=== PATIENT | female | born 1970 | race Caucasian/White ===

== ENCOUNTER → 2018-09-17 14:10 | Outpatient (CLI) | payer OTHER, SELFPAY ==
--- NOTE | 2018-09-17 14:17 | RAD_ITS ---
STUDY: X-RAY - PELVIS REASON FOR EXAM: Female, 47 years old. Inflammatory polyarthropathy. TECHNIQUE: One view of the pelvis was obtained. COMPARISON: None. FINDINGS: There is a non-specific bowel gas pattern. Normal visualized soft tissue structures. Normal bilateral iliac wings, sacroiliac joints and visualized sacrum. Normal visualized bilateral superior and inferior pubic rami. Normal pubic symphysis. Normal ischial tuberosities. Normal visualized right femoral head. Normal right acetabulum. Normal right hip joint. Normal visualized left femoral head. Normal left acetabulum. Normal left hip joint. RAD/Pelvis 1 or 2 Views IMPRESSION: Normal x-ray examination of the pelvis. Electronically Signed: Slava Lake MD at 18:46 EDT , Service support ,
[2018-09-17 15:52] LABS: Absolute Lymphocyte Count 1.12 X10^3/ul (0.83-4.51); Absolute Neutrophil Count 4.5 X10^3/uL (2.0-7.7); Basophil# 0.02 X10^3/uL; Basophil% 0.3 % (0-1); Eosinophil# 0.07 X10^3/uL; Eosinophils% 1.1 % (0-5); Hemoglobin 13.9 g/dl (12.0-15.0); Lymphocyte # 1.12 X10^3/ul (4.0); Lymphocyte % 17.7 % (19-41); Mean Corp Hgb Conc 33.1 g/gl (32-36); Mean Corpuscular Hgb 31.7 pg (27.0-32.0); Mean Corpuscular Volume 95.9 fL (81-99); Mean Platelet Vol. 10.1 fl (6.2-12.0); Monocyte# 0.53 X10^3/uL; Monocyte% 8.4 % (0-10); Neutrophil # 4.53 X10^3/uL (2.7-7.7); Neutrophil % 71.9 % (47-70); Platelet Count 248 K/mm3 (150-450); RBC Distribution Width CV 12.6 % (11.6-14.6); RBC Distribution Width SD 43.6 fl (35.1-43.9); Red Blood Count 4.38 M/mm3 (4.2-5.4); White Blood Count 6.3 K/mm3 (4.4-11.0)
[2018-09-17 15:53] LABS: Color, Urine Yellow (Yellow); Glucose, Dipstick Normal (Normal); Ketone-Dipstick Negative (Negative); Leukocyte Esterase-Dipstick Negative /ul (Negative); Nitrite-Dipstick Negative (Negative); Occult Blood-Urine 10 /ul (Negative); Protein-Dipstick Negative (Negative); Urine Bilirubin Dipstick Negative (Negative); Urine Clarity Clear (Clear); Urine Urobilinogen Normal (Normal); Urine pH 6.5 (5.0 - 8.0)
[2018-09-17 16:02] LABS: Erythrocyte Sedimentation Rate 2 mm/hr (0-20)
[2018-09-17 16:06] LABS: POSITIVE COUNT NO; POSITIVE DIFFERENTIAL NO; POSITIVE MORPHOLOGY NO
[2018-09-17 16:11] LABS: Protein, Urine (Random) 11.5 mg/dL (<11.9); Protein:Creat Ratio 234 mg/g CRE (0-200)
[2018-09-17 16:16] LABS: ALB/GLOB Ratio 1.1 RATIO (0.9-2.4); AST(SGOT) 15 U/L (15-37); Alanine Aminotransfer ALT/SGPT 22 U/L (13-56); Albumin, Serum 3.7 g/dL (3.2-5.0); Alkaline Phosphatase 64 U/L (45-117); Anion Gap 8 (5-15); BUN 14 mg/dL (7-18); BUN/Creat Ratio 11.8 RATIO (10-20); CRP < 2.90 mg/L (0.0-3.0); Calcium,Total 8.5 mg/dL (8.5-10.1); Chloride 107 mmol/L (98-107); Creatinine, Serum 1.19 mg/dL (0.55-1.02); EST Glomerular Filtration Rate 52 mL/min (>60); Est Glom Filt Rate - Afr Amer 62 mL/min (>60); Globulin 3.5 g/dL (2.2-4.2); Glucose 79 mg/dL (74-106); Potassium 3.7 mmol/L (3.5-5.1); Protein, Total 7.2 g/dL (6.4-8.2); Rheumatoid Factor < 10.0 IU/mL (<15); Sodium Level 141 mmol/L (136-145)
[2018-09-21 14:07] LABS: Anti-Centromere B Ab <0.2 AI (0.0-0.9); Anti-Jo <0.2 AI (0.0-0.9); Anti-Scleroderma-70 AB <0.2 AI (0.0-0.9); RNP Ab <0.2 AI (0.0-0.9); SJOGREN'S Anti-SS-A test < 0.2 AI (0.0-0.9); SJOGREN'S Anti-SS-B test < 0.2 AI (0.0-0.9); Smith Ab <0.2 AI (0.0-0.9)
[2018-09-21 15:47] LABS: ANTINUCLEAR ANTIBODIES DIRECT Negative (Negative); Anti-dsDNA Ab <1 IU/mL (0-9)
[2018-09-22 20:08] LABS: Complement C3 128 mg/dL (82-167)
[2018-09-23 09:14] LABS: CCP IgG Antibodies 6 units (0-19); HEPATITIS B SURFACE AG Negative (Negative); HLA B27 Negative (.); Hep B Surface Antibodies Reactive (.); Hep C Antibodies <0.1 s/co ratio (0.0-0.9)
== END ==
PROVIDERS: Family Provider Internal Medicine; PCP Internal Medicine; Referring Provider Internal Medicine Rheumatology; Visit Provider Internal Medicine Rheumatology
DX: M06.4 Inflammatory polyarthropathy (principal); M79.7 Fibromyalgia; I73.00 Raynaud's syndrome without gangrene; R53.82 Chronic fatigue, unspecified; G43.909 Migraine, unspecified, not intractable, without status migrainosus
CPT/HCPCS: 36415; 72170; 80053; 81002; 81374; 82570; 84156; 85025; 85652; 86038; 86140; 86160; 86200; 86225; 86235; 86431; 86706; 86803; 87340

== ENCOUNTER → 2018-10-19 12:34 | Outpatient (CLI) | payer OTHER, SELFPAY ==
[2018-10-19 14:12] LABS: ALB/GLOB Ratio 1.1 RATIO (0.9-2.4); AST(SGOT) 20 U/L (15-37); Alanine Aminotransfer ALT/SGPT 21 U/L (13-56); Albumin, Serum 3.5 g/dL (3.2-5.0); Alkaline Phosphatase 65 U/L (45-117); Anion Gap 9 (5-15); BUN 18 mg/dL (7-18); BUN/Creat Ratio 14.2 RATIO (10-20); Calcium,Total 8.5 mg/dL (8.5-10.1); Chloride 106 mmol/L (98-107); Creatinine, Serum 1.27 mg/dL (0.55-1.02); EST Glomerular Filtration Rate 48 mL/min (>60); Est Glom Filt Rate - Afr Amer 58 mL/min (>60); Globulin 3.3 g/dL (2.2-4.2); Glucose 85 mg/dL (74-106); Potassium 3.5 mmol/L (3.5-5.1); Protein, Total 6.8 g/dL (6.4-8.2); Sodium Level 142 mmol/L (136-145)
--- OUTSIDE RECORDS SUMMARY | 2018-12-12 19:01 | XMS RPT_ITS | Continuity of Care Document ---
:1970 Author Organization [facility] Address [address] [facility] [address] [place] [address] Phone Care Team Providers Name Role Phone Rosalinda Garrett DO Unavailable Tanphaichitr - Childers, Neville Unavailable Jhoan Burks MD Unavailable Nadir Bangura DO Unavailable Juancarlos Mon Unavailable Albertina Lopez Unavailable Marisela Mata LPN Unavailable Unavailable MAMTA Choi Unavailable Unavailable Amy Gonzalez CNP Unavailable Unavailable Unavailable Problems Name Dates Details Abnormal MRI (R93.89, 793.99) Status: Active Abnormal TSH (R79.89, 790.6) Status: Active Acute bronchitis, unspecified organism (J20.9, 466.0) Status: Active Acute intractable headache, unspecified headache type (R51, 784.0) Comments: histrory of migraines Status: Active Anemia (D64.9, 285.9) Status: Active Anxiety (F41.9, 300.00) Comments: secondary to current pain and worry Status: Active Asthma (J45.909, 493.90) Status: Active Bilateral hip pain (M25.551, 719.45) Comments: will see labs and determine need for steroid Status: Active BMI 26.0-26.9,adult (Z68.26, V85.22) Status: Active Breast lump in upper inner quadrant (N63.0, 611.72) Status: Active Bronchitis (J40, 490) Status: Active Bronchitis (J40, 490) Comments: h/o mycoplasma few months ago Status: Active Chronic kidney disease, stage III (moderate) (N18.3, 585.3) Comments: saw Dr. floyd, 2 biopsy show IgA nephropathy not lupus nephritis. not treat unless protein greater 1gm Status: Active Chronic migraine without aura with status migrainosus, not intractable (G43.701, 346.72) Comments: made appt with neuro she is seeing Sanjana Francois - soonest appt is julymore freq and lots of pressure on R side which is new Status: Active Cough (R05, 786.2) Status: Active Cough (R05, 786.2) Status: Active Current nonsmoker (Renamed from Current non-smoker) (Z78.9, V49.89) Status: Active Deliveries (Parity) Comments: 2 c-sections Status: Active Depressive disorder (F32.9, 311) Status: Active Edema, unspecified (R60.9, 782.3) Comments: low ext now. ? nsaids ? rheum issue. ? gabapentin Status: Active Encounter for screening mammogram for breast cancer (Renamed from Encounter for screening mammogram for malignant neoplasm of breast) (Z12.31, V76.12) Status: Active Essential hypertension (I10, 401.9) Comments: stable now Status: Active Fatigue (R53.83, 780.79) Comments: Dr. lopez put on ritalin for chronic fatigue related to rheum. things. this has helped. Status: Active Herpes (B00.9, 054.9) Status: Active Hypercholesteremia (E78.00, 272.0) Status: Active Hypertensive kidney disease (I12.9, 403.90) Status: Active Hypokalemia (E87.6, 276.8) Comments: on kcl and low last time Status: Active Hypothyroidism (acquired) (E03.9, 244.9) Status: Active IgA nephropathy, chronic (N02.8, 583.9) Status: Active Insomnia, persistent (G47.00, 307.42) Status: Active Joint pain (M25.50, 719.40) Comments: seeing rheum tomorrow - dr nunez Status: Active Long-term use of Plaquenil (Z79.899, V58.69) Status: Active Memory loss (R41.3, 780.93) Comments: had before topamax will do neuropsych. testing. talk about removing meds and see where balance out. topamax help migraines Status: Active Migraine (G43.909, 346.90) Status: Active Mild degeneration of cervical intervertebral disc (M50.30, 722.4) Status: Active MRI of brain abnormal (R90.89, 793.0) Comments: history Status: Active Nausea (R11.0, 787.02) Status: Active Neck pain on right side (M54.2, 723.1) Status: Active Nephritis (N05.9, 583.9) Comments: has been biopsied in past, will relook at note from Dr. Floyd recheck kidney numbers Status: Active Nonsmoker (Z78.9, V49.89) Status: Active Occasional tremors (R25.1, 781.0) Status: Active Palpitation (R00.2, 785.1) Comments: from PVC seen in ER and not too many. right now feels it but chest pain or sob lightheadedness. ? related to recent thyriod adjustment. if nto better after thryiod adjusted or concerning signs and sympt oms then holter and echo.went to er, but thyroid med just changed dt thyroid being off, er doctor told her may be the thyroid causing the PVC's, patient states they have continued on and off since tri p to ER, says it feels like a flutter at times in chest and needs to take deep breath, denies any pain Status: Active Pregnancies () Comments: 2 Status: Active Pupils of different size (H57.02, 379.41) Status: Active Raynaud's syndrome (I73.00, 443.0) Status: Active Renal insufficiency (N28.9, 593.9) Comments: drink more water and avoid-nsaid Status: Active Rhabdomyolysis (Renamed from Disease characterized by destruction of skeletal muscle) (M62.82, 728.88) 2010 Comments: talk to Dr. verduzco last time. [facility] up [facility] farrell [facility] neuro Dr. lior [facility] neuro. Dr. lopez [facility] rheum. muscle biopsy neg. PFK testing neg, myophosphorylase and myoadenylate de aminase at the medical center, mitochondrial screening neg, [facility] rhabo/myopathy neg Status: Active Rheumatoid arthritis (M06.9, 714.0) Status: Active Sleep disorder (G47.9, 780.50) Comments: at night muscles twitching and neuromusclar specialist recommend sleep study still needs to do on ritalin use doxepim at night when itchign to help sleep Status: Active Systemic lupus erythematosus (M32.9, 710.0) 2002 Comments: deanna managing this and RA Status: Active Therapeutic drug monitoring (Z51.81, V58.83) Status: Active Uncomplicated herpes simplex (B00.9, 054.9) Status: Active UTI (urinary tract infection), uncomplicated (N39.0, 599.0) Status: Active Vertigo (R42, 780.4) Status: Active Well woman exam with routine gynecological exam (Z01.419, V72.31) Status: Active Medications Name Dates Details Advair Diskus 100-50 MCG/DOSE Inhalation Aerosol Powder Breath Activated 1 puff Aero Pow Br Act bid for 90 days Quantity: 6 {Box} Refills: 0 Ordered:24-Jan-2017 Birdie Garrett DO, DO, Kathleen Start : 24-Jan-2017 Active REILLY, 180MG (Oral Tablet) 1 Tablet qd for 0 days Quantity: 90 {Tablet} Refills: 3 Ordered:21-Jan-2011 Long RELAY MOTORMAN, Marisela L Start : 21-Jan-2011 Active Cardizem CD 120 MG Oral Capsule Extended Release 24 Hour 1 (one) Capsule ER 24HR qd for 90 days Quantity: 90 {Capsule} Refills: 3 Ordered:13-May-2018 Birdie Garrett DO, DO, Kathleen Start : 13-May-2018 Active Doxepin HCl 25 MG Oral Capsule 1 (one) Capsule qhs prn for 90 days Quantity: 90 {Capsule} Refills: 1 Ordered:27-Nov-2016 Birdie Garrett DO, DO, Kathleen Start : 27-Nov-2016 Active Gabapentin 300 MG Oral Capsule 2 (two) Capsule qhs for 90 days Quantity: 180 {Capsule} Refills: 0 Ordered:29-Oct-2018 Birdie Garrett DO, DO, Kathleen Start : 29-Oct-2018 Active Comments:M50.30 Hydrocodone-Acetaminophen 5-325 MG Oral Tablet 1 (one) Tablet Tablet 1-2 every 6 h ours prn migraine for 0 days Quantity: 10 {Tablet} Refills: 0 Ordered:26-Mar-2016 Liberty Choi MAMTA Start : 26-Mar-2016 Active Comments:ana Al-Patel M20 20 MEQ Oral Tablet Extended Release uad Tablet ER fri for 90 days Quantity: 90 {Tablet} Refills: 0 Ordered:28-Sep-2018 Birdie Garrett DO, DO, Kathleen Start : 28-Sep-2018 Active Lasix 20 MG Oral Tablet uad Tablet fri for 90 days Quantity: 180 {Tablet} Refills: 0 Ordered:28-Sep-2018 Birdie Garrett DO, DO, Kathleen Start : 28-Sep-2018 Active Maxalt 10 MG Oral Tablet uad Tablet one po at onset of migraine then may repeat in 2 hours as need. no more than 2 in 24 hours. for 0 days Quantity: 12 {Tablet} Refills: 0 Ordered:26-Oct-2018 Lisa CONDEAmy Start : 26-Oct-2018 Active Maxalt 10 MG Oral Tablet uad Tablet one po at onset of migraine then may repeat in 2 hours as need. no more than 2 in 24 hours. for 6 days Quantity: 12 {Tablet} Refills: 0 Ordered:26-Oct-2018 Belempedro pablo ELTONAmy Start : 26-Oct-2018 Active Omeprazole 40 MG Oral Capsule Delayed Release [address] daily for 90 days Quantity: 90 {Capsule} Refills: 0 Ordered:28-Sep-2018 Birdie Garrett DO, DO, Kathleen Start : 28-Sep-2018 Active Plaquenil 200 MG Oral Tablet 2 Tablet qd for 90 days Quantity: 180 {Tablet} Refills: 0 Ordered:07-Oct-2018 Birdie Garrett DO, DO, Kathleen Start : 07-Oct-2018 Active PredniSONE 20 MG Oral Tablet 1 (one) Tablet bid for 2days then qd for 4days for 6 days Quantity: 8 {Tablet} Refills: 0 Ordered:26-Oct-2018 Lisa CONDE Amy Joseph Start : 26-Oct-2018 Active PROzac 20 MG Oral Capsule 3 (three) Capsule qd for 90 days Quantity: 360 {Capsule} Refills: 0 Ordered:28-Sep-2018 Birdie Garrett DO, DO, Kathleen Start : 28-Sep-2018 Active RITALIN, 10MG (Oral Tablet) 1 (one) Tablet Tablet BID for 0 days Quantity: 60 {Tablet} Refills: 0 Ordered:13-Jul-2015 Hillary Russell MD Start : 13-Jul-2015 Active Singulair 10 MG Oral Tablet 1 Tablet qd for 90 days Quantity: 90 {Tablet} Refills: 0 Ordered:28-Sep-2018 Birdie Garrett DO, DO, Kathleen Start : 28-Sep-2018 Active Synthroid 50 MCG Oral Tablet 1 Tablet daily for 0 days Quantity: 90 {Tablet} Refills: 3 Ordered:03-Aug-2018 Birdie Garrett DO, DO, Kathleen Start : 03-Aug-2018 Active Comments:on empty stomach in am with no food Topamax 50 MG Oral Tablet 2 (two) Tablet in AM and 2 tabs in PM for 90 days Quantity: 360 {Tablet} Refills: 0 Ordered:28-Sep-2018 Birdie Garrett DO, DO, Kathleen Start : 28-Sep-2018 Active TraMADol HCl 50 MG Oral Tablet 1 bid/prn (50 MG) Active Valtrex 1 GM Oral Tablet 1 Tablet bid 10 days for 10 days Quantity: 20 {Tablet} Refills: 1 Ordered:22-Sep-2018 Lisa CONDE Amy Joseph Start : 22-Sep-2018 Active Comments:ok to dispense generic Valtrex 1 GM Oral Tablet 1 Tablet tid for 10 days for 0 days Quantity: 30 {Tablet} Refills: 0 Ordered:10-Jun-2018 Birdie Garrett DO, DO, Kathleen Start : 10-Jun-2018 Active Ventolin HFA 108 (90 Base) MCG/ACT Inhalation Aerosol Solution 2 (two) Aerosol Soln Aerosol Soln q 6hr prn for 0 days Quantity: 1 {Inhaler} Refills: 0 Ordered:13-Dec-2016 Liberty Choi LPN Start : 13-Dec-2016 Active ANUSOL-HC, 25MG (Rectal Suppository) 1 Suppository bid prn for 0 days Quantity: 10 {Suppository} Refills: 1 Ordered:26-Nov-2011 Saida Chau LPN Start : 27-Sep-2010 End : 26-Nov-2011 Inactive Benzonatate 200 MG Oral Capsule 1 (one) Capsule tid prn cough for 0 days Quantity: 30 {Capsule} Refills: 0 Ordered:20-Feb-2017 JAMAR Wesley Start : 19-Dec-2016 End : 20-Feb-2017 Inactive Biaxin 500 MG Oral Tablet 1 (one) Tablet Tablet bid for 0 days Quantity: 20 {Tablet} Refills: 0 Ordered:02-Oct-2017 Liberty Choi LPN Start : 11-Apr-2017 End : 02-Oct-2017 Inactive CIPRO, 500MG (Oral Tablet) 1 (one) Tablet bid for 7 days Quantity: 14 {QS} Refills: 0 Ordered:11-Sep-2015 Belempedro pablo ELTONAmy Start : 11-Sep-2015 End : 18-Sep-2015 Inactive CYMBALTA, 30MG (Oral Capsule Delayed Release Particles) 2 (two) Capsule DR Part bid for 0 days Quantity: 60 {Capsule} Refills: 2 Ordered:12-Feb-2016 JAMAR Wesley Start : 12-Feb-2016 End : 12-Feb-2016 Inactive ENBREL, 50MG/ML (Subcutaneous Solution) 1 Solution q week for 30 days Refills: 0 Ordered:03-May-2013 Saida Chau LPN Start : 14-Aug-2012 End : 03-May-2013 Inactive ETODOLAC, 500MG (Oral Tablet) 1 bid for 0 days Refills: 0 Ordered:27-Sep-2010 JAMAR Wesley End : 27-Sep-2010 Inactive FLUOXETINE HCL, 20MG (Oral Capsule) 3 (three) Capsule daily for 90 days Quantity: 270 {Capsule} Refills: 0 Ordered:28-Jun-2013 Marisela Mata LPN Start : 28-Jun-2013 End : 26-Sep-2013 Inactive FOLIC ACID, 1MG (Oral Tablet) 2 qd for 0 days Refills: 0 Ordered:14-Aug-2012 Liberty Choi LPN End : 14-Aug-2012 Inactive HYCODEN (Oral Syrup) (Free Text) 1 Syrup q 6 hr prn for 0 days Quantity: 90 {Milliliter} Refills: 0 Ordered:13-Dec-2016 Liberty Choi LPN Start : 05-Dec-2016 End : 13-Dec-2016 Inactive Comments:ninety HYDROCHLOROTHIAZIDE, 25MG (Oral Tablet) 1 Tablet qd for 0 days Quantity: 90 {Tablet} Refills: 3 Ordered:05-May-2012 JAMAR Wesley Start : 21-Jan-2011 End : 05-May-2012 Inactive IMURAN, 50MG (Oral Tablet) 1 qd for 0 days Refills: 0 Ordered:14-Aug-2012 Liberty Choi LPN End : 14-Aug-2012 Inactive KETOROLAC TROMETHAMINE, 10MG (Oral Tablet) 1 Tablet q6hrs x 48hrs for 2 days Refills: 0 Ordered:13-Mar-2012 Lisa CONDEAmy Start : 13-Mar-2012 End : 15-Mar-2012 Inactive Levaquin 500 MG Oral Tablet 1 Tablet qd for 0 days Quantity: 10 {Tablet} Refills: 0 Ordered:10-Jun-2018 Marisela Mata LPN Start : 30-Oct-2017 End : 10-Jun-2018 Inactive LEVOFLOXACIN, 500MG (Oral Tablet) 1 (one) Tablet qd for 0 days Quantity: 10 {Tablet} Refills: 0 Ordered:26-Mar-2016 JAMAR Wesley Start : 21-Mar-2016 End : 26-Mar-2016 Inactive LIDOCAINE HCL, 4% (Mouth/Throat Solution) 1 Solution 10 cc swish and spit or dab on ulcer in mouth prn for 0 days Quantity: 240 {Milliliter} Refills: 0 Ordered:26-Jun-2015 JAMAR Wesley Start : 25-Jan-2013 End : 26-Jun-2015 Inactive LISINOPRIL-HYDROCHLOROTHIAZIDE, 10-12.5MG (Oral Tablet) 1 2x weekly for 0 days Refills: 0 Ordered:21-Jan-2011 Ximena Sue End : 21-Jan-2011 Inactive METHOTREXATE, 2.5MG (Oral Tablet) 6 tablets once weekly for 0 days Refills: 0 Ordered:14-Aug-2012 Liberty Choi LPN End : 14-Aug-2012 Inactive NEXIUM, 40MG (Oral Capsule Delayed Release) 1 qd (40 MG) Inactive NIZORAL, 2% (External Shampoo) uad Shampoo qd for 0 days Quantity: 1 {Shampoo} Refills: 3 Ordered:26-Jun-2015 JAMAR Wesley Start : 21-Jan-2013 End : 26-Jun-2015 Inactive NORVASC, 5MG (Oral Tablet) 1 qd through the winter months (5 MG) Inactive Comments:Dr. López POTASSIUM CHLORIDE, 20MEQ (Oral Packet) 1 Packet daily for 0 days Quantity: 30 {Packet} Refills: 3 Ordered:01-Jan-2012 Riding, Kristin Start : 31-Dec-2011 End : 01-Jan-2012 Inactive PredniSONE 10 MG Oral Tablet 2 Tablet qd for 3 days when have flare up for 0 days Quantity: 30 {Tablet} Refills: 0 Ordered:10-Jun-2018 Marisela Mata LPN Start : 27-May-2018 End : 10-Jun-2018 Inactive Comments:with food PREDNISONE, 20MG (Oral Tablet) tad Tablet uad for 0 days Refills: 0 Ordered:04-Feb-2012 JAMAR Wesley Start : 12-Dec-2011 End : 04-Feb-2012 Inactive Comments:1 tab bid for 3 day and 1 tab daily for 4 days then 1/2 tab daily for 4 days PROMETHAZINE HCL, 25MG (Oral Tablet) 1 Tablet q6-8 hrs prn for 0 days Quantity: 20 {Tablet} Refills: 0 Ordered:24-Mar-2012 JAMAR Wesley Start : 13-Mar-2012 End : 24-Mar-2012 Inactive PROZAC, 40MG (Oral Capsule) 1 Capsule daily for 0 days Quantity: 90 {Capsule} Refills: 1 Ordered:05-Oct-2013 JAMAR eWsley Start : 15-Mar-2013 End : 05-Oct-2013 Inactive TESSALON, 200MG (Oral Capsule) 1 Capsule tid for 0 days Quantity: 30 {Capsule} Refills: 0 Ordered:26-Nov-2011 Saida Chau LPN Start : 14-Oct-2011 End : 26-Nov-2011 Inactive TOPAMAX SPRINKLE, 25MG (Oral Capsule Sprinkle) 1 Cap Sprinkle bid for 0 days Quantity: 60 {Cap_Sprinkle} Refills: 0 Ordered:03-Jan-2012 Saida Chau LPN Start : 31-Dec-2011 End : 03-Jan-2012 Inactive TUMS, 500MG (Oral Tablet Chewable) 2 (two) Tablet Chewable tid for 0 days Quantity: 1 {package(s)} Refills: 0 Ordered:26-Jun-2015 JAMAR Wesley Start : 18-Jun-2013 End : 26-Jun-2015 Inactive VICODIN ES, 7.5-300MG (Oral Tablet) 1 (one) Tablet Tablet take one now then in 2 hrs if migraine not gone for 0 days Quantity: 2 {Tablet} Refills: 0 Ordered:26-Jun-2015 JAMAR Wesley Start : 10-May-2014 End : 26-Jun-2015 Inactive CYMBALTA, 20MG (Oral Capsule Delayed Release Particles) 3 (three) Capsule DR Part qd for 30 days Refills: 0 Ordered:01-Apr-2014 Amy Gonzalez CNP Start : 31-Mar-2014 End : 01-Apr-2014 Discontinued DOXEPIN HCL, 25MG (Oral Capsule) 1 qhs/prn (25 MG) End : 01-Apr-2014 Discontinued FLEXERIL, 10MG (Oral Tablet) 1 Tablet bid prn for 0 days Quantity: 30 {Tablet} Refills: 0 Ordered:03-May-2013 Amy Gonzalez CNP Start : 03-May-2013 End : 01-Apr-2014 Discontinued Comments:This order discontinued per [facility]. HYDROXYZINE HCL, 25MG (Oral Tablet) 1 tid/prn (25 MG) End : 01-Apr-2014 Discontinued NEXIUM, 40MG (Oral Capsule Delayed Release) [address] daily for 0 days Quantity: 90 {Capsule_DR} Refills: 3 Ordered:04-Feb-2012 Hillary Russell MD Start : 04-Feb-2012 End : 04-Feb-2012 Discontinued PROVIGIL, 100MG (Oral Tablet) 1 Tablet daily for 0 days Quantity: 30 {Tablet} Refills: 0 Ordered:28-Feb-2015 Hillary Russell MD Start : 28-Feb-2015 End : 28-Feb-2015 Discontinued VICODIN, 5-500MG (Oral Tablet) 1-2 Tablet every 6hours prn for 0 days Quantity: 30 {Tablet} Refills: 0 Ordered:24-Nov-2012 Marisela Mata LPN Start : 24-Nov-2012 End : 27-Dec-2014 Discontinued Comments:This order discontinued per [facility]. Allergies and Adverse Reactions Name Dates Details No Known Allergies (Allergy) Onset: 11-Apr-2017 Status: Active No Known Drug Allergies (Allergy) Status: Active Past Medical History Name Dates Details Abdominal pain (R10.9, 789.00) Comments: rt lower abdn Status: Inactive as of 26-Jun-2015 Abdominal pain, acute, generalized (R10.84, 789.07) Status: Inactive as of 26-Jun-2015 Abdominal pain, acute, left lower quadrant (R10.32, 789.04) Comments: possible muscle strain from coughing vs small ventral hernia ? will see how feels when stops coughing and if pain persists will refer to surgeon Status: Inactive as of 26-Jun-2015 Abnormal TSH (R79.89, 790.6) Comments: pt having alot signs and symptoms of thyriod low and with autoimmune and myuscle issue will treat aware then commited to thryiod meds all life Status: Inactive as of 26-Jun-2015 Acute asthma exacerbation (Renamed from Asthma with acute exacerbation) (J45.901, 493.92) Status: Inactive as of 19-Mar-2017 Acute sinusitis, unspecified (J01.90, 461.9) Status: Inactive as of 26-Jun-2015 Allergic rhinitis (J30.9, 477.9) Comments: recommend otc reilly if need. Status: Inactive as of 30-Oct-2017 Arthritis (M19.90, 716.90) Status: Inactive as of 26-Jun-2015 Bilateral hip bursitis (M70.71, 726.5) Status: Inactive as of 19-Mar-2017 BMI 25.0-25.9,adult (Z68.25, V85.21) Status: Inactive as of 10-Jun-2018 BMI 26.0-26.9,adult (Z68.26, V85.22) Status: Inactive as of 10-Jun-2018 Bronchitis (J40, 490) Status: Inactive as of 26-Jun-2015 Bronchitis, acute (J20.9, 466.0) Status: Inactive as of 26-Jun-2015 Chest pain (R07.9, 786.50) Comments: chest pain reproducible, doubt cardiac suspect musculoskeletal history of rhabdo in past with exercise checking labsrunning sweeper 2 days ago, with pain in chest today Status: Inactive as of 26-Jun-2015 Chills (R68.83, 780.64) Status: Inactive as of 26-Mar-2016 CKD (chronic kidney disease) (585.9) Comments: followed by Boris he say IGA nephropathy Status: Inactive as of 19-Oct-2015 Cough (R05, 786.2) Status: Inactive as of 26-Jun-2015 Decubitus ulcer of coccyx (707.03) Status: Inactive as of 26-Jun-2015 Dehydration (E86.0, 276.51) Status: Inactive as of 26-Jun-2015 Dehydration symptoms (783.9) Status: Inactive as of 26-Jun-2015 DIARRHEA (R19.7, 787.91) Status: Inactive as of 26-Jun-2015 Encounter for pre-employment examination (Z02.1, V70.5) Comments: reveiwed with patient recent tests labs. no exercise with rhabdo. eat well. MILY no BSO. due mammo. recommend calcium one a day. Status: Inactive as of 26-Jun-2015 Eye swelling, bilateral (H57.8, 379.92) Status: Inactive as of 30-Oct-2017 Fever and chills (R50.9, 780.60) Status: Resolved as of 13-Dec-2016 Flank pain (R10.9, 789.09) Status: Inactive as of 19-Oct-2015 Gastrointestinal bleeding (K92.2, 578.9) Status: Inactive as of 26-Jun-2015 Genital ulcer, female (629.89) Comments: last ulcer HSV negative. called and takl to Dr. Nunez at [facility] rhe[facility]. he does want biopsy since just ssterted do biopsy today Status: Inactive as of 26-Jun-2015 Headache (R51, 784.0) Comments: pt having migraine headacehes. topamax been working. restart with these in last 6months had 3 bad ones. have maxalt. bad one recently ? neck, ? barometric pressure changes, need to get sleep evaluated. willgive toradol and phenegran Status: Inactive as of 19-Mar-2017 Headache (R51, 784.0) Status: Inactive as of 30-Oct-2017 Hematuria (R31.9, 599.70) Comments: treat ed for uti but cx negative. will recheck urine in follow up in few weeks Status: Inactive as of 30-Oct-2017 Hematuria, microscopic (R31.29, 599.72) Status: Inactive as of 26-Mar-2016 Hypocalcemia (E83.51, 275.41) Status: Inactive as of 19-Oct-2015 Inflamed skin tag (L91.8, 701.9) Status: Inactive as of 26-Jun-2015 KIDNEY DISEASE, CHRONIC, STAGE I (585.1) Status: Inactive as of 26-Jun-2015 Laceration (879.8) Status: Inactive as of 26-Jun-2015 Low back pain (M54.5, 724.2) Comments: suspect kidney stone Status: Inactive as of 26-Jun-2015 Mouth ulcers (528.9) Status: Inactive as of 26-Jun-2015 Muscle pain (M79.10, 729.1) Comments: history of rhabdo unknown Status: Inactive as of 26-Jun-2015 Pelvic pain in female (R10.2, 625.9) Status: Inactive as of 19-Mar-2017 Physical exam, routine (Z00.00, V70.0) Comments: MILY no BSO.mammo 1-13 had all immunizations Status: Inactive as of 26-Jun-2015 Pruritic disorder (L29.9, 698.9) Comments: better but still have bad episodes. so bad get into tub. was daily now twice a week. doxepin and vistaril helping just start doxepin. still seeing rheum. Status: Inactive as of 26-Jun-2015 Rash (R21, 782.1) Status: Inactive as of 26-Jun-2015 Shortness of breath at rest (R06.02, 786.05) Comments: lungs sound good. ? anxiety about everything else. 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 toradol to PT muscle relaxant and pain med. Status: Inactive as of 19-Mar-2017 Thumb pain (M79.646, 729.5) Comments: secondary to laceration Status: Inactive as of 26-Jun-2015 Unspecified asthma with (acute) exacerbation (J45.901, 493.92) Status: Inactive as of 26-Jun-2015 Unspecified Diagnosis Status: Inactive as of 26-Jun-2015 Unspecified Diagnosis Status: Inactive as of 26-Jun-2015 Unspecified Diagnosis Status: Inactive as of 26-Jun-2015 Unspecified Diagnosis Status: Inactive as of 26-Jun-2015 Unspecified Diagnosis Status: Inactive as of 26-Jun-2015 Unspecified Diagnosis Status: Inactive as of 26-Jun-2015 Unspecified Diagnosis Status: Inactive as of 26-Jun-2015 Unspecified Diagnosis Status: Inactive as of 26-Jun-2015 Unspecified Diagnosis Status: Inactive as of 26-Jun-2015 Unspecified Diagnosis Status: Inactive as of 26-Jun-2015 UTI symptoms (R39.9, 788.99) Status: Inactive as of 19-Oct-2015 UTI symptoms (R39.9, 788.99) Status: Resolved as of 10-Jun-2018 Wheezing (R06.2, 786.07) Status: Inactive as of 26-Jun-2015 WWV V73.21 Status: Inactive as of 26-Jun-2015 Procedures Procedure Dates Details Section Completed Comments: 2 Hysterectomy; Abdominal Completed Comments: still has ovaries January 2009 Kidney biopsy 2004 benign Completed Kidney Problems Completed Comments: bx 2 mo ago Date Value Details 17-Sep-2018 Pelvis 1 or 2 Views Result: Comments: See Note; NOTES: [facility] Imaging Services [address] [place] [address] Pelvis 1 or 2 Views MR#: [id number] Acct: [id number] Name: KRISTIN FAUST Rep #: [id number] D OB: 1970 F 47 From: [place] MD PCP: Rosalinda Garrett DO Status: REG CLI Study: Pelvis 1 or 2 Views Date of Exam: 09/17/18 Exam# [id number] Ordering Dr: Re López MD STUDY: X-RAY - PELVIS REASON FOR EXAM: Female, 47 years old. Inflammatory polyarthropathy. TECHNIQUE: One view of the pelvis was obtained. COMPARISON: None. FINDINGS: There is a non-s pecific bowel gas pattern. Normal visualized soft tissue structures. Normal bilateral iliac wings, sacroiliac joints and visualized sacrum. Normal visualized bilateral superior and inferior pubic rami. Normal pubic symphysis. Normal ischial tuberosities. Normal visualized right femoral head. Normal right acetabulum. Normal right hip joint. Normal visualized left femoral head. Normal left acetabulum . Normal left hip joint. RAD/Pelvis 1 or 2 Views IMPRESSION: Normal x-ray examination of the pelvis. Electronically Signed: Slava Lake MD 2017 at 18:46 EDT , Service support , CC: Rosalinda Garrett DO; Re López MD Outside Machinist Supervisor: Signed 16-Oct-2017 Bilat Brst Sky Stand Alone Result: Comments: See Note; NOTES: [facility] Imaging Services [address] [place] [id number] Bilat Brst Sky Stand Alone MR#: [id number] Acct: [id number] Name: KRISTIN FAUST Rep #: [id number] : 1970 F 46 From: Oni Leone MD PCP: Rosalinda Garrett DO Status: [facility] CLI Study: Bilat Brst Sky Stand Alone Date of Exam: 10/16/17 Exam# [id number] Ordering Dr: Rosalinda Garrett MAMMOGRAPHY - BILATERAL SCREENING REASON FOR EXAM: Female, 46 years old. Routine annual screening examination. PERTINENT HISTORY: 1 month history of left breast lump. TECHNIQUE: Digital bilateral breast sky (3D mammographic acquisition) in the CC and MLO projections. 2-D mediolateral oblique (MLO) and craniocaudad (CC) views of both breasts were obtained. CAD: Full Field Digital Mammography wi th Computer Added Detection was performed. COMPARISON: Comparison is made with prior study dated June 27, 2014 and June 30, 2012. FINDINGS: Breast Composition: There are scattered areas of fibroglandular density. There are no dominant masses or suspicious calcifications. No other significant abnormalities are identified. There has been no significant change since the prior study. HPBI/Bilat Brst Sky Stand Alone IMPRESSION: Stable bilateral screening mammogram. With the patient's history of a palpabl e abnormality in the left breast, correlation with ultrasound is recommended. ASSESSMENT CATEGORY: Approximately 10% of breast cancers are not detected by mammogra phy. A normal mammogram should not delay biopsy of a clinically suspicious abnormality. [id number] Electronically Signed: Oni Leone MD at 14:42 EST Tel [phone], Service support [phone], CC: Rosalinda Garrett DO Outside Machinist Supervisor: Signed 16-Oct-2017 Breast Limited Unilateral Result: Comments: See Note; NOTES: [facility] Imaging Services [address] [place] [address] Breast Limited Unilateral MR#: [id number] Acct: [id number] Name: KRISTIN FAUST Rep #: [id number] : 1970 F 46 From: Oni Leone MD PCP: Rosalinda Garrett DO Status: REG CLI Study: Breast Limited Unilateral Date of Exam: 10/16/17 Exam# [id number] Ordering Dr: Rosalinda Garrett DO STUDY: ULTRASOUND BREAST - LEFT REASON FOR EXAM: Female, 46 years old. Palpable lump left breast. TECHNIQUE: Axial and longitudinal images of the LEFT breast were performed with a high resolution ultr asound transducer. COMPARISON: Comparison is made with prior mammogram done earlier today. FINDINGS: LEFT Breast: The upper inner quadrant and upper outer quadrant of the left breast was examined by ultrasound. There is homogeneous fibroglandular tissue. No solid or cystic mass lesion is seen US/Breast Limi mara Unilateral IMPRESSION: Unremarkable sonographic examination of the breasts. ASSESSMENT CATEGORY: BIRADS Category 1: Negative. A letter regarding these results wi ll be sent to the patient by the facility within 30 days. Electronically Signed: Oni Leone MD at 15:23 EST Tel [phone], Service support , CC: Rosalinda Garrett DO Outside Machinist Supervisor: Signed 16-Oct-2017 DIAG MAMM W/CAD, BILAT Result: Comments: See Note; NOTES: [facility] Imaging Services [address] [place] [address] DIAG MAMM W/CAD, BILAT MR#: [id number] Acct: [id number] Name: KRISTIN FAUST Rep #: [id number] : 1970 F 46 From: Oni Leone MD PCP: Rosalinda Garrett DO Status: REG CLI Study: DIAG MAMM W/CAD, BILAT Date of Exam: 10/16/17 Exam# [id number] Ordering Dr: Rosalinda Garrett DO MAMMOG TIFFANIE - BILATERAL SCREENING REASON FOR EXAM: Female, 46 years old. Routine annual screening examination. PERTINENT HISTORY: 1 month history of left breast lump. TECHNIQUE: Digital bilateral breast to mo (3D mammographic acquisition) in the CC and MLO projections. 2-D mediolateral oblique (MLO) and craniocaudad (CC) views of both breasts were obtained. CAD: Full Field Digital Mammography with Compute r Added Detection was performed. COMPARISON: Comparison is made with prior study dated June 27, 2014 and June 30, 2012. FINDINGS: Breast Composition: There are scattered areas of fibroglandular density. There are no dominant masses or suspicious calcifications. No other significant abnormalities are identified. There has been no significant change since the prior study. HPBI/DIAG MAMM W/CAD, BILAT IMPRESSION: Stable bilateral screening mammogram. With the patient's history of a palpable abnormality i n the left breast, correlation with ultrasound is recommended. ASSESSMENT CATEGORY: Approximately 10% of breast cancers are not detected by mammography. A normal m ammogram should not delay biopsy of a clinically suspicious abnormality. [id number] Electronically Signed: Oni Leone MD at 14:42 EST Tel [phone], Service support , Fa x [phone] CC: Rosalinda Garrett DO Outside Machinist Supervisor: Signed 04-Apr-2017 Brain W/WO Contrast Result: Comments: See Note; NOTES: [facility] Imaging Services [address] [place], [place] [id number] Verdana 4d Brain W/WO Contrast MR#: [id number] Acct: [id number] Name: KRISTIN FAUST Rep #: [id number] : 1970 F 46 From: Nir Zuleta MD PCP: Rosalinda Garrett DO Status: REG CLI Study: Brain W/WO Contrast Date of Exam: 04/04/17 Exam# [id number] Ordering Dr: Rosalinda Garrett DO STUDY: MRI BRAIN WITH AND WITHOUT CONTRAST REASON FOR EXAM: Female, 46 years old. Memory loss. Headaches. And equal pupils. Previous abnormal MRI. TECHNIQUE: Standardized multiplanar fat and water weighted puls e sequences were obtained. 7 ml of Gadavist contrast material was administered intravenously for the contrast portion of the examination. COMPARISON: 11/08/2015. FI NDINGS: Normal size of the ventricles and extra-axial spaces for the patient's age. A few bilateral subcortical white matter and left periatrial white matter faintly hyperintense foci on flair sequence are unchanged. They may be migraine-related changes or microvascular disease. No restricted diffusion to suspect acute ischemic infarct. Normal bilateral basal ganglia. Normal thalami. There is no ex tra-axial fluid accumulation. Normal flow voids within the major intracranial circulation suggesting patency by spin echo criteria. Normal venous enhancement. There is no enhancing intra-axial or extra -axial abnormality. Normal sella turcica, pituitary gland, infundibular stalk, optic chiasm and hypothalamus. Normal tectal plate and pineal gland. Normal midbrain, onelia and medulla. Normal cerebellum . Normal basal cisterns. Normal bilateral temporal bones. Normal bilateral internal auditory canals. No demonstrated orbital abnormality, within the constraints of a routine brain study. Mucosal edema in the left frontal sinus and the middle ethmoid sinus. Normal calvarium and skull base. Normal visualized soft tissue structures. Normal visualized upper cervical spine. ____ MRI/Brain W/WO Contrast IMPRESSION: 1. No MRI evidence of acute infarct, intracranial mass or acute intracranial abnormality. 2. Nonspecific subcortical and left periatrial wh ite matter T2 FLAIR hyperintensity foci may be migraine-related changes. Other possibilities include microvascular disease and least likely vasculitis. 3. No interval changes or new findings since 10/18. Electronically Signed: Nir Zuleta MD at 16:46 EDT , Service support , CC: Rosalinda Garrett DO Outside Machinist Supervisor: Signed 04-Apr-2017 MRA Head ONLY without Contrast Result: Comments: See Note; NOTES: [facility] Imaging Services [address] [place] [address] Verdana 4d MRA Head ONLY without Contrast MR#: [id number] Acct: [id number] Name: FISH FAUST Rep #: [id number] : 1970 F 46 From: Kian Pedroza MD PCP: Rosalinda Garrett DO Status: REG CLI Study: MRA Head ONLY without Contrast Date of Exam: 04/04/17 Exam# [id number] Ordering Dr: Rosalinda Herron DO STUDY: MRA OF THE HEAD WITHOUT CONTRAST REASON FOR EXAM: Female, 46 years old. Memory loss, anisocoria, headaches. TECHNIQUE: 3-D vppo-jj-elkjba (TOF) imaging was performed with M Radha. The study was performed unenhanced. COMPARISON: 08/25/2012 FINDINGS: Normal bilateral petrous carotid arteries. Normal right cavernous carotid artery with a nor mal supraclinoid bifurcation. Normal left cavernous carotid artery with a normal supraclinoid bifurcation. Normal right A1 segments of the anterior cerebral artery. Normal left A1 segments of the anter ior cerebral artery. Normal intact anterior communicating artery (ACOM). Normal bilateral A2 segments of the anterior cerebral arteries. Normal right M1 and M2 segments of the middle cerebral arteries, with a normal M1 bifurcation. Normal left M1 and M2 segments of the middle cerebral arteries, with a normal M1 bifurcation. There is non-visualization of the right posterior communicating artery (PCOM ). There is non-visualization of the left posterior communicating artery (PCOM). Normal bilateral vertebral arteries. Normal basilar artery with a normal basilar bifurcation. The visualized bilateral s uperior cerebellar (SCA) arteries are normal. Normal bilateral P1, P2 and visualized P3 segments of the posterior cerebral arteries. There is no demonstrated aneurysm of the [place] of [place]. There is no major vessel occlusion or hemodynamically significant stenosis. There is no demonstrated abnormality of the visualized brain. MRI/MRA Head ON LY without Contrast IMPRESSION: Normal MRA of the head, without any interval change from prior study. Electronically Signed: Marcos Pedroza MD at 1:46 EDT Tel , Service suppo rt , CC: Rosalinda Garrett DO Outside Machinist Supervisor: Signed 20-Apr-2016 Emergency Department Summary Result: Comments: See Note; NOTES: [facility] Medical Records Department [address] [place] [address] Emergency Department Summary MR#: [id number] Acct: [id number] Name: KRISTIN FAUST Rep #: [id number] : 1970 45 From: Markus Palma MD PCP: Rosalinda Garrett DO Status: DEP ER DATE OF SERVICE: 04/20/2016 HISTORY OF PRESENT ILLNESS: A 45-year-old woman who [facility] with myalgias that started yesterday with dark colored urine. This occurred after helping her mother lay yards of [employer]. She has history of autoimmune disorder, renal insufficiency and asthma. She states she has been drinking plenty of fluids. She reported dark urine this morning. She has no other complaints. PAST MEDICAL HISTORY: Autoimmune disorder, asthma, and renal insufficiency. PRIMA RY CARE PHYSICIAN: Dr. Garrett/Dr. Russell. PHYSICAL EXAMINATION: VITAL SIGNS: Remarkable for an elevated blood pressure of 158/103. HEENT: Unremarkable. She has slight cushingoid appearance. LUNGS : Clear to auscultation. HEART: Regular. ABDOMEN: Soft, nontender. She has no bruising, ecchymosis, petechia, or purpura noted. NEUROLOGIC: She is alert. She is oriented with nonfocal neurologic exam . EMERGENCY DEPARTMENT COURSE: The patient received 1 liter of normal saline. CPK was ordered. CPK is 116. She did pretty sure her urine is no longer door. It is a pale, yellow and clear in appearan ce. PLAN: Discharge to home. IMPRESSION: 1. Myalgia secondary to overuse. 2. History of autoimmune disorder. 3. History of renal insufficiency. DISPOSITION: Discharge. MD Annamaria Monet C: Rosalinda Garrett DO T: [facility] JOB: [id number] 04/20/162341 <Electronically signed by Markus Palma MD> Date Markus Palma MD Cosigner S ignature (If Indicated): Date CC: Rosalinda Garrett DO Date Dictated: 04/20/161741 Date Transcribed: 04/20/161741 Outside Machinist Supervisor: Signed 20-Apr-2016 Discharge Instruction Result: Comments: See Note; NOTES: [facility] Medical Records Department [address] [facility] [address] Discharge Instruction 04/20/161741 MR#: [id number] Acct: [id number] Name: KRISTIN FAUST Rep #: [id number] : 1970 45 From: Markus Palma MD PCP: Rosalinda Garrett DO Status: REG ER ED Disposition - Plan for ED Patient: Disposition: Home or Assisted Living [facility] Complaint: General Illness Instructions: ED Myalgias, ED Renal Insufficiency Referrals: Rosalinda Garrett DO [Primary Care Provider] - As Needed What to do if you have Problems For any incr eased pain, shortness of breath, bleeding, nausea or vomiting, chest pain, or any unexpected problems, contact your doctor. Call [facility] ([phone]) or report to the closest Emergency Room . Call 911 if necessary. 04/20/161743 <Electronically signed by Markus Palma MD> Date Markus Palma MD Cosigner Signature (If Ind icated): Date CC: Rosalindamann Garrett 23-Feb-2016 12 Lead Electrocardiogram Result: Comments: See Note; NOTES: [facility] Cardiovascular Services [address] [place] [address] 12 Lead EKG 02/22/16103 MR#: [id number] Acct: [id number] Name: KRISTIN FAUST Rep #: [id number] : 1970 45 From: Davi Lutz MD Attending Dr: Status: DEP ER Ordering Dr: Garcia Asencio MD Date: 02/22/16 Location: ED Sex: F C Admitted: Test Reason : LE FT ARM PAIN Blood Pressure : / mmHG Vent. Rate : 072 BPM Atrial Rate : 072 BPM P-R Int : 142 ms QRS Dur : 080 ms QT Int : 406 ms P-R-T Axes : 059 066 053 degrees QTc Int : 444 ms Normal sinus rhythm Normal ECG Confirmed by DAVI LUTZ ([id number]), newspaper or periodical editor DICK SHIPLEY ([id number]) on 02/23/2016 2:52:46 PM Referred By: ABHISHEK Confirmed By:DAVI LUTZ 02/23/16 1452 Date ___ Davi Lutz MD CC: Hillary Russell MD Date Dictated: 02/22/16103 Date Transcribed: 02/22/16103 Outside Machinist Supervisor: Signed 23-Feb-2016 EKG ([id number]) Result: [MEASUREMENTS ANALYSIS] Date of Test: 02/23/2016 13:44:59; Heart Rate: 72; DC Interval: 150; QRS: 88; QT Interval: 412; Corrected QT Interval (QTc): 433; P Wave [place]: 57; QRS Wave [place]: 55; T Wave [place]: 41; Blood Pressure: 130/86 [ECG DIAGNOSTIC STATEMENTS] Date of Test: 02/23/2016 13:44:59; Summary: Sinus Rhythm WITHIN NORMAL LIMITS 22-Feb-2016 Emergency Department Summary Result: Comments: See Note; NOTES: [facility] Medical Records Department [address] [place] [address] Emergency Department Summary MR#: [id number] Acct: [id number] Name: KRISTIN FAUST Rep #: [id number] : 1970 45 From: Garcia Asencio MD PCP: Hillary Russell MD Status: DEP ER DATE OF SERVICE: 02/22/2016 CHIEF COMPLAINT: Palpitations. HISTORY OF PRESENT ILL NESS: A 45-year-old female with 1-2 day history of intermittent palpitations, at times it feels irregular. No chest pain, no shortness of breath. She did have some atypical arm discomfort. This is no t associated with exertion. She has no known cardiac history. 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 She also has a history of hypothyro idism, recently they have adjusted her Synthroid due to her elevated TSH. That was done about a week ago. She has no history of DVT or PE. No travel, surgery, immobilization nor she on any contr ol pill. She has had no pleuritic chest pain or hemoptysis. PHYSICAL EXAMINATION: GENERAL: Very well-appearing 45-year-old female, vital signs are stable, afebrile. Pulse ox 100% on room air. No si gns of hypoxia. HEENT: Unremarkable. NECK: Nontender. Trachea is midline. No lymphadenopathy. LUNGS: Clear, equal, symmetric bilaterally. HEART: Regular rate and rhythm, rate 81, currently on my exa m, the patient is having no symptoms, on the monitor, she has a sinus rhythm. ABDOMEN: Soft, nontender. EXTREMITIES: Moves all 4. Calves are nontender, no edema, no cords. NEUROLOGICAL: Neurological ly, she is awake and alert with no focal deficits. SKIN: Unremarkable. EMERGENCY DEPARTMENT COURSE: Middle-aged female with palpitations. TEST RESULTS: Chest x-ray shows no acute process, read by myself and the radiologist. Her EKG shows a sinus rhythm, rate of 72 with no acute signs of RI, ischemia or dysrhythmia. White count of 11, H and H 14 and 43. Electrolytes are unremarkable. Creatinin e of 1.27. Previously it has been as high as 1.4. Troponin and cardiac enzymes are negative. Repeat exam, she is doing well at 0122 and also at 0416. She is symptom free now. She did have symptoms, t he nurse was in the room and stated she had a PVC at that time. IMPRESSION: 1. Acute palpitations. 2. PVCs. 3. History of thyroid disease. PLAN: Discharge to home. I told her since they just adj usted her thyroid medication a week or so ago, she can have that rechecked in 1-2 weeks and she follows up with primary care physician. There is no further therapy or medication changes that we need t o make at this time. Garcia Asencio MD C C: Hillary Russell MD T: [facility] JOB: [id number] 02/22/16 0535 <Electronically signed by Garcia Asencio MD> Date Garcia Asencio MD Cosigner Signature (If Indicated): Date CC: Hillary Russell MD Date Dictated: 02/22/16418 Date T ranscribed: 02/22/16418 Outside Machinist Supervisor: Signed 22-Feb-2016 Discharge Instruction Result: Comments: See Note; NOTES: [facility] Medical Records Department [address] [place] [address] Discharge Instruction 02/22/16 0148 MR#: [id number] Acct: [id number] Name: KRISTIN FAUST Rep #: [id number] : 1970 45 From: Garcia Asencio MD PCP: Hillary Russell MD Status: DEP ER ED Disposition - Plan for ED Patient: Disposition: Home or Assisted Living Chief Complaint: Palpitations Instructions: ED Palpitations Referrals: Hillary Russell MD [Primary Care Provider] - 1 Week if not improving Additional Instructions: FOLLOW UP TO HAVE TSH (THYROID) R ECHECKED IF NOT GETTING BETTER What to do if you have Problems For any increased pain, shortness of breath, bleeding, nausea or vomiting, chest pain, or any unexpected problems, contact your doct or. Call [facility] ([phone]) or report to the closest Emergency Room. Call 911 if necessary. 02/22/16 0529 <Electronically signed by Garcia Asencio MD> Date __ Garcia Asencio MD Cosigner Signature (If Indicated): Date CC: Hillary Russell MD 22-Feb-2016 Chest 1 View (Portable) Result: Comments: See Note; NOTES: [facility] Imaging Services [address] [place] [address] Verdana 4d Chest 1 View (Portable) MR#: [id number] Acct: [id number] Name: KRISTIN JACKSON Rep #: [id number] : 1970 F 45 From: Winston Espinosa PCP: Hillary Russell MD Status: REG ER Study: Chest 1 View (Portable) Date of Exam: 02/22/16 Exam# [id number] Ordering Dr: Garcia Asencio MD STUDY: X-RAY CHEST REASON FOR EXAM: Female, 45 years old. Palpitations TECHNIQUE: Single frontal view COMPARISON: 02/01/14 FINDINGS: The harris ngs are clear and expanded. There is no demonstrated pleural abnormality. Normal size heart. Normal mediastinum and ivy. Normal visualized pulmonary arteries. Normal visualized aortic arch and desc ending thoracic aorta. Normal visualized thoracic spine. Normal visualized ribs, clavicles, and shoulders. There is no demonstrated abnormality of the visualized soft tissue structures of the upp er abdomen. IMPRESSION: Normal x-ray examination of the chest. Electronically Signed: Winston Espinosa MD at 1:42 EDT , Servic e support [phone], RAD/Chest 1 View (Portable) IMPRESSION: Normal x-ray examination of the chest. Electronically Signed: Winston Espinosa MD at 1:42 EDT , Service support [phone], CC: Hillary Russell MD; Garcia Asencio MD Outside Machinist Supervisor: Signed 08-Nov-2015 Brain W/WO Contrast Result: Comments: See Note; NOTES: [facility] Imaging Services [address] [place] [address] Verdana 4d Brain W/WO Contrast MR#: [id number] Acct: [id number] Name: VIBHA FAUST Rep #: [id number] : 1970 F 44 From: Daylin Quintana MD PCP: Hillary Russell MD Status: REG CLI Study: Brain W/WO Contrast Date of Exam: 11/08/15 Exam# [id number] Ordering Dr: Aamir Russell MD STUDY: MRI BRAIN WITH AND WITHOUT CONTRAST REASON FOR EXAM: Female, 44 years old. Worsening memory loss. Migraine headaches. TECHNIQUE: Standardized multiplanar fat and water weighted pu lse sequences were obtained. 7 ml of Gadavist contrast material was administered intravenously for the contrast portion of the examination. COMPARISON: MRI dated August 25, 2012. FINDINGS: The cortical sulci and ventricles are normal in size for age. No acute infarction is demonstrated on the diffusion weighted series. A few small signal abnormalities are again seen in the bilateral cerebral white matter, without significant change. These may represent mild chronic small vessel ischemic changes. The basal ganglia and thalami appear normal. No lesi on is identified in the brainstem or cerebellum. No abnormal enhancement is identified. No mass lesion is seen. No abnormality is identified in the pituitary, optic chiasm, or pineal. The cavernous sinuses appear normal. Expected major vascular structures at the base of the brain show patency. The visualized internal auditory canals appear normal. No acute orbital abnormality is seen. The re is minimal mucosal thickening in the bilateral ethmoid sinus. No lesion is identified in the calvarium or skull base. IMPRESSION: No acute abnormality identi fied. Stable mild, somewhat nonspecific signal changes in the cerebral white matter. Electronically Signed: Daylin Alston MD at 16:49 EST , Service support , CC: Hillary Russell MD Outside Machinist Supervisor: Signed 08-Sep-2015 Kidney and Bladder Result: Comments: See Note; NOTES: [facility] Imaging Services [address] [place] [address] Verdana 4d Kidney and Bladder MR#: [id number] Acct: [id number] Name: LISA FAUST Rep #: [id number] : 1970 F 44 From: Bia Cain MD PCP: Hillary Russell MD Status: REG CLI Study: Kidney and Bladder Date of Exam: 09/08/15 Exam# [id number] Ordering Dr: Amy Gonzalez STUDY: RENAL ULTRASOUND - COMPLETE REASON FOR EXAM: Female, 44 years old. Right flank pain. Chronic kidney disease stage III TECHNIQUE: Ultrasound evaluation of the kidneys was performed with real -time and static peña-scale imaging. COMPARISON: None. FINDINGS: RIGHT KIDNEY: Normal location of the right kidney, which is normal in size. The right kidney measures 10.7x4.5x4.2 cm. There is a normal cortex of the right kidney. The renal cortex measures 1.6 cm. There is no right renal mass or cyst. There are no right renal calculi. There is no right hyd ronephrosis. DISTAL RIGHT URETER: There is non-visualization of the distal right ureter. There is no demonstrated right ureterovesical junction calculus. There is a visualized right ureteral jet. LEFT KIDNEY: Normal location of the left kidney, which is normal in size. The left kidney measures 10.4x4.7x4.7 cm. There is a normal cortex of the left kidney. The renal cortex measures 2.2 cm. There is no left renal mass or cyst. There are no left renal calculi. There is no left hydronephrosis. DISTAL LEFT URETER: There is non-visualization of the distal left ureter. There is no demonstrated left ureterovesical junction calculus. There is a visualized left ureteral jet. AORTA: There is no demonstrated aneurysm.. I.V.C.: The IVC is patent. BLADDER: The distended urinary bladder has a volume of 210 ml. The empty urinary bladder has a volume of 20 ml. There is a normal wall thickness of the distended urinary bladder. There is no demonstrated mass within the urinary bladder. There a re no demonstrated bladder calculi. IMPRESSION: Normal ultrasound of the kidneys and urinary bladder. Electronically Signed: Too Cain MD at 17 :16 EDT Tel , Service support [phone], CC: Amy Gonzalez; Hillary Russell MD Outside Machinist Supervisor: Signed 27-Jun-2014 Ligia Vasquez Digital & CAD Result: Comments: See Note; NOTES: [facility] Imaging Services [address] [place] [address] Breast Imaging Report MR#: [id number] Acct: [id number] Name: KRISTIN YOUNG Rep #: [id number] : 1970 F 43 From: Oni Leone MD PCP: Hillary Russell MD Status: REG CLI Exam# [id number] Ordering Dr: Hillary Russell MD MAMMOGRAPHY - BILATERAL SCREENING REASON FOR EXAM: Female, 43 years old. Routine annual screening examination. PERTINENT HISTORY: Non-contributory. TECHNIQUE: Digital examination. Mediolateral oblique (MLO) and craniocaudad (CC) views of both nieves sts were obtained. CAD: CAD was performed on this study. COMPARISON: Comparison is made with prior examination dated June 30, 2012. FINDINGS: The breast com position is composed of scattered areas of fibroglandular densities ranging from 25% to 50% of the total breast volume. There are no dominant masses or suspicious calcifications. No other significa nt abnormalities are identified. There has been no significant change since the prior study. IMPRESSION: Stable bilateral screening mammogram. Yearly follow-up r ecommended. (A) ASSESSMENT CATEGORY: BIRADS Category 2: Benign finding(s). A letter regarding these results will be sent to the patient by the facility within 30 days. Approximately 10% of breast cancers are not detected by mammography. A normal mammogram should not delay biopsy of a clinically suspicious abnormality. Electronically Signed: Oni moreira MD at 11:04 EDT Tel [phone], Service support [phone], CC: Hillary Russell MD Outside Machinist Supervisor: Signed 01-Feb-2014 Chest PA and Lateral Result: Comments: See Note; NOTES: [facility] Imaging Services [address] [place] [address] Radiology Report MR#: [id number] Acct: [id number] Name: KRISTIN YOUNG Rep #: [id number] : 1970 F 43 From: Winston Espinosa PCP: Hillary Russell MD Status: REG CLI Study: Chest PA and Lateral Date of Exam: 02/01/14 Exam# [id number] Ordering Dr: Hillary Russell MD STUDY: X-RA Y CHEST REASON FOR EXAM: Female, 43 years old. Cough TECHNIQUE: PA and lateral COMPARISON: 07/07/12 FINDINGS: The lungs are clear and expanded. There is no demonstrated pleural abnormality. Normal size heart. Normal mediastinum and ivy. Normal visualized pulmonary arteries. Normal visualized aortic arch and descending thoracic aorta. Normal visuali zed thoracic spine. Normal visualized ribs, clavicles, and shoulders. There is no demonstrated abnormality of the visualized soft tissue structures of the upper abdomen. IMPRESSION: Normal x-ray examination of the chest. Electronically Signed: Winston Espinosa M.D. at 7:18 EDT , Service support [phone], Fax CC: Hillary Russell MD Outside Machinist Supervisor: Signed 17-Dec-2013 Abdomen Complete Result: Comments: See Note; NOTES: [facility] Imaging Services [address] [place] [id number] Ultrasound Report MR#: [id number] Acct: [id number] Name: KRISTIN YOUNG Rep #: [id number] : 1970 F 43 From: Oni Leone MD PCP: Status: REG CLI Study: Abdomen Complete Date of Exam: 12/17/13 Exam# [id number] Ordering Dr: Amy Gonzalez STUDY: ABDOMINAL ULTRASOUND R CATHERINE FOR EXAM: Female, 43 years old. Abdominal pain. TECHNIQUE: Transabdominal ultrasound was performed with real-time and static lawson scale imaging. TECHNICAL QUALITY: Adequate. COMPARISON: Com parison is made with prior ultrasound dated November 06, 2009. FINDINGS: Liver: The liver measures 12.5 cm. There is normal echogenicity of the liver. The bile ducts are within normal limits. There is hepatic color flow. The direction of portal flow is hepatopetal. There is no demonstrated mass lesion. Gallbladder: Normal distended gallbladder. The gallbl adder wall measures 2.0 mm. There is a negative sonographic Maciel's sign. There is no pericholecystic fluid. There are no gallstones. Common Bile Duct (C.B.D.): The common bile duct measures 3.0 mm . Pancreas: Normal size of the head, body and tail of the pancreas. There is normal echogenicity of the pancreas. There is no demonstrated pancreatic mass or cyst. Spleen: Normal size of the splee n. The spleen measures 9.3 cm x 4.8 cm x 4.4 cm. Right Kidney: Normal size of the right kidney. The right kidney measures 10.8 cm. Normal renal cortex. The right cortex measures 1.2 cm. There is no demonstrated renal mass or cyst. There is no right hydronephrosis. Left Kidney: Normal size of the left kidney. The left kidney measures 10.2 cm. Normal renal cortex. The left cortex measures 1.4 cm . There is no demonstrated renal mass or cyst. There is no left hydronephrosis. Aorta: Unremarkable. I.V.C.: The IVC is patent. There is no ascites. IMPRESS ION: Normal abdominal ultrasound examination. Electronically Signed: Oni Leone M.D. at 14:04 EST , Service support [phone], CC: Amy Gonzalez Outside Machinist Supervisor: Signed 17-Dec-2013 Pelvic (Non ) Result: Comments: See Note; NOTES: [facility] Imaging Services [address] [place] [id number] Ultrasound Report MR#: [id number] Acct: [id number] Name: KRISTIN YOUNG Rep #: [id number] : 1970 F 43 From: Oni Leone MD PCP: Status: REG CLI Study: Pelvic (Non ) Date of Exam: 12/17/13 Exam# [id number] Ordering Dr: Amy Gonzalez STUDY: ULTRASOUND OF THE F EMALE PELVIS - COMPLETE REASON FOR EXAM: Female, 43 years old. LMP: The patient is status post hysterectomy. Abdominal pain. TECHNIQUE: Transabdominal TECHNICAL QUALITY: Adequate. COMPARISON: N one. FINDINGS: The patient is status post hysterectomy. The right ovary is visualized. The right ovary measures 2.8 cm x 2.4 cm x 1.4 cm. Follicles are seen wi thin the ovary. The largest measures 1.8 cm x 1.7 cm x 1.2 cm. There is no visualized right adnexal mass or complex lesion. There is normal arterial and normal venous vascularity. The left ovary is visualized. The left ovary measures 3.3 cm x 2.3 cm x 1.3 cm. Follicles are seen within the ovary. The largest measures 1.4 cm x 1.5 cm x 1.2 cm. There is no visualized left adnexal mass or complex l esion. There is normal arterial and normal venous vascularity. There is no fluid in the cul-de-sac. The distended urinary bladder had a volume of 564 ml at the time of the exam. IMPRESSION: Small follicles are seen in both ovaries. The patient is status post hysterectomy. Electronically Signed: Oni Leone M.D. at 14:06 EST Tel , Service support [phone], CC: Amy Gonzalez Outside Machinist Supervisor: Signed Family History Unknown Family Member Name Dates Details Brother 1 Comments: alcoholism, Type II diabetes Status: Active Father Comments: Type II diabetes, HTN, age 59 Status: Active First Degree Relatives Comments: Paternal uncle with Grave's disease (and his daughter had Grave's) Status: Active Maternal Grandfather Comments: prostate cancer Status: Active Mother Comments: bladder cancer heavy smoker. Status: Active up dated 06-25-12 Status: Inactive Social History Name Dates Details Alcohol Use Comments: rarely Status: Active Caffeine Use Comments: 1-2 cups qd Status: Active Current Work/Study Status Status: Active Exercise History Comments: no exercise with rhabdo Status: Active Living Situation Comments: , Lives with spouse Status: Active No Drug Use Status: Active Non Smoker/No Tobacco Use Status: Active Tobacco use: Never smoker. Status: Active updated 06-25-12 Status: Inactive Smoking Status Name Dates Details Never smoker Vital Signs Date Test Result Details :51 Temperature 97.8 f Comments: Method: Temporal Pulse 90 /min Comments: Pattern: Regular Respiration Rate 16 /min Comments: Pattern: Unlabored O2 SAT 98 % Comments: Room air BP Systolic 124 mm[Hg] Comments: Patient Position: Sitting; Cuff Location: Left Arm; Cuff Size: Standard BP Diastolic 78 mm[Hg] Comments: Patient Position: Sitting; Cuff Location: Left Arm; Cuff Size: Standard Weight 159 lb Height 65 in Body Mass Index Calculated 26.46 kg/m2 Body Surface Area Calculated 1.79 m2 :20 Temperature 97.1 f Pulse 83 /min Comments: Pattern: Regular Respiration Rate 17 /min Comments: Pattern: Unlabored O2 SAT 100 % Comments: Room air BP Systolic 124 mm[Hg] Comments: Patient Position: Sitting; Cuff Location: Left Arm; Cuff Size: Standard BP Diastolic 82 mm[Hg] Comments: Patient Position: Sitting; Cuff Location: Left Arm; Cuff Size: Standard Weight 160.25 lb Height 65 in Body Mass Index Calculated 26.67 kg/m2 Body Surface Area Calculated 1.8 m2 :29 Pulse 74 /min Comments: Pattern: Regular Respiration Rate 18 /min Comments: Pattern: Unlabored O2 SAT 97 % Comments: Room air BP Systolic 142 mm[Hg] Comments: Patient Position: Sitting; Cuff Location: Left Arm; Cuff Size: Large BP Diastolic 88 mm[Hg] Comments: Patient Position: Sitting; Cuff Location: Left Arm; Cuff Size: Large Weight 160.25 lb Height 65 in Body Mass Index Calculated 26.67 kg/m2 Body Surface Area Calculated 1.8 m2 :35 Pulse 91 /min Comments: Pattern: Regular Respiration Rate 18 /min Comments: Pattern: Unlabored O2 SAT 99 % Comments: Room air BP Systolic 138 mm[Hg] Comments: Patient Position: Sitting; Cuff Location: Left Arm; Cuff Size: Large BP Diastolic 88 mm[Hg] Comments: Patient Position: Sitting; Cuff Location: Left Arm; Cuff Size: Large Weight 159.375 lb Height 65 in Body Mass Index Calculated 26.52 kg/m2 Body Surface Area Calculated 1.8 m2 :38 Temperature 97.6 f Comments: Method: Tympanic Respiration Rate 18 /min Comments: Pattern: Unlabored O2 SAT 99 % Comments: Room air BP Systolic 120 mm[Hg] Comments: Patient Position: Sitting; Cuff Location: Left Arm; Cuff Size: Standard BP Diastolic 64 mm[Hg] Comments: Patient Position: Sitting; Cuff Location: Left Arm; Cuff Size: Standard Weight 154 lb Height 65 in Body Mass Index Calculated 25.63 kg/m2 Body Surface Area Calculated 1.77 m2 :43 Temperature 97.6 f Comments: Method: Temporal Pulse 80 /min Comments: Pattern: Regular Respiration Rate 16 /min Comments: Pattern: Unlabored O2 SAT 99 % Comments: Room air BP Systolic 122 mm[Hg] Comments: Patient Position: Sitting; Cuff Location: Left Arm; Cuff Size: Standard BP Diastolic 78 mm[Hg] Comments: Patient Position: Sitting; Cuff Location: Left Arm; Cuff Size: Standard Weight 154 lb Height 65 in Body Mass Index Calculated 25.63 kg/m2 Body Surface Area Calculated 1.77 m2 :15 Pulse 72 /min Comments: Pattern: Regular Respiration Rate 16 /min Comments: Pattern: Unlabored O2 SAT 99 % Comments: Room air BP Systolic 115 mm[Hg] Comments: Patient Position: Sitting; Cuff Location: Left Arm; Cuff Size: Standard BP Diastolic 68 mm[Hg] Comments: Patient Position: Sitting; Cuff Location: Left Arm; Cuff Size: Standard Weight 151 lb Height 65 in Body Mass Index Calculated 25.13 kg/m2 Body Surface Area Calculated 1.76 m2 :24 Pulse 79 /min Comments: Pattern: Regular Respiration Rate 18 /min Comments: Pattern: Unlabored O2 SAT 98 % Comments: Room air BP Systolic 122 mm[Hg] Comments: Patient Position: Sitting; Cuff Location: Left Arm; Cuff Size: Standard BP Diastolic 84 mm[Hg] Comments: Patient Position: Sitting; Cuff Location: Left Arm; Cuff Size: Standard Weight 151 lb Height 65 in Body Mass Index Calculated 25.13 kg/m2 Body Surface Area Calculated 1.76 m2 :18 Pulse 77 /min Comments: Pattern: Regular Respiration Rate 18 /min Comments: Pattern: Unlabored O2 SAT 99 % Comments: Room air BP Systolic 120 mm[Hg] Comments: Patient Position: Sitting; Cuff Location: Left Arm; Cuff Size: Large BP Diastolic 82 mm[Hg] Comments: Patient Position: Sitting; Cuff Location: Left Arm; Cuff Size: Large Weight 154.25 lb Height 65 in Body Mass Index Calculated 25.67 kg/m2 Body Surface Area Calculated 1.77 m2 :16 Temperature 97.2 f Comments: Method: Temporal Pulse 95 /min Comments: Pattern: Regular Respiration Rate 18 /min Comments: Pattern: Unlabored O2 SAT 95 % Comments: Room air BP Systolic 134 mm[Hg] Comments: Patient Position: Sitting; Cuff Location: Left Arm; Cuff Size: Large BP Diastolic 86 mm[Hg] Comments: Patient Position: Sitting; Cuff Location: Left Arm; Cuff Size: Large Weight 152 lb Height 65 in Body Mass Index Calculated 25.29 kg/m2 Body Surface Area Calculated 1.76 m2 :13 Pulse 68 /min Comments: Pattern: Regular Respiration Rate 18 /min Comments: Pattern: Unlabored O2 SAT 98 % Comments: Room air BP Systolic 124 mm[Hg] Comments: Patient Position: Sitting; Cuff Location: Left Arm; Cuff Size: Large BP Diastolic 84 mm[Hg] Comments: Patient Position: Sitting; Cuff Location: Left Arm; Cuff Size: Large Weight 152 lb Height 65 in Body Mass Index Calculated 25.29 kg/m2 Body Surface Area Calculated 1.76 m2 :21 Temperature 97.6 f Comments: Method: Temporal Pulse 70 /min Comments: Pattern: Regular Respiration Rate 18 /min Comments: Pattern: Unlabored O2 SAT 97 % Comments: Room air BP Systolic 114 mm[Hg] Comments: Patient Position: Sitting; Cuff Location: Left Arm; Cuff Size: Standard BP Diastolic 76 mm[Hg] Comments: Patient Position: Sitting; Cuff Location: Left Arm; Cuff Size: Standard Weight 164 lb Height 65 in Body Mass Index Calculated 27.29 kg/m2 Body Surface Area Calculated 1.82 m2 :12 Temperature 98.5 f Comments: Method: Oral Pulse 81 /min Comments: Pattern: Regular Respiration Rate 18 /min Comments: Pattern: Unlabored O2 SAT 98 % Comments: Room air BP Systolic 122 mm[Hg] Comments: Patient Position: Sitting; Cuff Location: Left Arm; Cuff Size: Standard BP Diastolic 82 mm[Hg] Comments: Patient Position: Sitting; Cuff Location: Left Arm; Cuff Size: Standard Weight 164 lb Height 65 in Body Mass Index Calculated 27.29 kg/m2 Body Surface Area Calculated 1.82 m2 :28 Temperature 97.6 f Comments: Method: Temporal Pulse 74 /min Comments: Pattern: Regular Respiration Rate 20 /min Comments: Pattern: Unlabored O2 SAT 98 % Comments: Room air BP Systolic 130 mm[Hg] Comments: Patient Position: Sitting; Cuff Location: Left Arm; Cuff Size: Standard BP Diastolic 86 mm[Hg] Comments: Patient Position: Sitting; Cuff Location: Left Arm; Cuff Size: Standard Weight 164 lb Height 65 in Body Mass Index Calculated 27.29 kg/m2 Body Surface Area Calculated 1.82 m2 :07 Temperature 97.6 f Comments: Method: Temporal Pulse 74 /min Comments: Pattern: Regular Respiration Rate 20 /min Comments: Pattern: Unlabored O2 SAT 97 % Comments: Room air BP Systolic 126 mm[Hg] Comments: Patient Position: Sitting; Cuff Location: Left Arm; Cuff Size: Standard BP Diastolic 80 mm[Hg] Comments: Patient Position: Sitting; Cuff Location: Left Arm; Cuff Size: Standard Weight 164 lb Height 65 in Body Mass Index Calculated 27.29 kg/m2 Body Surface Area Calculated 1.82 m2 :20 Temperature 98.3 f Comments: Method: Temporal Pulse 82 /min Comments: Pattern: Regular Respiration Rate 18 /min Comments: Pattern: Unlabored O2 SAT 95 % Comments: Room air BP Systolic 140 mm[Hg] Comments: Patient Position: Sitting; Cuff Location: Left Arm; Cuff Size: Standard BP Diastolic 82 mm[Hg] Comments: Patient Position: Sitting; Cuff Location: Left Arm; Cuff Size: Standard Weight 154 lb Height 65 in Body Mass Index Calculated 25.63 kg/m2 Body Surface Area Calculated 1.77 m2 :07 Temperature 97.2 f Pulse 85 /min Comments: Pattern: Regular Respiration Rate 18 /min Comments: Pattern: Unlabored O2 SAT 98 % Comments: Room air BP Systolic 118 mm[Hg] Comments: Patient Position: Sitting; Cuff Location: Left Arm; Cuff Size: Standard BP Diastolic 80 mm[Hg] Comments: Patient Position: Sitting; Cuff Location: Left Arm; Cuff Size: Standard Weight 152.375 lb Height 65 in Body Mass Index Calculated 25.36 kg/m2 Body Surface Area Calculated 1.76 m2 :58 Temperature 97 f Comments: Method: Temporal Pulse 84 /min Comments: Pattern: Regular Respiration Rate 18 /min Comments: Pattern: Unlabored O2 SAT 97 % Comments: Room air BP Systolic 136 mm[Hg] Comments: Patient Position: Sitting; Cuff Location: Left Arm; Cuff Size: Standard BP Diastolic 82 mm[Hg] Comments: Patient Position: Sitting; Cuff Location: Left Arm; Cuff Size: Standard Weight 156 lb Height 65 in Body Mass Index Calculated 25.96 kg/m2 Body Surface Area Calculated 1.78 m2 :08 Temperature 97.7 f Comments: Method: Temporal Pulse 88 /min Comments: Pattern: Regular Respiration Rate 16 /min Comments: Pattern: Unlabored O2 SAT 98 % Comments: Room air BP Systolic 124 mm[Hg] Comments: Patient Position: Sitting; Cuff Location: Left Arm; Cuff Size: Standard BP Diastolic 78 mm[Hg] Comments: Patient Position: Sitting; Cuff Location: Left Arm; Cuff Size: Standard Weight 159 lb Height 65 in Body Mass Index Calculated 26.46 kg/m2 Body Surface Area Calculated 1.79 m2 :07 Temperature 96.9 f Pulse 17 /min Comments: Pattern: Regular Respiration Rate 17 /min Comments: Pattern: Unlabored O2 SAT 98 % Comments: Room air BP Systolic 140 mm[Hg] Comments: Patient Position: Sitting; Cuff Location: Left Arm; Cuff Size: Standard BP Diastolic 70 mm[Hg] Comments: Patient Position: Sitting; Cuff Location: Left Arm; Cuff Size: Standard Weight 160.4 lb Height 65 in Body Mass Index Calculated 26.69 kg/m2 Body Surface Area Calculated 1.8 m2 :35 Temperature 97.2 f Comments: Method: Temporal Pulse 96 /min Comments: Pattern: Regular Respiration Rate 17 /min Comments: Pattern: Unlabored O2 SAT 97 % Comments: Room air BP Systolic 132 mm[Hg] Comments: Patient Position: Sitting; Cuff Location: Left Arm; Cuff Size: Standard BP Diastolic 74 mm[Hg] Comments: Patient Position: Sitting; Cuff Location: Left Arm; Cuff Size: Standard Weight 146 lb Height 65 in Body Mass Index Calculated 24.3 kg/m2 Body Surface Area Calculated 1.73 m2 :49 Temperature 98.4 f Comments: Method: Temporal Pulse 84 /min Comments: Pattern: Regular Respiration Rate 16 /min Comments: Pattern: Unlabored O2 SAT 96 % Comments: Room air BP Systolic 134 mm[Hg] Comments: Patient Position: Sitting; Cuff Location: Left Arm; Cuff Size: Standard BP Diastolic 82 mm[Hg] Comments: Patient Position: Sitting; Cuff Location: Left Arm; Cuff Size: Standard Weight 146 lb Height 65 in Body Mass Index Calculated 24.3 kg/m2 Body Surface Area Calculated 1.73 m2 :26 Temperature 98.6 f Comments: Method: Oral Pulse 88 /min Comments: Pattern: Regular Respiration Rate 16 /min O2 SAT 97 % Comments: Room air Weight 146 lb Height 65 in Body Mass Index Calculated 24.3 kg/m2 Body Surface Area Calculated 1.73 m2 :08 Temperature 98.2 f Comments: Method: Temporal Pulse 74 /min Comments: Pattern: Regular Respiration Rate 16 /min Comments: Pattern: Unlabored O2 SAT 98 % Comments: Room air BP Systolic 122 mm[Hg] Comments: Patient Position: Sitting; Cuff Location: Left Arm; Cuff Size: Standard BP Diastolic 74 mm[Hg] Comments: Patient Position: Sitting; Cuff Location: Left Arm; Cuff Size: Standard Weight 146 lb Height 65 in Body Mass Index Calculated 24.3 kg/m2 Body Surface Area Calculated 1.73 m2 :57 Temperature 98.6 f Comments: Method: Oral Pulse 94 /min Comments: Pattern: Regular Respiration Rate 18 /min O2 SAT 98 % Comments: Room air BP Systolic 126 mm[Hg] Comments: Patient Position: Sitting; Cuff Location: Left Arm; Cuff Size: Standard BP Diastolic 82 mm[Hg] Comments: Patient Position: Sitting; Cuff Location: Left Arm; Cuff Size: Standard Weight 142 lb Height 65 in Body Mass Index Calculated 23.63 kg/m2 Body Surface Area Calculated 1.71 m2 :07 Temperature 98.4 f Comments: Method: Oral Pulse 86 /min Comments: Pattern: Regular O2 SAT 98 % Comments: Room air BP Systolic 126 mm[Hg] Comments: Patient Position: Sitting; Cuff Location: Left Arm; Cuff Size: Standard BP Diastolic 76 mm[Hg] Comments: Patient Position: Sitting; Cuff Location: Left Arm; Cuff Size: Standard Weight 142 lb Height 65 in Body Mass Index Calculated 23.63 kg/m2 Body Surface Area Calculated 1.71 m2 :39 Temperature 97.6 f Comments: Method: Temporal Pulse 72 /min Comments: Pattern: Regular Respiration Rate 16 /min Comments: Pattern: Unlabored O2 SAT 97 % Comments: Room air BP Systolic 116 mm[Hg] Comments: Patient Position: Sitting; Cuff Location: Left Arm; Cuff Size: Standard BP Diastolic 80 mm[Hg] Comments: Patient Position: Sitting; Cuff Location: Left Arm; Cuff Size: Standard Weight 142 lb Height 65 in Body Mass Index Calculated 23.63 kg/m2 Body Surface Area Calculated 1.71 m2 :47 Temperature 98.3 f Comments: Method: Oral Pulse 102 /min Comments: Pattern: Regular Respiration Rate 16 /min O2 SAT 99 % Comments: Room air BP Systolic 140 mm[Hg] Comments: Patient Position: Sitting; Cuff Location: Left Arm; Cuff Size: Standard BP Diastolic 80 mm[Hg] Comments: Patient Position: Sitting; Cuff Location: Left Arm; Cuff Size: Standard Weight 142.4375 lb Height 65 in Body Mass Index Calculated 23.7 kg/m2 Body Surface Area Calculated 1.71 m2 :52 Temperature 97.7 f Comments: Method: Oral Pulse 90 /min Comments: Pattern: Regular Respiration Rate 16 /min O2 SAT 98 % Comments: Room air BP Systolic 138 mm[Hg] Comments: Patient Position: Sitting; Cuff Location: Left Arm; Cuff Size: Standard BP Diastolic 82 mm[Hg] Comments: Patient Position: Sitting; Cuff Location: Left Arm; Cuff Size: Standard Weight 142.4375 lb Height 65 in Body Mass Index Calculated 23.7 kg/m2 Body Surface Area Calculated 1.71 m2 :46 Temperature 98.4 f Comments: Method: Oral Pulse 78 /min Comments: Pattern: Regular Respiration Rate 16 /min O2 SAT 99 % Comments: Room air BP Systolic 118 mm[Hg] Comments: Patient Position: Sitting; Cuff Location: Left Arm; Cuff Size: Standard BP Diastolic 76 mm[Hg] Comments: Patient Position: Sitting; Cuff Location: Left Arm; Cuff Size: Standard Weight 155 lb Height 65 in Body Mass Index Calculated 25.79 kg/m2 Body Surface Area Calculated 1.78 m2 :44 Temperature 97.4 f Comments: Method: Temporal Pulse 82 /min Comments: Pattern: Regular Respiration Rate 18 /min Comments: Pattern: Unlabored O2 SAT 98 % Comments: Room air BP Systolic 130 mm[Hg] Comments: Patient Position: Sitting; Cuff Location: Left Arm; Cuff Size: Standard BP Diastolic 80 mm[Hg] Comments: Patient Position: Sitting; Cuff Location: Left Arm; Cuff Size: Standard Weight 155 lb Height 65 in Body Mass Index Calculated 25.79 kg/m2 Body Surface Area Calculated 1.78 m2 :31 Temperature 99.6 f Comments: Method: Oral Pulse 88 /min Comments: Pattern: Regular Respiration Rate 16 /min Comments: Pattern: Unlabored BP Systolic 102 mm[Hg] Comments: Patient Position: Sitting; Cuff Location: Left Arm; Cuff Size: Standard BP Diastolic 76 mm[Hg] Comments: Patient Position: Sitting; Cuff Location: Left Arm; Cuff Size: Standard Weight 155 lb Height 65 in Body Mass Index Calculated 25.79 kg/m2 Body Surface Area Calculated 1.78 m2 :42 Temperature 97.9 f Comments: Method: Oral Pulse 86 /min Comments: Pattern: Regular O2 SAT 96 % Comments: Room air BP Systolic 130 mm[Hg] Comments: Patient Position: Sitting; Cuff Location: Left Arm; Cuff Size: Standard BP Diastolic 72 mm[Hg] Comments: Patient Position: Sitting; Cuff Location: Left Arm; Cuff Size: Standard Weight 159 lb Height 65 in Body Mass Index Calculated 26.46 kg/m2 Body Surface Area Calculated 1.79 m2 :51 Temperature 97.8 f Comments: Method: Temporal Pulse 68 /min Comments: Pattern: Regular Respiration Rate 16 /min Comments: Pattern: Unlabored BP Systolic 136 mm[Hg] Comments: Patient Position: Sitting; Cuff Location: Left Arm; Cuff Size: Standard BP Diastolic 74 mm[Hg] Comments: Patient Position: Sitting; Cuff Location: Left Arm; Cuff Size: Standard Weight 159 lb Height 65 in Body Mass Index Calculated 26.46 kg/m2 Body Surface Area Calculated 1.79 m2 :25 Weight 159 lb Height 65 in Body Mass Index Calculated 26.46 kg/m2 Body Surface Area Calculated 1.79 m2 :32 Temperature 98.6 f Comments: Method: Oral Pulse 84 /min Comments: Pattern: Regular Respiration Rate 16 /min BP Systolic 138 mm[Hg] Comments: Patient Position: Sitting; Cuff Location: Left Arm; Cuff Size: Standard BP Diastolic 82 mm[Hg] Comments: Patient Position: Sitting; Cuff Location: Left Arm; Cuff Size: Standard Weight 159 lb Height 65 in Body Mass Index Calculated 26.46 kg/m2 Body Surface Area Calculated 1.79 m2 :48 Temperature 97 f Comments: Method: Oral Pulse 98 /min Comments: Pattern: Regular Respiration Rate 16 /min Comments: Pattern: Unlabored O2 SAT 99 % Comments: Room air BP Systolic 132 mm[Hg] Comments: Patient Position: Sitting; Cuff Location: Left Arm; Cuff Size: Standard BP Diastolic 80 mm[Hg] Comments: Patient Position: Sitting; Cuff Location: Left Arm; Cuff Size: Standard Weight 159 lb Height 65 in Body Mass Index Calculated 26.46 kg/m2 Body Surface Area Calculated 1.79 m2 :56 Pulse 72 /min Comments: Pattern: Regular BP Systolic 116 mm[Hg] Comments: Patient Position: Supine; Cuff Location: Right Arm; Cuff Size: Standard BP Diastolic 76 mm[Hg] Comments: Patient Position: Supine; Cuff Location: Right Arm; Cuff Size: Standard :22 Temperature 98.2 f Comments: Method: Oral Pulse 84 /min Comments: Pattern: Regular Respiration Rate 20 /min O2 SAT 99 % Comments: Room air BP Systolic 148 mm[Hg] Comments: Patient Position: Sitting; Cuff Location: Left Arm; Cuff Size: Standard BP Diastolic 102 mm[Hg] Comments: Patient Position: Sitting; Cuff Location: Left Arm; Cuff Size: Standard Weight 153 lb Height 65 in Body Mass Index Calculated 25.46 kg/m2 Body Surface Area Calculated 1.77 m2 :55 Temperature 98.7 f Comments: Method: Oral Pulse 60 /min Comments: Pattern: Regular Respiration Rate 16 /min Comments: Pattern: Unlabored BP Systolic 122 mm[Hg] Comments: Patient Position: Sitting; Cuff Location: Left Arm; Cuff Size: Standard BP Diastolic 80 mm[Hg] Comments: Patient Position: Sitting; Cuff Location: Left Arm; Cuff Size: Standard Weight 153 lb Height 65 in Body Mass Index Calculated 25.46 kg/m2 Body Surface Area Calculated 1.77 m2 :05 Temperature 98.3 f Comments: Method: Oral Pulse 72 /min Comments: Pattern: Regular Respiration Rate 16 /min Comments: Pattern: Unlabored BP Systolic 126 mm[Hg] Comments: Patient Position: Sitting; Cuff Location: Left Arm; Cuff Size: Standard BP Diastolic 78 mm[Hg] Comments: Patient Position: Sitting; Cuff Location: Left Arm; Cuff Size: Standard Weight 148 lb Height 65 in Body Mass Index Calculated 24.63 kg/m2 Body Surface Area Calculated 1.74 m2 :19 Temperature 97.8 f Comments: Method: Oral Pulse 70 /min Comments: Pattern: Regular Respiration Rate 18 /min Comments: Pattern: Unlabored BP Systolic 110 mm[Hg] Comments: Patient Position: Sitting; Cuff Location: Left Arm; Cuff Size: Standard BP Diastolic 70 mm[Hg] Comments: Patient Position: Sitting; Cuff Location: Left Arm; Cuff Size: Standard Weight 152 lb Height 65 in Body Mass Index Calculated 25.29 kg/m2 Body Surface Area Calculated 1.76 m2 :37 Temperature 98.5 f Comments: Method: Oral Pulse 72 /min Comments: Pattern: Regular Respiration Rate 18 /min Comments: Pattern: Unlabored O2 SAT 98 % Comments: Room air BP Systolic 108 mm[Hg] Comments: Patient Position: Sitting; Cuff Location: Left Arm; Cuff Size: Standard BP Diastolic 74 mm[Hg] Comments: Patient Position: Sitting; Cuff Location: Left Arm; Cuff Size: Standard Weight 154 lb Height 65 in Body Mass Index Calculated 25.63 kg/m2 Body Surface Area Calculated 1.77 m2 :33 Temperature 98.7 f Comments: Method: Oral Pulse 88 /min Comments: Pattern: Regular Respiration Rate 18 /min O2 SAT 98 % Comments: Room air BP Systolic 110 mm[Hg] Comments: Patient Position: Sitting; Cuff Location: Left Arm; Cuff Size: Standard BP Diastolic 70 mm[Hg] Comments: Patient Position: Sitting; Cuff Location: Left Arm; Cuff Size: Standard Weight 145.0563 lb :54 Temperature 97.9 f Comments: Method: Oral Pulse 68 /min Comments: Pattern: Regular Respiration Rate 18 /min Comments: Pattern: Unlabored BP Systolic 118 mm[Hg] Comments: Patient Position: Sitting; Cuff Location: Left Arm; Cuff Size: Standard BP Diastolic 68 mm[Hg] Comments: Patient Position: Sitting; Cuff Location: Left Arm; Cuff Size: Standard Weight 145.0563 lb :53 Pulse 84 /min Comments: Pattern: Regular Respiration Rate 18 /min Comments: Pattern: Unlabored BP Systolic 122 mm[Hg] Comments: Patient Position: Sitting; Cuff Location: Left Arm; Cuff Size: Standard BP Diastolic 70 mm[Hg] Comments: Patient Position: Sitting; Cuff Location: Left Arm; Cuff Size: Standard Weight 141.375 lb Height 65 in Body Mass Index Calculated 23.53 kg/m2 Body Surface Area Calculated 1.71 m2 :14 Temperature 97.8 f Comments: Method: Oral Pulse 78 /min Comments: Pattern: Regular Respiration Rate 18 /min O2 SAT 99 % Comments: Room air BP Systolic 120 mm[Hg] Comments: Patient Position: Sitting; Cuff Location: Left Arm; Cuff Size: Standard BP Diastolic 78 mm[Hg] Comments: Patient Position: Sitting; Cuff Location: Left Arm; Cuff Size: Standard Weight 141.375 lb Height 65 in Body Mass Index Calculated 23.53 kg/m2 Body Surface Area Calculated 1.71 m2 :24 Temperature 98 f Comments: Method: Oral Pulse 60 /min Comments: Pattern: Regular Respiration Rate 20 /min Comments: Pattern: Unlabored BP Systolic 120 mm[Hg] Comments: Patient Position: Sitting; Cuff Location: Left Arm; Cuff Size: Large BP Diastolic 78 mm[Hg] Comments: Patient Position: Sitting; Cuff Location: Left Arm; Cuff Size: Large Weight 141.375 lb Height 65 in Body Mass Index Calculated 23.53 kg/m2 Body Surface Area Calculated 1.71 m2 :11 Temperature 99.8 f Comments: Method: Oral Pulse 88 /min Comments: Pattern: Regular Respiration Rate 16 /min Comments: Pattern: Unlabored BP Systolic 122 mm[Hg] Comments: Patient Position: Sitting; Cuff Location: Left Arm; Cuff Size: Standard BP Diastolic 74 mm[Hg] Comments: Patient Position: Sitting; Cuff Location: Left Arm; Cuff Size: Standard Weight 137.5625 lb :43 Temperature 98.8 f Comments: Method: Oral Pulse 86 /min Comments: Pattern: Regular Respiration Rate 16 /min Comments: Pattern: Unlabored O2 SAT 98 % Comments: Room air BP Systolic 118 mm[Hg] Comments: Patient Position: Sitting; Cuff Location: Left Arm; Cuff Size: Standard BP Diastolic 76 mm[Hg] Comments: Patient Position: Sitting; Cuff Location: Left Arm; Cuff Size: Standard Weight 127 lb Height 63.75 in Body Mass Index Calculated 21.97 kg/m2 Body Surface Area Calculated 1.61 m2 :16 Temperature 98.4 f Comments: Method: Oral Pulse 80 /min Comments: Pattern: Regular Respiration Rate 20 /min Comments: Pattern: Unlabored BP Systolic 120 mm[Hg] Comments: Patient Position: Sitting; Cuff Location: Left Arm; Cuff Size: Large BP Diastolic 82 mm[Hg] Comments: Patient Position: Sitting; Cuff Location: Left Arm; Cuff Size: Large Weight 127 lb Height 63.75 in Body Mass Index Calculated 21.97 kg/m2 Body Surface Area Calculated 1.61 m2 :04 Temperature 98.7 f Comments: Method: Oral Pulse 80 /min Comments: Pattern: Regular Respiration Rate 16 /min Comments: Pattern: Unlabored BP Systolic 110 mm[Hg] Comments: Patient Position: Sitting; Cuff Location: Left Arm; Cuff Size: Standard BP Diastolic 78 mm[Hg] Comments: Patient Position: Sitting; Cuff Location: Left Arm; Cuff Size: Standard Weight 124 lb Height 63.75 in Body Mass Index Calculated 21.45 kg/m2 Body Surface Area Calculated 1.59 m2 :45 Temperature 98.5 f Comments: Method: Oral Pulse 84 /min Comments: Pattern: Regular Respiration Rate 14 /min Comments: Pattern: Unlabored BP Systolic 120 mm[Hg] Comments: Patient Position: Sitting; Cuff Location: Left Arm; Cuff Size: Standard BP Diastolic 70 mm[Hg] Comments: Patient Position: Sitting; Cuff Location: Left Arm; Cuff Size: Standard Weight 128 lb Height 63.75 in Body Mass Index Calculated 22.14 kg/m2 Body Surface Area Calculated 1.61 m2 :56 Temperature 98.1 f Comments: Method: Oral Pulse 92 /min Comments: Pattern: Regular Respiration Rate 18 /min Comments: Pattern: Unlabored O2 SAT 99 % Comments: Room air BP Systolic 108 mm[Hg] Comments: Patient Position: Sitting; Cuff Location: Left Arm; Cuff Size: Standard BP Diastolic 74 mm[Hg] Comments: Patient Position: Sitting; Cuff Location: Left Arm; Cuff Size: Standard Weight 133 lb Height 63.75 in Body Mass Index Calculated 23.01 kg/m2 Body Surface Area Calculated 1.64 m2 :40 Temperature 97.6 f Comments: Method: Oral Pulse 78 /min Comments: Pattern: Regular Respiration Rate 18 /min Comments: Pattern: Unlabored BP Systolic 100 mm[Hg] Comments: Patient Position: Sitting; Cuff Location: Left Arm; Cuff Size: Standard BP Diastolic 76 mm[Hg] Comments: Patient Position: Sitting; Cuff Location: Left Arm; Cuff Size: Standard Weight 129 lb Height 63.75 in Body Mass Index Calculated 22.32 kg/m2 Body Surface Area Calculated 1.62 m2 :01 Temperature 98.2 f Comments: Method: Oral Pulse 64 /min Comments: Pattern: Regular Respiration Rate 18 /min Comments: Pattern: Unlabored BP Systolic 108 mm[Hg] Comments: Patient Position: Sitting; Cuff Location: Left Arm; Cuff Size: Standard BP Diastolic 74 mm[Hg] Comments: Patient Position: Sitting; Cuff Location: Left Arm; Cuff Size: Standard Weight 134 lb Height 63.75 in Body Mass Index Calculated 23.18 kg/m2 Body Surface Area Calculated 1.65 m2 Results Date Description Value Details [id number] Comprehensive Metabolic Profil Comments: [facility] [address] [place], [place], [address] GAP 9 (Normal) Range: 5-15 CO2 27.0 mmol/L (Normal) Range: 21.0-32.0 CL 106 mmol/L (Normal) Range: 98-107 K 3.5 mmol/L (Normal) Range: 3.5-5.1 NA 142 mmol/L (Normal) Range: 136-145 T BILI 0.50 mg/dL (Normal) Range: 0.20-1.00 ALT 21 U/L (Normal) Range: 13-56 ALK P 65 U/L (Normal) Range: 45-117 AST 20 U/L (Normal) Range: 15-37 CA 8.5 mg/dL (Normal) Range: 8.5-10.1 A/G 1.1 {RATIO} (Normal) Range: 0.9-2.4 GLOB 3.3 g/dL (Normal) Range: 2.2-4.2 ALB 3.5 g/dL (Normal) Range: 3.2-5.0 T PROT 6.8 g/dL (Normal) Range: 6.4-8.2 BUN/CRE 14.2 {RATIO} (Normal) Range: 10-20 EST GFR - AA 58 mL/min (Abnormal) Comments: GFR Calc EST GFR 48 mL/min (Abnormal) Comments: Non- GFR Calc CREAT,SERUM 1.27 mg/dL (Abnormal) Range: 0.55-1.02 Comments: The validity of the calculated GFR AND GFRAA in patients over70 years has not been determined. Clinical correlation isessential. BUN 18 mg/dL (Normal) Range: 7-18 GLU 85 mg/dL (Normal) Range: 74-106 Comments: Please note revised GLUCOSE reference range iewmcnflf23/02/2018. [id number]-[id number]:19 Anti-Centromere B Ab Comments: [facility] (refer to report for specific site)refer to report for address and phone number ANTI-CENT B <0.2 {AI} (Normal) Range: 0.0-0.9 :19 Anti-dsDNA Ab Comments: [facility] (refer to report for specific site)refer to report for address and phone number dsDNA AB <1 {IU/mL} (Normal) Range: 0-9 Comments: Negative <5 Equivocal 5 - 9 Positive >9 :19 Anti-Kary Comments: [facility] (refer to report for specific site)refer to report for address and phone number ANTI-KARY <0.2 {AI} (Normal) Range: 0.0-0.9 :19 Lnme-Fdvbhrncxtj-69 AB Comments: [facility] (refer to report for specific site)refer to report for address and phone number ANTISCLER <0.2 {AI} (Normal) Range: 0.0-0.9 :19 Antiextractable Nug Ag Comments: [facility] (refer to report for specific site)refer to report for address and phone number BRICENO Ab <0.2 {AI} (Normal) Range: 0.0-0.9 DIESEL BUS MECH[employer]IC Ab <0.2 {AI} (Normal) Range: 0.0-0.9 :19 ANTINUCLEAR ANTIBODIES DIRECT Comments: [facility] (refer to report for specific site)refer to report for address and phone number MONIQUE-DIRECT Negative (Normal) Comments: Performed at: - [address] [id number] Director: West Spivey PhD, Phone: [phone] :19 CBC W/Diff, Automated Comments: [facility] [address] [place], [address] Absolute Lymph 1.12 {X10_3/ul} (Normal) Range: 0.83-4.51 Absolute Neut 4.5 {X10_3/uL} (Normal) Range: 2.0-7.7 IM GRAN % 0.600 % (Normal) Range: 0.0-0.9 Comments: IG% - Immature Granulocytes (promyelocytes, myelocytes andmetamyelocytes) > 1% indicates that a LEFT SHIFT is Present. BASO% 0.3 % (Normal) Range: 0-1 EO% 1.1 % (Normal) Range: 0-5 MONO% 8.4 % (Normal) Range: 0-10 LY% 17.7 % (Abnormal) Range: 19-41 NEUT% 71.9 % (Abnormal) Range: 47-70 MPV 10.1 fL (Normal) Range: 6.2-12.0 PLT 248 K/mm3 (Normal) Range: 150-450 RDW SD 43.6 fL (Normal) Range: 35.1-43.9 RDW CV 12.6 % (Normal) Range: 11.6-14.6 MCHC 33.1 {g/gl} (Normal) Range: 32-36 MCH 31.7 pg (Normal) Range: 27.0-32.0 MCV 95.9 fL (Normal) Range: 81-99 HCT 42.0 % (Normal) Range: 37-47 HGB 13.9 g/dL (Normal) Range: 12.0-15.0 RBC 4.38 {M/mm3} (Normal) Range: 4.2-5.4 WBC 6.3 K/mm3 (Normal) Range: 4.4-11.0 9-Gup-209281:19 CCP IgG Antibodies Comments: [facility] (refer to report for specific site)refer to report for address and phone number ANTI-CCP [id number] 6 {units} (Normal) Range: 0-19 Comments: Negative <20 Weak positive 20 - 39 Moderate positive 40 - 59 Strong positive >59 8-Mgm-641034:19 Complement C3 Comments: [facility] (refer to report for specific site)refer to report for address and phone number COMP C3 128 mg/dL (Normal) Range: 82-167 3-Esj-961429:19 Complement C4 Comments: [facility] (refer to report for specific site)refer to report for address and phone number COMP C4 28 mg/dL (Normal) Range: 14-44 6-Sjo-951135:19 Comprehensive Metabolic Profil Comments: [facility] [address] [place], [place], [id number] GAP 8 (Normal) Range: 5-15 CO2 26.0 mmol/L (Normal) Range: 21.0-32.0 CL 107 mmol/L (Normal) Range: 98-107 K 3.7 mmol/L (Normal) Range: 3.5-5.1 NA 141 mmol/L (Normal) Range: 136-145 T BILI 0.40 mg/dL (Normal) Range: 0.20-1.00 ALT 22 U/L (Normal) Range: 13-56 ALK P 64 U/L (Normal) Range: 45-117 AST 15 U/L (Normal) Range: 15-37 CA 8.5 mg/dL (Normal) Range: 8.5-10.1 A/G 1.1 {RATIO} (Normal) Range: 0.9-2.4 GLOB 3.5 g/dL (Normal) Range: 2.2-4.2 ALB 3.7 g/dL (Normal) Range: 3.2-5.0 T PROT 7.2 g/dL (Normal) Range: 6.4-8.2 BUN/CRE 11.8 {RATIO} (Normal) Range: 10-20 EST GFR - AA 62 mL/min (Normal) Comments: GFR Calc EST GFR 52 mL/min (Abnormal) Comments: Non- GFR Calc CREAT,SERUM 1.19 mg/dL (Abnormal) Range: 0.55-1.02 Comments: The validity of the calculated GFR AND GFRAA in patients over70 years has not been determined. Clinical correlation isessential. BUN 14 mg/dL (Normal) Range: 7-18 GLU 79 mg/dL (Normal) Range: 74-106 Comments: Please note revised GLUCOSE reference range jmrzyhslr05/02/2018. 0-Uzk-758454:19 CRP Comments: [facility] [address] [place], [place], [id number] C-REACTIVE PROT < 2.90 mg/L (Normal) Range: 0.0-3.0 Comments: C-Reactive Protein (CRP) provides useful information for thediagnosis, therapy and monitoring of inflammatory processesand associated diseases. For the evaluation of Relative Riskfor Cardiovascular Dise ase, a High Sensitivity CRP (HSCRP)should be ordered. :19 Erythrocyte Sed Rate Comments: [facility] [address] [place], [address] SED RATE 2 mm/h (Normal) Range: 0-20 :19 Hep B Surface Antibodies Comments: [facility] (refer to report for specific site)refer to report for address and phone number Hep B Christopher AB Reactive (Normal) Comments: Non Reactive: Inconsistent with immunity, less than 10 mIU/mL Reactive: Consistent with immunity, greater than 9.9 mIU/mL :19 Hepatitis B Surface Ag Comments: [facility] (refer to report for specific site)refer to report for address and phone number HB SURF AG Negative (Normal) Comments: Performed at: - [address] [id number] Director: West Spivey PhD, Phone: [phone] at: [facility] [address] [id number] Director: Juan Clifton PhD, Phone: [phone] at: - Lab[address] [id number] Director: Iesha Ambrocio MD, Phone: [phone] :19 Hepatitis C Antibodies Comments: [facility] (refer to report for specific site)refer to report for address and phone number HEP C AB <0.1 {s/co_ratio} Range: 0.0-0.9 (Normal) Comments: Negative: < 0.8 Indeterminate: 0.8 - 0.9 Positive: > 0.9 The CDC recommends that a positive HCV antibody result be followed up with a HCV Nucleic Acid Amplification test (065811). : HLA B27 Negative (Normal) Comments: [facility] (refer to report for specific site)refer to report for address and phone number 19 Comments: HLA-B*27 EmncqofwC71 allele interpretation for all loci based on IMGT/HLAdatabase version 3.31.0This test was developed and its performance characteristicsdetermined by [employer]. It has not been cleared or approvedby the Food and Drug Administration.[facility] Lab CLIA ID Number [id number] test was performed using PCR (Polymerase ChainReaction)/SSOP (Sequence Specific Oligonucleotide Probes)technique. S BT (Sequence Based Typing) and/or SSP(Sequence Specific Primers) may be used as supplementalmethods when necessary. Please contact [facility] CustomerService at if you have any questions. Director of [facility] Laboratory Dr Juan Clifton, PhD 6-Trx-862025:19 Protein+Creatinine Ratio,Urine Comments: [facility] [address] [place], [address] PROT:CRE RATIO 234 {mg/g_CRE} (Abnormal) Range: 0-200 PROTEIN,UR.RAN. 11.5 mg/dL (Normal) UR CREAT 49.10 mg/dL (Normal) :19 Rheumatoid Factor Comments: [facility] [address] [place], [address] RHEUMATOID FAC < 10.0 {IU/mL} (Normal) 6-Mjf-576800:19 Sjogren's Antibodies A/B Comments: [facility] (refer to report for specific site)refer to report for address and phone number Anti-SS-B < 0.2 {AI} (Normal) Range: 0.0-0.9 Anti-SS-A < 0.2 {AI} (Normal) Range: 0.0-0.9 :19 Urinalysis, Routine (Dipstick) Comments: How was Urine Obtained? [facility] [address] [facility] [place], [address] LEUK ESTERASE Negative /ul (Normal) OCCULT BLOOD-UR 10 /ul (Abnormal) NITRITE UR Negative (Normal) UROBILI Normal mg/dL (Normal) PROT DIPSTX Negative mg/dL (Normal) pH UR 6.5 (Normal) Range: 5.0 - 8.0 SP.GR. DIPSTX 1.010 (Normal) Range: 1.002-1.030 KETONE UR Negative mg/dL (Normal) BILIRUBIN URINE Negative mg/dL (Normal) GLUCOSE, UR Normal mg/dL (Normal) CLARITY Clear (Normal) COLOR Yellow (Normal) :44 Protein Total, Qn, 24-Hr Comments: PATIENT NOT FASTINGPERFORMED BY: [address] [id number] Information: START 07/14/18@705AM Urine Prot,24hr calculated 71 {mg/24_hr} (Normal) Range: 30-150 Protein,Total,Urine 4.2 mg/dL (Normal) :38 Microscopic Examination Comments: PATIENT WAS FASTINGPERFORMED BY: [employer] [id number] BY: [employer]ise DevicesAnnette V[place] [id number] [facility] [id number] Bacteria Few (Normal) Epithelial Cells (non renal) 0-10 {/hpf} (Normal) Range: 0 - 10 RBC 0-2 {/hpf} (Normal) Range: 0 - 2 WBC 0-5 {/hpf} (Normal) Range: 0 - 5 :38 T4, FREE (THYROXINE) Comments: PATIENT WAS FASTINGPERFORMED BY: [employer] [id number] BY: [employer] DevicesAn[place]te [place] [id number] [facility] [id number] (21469) T4,Free(Direct) 1.45 ng/dL (Normal) Range: 0.82-1.77 :38 T3, FREE (TRIDOTHYRONINE) Comments: PATIENT WAS FASTINGPERFORMED BY: [employer] [id number] BY: [facility] DevicesSpecialty Hospital at MonmouthAtcepu[address] [place] [address] [id number] (40283) Triiodothyronine (T3), Free 2.6 pg/mL (Normal) Range: 2.0-4.4 :38 TSH (65028) Comments: PATIENT WAS FASTINGPERFORMED BY: [employer] [id number] BY: [facility] [id number] TSH 3.910 {uIU/mL} (Normal) Range: 0.450-4.500 97-Ghx-42969:38 URINALYSIS, W/ MICRO Comments: PATIENT WAS FASTINGPERFORMED BY: [address] [id number] BY: [address] [id number] ([address]) Microscopic Examination See below: (Normal) Comments: Microscopic was indicated and was performed. Microscopic Examination MICRON (Normal) Comments: Microscopic follows if indicated. Nitrite, Urine Negative (Normal) Urobilinogen,Semi-Qn 0.2 mg/dL (Normal) Range: 0.2-1.0 Bilirubin Negative (Normal) Occult Blood Negative (Normal) Ketones Negative (Normal) Glucose Negative (Normal) Protein Negative (Normal) WBC Esterase Negative (Normal) Appearance Clear (Normal) Urine-Color Yellow (Normal) pH 7.0 (Normal) Range: 5.0-7.5 Specific Edmonds 1.011 (Normal) Range: 1.005-1.030 :38 MICROALBUMIN: CREATININE Comments: PATIENT WAS FASTINGPERFORMED BY: [employer] [id number] BY: [facility] [id number] RATIO (41297) AND (55014) Alb/Creat Ratio 11.9 {mg/g_creat} (Normal) Range: 0.0-30.0 Albumin, Urine 7.4 ug/mL (Normal) Creatinine, Urine 62.1 mg/dL (Normal) 84-Rdu-68536:38 METABOLIC PANEL, Comments: PATIENT WAS FASTINGPERFORMED BY: [address] [id number] BY: [facility] [id number] COMPREHENSIVE (35247) ALT (SGPT) 14 [iU]/L (Normal) Range: 0-32 AST (SGOT) 18 [iU]/L (Normal) Range: 0-40 Alkaline Phosphatase 60 [iU]/L (Normal) Range: 39-117 Bilirubin, Total 0.4 mg/dL (Normal) Range: 0.0-1.2 A/G Ratio 1.9 (Normal) Range: 1.2-2.2 Globulin, Total 2.2 g/dL (Normal) Range: 1.5-4.5 Albumin 4.2 g/dL (Normal) Range: 3.5-5.5 Protein, Total 6.4 g/dL (Normal) Range: 6.0-8.5 Calcium 9.1 mg/dL (Normal) Range: 8.7-10.2 Carbon Dioxide, Total 24 mmol/L (Normal) Range: 20-29 Chloride 103 mmol/L (Normal) Range: 96-106 Potassium 4.2 mmol/L (Normal) Range: 3.5-5.2 Sodium 140 mmol/L (Normal) Range: 134-144 BUN/Creatinine Ratio 7 (Abnormal) Range: 9-23 eGFR If Africn Am 56 mL/min/1.73 (Abnormal) eGFR If NonAfricn Am 49 mL/min/1.73 (Abnormal) Creatinine 1.30 mg/dL (Abnormal) Range: 0.57-1.00 BUN 9 mg/dL (Normal) Range: 6-24 Glucose 83 mg/dL (Normal) Range: 65-99 73-Ufv-74570:38 LIPOPROTEIN, BLD, BY NMR Comments: PATIENT WAS FASTINGPERFORMED BY: BN [facility] [address] [id number] BY: [facility] [address] [facility] [id number] (01169) LP-IR Score <25 (Normal) Comments: INSULIN RESISTANCE MARKER <--Insulin Sensitive Insulin Resistant--> Percentile in Reference PopulationInsulin Resistance ScoreLP-IR Score Low 25th 50th 75th High <27 27 45 63 >63LP-IR Score is inaccurate if patient is non-fasting. .The LP-IR score is a laboratory developed i [facility] that has beenassociated with insulin resistance and diabetes risk and should beused as one component of a physician's clinical assessment. TheLP-IR score listed above has not been cleared by the [place] Food andDrug Administration. LDL Size 22.0 nm (Normal) Comments: INTERPRETATIVE INFORMATION PARTICLE CONCENTRATION AND SIZE <--Lower CVD Risk Highe r CVD Risk--> LDL AND HDL PARTICLES Percentile in Reference Population HDL-P (total) High 75th 50th 25th Low >34.9 34.9 30.5 26.7 <26.7 . Small LDL-P Low 25th 50th 75th High <117 117 527 839 >839 . LDL Size <-Large (Pattern A)-> <-Small (Pattern B)-> 23.0 20.6 20.5 19.0 Small LDL-P and LDL Size are associated with CVD risk, but not afterLDL-P is taken into account. .These assays were developed and their performance characteristicsdetermined by [employer]. These assays have not been cleared by [place] Food and Drug Administration. The clinical utility of theselaboratory values have not been fully established. Small LDL-P 283 nmol/L (Normal) HDL-P (Total) 41.1 umol/L (Normal) Cholesterol, Total 237 mg/dL (Abnormal) Range: 100-199 Triglycerides 126 mg/dL (Normal) Range: 0-149 HDL-C 71 mg/dL (Normal) LDL-C 141 mg/dL (Abnormal) Range: 0-99 Comments: . Optimal < 100 Above optimal 100 - 129 Borderline 1 30 - 159 High 160 - 189 Very high > 189 .LDL-C is inaccurate if patient is non-fasting. LDL-P 1511 nmol/L (Abnormal) Comments: Low < 1000 Moderate 1000 - 1299 Borderline-High 1300 - 1599 High 1600 - 2000 Very High > 2000 61-Qpm-17271:38 CBC W/AUTO DIFF WBC Comments: PATIENT WAS FASTINGPERFORMED BY: LabJason [place] [address] [facility] [id number] BY: [facility] [id number] (69340) Immature Grans (Abs) 0.0 {x10E3/uL} (Normal) Range: 0.0-0.1 Immature Granulocytes 0 % (Normal) Baso (Absolute) 0.0 {x10E3/uL} (Normal) Range: 0.0-0.2 Eos (Absolute) 0.1 {x10E3/uL} (Normal) Range: 0.0-0.4 Monocytes(Absolute) 0.7 {x10E3/uL} (Normal) Range: 0.1-0.9 Lymphs (Absolute) 1.5 {x10E3/uL} (Normal) Range: 0.7-3.1 Neutrophils (Absolute) 5.8 {x10E3/uL} (Normal) Range: 1.4-7.0 Basos 0 % (Normal) Eos 1 % (Normal) Monocytes 8 % (Normal) Lymphs 18 % (Normal) Neutrophils 73 % (Normal) Platelets 271 {x10E3/uL} (Normal) Range: 150-379 RDW 13.9 % (Normal) Range: 12.3-15.4 MCHC 32.9 g/dL (Normal) Range: 31.5-35.7 MCH 31.9 pg (Normal) Range: 26.6-33.0 MCV 97 fL (Normal) Range: 79-97 Hematocrit 44.7 % (Normal) Range: 34.0-46.6 Hemoglobin 14.7 g/dL (Normal) Range: 11.1-15.9 RBC 4.61 {x10E6/uL} (Normal) Range: 3.77-5.28 WBC 8.2 {x10E3/uL} (Normal) Range: 3.4-10.8 70-Wzu-950927:56 URINE EDWARD CULTURE-SHANAE COL Comments: PATIENT NOT FASTINGPERFORMED BY: [facility] [id number] Information: SRC:UC COUNT (05964) Result 1 MUG (Normal) Comments: Mixed urogenital flora1,000 Colonies/mL Urine Culture,Comprehensive Final report (Normal) 11-Kwa-[id number]:11 Urinalysis, Office (75011) UA - LEUKOCYTE ESTERASE Negative (Normal) UA - NITRITE Negative (Normal) URINE UROBILINGN SHANAE TIMED Normal mg/dL (Normal) UA - PROTEIN Negative mg/dL (Normal) UA - PH 6 (Abnormal) UA - BLOOD Hemolyzed Trace (Normal) UA - SPECIFIC GRAVITY 1.030 (Abnormal) UA - KETONES Negative mg/dL (Normal) UA - BILIRUBIN Negative (Normal) UA - GLUCOSE Negative (Normal) 14-Jfr-83526:55 Albumin, 24-Hr Urine Comments: PATIENT NOT FASTINGPERFORMED BY: [facility] [id number] Albumin,Urine mg/day 34.8 {mg/day} (Abnormal) Albumin, Urine 34.8 ug/mL (Normal) :56 Protein Electro, Random Urine Comments: PATIENT WAS FASTINGPERFORMED BY: [facility]ustrixNov[facility] [id number] Please note: SPRCS (Normal) Comments: Protein electrophoresis scan will follow via computer, mail, orcourier delivery. M-Jas, % Not Observed % (Normal) Gamma Globulin, U 7.5 % (Normal) Beta Globulin, U 15.8 % (Normal) Ejqnl-2-Mbgcyllw, U 4.0 % (Normal) Lkmei-5-Yjmtogai, U 2.8 % (Normal) Albumin, U 69.9 % (Normal) Protein,Total,Urine 7.5 mg/dL (Normal) :55 Total Protein,24 Hour Comments: PATIENT NOT FASTINGPERFORMED BY: [employer] BlueNote NetworksNovant Health [facility] [id number] Information: START 12/11/17@651AM Urine (12061) Prot,24hr calculated 119 {mg/24_hr} (Normal) Range: 30-150 Protein,Total,Urine 11.9 mg/dL (Normal) :56 LIPID PANEL (59448) Comments: PATIENT WAS FASTINGPERFORMED BY: [facility]rixNov[facility] [id number] LDL/HDL Ratio 1.5 {ratio_units} (Normal) Range: 0.0-3.2 Comments: LDL/HDL Ratio Men Women 1/2 Avg.Risk 1.0 1.5 Av g.Risk 3.6 3.2 2X Avg.Risk 6.2 5.0 3X Avg.Risk 8.0 6.1 LDL Cholesterol Calc 105 mg/dL (Abnormal) Range: 0-99 VLDL Cholesterol Pete 17 mg/dL (Normal) Range: 5-40 HDL Cholesterol 69 mg/dL (Normal) Triglycerides 86 mg/dL (Normal) Range: 0-149 Cholesterol, Total 191 mg/dL (Normal) Range: 100-199 01-Mlt-798787:56 MICROALBUMIN: CREATININE RATIO Comments: PATIENT WAS FASTINGPERFORMED BY: [employer] Xowwpx4231 [facility] [id number] (98365) AND (89608) Microalb/Creat Ratio 87.3 {mg/g_creat} (Abnormal) Range: 0.0-30.0 Microalbumin, Urine 41.4 ug/mL (Normal) Creatinine, Urine 47.4 mg/dL (Normal) 95-Dmq-222808:56 METABOLIC PANEL, COMPREHENSIVE Comments: PATIENT WAS FASTINGPERFORMED BY: Darberrylin6370 [facility] [id number] (32577) ALT (SGPT) 15 [iU]/L (Normal) Range: 0-32 AST (SGOT) 26 [iU]/L (Normal) Range: 0-40 Alkaline Phosphatase, S 64 [iU]/L (Normal) Range: 39-117 Bilirubin, Total 0.2 mg/dL (Normal) Range: 0.0-1.2 A/G Ratio 1.8 (Normal) Range: 1.2-2.2 Globulin, Total 2.5 g/dL (Normal) Range: 1.5-4.5 Albumin, Serum 4.4 g/dL (Normal) Range: 3.5-5.5 Protein, Total, Serum 6.9 g/dL (Normal) Range: 6.0-8.5 Calcium, Serum 8.8 mg/dL (Normal) Range: 8.7-10.2 Carbon Dioxide, Total 23 mmol/L (Normal) Range: 18-29 Chloride, Serum 104 mmol/L (Normal) Range: 96-106 Potassium, Serum 4.1 mmol/L (Normal) Range: 3.5-5.2 Sodium, Serum 140 mmol/L (Normal) Range: 134-144 BUN/Creatinine Ratio 9 (Normal) Range: 9-23 eGFR If Africn Am 67 mL/min/1.73 (Normal) eGFR If NonAfricn Am 58 mL/min/1.73 (Abnormal) Creatinine, Serum 1.14 mg/dL (Abnormal) Range: 0.57-1.00 BUN 10 mg/dL (Normal) Range: 6-24 Glucose, Serum 84 mg/dL (Normal) Range: 65-99 89-Tsp-452682:56 CBC W/AUTO DIFF WBC (20145) Comments: PATIENT WAS FASTINGPERFORMED BY: LabMymich[facility] Clare6370 [facility] [id number] Immature Grans (Abs) 0.0 {x10E3/uL} (Normal) Range: 0.0-0.1 Immature Granulocytes 0 % (Normal) Baso (Absolute) 0.0 {x10E3/uL} (Normal) Range: 0.0-0.2 Eos (Absolute) 0.1 {x10E3/uL} (Normal) Range: 0.0-0.4 Monocytes(Absolute) 0.7 {x10E3/uL} (Normal) Range: 0.1-0.9 Lymphs (Absolute) 1.2 {x10E3/uL} (Normal) Range: 0.7-3.1 Neutrophils (Absolute) 4.1 {x10E3/uL} (Normal) Range: 1.4-7.0 Basos 0 % (Normal) Eos 1 % (Normal) Monocytes 11 % (Normal) Lymphs 20 % (Normal) Neutrophils 68 % (Normal) Platelets 230 {x10E3/uL} (Normal) Range: 150-379 RDW 12.7 % (Normal) Range: 12.3-15.4 MCHC 33.1 g/dL (Normal) Range: 31.5-35.7 MCH 31.7 pg (Normal) Range: 26.6-33.0 MCV 96 fL (Normal) Range: 79-97 Hematocrit 42.3 % (Normal) Range: 34.0-46.6 Hemoglobin 14.0 g/dL (Normal) Range: 11.1-15.9 RBC 4.42 {x10E6/uL} (Normal) Range: 3.77-5.28 WBC 6.1 {x10E3/uL} (Normal) Range: 3.4-10.8 90-Dsp-548229:56 Serum Protein Electrophoresis Comments: PATIENT WAS FASTINGPERFORMED BY: Alise DevicesMountain View Regional Medical CenterJjyspf6241 [facility] [id number] (SPEP) (76535) Please note: SPRCS (Normal) Comments: Protein electrophoresis scan will follow via computer, mail, orcourier delivery. A/G Ratio 1.3 (Normal) Range: 0.7-1.7 Globulin, Total 3.0 g/dL (Normal) Range: 2.2-3.9 M-Jas Not Observed g/dL (Normal) Gamma Globulin 1.0 g/dL (Normal) Range: 0.4-1.8 Beta Globulin 1.1 g/dL (Normal) Range: 0.7-1.3 Aakbq-5-Rzwnhasv 0.7 g/dL (Normal) Range: 0.4-1.0 Nfjqu-6-Idtsibwg 0.2 g/dL (Normal) Range: 0.0-0.4 Albumin 3.9 g/dL (Normal) Range: 2.9-4.4 :56 MAGNESIUM (46191) Comments: PATIENT WAS FASTINGPERFORMED BY: Alise DevicesSpecialty Hospital at MonmouthSnnwtv7368 [facility] [id number] Magnesium, Serum 2.1 mg/dL (Normal) Range: 1.6-2.3 :56 PHOSPHORUS (70081) Comments: PATIENT WAS FASTINGPERFORMED BY: SimplifyMymichigan Medical Center Clare6370 [facility] [id number] Phosphorus, Serum 3.1 mg/dL (Normal) Range: 2.5-4.5 :56 CALCIFEDIOL (72210) Comments: PATIENT WAS FASTINGPERFORMED BY: Alise DevicesSpecialty Hospital at MonmouthUpwdsv3373 [facility] [id number] Vitamin D, 25-Hydroxy 39.0 ng/mL (Normal) Range: 30.0-100.0 Comments: Vitamin D deficiency has been defined by the [place] of[place]icine and an Endocrine Society practice guideline as alevel of serum 25-OH vitamin D less than 20 ng/mL (1,2).The Endocrine Society went on to further define vitamin Dinsufficiency as a level between 21 and 29 ng/mL (2).1. IOM ([place] of Medicine). 2010. Dietary reference intakes for calcium and D. [place]: The National Academies Press.2. Chriss MF, Ez MUSE, Kilo MCCORMICK, et al. Evaluation, treatment, and prevention of vitamin D deficiency: an Endocrine Society clinical practice guideline. JCEM. 2010; 96(7):1911-30. :56 PARATHORMONE (67474) Comments: PATIENT WAS FASTINGPERFORMED BY: DanceTrippin6370 ZOGOtennisNorton Hospital [id number] PTH, Intact 30 pg/mL (Normal) Range: 15-65 :43 METABOLIC PANEL, COMPREHENSIVE Comments: PATIENT NOT FASTINGPERFORMED BY: DanceTrippin6370 FileboardECU [facility] [id number] (54225) ALT (SGPT) 10 [iU]/L (Normal) Range: 0-32 AST (SGOT) 16 [iU]/L (Normal) Range: 0-40 Alkaline Phosphatase, S 57 [iU]/L (Normal) Range: 39-117 Bilirubin, Total 0.3 mg/dL (Normal) Range: 0.0-1.2 A/G Ratio 1.8 (Normal) Range: 1.2-2.2 Globulin, Total 2.4 g/dL (Normal) Range: 1.5-4.5 Albumin, Serum 4.2 g/dL (Normal) Range: 3.5-5.5 Protein, Total, Serum 6.6 g/dL (Normal) Range: 6.0-8.5 Calcium, Serum 8.6 mg/dL (Abnormal) Range: 8.7-10.2 Carbon Dioxide, Total 21 mmol/L (Normal) Range: 18-29 Chloride, Serum 104 mmol/L (Normal) Range: 96-106 Potassium, Serum 3.9 mmol/L (Normal) Range: 3.5-5.2 Sodium, Serum 140 mmol/L (Normal) Range: 134-144 BUN/Creatinine Ratio 13 (Normal) Range: 9-23 eGFR If Africn Am 76 mL/min/1.73 (Normal) eGFR If NonAfricn Am 66 mL/min/1.73 (Normal) Creatinine, Serum 1.02 mg/dL (Abnormal) Range: 0.57-1.00 BUN 13 mg/dL (Normal) Range: 6-24 Glucose, Serum 83 mg/dL (Normal) Range: 65-99 69-Jcu-146820:40 TSH (46649) Comments: week of Aug 04; PATIENT NOT FASTINGPERFORMED BY: PenanaNorton Hospital [id number] TSH 4.000 {uIU/mL} (Normal) Range: 0.450-4.500 1-Ctw-609490:10 URINE EDWARD CULTURE-IDENTIFICATN Comments: PATIENT NOT FASTINGPERFORMED BY: [facility]rixNov[facility] [id number] (95294) Result 1 MUG (Normal) Comments: Mixed urogenital flora10,000-25,000 colony forming units per mL Urine Final report (Normal) Culture,Comprehensive 1-Hvy-867473:10 URINALYSIS (23264) Comments: PATIENT NOT FASTINGPERFORMED BY: [facility]rixNov[facility] [id number] Microscopic Examination MICNIP (Normal) Comments: Microscopic not indicated and not performed. Nitrite, Urine Negative (Normal) Urobilinogen,Semi-Qn 0.2 mg/dL (Normal) Range: 0.2-1.0 Bilirubin Negative (Normal) Occult Blood Negative (Normal) Ketones Negative (Normal) Glucose Negative (Normal) Protein Negative (Normal) WBC Esterase Negative (Normal) Appearance Clear (Normal) Urine-Color Yellow (Normal) pH 7.0 (Normal) Range: 5.0-7.5 Specific Edmonds 1.007 (Normal) Range: 1.005-1.030 5-Gpx-398459:10 MICROALBUMIN: CREATININE RATIO Comments: PATIENT NOT FASTINGPERFORMED BY: [employer]70 GlobiliNovant Health Mint Hill Medical Center [id number] (48463) AND (56862) Microalb/Creat Ratio 77.2 {mg/g_creat} (Abnormal) Range: 0.0-30.0 Microalbumin, Urine 26.4 ug/mL (Normal) Creatinine, Urine 34.2 mg/dL (Normal) 3-Dzv-645475:10 Metabolic Panel, Comments: PATIENT NOT FASTINGPERFORMED BY: [employer]70 FileboardECU [facility] [id number] Information: SRC: Comprehensive (47992) ALT (SGPT) 13 [iU]/L (Normal) Range: 0-32 AST (SGOT) 20 [iU]/L (Normal) Range: 0-40 Alkaline Phosphatase, S 54 [iU]/L (Normal) Range: 39-117 Bilirubin, Total 0.3 mg/dL (Normal) Range: 0.0-1.2 A/G Ratio 1.6 (Normal) Range: 1.2-2.2 Globulin, Total 2.7 g/dL (Normal) Range: 1.5-4.5 Albumin, Serum 4.3 g/dL (Normal) Range: 3.5-5.5 Protein, Total, Serum 7.0 g/dL (Normal) Range: 6.0-8.5 Calcium, Serum 9.2 mg/dL (Normal) Range: 8.7-10.2 Carbon Dioxide, Total 20 mmol/L (Normal) Range: 18-29 Chloride, Serum 104 mmol/L (Normal) Range: 96-106 Potassium, Serum 4.6 mmol/L (Normal) Range: 3.5-5.2 Sodium, Serum 142 mmol/L (Normal) Range: 134-144 BUN/Creatinine Ratio 11 (Normal) Range: 9-23 eGFR If Africn Am 73 mL/min/1.73 (Normal) eGFR If NonAfricn Am 63 mL/min/1.73 (Normal) Creatinine, Serum 1.06 mg/dL (Abnormal) Range: 0.57-1.00 BUN 12 mg/dL (Normal) Range: 6-24 Glucose, Serum 68 mg/dL (Normal) Range: 65-99 5-Sek-682031:10 T4, FREE (THYROXINE) (70855) Comments: PATIENT NOT FASTINGPERFORMED BY: [employer]6370 [facility] [id number] T4,Free(Direct) 1.03 ng/dL (Normal) Range: 0.82-1.77 :10 T3, FREE (TRIDOTHYRONINE) (98290) Comments: PATIENT NOT FASTINGPERFORMED BY: [facility]6370 [facility] [id number] Triiodothyronine,Free,Serum 2.8 pg/mL (Normal) Range: 2.0-4.4 :10 TSH (25781) Comments: PATIENT NOT FASTINGPERFORMED BY: [facility]6370 [facility] [id number] TSH 5.160 {uIU/mL} (Abnormal) Range: 0.450-4.500 80-Jad-804524:33 Serum Creatinine AND GFR Comments: [facility] [address] [place], [place], [address] EST GFR - AA 61 mL/min (Normal) Comments: GFR Calc EST GFR 50 mL/min (Abnormal) Comments: Non- GFR Calc CREAT,SERUM 1.22 mg/dL (Abnormal) Range: 0.55-1.02 Comments: The validity of the calculated GFR AND GFRAA in patients over70 years has not been determined. Clinical correlation isessential. :14 CBC W/Diff, Automated Comments: [facility] [address] [place], [place], [address] Absolute Lymph 1.12 {X10_3/ul} (Normal) Range: 0.83-4.51 Absolute Neut 4.5 {X10_3/uL} (Normal) Range: 2.0-7.7 IM GRAN % 0.800 % (Normal) Range: 0.0-0.9 Comments: IG% - Immature Granulocytes (promyelocytes, myelocytes andmetamyelocytes) > 1% indicates that a LEFT SHIFT is Present. BASO% 0.5 % (Normal) Range: 0-1 EO% 2.6 % (Normal) Range: 0-5 MONO% 9.3 % (Normal) Range: 0-10 LY% 17.4 % (Abnormal) Range: 19-41 NEUT% 69.4 % (Normal) Range: 47-70 MPV 9.8 fL (Normal) Range: 6.2-12.0 PLT 245 K/mm3 (Normal) Range: 150-450 RDW SD 44.8 fL (Abnormal) Range: 35.1-43.9 RDW CV 13.0 % (Normal) Range: 11.6-14.6 MCHC 33.9 {g/gl} (Normal) Range: 32-36 MCH 32.6 pg (Abnormal) Range: 27.0-32.0 MCV 96.1 fL (Normal) Range: 81-99 HCT 44.5 % (Normal) Range: 37-47 HGB 15.1 g/dL (Abnormal) Range: 12.0-15.0 RBC 4.63 {M/mm3} (Normal) Range: 4.2-5.4 WBC 6.4 K/mm3 (Normal) Range: 4.4-11.0 22-Mar-20178:14 Comprehensive Metabolic Profil Comments: [facility] [address] [place], [place], [id number] GAP 9 (Normal) Range: 5-15 CO2 26.0 mmol/L (Normal) Range: 21.0-32.0 CL 106 mmol/L (Normal) Range: 98-107 K 3.8 mmol/L (Normal) Range: 3.5-5.1 NA 141 mmol/L (Normal) Range: 136-145 T BILI 0.30 mg/dL (Normal) Range: 0.20-1.00 ALT 17 U/L (Normal) Range: 12-78 ALK P 57 U/L (Normal) Range: 45-117 AST 12 U/L (Abnormal) Range: 15-37 CA 8.8 mg/dL (Normal) Range: 8.5-10.1 A/G 1.0 {RATIO} (Normal) Range: 0.9-2.4 GLOB 3.6 g/dL (Abnormal) Range: 2.3-3.5 ALB 3.5 g/dL (Normal) Range: 3.4-5.0 T PROT 7.1 g/dL (Normal) Range: 6.4-8.2 BUN/CRE 10.7 {RATIO} (Normal) Range: 10-20 EST GFR - AA 61 mL/min (Normal) Comments: GFR Calc EST GFR 50 mL/min (Abnormal) Comments: Non- GFR Calc CREAT,SERUM 1.22 mg/dL (Abnormal) Range: 0.55-1.02 Comments: The validity of the calculated GFR AND GFRAA in patients over70 years has not been determined. Clinical correlation isessential. BUN 13 mg/dL (Normal) Range: 7-18 GLU 86 mg/dL (Normal) Range: 70-110 :14 Free T3 Comments: [facility] [address] [place], [place], [id number] FREE T3 2.2 pg/mL (Normal) Range: 2.18-3.98 :14 Lipid Profile Comments: [facility] [address] [place], [place], [id number] VLDL 23 mg/dL (Normal) Range: 5-40 LDL 102 mg/dL (Normal) Range: 0-130 HDL 74 mg/dL (Normal) Comments: The drugs N-Acetylcysteine and Metamizole may falsely deressthis assay. Reference Range HDL <40 mg/dL Low HDL Cholesterol HDL >or= 60 mg/dL High HDL Cholesterol TRIG 114 mg/dL (Normal) Comments: The drugs N-Acetylcysteine and Metamizole may falsely deressthis assay.Serum Triglycerides Reference Interval Normal <150 mg/dL Borderline high 150 - 199 mg/dL High 200 - 499 mg/dL Very High > or = 500 mg/dL CHOL 199 mg/dL (Normal) Comments: <200 mg/dL Desirable 200-240 mg/dL Borderline >240 mg/dL High Risk 22-Mar-20178:14 Microalb:Creat Ratio,Random UR Comments: [facility] [address] [place], [place], [id number] MALB:CREAT 18.6 {mg/g_CRE} (Normal) MICROALBUMIN,UR 18.6 mg/L (Normal) UR CREAT 100.00 mg/dL (Normal) :14 T4 Free Direct Comments: [facility] [address] [place], [place], [id number] T4 FREE DIRECT 0.83 ng/dL (Normal) Range: 0.76-1.46 22-Mar-20178:14 Thyroid Peroxidase AB Comments: [facility] (refer to report for specific site)refer to report for address and phone number TPO AB 6631 15 {IU/mL} (Normal) Range: 0-34 Comments: Performed at: [address] [id number] Director: West Spivey PhD, Phone: [phone] 22-Mar-20178:14 Thyroid Stim Hormone (TSH) Comments: [facility] [address] [place] [address], [address] TSH 6.38 {uIU/mL} (Abnormal) Range: 0.358-3.74 :14 Urinalysis, Complete Comments: How was Urine Obtained? [facility] [address] [place] [address], [address] MUCUS, URINE 0 SEEN {/hpf} (Normal) BACTERIA RARE {/hpf} (Normal) SQUAM EPI 0-5 SEEN {/hpf} (Normal) Range: 5-10 RBC-UA 0 SEEN {/hpf} (Normal) Range: 0-5 WBC 0 SEEN {/hpf} (Normal) Range: 0-5 LEUK ESTERASE Negative /ul (Normal) OCCULT BLOOD-UR 10 /ul (Abnormal) NITRITE UR Negative (Normal) UROBILI Normal mg/dL (Normal) PROT DIPSTX Negative mg/dL (Normal) pH UR 6.5 (Normal) Range: 5.0 - 8.0 SP.GR. DIPSTX 1.015 (Normal) Range: 1.002-1.030 KETONE UR Negative mg/dL (Normal) BILIRUBIN URINE Negative mg/dL (Normal) GLUCOSE, UR Normal mg/dL (Normal) CLARITY Clear (Normal) COLOR Yellow (Normal) 55-Mbv-598649:10 Mycoplasma pneu. IgG/IgM Abs Comments: PATIENT NOT FASTINGPERFORMED BY: [facility] [id number] M pneumoniae IgM Abs <770 U/mL (Normal) Range: 0-769 Comments: Negative <770 Clinically significant amount of M. pneumoniae antibody not detected. Low Positive 770 - 950 M. pneumoniae specific IgM presumptively detected. It is recommended that another sample be collected 1-2 weeks later to assure reactivity. Positive >950 Highly significant amount of M. pneumoniae specific IgM antibody detected. M pneumoniae IgG Abs 113 U/mL (Abnormal) Range: 0-99 Comments: Negative: <100 Indeterminate: 100 - 320 Positive: >320 The reference interva l established is intended as a baseline only. Values >100 may indicate a recent infection with Mycoplasma pneumoniae and need to be confirmed either by a po sitive IgM result and/or an additional specimen drawn 2-4 weeks later showing a significant increase in antibody levels. 64-Kxm-70317:56 Bordetella Pertussis PCR Comments: PATIENT NOT FASTINGPERFORMED BY: [employer] [address] [id number] Information: NASAL (80159) Bordetella parapertussis DNA Negative (Normal) Comments: This test was developed and its performance characteristics determinedby [employer]. It has not been cleared or approved by theU.S. Food and Drug Administration. The FDA has determined that lino chclearance or approval is not necessary. This test is used for clinicalpurposes. It should not be regarded as investigational or research. Bordetella pertussis DNA Negative (Normal) 3-Gni-499174:50 CPK Total, Creatine Kinase Comments: [facility] [address] [place], [address] CPK TOTAL 116 U/L (Normal) Range: 26-192 1-Lqv-799253:02 CBC with auto diff Comments: PATIENT NOT FASTINGPERFORMED BY: Alise DevicesSpecialty Hospital at MonmouthOexebf0641 [facility] [id number] Information: [id number] (50620) Immature Grans (Abs) 0.0 {x10E3/uL} (Normal) Range: 0.0-0.1 Immature Granulocytes 0 % (Normal) Baso (Absolute) 0.0 {x10E3/uL} (Normal) Range: 0.0-0.2 Eos (Absolute) 0.1 {x10E3/uL} (Normal) Range: 0.0-0.4 Monocytes(Absolute) 0.6 {x10E3/uL} (Normal) Range: 0.1-0.9 Lymphs (Absolute) 1.2 {x10E3/uL} (Normal) Range: 0.7-3.1 Neutrophils (Absolute) 5.4 {x10E3/uL} (Normal) Range: 1.4-7.0 Basos 0 % (Normal) Eos 1 % (Normal) Monocytes 8 % (Normal) Lymphs 16 % (Normal) Neutrophils 75 % (Normal) Platelets 292 {x10E3/uL} (Normal) Range: 150-379 RDW 12.9 % (Normal) Range: 12.3-15.4 MCHC 34.1 g/dL (Normal) Range: 31.5-35.7 MCH 32.0 pg (Normal) Range: 26.6-33.0 MCV 94 fL (Normal) Range: 79-97 Hematocrit 45.4 % (Normal) Range: 34.0-46.6 Hemoglobin 15.5 g/dL (Normal) Range: 11.1-15.9 RBC 4.84 {x10E6/uL} (Normal) Range: 3.77-5.28 WBC 7.3 {x10E3/uL} (Normal) Range: 3.4-10.8 4-Jpi-710936:46 EDWARD CULTURE-BLOOD (14107) Comments: PATIENT NOT FASTINGPERFORMED BY: [facility]Cross[facility] [id number] Information: SRC:BLD [id number] Result 1 NGFD (Normal) Comments: No aerobic or anaerobic growth in five days. Blood Culture, Routine Final report (Normal) 6-Bgk-273826:01 URINE EDWARD CULTURE-IDENTIFICATN Comments: PATIENT NOT FASTINGPERFORMED BY: [employer] Vrqiup0890 [facility] [id number] Information: [id number] (97788) Result 1 MUG (Normal) Comments: Mixed urogenital flora2,000 Colonies/mL Urine Culture,Comprehensive Final report (Normal) 3-Ppo-801960:22 Urinalysis, Office (94343) UA - LEUKOCYTE ESTERASE Negative (Normal) UA - NITRITE Negative (Normal) URINE UROBILINGN SHANAE TIMED Normal mg/dL (Normal) UA - PROTEIN 30 mg/dL (Normal) UA - PH 7 (Normal) UA - BLOOD Non Hemolyzed Moderate (Normal) UA - SPECIFIC GRAVITY 1.030 (Abnormal) UA - KETONES Negative mg/dL (Normal) UA - BILIRUBIN Negative (Normal) UA - GLUCOSE Negative (Normal) :05 Basic Metabolic Profile (BMP) Comments: Serial Specimen #1, #2 or #3? 1'TROP' Serial specimen #1, #2, #3, or #4: 1[facility] [address] [place], [place], [id number] GAP 5 (Normal) Range: 5-15 CO2 26.0 mmol/L (Normal) Range: 21.0-32.0 CL 109 mmol/L (Abnormal) Range: 98-107 K 4.0 mmol/L (Normal) Range: 3.5-5.1 NA 140 mmol/L (Normal) Range: 136-145 CA 8.8 mg/dL (Normal) Range: 8.5-10.1 BUN/CRE 11.8 {RATIO} (Normal) Range: 10-20 Estimated CRCL 50.34 ml/min (Normal) EST GFR - AA 59 mL/min (Abnormal) Comments: GFR Calc EST GFR 48 mL/min (Abnormal) Comments: Non- GFR Calc CREAT,SERUM 1.27 mg/dL (Abnormal) Range: 0.55-1.20 Comments: The validity of the calculated GFR AND GFRAA in patients over70 years has not been determined. Clinical correlation isessential. BUN 15 mg/dL (Normal) Range: 7-18 GLU 85 mg/dL (Normal) Range: 70-110 :05 CBC W/Diff, Automated Comments: [facility] [address] [place], [address] Absolute Lymph 1.64 {X10_3/ul} (Normal) Range: 0.83-4.51 Absolute Neut 8.3 {X10_3/uL} (Abnormal) Range: 2.0-7.7 IM GRAN % 1.300 % (Abnormal) Range: 0.0-0.9 Comments: IG% - Immature Granulocytes (promyelocytes, myelocytes andmetamyelocytes) > 1% indicates that a LEFT SHIFT is Present. BASO% 0.4 % (Normal) Range: 0-1 EO% 1.0 % (Normal) Range: 0-5 MONO% 9.3 % (Normal) Range: 0-10 LY% 14.6 % (Abnormal) Range: 19-41 NEUT% 73.4 % (Abnormal) Range: 47-70 MPV 9.6 fL (Normal) Range: 6.2-12.0 PLT 328 K/mm3 (Normal) Range: 150-450 RDW SD 45.4 fL (Abnormal) Range: 35.1-43.9 RDW CV 13.2 % (Normal) Range: 11.6-14.6 MCHC 34.0 {g/gl} (Normal) Range: 32-36 MCH 32.5 pg (Abnormal) Range: 27.0-32.0 MCV 95.6 fL (Normal) Range: 81-99 HCT 43.5 % (Normal) Range: 37-47 HGB 14.8 g/dL (Normal) Range: 12.0-15.0 RBC 4.55 {M/mm3} (Normal) Range: 4.2-5.4 WBC 11.3 K/mm3 (Abnormal) Range: 4.4-11.0 :05 CK-MB Quantitative and Index Comments: Serial Specimen #1, #2 or #3? 1'TROP' Serial specimen #1, #2, #3, or #4: [address] [place] [address] [place] [address], [id number] CKRI 0.9 % (Normal) Range: 0.0-1.4 Comments: RELATIVE INDEX >1.5% IS PRESUMPTIVELY POSITIVE CPKMB 0.8 ng/mL (Normal) Range: 0.0-5.0 Comments: CK-MB and RI Interpretation MB Relative Index Non-AMI <or= 5 NA Indeterminate > 5 <or= 4 AMI > 5 > 4 CPK TOTAL 90 U/L (Normal) Range: 26-192 :05 Troponin-I Comments: Serial Specimen #1, #2 or #3? 1'TROP' Serial specimen #1, #2, #3, or #4: [address] [place] [address] [address] [place], [address] TROPONIN-I < 0.02 ng/mL (Normal) Comments: TROPONIN-I EXPECTED VALUES <0.05 NEGATIVE 0.06 - 0.59 AT RISK OF RI > OR = 0.60 SUGGEST RI : Ferritin (63396) Comments: PATIENT NOT FASTINGPERFORMED BY: LabCoSpecialty Hospital at MonmouthVkiobs0542 [facility] [id number] Ferritin, Serum 47 ng/mL (Normal) Range: 15-150 Sed Rate Erythrocyte (61933) Comments: PATIENT NOT FASTINGPERFORMED BY: LabMymichigan [facility] Clare6370 [facility] [id number] Sedimentation Rate-Westergren 2 mm/h (Normal) Range: 0-32 : MICROALBUMIN: CREATININE RATIO Comments: PATIENT NOT FASTINGPERFORMED BY: LabMymichigan Medical Center Clare6[facility] [id number] ([id number]) AND ([id number]) Microalb/Creat Ratio 129.6 {mg/g_creat} (Abnormal) Range: 0.0-30.0 Microalbumin, Urine 97.3 ug/mL (Abnormal) Range: 0.0-17.0 Creatinine, Urine 75.1 mg/dL (Normal) Range: 15.0-278.0 : TSH ([id number]) Comments: PATIENT NOT FASTINGPERFORMED BY: [id number] [facility] [id number] TSH 6.780 {uIU/mL} (Abnormal) Range: 0.450-4.500 : METABOLIC PANEL, COMPREHENSIVE Comments: PATIENT NOT FASTINGPERFORMED BY: [facility] [place] [id number] ([id number]) ALT (SGPT) 40 [iU]/L (Abnormal) Range: 0-32 AST (SGOT) 35 [iU]/L (Normal) Range: 0-40 Alkaline Phosphatase, S 53 [iU]/L (Normal) Range: 39-117 Bilirubin, Total 0.2 mg/dL (Normal) Range: 0.0-1.2 A/G Ratio 1.6 (Normal) Range: 1.1-2.5 Globulin, Total 2.5 g/dL (Normal) Range: 1.5-4.5 Albumin, Serum 4.1 g/dL (Normal) Range: 3.5-5.5 Protein, Total, Serum 6.6 g/dL (Normal) Range: 6.0-8.5 Calcium, Serum 8.9 mg/dL (Normal) Range: 8.7-10.2 Carbon Dioxide, Total 22 mmol/L (Normal) Range: 18-29 Chloride, Serum 103 mmol/L (Normal) Range: 97-108 Potassium, Serum 3.9 mmol/L (Normal) Range: 3.5-5.2 Sodium, Serum 140 mmol/L (Normal) Range: 134-144 BUN/Creatinine Ratio 11 (Normal) Range: 9-23 eGFR If Africn Am 69 mL/min/1.73 (Normal) eGFR If NonAfricn Am 59 mL/min/1.73 (Abnormal) Creatinine, Serum 1.12 mg/dL (Abnormal) Range: 0.57-1.00 BUN 12 mg/dL (Normal) Range: 6-24 Glucose, Serum 78 mg/dL (Normal) Range: 65-99 [id number] CBC with auto diff Comments: PATIENT NOT FASTINGPERFORMED BY: [facility] [id number] [facility] [id number] Information: [id number] ([id number]) Immature Grans (Abs) 0.0 {x10E3/uL} (Normal) Range: 0.0-0.1 Immature Granulocytes 0 % (Normal) Baso (Absolute) 0.0 {x10E3/uL} (Normal) Range: 0.0-0.2 Eos (Absolute) 0.2 {x10E3/uL} (Normal) Range: 0.0-0.4 Monocytes(Absolute) 0.8 {x10E3/uL} (Normal) Range: 0.1-0.9 Lymphs (Absolute) 1.3 {x10E3/uL} (Normal) Range: 0.7-3.1 Neutrophils (Absolute) 5.6 {x10E3/uL} (Normal) Range: 1.4-7.0 Basos 0 % (Normal) Eos 3 % (Normal) Monocytes 9 % (Normal) Lymphs 16 % (Normal) Neutrophils 72 % (Normal) Platelets 270 {x10E3/uL} (Normal) Range: 150-379 RDW 13.2 % (Normal) Range: 12.3-15.4 MCHC 34.6 g/dL (Normal) Range: 31.5-35.7 MCH 32.4 pg (Normal) Range: 26.6-33.0 MCV 94 fL (Normal) Range: 79-97 Hematocrit 40.5 % (Normal) Range: 34.0-46.6 Hemoglobin 14.0 g/dL (Normal) Range: 11.1-15.9 RBC 4.32 {x10E6/uL} (Normal) Range: 3.77-5.28 WBC 7.9 {x10E3/uL} (Normal) Range: 3.4-10.8 81-Guu-874712:53 Serum Creatinine AND GFR Comments: [facility] [address] [place], [place], [address] EST GFR - AA 62 mL/min (Normal) Comments: GFR Calc EST GFR 51 mL/min (Abnormal) Comments: Non- GFR Calc CREAT,SERUM 1.21 mg/dL (Abnormal) Range: 0.55-1.20 Comments: The validity of the calculated GFR AND GFRAA in patients over70 years has not been determined. Clinical correlation isessential. :41 URINE EDWARD CULTURE-SHANAE COL Comments: PATIENT NOT FASTINGPERFORMED BY: [employer] [facility] [id number] Information: SRC:[facility] [id number] COUNT (44731) Result 1 MUG (Normal) Comments: Mixed urogenital flora10,000-25,000 colony forming units per mL Urine Final report (Normal) Culture,Comprehensive :51 COMPLEMENT, TOTAL (CH50) Comments: PATIENT NOT FASTINGPERFORMED BY: Alise DevicesSpecialty Hospital at MonmouthDuqpzz9479 [facility] [id number] Information: [id number] (93904) Complement, Total (CH50) 59 U/mL (Normal) Range: 42-62 08-Ebq-828302:52 COMPLEMENT C4 (16248) Comments: PATIENT NOT FASTINGPERFORMED BY: [facility] [id number] Complement C4, Serum 28 {mg/dL_Adult} (Normal) Range: 9-36 59-Yuh-023071:52 COMPLEMENT C3 (40328) Comments: PATIENT NOT FASTINGPERFORMED BY: [facility] Clare6370 [facility] [id number] Complement C3, Serum 118 {mg/dL_Adult} (Normal) Range: 90-180 92-Dmt-511162:52 CBC, Platelets & Auto Comments: PATIENT NOT FASTINGPERFORMED BY: [facility] Clare6370 [facility] [id number] Information: [id number] Diff (85533) Immature Grans (Abs) 0.0 {x10E3/uL} (Normal) Range: 0.0-0.1 Immature Granulocytes 0 % (Normal) Baso (Absolute) 0.0 {x10E3/uL} (Normal) Range: 0.0-0.2 Eos (Absolute) 0.2 {x10E3/uL} (Normal) Range: 0.0-0.4 Monocytes(Absolute) 0.5 {x10E3/uL} (Normal) Range: 0.1-0.9 Lymphs (Absolute) 1.0 {x10E3/uL} (Normal) Range: 0.7-3.1 Neutrophils (Absolute) 6.7 {x10E3/uL} (Normal) Range: 1.4-7.0 Basos 0 % (Normal) Eos 2 % (Normal) Monocytes 6 % (Normal) Lymphs 12 % (Normal) Neutrophils 80 % (Normal) Platelets 248 {x10E3/uL} (Normal) Range: 150-379 RDW 13.7 % (Normal) Range: 12.3-15.4 MCHC 33.7 g/dL (Normal) Range: 31.5-35.7 MCH 32.2 pg (Normal) Range: 26.6-33.0 MCV 96 fL (Normal) Range: 79-97 Hematocrit 40.3 % (Normal) Range: 34.0-46.6 Hemoglobin 13.6 g/dL (Normal) Range: 11.1-15.9 RBC 4.22 {x10E6/uL} (Normal) Range: 3.77-5.28 WBC 8.5 {x10E3/uL} (Normal) Range: 3.4-10.8 :52 Metabolic Panel, Comprehensive Comments: PATIENT NOT FASTINGPERFORMED BY: [employer] [id number] [facility] [id number] (75586) ALT (SGPT) 13 [iU]/L (Normal) Range: 0-32 AST (SGOT) 19 [iU]/L (Normal) Range: 0-40 Alkaline Phosphatase, S 50 [iU]/L (Normal) Range: 39-117 Bilirubin, Total 0.4 mg/dL (Normal) Range: 0.0-1.2 A/G Ratio 1.6 (Normal) Range: 1.1-2.5 Globulin, Total 2.4 g/dL (Normal) Range: 1.5-4.5 Albumin, Serum 3.9 g/dL (Normal) Range: 3.5-5.5 Protein, Total, Serum 6.3 g/dL (Normal) Range: 6.0-8.5 Calcium, Serum 8.9 mg/dL (Normal) Range: 8.7-10.2 Carbon Dioxide, Total 18 mmol/L (Normal) Range: 18-29 Chloride, Serum 106 mmol/L (Normal) Range: 97-108 Potassium, Serum 4.5 mmol/L (Normal) Range: 3.5-5.2 Sodium, Serum 139 mmol/L (Normal) Range: 134-144 BUN/Creatinine Ratio 12 (Normal) Range: 9-23 eGFR If Africn Am 71 mL/min/1.73 (Normal) eGFR If NonAfricn Am 61 mL/min/1.73 (Normal) Creatinine, Serum 1.10 mg/dL (Abnormal) Range: 0.57-1.00 BUN 13 mg/dL (Normal) Range: 6-24 Glucose, Serum 82 mg/dL (Normal) Range: 65-99 64-Vus-587300:28 URINE EDWARD CULTURE-IDENTIFICATN Comments: PATIENT NOT FASTINGPERFORMED BY: [employer] Rxkbjb3154 [facility] [id number] (74504) Result 1 MUG (Normal) Comments: Mixed urogenital flora50,000-100,000 colony forming units per mL Urine Final report (Normal) Culture,Comprehensive 47-Cqi-070230:28 MICROALBUMIN: CREATININE Comments: PATIENT NOT FASTINGPERFORMED BY: [facility]Co[address] [id number] Information: [id number] RATIO (62050) AND (59613) Microalb/Creat Ratio 125.4 {mg/g_creat} (Abnormal) Range: 0.0-30.0 Microalbumin, Urine 224.4 ug/mL (Abnormal) Range: 0.0-17.0 Creatinine, Urine 179.0 mg/dL (Normal) Range: 15.0-278.0 82-Gxb-122424:08 Urinalysis, Office (78516) UA - LEUKOCYTE ESTERASE Negative (Normal) UA - NITRITE Negative (Normal) URINE UROBILINGN SHANAE TIMED Normal mg/dL (Normal) UA - PROTEIN 100 mg/dL (Normal) UA - PH 6.5 (Normal) UA - BLOOD Non Hemolyzed Moderate (Normal) UA - SPECIFIC GRAVITY 1.030 (Abnormal) UA - KETONES Negative mg/dL (Normal) UA - BILIRUBIN Negative (Normal) UA - GLUCOSE Negative (Normal) 2-Jsh-579886:59 Free T3 Comments: Test performed at:[facility] [address] [place] [address] 03975 FREE T3 2.2 pg/mL (Normal) Range: 2.18-3.98 5-Wcu-515590:59 T4 Free Direct Comments: Test performed at:[facility] [address] [place] [address] 24805 T4 FREE DIRECT 1.00 ng/dL (Normal) Range: 0.76-1.46 5-Euf-288240:59 Thyroid Peroxidase AB Comments: Test performed at:[facility] Abb[address]if[address] [place] [address] 29791 TPO AB 6676 8 {IU/mL} (Normal) Range: 0-34 Comments: Performed at: [facility]Co[address] [id number] Director: West Spivey PhD, Phone: [phone] 3-Qbg-827056:59 Thyroid Stim Hormone (TSH) Comments: Test performed at:[facility] Md[address] [place] [address] TSH 2.15 {uIU/mL} (Normal) Range: 0.358-3.74 72-Qcq-648316:51 Microscopic Examination Comments: PATIENT NOT FASTINGPERFORMED BY: [address] [id number] Bacteria Few (Normal) Mucus Threads Present (Normal) Epithelial Cells (non renal) 0-10 {/hpf} (Normal) Range: 0 - 10 RBC 0-2 {/hpf} (Normal) Range: 0 - 2 WBC 0-5 {/hpf} (Normal) Range: 0 - 5 80-Xxo-526675:51 Thyroxine (T4) Free, Comments: PATIENT NOT FASTINGPERFORMED BY: [place] [id number] [facility] [id number] Information: [id number] Direct, S T4,Free(Direct) 1.02 ng/dL Range: 0.82-1.77 (Normal) 28-Feb-2015 Triiodothyronine,Free,Seru 2.3 pg/mL (Normal) Comments: PATIENT NOT FASTINGPERFORMED BY: [facility] [id number] 10:51 m Range: 2.0-4.4 28-Feb-2015 Written Authorization WAR (Normal) Comments: PATIENT NOT FASTINGPERFORMED BY: [facility] [id number] 10:51 Comments: Written Authorization Received.Authorization received from HILLARY RUSSELL [id number] by Mary Christensen 24-Fwc-030752:51 Creatine Kinase Total (18813) Comments: PATIENT NOT FASTINGPERFORMED BY: [facility] [id number] Creatine Kinase,Total,Serum 122 U/L (Normal) Range: 24-173 39-Alz-252258:51 CALCIFIDIOL (59277) VIT D 25 Comments: PATIENT NOT FASTINGPERFORMED BY: [facility] [id number] Vitamin D, 25-Hydroxy 28.8 ng/mL (Abnormal) Range: 30.0-100.0 Comments: Vitamin D deficiency has been defined by the [place] of[place]icine and an Endocrine Society practice guideline as alevel of serum 25-OH vitamin D less than 20 ng/mL (1,2).The Endocrine Society went on to further define vitamin Dinsufficiency as a level between 21 and 29 ng/mL (2).1. IOM ([place] of Medicine). 2010. Dietary reference intakes for calcium and D. [place]: The National Academies Press.2. Chriss MF, Ez MUSE, Kilo MCCORMICK, et al. Evaluation, treatment, and prevention of vitamin D deficiency: an Endocrine Society clinical practice guideline. JCEM. 2010; 96(7):1911-30. 84-Mdu-013397:51 TSH (31864) Comments: PATIENT NOT FASTINGPERFORMED BY: [facility] Clare6370 [facility] [id number] TSH 4.840 {uIU/mL} (Abnormal) Range: 0.450-4.500 88-Cvw-449160:51 URINALYSIS, W/ MICRO (80778) Comments: PATIENT NOT FASTINGPERFORMED BY: [facility] [id number] Microscopic Examination See below: (Normal) Comments: Microscopic was indicated and was performed. Microscopic Examination MICRON (Normal) Comments: Microscopic follows if indicated. Nitrite, Urine Negative (Normal) Urobilinogen,Semi-Qn 0.2 mg/dL (Normal) Range: 0.0-1.9 Bilirubin Negative (Normal) Occult Blood Negative (Normal) Ketones Negative (Normal) Glucose Negative (Normal) Protein Trace (Normal) WBC Esterase Negative (Normal) Appearance Clear (Normal) Urine-Color Yellow (Normal) pH 7.0 (Normal) Range: 5.0-7.5 Specific Edmonds 1.018 (Normal) Range: 1.005-1.030 :51 METABOLIC PANEL, COMPREHENSIVE Comments: PATIENT NOT FASTINGPERFORMED BY: [facility] [id number] (16382) ALT (SGPT) 11 [iU]/L (Normal) Range: 0-32 AST (SGOT) 17 [iU]/L (Normal) Range: 0-40 Alkaline Phosphatase, S 56 [iU]/L (Normal) Range: 39-117 Bilirubin, Total 0.3 mg/dL (Normal) Range: 0.0-1.2 A/G Ratio 1.7 (Normal) Range: 1.1-2.5 Globulin, Total 2.3 g/dL (Normal) Range: 1.5-4.5 Albumin, Serum 3.9 g/dL (Normal) Range: 3.5-5.5 Protein, Total, Serum 6.2 g/dL (Normal) Range: 6.0-8.5 Calcium, Serum 9.0 mg/dL (Normal) Range: 8.7-10.2 Carbon Dioxide, Total 20 mmol/L (Normal) Range: 18-29 Chloride, Serum 103 mmol/L (Normal) Range: 97-108 Potassium, Serum 4.5 mmol/L (Normal) Range: 3.5-5.2 Sodium, Serum 139 mmol/L (Normal) Range: 134-144 BUN/Creatinine Ratio 15 (Normal) Range: 9-23 eGFR If Africn Am 76 mL/min/1.73 (Normal) eGFR If NonAfricn Am 66 mL/min/1.73 (Normal) Creatinine, Serum 1.04 mg/dL (Abnormal) Range: 0.57-1.00 BUN 16 mg/dL (Normal) Range: 6-24 Glucose, Serum 86 mg/dL (Normal) Range: 65-99 69-Nvk-770852:51 CBC with auto diff Comments: PATIENT NOT FASTINGPERFORMED BY: KEVIN [facility]CoSpecialty Hospital at MonmouthCpmveg0523 [facility] [id number] Information: [id number] (94643) Immature Grans (Abs) 0.0 {x10E3/uL} (Normal) Range: 0.0-0.1 Immature Granulocytes 0 % (Normal) Baso (Absolute) 0.0 {x10E3/uL} (Normal) Range: 0.0-0.2 Eos (Absolute) 0.2 {x10E3/uL} (Normal) Range: 0.0-0.4 Monocytes(Absolute) 0.3 {x10E3/uL} (Normal) Range: 0.1-0.9 Lymphs (Absolute) 0.7 {x10E3/uL} (Normal) Range: 0.7-3.1 Neutrophils (Absolute) 3.4 {x10E3/uL} (Normal) Range: 1.4-7.0 Basos 0 % (Normal) Eos 3 % (Normal) Monocytes 6 % (Normal) Lymphs 15 % (Normal) Neutrophils 76 % (Normal) Platelets 229 {x10E3/uL} (Normal) Range: 150-379 RDW 12.7 % (Normal) Range: 12.3-15.4 MCHC 33.7 g/dL (Normal) Range: 31.5-35.7 MCH 31.5 pg (Normal) Range: 26.6-33.0 MCV 94 fL (Normal) Range: 79-97 Hematocrit 41.8 % (Normal) Range: 34.0-46.6 Hemoglobin 14.1 g/dL (Normal) Range: 11.1-15.9 RBC 4.47 {x10E6/uL} (Normal) Range: 3.77-5.28 WBC 4.7 {x10E3/uL} (Normal) Range: 3.4-10.8 45-Hka-789662:46 Metabolic Panel, Basic Comments: PATIENT NOT FASTINGPERFORMED BY: LabCoSpecialty Hospital at MonmouthSwmkny2994 [facility] [id number] Information: [id number] (00557) Calcium, Serum 9.2 mg/dL (Normal) Range: 8.7-10.2 Carbon Dioxide, Total 22 mmol/L (Normal) Range: 18-29 Chloride, Serum 103 mmol/L (Normal) Range: 97-108 Potassium, Serum 4.2 mmol/L (Normal) Range: 3.5-5.2 Sodium, Serum 140 mmol/L (Normal) Range: 134-144 BUN/Creatinine Ratio 13 (Normal) Range: 9-23 eGFR If Africn Am 76 mL/min/1.73 (Normal) eGFR If NonAfricn Am 66 mL/min/1.73 (Normal) Creatinine, Serum 1.04 mg/dL (Abnormal) Range: 0.57-1.00 BUN 13 mg/dL (Normal) Range: 6-24 Glucose, Serum 79 mg/dL (Normal) Range: 65-99 89-Kjw-469646:08 CPK 85 U/L (Normal) Range: 26-192 21-Gpd-785878:02 CPKISO tCKBB 0 % (Normal) Comments: Performed at: [address] [id number] Director: Emmanuel Cary MD, Phone: [phone] tCKMACI 0 % (Normal) tCKMB 0 % (Normal) Range: 0-3 tCKMM 100 % (Normal) Range: 97-100 tCKMACII 0 % (Normal) tCPK 81 U/L (Normal) Range: 24-173 :02 MYOS 52 ng/mL (Normal) Range: 25-58 Comments: Performed at: [address] [id number] Director: Emmanuel Cary MD, Phone: [phone] :24 BMP CO2 27.0 mmol/L (Normal) Range: 21.0-32.0 GAP 6 (Normal) Range: 5-15 CL 108 mmol/L (Abnormal) Range: 98-107 K 4.1 mmol/L (Normal) Range: 3.5-5.1 NA 141 mmol/L (Normal) Range: 136-145 BC 16.9 {RATIO} (Normal) Range: 10-20 CA 8.6 mg/dL (Normal) Range: 8.5-10.1 GFR 48 mL/min (Abnormal) GFRAA 58 mL/min (Abnormal) BUN 22 mg/dL (Abnormal) Range: 7-18 CREAT 1.3 mg/dL (Abnormal) Range: 0.6-1.0 GLU 93 mg/dL (Normal) Range: 70-110 :24 MIACRE tMICROCREAT 19.3 {mg/g_CRE} (Normal) MIALB 37.1 mg/L (Normal) CREU 191.6 mg/dL (Normal) :42 CPK 3766 U/L (Abnormal) Range: 26-192 44-Ygw-319779:42 CPKISO tCPK 4094 Comments: TEST RESULT LIMITSCK, Total+Isoenzymes, SerumCreatine Kinase,Total,Serum 4094 U/L H 24 - 173CK Isoenzymes:Macro Type 2 0 % Not Observe (Normal) dCK-MM 100 % 97 - 100Macro Type 1 0 % Not ObservedCK-MB 0 % 0 - 3CK-BB 0 % 0 TESTING PERFORMED AT [facility]. ORIGINAL REPORT ONFILE IN LAB CONTAINS ADDITIONAL TEST SITE INFORMATION. 1 MYOS 1188 Range: 25-58 7 ng/mL Comments: Performed at: [address] [id number] Director: Emmanuel Cary MD, Phone: [phone] - (Abnormal D ) e c - 2 0 1 3 1 6 : 4 2 98-Xqi-797856:52 MRSAD tMRSA Negative (Normal) SOURCE: NASAL SWAB (Normal) 55-Wda-508926:09 CUV VAC See Note (Normal) Comments: No Gardnerella, Neisseria orbeta-hemolytic Streptococcus isolated. [place] VERY RARE ORGANISM 1: YEAST GS See Note (Normal) Comments: Score = 0 Interpretation:Score 0 - 3 - Normal Jeni Score 4 - 6 - Intermediate Jeni Score 7 - 10 - Suggestive of Bacterial Vaginosis GRAM STAIN3+ EPITHELIAL CELLS4+ GRAM POSITIVE RODSNO GRAM NEGATIVE DIPLOCOCCI :01 CUW Comments: ULCER OF COCCYX WC See Note (Normal) Comments: Possible skin contamination, further Identification andsensitivity will be performed only by physician's request. [place] GROWTH 1+ ORGANISM 1: COAG NEGATIVE STAPH GS See Note (Normal) Comments: GRAM STAINRARE EPITHELIAL CELLSRARE GRAM POSITIVE RODS :01 HSAN Comment (Normal) Comments: NegativeNo Herpes simplex virus isolated.Performed at: - [address] [id number] Director: Gee Lord PhD, Phone: [phone] :18 CDIF See Note (Normal) Comments: A positive result in the glutamate dehydrogenase ofC. Difficile confirms the presence of the organism in a presence of toxigenic C. difficile. An indeterminate result (Antigen Negative/Toxin Positive)wi ll occur in approximately 10-12% of cases and should betreated as a positive result and retested with a freshspecimen. NOTE that Molecular testing for C. difficile isalso available in these cases. C. DIFF ANTIGENS NEGATIVE :18 CUST SHIGA See Note (Normal) Comments: SHIGA TOXIN 1 AND SHIGA TOXIN 2 NOT DETECTED CULST See Note (Normal) Comments: No Salmonella, Shigella, Yersinia or Campylobacter isolated.No significant amount of Staphylococcus aureusor yeast-like organisms isolated. :18 STOB See Note (Normal) Comments: OCCULT BLOOD Negative :18 WBCST See Note (Normal) Comments: FECAL WBC LACTOFERRIN Negative: No Fecal WBC Lactoferrin present :41 CMP GAP 10 (Normal) Range: 5-15 CO2 25.0 mmol/L (Normal) Range: 21.0-32.0 CL 104 mmol/L (Normal) Range: 98-107 K 3.5 mmol/L (Normal) Range: 3.5-5.1 NA 139 mmol/L (Normal) Range: 136-145 BIT 0.50 mg/dL (Normal) Range: 0.00-1.00 ALT 21 U/L (Normal) Range: 12-78 ALK 57 U/L (Normal) Range: 50-136 AST 15 U/L (Normal) Range: 15-37 CA 8.2 mg/dL (Abnormal) Range: 8.5-10.1 AG 1.2 {RATIO} (Normal) Range: 0.9-2.4 GLOB 2.9 g/dL (Normal) Range: 2.7-4.2 ALB 3.6 g/dL (Normal) Range: 3.4-5.0 TPROT 6.5 g/dL (Normal) Range: 6.4-8.2 BC 10.0 {RATIO} (Normal) Range: 10-20 GFRAA 63 mL/min (Normal) GFR 52 mL/min (Abnormal) CREAT 1.2 mg/dL (Abnormal) Range: 0.6-1.0 BUN 12 mg/dL (Normal) Range: 7-18 GLU 82 mg/dL (Normal) Range: 70-110 :41 CPK 93 U/L (Normal) Range: 26-192 :41 CPKISO tCKBB 0 % (Normal) tCKMB 0 % (Normal) Range: 0-3 tCKMACI 0 % (Normal) tCKMM 100 % (Normal) Range: 97-100 tCKMACII 0 % (Normal) tCPK 86 U/L (Normal) Range: 24-173 :41 LA 0.7 mmol/L (Normal) Range: 0.4-2.0 :41 MG 1.8 mg/dL (Normal) Range: 1.8-2.4 :41 MISC (Normal) Comments: TEST RESULT LIMITSMyoglobin, Serum 51 ng/mL 25 - 58 TESTING PERFORMED AT [facility]. ORIGINAL REPOR T ONFILE IN LAB CONTAINS ADDITIONAL TEST SITE INFORMATION. :41 MISC2 (Normal) Comments: TEST RESULT LIMITSCarnitine, Total and FreeCarnitine, Total 56 umol/L 25 - 69Carnitine, Free 38 umol/L 16 - 60Esterified/Free 0 .5 Ratio 0.1 - 0.9Esterified/Free Ratio is a calculated value equal to TotalCarnitine minus Free Carnitine divided by the FreeCarnitine. _TESTING PERFORMED AT [facility]. ORIGINAL REPORT ONFILE IN LAB CONTAINS ADDITIONAL TEST SITE INFORMATION. :41 ZI 77 ug/dL (Normal) Range: 56-134 Comments: Detection Limit = 5Performed at: [facility] [id number] Director: Gee Lord PhD, Phone: [phone] at: [address] [id number] Director: Ketan Lopez MD, Phone: [phone] 18-Jun-20138:52 Urinalysis, Office (08501) UA - BILIRUBIN Negative (Normal) UA - BLOOD Negative (Normal) UA - GLUCOSE Negative (Normal) UA - KETONES Negative mg/dL (Normal) UA - LEUKOCYTE ESTERASE Negative (Normal) UA - NITRITE Negative (Normal) UA - PH 7.0 (Normal) UA - PROTEIN Trace mg/dL (Normal) UA - SPECIFIC GRAVITY 1.025 (Normal) Comments: 1.030 URINE UROBILINGN SHANAE TIMED Normal mg/dL (Normal) 9-Dyg-104045:13 Pathology Report Comments: PERFORMED BY: [facility]Flag[facility] [id number] [facility] [id number] BY: Edmund# [facility] Qjknhvaaz174 [facility] [id number] 2070Clinical Information: [id number] See MATER Comments: Material submitted: .VULVA BXClinical history: .DO HISTOLOGY IMMUNOFLUORESCENCE LIGHT MICROSCOPY. PATIENT WITH + Note (Normal) LUPUS. 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 AN ADDENDUM WILL FOLLOW.BXS/03/19/2013Addendum: .MICROSCOPIC DESCRIPTION:THE SPECIMEN CONS ISTS OF TWO PUNCH BIOPSIES OF SKIN. ONE SPECIMENSHOWS A LITTLE SPONGIOSIS OVERLYING A SUPERFICIAL AND DEEPPERIVASCULAR AND PERIFOLLICULAR INFILTRATE COMPOSED PREDOMINANTLYOF LYMPHOCYTES WITH A FEW SCATT ERED HISTIOCYTES AND PLASMA CELLS.THERE IS A LITTLE SUPERFICIAL DERMAL EDEMA. NO EXOCYTOSIS ISAPPRECIATED. NO INTERFACE ALTERATION IS IDENTIFIED. NO VIRALCYTOPATHIC EFFECT IS SEEN. THE REMAINING PUNCH B IOPSY SHOWS A VERYBRISK SUPERFICIAL AND DEEP PREDOMINANTLY LYMPHOID INFILTRATEASSOCIATED WITH SUPERFICIAL DERMAL EDEMA AND OVERLYING SPONGIOSISWITH OCCASIONAL INTRAEPIDERMAL DYSKERATOTIC CELLS. THERE IS ALSOEARLY PARAKERATOSIS DEVELOPING SUBJACENT TO A NORMAL BASKET-WEAVECORNIFIED LAYER. LYMPHOCYTES ARE PREDOMINANTLY SMALL TO MEDIUM INSIZE, WITH RARE SCATTERED LARGE CELLS WITH CENTRAL NUCLEOLIAPPRECIA MARA. SCATTERED PLASMA CELLS AND HISTIOCYTES ARE NOTED. NOSIGNIFICANT EXOCYTOSIS INTO SURFACE EPITHELIUM OR ADNEXALEPITHELIUM IS APPRECIATED. NO VIRAL CYTOPATHIC EFFECT IS NOTED.PAS STAIN IS NEGATIVE FOR FUNGAL ELEMENTS..SECTIONS OF TISSUE ARE STAINED IMMUNOHISTOCHEMICALLY TO BETTERDEFINE THE PHENOTYPE OF THE BRISK CUTANEOUS LYMPHOID INFILTRATE.THERE IS AN ADMIXTURE OF CD3 AND CD20 POSITIVE T AND B-CHRISTOPHER LS,RESPECTIVELY IN A RATIO OF APPROXIMATELY 2:1. CD20 CORRESPONDS TOLOOSE AGGREGATES OF CELLS IN THE SUPERFICIAL DERMIS. CD4 AND CD8ARE PRESENT IN A NORMAL RATIO OF 3:1 AND CD5 AND CD7 EXPRESSIONIS VERENA INED, MIRRORING THE EXPRESSION OF CD3. CD30 IS PRESENT INRARE MOSTLY INDIVIDUAL SCATTERED LYMPHOCYTES. NO SIGNIFICANT [id number] IS APPRECIATED. BOTH CD10 AND BCL-6 STAININDIVIDUAL CELLS MOSTLY IN B-CELL ZONES. BCL-2 IS SEEN WITHINBOTH B AND T-CELL POPULATIONS. THERE IS POLYTYPIC EXPRESSION OFKAPPA AND LAMBDA LIGHT CHAINS...DIAGNOSIS:BRISK SUPERFICIAL AND DEEP PERIVASCULAR, NODULAR ANDPERIAPPE NDAGEAL LYMPHOCYTIC INFILTRATE ASSOCIATED WITH DERMALEDEMA, SEE COMMENT BELOW..COMMENT:BOTH BIOPSY SPECIMENS SAMPLE A SKIN FRAGMENT CONTAINING A BRISKPREDOMINANTLY LYMPHOID INFILTRATE, AND DESPITE THE F OCALLYCELLULAR NATURE OF THE PROCESS, THE IMMUNOPHENOTYPIC FINDINGSWOULD SUPPORT A REACTIVE PROCESS. SO-CALLED PSEUDOLYMPHOMATOUSCUTANEOUS LYMPHOID INFILTRATES CAN OCCUR IN THE SETTING OF AVARIETY OF CHRONIC ANTIGENIC STIMULANTS. IN THIS PARTICULARSCENARIO I WOULD CERTAINLY CONSIDER A REACTION TO VIRAL INFECTION(HERPES INCOGNITO) ASSOCIATED WITH A PSEUDOLYMPHOMATOUSINFILTRATE. YOU KNOW, THIS LATT ER CONDITION OFTEN PRODUCES ABRISK SUPERFICIAL AND DEEP LYMPHOID INFILTRATE, AND NO VIRALCYTOPATHIC EFFECT IS APPRECIATED. OTHER CONSIDERATIONS WOULDINCLUDE A PSEUDOLYMPHOMATOUS REACTION SECONDARY TO A PERSISTENTTICK BITE OR POSSIBLY OCCURRING IN THE SETTING OF A DRUGHYPERSENSITIVITY. A PREDOMINANTLY DERMAL REACTION OCCURRING INTHE SETTING OF A CHRONIC CONTACTANT OR ALLERGEN WOULD ALSO BECONSIDERED IN THE DIFFERENTIAL DIAGNOSIS. I DO NOT APPRECIATEFEATURES OF LUPUS ERYTHEMATOSUS IN THIS BIOPSY MATERIAL.RECOMMEND CORRELATION WITH CLINICAL FINDINGS AND LABORATORYANALYSIS CLINICALLY INDICATED FOR FU RTHER DIAGNOSTICCLASSIFICATION. REPEAT BIOPSY FOR COMPARISON IS SUGGESTED IF THEPROCESS SHOULD FAIL TO RESPOND TO MANAGEMENT OR CONTINUE TOEVOLVE CLINICALLY..REVIEWED BY:CHICO MOON M.D..MARGARITA/ 3Addendum Electronically Signed by Jennifer Fung M.D., DermatopathologistElectronically signed: .Jennifer Fung MD, DermatopathologistGross description: .SUBMITTED IN FORMALIN LABELED KRISTIN YOUNG AND IS DESIGNATED VULVABIOPSY X 2 ARE TWO FLOYD YELLOW PUNCH BIOPSIES WITH THE FIRST PUNCHBIOPSY MEASURING .4 CM IN D IAMETER AND IS EXCISED TO A DEPTH OF.5 CM. THE MARGINS ARE INKED BLUE. IT IS BISECTED AND THE SECONDPUNCH BIOPSY MEASURES .4 CM IN DIAMETER AND IS EXCISED TO A DEPTHOF .3 CM. THE MARGINS ARE INKED BLACK . IT IS BISECTED AND THESPECIMEN IS SUBMITTED IN TOTO IN A SINGLE CASSETTE.XJW/BXSCPT .260035, 250907, R24645, L78912, F38419, Y27024, P8 3425, Y23978, K67987,P84774, L33727, V07879, Q08463, [id number], [id number] 1 HS12G Comments: The specimen submitted does not meet the laboratory'scriteria for acceptability. Refer to [facility]'s Directory ofServices for specimen acceptability criteria.RECEIVED: VIRAL TRANSPORTREQUIRES: SERUMCONTA 1 (Normal) CTED LAURA APPLE AT YOUR FACILITY [id number]: PERFORM [id number] HSV CULTURE WITH TYPINGNegative <0.9Equivocal 0.9 - 1.0Positive >1.0.Note: Negative indicates no antibodies detected - toeither HSV-1 or HSV-2. Equivocal may suggest earlyinfection. If clinically appropriate, retest at alater date. Positive indicates antibodies detectedto HSV-1 and/or HSV-2. M a r - 2 0 1 3 1 2 : 1 7 [id number] CBCD ANC 4.1 3/uL (Normal) Range: 2.0-7.7 B% 0.5 % (Normal) Range: 0-1 E% 0.8 % (Normal) Range: 0-5 M% 12.5 % (Abnormal) Range: 0-10 L% 14.8 % (Abnormal) Range: 19-41 N% 71.4 % (Abnormal) Range: 47-70 MPV 8.4 fL (Normal) Range: 6.5-12.0 PLT 219 K/mm3 (Normal) Range: 150-450 RDW 12.3 % (Normal) Range: 11.6-14.6 MCHC 34.4 g/dL (Normal) Range: 32-36 MCH 34.0 pg (Abnormal) Range: 27.0-32.0 MCV 98.7 fL (Normal) Range: 81-99 HCT 41.5 % (Normal) Range: 37-47 HGB 14.3 g.dL (Normal) Range: 12.0-15.0 RBC 4.21 {M/mm3} (Normal) Range: 4.2-5.4 WBC 5.8 K/mm3 (Normal) Range: 4.4-11.0 [id number] CKMB CPKMB 1.3 ng/mL (Normal) Range: 0.0-5.0 Comments: CK-MB and RI Interpretation MB Relative Index Non-AMI <or= 5 NA Indeterminate > 5 <or= 4 AMI > 5 > 4 CPK 123 U/L (Normal) Range: 26-192 [id number]-Ajc-[id number]:23 CMP GAP 9 (Normal) Range: 5-15 CO2 28.0 mmol/L (Normal) Range: 21.0-32.0 CL 104 mmol/L (Normal) Range: 98-107 K 3.9 mmol/L (Normal) Range: 3.5-5.1 NA 141 mmol/L (Normal) Range: 136-145 BIT 0.60 mg/dL (Normal) Range: 0.00-1.00 ALT 26 U/L (Normal) Range: 12-78 ALK 49 U/L (Abnormal) Range: 50-136 AST 21 U/L (Normal) Range: 15-37 CA 9.2 mg/dL (Normal) Range: 8.5-10.1 AG 1.3 {RATIO} (Normal) Range: 0.9-2.4 GLOB 3.2 g/dL (Normal) Range: 2.7-4.2 ALB 4.0 g/dL (Normal) Range: 3.4-5.0 TPROT 7.2 g/dL (Normal) Range: 6.4-8.2 BC 7.5 {RATIO} (Abnormal) Range: 10-20 GFRAA 64 mL/min (Normal) GFR 53 mL/min (Abnormal) CREAT 1.2 mg/dL (Abnormal) Range: 0.6-1.0 BUN 9 mg/dL (Normal) Range: 7-18 GLU 89 mg/dL (Normal) Range: 70-110 25-Fza-516880:23 TROP < 0.02 ng/mL (Normal) Comments: TROPONIN-I EXPECTED VALUES <0.05 NEGATIVE 0.06 - 0.59 AT RISK OF RI > OR = 0.60 SUGGEST RI 25-Aug-20120:00 BRAIN W/WO CONTRAST Radiology Report See Note Comments: PROCEDURE: MRI BRAIN WITH AND WITHOUT CONTRAST REASON FOR EXAM: Female, 41 years old. Memory loss with episodes ofconfusion and difficulty finding words. TECHNIQUE: Standardized multiplanar fat an (Normal) d water weighted pulsesequences were obtained. 15 ml of Magnevist contrast material wasadministered intravenously for the contrast portion of the examination. COMPARISON: MRI brain without and with c ontrast 03/28/2010. FINDINGS:Normal size of the ventricles and extra-axial spaces for the patient'macey.There are a limited number of punctate of FLAIR and T2 signalhyperintensity in the bihemispheric wh ite matter, appearing largely newwhen compared to the previous study. These represent a nonspecificfindingin an individual of this age. Differential diagnosis includes chronicmicrovascular ischemic ch fish (including vasculitic etiologies), residuafrom headaches or head trauma, postinfectious/inflammatory demyelinatingprocess or nonspecific gliosis. Clinical correlation with continued MRIsurveillanc e is recommended, as clinically warranted. There is noevidencefor recent intracranial ischemia or other cause of cytotoxic edema ondiffusion weighted imaging (DWI). Normal bilateral basal ganglia. Norm al thalami. There is no extra-axialfluid accumulation. Normal flow voids within the major intracranial circulation suggestingpatency by spin echo criteria. Normal venous enhancement. There is noenhan cing intra-axial or extra-axial abnormality. Normal appearance of the pituitary gland, infundibulum, optic chiasm andhypothalamic region, within the constraints of a routine brain study.Normal tectal pl ate and pineal gland. Normal midbrain, onelia and medulla. Normal cerebellum. Normal basalcisterns. Normal bilateral temporal bones. Normal visualized bilateralinternal auditory canal structures, given routine brain imaging. No demonstrated orbital abnormality, within the constraints of a routinebrain study. No substantial mucosal inflammatory disease of thevisualizedparanasal sinuses. Normal appear ance of the calvarium and visualizedosseous skull base structures. Normal visualized extracranial softtissuestructures. Normal visualized upper cervical spine. IMPRESSION:Limited number of punctate foc i of FLAIR and T2 signal hyperintensity inthe bihemispheric white matter, new and/or slightly increased inconspicuity since the previous study. These represent a nonspecificfinding in an individual of this age. Differential diagnosis includeschronic microvascular ischemic change (including vasculitic etiologies),residua from headaches or head trauma, postinfectious/inflammatorydemyelinating process or nonspecific gliosis. Clinical correlation withcontinued MRI surveillance is recommended, as clinically warranted. No additional demonstrated intracranial abnormality on unenhanced andenhanced brain MRI. Signed:Lorena Lutz M.D.August 25, 2012 at 2:18:09 PM [id number] Signed DN/DN If you are the referring physician and would like to consult with theradiologist who provided th is interpretation, please contact Lorena Velazquez M.D. at [phone]. If this radiologist is unavailable, youwillbe directed to another radiologist to assist. If you are a patient with a question rega rding this report, pleasecontactyour referring physician directly. Professional Interpretation Provided By: [employer], Phone , These documents contain legally protected a nd confidential healthinformation intended only for the use of the individual or entity namedabove. If you are not the intended recipient, you are hereby notifiedthatany disclosure, copying, distributio n, or other use of these documents isstrictly prohibited. If you have received this information in error,pleasenotify the sender immediately and arrange for the return or destructionofthese documents. Dictated on 08/25/12 1033 by LORENA LUTZ MD RTranscribed on 08/25/12 1423 by ITS IMPORTSign by LORENA LUTZ MD on 08/25/121423 Sign by: LORENA LUTZ MD 25-Aug-20120:00 MRA HEAD WITHOUT CONTRAST Radiology Report See Note (Normal) Comments: PROCEDURE: MRA OF THE HEAD WITHOUT CONTRAST REASON FOR EXAM: Female, 41 years old. Memory loss with episodes ofconfusion and difficulty finding words. TECHNIQUE: 3-D lttq-qq-etaidt (TOF) imaging was performed with MIPs.Thestudy was performed unenhanced. COMPARISON: There are no previous intracranial vascular imaging studiesforcomparison. Correlation is made to MRI brain performed in conjuncti onwiththis study (see separate report). FINDINGS:Normal visualized bilateral petrous internal carotid arteries. Normalright cavernous carotid artery with a normal supraclinoid bifurcation.Normal left c avernous carotid artery with a normal supraclinoidbifurcation. Normal right A1 segments of the anterior cerebral artery. Normal left A7wfejklkw of the anterior cerebral artery. Normal intact anteriorc ommunicating artery (ACOM). Normal visualized proximal bilateral O5vweqtdbe of the anterior cerebral arteries. Normal right M1 and M2 segments of the middle cerebral arteries, with anormal M1 bifurcati on. Normal left M1 and M2 segments of the middlecerebral arteries, with a normal M1 bifurcation. Right posterior communicating artery is thought to be partiallyvisualizedon source images There is non -visualization of the left posteriorcommunicating artery (PCOM). Normal visualized bilateral distal vertebral arteries, dominant on theleftand hypoplastic on the right. Normal basilar artery with a nor malbasilarbifurcation. The visualized bilateral superior cerebellar (SCA)arteriesare normal. Normal bilateral P1, P2 and visualized P3 segments of the posteriorcerebral arteries. There is no demonstra mara aneurysm of the k[place] dehe [place], within thetechnical limitations of this modality. No demonstrated hemodynamicallysignificant stenosis or major branch occlusion. IMPRESSION:No significant abnormal ity of visualized intracranial vasculature. Signed:Lorena Lutz M.D.August 25, 2012 at 2:24:09 PM [id number] Signed DN/DN If you are the referring physician and would like to cons ult with theradiologist who provided this interpretation, please contact Lorena Velazquez M.D. at [phone]. If this radiologist is unavailable, youwillbe directed to another radiologist to assist. If you are a patient with a question regarding this report, pleasecontactyour referring physician directly. Professional Interpretation Provided By: [employer], Phone , Thes e documents contain legally protected and confidential healthinformation intended only for the use of the individual or entity namedabove. If you are not the intended recipient, you are hereby notifiedt hatany disclosure, copying, distribution, or other use of these documents isstrictly prohibited. If you have received this information in error,pleasenotify the sender immediately and arrange for the re turn or destructionofthese documents. Dictated on 08/25/12 1027 by LORENA LUTZ MD RTranscribed on 08/25/121754 by ITS IMPORTSign by LORENA LUTZ MD on 08/25/121755 Sign by: BOLIVAR MARTÍNEZLORENA R 6-Ttq-[id number]:19 ANCA tATYPANCA <1:20 {titer} Comments: The atypical pANCA pattern has been observed in asignificant percentage of patients with ulcerative colitis,primary sclerosing cholangitis and autoimmune hepatitis.Performed at: - [id number] (Normal) [place], [place] [id number] Director: Katelin Swift MD, Phone: [phone] tANCAP <1:20 {titer} Comments: The presence of positive fluorescence exhibiting P-ANCA orC-ANCA patterns alone is not specific for the diagnosis ofWegener's Granulomatosis (WG) or microscopic polyangiitis.Decisions about treatment sh (Normal) ould not be based solely onANCA IFA results. The International ANCA Group Consensusrecommends follow up testing of positive sera with both DC-3 and MPO-ANCA enzyme immunoassays. As many as 5% serumsamp les are positive only by EIA. Ref. AM J Clin Nhdlyk0952;111:507-513. tANCAC <1:20 {titer} (Normal) 19-Jpt-793217:3 MISC . (Normal) Comments: TEST RESULT LIMITSANCA PanelAntimyeloperoxidase (MPO) Abs < 9.0 U/mL 0.0 - 9.0Antiproteinase 3 (DC-3) Abs < 3.5 U/mL 0.0 - 3.5Cytoplasmic (C-AN CA) 9 < 1:20 titer Neg:<1:20Perinuclear (P-ANCA) < 1:20 titer Neg:<1:20The presence of positive fluorescence exhibiting P-ANCA orC-ANCA patterns alone is not specific for the diagnosis ofWegener's Granulomatosis (WG) or microscopic polyangiitis. Decisions about treatment should not be based solely on ANCAIFA results. The International ANCA Group Consensusrecommends follow up testing of positive sera with both DC-3and MPO-ANCA enzyme immunoassays. As many as 5% serumsamples are positive only by EIA.Ref. AM J Clin Pathol 1999;111:507-513.Atypical pANCA < 1:20 titer Neg:<1:20The atypical pANCA pattern has been observed in asignificant percentage of patients with ulcerative colitis,primary sclerosing cholangitis and autoimmune hepatitis. TESTING PERFORMED AT [facility]. ORIGINAL REPORT ON FILE IN LAB CONTAINS ADDITIONAL TEST SITE INFORMATION. [id number] BILAT SCRN DIGITAL & CAD Radiology Report See Note (Normal) Comments: MAMMOGRAPHY - BILATERAL SCREENING REASON FOR EXAM: Female, 41 years old. Routine annual screeningexamination. PERTINENT HISTORY: Non-contributory. TECHNIQUE: Digital examination. Med iolateral ob lique (MLO) andcraniocaudad (CC) views of both breasts were obtained. CAD: CAD wasperformed on this study. COMPARISON: This is a baseline study. FINDINGS:The breast composition is heterogeneously dens e. There are no dominant masses or suspicious calcifications. No other significant abnormalities are identified. There has been nosignificant change since the prior study. IMPRESSION:Stable bilateral s creening mammogram. Yearly follow-up recommended. (A) ASSESSMENT CATEGORY:BIRADS Category 2: Benign finding(s). A letter regarding these resultswill be sent to the patient by the facility within 30 days. Approximately 10% of breast cancers are not detected by mammography. Anormal mammogram should not delay biopsy of a clinically suspiciousabnormality. Signed:Oni Leone M.D.June 30 12 at 4:03:08 PM [id number] Signed GP/GP If you are the referring physician and would like to consult with theradiologist who provided this interpretation, please contact Jeremie moreira M.D. at [phone]. If this radiologist is unavailable, youwill be directed to another radiologist to assist. If you are a patient with a question regarding this report, pleasecontactyour refer ring physician directly. Professional Interpretation Provided By: [employer], Phone , These documents contain legally protected and confidential healthinformation intended only for the use of the individual or entity namedabove. If you are not the intended recipient, you are hereby notifiedthatany disclosure, copying, distribution, or other use of these documents isstric tly prohibited. If you have received this information in error,pleasenotify the sender immediately and arrange for the return or destructionofthese documents. Dictated on 06/30/12 1453 by Sulema Rutledge,AdrianriCasranscribed on 06/30/12 1608 by ITS IMPORTSign by Oni Leone MD on 06/30/12 1609 Sign by: Oni Leone MD 27-May-2012 C3 92 (Normal) Range: 90-180 11:56 Comments: INFCE Result Units: mg/dL AdultPerformed at: [facility] [id number] Director: Katelin Swift MD, Phone: [phone] 27-May-2012 C4 24 (Normal) Range: 9-36 11:56 Comments: INFCE Result Units: mg/dL Adult [id number]-Poc-[id number]:56 CBCD ANC 3.4 3/uL (Normal) Range: 2.0-7.7 B% 0.2 % (Normal) Range: 0-1 E% 1.8 % (Normal) Range: 0-5 M% 8.1 % (Normal) Range: 0-10 L% 11.8 % (Abnormal) Range: 19-41 N% 78.1 % (Abnormal) Range: 47-70 MPV 8.2 fL (Normal) Range: 6.5-12.0 PLT 213 K/mm3 (Normal) Range: 150-450 RDW 14.9 % (Abnormal) Range: 11.6-14.6 MCHC 35.1 g/dL (Normal) Range: 32-36 MCH 35.5 pg (Abnormal) Range: 27.0-32.0 MCV 101.2 fL (Abnormal) Range: 81-99 HCT 34.7 % (Abnormal) Range: 37-47 HGB 12.1 g/dL (Normal) Range: 12.0-16.0 RBC 3.42 {M/mm3} (Abnormal) Range: 4.2-5.4 WBC 4.4 K/mm3 (Normal) Range: 4.4-11.0 23-Tne-[id number]:56 CMP Comments: Interface Comments: VERIFIED DX 03/24/12 AST Order Date: 03/24/12Diagnosis: 782.3 - SYMPTOMS INVOLVING SKIN AND OTHER INTEGUMENTARY TISSUE, EDEMA (782.3)OV Order #: [id number] ID: [id number] ORDERED BMPDRCHELI HAS A COPY TO GO TO GAP 10 (Normal) Range: 5-15 CO2 23.0 mmol/L (Normal) Range: 21.0-32.0 CL 109 mmol/L (Abnormal) Range: 98-107 K 3.7 mmol/L (Normal) Range: 3.5-5.1 NA 142 mmol/L (Normal) Range: 136-145 BIT 0.50 mg/dL (Normal) Range: 0.00-1.00 ALT 19 U/L (Normal) Range: 12-78 ALK 38 U/L (Abnormal) Range: 50-136 AST 12 U/L (Abnormal) Range: 15-37 CA 7.7 mg/dL (Abnormal) Range: 8.5-10.1 AG 1.1 {RATIO} (Normal) Range: 0.9-2.4 GLOB 3.0 g/dL (Normal) Range: 2.7-4.2 ALB 3.4 g/dL (Normal) Range: 3.4-5.0 TPROT 6.4 g/dL (Normal) Range: 6.4-8.2 BC 10.9 {RATIO} (Normal) Range: 10-20 GFRAA 70 mL/min (Normal) GFR 58 mL/min (Abnormal) CREAT 1.1 mg/dL (Abnormal) Range: 0.6-1.0 BUN 12 mg/dL (Normal) Range: 7-18 GLU 84 mg/dL (Normal) Range: 70-110 90-Wga-762036:56 MG 1.9 mg/dL (Normal) Comments: Interface Comments: VERIFIED DX 03/24/12 AST Order Date: 03/24/12Diagnosis: 782.3 - SYMPTOMS INVOLVING SKIN AND OTHER INTEGUMENTARY TISSUE, EDEMA (782.3)OV Order #: [id number] ID: [id number] ORDERED BMPDRCHELI HAS A COPY TO GO TO Range: 1.8-2.4 :56 PHOS 2.9 mg/dL (Normal) Comments: Interface Comments: VERIFIED DX 03/24/12 AST Order Date: 03/24/12Diagnosis: 782.3 - SYMPTOMS INVOLVING SKIN AND OTHER INTEGUMENTARY TISSUE, EDEMA (782.3)OV Order #: [id number] ID: [id number].DREW ORDERED BMPDRCHELI HAS A COPY TO GO TO Range: 2.5-4.9 :56 PROCRER tPROCRER 207 {mg/g_CRE} (Abnormal) Range: 0-200 PROUR 20.5 mg/dL (Abnormal) CREU 98.9 mg/dL (Normal) :56 PTHIN 63 pg/mL (Normal) Range: 14-72 :56 VITD 43.5 ng/mL (Normal) Range: 30.0-100.0 Comments: Vitamin D deficiency has been defined by the [place] ofMedicine and an Endocrine Society practice guideline as alevel of serum 25-OH vitamin D less than 20 ng/mL (1,2).The Endocrine Society went on to further define vitamin Dinsufficiency as a level between 21 and 29 ng/mL (2).1. IOM ([place] of Medicine). 2010. Dietary reference intakes for calcium and D. [place]: The National Academies Press.2. Chriss MF, Ez NC, Kilo MCCORMICK, et al. Evaluation, treatment, and prevention of vitamin D deficiency: an Endocrine Society clinical practice guideline. JCEM. 2010; 96(7):1911-30. [id number]-Uhg-[id number]:23 CMP Comments: STATRESULTS FAXED TO DR RUSSELL 03/24/12 VÍCTOR AZUL. GAP 9 (Normal) Range: 5-15 CO2 25.0 mmol/L (Normal) Range: 21.0-32.0 CL 108 mmol/L (Abnormal) Range: 98-107 K 3.9 mmol/L (Normal) Range: 3.5-5.1 NA 142 mmol/L (Normal) Range: 136-145 BIT 0.60 mg/dL (Normal) Range: 0.00-1.00 ALT 21 U/L (Normal) Range: 12-78 ALK 43 U/L (Abnormal) Range: 50-136 AST 19 U/L (Normal) Range: 15-37 CA 8.2 mg/dL (Abnormal) Range: 8.5-10.1 AG 1.3 {RATIO} (Normal) Range: 0.9-2.4 GLOB 2.7 g/dL (Normal) Range: 2.7-4.2 ALB 3.4 g/dL (Normal) Range: 3.4-5.0 TPROT 6.1 g/dL (Abnormal) Range: 6.4-8.2 BC 12.3 {RATIO} (Normal) Range: 10-20 GFRAA 58 mL/min (Abnormal) GFR 48 mL/min (Abnormal) CREAT 1.3 mg/dL (Abnormal) Range: 0.6-1.0 BUN 16 mg/dL (Normal) Range: 7-18 GLU 86 mg/dL (Normal) Range: 70-110 0-Lga-436147:23 CPK 154 U/L (Normal) Comments: STATRESULTS FAXED TO DR RUSSELL 03/24/12 VÍCTOR AZUL. Range: 26-192 95-Mgj-648732:53 ABDOMEN/PELVIS WITHOUT CONT Radiology Report See Note (Normal) Comments: PROCEDURE: CT ABDOMEN AND PELVIS WITHOUT CONTRAST REASON FOR EXAM: Female, 41 years old. Low back pain for a few days.Ashad previous kidney stone. Previous and hysterectomy. Ovariesstill present. Hypertension, history of kidney disease TECHNIQUE: Transaxial images were obtained from the dome of thediaphragmto the symphysis pubis without oral contrast, and without intravenouscontrast . Multiplanar coronal and sagittal images were reformatted. COMPARISON: July 23, 2007. FINDINGS:The visualized lung bases are unremarkable. Normal unenhanced liver. Normal gallbladder and extrah epatic biliarysystem. Normal unenhanced spleen. Normal pancreas. Normal bilateral adrenal glands. Normal size of the right kidney. There is no right renal mass. Thereareno right renal calculi. Ther e is no right hydronephrosis. Normalvisualized right ureter. Normal size of the left kidney. There is no left renal mass. There arenoleft renal calculi. There is no left hydronephrosis. Normal visu alizedleft ureter. Normal visualized stomach. Normal small intestine. Normal colon. Theappendix is not outlined. There are no inflammatory changes around thececal area. There is no demonstrated fannie toneal fluid. Normal abdominal aorta, a few calcified plaques.. Normal inferior venacava. Normal retroperitoneum. Normal urinary bladder. There is no pelvic mass lesion orlymphadenopathy.There is no pelvic fluid. The uterus is absent. The ovaries are notidentified. Normal abdominal wall except for a minimal 1 cm umbilical herniacontainingfat.. There are bulging disks with mild facet and ligamento us hypertrophy [id number] S1 with mild foraminal and spinal stenosis. The disk bases are notnarrowed.. IMPRESSION:No acute process of the abdomen and pelvis. Status post hysterectomy. Tiny umbilical katy ia. The appendix is not identified. No renal, ureteral, or bladder stones or obstruction. Bulging disks from L3 to S1 with mild foraminal and spinal stenosis. Signed:Nicholas William M.D.March 13, 2012 chasidy t 4:49:02 PM EDTElectronically Signed PF/PF Professional Interpretation Provided By: [facility] [employer] [facility], , To consult with a radiologist regarding thi s report, please call our [id number] line @ Dictated on 03/13/12 1559 by Nicholas William MDTranscribed on 03/13/121652 by ITS IMPORTSign by Nicholas William MD on 03/13/121652 Sign by: Nicholas William MD 91-Llw-393805:30 Urinalysis, Office ([id number]) UA - BILIRUBIN Negative (Normal) UA - BLOOD Negative (Normal) UA - GLUCOSE Negative (Normal) UA - KETONES Negative mg/dL (Normal) UA - LEUKOCYTE ESTERASE Negative (Normal) UA - NITRITE Negative (Normal) UA - PH 7.0 (Normal) UA - PROTEIN Negative mg/dL (Normal) UA - SPECIFIC GRAVITY 1.010 (Normal) URINE UROBILINGN SHANAE TIMED Normal mg/dL (Normal) :43 BMP Comments: URINE STARTED 01/12 @6AMURINE ENDED 01/13 @6AM GAP 7 (Normal) Range: 5-15 CO2 27.0 mmol/L (Normal) Range: 21.0-32.0 CL 106 mmol/L (Normal) Range: 98-107 K 3.5 mmol/L (Normal) Range: 3.5-5.1 NA 140 mmol/L (Normal) Range: 136-145 CA 8.0 mg/dL (Abnormal) Range: 8.5-10.1 BUN/CRE 12.5 {RATIO} (Normal) Range: 10-20 EST GFR - AA 64 mL/min (Normal) EST GFR 53 mL/min (Abnormal) CREAT,SERUM 1.2 mg/dL (Abnormal) Range: 0.6-1.0 BUN 15 mg/dL (Normal) Range: 7-18 GLU 89 mg/dL (Normal) Range: 70-110 :43 CREAT CLR 24H U Comments: URINE STARTED 01/12 @6AMURINE ENDED 01/13 @6AM CREAT CLEARANCE 70 ml/min (Abnormal) Range: 100-200 URINE CREAT 62.5 mg/dL (Normal) EST GFR 53 mL/min (Abnormal) SERUM CREAT 1.2 mg/dL (Abnormal) Range: 0.6-1.0 UR TOTAL VOLUME 1950 mL (Normal) UR COLLECT TIME 24.0 {HOURS} (Normal) :43 MICROALB:CRE UR MALB:CREAT 8.5 {mg/g_CRE} (Normal) MICROALBUMIN,UR 10.4 mg/L (Normal) UR CREAT 121.2 mg/dL (Normal) :43 PROU 24HR Comments: URINE STARTED 01/12 @6AMURINE ENDED 2/27 @6AM 24hr UR PROTEIN 170 {MG/24HR} (Abnormal) UR TOTAL VOLUME 1950 mL (Normal) URINE PROTEIN 8.7 mg/dL (Normal) UR COLLECT TIME 24.0 {HOURS} (Normal) 77-Smc-[id number]:36 COMP METABOLIC GAP 8 (Normal) Range: 5-15 CO2 29.0 mmol/L (Normal) Range: 21.0-32.0 CL 104 mmol/L (Normal) Range: 98-107 K 3.5 mmol/L (Normal) Range: 3.5-5.1 NA 141 mmol/L (Normal) Range: 136-145 T BILI 0.50 mg/dL (Normal) Range: 0.00-1.00 ALT 25 U/L (Normal) Range: 12-78 ALK P 46 U/L (Abnormal) Range: 50-136 AST 16 U/L (Normal) Range: 15-37 CA 8.2 mg/dL (Abnormal) Range: 8.5-10.1 A/G 1.2 {RATIO} (Normal) Range: 0.9-2.4 GLOB 3.2 g/dL (Normal) Range: 2.7-4.2 ALB 3.9 g/dL (Normal) Range: 3.4-5.0 T PROT 7.1 g/dL (Normal) Range: 6.4-8.2 BUN/CRE 13.3 {RATIO} (Normal) Range: 10-20 EST GFR - AA 64 mL/min (Normal) EST GFR 53 mL/min (Abnormal) CREAT,SERUM 1.2 mg/dL (Abnormal) Range: 0.6-1.0 BUN 16 mg/dL (Normal) Range: 7-18 GLU 103 mg/dL (Normal) Range: 70-110 31-Tfx-[id number]:27 CBCD,SMEAR DIFF RED CELL MORPH SeeNote {NORMAL} (Normal) Comments: Result: NORM C+C PLT EST SeeNote (Normal) Comments: Result: ADEQUATE MONOCYTE 3 % (Normal) Range: 0-10 LYMPH 9 % (Abnormal) Range: 19-41 BAND 3 % (Normal) Range: 0-5 SEGS 85 % (Abnormal) Range: 47-70 CELLS COUNTED 100 (Normal) ABSOLUTE NEUT 7.5 3/uL (Normal) Range: 2.0-7.7 PLT 251 K/mm3 (Normal) Range: 150-450 RDW 13.5 % (Normal) Range: 11.6-14.6 MCHC 34.9 g/dL (Normal) Range: 32-36 MCH 34.6 pg (Abnormal) Range: 27.0-32.0 MCV 99.2 fL (Abnormal) Range: 81-99 HCT 39.5 % (Normal) Range: 37-47 HGB 13.8 g/dL (Normal) Range: 12.0-16.0 RBC 3.98 {M/mm3} (Abnormal) Range: 4.2-5.4 WBC 8.9 K/mm3 (Normal) Range: 4.4-11.0 :27 COMP METABOLIC Comments: MG ADDED 01/01/12 GAP 8 (Normal) Range: 5-15 CO2 28.0 mmol/L (Normal) Range: 21.0-32.0 CL 104 mmol/L (Normal) Range: 98-107 K 3.0 mmol/L (Abnormal) Range: 3.5-5.1 NA 140 mmol/L (Normal) Range: 136-145 T BILI 0.40 mg/dL (Normal) Range: 0.00-1.00 ALT 20 U/L (Normal) Range: 12-78 ALK P 48 U/L (Abnormal) Range: 50-136 AST 15 U/L (Normal) Range: 15-37 CA 8.1 mg/dL (Abnormal) Range: 8.5-10.1 A/G 1.2 {RATIO} (Normal) Range: 0.9-2.4 GLOB 3.3 g/dL (Normal) Range: 2.7-4.2 ALB 3.9 g/dL (Normal) Range: 3.4-5.0 T PROT 7.2 g/dL (Normal) Range: 6.4-8.2 BUN/CRE 16.0 {RATIO} (Normal) Range: 10-20 EST GFR - AA 79 mL/min (Normal) EST GFR 65 mL/min (Normal) CREAT,SERUM 1.0 mg/dL (Normal) Range: 0.6-1.0 BUN 16 mg/dL (Normal) Range: 7-18 GLU 87 mg/dL (Normal) Range: 70-110 :27 MG 1.7 mg/dL (Normal) Comments: MG ADDED 01/01/12 Range: 1.5-2.2 67-Wfa-847701:10 CBCD,SMEAR DIFF ANISO 1+ (Normal) RED CELL MORPH N CHROM {NORMAL} (Normal) PLT EST SeeNote (Normal) Comments: Result: ADEQUATE MONOCYTE 3 % (Normal) Range: 0-10 LYMPH 13 % (Abnormal) Range: 19-41 SEGS 84 % (Abnormal) Range: 47-70 CELLS COUNTED 100 (Normal) ABSOLUTE NEUT 5.7 3/uL (Normal) Range: 2.0-7.7 PLT 243 K/mm3 (Normal) Range: 150-450 RDW 13.8 % (Normal) Range: 11.6-14.6 MCHC 34.8 g/dL (Normal) Range: 32-36 MCH 34.9 pg (Abnormal) Range: 27.0-32.0 MCV 100.3 fL (Abnormal) Range: 81-99 HCT 39.8 % (Normal) Range: 37-47 HGB 13.9 g/dL (Normal) Range: 12.0-16.0 RBC 3.97 {M/mm3} (Abnormal) Range: 4.2-5.4 WBC 7.1 K/mm3 (Normal) Range: 4.4-11.0 52-Ztf-894404:10 COMP METABOLIC GAP 4 (Abnormal) Range: 5-15 CO2 28.0 mmol/L (Normal) Range: 21.0-32.0 CL 104 mmol/L (Normal) Range: 98-107 K 3.5 mmol/L (Normal) Range: 3.5-5.1 NA 136 mmol/L (Normal) Range: 136-145 T BILI 0.70 mg/dL (Normal) Range: 0.00-1.00 ALT 32 U/L (Normal) Range: 12-78 ALK P 47 U/L (Abnormal) Range: 50-136 AST 26 U/L (Normal) Range: 15-37 CA 8.2 mg/dL (Abnormal) Range: 8.5-10.1 A/G 1.4 {RATIO} (Normal) Range: 0.9-2.4 GLOB 2.9 g/dL (Normal) Range: 2.7-4.2 ALB 4.0 g/dL (Normal) Range: 3.4-5.0 T PROT 6.9 g/dL (Normal) Range: 6.4-8.2 BUN/CRE 20.0 {RATIO} (Normal) Range: 10-20 EST GFR - AA 88 mL/min (Normal) CREAT,SERUM 0.9 mg/dL (Normal) Range: 0.6-1.0 EST GFR 73 mL/min (Normal) BUN 18 mg/dL (Normal) Range: 7-18 GLU 78 mg/dL (Normal) Range: 70-110 00-Xym-599765:10 MITOCHN AB 6650 <20.0 {Units} (Normal) Comments: appt 12-31-11 Range: 0.0-20.0 Comments: Negative 0.0 - 20.0 Equivocal 20.1 - 24.9 Positive >24.9 . Mitochondrial (M2) Antibodies are found in 90-96% of patients with primary biliary cirrhosis.Performed at: [facility] [place] [address] [id number] Director: Katelin Swift MD, Phone: [phone] 58-Vle-502987:14 Urinalysis, Office (72226) UA - NITRITE Negative (Normal) URINE UROBILINGN SHANAE Normal mg/dL TIMED (Normal) UA - PROTEIN Negative mg/dL (Normal) UA - PH 6.0 (Normal) UA - BLOOD Non Hemolyzed Trace (Normal) UA - SPECIFIC GRAVITY 1.015 (Normal) UA - KETONES Negative mg/dL (Normal) UA - BILIRUBIN Negative (Normal) UA - GLUCOSE Negative (Normal) ESTRADIOL 4515 69.1 pg/mL (Normal) Comments: Adult Female: Follicular phase 12.5 - 166.0 Ovulation phase 85.8 - 498.0 Luteal phase :46 43.8 - 211.0 Postmenopausal <6.0 - 54.7 1st trimester 215.0 - & gt;4300.0 Girls (1-10 years) 6.0 - 27.0Roche ECLIA methodologyPerformed at: [facility] [place] [address] [id number] Director: Katelin Swift MD, Phone: [phone] FSH 4309 4.3 m[iU]/mL Comments: Follicular phase 3.5 - 12.5 Ovulation phase 4.7 - 21.5 Luteal phase 1.7 - 7.7 :46 (Normal) Postmenopausal 25.8 - 134.8 TSH 1.69 {uIU/mL} Range: 0.358-3.74 :21 (Normal) :52 MONIQUE DIR SEMI-QL MONIQUE DIRECT 36 AU/mL (Normal) :52 ANTI-dsDNA AB 3 {IU/mL} (Normal) Comments: appt 09/10/11:52 C-REACTIVE PROT < 2.90 mg/L (Normal) Range: 0.0-3.0 Comments: C-Reactive Protein (CRP) provides useful information for thediagnosis, therapy and monitoring of inflammatory processesand associated diseases. For the evaluation of Relative Riskfor Cardiovascular Dise ase, a High Sensitivity CRP (HSCRP)should be ordered. :52 CBCD,SMEAR DIFF RED CELL MORPH SeeNote {NORMAL} (Normal) Comments: Result: NORM C+C PLT EST SeeNote (Normal) Comments: Result: ADEQUATE EOS 1 % (Normal) Range: 0-5 MONOCYTE 7 % (Normal) Range: 0-10 LYMPH 19 % (Normal) Range: 19-41 SEGS 73 % (Abnormal) Range: 47-70 CELLS COUNTED 100 (Normal) ABSOLUTE NEUT 3.5 3/uL (Normal) Range: 2.0-7.7 PLT 222 K/mm3 (Normal) Range: 150-450 RDW 13.2 % (Normal) Range: 11.6-14.6 MCHC 35.3 g/dL (Normal) Range: 32-36 MCH 35.6 pg (Abnormal) Range: 27.0-32.0 MCV 100.9 fL (Abnormal) Range: 81-99 HCT 36.3 % (Abnormal) Range: 37-47 HGB 12.8 g/dL (Normal) Range: 12.0-16.0 RBC 3.60 {M/mm3} (Abnormal) Range: 4.2-5.4 WBC 4.6 K/mm3 (Normal) Range: 4.4-11.0 :52 COMP METABOLIC GAP 8 (Normal) Range: 5-15 CO2 29.0 mmol/L (Normal) Range: 21.0-32.0 CL 102 mmol/L (Normal) Range: 98-107 K 4.0 mmol/L (Normal) Range: 3.5-5.1 NA 139 mmol/L (Normal) Range: 136-145 T BILI 0.50 mg/dL (Normal) Range: 0.00-1.00 ALT 18 U/L (Normal) Range: 12-78 ALK P 40 U/L (Abnormal) Range: 50-136 AST 11 U/L (Abnormal) Range: 15-37 CA 8.0 mg/dL (Abnormal) Range: 8.5-10.1 A/G 1.6 {RATIO} (Normal) Range: 0.9-2.4 GLOB 2.5 g/dL (Abnormal) Range: 2.7-4.2 ALB 4.0 g/dL (Normal) Range: 3.4-5.0 T PROT 6.5 g/dL (Normal) Range: 6.4-8.2 BUN/CRE 11.7 {RATIO} (Normal) Range: 10-20 EST GFR - AA 64 mL/min (Normal) EST GFR 53 mL/min (Abnormal) CREAT,SERUM 1.2 mg/dL (Abnormal) Range: 0.6-1.0 BUN 14 mg/dL (Normal) Range: 7-18 GLU 88 mg/dL (Normal) Range: 70-110 68-Spo-655430:52 COMPLETE UA MUCUS, URINE 0 SEEN {/hpf} (Normal) BACTERIA 0 SEEN {/hpf} (Normal) SQUAM EPI 0 SEEN {/hpf} (Normal) Range: 5-10 RBC-UA 0 SEEN {/hpf} (Normal) Range: 0-5 WBC 0 SEEN {/hpf} (Normal) Range: 0-5 LEUK ESTERASE SeeNote (Normal) Comments: Result: NEGATIVE OCCULT BLOOD-UR SeeNote (Normal) Comments: Result: NEGATIVE NITRITE UR SeeNote (Normal) Comments: Result: NEGATIVE UROBILI 0.2 EU/dl (Normal) Range: 0.2 - 1.0 PROT DIPSTX SeeNote (Normal) Comments: Result: NEGATIVE pH UR 7.0 (Normal) Range: 5.0-8.0 SP.GR. DIPSTX 1.010 (Normal) Range: 1.002-1.030 KETONE UR SeeNote mg/dL (Normal) Comments: Result: NEGATIVE BILIRUBIN URINE SeeNote (Normal) Comments: Result: NEGATIVE GLUCOSE, UR SeeNote (Normal) Comments: Result: NEGATIVE CLARITY CLEAR (Normal) COLOR YELLOW (Normal) :52 ESR SED RATE 4 mm/h (Normal) Range: 0-20 :52 TPO AB 6676 < 6 {IU/mL} (Normal) Range: 0-34 Comments: Performed at: [address] [id number] Director: Katelin Swift MD, Phone: [phone] :[phone] TSH 4.07 {uIU/mL} (Abnormal) Range: 0.358-3.74 :52 VIT D,25 08265 42.7 ng/mL (Normal) Comments: appt 09/10/11 Range: 32.0-100.0 Comments: Recent studies consider the lower limit of 32.0 ng/mL to akira threshold for optimal health.Dane CROWLEY. J Nutr. 2004;135(2):317-22. :52 VITAMIN B12 741 pg/mL (Normal) Range: 254-1320 Comments: There is a low frequency possibility that high titers ofintrinsic blocking antibodies may not be completely inactivated during the reaction pretreatment stepof this testing method. If test results are i n conflictwith the clinical diagnosis, patient should be testedfor the presence of intrinsic factor blocking antibodies. :50 FREE T3 2.3 pg/mL (Normal) Range: 2.18-3.98 :50 T4 FREE DIRECT 0.91 ng/dL (Normal) Range: 0.76-1.46 :50 TSH 4.10 {uIU/mL} (Abnormal) Range: 0.358-3.74 :11 COMP METABOLIC GAP 9 (Normal) Range: 5-15 CO2 28.0 mmol/L (Normal) Range: 21.0-32.0 CL 103 mmol/L (Normal) Range: 98-107 K 3.1 mmol/L (Abnormal) Range: 3.5-5.1 NA 140 mmol/L (Normal) Range: 136-145 T BILI 0.60 mg/dL (Normal) Range: 0.00-1.00 ALT 20 U/L (Normal) Range: 12-78 ALK P 40 U/L (Abnormal) Range: 50-136 AST 11 U/L (Abnormal) Range: 15-37 A/G 1.5 {RATIO} (Normal) Range: 0.9-2.4 CA 8.6 mg/dL (Normal) Range: 8.5-10.1 GLOB 2.7 g/dL (Normal) Range: 2.7-4.2 ALB 4.1 g/dL (Normal) Range: 3.4-5.0 T PROT 6.8 g/dL (Normal) Range: 6.4-8.2 BUN/CRE 10.0 {RATIO} (Normal) Range: 10-20 EST GFR - AA 64 mL/min (Normal) EST GFR 53 mL/min (Abnormal) CREAT,SERUM 1.2 mg/dL (Abnormal) Range: 0.6-1.0 BUN 12 mg/dL (Normal) Range: 7-18 GLU 69 mg/dL (Abnormal) Range: 70-110 18-Wpu-618046:11 CPK TOTAL 82 U/L (Normal) Range: 26-192 Comments: Please note: Revised Creatinine Kinase (CK) Reference ramge effective 11/15/10. :07 BMP Comments: Please Note: TROPONIN REFERENCE RANGE CHANGEEffective OCTOBER 17, 2009. CL 105 mmol/L (Normal) Range: 98-107 CO2 25.0 mmol/L (Normal) Range: 21.0-32.0 GAP 12 (Normal) Range: 5-15 K 3.7 mmol/L (Normal) Range: 3.5-5.1 NA 142 mmol/L (Normal) Range: 136-145 CA 8.7 mg/dL (Normal) Range: 8.5-10.1 BUN/CRE 11.7 {RATIO} (Normal) Range: 10-20 EST GFR 53 mL/min (Abnormal) EST GFR - AA 64 mL/min (Normal) CREAT,SERUM 1.2 mg/dL (Abnormal) Range: 0.6-1.0 BUN 14 mg/dL (Normal) Range: 7-18 GLU 72 mg/dL (Normal) Range: 70-110 0-Xdv-869553:07 CBCD ABSOLUTE NEUT 4.1 3/uL (Normal) Range: 2.0-7.7 BASO% 0.4 % (Normal) Range: 0-1 EO% 1.1 % (Normal) Range: 0-5 MONO% 8.5 % (Normal) Range: 0-10 LY% 9.7 % (Abnormal) Range: 19-41 NEUT% 80.3 % (Abnormal) Range: 47-70 MPV 7.9 fL (Normal) Range: 6.5-12.0 PLT 219 K/mm3 (Normal) Range: 150-450 MCHC 36.0 g/dL (Normal) Range: 32-36 RDW 12.7 % (Normal) Range: 11.6-14.6 MCH 35.2 pg (Abnormal) Range: 27.0-32.0 MCV 97.8 fL (Normal) Range: 81-99 HCT 35.3 % (Abnormal) Range: 37-47 HGB 12.7 g/dL (Normal) Range: 12.0-16.0 RBC 3.60 {M/mm3} (Abnormal) Range: 4.2-5.4 WBC 5.1 K/mm3 (Normal) Range: 4.4-11.0 :07 D-DIMER QUANT <200 ng/mL (Normal) Comments: NORMAL D-Dimer level indicates no DVT or PE. :07 TROPONIN-I < 0.02 ng/mL (Normal) Comments: Please Note: TROPONIN REFERENCE RANGE CHANGEEffective OCTOBER 17, 2009. Comments: TROPONIN-I EXPECTED VALUES <0.05 NEGATIVE 0.06 - 0.59 AT RISK OF RI > OR = 0.60 SUGGEST RI :00 CHEST, PA AND LATERAL Radiology Report See Note (Normal) Comments: CLINICAL:Female, 40 years old. Chest pain. X-RAY EXAMINATION - CHEST TECHNIQUE:PA and lateral views of the chest. COMPARISON:07/03/2009. FINDINGS: The lungs are expanded. There is no demonstrated pul monary parenchymalabnormality. There is no demonstrated pleural abnormality. The heart is normal in size and morphology. Normal mediastinum and ivy. Normal visualized pulmonary arteries. Normal visua lized aortic arch anddescending thoracic aorta. Normal visualized thoracic spine. IMPRESSION:Normal x-ray examination of the chest. Dictated on 12/20/10 1526 by Lupillo RaoTranscribed on 2005 by ITS IMPORTSign by Lupillo Rao on 12/20/102006 Sign by: Lupillo Rao 49-Smh-15090:48 UPPER GI SERIES ONLY Radiology Report See Note (Normal) Comments: CLINICAL:This is a 39-year-old female patient with history of chronic abdominalpain. EXAMINATION:AIR CONTRAST UPPER GI SERIES. TECHNIQUE:The patient ingested barium. An air contrast upper G I series was performed. COMPARISON:None. FINDINGS:The esophagus is unremarkable. There is no evidence of gastroesophagealreflux. No mass lesion is seen.The stomach and duodenum are unremarkable. There is no evide nce ofulceration. No mass lesion is present. IMPRESSION:Normal upper GI series. Dictated on 10/03/10850 by Rin Leoneranscribed on 10/03/10850 by INTERFACE,MCKESSONSign by Adrian Leone on 10/05/10917 Sign by: Oni Leone [birth year]2010 H.PYLORI [id number] < 0.9 U/mL Range: 0.0-0.8 8:09 (Normal) Comments: Negative <0.9 Indeterminate 0.9 - 1.0 Positive >1.0Performed at: [facility] [address] [id number] Director: Katelin Swift MD, Phone: [phone] Plan of Care Name Dates Details Instructions Hypertensive kidney disease : HTN/CAD Red Flags Indication: Hypertensive kidney disease Hypothyroidism (acquired) : Reviewed Lab Indication: Hypothyroidism (acquired) Nonsmoker : Eprescribed prescriptions (G8553) Indication: Nonsmoker Joint pain : Follow up if no improvement or if symptoms worsen Indication: Joint pain UTI symptoms : Eprescribed prescriptions (G8553) Indication: UTI symptoms Hypertensive kidney disease : HTN/CAD Red Flags Indication: Hypertensive kidney disease Hypertensive kidney disease : HTN/CAD Red Flags Indication: Hypertensive kidney disease BMI 25.0-25.9,adult : Follow up if no improvement or if symptoms worsen Indication: BMI 25.0-25.9,adult Insomnia, persistent : Reviewed Lab Indication: Insomnia, persistent Hypothyroidism (acquired) : Reviewed Lab Indication: Hypothyroidism (acquired) Nonsmoker : Follow up if no improvement or if symptoms worsen Indication: Nonsmoker BMI 25.0-25.9,adult : Eprescribed prescriptions (G8553) Indication: BMI 25.0-25.9,adult Chronic migraine without aura with status migrainosus, not intractable : Follow up in 2 weeks Indication: Chronic migraine without aura with status migrainosus, not intractable Chronic migraine without aura with status migrainosus, not intractable : Reviewed Diagnostic Tests Indication: Chronic migraine without aura with status migrainosus, not intractable Well woman exam with routine gynecological exam : Self breast exam Indication: Well woman exam with routine gynecological exam Well woman exam with routine gynecological exam : Safe sex Indication: Well woman exam with routine gynecological exam Well woman exam with routine gynecological exam : Self breast exam Indication: Well woman exam with routine gynecological exam Well woman exam with routine gynecological exam : *Well Female Maintenance (SMC) Indication: Well woman exam with routine gynecological exam Well woman exam with routine gynecological exam : Eprescribed prescriptions (G8553) Indication: Well woman exam with routine gynecological exam Hypertensive kidney disease : HTN/CAD Red Flags Indication: Hypertensive kidney disease Current nonsmoker (Renamed from Current non-smoker) : Eprescribed prescriptions (G8553) Indication: Current nonsmoker (Renamed from Current non-smoker) Acute asthma exacerbation (Renamed from Asthma with acute exacerbation) : *Antibiotic Usage Education - Female Indication: Acute asthma exacerbation (Renamed from Asthma with acute exacerbation) Acute asthma exacerbation (Renamed from Asthma with acute exacerbation) : Solu Medrol Injection/ Education Indication: Acute asthma exacerbation (Renamed from Asthma with acute exacerbation) BMI 25.0-25.9,adult : Eprescribed prescriptions (G8553) Indication: BMI 25.0-25.9,adult UTI (urinary tract infection), uncomplicated : Eprescribed prescriptions (G8553) Indication: UTI (urinary tract infection), uncomplicated UTI (urinary tract infection), uncomplicated : Bladder Infection: Brief Version *: uti Indication: UTI (urinary tract infection), uncomplicated Bilateral hip bursitis : Hip Bursa Indication: Bilateral hip bursitis Chronic kidney disease, stage III (moderate) : Follow up in 1 week Indication: Chronic kidney disease, stage III (moderate) Rhabdomyolysis (Renamed from Disease characterized by destruction of skeletal muscle) : Eprescribed prescriptions (G8553) Indication: Rhabdomyolysis (Renamed from Disease characterized by destruction of skeletal muscle) Rhabdomyolysis (Renamed from Disease characterized by destruction of skeletal muscle) : Eprescribed prescriptions (G8553) Indication: Rhabdomyolysis (Renamed from Disease characterized by destruction of skeletal muscle) Memory loss : Follow up if no improvement or if symptoms worsen Indication: Memory loss Well woman exam with routine gynecological exam : Self breast exam Indication: Well woman exam with routine gynecological exam Well woman exam with routine gynecological exam : *Colon Cancer Screening Indication: Well woman exam with routine gynecological exam Well woman exam with routine gynecological exam : *Well Female Maintenance (KF) Indication: Well woman exam with routine gynecological exam Well woman exam with routine gynecological exam : Pap/Pelvic/Bimanual/Rectal/Breast Exam was done. Indication: Well woman exam with routine gynecological exam Bronchitis : *URI Treatment Indication: Bronchitis Wheezing : *URI Symptoms Indication: Wheezing Bronchitis : *Antibiotic Usage Education - Female Indication: Bronchitis CKD (chronic kidney disease) : Follow up in 1 month Indication: CKD (chronic kidney disease) DIARRHEA : *Abd Pain Red Flags Indication: DIARRHEA DIARRHEA : Diarrhea instructions Indication: DIARRHEA Unspecified Diagnosis : Follow up in 2 weeks Indication: Unspecified Diagnosis Genital ulcer, female : Punch Biopsy without Epi Indication: Genital ulcer, female Anxiety : Follow up if no improvement or if symptoms worsen Indication: Anxiety Inflamed skin tag : Cryotherapy Indication: Inflamed skin tag Headache : Cluster Headaches: headache Indication: Headache Nausea : Follow up in 1 week Indication: Nausea Hypokalemia : Follow up in 1 month Indication: Hypokalemia Systemic lupus erythematosus : Follow up in 4 weeks Indication: Systemic lupus erythematosus Unspecified asthma with (acute) exacerbation : Continue Current Prescription(s) Indication: Unspecified asthma with (acute) exacerbation Planned Observations LIPID PANEL (76370)Indication: Hypercholesteremia On: 95-Nvj-012463:23 Request MICROALBUMIN 24 HOUR OR RANDOM (62396)Indication: Chronic kidney disease, stage III (moderate) On: 73-Dcx-804464:19 Request Comments: 24 hour urine for protein T3, FREE (TRIDOTHYRONINE) (52413)Indication: Hypothyroidism (acquired) On: 51-Vqm-212405:19 Request T4, FREE (THYROXINE) (60901)Indication: Hypothyroidism (acquired) On: :19 Request TSH (27269)Indication: Hypothyroidism (acquired) On: :17 Request Comments: do this tsh in mid to late december MICROALBUMIN 24 HOUR OR RANDOM (28935)Indication: IgA nephropathy, chronic On: :14 Request Comments: need 24 hour urine for total protein Urine Protein Electrophoresis (UPEP) (11043)Indication: Chronic kidney disease, stage III (moderate) On: :11 Request T3, FREE (TRIDOTHYRONINE) (84703)Indication: Abnormal TSH On: : Request T4, FREE (THYROXINE) (69029)Indication: Abnormal TSH On: : Request TSH (03624)Indication: Abnormal TSH On: 50-Jgp-866292: Request Anti-TPO Antibody (43743)Indication: Abnormal TSH On: : Request CREATININE BLOOD (52177)Indication: MRI of brain abnormal On: 89-Onv-01586:59 Request Anti-TPO Antibody (86184)Indication: Hypothyroidism (acquired) On: :49 Request T4, FREE (THYROXINE) (07288)Indication: Hypothyroidism (acquired) On: :49 Request T3, FREE (TRIDOTHYRONINE) (47031)Indication: Hypothyroidism (acquired) On: :49 Request TSH (00818)Indication: Hypothyroidism (acquired) On: :49 Request URINALYSIS, W/ MICRO (35769)Indication: Hypertensive kidney disease On: :49 Request MICROALBUMIN: CREATININE RATIO (44692) AND (60233)Indication: Hypertensive kidney disease On: :49 Request METABOLIC PANEL, COMPREHENSIVE (23853)Indication: Hypertensive kidney disease On: :49 Request CBC W/AUTO DIFF WBC (45454)Indication: Hypertensive kidney disease On: :49 Request LIPID PANEL (61758)Indication: Hypertensive kidney disease On: :49 Request MYCOPLAMA PNEUM AB IgG/IgM 367111 (46821)Indication: Cough On: 18-Qni-145791:41 Request TSH (91212)Indication: Hypothyroidism (acquired) On: 77-Sjj-359130:57 Request CALCIFIDIOL (37376) VIT D 25Indication: CKD (chronic kidney disease) On: :34 Request TSH (77251)Indication: Hypothyroidism (acquired) On: :34 Request METABOLIC PANEL, COMPREHENSIVE (81317)Indication: CKD (chronic kidney disease) On: :34 Request CBC with auto diff (31811)Indication: CKD (chronic kidney disease) On: :34 Request T3, FREE (TRIDOTHYRONINE) (64296)Indication: Hypothyroidism (acquired) On: :40 Request T4, FREE (THYROXINE) (53712)Indication: Hypothyroidism (acquired) On: :40 Request TSH (22800)Indication: Hypothyroidism (acquired) On: :40 Request Anti-TPO Antibody (24833)Indication: Hypothyroidism (acquired) On: :40 Request T3 UPTAKE (28528)Indication: Abnormal TSH On: 92-Ksx-987752:52 Request T4, TOTAL (93044)Indication: Abnormal TSH On: 22-Foz-896609:52 Request T4, FREE (THYROXINE) (00889)Indication: Abnormal TSH On: 69-Bbz-325861:52 Request TSH ([id number])Indication: Abnormal TSH On: 27-Jhm-322582:51 Request T4, FREE (THYROXINE) (13197)Indication: Abnormal TSH On: 36-Wgs-199857:25 Request T3, FREE (TRIDOTHYRONINE) (98720)Indication: Abnormal TSH On: 13-Phh-208422:24 Request MYOGLOBIN (77656)Indication: Rhabdomyolysis (Renamed from Disease characterized by destruction of skeletal muscle) On: 79-Zyj-066020:33 Request CPK TOTAL & ISOENZYMES (29615)Indication: Rhabdomyolysis (Renamed from Disease characterized by destruction of skeletal muscle) On: 07-Hvk-274556:32 Request FECAL OCCULT HGB ASSAY- tubes sent home (45954)Indication: Well woman exam with routine gynecological exam On: 56-Rwh-674207:12 Request OCCULT BLOOD FECES SCREEN- card done in office (98710)Indication: Well woman exam with routine gynecological exam On: 33-Jcm-038188:12 Request Thin prep Pap (28867)Indication: Well woman exam with routine gynecological exam On: 42-Thp-731517:12 Request MICROALBUMIN: CREATININE RATIO (74703) AND (01341)Indication: CKD (chronic kidney disease) On: 2-Dwj-122799:02 Request Metabolic Panel, Basic (25246)Indication: Rhabdomyolysis (Renamed from Disease characterized by destruction of skeletal muscle) On: 3-Iwb-577471:53 Request MYOGLOBIN (49066)Indication: Rhabdomyolysis (Renamed from Disease characterized by destruction of skeletal muscle) On: 16-Qzq-176963:04 Request CPK TOTAL & ISOENZYMES (57419)Indication: Rhabdomyolysis (Renamed from Disease characterized by destruction of skeletal muscle) On: 58-Gjk-045385:04 Request MRSA Culture ([id number])Indication: Decubitus ulcer of coccyx On: 00-Mxx-472499:40 Request HSV CULTURE SCREEN [id number] (68403)Indication: Genital ulcer, female On: 69-Vre-57005:55 Request Culture, Aerobic, Bacterial ID ([id number])Indication: Decubitus ulcer of coccyx On: 47-Jmx-10819:39 Request NuSwab STD (STD W/ Herpes) (02273)Indication: Genital ulcer, female On: 75-Unk-87398:36 Request Comments: intra vaginal area and lesion CULTURE, VAG/CX COMPREHENSIVE (92418)Indication: Genital ulcer, female On: 75-Kka-04143:44 Request CALCIUM SERUM (76451)Indication: Hypocalcemia On: 6-Iwp-488322:21 Request LACTATE (LACTIC ACID) (13225)Indication: Muscle pain On: :18 Request Comments: stat ZINC, BLOOD (35080)Indication: Muscle pain On: :17 Request Comments: stat MAGNESIUM (49760)Indication: Muscle pain On: :17 Request Comments: stat Metabolic Panel, Comprehensive (20273)Indication: Muscle pain On: :17 Request Comments: stat MYOGLOBIN (80130)Indication: Muscle pain On: :17 Request Comments: stat CPK TOTAL & ISOENZYMES (60693)Indication: Muscle pain On: :17 Request Comments: stat ASSAY, CARNITINE, SHANAE, EACH SPEC (43703)Indication: Muscle pain On: :14 Request OVA & PARASITE DIR SMEAR (02394)Indication: DIARRHEA On: : Request OCCULT BLOOD FECES SCREEN (82296)Indication: DIARRHEA On: : Request LEUKOCYTE COUNT, FECAL (43919)Indication: DIARRHEA On: : Request C-DIFFICILE, STOOL (91265)Indication: DIARRHEA On: : Request EDWARD CULTURE-STOOL (77689)Indication: DIARRHEA On: : Request Lyme Disease,Serum, Western Blot (22224)Indication: Neck pain on right side On: :07 Request Lyme Disease Antibody W/ Reflex (07058)Indication: Neck pain on right side On: 36-Hhh-248448:07 Request Herpes Simplex II Ag, Direct Fluorescent Ab (66595)Indication: Uncomplicated herpes simplex On: :05 Request Herpes Simplex I Ag, Direct Fluorescent Ab (08592)Indication: Uncomplicated herpes simplex On: 73-Bqt-533555:05 Request CBC with manual diff (93460)Indication: Essential hypertension On: 45-Kpi-689954:57 Request Metabolic Panel, Comprehensive (06502)Indication: Essential hypertension On: :15 Request Troponin I (81071)Indication: Chest pain On: :14 Request Comments: stat CPK MB FRACTION (23020)Indication: Chest pain On: 79-Axb-043460:14 Request Comments: stat CREATINE KINASE TOTAL (14323)Indication: Chest pain On: 04-Doz-206420:14 Request Comments: stat ANCA-P (ANTI NEUTROPHIL CYTOPLASMIC ANTIBODY)Indication: Memory loss On: : Request ANCA-C (ANTI NEUTROPHIL CYTOPLASMIC ANTIBODY)Indication: Memory loss On: 84-Wkr-344236:01 Request Metabolic Panel, Basic (11795)Indication: Edema, unspecified On: 9-Sqj-928173: Request Creatine Kinase Total (40788)Indication: Rhabdomyolysis (Renamed from Disease characterized by destruction of skeletal muscle) On: :27 Request Metabolic Panel, Comprehensive (25551)Indication: Rhabdomyolysis (Renamed from Disease characterized by destruction of skeletal muscle) On: :26 Request Metabolic Panel, Comprehensive (23516)Indication: Pruritic disorder On: 32-Pzu-146793:01 Request Potassium Serum (24187)Indication: Hypokalemia On: :47 Request Comments: STAT Calcium Serum (38583)Indication: Hypokalemia On: :47 Request Comments: STAT MAGNESIUM (32822)Indication: Hypokalemia On: :52 Request CBC with manual diff (39313)Indication: Fatigue On: 89-Jgg-042384:42 Request Metabolic Panel, Comprehensive (43216)Indication: Hypokalemia On: :41 Request ANTIMITOCHONDRIAL ANTIBODY (57699)Indication: Pruritic disorder On: 93-Sss-241869:52 Request METABOLIC PANEL, COMPREHENSIVE (26153)Indication: Pruritic disorder On: :47 Request CBC WITH MANUAL DIFF (06858)Indication: Pruritic disorder On: :47 Request CREATININE CLEARANCE (96705)Indication: Chronic kidney disease, stage III (moderate) On: 28-Lfj-597194:48 Request 24 hour urine for Protein (22619)Indication: Chronic kidney disease, stage III (moderate) On: :48 Request Metabolic Panel, Basic (05167)Indication: Chronic kidney disease, stage III (moderate) On: 72-Zoa-705966:36 Request MICROALBUMIN: CREATININE RATIO (26049) AND (44941)Indication: Chronic kidney disease, stage III (moderate) On: 30-Utx-244484:33 Request ESTRADIOL (74651)Indication: Fatigue On: 46-Fos-040933:58 Request TSH (THYROID STIMULATING HORMONE) (05900)Indication: Abnormal TSH On: 58-Oha-853038:19 Request Comments: check in 8 weeks TSH (98373)Indication: Abnormal TSH On: 32-Ofa-627564:48 Request Anti-TPO Antibody (34166)Indication: Abnormal TSH On: :48 Request DNA ANTIBODY-NATV/DBL ST (80050) test code 857939Ptstnohiqq: Fatigue On: Request Vitamin D Hydroxy (04601)Indication: Fatigue On: Request VITAMIN B-12 (CYANOCOBALAMIN) (64076)Indication: Fatigue On: Request URINALYSIS, W/ MICRO (89763)Indication: Fatigue On: Request METABOLIC PANEL, COMPREHENSIVE (55358)Indication: Fatigue On: Request CBC WITH MANUAL DIFF (84745)Indication: Fatigue On: Request MONIQUE (ANTINUCLEAR ANTIBODY) (85175)Indication: Fatigue On: Request C-REACTIVE PROTEIN (09992)Indication: Fatigue On: Request SED RATE ERYTHROCYTE (13067)Indication: Fatigue On: Request T4, FREE (THYROXINE) (11584)Indication: Abnormal TSH On: 30 Request T3, FREE (TRIDOTHYRONINE) (63126)Indication: Abnormal TSH On: 30 Request TSH ([id number])Indication: Abnormal TSH On: 30 Request Potassium Serum ([id number])Indication: Hypokalemia On: : Request Metabolic Panel, Comprehensive ([id number])Indication: Rhabdomyolysis (Renamed from Disease characterized by destruction of skeletal muscle) On: 19 Request Creatine Kinase Total ([id number])Indication: Rhabdomyolysis (Renamed from Disease characterized by destruction of skeletal muscle) On: :19 Request D-Dimer ([id number])Indication: Chest pain On: Request CBC (Auto) ([id number])Indication: Chest pain On: : Request Metabolic Panel, Basic ([id number])Indication: Chest pain On: Request CARDIAC ISOENZYMES ([id number])Indication: Chest pain On: [id number] Request HELICOBACTER PYLORI ANTIBODY ([id number])Indication: Abdominal pain, acute, generalized On: :55 Request Planned Procedures Spirometry ([id number])By: Gerry STRANGE, On: 10-Jun-2018 Intent Rosalinda Paris DO Comments: normal ELECTROCARDIOGRAM, COMPLETE (ECG) On: 10-Jun-2018 Intent ([id number])By: Rosalinda Garrett DO Comments: nsr no acute chg Rosalinda Garrett DO Radiology - Chest- PA and LatBy: On: 30-Oct-2017 Intent Rosalinda Garrett DO DORosalinda Breast Ultrasound - LeftBy: Gerry On: 02-Oct-2017 Intent Rosalinda STRANGEon DO, Rosalinda Spot Compression - LeftBy: Gerry On: 02-Oct-2017 Intent DORosalinda Gerry DO, Rosalinda Spot Compression - RightBy: Gerry On: 02-Oct-2017 Intent Rosalinda STRANGE DO, Kathleen Comments: if needed Breast Ultrasound - RightBy: On: 02-Oct-2017 Intent Rosalinda Garrett DO, DO, Comments: if needed Rosalinda SCREENING DIGITAL TOMOSYNTHESIS OF On: 02-Oct-2017 Intent BREAST ([id number])By: Rosalinda Garrett DO, DO, Kathleen ATTENDED SLEEP STUDY ([id number])By: On: 20-Jun-2017 Intent Lisa CONDE Jolly SCREENING DIGITAL TOMOSYNTHESIS OF On: 11-Apr-2017 Intent BREAST ([id number])By: Rosalinda Garrett DO, DO, Kathleen MRA OF BRAIN ([id number])By: Gerry STRANGE, On: 19-Mar-2017 Intent Rosalinda Paris DO MRI BRAIN W/ CONTRAST ([id number])By: On: 19-Mar-2017 Intent Rosalinda Garrett DO, DO, Kathleen ELECTROCARDIOGRAM, COMPLETE (ECG) On: 19-Mar-2017 Intent ([id number])By: Rosalinda Garrett DO Comments: nsr no acute chg Rosalinda Garrett DO Spirometry ([id number])By: Gerry STRANGE, On: 19-Mar-2017 Intent Rosalinda Paris DO Comments: see scanned report Ultrasound - PelvisBy: Gerry STRANGE, On: 20-Feb-2017 Intent Rosalinda Paris DO Spirometry ([id number])By: Gerry STRANGE, On: 05-Dec-2016 Intent Rosalinda Paris DO Comments: normal Aerosol Treatment ([id number])By: On: 05-Dec-2016 Intent Rosalinda Garrett DO, DO, Comments: Albuterol 0.83% given via nebulizer machine. Pt tolerated well.less noise and more a/e Rosalinda Solu- Medrol Injection, 125mg On: 05-Dec-2016 Intent ([id number])By: Rosalinda Garrett DO Comments: 2 ml given im rt glut lot [id number] exp 05/05 Rosalinda Garrett DO Radiology - Cervical SpineBy: On: 26-Mar-2016 Intent Hillary Russell MD Phenergan Injection, up to 50 mg On: 26-Mar-2016 Intent ([id number])By: Hillary Russell MD Toradol Injection, 30 mg On: 26-Mar-2016 Intent ([id number])By: Hillary Russell MD Kenalog Injection, 10 mgm On: 12-Feb-2016 Intent ([id number])By: Hillary Russell MD NEUROPSYCHOLOGICAL TESTING On: 29-Nov-2015 Intent ([id number])By: Hillary Russell MD MRI - Brain (IV Contrast On: 31-Oct-2015 Intent Needed)By: Hillary Russell MD Ultrasound - RenalBy: Lisa CONDE, On: 05-Sep-2015 Intent Amy Joseph Eprescribed prescriptions On: 31-Mar-2014 Intent ([id number])By: Amy Gonzalez CNP MAMMOGRAM, SCREENING, BOTH BREASTS On: 03-Feb-2014 Intent ([id number])By: Hillary Russell MD Radiology - ChestBy: Drew MARTÍNEZ, On: 01-Feb-2014 Intent Hillary Peng Aerosol Treatment ([id number])By: Lisa On: 25-Jan-2014 Intent Amy CONDE Ultrasound - Abdomen Complete & On: 24-Nov-2013 Intent PelvisBy: Amy Gonzalez CNP Eprescribed prescriptions On: 17-Aug-2013 Intent ([id number])By: Long RELAY MOTORMAN, Marisela L INFUSION, NORMAL SALINE SOLUTION , On: 18-Jun-2013 Intent 1000 CC (Special Coverage Comments: Normal Saline, Lot #[id number], exp. 10/01 1 ltr infused in L AC without difficulty, Instructions Apply. See MCM: 2049) ([id number])By: Amy Gonzalez CNP HYDRATION IV INFUSION, INIT On: 18-Jun-2013 Intent ([id number])By: Amy Gonzalez CNP Comments: IV initiated in: R ACwith 22 gaugenumber of attempts: x1 attempt without difficultyTolerated well: MAMTA Elizabeth Eprescribed prescriptions On: 16-Mar-2013 Intent ([id number])By: Marisela Mata LPN Eprescribed prescriptions On: 25-Jan-2013 Intent ([id number])By: Marisela Mata LPN Eprescribed prescriptions On: 15-Jan-2013 Intent ([id number])By: Marisela Mata LPN Toradol Injection, 30 mg On: 24-Nov-2012 Intent ([id number])By: Hillary Russell MD Comments: Lot #[id number]-right hipDose- 30mlgiven by: Didier Farrar LPN Eprescribed prescriptions On: 24-Nov-2012 Intent ([id number])By: Marisela Mata LPN EKG ([id number])By: Isac OLEARY, On: 09-Sep-2012 Intent Saida Comments: sinus rhythm no changes compared to 03-24 Pulse Oximetry ([id number])By: Isac On: 09-Sep-2012 Intent Saida OLEARY Comments: 99% on room air MRA - brainBy: Hillary Russell MD On: 14-Aug-2012 Intent MRI - Brain (IV Contrast On: 14-Aug-2012 Intent Needed)By: Hillary Russell MD Eprescribed prescriptions On: 14-Aug-2012 Intent ([id number])By: Liberty Choi LPN TDAP VACCINE >7 IM ([id number])By: On: 25-Jun-2012 Intent Hillary Russell MD Comments: Lot #[id number]-left deltoidgiven by: Didier Farrar LPN MAMMOGRAM, SCREENING, BOTH BREASTS On: 25-Jun-2012 Intent ([id number])By: Hillary Russell MD EKG ([id number])By: Hillary Russell MD On: 24-Mar-2012 Intent Comments: see scanned document of test done to see results reviewed today with patient Pulse Oximetry ([id number])By: Lupillo, On: 24-Mar-[address] - Abdomen & Pelvis Stone On: 13-Mar-2012 Intent ProtocolBy: Amy Gonzalez CNP Nerve ConductionBy: Isac OLEARY, On: 06-Jan-2012 Intent Saida EMGBy: Saida Chau LPN On: 06-Jan-2012 Intent Solu -Medrol Injection, 125 mg On: 03-Jan-2012 Intent ([id number])By: Saida Chau LPN Comments: Lot #[id number]-right hipDose- 125 mggiven by: Didier Farrar LPN Radiology - ChestBy: Drew MARTÍNEZ, On: 20-Dec-2010 Intent Hillary Peng Pulse Oximetry ([id number])By: Lupillo On: 20-Dec-2010 Intent JAMAR EKG ([id number])By: JAMAR Wesley On: 20-Dec-2010 Intent UGI (With air contrast if On: 27-Sep-2010 Intent necessary)By: Hillary Russell MD Planned Medications INFUSION, NORMAL SALINE SOLUTION , 1000 CC Ordered: 18-Jun-2013 Pending Amy Gonzalez CNP INJECTION, KETOROLAC TROMETHAMINE, PER 15 MG Ordered: 24-Nov-2012 Pending Hillary Russell MD INJECTION, KETOROLAC TROMETHAMINE, PER 15 MG Ordered: 26-Mar-2016 Pending Hillary Russell MD INJECTION, METHYLPREDNISOLONE SODIUM SUCCINATE, UP TO 125 MG Ordered: 03-Jan-2012 Pending Saida Chau LPN INJECTION, METHYLPREDNISOLONE SODIUM SUCCINATE, UP TO 125 MG Ordered: 05-Dec-2016 Pending Rosalinda Garrett DO DO, Rosalinda INJECTION, TRIAMCINOLONE ACETONIDE, NOT OTHERWISE SPECIFIED, 10 MG Ordered: 12-Feb-2016 Pending Hillary Russell MD Phenergan 50 MG/ML Injection Solution Ordered: 26-Mar-2016 Pending Hillary Russell MD Instructions Name Dates Details Nonsmoker : How to access health information online Indication: Nonsmoker Nonsmoker : How to access health information online - Detail Indication: Nonsmoker Nonsmoker : Patient Instructions Indication: Nonsmoker UTI symptoms : How to access health information online Indication: UTI symptoms UTI symptoms : How to access health information online - Detail Indication: UTI symptoms UTI symptoms : Patient Instructions Indication: UTI symptoms Nonsmoker : How to access health information online Indication: Nonsmoker Nonsmoker : Patient Instructions Indication: Nonsmoker Nonsmoker : How to access health information online Indication: Nonsmoker Nonsmoker : How to access health information online - Detail Indication: Nonsmoker Nonsmoker : Patient Instructions Indication: Nonsmoker Hypothyroidism (acquired) : Patient Instructions Indication: Hypothyroidism (acquired) Hypokalemia : DISCONTINUED - METABOLIC PANEL, BASIC ([id number]) Indication: Hypokalemia BMI 25.0-25.9,adult : How to access health information online Indication: BMI 25.0-25.9,adult BMI 25.0-25.9,adult : How to access health information online - Detail Indication: BMI 25.0-25.9,adult BMI 25.0-25.9,adult : Patient Instructions Indication: BMI 25.0-25.9,adult Well woman exam with routine gynecological exam : How to access health information online Indication: Well woman exam with routine gynecological exam Well woman exam with routine gynecological exam : How to access health information online - Detail Indication: Well woman exam with routine gynecological exam Well woman exam with routine gynecological exam : Patient Instructions Indication: Well woman exam with routine gynecological exam Current nonsmoker (Renamed from Current non-smoker) : How to access health information online Indication: Current nonsmoker (Renamed from Current non-smoker) Current nonsmoker (Renamed from Current non-smoker) : How to access health information online - Detail Indication: Current nonsmoker (Renamed from Current non-smoker) Current nonsmoker (Renamed from Current non-smoker) : Patient Instructions Indication: Current nonsmoker (Renamed from Current non-smoker) Current nonsmoker (Renamed from Current non-smoker) : How to access health information online Indication: Current nonsmoker (Renamed from Current non-smoker) Current nonsmoker (Renamed from Current non-smoker) : How to access health information online - Detail Indication: Current nonsmoker (Renamed from Current non-smoker) Current nonsmoker (Renamed from Current non-smoker) : Patient Instructions Indication: Current nonsmoker (Renamed from Current non-smoker) Current nonsmoker (Renamed from Current non-smoker) : How to access health information online Indication: Current nonsmoker (Renamed from Current non-smoker) Current nonsmoker (Renamed from Current non-smoker) : How to access health information online - Detail Indication: Current nonsmoker (Renamed from Current non-smoker) Current nonsmoker (Renamed from Current non-smoker) : Patient Instructions Indication: Current nonsmoker (Renamed from Current non-smoker) BMI 25.0-25.9,adult : How to access health information online Indication: BMI 25.0-25.9,adult BMI 25.0-25.9,adult : How to access health information online - Detail Indication: BMI 25.0-25.9,adult BMI 25.0-25.9,adult : Patient Instructions Indication: BMI 25.0-25.9,adult Headache : How to access health information online Indication: Headache Headache : How to access health information online - Detail Indication: Headache Headache : Patient Instructions Indication: Headache UTI (urinary tract infection), uncomplicated : How to access health information online Indication: UTI (urinary tract infection), uncomplicated UTI (urinary tract infection), uncomplicated : How to access health information online - Detail Indication: UTI (urinary tract infection), uncomplicated UTI (urinary tract infection), uncomplicated : Patient Instructions Indication: UTI (urinary tract infection), uncomplicated Palpitation : How to access health information online Indication: Palpitation Palpitation : How to access health information online - Detail Indication: Palpitation Palpitation : Patient Instructions Indication: Palpitation Edema, unspecified : How to access health information online Indication: Edema, unspecified Edema, unspecified : How to access health information online - Detail Indication: Edema, unspecified Edema, unspecified : Patient Instructions Indication: Edema, unspecified Depressive disorder : How to access health information online Indication: Depressive disorder Depressive disorder : How to access health information online - Detail Indication: Depressive disorder Depressive disorder : Patient Instructions Indication: Depressive disorder Rhabdomyolysis (Renamed from Disease characterized by destruction of skeletal muscle) : How to access health information online - Detail Indication: Rhabdomyolysis (Renamed from Disease characterized by destruction of skeletal muscle) Rhabdomyolysis (Renamed from Disease characterized by destruction of skeletal muscle) : Patient Instructions Indication: Rhabdomyolysis (Renamed from Disease characterized by destruction of skeletal muscle) Rhabdomyolysis (Renamed from Disease characterized by destruction of skeletal muscle) : How to access health information online Indication: Rhabdomyolysis (Renamed from Disease characterized by destruction of skeletal muscle) Rhabdomyolysis (Renamed from Disease characterized by destruction of skeletal muscle) : How to access health information online - Detail Indication: Rhabdomyolysis (Renamed from Disease characterized by destruction of skeletal muscle) Rhabdomyolysis (Renamed from Disease characterized by destruction of skeletal muscle) : Patient Instructions Indication: Rhabdomyolysis (Renamed from Disease characterized by destruction of skeletal muscle) Rhabdomyolysis (Renamed from Disease characterized by destruction of skeletal muscle) : How to access health information online Indication: Rhabdomyolysis (Renamed from Disease characterized by destruction of skeletal muscle) Rhabdomyolysis (Renamed from Disease characterized by destruction of skeletal muscle) : How to access health information online Indication: Rhabdomyolysis (Renamed from Disease characterized by destruction of skeletal muscle) Rhabdomyolysis (Renamed from Disease characterized by destruction of skeletal muscle) : How to access health information online - Detail Indication: Rhabdomyolysis (Renamed from Disease characterized by destruction of skeletal muscle) Rhabdomyolysis (Renamed from Disease characterized by destruction of skeletal muscle) : Patient Instructions Indication: Rhabdomyolysis (Renamed from Disease characterized by destruction of skeletal muscle) Memory loss : Patient Instructions Indication: Memory loss Laceration : Patient Instructions Indication: Laceration Abdominal pain : Patient Instructions Indication: Abdominal pain Physical exam, routine : Patient Instructions Indication: Physical exam, routine Genital ulcer, female : Patient Instructions Indication: Genital ulcer, female Uncomplicated herpes simplex : Patient Instructions Indication: Uncomplicated herpes simplex Unspecified Diagnosis : Patient Instructions Indication: Unspecified Diagnosis Spasm of cervical paraspinous muscle : Patient Instructions Indication: Spasm of cervical paraspinous muscle Anxiety : Patient Instructions Indication: Anxiety Hypertensive kidney disease : Patient Instructions Indication: Hypertensive kidney disease Encounters Annotation/Addendum On: 22-Sep-2018 12:25 Encounter Diagnosis: Herpes End: 22-Sep-2018 12:29 [facility] Phone Encounter On: 16-Jul-2018 15:21 Encounter Diagnosis: Hypercholesteremia End: 16-Jul-2018 15:26 [facility] Office Visit On: 10-Jun-2018 13:50 Encounter Reason: Follow up for chronic medical issues - The patient feels well with minor complaints, has good energy level and is sleeping well. Patient has been compliant with instructions. Current medication use: no End: 10-Jun-2018 18:04 side effects and compliant with dosing regimen. Patient sleeps 6 hours per night. Nutrition: balanced diet and no supplemental vitamins & iron. The medical issues the patient is following up for inc lude All identified problems below, depression (anxiety), kidney problems and other., [ADDITIONAL REASON] Follow up tests - Date: (May 2018). Encounter Diagnosis: Nonsmoker, Herpes, BMI 26.0-26.9,adult, Joint pain, Hypothyroidism (acquired), Rheumatoid arthritis, Asthma, Hypertensive kidney disease, Mild degeneration of cervical intervertebral disc, Chronic kidney disease, stage III (moderate), Systemic lupus erythematosus (710.0) [facility] Office Visit On: 27-May-2018 14:10 Encounter Reason: UTI - The urinary symptoms are described as urgency and flank pain. The symptoms have been occurring for 2 days., [ADDITIONAL REASON] Nausea - Note for Nausea: Has nausea and not feeling well. , End: 27-May-2018 14:47 [ADDITIONAL REASON] Joint Pain - Note for Joint pain: Having joint pain and gerneral malaise, worried about what it may be. Was recently i n sun at [employer]. Has underlying autoimmune followed by Dr. Newsome rheum and on plaquenil. Encounter Diagnosis: UTI symptoms, Nonsmoker, BMI 26.0-26.9,adult, Nausea, Joint pain, Migraine [facility] Office Visit On: 30-Oct-2017 13:07 Encounter Reason: Follow up for chronic medical issues - The patient feels well with minor complaints, has good energy level and is sleeping well. Patient has been compliant with instructions. Current medication use: no End: 31-Oct-2017 8:58 side effects and compliant with dosing regimen. Patient sleeps 6 hours per night. Nutrition: balanced diet and no supplemental vitamins & iron. The medical issues the patient is following up for inc lude All identified problems below, depression (anxiety), kidney problems and other.Encounter Diagnosis: BMI 26.0-26.9,adult, Nonsmoker, Bronchitis, Cough, Hypothyroidism (acquired), Hypertensive kidney disease, Chronic kidney disease, stage III (moderate), IgA nephropathy, chronic, Rheumatoid arthritis [facility] Office Visit On: 02-Oct-2017 14:19 Encounter Diagnosis: Breast lump in upper inner quadrant End: 02-Oct-2017 14:27 [facility] Office Visit On: 02-Oct-2017 13:29 Encounter Reason: Breast Mass - No changes in management were made at the last visit. Symptoms include breast tenderness. The patient complains of mass(es) in the left areola and left upper inner quadrant. The patient de End: 02-Oct-2017 14:02 scribes the mass(es) as tender.Encounter Diagnosis: BMI 26.0-26.9,adult, Nonsmoker, Abnormal TSH, Therapeutic drug monitoring, Hypothyroidism (acquired), Breast lump in upper inner quadrant, Encounter for screening mammogram for breast cancer (Renamed from Encounter for screening mammogram for malignant neoplasm of breast) [facility] Phone Encounter On: 12-Aug-2017 13:25 Encounter Diagnosis: Abnormal TSH End: 12-Aug-2017 13:27 [facility] Office Visit On: 20-Jun-2017 13:32 Encounter Reason: Follow up tests - Date: (06/02).Encounter Diagnosis: Nonsmoker, BMI 25.0-25.9,adult, Hypothyroidism (acquired), Insomnia, persistent End: 20-Jun-2017 14:26 [facility] Office Visit On: 18-Jun-2017 10:35 Encounter Reason: Eye Pain - The eye pain has been occurring for days. Note for Eye pain: swelling in both eyes and not feeling well last pill given diazem from Dr. Garrett has helpedEncounter Diagnosis: BMI 25.0-25.9,adult, Nonsmoker, End: 18-Jun-2017 11:25 Eye swelling, bilateral, Headache, Hypokalemia (276.8), Bilateral hip pain [facility] Office Visit On: 11-Apr-2017 13:45 Encounter Reason: Well Women Exam - The patient feels well with minor complaints (getting bark back that she had when she had pneumonia. ), has decreased energy level and is sleeping poorly (sometimes ok). Pap smear: markie End: 11-Apr-2017 15:04 e of last pap: (2013). Contraceptive history: The patient is not using any method of contraception at this time. Patient exercises none (physically cant at this time). The patient's libido is decreased. The patient reports that she does not perform monthly breast self exam. Calcium intake includes 1200 mg daily supplment (multivitamin). Previous evaluations: hysterectomy. The patient denies the use of oral contraceptives or hormone replacement therapy. Menstruation: Last menstrual period date: (2008, hysterectomy)., [ADDITIONAL REASON] Follow up tests - Diagnostic tests include other (mri/mra). Encounter Diagnosis: Well woman exam with routine gynecological exam, Encounter for screening mammogram for breast cancer (Renamed from Encounter for screening mammogram for malignant neoplasm of breast), BMI 25.0-25.9,adult, Cough, Nonsmoker, Bronchitis, Chronic migraine without aura with status migrainosus, not intractable, Renal insufficiency, Abnormal TSH [facility] Phone Encounter On: 10-Apr-2017 8:52 Encounter Diagnosis: MRI of brain abnormal End: 10-Apr-2017 9:05 [facility] Phone Encounter On: 24-Mar-2017 13:36 Encounter Diagnosis: Long-term use of Plaquenil End: 24-Mar-2017 13:38 [facility] Office Visit On: 19-Mar-2017 13:17 Encounter Reason: Follow up for chronic medical issues - The patient feels well with minor complaints, has good energy level and is sleeping poorly. Patient has been compliant with instructions. Current medication use: n End: 19-Mar-2017 16:49 o side effects and compliant with dosing regimen. Patient sleeps 6 hours per night. Nutrition: balanced diet and supplemental vitamins. The medical issues the patient is following up for include All dayday ntified problems below, asthma and high blood pressure. blood pressure range :.Encounter Diagnosis: BMI 25.0-25.9,adult, Current nonsmoker (Renamed from Current non- smoker), Hypertensive kidney disease, Mild degeneration of cervical intervertebral disc, Depressive disorder, Asthma, Chronic kidney disease, stage III (moderate), Hypothyroidism (acquired), Systemic lupus erythematosus (710.0), Rheumatoid arthritis, Vertigo, Chronic migraine without aura with status migrainosus, not intractable, MRI of brain abnormal, Pupils of different size [facility] Office Visit On: 20-Feb-2017 14:12 Encounter Reason: Shingles - The onset of the shingles has been sudden and has been occurring in a persistent pattern for 2 days. The course has been constant. The shingles is characterized as red, pustular and raised ab End: 20-Feb-2017 14:58 ove the skin. The rash was first seen on the genital area. The rash spread to the genital area.Encounter Diagnosis: BMI 25.0-25.9,adult, Current nonsmoker (Renamed from Current non-smoker), Uncomplicated herpes simplex, Pelvic pain in female [facility] Office Visit On: 13-Dec-2016 13:14 Encounter Reason: Cough - Symptoms include cough, chills and sore throat (I think it is from the cough). Cough onset was 5 day(s) ago (I had a bad lupus flare wed and it started with that and I think I gave myself a hernia).Encounter Diagnosis: End: 13-Dec-2016 13:47 BMI 25.0-25.9,adult, Current nonsmoker (Renamed from Current non-smoker), Acute asthma exacerbation (Renamed from Asthma with acute exacerbation), Cough, Fever and chills, Bronchitis [facility] Office Visit On: 05-Dec-2016 14:13 Encounter Reason: Upper Respiratory Infection (URI) - No changes in management were made at the last visit. Symptoms include nasal congestion, runny nose, productive cough and wheezing. Onset was sudden 1 week(s) ago. Th End: 05-Dec-2016 15:27 e symptoms occur constantly. The patient describes this as moderate in severity and worsening.Encounter Diagnosis: Current nonsmoker (Renamed from Current non- smoker), BMI 25.0-25.9,adult, Cough, Acute asthma exacerbation (Renamed from Asthma with acute exacerbation), Fever and chills, Acute bronchitis, unspecified organism [facility] Office Visit On: 26-Mar-2016 13:05 Encounter Diagnosis: Headache End: 26-Mar-2016 13:06 [facility] Office Visit On: 26-Mar-2016 8:20 Encounter Diagnosis: Headache, Current nonsmoker (Renamed from Current non-smoker), Neck pain on right side, Hematuria End: 26-Mar-2016 8:59 [facility] Office Visit On: 21-Mar-2016 13:09 Encounter Reason: Headache - No changes in management were made at the last visit. Symptoms include typical headache features and nausea, while symptoms do not include vomiting. The patient describes the pain as aching., End: 21-Mar-2016 13:39 [ADDITIONAL REASON] Urinary Frequency - No changes in management were made at the last visit. Symptoms include urinary frequency and low back pain. Onset was sudden. Encounter Diagnosis: UTI (urinary tract infection), uncomplicated, Nausea, Acute intractable headache, unspecified headache type, Chills, Hematuria, microscopic [facility] Office Visit On: 23-Feb-2016 13:28 Encounter Reason: Follow up ER - Reason for hospitalization note: (palpatations ). Patient has been compliant with instructions. Current medication use: no side effects, compliant with dosing regimen and considered effec End: 23-Feb-2016 14:37 tive by patient. The patient feels well with minor complaints and has decreased energy level. Patient sleeps 6 hours per night. Impact of disease: emotional impact-mild. Nutrition: balanced diet and supplemental vitamins.Encounter Diagnosis: Palpitation, Current nonsmoker (Renamed from Current non-smoker) [facility] Annotation/Addendum On: 14-Feb-2016 11:50 Encounter Diagnosis: Hypothyroidism (acquired) End: 15-Feb-2016 6:04 [facility] Office Visit On: 12-Feb-2016 15:07 Encounter Diagnosis: Edema, unspecified, Current nonsmoker (Renamed from Current non-smoker), Essential hypertension, Fatigue (780.79), Hypertensive kidney disease, Headache, Mild degeneration of cervical intervertebral disc, Occasional tremors, End: 12-Feb-2016 16:02 Rheumatoid arthritis, Spasm of cervical paraspinous muscle, Chronic kidney disease, stage III (moderate), Anxiety, Hypothyroidism (acquired), Sleep disorder (780.50), Raynaud's syndrome (443.0), Depressive disorder, Abnormal MRI, Asthma, Allergic rhinitis, Anemia, Nephritis, Systemic lupus erythematosus (710.0), Rhabdomyolysis (Renamed from Disease characterized by destruction of skeletal muscle), Nausea, Memory loss (780.93), Bilateral hip bursitis [facility] Phone Encounter On: 29-Nov-2015 11:04 Encounter Diagnosis: Depressive disorder End: 29-Nov-2015 11:10 [facility] Phone Encounter On: 31-Oct-2015 14:49 Encounter Diagnosis: Abnormal MRI End: 31-Oct-2015 14:57 [facility] Office Visit On: 19-Oct-2015 12:19 Encounter Reason: Follow up acute care visit - The patient does not feel well and worsening. Patient has been compliant with instructions. Current medication use: no side effects and compliant with dosing regimen. Patien End: 31-Oct-2015 17:40 t sleeps 7 hours per night. Impact of disease: emotional impact-moderate. Nutrition: balanced diet and supplemental vitamins. The medical issues the patient is following up for include depression and other (anxiety ).Encounter Diagnosis: Depressive disorder, Current nonsmoker (Renamed from Current non-smoker) [facility] Lab Order On: 20-Sep-2015 16:19 Encounter Diagnosis: UTI symptoms End: 20-Sep-2015 16:20 [facility] Annotation/Addendum On: 11-Sep-2015 13:45 Encounter Diagnosis: UTI (urinary tract infection), uncomplicated End: 11-Sep-2015 13:52 [facility] Office Visit On: 05-Sep-2015 12:43 Encounter Reason: Flank Pain - This condition occurred without any known injury. The injury involved the right flank. Symptoms include flank pain and abdominal pain. The pain is located in the right flank. The pain radia End: 05-Sep-2015 13:40 terence to the abdomen and lower back. The patient describes the pain as aching. The symptoms occur intermittently. The patient describes symptoms as unchanged. 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 Encounter Diagnosis: Flank pain, Nephritis, KIDNEY DISEASE, CHRONIC, STAGE III (585.3) [facility] Office Visit On: 26-Jun-2015 14:57 Encounter Diagnosis: Rhabdomyolysis (Renamed from Disease characterized by destruction of skeletal muscle), Memory loss (780.93), Allergic Rhinitis(477.9), End: 26-Jun-2015 15:38 Well Women Exam (V72.31)( Pap, Mammo, Routine Female and Dexa) (Renamed from Well Woman V72.31 (p,m,d)), Raynaud's syndrome (443.0), Hypocalcemia (275.41), Asthma (493.11), Degenerative Disc Disease - Cervical Spine (722.4), Anxiety (300.00), Anemia (285.9), Hypertensive Renal Dx. (403.90), TREMOR, NOS (781.0), Sleep disorder (780.50), Solitary stealing, Depressive Disorder (311.), Arthritis, rheumatoid (714.0), Headache (784.0), Hypothyroidism (acquired), KIDNEY DISEASE, CHRONIC, STAGE III (585.3), Cervical Spasm (728.85), CKD (chronic kidney disease) (585.9), Fatigue (780.79), HYPERTENSION, ESSENTIAL NOS (401.9), Systemic lupus erythematosus (710.0) [facility] Office Visit On: 28-Mar-2015 13:06 Encounter Reason: Follow up acute care visit - The patient feels the same. Patient has been compliant with instructions. The medical issues the patient is following up for include All identified problems below and other (vag. ulcer). End: 28-Mar-2015 13:50 Encounter Diagnosis: Rhabdomyolysis (Renamed from Disease characterized by destruction of skeletal muscle), Arthritis, rheumatoid (714.0), Abnormal TSH (794.5), Headache (784.0), Hypothyroidism (acquired) [facility] Lab Order On: 13-Mar-2015 17:51 Encounter Diagnosis: Abnormal TSH (794.5) End: 13-Mar-2015 17:53 [facility] Phone Encounter On: 02-Mar-2015 10:23 Encounter Diagnosis: Abnormal TSH (794.5) End: 02-Mar-2015 10:36 [facility] Office Visit On: 28-Feb-2015 10:04 Encounter Reason: Follow up tests - Date: (december 2014).Encounter Diagnosis: Rhabdomyolysis (Renamed from Disease characterized by destruction of skeletal muscle), HYPERTENSION, ESSENTIAL NOS (401.9), Fatigue (780.79), End: 28-Feb-2015 10:52 Systemic lupus erythematosus (710.0), Depressive Disorder (311.) [facility] Refill Request On: 27-Jan-2015 16:18 Encounter Diagnosis: PRURITIC DISORDER NOS (698.9) End: 27-Jan-2015 16:19 [facility] Office Visit On: 27-Dec-2014 13:31 Encounter Reason: Follow up for chronic medical issues - The medical issues the patient is following up for include asthma, depression, high blood pressure, kidney problems and other (lupus, memory loss, anemia).Encounter Diagnosis: End: 27-Dec-2014 14:28 Rhabdomyolysis (Renamed from Disease characterized by destruction of skeletal muscle), Arthritis, rheumatoid (714.0), SYMPTOMS INVOLVING SKIN AND OTHER INTEGUMENTARY TISSUE, EDEMA (782.3), Hypokalemia (276.8), HERPES SIMPLEX, UNCOMPLICATED (054.9), Skin Tag, Irritated (701.9), Anxiety (300.00), Abnormal TSH (794.5), WWV V73.21, Gastrointestinal bleeding (578.9), Asthma (493.11), Degenerative Disc Disease - Cervical Spine (722.4), Hypertensive Renal Dx. (403.90), HYPERTENSION, ESSENTIAL NOS (401.9), Anemia (285.9), arthritis,unspecified (716.90), Headache (784.0), Low back pain (724.2), Allergic Rhinitis(477.9), Neck pain on right side, Depressive Disorder (311.), Muscle pain (729.1), TREMOR, NOS (781.0), KIDNEY DISEASE, CHRONIC, STAGE III (585.3), Thumb pain, Wheezing, Sleep disorder (780.50), Well Women Exam (V72.31)( Pap, Mammo, Routine Female and Dexa) (Renamed from Well Woman V72.31 (p,m,d)), Laceration, Hypocalcemia (275.41), Memory loss (780.93), Abdominal pain (789.00), CKD (chronic kidney disease) (585.9), Dehydration symptoms (783.9), Decubitus ulcer of coccyx (707.03), Dehydration (276.51), Fatigue (780.79), Mouth ulcers (528.9), Raynaud's syndrome (443.0), PRURITIC DISORDER NOS (698.9), Cervical Spasm (728.85), BRONCHITIS, NOT SPECIFIED ACUTE OR CHRONIC (490.), DIARRHEA (787.91), Genital ulcer, female (629.89), KIDNEY DISEASE, CHRONIC, STAGE I (585.1), Cough, Systemic lupus erythematosus (710.0), Solitary stealing [facility] Annotation/Addendum On: 10-May-2014 15:16 Encounter Diagnosis: Unspecified Diagnosis End: 10-May-2014 15:25 [facility] Office Visit On: 28-Apr-2014 10:18 Encounter Diagnosis: Unspecified Diagnosis End: 28-Apr-2014 10:27 [facility] Phone Encounter On: 26-Apr-2014 13:55 Encounter Diagnosis: Abdominal pain (789.00) End: 26-Apr-2014 14:01 [facility] Lab Order On: 12-Apr-2014 10:29 Encounter Diagnosis: Rhabdomyolysis (Renamed from Disease characterized by destruction of skeletal muscle) End: 12-Apr-2014 10:34 [facility] Annotation/Addendum On: 31-Mar-2014 14:46 Encounter Reason: Memory impairment - The onset of the memory impairment has been sudden. Note for Memory impairment: mms 2830vision corrected R 20/15 L 20/15 and both 20/13uncorrected - R 20/50 L 20/30 both 20/25Encounter Diagnosis: End: 31-Mar-2014 17:08 Memory loss (780.93), CKD (chronic kidney disease) (585.9) [facility] Office Visit On: 08-Mar-2014 14:24 Encounter Reason: Trauma - The onset of the trauma has been sudden and has been occurring in a persistent pattern for 10 minutes. The course has been constant. The trauma is described as mild. Note for Trauma: fingerEncounter Diagnosis: Laceration End: 08-Mar-2014 15:03 , Thumb pain [facility] Office Visit On: 03-Feb-2014 10:07 Encounter Reason: Well Women Exam - The patient is sleeping poorly. Patient does not exercise. The patient's libido is normal. The patient reports that she does not perform monthly breast self exam. Previous evaluations: End: 03-Feb-2014 10:45 hysterectomy. The patient denies the use of oral contraceptives or hormone replacement therapy. Menstruation: Last menstrual period date: (had hysterectomy).Encounter Diagnosis: Well Women Exam (V72.31)( Pap, Mammo, Routine Female and Dexa) (Renamed from Well Woman V72.31 (p,m,d)), Sleep disorder (780.50) [facility] Phone Encounter On: 01-Feb-2014 11:42 Encounter Diagnosis: Cough End: 01-Feb-2014 11:43 [facility] Office Visit On: 25-Jan-2014 11:38 Encounter Reason: Sinusitis/ - The course has been worsening. The sinusitis/ has no relieving factors. Associated features include The symptoms have been associated with cough, ear pain, nasal discharge/stuffy nose and s End: 25-Jan-2014 12:27 inus pain. No previous evaluations were reported.Encounter Diagnosis: Wheezing, ACUTE SINUSITIS, UNSPECIFIED (461.9), BRONCHITIS, NOT SPECIFIED ACUTE OR CHRONIC (490.) [facility] Office Visit On: 24-Nov-2013 13:48 Encounter Reason: Follow up hospital - Reason for ER visit: note: (Rhabdo). The patient does not feel well and has decreased energy level. Patient has been compliant with instructions. Current medication use: no side eff End: 24-Nov-2013 15:07 ects, compliant with dosing regimen and not considered effective by patient.Encounter Diagnosis: Rhabdomyolysis (Renamed from Disease characterized by destruction of skeletal muscle), CKD (chronic kidney disease) (585.9), Abdominal pain (789.00) [facility] Lab Order On: 02-Nov-2013 14:41 Encounter Diagnosis: Rhabdomyolysis (728.88) End: 02-Nov-2013 15:05 [facility] Office Visit On: 17-Aug-2013 13:37 Encounter Reason: Forms - The patient presents to the office to be evaluate for work form (see scanned in form filled out).Encounter Diagnosis: PHYSICAL EXAM, ROUTINE (V70.0) End: 17-Aug-2013 14:26 [facility] Annotation/Addendum On: 10-Aug-2013 15:39 Encounter Diagnosis: Unspecified Diagnosis End: 10-Aug-2013 15:51 [facility] Phone Encounter On: 16-Jul-2013 13:39 Encounter Diagnosis: Decubitus ulcer of coccyx (707.03) End: 16-Jul-2013 13:43 [facility] Office Visit On: 14-Jul-2013 8:40 Encounter Reason: Follow up acute care visit - The patient does not feel well. Patient has been compliant with instructions. The medical issues the patient is following up for include All identified problems below and other (vag. ulcer). End: 14-Jul-2013 14:56 Encounter Diagnosis: Genital ulcer, female (629.89), Decubitus ulcer of coccyx (707.03) [facility] Annotation/Addendum On: 28-Jun-2013 17:35 Encounter Diagnosis: Unspecified Diagnosis End: 28-Jun-2013 17:39 [facility] Office Visit On: 18-Jun-2013 8:39 Encounter Reason: Muscle pain - The onset of the muscle pain has been sudden and has been occurring in a persistent pattern for 4 days. The course has been increasing. The muscle pain is described as a moderate dull achi End: 18-Jun-2013 16:13 ng. The muscle pain is located over the entire body. The symptoms have no aggravating factors. The symptoms have no relieving factors. The symptoms have been associated with arthralgia, fatigue and musc le cramps (spasms), while the symptoms have not been associated with cough, headache or trauma.Encounter Diagnosis: KIDNEY DISEASE, CHRONIC, STAGE I (585.1), Muscle pain (729.1), DIARRHEA (787.91), Dehydration (276.51), Dehydration symptoms (783.9), Hypocalcemia (275.41) [facility] Office Visit On: 03-May-2013 15:38 Encounter Reason: Shoulder Problem - Symptoms include shoulder pain. The pain radiates to the right neck and right upper back. Onset was sudden. The symptoms occur constantly. The patient describes symptoms as moderate i End: 03-May-2013 16:09 n severity and worsening. Associated symptoms include pain in the neck. Previous presentation included shoulder pain and pain in the neck.Encounter Diagnosis: Unspecified Diagnosis, Neck pain on right side (723.1) [facility] Refill Request On: 02-Apr-2013 13:24 Encounter Diagnosis: Anxiety (300.00) End: 02-Apr-2013 13:26 [facility] Office Visit On: 16-Mar-2013 14:44 Encounter Reason: genital ulcer - recurringEncounter Diagnosis: Genital ulcer, female (629.89) End: 18-Mar-2013 7:13 [facility] Office Visit On: 15-Mar-2013 14:25 Encounter Reason: Herpes Simplex, Oral, Adult - Symptoms include itching. Lesions are located on the right lower lip (labia). Onset was sudden (03/14/13). Onset followed stressful event.Encounter Diagnosis: Genital ulcer, female (629.89) End: 16-Mar-2013 8:15 [facility] Annotation/Addendum On: 02-Feb-2013 11:32 Encounter Reason: Follow up tests - Diagnostic tests include other (cx results). Date: (01/26/12).Encounter Diagnosis: Mouth ulcers (528.9) End: 02-Feb-2013 12:28 [facility] Office Visit On: 25-Jan-2013 10:48 Encounter Reason: Follow up acute care visit - The patient does not feel well.Encounter Diagnosis: HERPES SIMPLEX, UNCOMPLICATED (054.9), Genital ulcer, female (629.89) End: 25-Jan-2013 11:17 [facility] Erroneous Entry On: 15-Jan-2013 13:22 Encounter Reason: Follow up for chronic medical issues - The medical issues the patient is following up for include asthma, depression, high blood pressure, kidney problems and other (lupus, memory loss, anemia).Encounter Diagnosis: End: 05-Feb-2013 13:10 Unspecified Diagnosis [facility] Annotation/Addendum On: 12-Jan-2013 10:59 Encounter Diagnosis: Unspecified Diagnosis End: 12-Jan-2013 13:20 [facility] Office Visit On: 12-Jan-2013 10:20 Encounter Reason: herpes Encounter Diagnosis: HERPES SIMPLEX, UNCOMPLICATED (054.9) End: 12-Jan-2013 10:57 [facility] Office Visit On: 24-Nov-2012 13:48 Encounter Reason: Shoulder Problem - The patient is right hand dominant. The injury involved the left shoulder. Note for Shoulder problem: woke up one am with it. hurt to trun neck ? slept wrong. started last week. no End: 27-Nov-2012 5:55 trauma or unusal exertion. using nsaids heat. spreading down armEncounter Diagnosis: Cervical Spasm (728.85), Depressive Disorder (311.) [facility] Office Visit On: 09-Sep-2012 10:18 Encounter Reason: Chest pain - The onset of the pain has been sudden and has been occurring in an intermittent pattern for 30 minutes. The pain is described as a moderate pressure sensation and stabbing sensation. The pa End: 09-Sep-2012 12:03 in is described as being located in the left chest. The pain radiates to the back. There are no precipitating factors. The symptoms have no aggravating factors. The symptoms have no relieving factors. T he symptoms have been associated with headache (yesterday), while the symptoms have not been associated with cough, dizziness, emotional stress, nausea or wheezing. Note for Chest pain: dry cough Chest pain is reproducible with hand to chest Encounter Diagnosis: SYMPTOM, PAIN, CHEST NEC (786.59), Systemic lupus erythematosus (710.0), HYPERTENSION, ESSENTIAL NOS (401.9), Anxiety (300.00) [facility] Office Visit On: 14-Aug-2012 11:54 Encounter Reason: Memory impairment - The onset of the memory impairment has been gradual and has been occurring in a persistent pattern for 4 months. The course has been recurrent. The memory impairment is characterized End: 14-Aug-2012 13:18 as a loss of recent memory. There has been no associated alcoholism or ataxia. Note for Memory impairment: her boss called her in for meeting. had day at work where affect job. doing crazy things and not remember. sending pt to wrong places, forget to tell others what need. workig this job for 9 years. she has had little things going on for 4months but this first time bad that day. then next week d id great. not know why bad that day. she will have issues remember things or get words out. had kidney biopsy and CKD not lupus. now wonder if really have lupus per edwige. she want third opinion. has had joint pain, CKD, now memory, siggnificant rhabdo x 3. see neuromuscular specialist looking for mitochondrial issue. had numb and tingling through out who body. go to different areas. no dysphagia. no slurred speech or difficulty walking. Encounter Diagnosis: Headache (784.0), Hypertensive Renal Dx. (403.90), Anxiety (300.00), KIDNEY DISEASE, CHRONIC, STAGE III (585.3), Raynaud's syndrome (443.0), Rhabdomyolysis (728.88), Memory loss (780.93), Skin Tag, Irritated (701.9) [facility] Office Visit On: 25-Jun-2012 13:01 Encounter Reason: Physical female exam - Last seen between 1-3 months ago. General health: feels well with no complaints and has good energy level. The patient's appetite is normal. Nutrition: appropriate balanced diet. End: 26-Jun-2012 17:04 Exercises 0 days per week. Sleeps on average 5 hours per night. Normal bowel and bladder habits. Safety measures include appropriate use of safety belts and home smoke detectors. There are no current emotional problems.Encounter Diagnosis: Hypokalemia (276.8), Work Physical (V70.5) [facility] Office Visit On: 05-May-2012 10:12 Encounter Diagnosis: HERPES SIMPLEX, UNCOMPLICATED (054.9) End: 05-May-2012 11:12 [facility] Office Visit On: 24-Mar-2012 10:37 Encounter Diagnosis: SYMPTOM, SHORTNESS OF BREATH (786.05), SYMPTOMS INVOLVING SKIN AND OTHER INTEGUMENTARY TISSUE, EDEMA (782.3) End: 24-Mar-2012 17:21 [facility] Phone Encounter On: 24-Mar-2012 9:23 Encounter Diagnosis: Rhabdomyolysis (728.88) End: 24-Mar-2012 9:29 [facility] Office Visit On: 13-Mar-2012 14:21 Encounter Reason: Urinary problems - The onset of the urinary problems has been sudden and they have been occurring in a persistent pattern for 2 days. The course has been increasing. The urinary problems are described a End: 13-Mar-2012 15:28 s moderate. There has been associated back pain, nausea and blood in urine.Encounter Diagnosis: Low back pain (724.2), SYMPTOM, NAUSEA ALONE (787.02), Rhabdomyolysis (728.88) [facility] Office Visit On: 04-Feb-2012 12:54 Encounter Diagnosis: PRURITIC DISORDER NOS (698.9), Rhabdomyolysis (728.88), Depressive Disorder (311.), Anxiety (300.00) End: 04-Feb-2012 13:33 [facility] Phone Encounter On: 06-Jan-2012 14:28 Encounter Diagnosis: Rhabdomyolysis (728.88), TREMOR, NOS (781.0) End: 06-Jan-2012 14:32 [facility] Annotation/Addendum On: 03-Jan-2012 14:46 Encounter Diagnosis: Unspecified Diagnosis End: 03-Jan-2012 14:51 [facility] Office Visit On: 03-Jan-2012 13:45 Encounter Reason: Pruritus - Symptoms include pruritus, while symptoms do not include dry skin or skin pain. Symptom locations include the face, the neck, the back, the abdomen, the chest, the arms, on the hands and symm End: 03-Jan-2012 14:43 etrical body locations. Onset was sudden. The symptoms occur constantly. The patient describes this as worsening. Symptoms are relieved by cold compresses. Associated symptoms include nausea, while asso ciated symptoms do not include sweating, abdominal pain or fever.Encounter Diagnosis: PRURITIC DISORDER NOS (698.9), Rhabdomyolysis (728.88) [facility] Phone Encounter On: 03-Jan-2012 8:44 Encounter Diagnosis: Hypokalemia (276.8) End: 03-Jan-2012 8:47 [facility] Phone Encounter On: 01-Jan-2012 15:32 Encounter Diagnosis: Unspecified Diagnosis End: 01-Jan-2012 15:37 [facility] Annotation/Addendum On: 01-Jan-2012 8:48 Encounter Diagnosis: Hypokalemia (276.8) End: 01-Jan-2012 9:53 [facility] Office Visit On: 31-Dec-2011 12:51 Encounter Reason: Follow up tests - Diagnostic tests include other (labs). Date: (12/12/11). Follow up visit with no current symptoms. There is no family history of breast cancer, cardiovascular disease, cystic fibrosis, End: 31-Dec-2011 13:48 Down's syndrome, mental retardation or myocardial infarction before age 55. Past medical history includes asthma and other (anemia, RA, CKD, Raynauds, LUPUS).Encounter Diagnosis: Fatigue (780.79), TREMOR, NOS (781.0), Rhabdomyolysis (728.88), Hypokalemia (276.8) [facility] Office Visit On: 12-Dec-2011 13:21 Encounter Reason: Itching - The last clinic visit was week(s) ago. No changes in management were made at the last visit. Symptoms include pruritus (started in upper arm adn moving down arm and across chest and into head End: 12-Dec-2011 13:54 --no new soaps , detergents perfume, moisturizer bri -- no new meds , herbals , shampoos ) and skin erythema. Symptom locations include the arms. Onset was sudden. The symptoms occur intermittently. The patient describes this as moderate in severity and worsening.Encounter Diagnosis: PRURITIC DISORDER NOS (698.9), Anxiety (300.00) [facility] Office Visit On: 26-Nov-2011 13:00 Encounter Reason: Follow up ER - Reason for hospitalization note: (leg pain/edema). Patient has been compliant with instructions. Current medication use: no side effects, compliant with dosing regimen and not considered End: 26-Nov-2011 13:59 effective by patient. The patient feels well with minor complaints, has decreased energy level and is sleeping poorly. Patient sleeps 5 hours per night.Encounter Diagnosis: Rhabdomyolysis (728.88), Systemic lupus erythematosus (710.0), KIDNEY DISEASE, CHRONIC, STAGE III (585.3) [facility] Lab Order On: 16-Oct-2011 12:57 Encounter Diagnosis: Abnormal TSH (794.5), Fatigue (780.79) End: 16-Oct-2011 12:58 [facility] Office Visit On: 14-Oct-2011 11:32 Encounter Reason: Cough - Symptoms include cough, chills and sore throat (I think it is from the cough). Cough onset was 5 day(s) ago (I had a bad lupus flare wed and it started with that and I think I gave myself a hernia).Encounter Diagnosis: End: 14-Oct-2011 12:03 Bronchitis, acute (466.0), Systemic lupus erythematosus (710.0), ASTHMA, UNSPECIFIED, WITH ACUTE EXACERBATION (493.92), Abdominal Pain,LLQ (789.04) [facility] Phone Encounter On: 12-Aug-2011 18:14 Encounter Diagnosis: Abnormal TSH (794.5) End: 12-Aug-2011 18:22 [facility] Office Visit On: 06-Aug-2011 11:11 Encounter Reason: Fatigue - The onset of the fatigue has been acute and has been occurring in a persistent pattern for 4 days. The course has been increasing. The fatigue occurs all the time. Note for Fatigue : had th End: 06-Aug-2011 11:56 yroid w/u done end June. She says that her lupus always leaves her feeling fatigued, but never as bad as it is now. - thougth she was having a lupus flare so tried her pred but didnt help- no joint pain question rash face not typical lupus rash, [ADDITIONAL REASON] Anxiety - The onset of the anxiety has been acute and has been occurring in a persistent pattern for 4 days. The course has been increasing. The anxiety is characterized as nervous ness (irritability). There are no specific phobias. There were no precipitating factors. The symptoms have been associated with agitation. Note for Anxiety : has been on prozac a couple mos and though t was helping- taking for ocd and anxiety-- gets angry easy- and has teenage daughter-- turning 13 - gone alot- having trouble falling asleep -was using benadryl- cant shut down at night- mind th inks alot- getting 6 hours sleep- wakes up freq- not restful- Encounter Diagnosis: Fatigue (780.79), Abnormal TSH (794.5), Anxiety (300.00) [facility] Office Visit On: 11-Jun-2011 14:00 Encounter Reason: Follow up tests - Diagnostic tests include other (labs: cmp, cpk). Date: (06/07/11). Note for Follow up tests: also was recently started on Prozac when in on 05/21/11Encounter Diagnosis: Depressive Disorder (311.), End: 11-Jun-2011 14:30 Hypokalemia (276.8), Rhabdomyolysis (728.88), Allergic Rhinitis(477.9), Abnormal TSH (794.5) [facility] Phone Encounter On: 10-Jun-2011 13:42 Encounter Diagnosis: Hypokalemia (276.8) End: 10-Jun-2011 13:44 [facility] Office Visit On: 21-May-2011 11:42 Encounter Reason: Follow up hospital - Reason for ER visit: note: (recurrent rhabdomylosis). The patient feels well with minor complaints, has decreased energy level, is sleeping poorly and gradually improving. Patient h End: 21-May-2011 12:20 as been compliant with instructions. Current medication use: no side effects, compliant with dosing regimen and considered effective by patient. Patient sleeps 6 hours per night. Impact of disease: emot ional impact-mild. Nutrition: balanced diet and supplemental vitamins.Encounter Diagnosis: Abdominal Pain,General (789.07), Rhabdomyolysis (728.88), Depressive Disorder (311.) [facility] Phone Encounter On: 21-Jan-2011 13:45 Encounter Diagnosis: SYMPTOM, PAIN, CHEST NEC (786.59) End: 21-Jan-2011 13:45 [facility] Office Visit On: 20-Dec-2010 13:53 Encounter Diagnosis: SYMPTOM, PAIN, CHEST NEC (786.59), SYMPTOM, SHORTNESS OF BREATH (786.05), Depressive Disorder (311.), arthritis,unspecified (716.90), Degenerative Disc Disease - Cervical Spine (722.4) End: 20-Dec-2010 14:37 [facility] Office Visit On: 27-Sep-2010 7:38 Encounter Diagnosis: Rash (782.1), Abdominal Pain,General (789.07), Gastrointestinal bleeding (578.9) End: 27-Sep-2010 8:02 [facility] Office Visit On: 24-Jul-2010 14:01 Encounter Reason: new patient female physical - Last seen between 1-3 months ago. General health: feels well with minor complaints and has decreased energy level. The patient's appetite is normal. Nutrition: normal/adequ End: 24-Jul-2010 14:48 ate. Exercises 3 days per week. Sleeps on average 7 hours per night. Normal bowel and bladder habits. Safety measures include appropriate use of safety belts and home smoke detectors. Current emotional problems include sleep disturbances (insomnia). screening, Pap smear (hysterectomy still has ovaries). Encounter Diagnosis: KIDNEY DISEASE, CHRONIC, STAGE I (585.1), Systemic lupus erythematosus (710.0), Asthma (493.11), Arthritis, rheumatoid (714.0), Raynaud's syndrome (443.0), Allergic Rhinitis(477.9), Hypertensive Renal Dx. (403.90), Headache (784.0), arthritis,unspecified (716.90), Anemia (285.9), Sleep disorder (780.50), Degenerative Disc Disease - Cervical Spine (722.4), Rhabdomyolysis (728.88), WWV V73.21 [facility] CampusKristin Faust; a guarantor
--- OUTSIDE RECORDS SUMMARY | 2018-12-12 19:03 | XMS RPT_ITS | Continuity of Care Document ---
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 no more than 2 in 24 hours. for 6 days Quantity: 12 {Tablet} Refills: 0 Ordered:26-Oct-2018 Lisa CONDE Amy Joseph Start : 26-Oct-2018 Active Omeprazole 40 MG [...] 8 {Tablet} Refills: 0 Ordered:26-Oct-2018 Lisa CONDE Jolly Start : 26-Oct-2018 Active PROzac 20 MG [...] days Quantity: 14 {QS} Refills: 0 Ordered:11-Sep-2015 Amy Gonzalez CNP Start : 11-Sep-2015 End : 18-Sep-2015 Inactive [...] Liberty Choi LPN End : 14-Aug-2012 Inactive Gabapentin 300 MG Oral Capsule 2 (two) Capsule qhs for 90 days Quantity: 180 {Capsule} Refills: 0 Ordered:10-Jun-2018 Birdie Garrett DO, DO, Kathleen Start : 10-Jun-2018 End : 08-Sep-2018 Inactive Comments:M50.30 HYCODEN (Oral Syrup) (Free Text) 1 Syrup [...] for 2 days Refills: 0 Ordered:13-Mar-2012 Lisa CONDE Jolly Start : 13-Mar-2012 End : 15-Mar-2012 Inactive [...] Quantity: 90 {Capsule} Refills: 1 Ordered:05-Oct-2013 JAMAR Wesley Start : 15-Mar-2013 End : 05-Oct-2013 Inactive [...] Quantity: 2 {Tablet} Refills: 0 Ordered:26-Jun-2015 JAMAR Wesely Start : 10-May-2014 End : 26-Jun-2015 Inactive [...] (chronic kidney disease) (585.9) Comments: 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 Nunez at [facility]. he does want biopsy since just [...] 2 Views Result: Comments: See Note; NOTES: [facility] Imaging Services [address] [place] [address] Pelvis 1 or 2 Views MR#: [id number] Acct: [id number] Name: KRISTIN FAUST Edmund Rep #: [id number] D OB: 1970 F 47 From: Slava Lake MD PCP: Rosalinda Garrett DO Status: REG CLI Study: Pelvis 1 or 2 Views Date of Exam: 09/17/18 Exam# [id number] Ordering Dr: Re López MD STUDY: X-RAY [...] CC: Rosalinda Garrett DO; Re López MD Urogynaecologist: Signed 16-Oct-2017 Bilat Brst Sky Stand Alone Result: Comments: See Note; NOTES: [facility] Imaging Services [address] [place] [address] Bilat Brst Sky Stand Alone MR#: [id number] Acct: [id number] Name: KRISTIN FAUST Rep #: [id number] : 1970 F 46 From: Oni Leone MD PCP: Rosalinda Garrett DO Status: REG CLI Study: Bilat Brst Sky Stand Alone Date of Exam: 10/16/17 Exam# [id number] Ordering Dr: Rosalinda Garrett MAMMOGRAPHY - BILATERAL [...] delay biopsy of a clinically suspicious abnormality. [id number] Electronically Signed: Oni Leone MD at 14:42 EST Tel [phone], Service support [phone], CC: Rosalinda Garrett DO Urogynaecologist: Signed 16-Oct-2017 Breast Limited Unilateral Result: Comments: See Note; NOTES: [facility] Imaging Services [address] [place] [address] Breast Limited Unilateral MR#: [id number] Acct: [id number] Name: KRISTIN FAUST Rep #: [id number] : 1970 F 46 From: Oni Leone MD PCP: Rosalinda Garrett DO Status: REG CLI Study: Breast Limited Unilateral Date of Exam: 10/16/17 Exam# [id number] Ordering Dr: Rosalinda Garrett DO STUDY: ULTRASOUND [...] Oni Leone MD at 15:23 EST Tel [phone], Service support , CC: Rosalinda Garrett DO Urogynaecologist: Signed 16-Oct-2017 DIAG MAMM W/CAD, BILAT Result: Comments: See Note; NOTES: [facility] Imaging Services [address] [place] [address] DIAG MAMM W/CAD, BILAT MR#: [id number] Acct: [id number] Name: KRISTIN FAUST Rep #: [id number] : 1970 F 46 From: Oni Leone MD PCP: Rosalinda Garrett DO Status: REG CLI Study: DIAG MAMM W/CAD, BILAT Date of Exam: 10/16/17 Exam# [id number] Ordering Dr: Rosalinda Garrett DO MAMMOG TIFFANIE [...] delay biopsy of a clinically suspicious abnormality. LT3510 Electronically Signed: Oni Leone MD at 14:42 EST Tel [phone], Service support , Fa x [phone] CC: Rosalinda Garrett DO Urogynaecologist: Signed 04-Apr-2017 Brain W/WO Contrast Result: Comments: See Note; NOTES: [facility] Imaging Services [address] [place] [address] Verdana 4d Brain W/WO Contrast MR#: [id number] Acct: [id number] Name: FAUSTKRISTIN Edmund Rep #: [id number] : 1970 F 46 From: Nir Zuleta MD PCP: Rosalinda Garrett DO Status: REG CLI Study: Brain W/WO Contrast Date of Exam: 04/04/17 Exam# [id number] Ordering Dr: Rosalinda Garrett DO STUDY: MRI [...] Service support , CC: Rosalinda Garrett DO Urogynaecologist: Signed 04-Apr-2017 MRA Head ONLY without Contrast Result: Comments: See Note; NOTES: [facility] Imaging Services [address] [place] [address] Verdana 4d MRA Head ONLY without Contrast MR#: [id number] Acct: [id number] Name: FISH FAUST Rep #: [id number] : 1970 F 46 From: Kian Pedroza MD PCP: Rosalinda Garrett DO Status: REG CLI Study: MRA Head ONLY without Contrast Date of Exam: 04/04/17 Exam# [id number] Ordering Dr: Rosalinda Herron DO STUDY: MRA OF THE HEAD WITHOUT CONTRAST REASON FOR EXAM: Female, 46 years old. Memory loss, anisocoria, headaches. TECHNIQUE: 3-D dffn-zw-rlylhf (TOF) imaging was performed with M IPs. The study was performed unenhanced. COMPARISON: 08/25/2012 [...] There is no demonstrated aneurysm of the habematolel of Melendez. There is no major vessel occlusion or hemodynamically significant stenosis. There is no demonstrated abnormality of the visualized brain. MRI/MRA Head ON LY without Contrast IMPRESSION: Normal MRA of the head, without any interval change from prior study. Electronically Signed: Marcos Pedroza MD at 1:46 EDT Tel , Service suppo rt , CC: Rosalinda Garrett DO Urogynaecologist: Signed 20-Apr-2016 Emergency Department Summary Result: Comments: See Note; NOTES: [facility] Medical Records Department [address] [place] [address] Emergency Department Summary MR#: [id number] Acct: [id number] Name: KRISTIN FAUST Rep #: [id number] : 1970 45 From: Markus Palma MD PCP: Rosalinda Garrett DO Status: DEP ER DATE OF SERVICE: 04/20/2016 HISTORY OF PRESENT ILLNESS: A 45-year-old woman who prese nts with myalgias that started yesterday with dark colored urine. This occurred after helping her mother lay yards of [employer]. She has history of autoimmune disorder, renal insufficiency and asthma. She states she has been drinking plenty of fluids. She reported dark urine this morning. She has no other complaints. PAST MEDICAL HISTORY: Autoimmune disorder, asthma, and renal insufficiency. PRIMA CARE PHYSICIAN: Dr. Garrett/Dr. Russell. PHYSICAL EXAMINATION: [...] Annamaria Monet C: Rosalinda Garrett DO T: NTS JOB: [id number] 04/20/162341 <Electronically signed by Markus Palma MD> Date Markus Palma MD Cosigner S ignature (If Indicated): Date CC: Rosalinda Garrett DO Date Dictated: 04/20/161741 Date Transcribed: 04/20/161741 Urogynaecologist: Signed 20-Apr-2016 Discharge Instruction Result: Comments: See Note; NOTES: [facility] Medical Records Department [address] [place] [address] Discharge Instruction 04/20/161741 MR#: [id number] Acct: [id number] Name: KRISTIN FAUST Rep #: [id number] : 1970 45 From: Markus Palma MD PCP: Rosalinda Garrett DO Status: REG ER ED Disposition - Plan for ED Patient: Disposition: Home or Assisted Living C [facility] Complaint: General Illness Instructions: ED Myalgias, ED Renal Insufficiency Referrals: Rosalinda Garrett DO [Primary Care Provider] - As Needed What to do if you have Problems For any incr eased pain, shortness of breath, bleeding, nausea or vomiting, chest pain, or any unexpected problems, contact your doctor. Call [facility] ([phone]) or report to the closest Emergency Room . Call 911 if necessary. 04/20/161743 <Electronically signed by Markus Palma MD> Date Markus Palma MD Cosigner Signature (If Ind icated): Date CC: Rosalinda Garrett 23-Feb-2016 12 Lead Electrocardiogram Result: Comments: See Note; NOTES: [facility] Cardiovascular Services [address] [place] [address] 12 Lead EKG 02/22/16103 MR#: [id number] Acct: [id number] Name: KRISTIN FAUST Rep #: [id number] : 1970 45 From: Davi Lutz MD [...] Normal ECG Confirmed by DAVI LUTZ ([id number]), acquisitions editor DICK SHIPLEY ([id number]) on 02/23/2016 2:52:46 PM Referred By: ABHISHEK Confirmed By:DAVI LUTZ 02/23/16 1452 Date ___ Davi Lutz MD CC: Hillary Russell MD Date Dictated: 02/22/16103 Date Transcribed: 02/22/16103 Urogynaecologist: Signed 23-Feb-2016 EKG (50111) Result: [MEASUREMENTS ANALYSIS] Date of Test: 02/23/2016 13:44:59; Heart Rate: 72; ND Interval: 150; QRS: 88; QT Interval: 412; Corrected QT Interval (QTc): 433; P Wave [place]: 57; QRS Wave [place]: 55; T Wave [place]: 41; Blood Pressure: 130/86 [ECG DIAGNOSTIC STATEMENTS] Date of Test: 02/23/2016 13:44:59; Summary: Sinus Rhythm WITHIN NORMAL LIMITS 22-Feb-2016 Emergency Department Summary Result: Comments: See Note; NOTES: [facility] Medical Records Department [address] [place] [address] Emergency Department Summary MR#: [id number] Acct: [id number] Name: KRISTIN FAUST Rep #: [id number] : 1970 45 From: Garcia Asencio MD [...] of 72 with no acute signs of DE, ischemia or dysrhythmia. White count of 11, [...] MD C C: Hillary Russell MD T: [facility] JOB: [id number] 02/22/16 0535 <Electronically signed by Garcia Asencio MD> Date Garcia Asencio MD Cosigner Signature (If Indicated): Date CC: Hillary Russell MD Date Dictated: 02/22/16418 Date T ranscribed: 02/22/16418 Urogynaecologist: Signed 22-Feb-2016 Discharge Instruction Result: Comments: See Note; NOTES: [facility] Medical Records Department [address] [place] [address] Discharge Instruction 02/22/16 0148 MR#: [id number] Acct: [id number] Name: KRISTIN FAUST Edmund Rep #: [id number] : 1970 45 From: Garcia Asencio MD [...] unexpected problems, contact your doct or. Call [facility] ([phone]) or report to the closest Emergency Room. Call 911 if necessary. 02/22/16 0529 <Electronically signed by Garcia Asencio MD> Date __ Garcia Asencio MD Cosigner Signature (If Indicated): Date CC: Hillary Russell MD 22-Feb-2016 Chest 1 View (Portable) Result: Comments: See Note; NOTES: [facility] Imaging Services [address] [place] [address] Verdana 4d Chest 1 View (Portable) MR#: [id number] Acct: [id number] Name: KRISTIN JACKSON Rep #: [id number] : 1970 F 45 From: Winston Espinosa PCP: Hillary Russell MD Status: REG ER Study: Chest 1 View (Portable) Date of Exam: 02/22/16 Exam# [id number] Ordering Dr: Garcia Asencio MD STUDY: X-RAY [...] at 1:42 EDT , Servic e support [phone], RAD/Chest 1 View (Portable) IMPRESSION: Normal x-ray examination of the chest. Electronically Signed: Winston Espinosa MD at 1:42 EDT , Service support [phone], CC: Hillary Russell MD; Garcia Asencio MD Urogynaecologist: Signed 08-Nov-2015 Brain W/WO Contrast Result: Comments: See Note; NOTES: [facility] Imaging Services [address] [place] [address] Verdana 4d Brain W/WO Contrast MR#: [id number] Acct: [id number] Name: VIBHA FAUST Rep #: [id number] : 1970 F 44 From: Daylin Quintana MD PCP: Hillary Russell MD Status: REG CLI Study: Brain W/WO Contrast Date of Exam: 11/08/15 Exam# [id number] Ordering Dr: Aamir Russell MD STUDY: MRI [...] MD at 16:49 EST , Service support [phone], CC: Hillary Russell MD Urogynaecologist: Signed 08-Sep-2015 Kidney and Bladder Result: Comments: See Note; NOTES: [facility] Imaging Services [address] [place] [address] Verdana 4d Kidney and Bladder MR#: [id number] Acct: [id number] Name: LISA FAUST Rep #: [id number] : 1970 F 44 From: Bia Cain MD PCP: Hillary Russell MD Status: REG CLI Study: Kidney and Bladder Date of Exam: 09/08/15 Exam# [id number] Ordering Dr: Amy Gonzalez STUDY: RENAL ULTRASOUND [...] 17 :16 EDT Tel , Service support [phone], CC: Amy Gonzalez; Hillary Russell MD Urogynaecologist: Signed 27-Jun-2014 Ligia Vasquez Digital & CAD Result: Comments: See Note; NOTES: [facility] Imaging Services [address] [place] [address] Breast Imaging Report MR#: [id number] Acct: [id number] Name: KRISTIN YOUNG Rep #: [id number] : 1970 F 43 From: Oni Leone MD PCP: Hillary Russell MD Status: REG CLI Exam# [id number] Ordering Dr: Hillary Russell MD MAMMOGRAPHY - [...] Oni moreira MD at 11:04 EDT Tel [phone], Service support [phone], CC: Hillary Russell MD Urogynaecologist: Signed 01-Feb-2014 Chest PA and Lateral Result: Comments: See Note; NOTES: [facility] Imaging Services [address] [place] [address] Radiology Report MR#: [id number] Acct: [id number] Name: KRISTIN YOUNG Rep #: [id number] : 1970 F 43 From: Winston Espinosa PCP: Hillary Russell MD Status: REG CLI Study: Chest PA and Lateral Date of Exam: 02/01/14 Exam# [id number] Ordering Dr: Hillary Russell MD STUDY: X-RA [...] M.D. at 7:18 EDT , Service support [phone], Fax CC: Hillary Russell MD Urogynaecologist: Signed 17-Dec-2013 Abdomen Complete Result: Comments: See Note; NOTES: [facility] Imaging Services [address] [place] [address] Ultrasound Report MR#: [id number] Acct: [id number] Name: KRISTIN YOUNG Rep #: [id number] : 1970 F 43 From: Oni Leone MD PCP: Status: REG CLI Study: Abdomen Complete Date of Exam: 12/17/13 Exam# [id number] Ordering Dr: Amy Gonzalez STUDY: ABDOMINAL ULTRASOUND [...] M.D. at 14:04 EST , Service support [phone], CC: Amy Gonzalez Urogynaecologist: Signed 17-Dec-2013 Pelvic (Non ) Result: Comments: See Note; NOTES: [facility] Imaging Services [address] [place] [address] Ultrasound Report MR#: [id number] Acct: [id number] Name: KRISTIN YOUNG Rep #: [id number] : 1970 F 43 From: Oni Leone MD PCP: Status: REG CLI Study: Pelvic (Non ) Date of Exam: 12/17/13 Exam# [id number] Ordering Dr: Amy Gonzalez STUDY: ULTRASOUND OF [...] at 14:06 EST Tel , Service support [phone], CC: Amy Gonzalez Urogynaecologist: Signed Family History Unknown Family Member Name [...] 1.65 m2 Results Date Description Value Details 8-Fvo-907984:40 Comprehensive Metabolic Profil Comments: [facility] [address] [place], [address] GAP 9 (Normal) Range: 5-15 CO2 27.0 [...] Comments: Please note revised GLUCOSE reference range /02/2018. 4-Osw-941845:19 Anti-Centromere B Ab Comments: [facility] (refer to [...] ANTI-KARY <0.2 {AI} (Normal) Range: 0.0-0.9 :19 Pbca-Cvbeaklkhdr-34 AB Comments: [facility] (refer to report for specific site)refer to report for address and phone number ANTISCLER <0.2 {AI} (Normal) Range: 0.0-0.9 :19 Antiextractable Nug Ag Comments: [facility] (refer to report for specific site)refer to report for address and phone number BRICENO Ab <0.2 {AI} (Normal) Range: 0.0-0.9 PROSTHETIST Ab <0.2 {AI} (Normal) Range: 0.0-0.9 :19 ANTINUCLEAR ANTIBODIES DIRECT Comments: [facility] (refer to report for specific site)refer to report for address and phone number MONIQUE-DIRECT Negative (Normal) Comments: Performed at: [address] [id number] Director: West Spivey PhD, Phone: [phone] :19 CBC W/Diff, Automated Comments: [facility] [address] [place], [address] Absolute Lymph 1.12 {X10_3/ul} (Normal) Range: 0.83-4.51 [...] 4.2-5.4 WBC 6.3 K/mm3 (Normal) Range: 4.4-11.0 7-Uhl-947892:19 CCP IgG Antibodies Comments: [facility] (refer to report for specific site)refer to report for address and phone number ANTI-CCP 903745 6 {units} (Normal) Range: 0-19 Comments: Negative <20 Weak positive 20 - 39 Moderate positive 40 - 59 Strong positive >59 0-Eoi-779058:19 Complement C3 Comments: [facility] (refer to report for specific site)refer to report for address and phone number COMP C3 128 mg/dL (Normal) Range: 82-167 2-Hxr-156701:19 Complement C4 Comments: [facility] (refer to report for specific site)refer to report for address and phone number COMP C4 28 mg/dL (Normal) Range: 14-44 7-Mxb-150392:19 Comprehensive Metabolic Profil Comments: [facility] [address] [place], [place], [id number] GAP 8 (Normal) Range: 5-15 CO2 26.0 [...] Comments: Please note revised GLUCOSE reference range vkfxyxake69/02/2018. 8-Oek-162031:19 CRP Comments: [facility] [address] [place], [place], [id number] C-REACTIVE PROT < 2.90 mg/L (Normal) Range: 0.0-3.0 Comments: C-Reactive Protein (CRP) provides useful information for thediagnosis, therapy and monitoring of inflammatory processesand associated diseases. For the evaluation of Relative Riskfor Cardiovascular Dise ase, a High Sensitivity CRP (HSCRP)should be ordered. :19 Erythrocyte Sed Rate Comments: [facility] [address] [place], [address] SED RATE 2 mm/h (Normal) Range: 0-20 [...] AG Negative (Normal) Comments: Performed at: - Lab[address] [id number] Director: West Spivey PhD, Phone: [phone] at: [facility] [id number] Director: Juan Clifton PhD, Phone: [phone] at: [facility] [id number] Director: Iesha Ambrocio MD, Phone: [phone] :19 Hepatitis C Antibodies Comments: [facility] (refer to report for specific site)refer to report for address and phone number HEP C AB <0.1 {s/co_ratio} Range: 0.0-0.9 (Normal) Comments: Negative: < 0.8 Indeterminate: 0.8 - 0.9 Positive: > 0.9 The CDC recommends that a positive HCV antibody result be followed up with a HCV Nucleic Acid Amplification test (820095). : HLA B27 Negative (Normal) Comments: [facility] (refer to report for specific site)refer to report for address and phone number 19 Comments: HLA-B*27 YclkvyruV08 allele interpretation for all loci based on IMGT/HLAdatabase version 3.31.0This test was developed and its performance characteristicsdetermined by [employer]. It has not been cleared or approvedby the Food and Drug Administration.[facility] CLIA ID Number [id number] test was performed using PCR (Polymerase ChainReaction)/SSOP (Sequence Specific Oligonucleotide Probes)technique. S BT (Sequence Based Typing) and/or SSP(Sequence Specific Primers) may be used as supplementalmethods when necessary. Please contact [facility] CustomerService at if you have any questions. Director of [facility] Dr Juan Clifton, PhD :19 Protein+Creatinine Ratio,Urine Comments: [facility] [address] [place] [address], [address] PROT:CRE RATIO 234 {mg/g_CRE} (Abnormal) Range: 0-200 PROTEIN,UR.RAN. 11.5 mg/dL (Normal) UR CREAT 49.10 mg/dL (Normal) 5-Ixk-292596:19 Rheumatoid Factor Comments: [facility] [address] [place], [address] RHEUMATOID FAC < 10.0 {IU/mL} (Normal) :19 Sjogren's Antibodies A/B Comments: [facility] (refer to report for specific site)refer to report for address and phone number Anti-SS-B < 0.2 {AI} (Normal) Range: 0.0-0.9 Anti-SS-A < 0.2 {AI} (Normal) Range: 0.0-0.9 :19 Urinalysis, Routine (Dipstick) Comments: How was Urine Obtained? [facility] [address] [facility] [place], [address] LEUK ESTERASE Negative /ul (Normal) [...] Qn, 24-Hr Comments: PATIENT NOT FASTINGPERFORMED BY: [address] [id number] Information: START 07/14/18@705AM Urine Prot,24hr calculated 71 {mg/24_hr} (Normal) Range: 30-150 Protein,Total,Urine 4.2 mg/dL (Normal) 95-Taw-21523:38 Microscopic Examination Comments: PATIENT WAS FASTINGPERFORMED BY: [employer] [id number] BY: [address] [id number] Bacteria Few (Normal) Epithelial Cells (non renal) 0-10 {/hpf} (Normal) Range: 0 - 10 RBC 0-2 {/hpf} (Normal) Range: 0 - 2 WBC 0-5 {/hpf} (Normal) Range: 0 - 5 :38 T4, FREE (THYROXINE) Comments: PATIENT WAS FASTINGPERFORMED BY: [employer] [id number] BY: [place] [id number] [facility] [id number] (18864) T4,Free(Direct) 1.45 ng/dL (Normal) Range: 0.82-1.77 :38 T3, FREE (TRIDOTHYRONINE) Comments: PATIENT WAS FASTINGPERFORMED BY: [employer] [id number] BY: [address] [id number] ([address]) Triiodothyronine (T3), Free 2.6 pg/mL (Normal) Range: 2.0-4.4 :38 TSH (92373) Comments: PATIENT WAS FASTINGPERFORMED BY: [address] [id number] BY: [place] [id number] [facility] [id number] TSH 3.910 {uIU/mL} (Normal) Range: 0.450-4.500 :38 URINALYSIS, W/ MICRO Comments: PATIENT WAS FASTINGPERFORMED BY: [address] [id number] BY: [address] [id number] (79902) Microscopic Examination See below: (Normal) Comments: Microscopic was indicated and was performed. Microscopic Examination MICRON (Normal) Comments: Microscopic follows if indicated. Nitrite, Urine Negative (Normal) Urobilinogen,Semi-Qn 0.2 mg/dL (Normal) Range: 0.2-1.0 Bilirubin Negative (Normal) Occult Blood Negative (Normal) Ketones Negative (Normal) Glucose Negative (Normal) Protein Negative (Normal) WBC Esterase Negative (Normal) Appearance Clear (Normal) Urine-Color Yellow (Normal) pH 7.0 (Normal) Range: 5.0-7.5 Specific [place] 1.011 (Normal) Range: 1.005-1.030 :38 MICROALBUMIN: CREATININE Comments: PATIENT WAS FASTINGPERFORMED BY: [address] [id number] BY: [address] [id number] RATIO (24624) AND (24586) Alb/Creat Ratio 11.9 {mg/g_creat} (Normal) Range: 0.0-30.0 Albumin, Urine 7.4 ug/mL (Normal) Creatinine, Urine 62.1 mg/dL (Normal) :38 METABOLIC PANEL, Comments: PATIENT WAS FASTINGPERFORMED BY: [address] [id number] BY: [place] [id number] [facility] [id number] COMPREHENSIVE (65597) ALT (SGPT) 14 [iU]/L (Normal) Range: 0-32 [...] 6-24 Glucose 83 mg/dL (Normal) Range: 65-99 02-Mrv-60047:38 LIPOPROTEIN, BLD, BY NMR Comments: PATIENT WAS FASTINGPERFORMED BY: BN [facility] [address] [id number] BY: CB [facility] [address] [facility] [id number] (23851) LP-IR Score <25 (Normal) Comments: INSULIN RESISTANCE MARKER <--Insulin Sensitive Insulin Resistant--> Percentile in Reference PopulationInsulin Resistance ScoreLP-IR Score Low 25th 50th 75th High <27 27 45 63 >63LP-IR Score is inaccurate if patient is non-fasting. .The LP-IR score is a laboratory developed i ndex that has beenassociated with insulin resistance and [...] were developed and their performance characteristicsdetermined by [employer]. These assays have not been cleared by [...] 1600 - 2000 Very High > 2000 71-Kos-76395:38 CBC W/AUTO DIFF WBC Comments: PATIENT WAS FASTINGPERFORMED BY: BN [place] [address] [facility] [id number] BY: [facility]6370 [facility] [id number] (10593) Immature Grans (Abs) 0.0 {x10E3/uL} (Normal) Range: [...] 3.77-5.28 WBC 8.2 {x10E3/uL} (Normal) Range: 3.4-10.8 79-Age-311707:56 URINE EDWARD CULTURE-SHANAE COL Comments: PATIENT NOT FASTINGPERFORMED BY: [facility]6[address] [facility] [id number] Information: SRC:UC COUNT (63593) Result 1 MUG (Normal) Comments: Mixed urogenital flora1,000 Colonies/mL Urine Culture,Comprehensive Final report (Normal) 94-Uvl-283067:11 Urinalysis, Office (15111) UA - LEUKOCYTE ESTERASE Negative (Normal) UA - NITRITE Negative (Normal) URINE UROBILINGN SHANAE TIMED Normal mg/dL (Normal) UA - PROTEIN Negative mg/dL (Normal) UA - PH 6 (Abnormal) UA - BLOOD Hemolyzed Trace (Normal) UA - SPECIFIC GRAVITY 1.030 (Abnormal) UA - KETONES Negative mg/dL (Normal) UA - BILIRUBIN Negative (Normal) UA - GLUCOSE Negative (Normal) 70-Pkb-44636:55 Albumin, 24-Hr Urine Comments: PATIENT NOT FASTINGPERFORMED BY: [employer] [place] [id number] Albumin,Urine mg/day 34.8 {mg/day} (Abnormal) Albumin, Urine 34.8 ug/mL (Normal) :56 Protein Electro, Random Urine Comments: PATIENT WAS FASTINGPERFORMED BY: [facility]ju.[facility]At[facility] [id number] Please note: SPRCS (Normal) Comments: Protein electrophoresis scan will follow via computer, mail, orcourier delivery. M-Jas, % Not Observed % (Normal) Gamma Globulin, U 7.5 % (Normal) Beta Globulin, U 15.8 % (Normal) Sckbs-8-Agisjtoc, U 4.0 % (Normal) Cwqys-0-Xbcbapzi, U 2.8 % (Normal) Albumin, U 69.9 % (Normal) Protein,Total,Urine 7.5 mg/dL (Normal) :55 Total Protein,24 Hour Comments: PATIENT NOT FASTINGPERFORMED BY: [facility]ju.comAt[facility] [id number] Information: START 12/11/17@651AM Urine (64876) Prot,24hr calculated 119 {mg/24_hr} (Normal) Range: 30-150 Protein,Total,Urine 11.9 mg/dL (Normal) :56 LIPID PANEL (84441) Comments: PATIENT WAS FASTINGPERFORMED BY: [facility]At[facility] [id number] LDL/HDL Ratio 1.5 {ratio_units} (Normal) Range: 0.0-3.2 Comments: LDL/HDL Ratio Men Women 1/2 Avg.Risk 1.0 1.5 Av g.Risk 3.6 3.2 2X Avg.Risk 6.2 5.0 3X Avg.Risk 8.0 6.1 LDL Cholesterol Calc 105 mg/dL (Abnormal) Range: 0-99 VLDL Cholesterol Pete 17 mg/dL (Normal) Range: 5-40 HDL Cholesterol 69 mg/dL (Normal) Triglycerides 86 mg/dL (Normal) Range: 0-149 Cholesterol, Total 191 mg/dL (Normal) Range: 100-199 67-Ero-976648:56 MICROALBUMIN: CREATININE RATIO Comments: PATIENT WAS FASTINGPERFORMED BY: [employer]70 [facility] [id number] (46129) AND (48695) Microalb/Creat Ratio 87.3 {mg/g_creat} (Abnormal) Range: 0.0-30.0 Microalbumin, Urine 41.4 ug/mL (Normal) Creatinine, Urine 47.4 mg/dL (Normal) 47-Edd-370961:56 METABOLIC PANEL, COMPREHENSIVE Comments: PATIENT WAS FASTINGPERFORMED BY: [employer]70 [facility] [id number] (15521) ALT (SGPT) 15 [iU]/L (Normal) Range: 0-32 [...] Glucose, Serum 84 mg/dL (Normal) Range: 65-99 46-Hgr-496206:56 CBC W/AUTO DIFF WBC (94899) Comments: PATIENT WAS FASTINGPERFORMED BY: LabCoVirtua VoorheesLjwbjo6155 [facility] [id number] Immature Grans (Abs) 0.0 {x10E3/uL} (Normal) Range: [...] 3.77-5.28 WBC 6.1 {x10E3/uL} (Normal) Range: 3.4-10.8 :56 Serum Protein Electrophoresis Comments: PATIENT WAS FASTINGPERFORMED BY: [employer] Nsqrjv3774 [facility] [id number] (SPEP) (73027) Please note: SPRCS (Normal) Comments: Protein electrophoresis scan will follow via computer, mail, orcourier delivery. A/G Ratio 1.3 (Normal) Range: 0.7-1.7 Globulin, Total 3.0 g/dL (Normal) Range: 2.2-3.9 M-Jas Not Observed g/dL (Normal) Gamma Globulin 1.0 g/dL (Normal) Range: 0.4-1.8 Beta Globulin 1.1 g/dL (Normal) Range: 0.7-1.3 Kbuac-5-Xkwsexrp 0.7 g/dL (Normal) Range: 0.4-1.0 Rkjja-5-Yunjtpjk 0.2 g/dL (Normal) Range: 0.0-0.4 Albumin 3.9 g/dL (Normal) Range: 2.9-4.4 :56 MAGNESIUM (92418) Comments: PATIENT WAS FASTINGPERFORMED BY: [employer] Zgxizk5455 [facility] HospitalSelftradeAtrium Health [facility] [id number] Magnesium, Serum 2.1 mg/dL (Normal) Range: 1.6-2.3 :56 PHOSPHORUS (29064) Comments: PATIENT WAS FASTINGPERFORMED BY: [employer] Yfxhto2177 [facility] [place] [id number] Phosphorus, Serum 3.1 mg/dL (Normal) Range: 2.5-4.5 :56 CALCIFEDIOL (50179) Comments: PATIENT WAS FASTINGPERFORMED BY: [employer] Idfsmz7919 [facility] [id number] Vitamin D, 25-Hydroxy 39.0 ng/mL (Normal) Range: 30.0-100.0 Comments: Vitamin D deficiency has been defined by the [place] ofMedicine and an Endocrine Society practice guideline as alevel of serum 25-OH vitamin D less than 20 ng/mL (1,2).The Endocrine Society went on to further define vitamin Dinsufficiency as a level between 21 and 29 ng/mL (2).1. IOM ([place] of Medicine). 2010. Dietary reference intakes for calcium and D. [place]: The National Academies Press.2. Chriss MF, Ez MUSE, Kilo MCCORMICK, et al. Evaluation, treatment, and prevention of vitamin D deficiency: an Endocrine Society clinical practice guideline. JCEM. 2010; 96(7):1911-30. :56 PARATHORMONE (68600) Comments: PATIENT WAS FASTINGPERFORMED BY: [employer]6370 [facility] [id number] PTH, Intact 30 pg/mL (Normal) Range: 15-65 77-Ori-324303:43 METABOLIC PANEL, COMPREHENSIVE Comments: PATIENT NOT FASTINGPERFORMED BY: alphacityguidesCoPreViserXvoron0015 [facility] [id number] (42497) ALT (SGPT) 10 [iU]/L (Normal) Range: 0-32 [...] Glucose, Serum 83 mg/dL (Normal) Range: 65-99 12-Okn-893548:40 TSH (76951) Comments: week of Aug 04; PATIENT NOT FASTINGPERFORMED BY: [facility]ju.[facility]At[facility] [id number] TSH 4.000 {uIU/mL} (Normal) Range: 0.450-4.500 2-Xlf-770017:10 URINE EWDARD CULTURE-IDENTIFICATN Comments: PATIENT NOT FASTINGPERFORMED BY: [facility]ju.[facility]At[facility] [id number] (36614) Result 1 MUG (Normal) Comments: Mixed urogenital flora10,000-25,000 colony forming units per mL Urine Final report (Normal) Culture,Comprehensive 6-Vyr-106613:10 URINALYSIS (41193) Comments: PATIENT NOT FASTINGPERFORMED BY: [facility]ju.comAt[facility] [id number] Microscopic Examination MICNIP (Normal) Comments: Microscopic not indicated and not performed. Nitrite, Urine Negative (Normal) Urobilinogen,Semi-Qn 0.2 mg/dL (Normal) Range: 0.2-1.0 Bilirubin Negative (Normal) Occult Blood Negative (Normal) Ketones Negative (Normal) Glucose Negative (Normal) Protein Negative (Normal) WBC Esterase Negative (Normal) Appearance Clear (Normal) Urine-Color Yellow (Normal) pH 7.0 (Normal) Range: 5.0-7.5 Specific [place] 1.007 (Normal) Range: 1.005-1.030 :10 MICROALBUMIN: CREATININE RATIO Comments: PATIENT NOT FASTINGPERFORMED BY: [employer]70 SummitIGAt[facility] Health [facility] [id number] (39899) AND (63894) Microalb/Creat Ratio 77.2 {mg/g_creat} (Abnormal) Range: 0.0-30.0 Microalbumin, Urine 26.4 ug/mL (Normal) Creatinine, Urine 34.2 mg/dL (Normal) 7-Cga-281447:10 Metabolic Panel, Comments: PATIENT NOT FASTINGPERFORMED BY: [employer]70 [facility] [id number] Information: SRC: Comprehensive (51363) ALT (SGPT) 13 [iU]/L (Normal) Range: 0-32 [...] Glucose, Serum 68 mg/dL (Normal) Range: 65-99 8-Wzp-469038:10 T4, FREE (THYROXINE) (50962) Comments: PATIENT NOT FASTINGPERFORMED BY: [employer]70 [facility] [id number] T4,Free(Direct) 1.03 ng/dL (Normal) Range: 0.82-1.77 :10 T3, FREE (TRIDOTHYRONINE) (60968) Comments: PATIENT NOT FASTINGPERFORMED BY: [facility]6370 [facility] [id number] Triiodothyronine,Free,Serum 2.8 pg/mL (Normal) Range: 2.0-4.4 1-Hyy-803455:10 TSH (86017) Comments: PATIENT NOT FASTINGPERFORMED BY: LabTr[facility] Hospital6370 [facility] [id number] TSH 5.160 {uIU/mL} (Abnormal) Range: 0.450-4.500 36-Znd-496921:33 Serum Creatinine AND GFR Comments: [facility] [address] [place], [place], [address] EST GFR - AA 61 mL/min (Normal) Comments: GFR Calc EST GFR 50 mL/min (Abnormal) Comments: Non- GFR Calc CREAT,SERUM 1.22 mg/dL (Abnormal) Range: 0.55-1.02 Comments: The validity of the calculated GFR AND GFRAA in patients over70 years has not been determined. Clinical correlation isessential. :14 CBC W/Diff, Automated Comments: [facility] [address] [place], [place], [address] Absolute Lymph 1.12 {X10_3/ul} (Normal) Range: 0.83-4.51 [...] Range: 4.4-11.0 22-Mar-20178:14 Comprehensive Metabolic Profil Comments: [facility] [address]iyf[address] [place], [place], [id number] GAP 9 (Normal) Range: 5-15 CO2 26.0 [...] (Normal) Range: 70-110 :14 Free T3 Comments: [facility] [address] [place], [place], [id number] FREE T3 2.2 pg/mL (Normal) Range: 2.18-3.98 :14 Lipid Profile Comments: [facility] [address] [place], [place], [address] VLDL 23 mg/dL (Normal) Range: 5-40 LDL [...] High Risk 22-Mar-20178:14 Microalb:Creat Ratio,Random UR Comments: [facility] [address] [place], [address] MALB:CREAT 18.6 {mg/g_CRE} (Normal) MICROALBUMIN,UR 18.6 mg/L (Normal) UR CREAT 100.00 mg/dL (Normal) 22-Mar-20178:14 T4 Free Direct Comments: [facility] [address] [place], [place], [id number] T4 FREE DIRECT 0.83 ng/dL (Normal) Range: 0.76-1.46 22-Mar-20178:14 Thyroid Peroxidase AB Comments: [facility] (refer to report for specific site)refer to report for address and phone number TPO AB 2310 15 {IU/mL} (Normal) Range: 0-34 Comments: Performed at: [facility] [address] [id number] Director: West Spivey PhD, Phone: [phone] 22-Mar-20178:14 Thyroid Stim Hormone (TSH) Comments: [facility] [address] [place] [address], [address] TSH 6.38 {uIU/mL} (Abnormal) Range: 0.358-3.74 :14 Urinalysis, Complete Comments: How was Urine Obtained? [facility] [address] [place] [address], [address] MUCUS, URINE 0 SEEN {/hpf} (Normal) [...] (Normal) CLARITY Clear (Normal) COLOR Yellow (Normal) 14-Arf-598137:10 Mycoplasma pneu. IgG/IgM Abs Comments: PATIENT NOT FASTINGPERFORMED BY: [facility] [id number] M pneumoniae IgM Abs <770 U/mL (Normal) [...] showing a significant increase in antibody levels. 32-Sug-85903:56 Bordetella Pertussis PCR Comments: PATIENT NOT FASTINGPERFORMED BY: [employer] [address] [id number] Information: NASAL (93817) Bordetella parapertussis DNA Negative (Normal) Comments: This test was developed and its performance characteristics determinedby [employer]. It has not been cleared or approved by theU.S. Food and Drug Administration. The FDA has determined that lino chclearance or approval is not necessary. This test is used for clinicalpurposes. It should not be regarded as investigational or research. Bordetella pertussis DNA Negative (Normal) 7-Vin-487031:50 CPK Total, Creatine Kinase Comments: [facility] [address] [place], [address] CPK TOTAL 116 U/L (Normal) Range: 26-192 9-Pud-797546:02 CBC with auto diff Comments: PATIENT NOT FASTINGPERFORMED BY: EnCoateVirtua VoorheesRjhggd6920 [facility] [id number] Information: [id number] (74034) Immature Grans (Abs) 0.0 {x10E3/uL} (Normal) Range: [...] 3.77-5.28 WBC 7.3 {x10E3/uL} (Normal) Range: 3.4-10.8 0-Pyk-625652:46 EDWARD CULTURE-BLOOD (01074) Comments: PATIENT NOT FASTINGPERFORMED BY: COINLABSSM [facility] [id number] Information: SRC:BLD [id number] Result 1 NGFD (Normal) Comments: No aerobic or anaerobic growth in five days. Blood Culture, Routine Final report (Normal) 8-Fqw-133840:01 URINE EDWARD CULTURE-IDENTIFICATN Comments: PATIENT NOT FASTINGPERFORMED BY: [employer] Opzrea7901 [facility] [id number] Information: [id number] (28197) Result 1 MUG (Normal) Comments: Mixed urogenital flora2,000 Colonies/mL Urine Culture,Comprehensive Final report (Normal) 2-Lhk-339787:22 Urinalysis, Office (35640) UA - LEUKOCYTE ESTERASE Negative (Normal) UA [...] Serial specimen #1, #2, #3, or #4: 1[facility] [address] [place], [place], [address] GAP 5 (Normal) Range: 5-15 CO2 26.0 [...] Range: 70-110 :05 CBC W/Diff, Automated Comments: [facility] Fpvaponhua[address] [place], [address] Absolute Lymph 1.64 {X10_3/ul} (Normal) [...] Serial specimen #1, #2, #3, or #4: [address] [place] [address] [place] [address], [address] CKRI 0.9 % (Normal) Range: 0.0-1.4 Comments: [...] Serial specimen #1, #2, #3, or #4: [address] [place] [address] [address] [place], [address] TROPONIN-I < 0.02 ng/mL (Normal) Comments: TROPONIN-I EXPECTED VALUES <0.05 NEGATIVE 0.06 - 0.59 AT RISK OF DE > OR = 0.60 SUGGEST DE Ferritin (60388) Comments: PATIENT NOT FASTINGPERFORMED BY: [facility] Attndk3617 [facility] [id number] Ferritin, Serum 47 ng/mL (Normal) Range: 15-150 Sed Rate Erythrocyte (62722) Comments: PATIENT NOT FASTINGPERFORMED BY: LabCoVirtua VoorheesFjtviq7261 [facility] [id number] Sedimentation Rate-Westergren 2 mm/h (Normal) Range: 0-32 MICROALBUMIN: CREATININE RATIO Comments: PATIENT NOT FASTINGPERFORMED BY: [facility] Hluces6298 [facility] [id number] (92667) AND (32638) Microalb/Creat Ratio 129.6 {mg/g_creat} (Abnormal) Range: 0.0-30.0 Microalbumin, Urine 97.3 ug/mL (Abnormal) Range: 0.0-17.0 Creatinine, Urine 75.1 mg/dL (Normal) Range: 15.0-278.0 : TSH (07486) Comments: PATIENT NOT FASTINGPERFORMED BY: LabCoVirtua VoorheesOkamhl7802 [facility] [id number] TSH 6.780 {uIU/mL} (Abnormal) Range: 0.450-4.500 METABOLIC PANEL, COMPREHENSIVE Comments: PATIENT NOT FASTINGPERFORMED BY: [facility] Tgalgm0258 [facility] [id number] (51627) ALT (SGPT) 40 [iU]/L (Abnormal) Range: 0-32 [...] Glucose, Serum 78 mg/dL (Normal) Range: 65-99 44-Bov-401921:00 CBC with auto diff Comments: PATIENT NOT FASTINGPERFORMED BY: [facility] Aajwuf8504 [facility] [id number] Information: [id number] (49582) Immature Grans (Abs) 0.0 {x10E3/uL} (Normal) Range: [...] 3.77-5.28 WBC 7.9 {x10E3/uL} (Normal) Range: 3.4-10.8 33-Yby-776118:53 Serum Creatinine AND GFR Comments: [facility] [address] [place], [place], [address] EST GFR - AA 62 mL/min (Normal) Comments: GFR Calc EST GFR 51 mL/min (Abnormal) Comments: Non- GFR Calc CREAT,SERUM 1.21 mg/dL (Abnormal) Range: 0.55-1.20 Comments: The validity of the calculated GFR AND GFRAA in patients over70 years has not been determined. Clinical correlation isessential. :41 URINE EDWARD CULTURE-SHANAE COL Comments: PATIENT NOT FASTINGPERFORMED BY: EnCoateVirtua VoorheesRwhrgj2626 [facility] [id number] Information: SRC:[facility] [id number] COUNT (44033) Result 1 MUG (Normal) Comments: Mixed urogenital flora10,000-25,000 colony forming units per mL Urine Final report (Normal) Culture,Comprehensive 90-Abh-956355:51 COMPLEMENT, TOTAL (CH50) Comments: PATIENT NOT FASTINGPERFORMED BY: [employer] [place] [address] [id number] Information: [id number] (37289) Complement, Total (CH50) 59 U/mL (Normal) Range: 42-62 52-Rxp-940242:52 COMPLEMENT C4 (46025) Comments: PATIENT NOT FASTINGPERFORMED BY: [employer]6370 [facility] [id number] Complement C4, Serum 28 {mg/dL_Adult} (Normal) Range: 9-36 19-Lik-730755:52 COMPLEMENT C3 (71367) Comments: PATIENT NOT FASTINGPERFORMED BY: [place] 9109770 [facility] [id number] Complement C3, Serum 118 {mg/dL_Adult} (Normal) Range: 90-180 80-Njt-619425:52 CBC, Platelets & Auto Comments: PATIENT NOT FASTINGPERFORMED BY: [employer] 6002270 [facility] [id number] Information: [id number] Diff (39267) Immature Grans (Abs) 0.0 {x10E3/uL} (Normal) Range: [...] Panel, Comprehensive Comments: PATIENT NOT FASTINGPERFORMED BY: [employer]70 SummitIGAt[facility] Health [facility] [id number] (14496) ALT (SGPT) 13 [iU]/L (Normal) Range: 0-32 [...] Glucose, Serum 82 mg/dL (Normal) Range: 65-99 71-Dff-652918:28 URINE EDWARD CULTURE-IDENTIFICATN Comments: PATIENT NOT FASTINGPERFORMED BY: MynewMD6370 ReinaCarRentalsMarketDosher [facility] Hospital [id number] (72560) Result 1 MUG (Normal) Comments: Mixed urogenital flora50,000-100,000 colony forming units per mL Urine Final report (Normal) Culture,Comprehensive 33-Xti-142554:28 MICROALBUMIN: CREATININE Comments: PATIENT NOT FASTINGPERFORMED BY: [facility] [id number] Information: [id number] RATIO (50934) AND (76056) Microalb/Creat Ratio 125.4 {mg/g_creat} (Abnormal) Range: 0.0-30.0 Microalbumin, Urine 224.4 ug/mL (Abnormal) Range: 0.0-17.0 Creatinine, Urine 179.0 mg/dL (Normal) Range: 15.0-278.0 02-Pcs-626863:08 Urinalysis, Office (19317) UA - LEUKOCYTE ESTERASE Negative (Normal) UA - NITRITE Negative (Normal) URINE UROBILINGN SHANAE TIMED Normal mg/dL (Normal) UA - PROTEIN 100 mg/dL (Normal) UA - PH 6.5 (Normal) UA - BLOOD Non Hemolyzed Moderate (Normal) UA - SPECIFIC GRAVITY 1.030 (Abnormal) UA - KETONES Negative mg/dL (Normal) UA - BILIRUBIN Negative (Normal) UA - GLUCOSE Negative (Normal) 5-Eok-209942:59 Free T3 Comments: Test performed at:[facility] [address]spuv[address] [place] [address] FREE T3 2.2 pg/mL (Normal) Range: 2.18-3.98 0-Rgf-310691:59 T4 Free Direct Comments: Test performed at:[facility] Xstsp[address]fyz[address] [place] [address] T4 FREE DIRECT 1.00 ng/dL (Normal) Range: 0.76-1.46 5-Hbf-521453:59 Thyroid Peroxidase AB Comments: Test performed at:[facility] Qaytobdp[address] [place] [address] TPO AB 6676 8 {IU/mL} (Normal) Range: 0-34 Comments: Performed at: [facility] [id number] Director: West Spivey PhD, Phone: [phone] 3-Afu-367672:59 Thyroid Stim Hormone (TSH) Comments: Test performed at:[facility] Xwcdhtykjl[address] Maxwell[place], [place] [id number] TSH 2.15 {uIU/mL} (Normal) Range: 0.358-3.74 97-Cnx-880040:51 Microscopic Examination Comments: PATIENT NOT FASTINGPERFORMED BY: [address] [id number] Bacteria Few (Normal) Mucus Threads Present (Normal) Epithelial Cells (non renal) 0-10 {/hpf} (Normal) Range: 0 - 10 RBC 0-2 {/hpf} (Normal) Range: 0 - 2 WBC 0-5 {/hpf} (Normal) Range: 0 - 5 36-Yqd-612746:51 Thyroxine (T4) Free, Comments: PATIENT NOT FASTINGPERFORMED BY: [address] [id number] Information: [id number] Direct, S T4,Free(Direct) 1.02 ng/dL Range: 0.82-1.77 (Normal) 28-Feb-2015 Triiodothyronine,Free,Seru 2.3 pg/mL (Normal) Comments: PATIENT NOT FASTINGPERFORMED BY: [facility]6370 [facility] [id number] 10:51 m Range: 2.0-4.4 28-Feb-2015 Written Authorization WAR (Normal) Comments: PATIENT NOT FASTINGPERFORMED BY: [facility]6370 [facility] [id number] 10:51 Comments: Written Authorization Received.Authorization received from HILLARY RUSSELL [id number] by Mary Christensen 32-Etr-832006:51 Creatine Kinase Total (79985) Comments: PATIENT NOT FASTINGPERFORMED BY: [facility]6370 [facility] [id number] Creatine Kinase,Total,Serum 122 U/L (Normal) Range: 24-173 63-Sxx-468562:51 CALCIFIDIOL (50773) VIT D 25 Comments: PATIENT NOT FASTINGPERFORMED BY: [facility]6370 [facility] [id number] Vitamin D, 25-Hydroxy 28.8 ng/mL (Abnormal) Range: 30.0-100.0 Comments: Vitamin D deficiency has been defined by the [place] ofMedicine and an Endocrine Society practice guideline as alevel of serum 25-OH vitamin D less than 20 ng/mL (1,2).The Endocrine Society went on to further define vitamin Dinsufficiency as a level between 21 and 29 ng/mL (2).1. IOM ([place] of Medicine). 2010. Dietary reference intakes for calcium and D. [place]: The National Academies Press.2. Chriss MF, Ez MUSE, Kilo MCCORMICK, et al. Evaluation, treatment, and prevention of vitamin D deficiency: an Endocrine Society clinical practice guideline. JCEM. 2010; 96(7):1911-30. 74-Wcp-969501:51 TSH (17861) Comments: PATIENT NOT FASTINGPERFORMED BY: [facility] Kdgyjx6879 [facility] [id number] TSH 4.840 {uIU/mL} (Abnormal) Range: 0.450-4.500 :51 URINALYSIS, W/ MICRO (19962) Comments: PATIENT NOT FASTINGPERFORMED BY: LabFre[facility] Lapcwp5265 [facility] [id number] Microscopic Examination See below: (Normal) Comments: Microscopic was indicated and was performed. Microscopic Examination MICRON (Normal) Comments: Microscopic follows if indicated. Nitrite, Urine Negative (Normal) Urobilinogen,Semi-Qn 0.2 mg/dL (Normal) Range: 0.0-1.9 Bilirubin Negative (Normal) Occult Blood Negative (Normal) Ketones Negative (Normal) Glucose Negative (Normal) Protein Trace (Normal) WBC Esterase Negative (Normal) Appearance Clear (Normal) Urine-Color Yellow (Normal) pH 7.0 (Normal) Range: 5.0-7.5 Specific [place] 1.018 (Normal) Range: 1.005-1.030 :51 METABOLIC PANEL, COMPREHENSIVE Comments: PATIENT NOT FASTINGPERFORMED BY: EnCoateVirtua VoorheesVerfip8460 [facility] [id number] (61149) ALT (SGPT) 11 [iU]/L (Normal) Range: 0-32 [...] Glucose, Serum 86 mg/dL (Normal) Range: 65-99 54-Ayf-889557:51 CBC with auto diff Comments: PATIENT NOT FASTINGPERFORMED BY: [facility]6370 [facility] [id number] Information: [id number] (05322) Immature Grans (Abs) 0.0 {x10E3/uL} (Normal) Range: [...] 3.77-5.28 WBC 4.7 {x10E3/uL} (Normal) Range: 3.4-10.8 63-Nur-943727:46 Metabolic Panel, Basic Comments: PATIENT NOT FASTINGPERFORMED BY: LabCoVirtua VoorheesPeztwo4349 [facility] [id number] Information: [id number] (56914) Calcium, Serum 9.2 mg/dL (Normal) Range: 8.7-10.2 [...] Glucose, Serum 79 mg/dL (Normal) Range: 65-99 15-Oew-923557:08 CPK 85 U/L (Normal) Range: 26-192 77-Fnk-864384:02 CPKISO tCKBB 0 % (Normal) Comments: Performed at: [facility] [employer] [id number] Director: Emmanuel Cary MD, Phone: [phone] tCKMACI 0 % (Normal) tCKMB 0 % (Normal) Range: 0-3 tCKMM 100 % (Normal) Range: 97-100 tCKMACII 0 % (Normal) tCPK 81 U/L (Normal) Range: 24-173 19-Zle-569885:02 MYOS 52 ng/mL (Normal) Range: 25-58 Comments: Performed at: [facility] [employer] [id number] Director: Emmanuel Cary MD, Phone: [phone] :24 BMP CO2 27.0 mmol/L (Normal) Range: [...] 37.1 mg/L (Normal) CREU 191.6 mg/dL (Normal) 69-Mpi-327600:42 CPK 3766 U/L (Abnormal) Range: 26-192 49-Qjb-341862:42 CPKISO tCPK 4094 Comments: TEST RESULT LIMITSCK, Total+Isoenzymes, SerumCreatine Kinase,Total,Serum 4094 U/L H 24 - 173CK Isoenzymes:Macro Type 2 0 % Not Observe (Normal) dCK-MM 100 % 97 - 100Macro Type 1 0 % Not ObservedCK-MB 0 % 0 - 3CK-BB 0 % 0 TESTING PERFORMED AT [facility]. ORIGINAL REPORT ONFILE IN LAB CONTAINS ADDITIONAL TEST SITE INFORMATION. 1 MYOS 1188 Range: 25-58 7 ng/mL Comments: Performed at: [address] [id number] Director: Emmanuel Cary MD, Phone: [phone] - (Abnormal D ) e c - 2 0 1 3 1 6 : 4 2 09-Xoj-527892:52 MRSAD tMRSA Negative (Normal) SOURCE: NASAL SWAB (Normal) 83-Pne-846582:09 CUV VAC See Note (Normal) Comments: No [...] NegativeNo Herpes simplex virus isolated.Performed at: - Lab[address] [id number] Director: Gee Lord PhD, Phone: [phone] :18 CDIF See Note (Normal) Comments: A [...] ng/mL 25 - 58 TESTING PERFORMED AT [facility]. ORIGINAL REPOR T ONFILE IN LAB CONTAINS ADDITIONAL TEST SITE INFORMATION. :41 MISC2 (Normal) Comments: TEST RESULT LIMITSCarnitine, Total and FreeCarnitine, Total 56 umol/L 25 - 69Carnitine, Free 38 umol/L 16 - 60Esterified/Free 0 .5 Ratio 0.1 - 0.9Esterified/Free Ratio is a calculated value equal to TotalCarnitine minus Free Carnitine divided by the FreeCarnitine. _TESTING PERFORMED AT [facility]. ORIGINAL REPORT ONFILE IN LAB CONTAINS ADDITIONAL TEST SITE INFORMATION. :41 ZI 77 ug/dL (Normal) Range: 56-134 Comments: Detection Limit = 5Performed at: [facility] [employer] [id number] Director: Gee Lord PhD, Phone: [phone] at: [facility] [employer] [place], [place] [id number] Director: Ketan Lopez MD, Phone: [phone] 18-Jun-20138:52 Urinalysis, Office (45644) UA - BILIRUBIN Negative (Normal) UA - BLOOD Negative (Normal) UA - GLUCOSE Negative (Normal) UA - KETONES Negative mg/dL (Normal) UA - LEUKOCYTE ESTERASE Negative (Normal) UA - NITRITE Negative (Normal) UA - PH 7.0 (Normal) UA - PROTEIN Trace mg/dL (Normal) UA - SPECIFIC GRAVITY 1.025 (Normal) Comments: 1.030 URINE UROBILINGN SHANAE TIMED Normal mg/dL (Normal) 3-Ahc-356703:13 Pathology Report Comments: PERFORMED BY: [facility] Gmlb62806 [facility] [id number] BY: Edmund# [facility] Tun[facility]erm615 [facility] [id number] Information: [id number] See MATER Comments: Material submitted: .VULVA BXClinical [...] INRARE MOSTLY INDIVIDUAL SCATTERED LYMPHOCYTES. NO SIGNIFICANT [id number] IS APPRECIATED. BOTH CD10 AND BCL-6 STAININDIVIDUAL [...] SUBMITTED IN TOTO IN A SINGLE CASSETTE.XJW/BXSCPT .418012, 909903, R38350, G21790, G84283, Z22578, P8 3425, X30452, N56582,O91951, H98740, Z61441, S57911, 272859, 186367 1 HS12 Comments: The specimen submitted does not meet the laboratory'scriteria for acceptability. Refer to [facility]'s Directory ofServices for specimen acceptability criteria.RECEIVED: VIRAL TRANSPORTREQUIRES: SERUMCONTA 1 (Normal) CTED LAURA APPLE AT YOUR FACILITY 4-83-02JAHNHMD: PERFORM [id number] HSV CULTURE WITH TYPINGNegative <0.9Equivocal 0.9 - 1.0Positive >1.0.Note: Negative indicates no antibodies detected - toeither HSV-1 or HSV-2. Equivocal may suggest earlyinfection. If clinically appropriate, retest at alater date. Positive indicates antibodies detectedto HSV-1 and/or HSV-2. M a r - 2 0 1 3 1 2 : 1 7 03-Pdx-862293:23 CBCD ANC 4.1 3/uL (Normal) Range: 2.0-7.7 [...] 4.2-5.4 WBC 5.8 K/mm3 (Normal) Range: 4.4-11.0 22-Uoy-824825:23 CKMB CPKMB 1.3 ng/mL (Normal) Range: 0.0-5.0 Comments: CK-MB and RI Interpretation MB Relative Index Non-AMI <or= 5 NA Indeterminate > 5 <or= 4 AMI > 5 > 4 CPK 123 U/L (Normal) Range: 26-192 09-Htj-848715:23 CMP GAP 9 (Normal) Range: 5-15 CO2 [...] 7-18 GLU 89 mg/dL (Normal) Range: 70-110 99-Rkm-829166:23 TROP < 0.02 ng/mL (Normal) Comments: TROPONIN-I EXPECTED VALUES <0.05 NEGATIVE 0.06 - 0.59 AT RISK OF DE > OR = 0.60 SUGGEST DE 25-Aug-20120:00 BRAIN W/WO CONTRAST Radiology Report See [...] Lutz M.D.August 25, 2012 at 2:18:09 PM [id number] Signed DN/DN If you are the referring physician and would like to consult with theradiologist who provided th is interpretation, please contact Lorena Velazquez M.D. at [phone]. If this radiologist is unavailable, youwillbe directed to another radiologist to assist. If you are a patient with a question rega rding this report, pleasecontactyour referring physician directly. Professional Interpretation Provided By: [employer], Phone , These documents contain legally protected [...] ITS IMPORTSign by LORENA LUTZ MD on 08/25/12 1424 Sign by: LORENA LUTZ MD 25-Aug-20120:00 MRA HEAD WITHOUT CONTRAST Radiology Report See Note (Normal) Comments: PROCEDURE: MRA OF THE HEAD WITHOUT CONTRAST REASON FOR EXAM: Female, 41 years old. Memory loss with episodes ofconfusion and difficulty finding words. TECHNIQUE: 3-D ejuf-cw-conkhw (TOF) imaging was performed with MIPs.Thestudy was [...] of the anterior cerebral artery. Normal left Z7hzpytzfu of the anterior cerebral artery. Normal intact anteriorc ommunicating artery (ACOM). Normal visualized proximal bilateral T3rknvfxbg of the anterior cerebral arteries. Normal right [...] is no demonstra mara aneurysm of the habematolel of Melendez, within thetechnical limitations of this modality. No demonstrated hemodynamicallysignificant stenosis or major branch occlusion. IMPRESSION:No significant abnormal ity of visualized intracranial vasculature. Signed:Lorena Lutz M.D.August 25, 2012 at 2:24:09 PM [id number] Signed DN/DN If you are the referring physician and would like to cons ult with theradiologist who provided this interpretation, please contact Lorena Velazquez M.D. at [phone]. If this radiologist is unavailable, youwillbe directed to another radiologist to assist. If you are a patient with a question regarding this report, pleasecontactyour referring physician directly. Professional Interpretation Provided By: [employer], Phone , Thes e documents contain legally [...] LORENA LUTZ MD on 08/25/121755 Sign by: LORENA LUTZ MD 9-Ilb-868881:19 ANCA tATYPANCA <1:20 {titer} Comments: The atypical pANCA pattern has been observed in asignificant percentage of patients with ulcerative colitis,primary sclerosing cholangitis and autoimmune hepatitis.Performed at: - [facility] (Normal) [place], [place] [id number] Director: Katelin Swift MD, Phone: [phone] tANCAP <1:20 {titer} Comments: The presence of positive fluorescence exhibiting P-ANCA orC-ANCA patterns alone is not specific for the diagnosis ofWegener's Granulomatosis (WG) or microscopic polyangiitis.Decisions about treatment sh (Normal) ould not be based solely onANCA IFA results. The International ANCA Group Consensusrecommends follow up testing of positive sera with both ND-3 and MPO-ANCA enzyme immunoassays. As many as 5% serumsamp les are positive only by EIA. Ref. AM J Clin Liktmz5436;111:507-513. tANCAC <1:20 {titer} (Normal) 06-Xit-812725:3 MISC . (Normal) Comments: TEST RESULT LIMITSANCA PanelAntimyeloperoxidase (MPO) Abs < 9.0 U/mL 0.0 - 9.0Antiproteinase 3 (ND-3) Abs < 3.5 U/mL 0.0 - 3.5Cytoplasmic [...] up testing of positive sera with both ND-3and MPO-ANCA enzyme immunoassays. As many as 5% serumsamples are positive only by EIA.Ref. AM J Clin Pathol 1999;111:507-513.Atypical pANCA < 1:20 titer Neg:<1:20The atypical pANCA pattern has been observed in asignificant percentage of patients with ulcerative colitis,primary sclerosing cholangitis and autoimmune hepatitis. TESTING PERFORMED AT [facility]. ORIGINAL REPORT ON FILE IN LAB CONTAINS ADDITIONAL TEST SITE INFORMATION. 33-Ley-069133:52 BILAT SCRN DIGITAL & CAD Radiology Report [...] Leone M.D.June 30 12 at 4:03:08 PM [id number] Signed GP/GP If you are the referring physician and would like to consult with theradiologist who provided this interpretation, please contact Jeremie moreira M.D. at [phone]. If this radiologist is unavailable, youwill be directed to another radiologist to assist. If you are a patient with a question regarding this report, pleasecontactyour refer ring physician directly. Professional Interpretation Provided By: [employer], Phone , These documents contain legally protected [...] documents. Dictated on 06/30/12 1453 by Sulema Rutledge,Karmenscribed on 06/30/12 1608 by ITS IMPORTSign by Oni Leone MD on 06/30/12 1609 Sign by: Oni Leone MD 27-May-2012 C3 92 (Normal) Range: 90-180 11:56 Comments: INFCE Result Units: mg/dL AdultPerformed at: [facility] [id number] Director: Katelin Swift MD, Phone: [phone] 27-May-2012 C4 24 (Normal) Range: 9-36 11:56 Comments: INFCE Result Units: mg/dL Adult 07-Cqt-020319:56 CBCD ANC 3.4 3/uL (Normal) Range: 2.0-7.7 [...] 4.2-5.4 WBC 4.4 K/mm3 (Normal) Range: 4.4-11.0 :56 CMP Comments: Interface Comments: VERIFIED DX 03/24/12 AST Order Date: 03/24/12Diagnosis: 782.3 - SYMPTOMS INVOLVING SKIN AND OTHER INTEGUMENTARY TISSUE, EDEMA (782.3)OV Order #: [id number] ID: [id number] ORDERED DENISSEDRCHELI HAS A COPY TO GO TO GAP [...] 7-18 GLU 84 mg/dL (Normal) Range: 70-110 :56 MG 1.9 mg/dL (Normal) Comments: Interface Comments: VERIFIED DX 03/24/12 AST Order Date: 03/24/12Diagnosis: 782.3 - SYMPTOMS INVOLVING SKIN AND OTHER INTEGUMENTARY TISSUE, EDEMA (782.3)OV Order #: [id number] ID: [id number].SHAMEKANEFTALII ORDERED BMPDR.EVERETT HAS A COPY TO GO TO Range: 1.8-2.4 :56 PHOS 2.9 mg/dL (Normal) Comments: Interface Comments: VERIFIED DX 03/24/12 AST Order Date: 03/24/12Diagnosis: 782.3 - SYMPTOMS INVOLVING SKIN AND OTHER INTEGUMENTARY TISSUE, EDEMA (782.3)OV Order #: [id number] ID: [id number] ORDERED BMPDRCHELI HAS A COPY TO GO TO Range: 2.5-4.9 :56 PROCRER tPROCRER 207 {mg/g_CRE} (Abnormal) Range: 0-200 PROUR 20.5 mg/dL (Abnormal) CREU 98.9 mg/dL (Normal) :56 PTHIN 63 pg/mL (Normal) Range: 14-72 :56 VITD 43.5 ng/mL (Normal) Range: 30.0-100.0 Comments: Vitamin D deficiency has been defined by the [place] ofMedicine and an Endocrine Society practice guideline as alevel of serum 25-OH vitamin D less than 20 ng/mL (1,2).The Endocrine Society went on to further define vitamin Dinsufficiency as a level between 21 and 29 ng/mL (2).1. IOM ([place] of Medicine). 2010. Dietary reference intakes for calcium and D. [place]: The National Academies Press.2. Chriss MF, Ez [place], Kilo MCCORMICK, et al. Evaluation, treatment, and prevention of vitamin D deficiency: an Endocrine Society clinical practice guideline. JCEM. 2010; 96(7):1911-30. 2-Owf-059269:23 CMP Comments: STATRESULTS FAXED TO DR RUSSELL [...] 7-18 GLU 86 mg/dL (Normal) Range: 70-110 9-Sap-429647:23 CPK 154 U/L (Normal) Comments: STATRESULTS FAXED TO DR RUSSELL 03/24/12 VÍCTOR AZUL. Range: 26-192 84-Hcf-001797:53 ABDOMEN/PELVIS WITHOUT CONT Radiology Report See Note [...] with mild facet and ligamento us hypertrophy [id number] S1 with mild foraminal and spinal stenosis. [...] EDTElectronically Signed PF/PF Professional Interpretation Provided By: [facility] [employer], , To consult with a radiologist regarding thi s report, please call our [id number] line @ Dictated on 03/13/12 1559 by Nicholas William MDTranscribed on 03/13/121652 by ITS IMPORTSign by Nicholas William MD on 03/13/121652 Sign by: Nicholas William MD 85-Hlg-547451:30 Urinalysis, Office (05876) UA - BILIRUBIN Negative (Normal) UA - [...] 24HR Comments: URINE STARTED 01/12 @6AMURINE ENDED 01/13 @6AM 24hr UR PROTEIN 170 {MG/24HR} (Abnormal) UR TOTAL VOLUME 1950 mL (Normal) URINE PROTEIN 8.7 mg/dL (Normal) UR COLLECT TIME 24.0 {HOURS} (Normal) 84-Lkx-618315:36 COMP METABOLIC GAP 8 (Normal) Range: 5-15 [...] 7-18 GLU 103 mg/dL (Normal) Range: 70-110 84-Ndl-068490:27 CBCD,SMEAR DIFF RED CELL MORPH SeeNote {NORMAL} [...] 4.4-11.0 :27 COMP METABOLIC Comments: MG ADDED 01/01/ GAP 8 (Normal) Range: 5-15 CO2 28.0 [...] (Normal) Comments: MG ADDED 01/01/12 Range: 1.5-2.2 54-Ptd-081803:10 CBCD,SMEAR DIFF ANISO 1+ (Normal) RED CELL [...] 4.2-5.4 WBC 7.1 K/mm3 (Normal) Range: 4.4-11.0 74-Pnw-468954:10 COMP METABOLIC GAP 4 (Abnormal) Range: 5-15 [...] 7-18 GLU 78 mg/dL (Normal) Range: 70-110 09-Iyc-944158:10 MITOCHN AB 6650 <20.0 {Units} (Normal) Comments: appt 12-31-11 Range: 0.0-20.0 Comments: Negative 0.0 - 20.0 Equivocal 20.1 - 24.9 Positive >24.9 . Mitochondrial (M2) Antibodies are found in 90-96% of patients with primary biliary cirrhosis.Performed at: [facility] [employer] [id number] Director: Katelin Swift MD, Phone: [phone] 33-Fwy-998830:14 Urinalysis, Office (57289) UA - NITRITE Negative (Normal) URINE UROBILINGN [...] years) 6.0 - 27.0Roche ECLIA methodologyPerformed at: [facility] [employer] [id number] Director: Katelin Swift MD, Phone: [phone] FSH 4309 4.3 m[iU]/mL Comments: Follicular phase [...] 7-18 GLU 88 mg/dL (Normal) Range: 70-110 64-Obh-381791:52 COMPLETE UA MUCUS, URINE 0 SEEN {/hpf} [...] {IU/mL} (Normal) Range: 0-34 Comments: Performed at: [address] [id number] Director: Katelin Swift MD, Phone: [phone] :52 TSH 4.07 {uIU/mL} (Abnormal) Range: 0.358-3.74 :52 VIT D,25 53606 42.7 ng/mL (Normal) Comments: appt 09/10/11 Range: [...] 7-18 GLU 69 mg/dL (Abnormal) Range: 70-110 99-Xby-549333:11 CPK TOTAL 82 U/L (Normal) Range: 26-192 Comments: Please note: Revised Creatinine Kinase (CK) Reference ramge effective 11/15/10. 9-Wfx-473758:07 BMP Comments: Please Note: TROPONIN REFERENCE RANGE [...] 7-18 GLU 72 mg/dL (Normal) Range: 70-110 0-Yio-667627:07 CBCD ABSOLUTE NEUT 4.1 3/uL (Normal) Range: [...] D-Dimer level indicates no DVT or PE. 1-Dsg-075962:07 TROPONIN-I < 0.02 ng/mL (Normal) Comments: Please Note: TROPONIN REFERENCE RANGE CHANGEEffective OCTOBER 17, 2009. Comments: TROPONIN-I EXPECTED VALUES <0.05 NEGATIVE 0.06 - 0.59 AT RISK OF DE > OR = 0.60 SUGGEST DE :00 CHEST, PA AND LATERAL Radiology Report [...] Rao on 12/20/102006 Sign by: Lupillo Rao 49-Upb-02645:48 UPPER GI SERIES ONLY Radiology Report See [...] 10/03/10850 by Rin Leoneranscribed on 10/03/10850 by MINESHMCKESSONSign by Adrian Leone on 10/05/10917 Sign by: Oni Leone 27-Sep-2010 H.PYLORI [id number] < 0.9 U/mL Range: 0.0-0.8 8:09 (Normal) Comments: Negative <0.9 Indeterminate 0.9 - 1.0 Positive >1.0Performed at: [address] [id number] Director: Katelin Swift MD, Phone: [phone] Plan of Care Name Dates Details Instructions [...] with (acute) exacerbation Planned Observations LIPID PANEL (98730)Indication: Hypercholesteremia On: 74-Sfo-605644:23 Request MICROALBUMIN 24 HOUR OR RANDOM (88604)Indication: Chronic kidney disease, stage III (moderate) On: 21-Fen-823994:19 Request Comments: 24 hour urine for protein T3, FREE (TRIDOTHYRONINE) (70610)Indication: Hypothyroidism (acquired) On: 50-Kex-370812:19 Request T4, FREE (THYROXINE) (04354)Indication: Hypothyroidism (acquired) On: :19 Request TSH (60408)Indication: Hypothyroidism (acquired) On: :17 Request Comments: do this tsh in mid to late december MICROALBUMIN 24 HOUR OR RANDOM (31940)Indication: IgA nephropathy, chronic On: :14 Request Comments: need 24 hour urine for total protein Urine Protein Electrophoresis (UPEP) (31616)Indication: Chronic kidney disease, stage III (moderate) On: 10-Nmc-966008:11 Request T3, FREE (TRIDOTHYRONINE) (60277)Indication: Abnormal TSH On: : Request T4, FREE (THYROXINE) (08648)Indication: Abnormal TSH On: : Request TSH (46886)Indication: Abnormal TSH On: 22-Qyb-629548: Request Anti-TPO Antibody (12673)Indication: Abnormal TSH On: : Request CREATININE BLOOD (97017)Indication: MRI of brain abnormal On: 41-Bmf-01014:59 Request Anti-TPO Antibody (84434)Indication: Hypothyroidism (acquired) On: :49 Request T4, FREE (THYROXINE) (70255)Indication: Hypothyroidism (acquired) On: :49 Request T3, FREE (TRIDOTHYRONINE) (25887)Indication: Hypothyroidism (acquired) On: :49 Request TSH (53579)Indication: Hypothyroidism (acquired) On: :49 Request URINALYSIS, W/ MICRO (94354)Indication: Hypertensive kidney disease On: :49 Request MICROALBUMIN: CREATININE RATIO (96761) AND (01268)Indication: Hypertensive kidney disease On: :49 Request METABOLIC PANEL, COMPREHENSIVE (44360)Indication: Hypertensive kidney disease On: :49 Request CBC W/AUTO DIFF WBC (25186)Indication: Hypertensive kidney disease On: :49 Request LIPID PANEL (48647)Indication: Hypertensive kidney disease On: :49 Request MYCOPLAMA PNEUM AB IgG/IgM 636558 (29534)Indication: Cough On: 76-Tno-045785:41 Request TSH (80283)Indication: Hypothyroidism (acquired) On: 86-Cvf-350173:57 Request CALCIFIDIOL (97306) VIT D 25Indication: CKD (chronic kidney disease) On: :34 Request TSH (29822)Indication: Hypothyroidism (acquired) On: :34 Request METABOLIC PANEL, COMPREHENSIVE (57441)Indication: CKD (chronic kidney disease) On: :34 Request CBC with auto diff (93172)Indication: CKD (chronic kidney disease) On: :34 Request T3, FREE (TRIDOTHYRONINE) (75956)Indication: Hypothyroidism (acquired) On: :40 Request T4, FREE (THYROXINE) (07781)Indication: Hypothyroidism (acquired) On: 73-Zye-917006:40 Request TSH (63822)Indication: Hypothyroidism (acquired) On: :40 Request Anti-TPO Antibody (46853)Indication: Hypothyroidism (acquired) On: 79-Isu-720343:40 Request T3 UPTAKE (95079)Indication: Abnormal TSH On: 22-Tuh-804671:52 Request T4, TOTAL (23333)Indication: Abnormal TSH On: 44-Uqg-952198:52 Request T4, FREE (THYROXINE) (03102)Indication: Abnormal TSH On: 62-Hbf-248084:52 Request TSH (16432)Indication: Abnormal TSH On: 46-Zig-125037:51 Request T4, FREE (THYROXINE) (73428)Indication: Abnormal TSH On: 10-Iul-975741:25 Request T3, FREE (TRIDOTHYRONINE) (02855)Indication: Abnormal TSH On: 95-Ayx-399475:24 Request MYOGLOBIN (19281)Indication: Rhabdomyolysis (Renamed from Disease characterized by destruction of skeletal muscle) On: 94-Tri-893902:33 Request CPK TOTAL & ISOENZYMES (17174)Indication: Rhabdomyolysis (Renamed from Disease characterized by destruction of skeletal muscle) On: 79-Yrk-237083:32 Request FECAL OCCULT HGB ASSAY- tubes sent home (57728)Indication: Well woman exam with routine gynecological exam On: 45-Ilc-378726:12 Request OCCULT BLOOD FECES SCREEN- card done in office (09668)Indication: Well woman exam with routine gynecological exam On: 54-Syx-598219:12 Request Thin prep Pap (03829)Indication: Well woman exam with routine gynecological exam On: 29-Rar-733435:12 Request MICROALBUMIN: CREATININE RATIO (75704) AND (52183)Indication: CKD (chronic kidney disease) On: 2-Huk-111267:02 Request Metabolic Panel, Basic (03261)Indication: Rhabdomyolysis (Renamed from Disease characterized by destruction of skeletal muscle) On: 4-Gsn-861013:53 Request MYOGLOBIN (25963)Indication: Rhabdomyolysis (Renamed from Disease characterized by destruction of skeletal muscle) On: 18-Ijt-450742:04 Request CPK TOTAL & ISOENZYMES (81902)Indication: Rhabdomyolysis (Renamed from Disease characterized by destruction of skeletal muscle) On: 89-Zyz-445568:04 Request MRSA Culture (11654)Indication: Decubitus ulcer of coccyx On: 21-Hoc-727955:40 Request HSV CULTURE SCREEN 889245 (52317)Indication: Genital ulcer, female On: 19-Ljl-52928:55 Request Culture, Aerobic, Bacterial ID ([id number])Indication: Decubitus ulcer of coccyx On: 75-Iwc-70900:39 Request NuSwab STD (STD W/ Herpes) (59706)Indication: Genital ulcer, female On: 81-Zrf-49839:36 Request Comments: intra vaginal area and lesion CULTURE, VAG/CX COMPREHENSIVE (22506)Indication: Genital ulcer, female On: 22-Zcg-69183:44 Request CALCIUM SERUM (62330)Indication: Hypocalcemia On: 6-Oeq-624845:21 Request LACTATE (LACTIC ACID) (69039)Indication: Muscle pain On: :18 Request Comments: stat ZINC, BLOOD (52634)Indication: Muscle pain On: :17 Request Comments: stat MAGNESIUM (61620)Indication: Muscle pain On: :17 Request Comments: stat Metabolic Panel, Comprehensive (46110)Indication: Muscle pain On: :17 Request Comments: stat MYOGLOBIN (44577)Indication: Muscle pain On: :17 Request Comments: stat CPK TOTAL & ISOENZYMES (52663)Indication: Muscle pain On: :17 Request Comments: stat ASSAY, CARNITINE, SHANAE, EACH SPEC (72020)Indication: Muscle pain On: :14 Request OVA & PARASITE DIR SMEAR (18023)Indication: DIARRHEA On: :06 Request OCCULT BLOOD FECES SCREEN (37857)Indication: DIARRHEA On: : Request LEUKOCYTE COUNT, FECAL (92291)Indication: DIARRHEA On: :06 Request C-DIFFICILE, STOOL (96997)Indication: DIARRHEA On: : Request EDWARD CULTURE-STOOL (12582)Indication: DIARRHEA On: : Request Lyme Disease,Serum, Western Blot (76500)Indication: Neck pain on right side On: :07 Request Lyme Disease Antibody W/ Reflex (45241)Indication: Neck pain on right side On: 95-Cyv-862596:07 Request Herpes Simplex II Ag, Direct Fluorescent Ab (92481)Indication: Uncomplicated herpes simplex On: :05 Request Herpes Simplex I Ag, Direct Fluorescent Ab (51241)Indication: Uncomplicated herpes simplex On: 53-Dis-186907:05 Request CBC with manual diff (82234)Indication: Essential hypertension On: 29-Ekl-215566:57 Request Metabolic Panel, Comprehensive (49123)Indication: Essential hypertension On: 52-Aew-245991:15 Request Troponin I (48547)Indication: Chest pain On: 96-Ydf-028718:14 Request Comments: stat CPK MB FRACTION (29160)Indication: Chest pain On: 69-Ilk-168166:14 Request Comments: stat CREATINE KINASE TOTAL (68930)Indication: Chest pain On: 20-Oly-056151:14 Request Comments: stat ANCA-P (ANTI NEUTROPHIL CYTOPLASMIC ANTIBODY)Indication: Memory loss On: 74-Lca-001123:01 Request ANCA-C (ANTI NEUTROPHIL CYTOPLASMIC ANTIBODY)Indication: Memory loss On: 91-Pmm-566294:01 Request Metabolic Panel, Basic (95099)Indication: Edema, unspecified On: 6-Sbv-496976:01 Request Creatine Kinase Total (84964)Indication: Rhabdomyolysis (Renamed from Disease characterized by destruction of skeletal muscle) On: :27 Request Metabolic Panel, Comprehensive (20388)Indication: Rhabdomyolysis (Renamed from Disease characterized by destruction of skeletal muscle) On: :26 Request Metabolic Panel, Comprehensive (68745)Indication: Pruritic disorder On: 34-Wqe-984308:01 Request Potassium Serum (03253)Indication: Hypokalemia On: :47 Request Comments: STAT Calcium Serum (40068)Indication: Hypokalemia On: :47 Request Comments: STAT MAGNESIUM (87494)Indication: Hypokalemia On: :52 Request CBC with manual diff (69826)Indication: Fatigue On: 73-Icv-940148:42 Request Metabolic Panel, Comprehensive (30680)Indication: Hypokalemia On: 62-Iss-425590:41 Request ANTIMITOCHONDRIAL ANTIBODY (55356)Indication: Pruritic disorder On: 68-Ukc-876071:52 Request METABOLIC PANEL, COMPREHENSIVE (69049)Indication: Pruritic disorder On: 04-Zsu-911521:47 Request CBC WITH MANUAL DIFF (11098)Indication: Pruritic disorder On: 50-Lkl-558776:47 Request CREATININE CLEARANCE (23431)Indication: Chronic kidney disease, stage III (moderate) On: 32-Hyj-362436:48 Request 24 hour urine for Protein (63821)Indication: Chronic kidney disease, stage III (moderate) On: 27-Gie-473288:48 Request Metabolic Panel, Basic (81122)Indication: Chronic kidney disease, stage III (moderate) On: 70-Eiu-722879:36 Request MICROALBUMIN: CREATININE RATIO (32700) AND (51215)Indication: Chronic kidney disease, stage III (moderate) On: 12-Cyx-602847:33 Request ESTRADIOL (89674)Indication: Fatigue On: 56-Jtg-732019:58 Request TSH (THYROID STIMULATING HORMONE) (00240)Indication: Abnormal TSH On: 47-Frt-683267:19 Request Comments: check in 8 weeks TSH (42823)Indication: Abnormal TSH On: 50-Qnl-290184:48 Request Anti-TPO Antibody (93014)Indication: Abnormal TSH On: 48 Request DNA ANTIBODY-NATV/DBL ST (97383) test code 852720Crzuwbbbcg: Fatigue On: Request Vitamin D Hydroxy (98259)Indication: Fatigue On: Request VITAMIN B-12 (CYANOCOBALAMIN) (25392)Indication: Fatigue On: Request URINALYSIS, W/ MICRO (11078)Indication: Fatigue On: Request METABOLIC PANEL, COMPREHENSIVE (36165)Indication: Fatigue On: Request CBC WITH MANUAL DIFF (68729)Indication: Fatigue On: Request MONIQUE (ANTINUCLEAR ANTIBODY) (54139)Indication: Fatigue On: Request C-REACTIVE PROTEIN (47843)Indication: Fatigue On: Request SED RATE ERYTHROCYTE (78506)Indication: Fatigue On: Request T4, FREE (THYROXINE) (47367)Indication: Abnormal TSH On: :30 Request T3, FREE (TRIDOTHYRONINE) (75943)Indication: Abnormal TSH On: :30 Request TSH (86388)Indication: Abnormal TSH On: :30 Request Potassium Serum ([id number])Indication: Hypokalemia On: :20 Request Metabolic Panel, Comprehensive ([id number])Indication: Rhabdomyolysis (Renamed from Disease characterized by destruction of skeletal muscle) On: :19 Request Creatine Kinase Total ([id number])Indication: Rhabdomyolysis (Renamed from Disease characterized by destruction of skeletal muscle) On: :19 Request D-Dimer ([id number])Indication: Chest pain On: Request CBC (Auto) ([id number])Indication: Chest pain On: : Request Metabolic Panel, Basic ([id number])Indication: Chest pain On: Request CARDIAC ISOENZYMES ([id number])Indication: Chest pain On: [id number] Request HELICOBACTER PYLORI ANTIBODY ([id number])Indication: Abdominal pain, acute, generalized On: [id number]-Rcf-87325:55 Request Planned Procedures Spirometry ([id number])By: Gerry STRANGE, On: 10-Jun-2018 Intent Rosalinda Paris DO Comments: normal ELECTROCARDIOGRAM, COMPLETE (ECG) On: 10-Jun-2018 Intent ([id number])By: Rosalinda Garrett DO Comments: nsr no acute chg Rosalinda Garrett DO Radiology - Chest- PA and LatBy: On: 30-Oct-2017 Intent Gerry STRANGE, Rosalinda Gerry DO, Rosalinda Breast Ultrasound - LeftBy: Gerry On: 02-Oct-2017 Intent DORosalinda Gerry DO, Rosalinda Spot Compression - LeftBy: Gerry On: 02-Oct-2017 Intent DO, Rosalinda Gerry DO, Rosalinda Spot Compression - RightBy: Gerry On: 02-Oct-2017 Intent Rosalinda STRANGE DO, Kathleen Comments: if needed Breast Ultrasound - RightBy: On: 02-Oct-2017 Intent Rosalinda Garrett DO, DO, Comments: if needed Rosalinda SCREENING DIGITAL TOMOSYNTHESIS OF On: 02-Oct-2017 Intent BREAST ([id number])By: Rosalinda Garrett DO, DO, Kathleen ATTENDED SLEEP STUDY ([id number])By: On: 20-Jun-2017 Intent Lisa CONDE Jolly SCREENING DIGITAL TOMOSYNTHESIS OF On: 11-Apr-2017 Intent BREAST ([id number])By: Rosalinda Garrett DO, DO, Kathleen MRA OF BRAIN ([id number])By: Gerry STRANGE, On: 19-Mar-2017 Intent Rosalinda Paris DO MRI BRAIN W/ CONTRAST ([id number])By: On: 19-Mar-2017 Rosalinda Gaxiola DO, DO, Kathleen ELECTROCARDIOGRAM, COMPLETE (ECG) On: 19-Mar-2017 Intent ([id number])By: Rosalinda Garrett DO Comments: nsr no acute chg Rosalinda Garrett DO Spirometry ([id number])By: Gerry STRANGE, On: 19-Mar-2017 Intent Rosalinda Paris DO Comments: see scanned report Ultrasound - PelvisBy: Gerry STRANGE, On: 20-Feb-2017 Intent Rosalinda Paris DO Spirometry ([id number])By: Gerry STRANGE, On: 05-Dec-2016 Intent Rosalinda Paris DO Comments: normal Aerosol Treatment ([id number])By: On: 05-Dec-2016 Intent Rosalinda Garrett DO, DO, Comments: Albuterol 0.83% given via nebulizer machine. Pt tolerated well.less noise and more a/e Rosalinda Solu- Medrol Injection, 125mg On: 05-Dec-2016 Intent ([id number])By: Rosalinda Garrett DO Comments: 2 ml given im rt glut lot [id number] exp 05/05 Rosalinda Garrett DO Radiology - Cervical SpineBy: On: 26-Mar-2016 Intent Hillary Russell MD Phenergan Injection, up to 50 mg On: 26-Mar-2016 Intent ([id number])By: Hillary Russell MD Toradol Injection, 30 mg On: 26-Mar-2016 Intent ([id number])By: Hillary Russell MD Kenalog Injection, 10 mgm On: 12-Feb-2016 Intent ([id number])By: Hillary Russell MD NEUROPSYCHOLOGICAL TESTING On: 29-Nov-2015 Intent ([id number])By: Hillary Russell MD MRI - Brain (IV Contrast On: 31-Oct-2015 Intent Needed)By: Hillary Russell MD Ultrasound - RenalBy: Lisa CONDE, On: 05-Sep-2015 Intent Amy Joseph Eprescribed prescriptions On: 31-Mar-2014 Intent ([id number])By: Amy Gonzalez CNP MAMMOGRAM, SCREENING, BOTH BREASTS On: 03-Feb-2014 Intent ([id number])By: Hillary Russell MD Radiology - ChestBy: María MARTÍNEZ, On: 01-Feb-2014 Intent Hillary Peng Aerosol Treatment ([id number])By: Lisa On: 25-Jan-2014 Intent Amy CONDE Ultrasound - Abdomen Complete & On: 24-Nov-2013 Intent PelvisBy: Amy Gonzalez CNP Eprescribed prescriptions On: 17-Aug-2013 Intent ([id number])By: Marisela Mata LPN INFUSION, NORMAL SALINE SOLUTION , On: 18-Jun-2013 Intent 1000 CC (Special Coverage Comments: Normal Saline, Lot #[id number], exp. 10/01 1 ltr infused in L AC without difficulty, Instructions Apply. See MCM: 2049) ([id number])By: Amy Gonzalez CNP HYDRATION IV INFUSION, INIT On: 18-Jun-2013 Intent ([id number])By: Amy Gonzalez CNP Comments: IV initiated in: R ACwith 22 gaugenumber of attempts: x1 attempt without difficultyTolerated well: MAMTA Elizabeth Eprescribed prescriptions On: 16-Mar-2013 Intent ([id number])By: Marisela Mata LPN Eprescribed prescriptions On: 25-Jan-2013 Intent ([id number])By: Marisela Mata LPN Eprescribed prescriptions On: 15-Jan-2013 Intent ([id number])By: Marisela Mata LPN Toradol Injection, 30 mg On: 24-Nov-2012 Intent ([id number])By: Hillary Russell MD Comments: Lot #[id number]-right hipDose- 30mlgiven by: Didier Farrar LPN Eprescribed prescriptions On: 24-Nov-2012 Intent ([id number])By: Marisela Mata LPN EKG ([id number])By: Isac OLEARY, On: 09-Sep-2012 Intent Saida Comments: sinus rhythm no changes compared to 03-24 Pulse Oximetry ([id number])By: Isac On: 09-Sep-2012 Intent Saida OLEARY Comments: 99% on room air MRA - brainBy: Hillary Russell MD On: 14-Aug-2012 Intent MRI - Brain (IV Contrast On: 14-Aug-2012 Intent Needed)By: Hillary Russell MD Eprescribed prescriptions On: 14-Aug-2012 Intent ([id number])By: Liberty Choi LPN TDAP VACCINE >7 IM ([id number])By: On: 25-Jun-2012 Intent Hillary Russell MD Comments: Lot #[id number]/8/14Site-left deltoidgiven by: Didier Farrar LPN MAMMOGRAM, SCREENING, BOTH BREASTS On: 25-Jun-2012 Intent ([id number])By: Hillary Russell MD EKG ([id number])By: Hillary Russell MD On: 24-Mar-2012 Intent Comments: see scanned document of test done to see results reviewed today with patient Pulse Oximetry ([id number])By: Lupillo, On: 24-Mar-[address] - Abdomen & Pelvis Stone On: 13-Mar-2012 Intent ProtocolBy: Amy Gonzalez CNP Nerve ConductionBy: Isac OLEARY, On: 06-Jan-2012 Intent Saida EMGBy: Saida Chau LPN On: 06-Jan-2012 Intent Solu -Medrol Injection, 125 mg On: 03-Jan-2012 Intent ([id number])By: Saida Chau LPN Comments: Lot #[id number]-right hipDose- 125 mggiven by: Didier Farrar LPN Radiology - ChestBy: María MARTÍNEZ, On: 20-Dec-2010 Intent Hillary Peng Pulse Oximetry ([id number])By: Lupillo On: 20-Dec-2010 Intent JAMAR EKG ([id number])By: JAMAR Wesley On: 20-Dec-2010 Intent UGI (With [...] Hypokalemia : DISCONTINUED - METABOLIC PANEL, BASIC ([id number]) Indication: Hypokalemia BMI 25.0-25.9,adult : How to [...] be. Was recently i n sun at [employer]. Has underlying autoimmune followed by Dr. Newsome [...] ([phone]), WWV V73.21 [facility] Payers [facility] [place] [employer]; a guarantor
--- OUTSIDE RECORDS SUMMARY | 2018-12-12 19:05 | XMS RPT_ITS | Continuity of Care Document ---
:1970 Author Organization [facility] Address [address] [facility] [address] [place] [address] Phone Care Team Providers Name Role Phone Rosalinda Garrett DO Unavailable Tanphaichitr - Childers, Neville Unavailable Jhoan uBrks MD Unavailable Nadir Bangura DO Unavailable Juancarlos [...] and myoadenylate de aminase at [facility], mitochondrial screening neg, [facility] rhabo/myopathy neg Status: Active Rheumatoid arthritis (M06.9, [...] Quantity: 90 {Tablet} Refills: 3 Ordered:21-Jan-2011 Long BAG PRESSER, Marisela L Start : 21-Jan-2011 Active Cardizem [...] 0 days Quantity: 12 {Tablet} Refills: 0 Ordered:27-May-2018 Lisa CONDE Jolly Start : 27-May-2018 Active Maxalt 10 MG Oral Tablet uad Tablet one po at onset of migraine then may repeat in 2 hours as need. no more than 2 in 24 hours. for 0 days Quantity: 12 {Tablet} Refills: 0 Ordered:27-May-2018 Lisa CONDE Jolly Start : 27-May-2018 Active Omeprazole 40 MG Oral Capsule Delayed [...] for 2days then qd for 4days for 0 days Quantity: 8 {Tablet} Refills: 0 Ordered:31-Jul-2018 Lisa CONDE Jolly Start : 31-Jul-2018 Active PROzac 20 MG Oral Capsule 3 [...] DO, DO, Kathleen Start : 10-Jun-2018 Active Valtrex 1 GM Oral Tablet 1 Tablet bid 10 days for 10 days Quantity: 20 {Tablet} Refills: 1 Ordered:22-Sep-2018 Lisa CONDE Jolly Start : 22-Sep-2018 Active Comments:ok to dispense generic Ventolin HFA 108 (90 Base) MCG/ACT Inhalation [...] 2 Views Result: Comments: See Note; NOTES: [facility] Imaging Services [address] [place] [address] Pelvis 1 or 2 Views MR#: [id number] Acct: [id number] Name: KRISTIN FAUST Edmund Rep #: [id number] D OB: 1970 F 47 From: Slava Lake MD PCP: Rosalinda Garrett DO Status: REG CLI Study: Pelvis 1 or 2 Views Date of Exam: 09/17/18 Exam# [id number] Ordering Dr: Re López MD STUDY: X-RAY [...] CC: Rosalinda Garrett DO; Re López MD Tow Mate: Signed 16-Oct-2017 Bilat Brst Sky Stand Alone Result: Comments: See Note; NOTES: [facility] Imaging Services [address] [place] [address] Bilat Brst Sky Stand Alone MR#: [id number] Acct: [id number] Name: KRISTIN FAUST Rep #: [id number] : 1970 F 46 From: Oni Leone MD PCP: Rosalinda Garrett DO Status: REG CLI Study: Bilat Brst Sky Stand Alone Date of Exam: 10/16/17 Exam# [id number] Ordering Dr: Rosalinda Garrett MAMMOGRAPHY - BILATERAL [...] delay biopsy of a clinically suspicious abnormality. [id number] Electronically Signed: Oni Leone MD at 14:42 EST Tel [phone], Service support [phone], CC: Rosalinda Garrett DO Tow Mate: Signed 16-Oct-2017 Breast Limited Unilateral Result: Comments: See Note; NOTES: [facility] Imaging Services [address] [place] [address] Breast Limited Unilateral MR#: [id number] Acct: [id number] Name: KRISTIN FAUST Rep #: [id number] : 1970 F 46 From: Oni Leone MD PCP: Rosalinda Garrett DO Status: REG CLI Study: Breast Limited Unilateral Date of Exam: 10/16/17 Exam# [id number] Ordering Dr: Rosalinda Garrett DO STUDY: ULTRASOUND [...] Oni Leone MD at 15:23 EST Tel [phone], Service support , CC: Rosalinda Garrett DO Tow Mate: Signed 16-Oct-2017 DIAG MAMM W/CAD, BILAT Result: Comments: See Note; NOTES: [facility] Imaging Services [address] [place] [address] DIAG MAMM W/CAD, BILAT MR#: [id number] Acct: [id number] Name: KRISTIN FAUST Rep #: [id number] : 1970 F 46 From: Oni Leone MD PCP: Rosalinda Garrett DO Status: REG CLI Study: DIAG MAMM W/CAD, BILAT Date of Exam: 10/16/17 Exam# [id number] Ordering Dr: Rosalinda Garrett DO MAMMOG TIFFANIE [...] delay biopsy of a clinically suspicious abnormality. [id number] Electronically Signed: Oni Leone MD at 14:42 EST Tel [phone], Service support , Fa x [phone] CC: Rosalinda Garrett DO Tow Mate: Signed 04-Apr-2017 Brain W/WO Contrast Result: Comments: See Note; NOTES: [facility] Imaging Services [address] [place] [address] Verdana 4d Brain W/WO Contrast MR#: [id number] Acct: [id number] Name: FAUSTKRISTIN Edmund Rep #: [id number] : 1970 F 46 From: Nir Zuleta MD PCP: Rosalinda Garrett DO Status: REG CLI Study: Brain W/WO Contrast Date of Exam: 04/04/17 Exam# [id number] Ordering Dr: Rosalinda Garrett DO STUDY: MRI [...] Service support , CC: Rosalinda Garrett DO Tow Mate: Signed 04-Apr-2017 MRA Head ONLY without Contrast Result: Comments: See Note; NOTES: [facility] Imaging Services [address] [place] [address] Verdana 4d MRA Head ONLY without Contrast MR#: [id number] Acct: [id number] Name: FISH FAUST Rep #: [id number] : 1970 F 46 From: Kian Pedroza MD PCP: Rosalinda Garrett DO Status: REG CLI Study: MRA Head ONLY without Contrast Date of Exam: 04/04/17 Exam# [id number] Ordering Dr: Rosalinda Herron DO STUDY: MRA OF THE HEAD WITHOUT CONTRAST REASON FOR EXAM: Female, 46 years old. Memory loss, anisocoria, headaches. TECHNIQUE: 3-D omdz-jz-ypkanc (TOF) imaging was performed with M IPs. [...] There is no demonstrated aneurysm of the rampart of Melendez. There is no major vessel occlusion or hemodynamically significant stenosis. There is no demonstrated abnormality of the visualized brain. MRI/MRA Head ON LY without Contrast IMPRESSION: Normal MRA of the head, without any interval change from prior study. Electronically Signed: Marcos Pedroza MD at 1:46 EDT Tel , Service suppo rt , CC: Rosalinda Garrett DO Tow Mate: Signed 20-Apr-2016 Emergency Department Summary Result: Comments: See Note; NOTES: [facility] Medical Records Department [address] [place] [address] Emergency Department Summary MR#: [id number] Acct: [id number] Name: KRISTIN FAUST Rep #: [id number] : 1970 45 From: Markus Palma MD PCP: Rosalinda Garrett DO Status: DEP ER DATE OF SERVICE: 04/20/2016 HISTORY OF PRESENT ILLNESS: A 45-year-old woman who prese nts with myalgias that started yesterday with dark colored urine. 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 She has history of autoimmune disorder, renal [...] C: Rosalinda Garrett DO T: NTS JOB: [id number] 04/20/162341 <Electronically signed by Markus Palma MD> Date Markus Palma MD Cosigner S ignature (If Indicated): Date CC: Rosalinda Garrett DO Date Dictated: 04/20/161741 Date Transcribed: 04/20/161741 Tow Mate: Signed 20-Apr-2016 Discharge Instruction Result: Comments: See Note; NOTES: [facility] Medical Records Department [address] [place] [address] Discharge Instruction 04/20/161741 MR#: [id number] Acct: [id number] Name: KRISTIN FAUST Rep #: [id number] : 1970 45 From: Markus Palma MD PCP: Rosalinda Garrett DO Status: REG ER ED Disposition - Plan for ED Patient: Disposition: Home or Assisted Living [facility] Complaint: General Illness Instructions: ED Myalgias, ED Renal Insufficiency Referrals: Rosalinda Garrett DO [Primary Care Provider] - As Needed What to do if you have Problems For any incr eased pain, shortness of breath, bleeding, nausea or vomiting, chest pain, or any unexpected problems, contact your doctor. Call [facility] ([phone]) or report to the closest Emergency Room . Call 911 if necessary. 04/20/161743 <Electronically signed by Markus Palma MD> Date Markus Palma MD Cosigner Signature (If Ind icated): Date CC: Rosalinda Garrett 23-Feb-2016 12 Lead Electrocardiogram Result: Comments: See Note; NOTES: [facility] Cardiovascular Services [address] [place] [address] 12 Lead EKG 02/22/16103 MR#: [id number] Acct: [id number] Name: KRISTIN FAUST Rep #: [id number] : 1970 45 From: Davi Lutz MD [...] MD Date Dictated: 02/22/16103 Date Transcribed: 02/22/16103 Tow Mate: Signed 23-Feb-2016 EKG (75673) Result: [MEASUREMENTS ANALYSIS] Date of Test: 02/23/2016 13:44:59; Heart Rate: 72; ID Interval: 150; QRS: 88; QT Interval: 412; Corrected QT Interval (QTc): 433; P Wave [place]: 57; QRS Wave [place]: 55; T Wave [place]: 41; Blood Pressure: 130/86 [ECG DIAGNOSTIC STATEMENTS] Date of Test: 02/23/2016 13:44:59; Summary: Sinus Rhythm WITHIN NORMAL LIMITS 22-Feb-2016 Emergency Department Summary Result: Comments: See Note; NOTES: [facility] Medical Records Department [address] [place] [address] Emergency Department Summary MR#: [id number] Acct: [id number] Name: KRISTIN FAUST Rep #: [id number] : 1970 45 From: Garcia Asencio MD [...] of 72 with no acute signs of SC, ischemia or dysrhythmia. White count of 11, [...] MD C C: Hillary Russell MD T: [facility] JOB: [id number] 02/22/16 0535 <Electronically signed by Garcia Asencio MD> Date Garcia Asencio MD Cosigner Signature (If Indicated): Date CC: Hillary Russell MD Date Dictated: 02/22/16418 Date T ranscribed: 02/22/16418 Tow Mate: Signed 22-Feb-2016 Discharge Instruction Result: Comments: See Note; NOTES: [facility] Medical Records Department [address] [place] [address] Discharge Instruction 02/22/16 0148 MR#: [id number] Acct: [id number] Name: KRISTIN FAUST Edmund Rep #: [id number] : 1970 45 From: Garcia Asencio MD [...] unexpected problems, contact your doct or. Call [facility] ([phone]) or report to the closest Emergency Room. Call 911 if necessary. 02/22/16 0529 <Electronically signed by Garcia Asencio MD> Date __ Garcia Asencio MD Cosigner Signature (If Indicated): Date CC: Hillary Russell MD 22-Feb-2016 Chest 1 View (Portable) Result: Comments: See Note; NOTES: [facility] Imaging Services [address] [place] [address] Verdana 4d Chest 1 View (Portable) MR#: [id number] Acct: [id number] Name: KRISTIN JACKSON Rep #: [id number] : 1970 F 45 From: Winston Espinosa PCP: Hillary Russell MD Status: REG ER Study: Chest 1 View (Portable) Date of Exam: 02/22/16 Exam# [id number] Ordering Dr: Garcia Asencio MD STUDY: X-RAY [...] at 1:42 EDT , Servic e support [phone], RAD/Chest 1 View (Portable) IMPRESSION: Normal x-ray examination of the chest. Electronically Signed: Winston Espinosa MD at 1:42 EDT , Service support [phone], CC: Hillary Russell MD; Garcia Asencio MD Tow Mate: Signed 08-Nov-2015 Brain W/WO Contrast Result: Comments: See Note; NOTES: [facility] Imaging Services [address] [place] [address] Verdana 4d Brain W/WO Contrast MR#: [id number] Acct: [id number] Name: VIBHA FAUST Rep #: [id number] : 1970 F 44 From: Daylin Quintana MD PCP: Hillray Russell MD Status: REG CLI Study: Brain W/WO Contrast Date of Exam: 11/08/15 Exam# [id number] Ordering Dr: Aamir Russell MD STUDY: MRI [...] Service support , CC: Hillary Russell MD Tow Mate: Signed 08-Sep-2015 Kidney and Bladder Result: Comments: See Note; NOTES: [facility] Imaging Services [address] [place] [address] Verdana 4d Kidney and Bladder MR#: [id number] Acct: [id number] Name: LISA FAUST Rep #: [id number] : 1970 F 44 From: Bia Cain MD PCP: Hillary Russell MD Status: REG CLI Study: Kidney and Bladder Date of Exam: 09/08/15 Exam# [id number] Ordering Dr: Amy Gonzalez STUDY: RENAL ULTRASOUND [...] 17 :16 EDT Tel , Service support [phone], CC: Amy Gonzalez; Hillary Russell MD Tow Mate: Signed 27-Jun-2014 Ligia Vasquez [employer] Result: Comments: See Note; NOTES: [facility] Imaging Services [address] [place] [address] Breast Imaging Report MR#: [id number] Acct: [id number] Name: KRISTIN YOUNG Rep #: [id number] : 1970 F 43 From: Oni Leone MD PCP: Hillary Russell MD Status: REG CLI Exam# [id number] Ordering Dr: Hillary Russell MD MAMMOGRAPHY - [...] Oni moreira MD at 11:04 EDT Tel [phone], Service support [phone], CC: Hillary Russell MD Tow Mate: Signed 01-Feb-2014 Chest PA and Lateral Result: Comments: See Note; NOTES: [facility] Imaging Services [address] [place] [address] Radiology Report MR#: [id number] Acct: [id number] Name: KRISTIN YOUNG Rep #: [id number] : 1970 F 43 From: Winston Espinosa PCP: Hillary Russell MD Status: REG CLI Study: Chest PA and Lateral Date of Exam: 02/01/14 Exam# [id number] Ordering Dr: Hillary Russell MD STUDY: X-RA [...] M.D. at 7:18 EDT , Service support [phone], Fax CC: Hillary Russell MD Tow Mate: Signed 17-Dec-2013 Abdomen Complete Result: Comments: See Note; NOTES: [facility] Imaging Services [address] [place] [address] Ultrasound Report MR#: [id number] Acct: [id number] Name: KRISTIN YOUNG Rep #: [id number] : 1970 F 43 From: Oni Leone MD PCP: Status: REG CLI Study: Abdomen Complete Date of Exam: 12/17/13 Exam# [id number] Ordering Dr: Amy Gonzalez STUDY: ABDOMINAL ULTRASOUND [...] M.D. at 14:04 EST , Service support [phone], CC: Amy Gonzalez Tow Mate: Signed 17-Dec-2013 Pelvic (Non ) Result: Comments: See Note; NOTES: [facility] Imaging Services [address] [place] [address] Ultrasound Report MR#: [id number] Acct: [id number] Name: KRISTIN YOUNG Rep #: [id number] : 1970 F 43 From: Oni Leone MD PCP: Status: REG CLI Study: Pelvic (Non ) Date of Exam: 12/17/13 Exam# [id number] Ordering Dr: Amy Gonzalez STUDY: ULTRASOUND OF [...] at 14:06 EST Tel , Service support [phone], CC: Amy Gonzalez Tow Mate: Signed Family History Unknown Family Member Name [...] kg/m2 Body Surface Area Calculated 1.62 m2 : Temperature 98.2 f Comments: Method: Oral Pulse [...] 1.65 m2 Results Date Description Value Details :19 Anti-Centromere B Ab Comments: [facility] (refer to [...] ANTI-KARY <0.2 {AI} (Normal) Range: 0.0-0.9 :19 Qeas-Cwopuyupvua-88 AB Comments: [facility] (refer to report for specific site)refer to report for address and phone number ANTISCLER <0.2 {AI} (Normal) Range: 0.0-0.9 :19 Antiextractable Nug Ag Comments: [facility] (refer to report for specific site)refer to report for address and phone number BRICENO Ab <0.2 {AI} (Normal) Range: 0.0-0.9 PLANNING DIRECTOR Ab <0.2 {AI} (Normal) Range: 0.0-0.9 :19 ANTINUCLEAR ANTIBODIES DIRECT Comments: [facility] (refer to report for specific site)refer to report for address and phone number MONIQUE-DIRECT Negative (Normal) Comments: Performed at: CB - [facility] [id number] Director: West Spivey PhD, Phone: [phone] :19 CBC W/Diff, Automated Comments: [facility] [address] [place], [place], [id number] Absolute Lymph 1.12 {X10_3/ul} (Normal) Range: 0.83-4.51 [...] 4.2-5.4 WBC 6.3 K/mm3 (Normal) Range: 4.4-11.0 4-Yix-513496:19 CCP IgG Antibodies Comments: [facility] (refer to report for specific site)refer to report for address and phone number ANTI-CCP [id number] 6 {units} (Normal) Range: 0-19 Comments: Negative <20 Weak positive 20 - 39 Moderate positive 40 - 59 Strong positive >59 4-Vqy-040922:19 Complement C3 Comments: [facility] (refer to report for specific site)refer to report for address and phone number COMP C3 128 mg/dL (Normal) Range: 82-167 7-Lin-853218:19 Complement C4 Comments: [facility] (refer to report for specific site)refer to report for address and phone number COMP C4 28 mg/dL (Normal) Range: 14-44 6-Faj-281892:19 Comprehensive Metabolic Profil Comments: [facility] [address] [place], [address] GAP 8 (Normal) Range: 5-15 CO2 26.0 [...] Comments: Please note revised GLUCOSE reference range oxhlgqpaw59/02/2018. 7-Ynj-255420:19 CRP Comments: [facility] [address] [place], [place], [id number] C-REACTIVE PROT < 2.90 mg/L (Normal) Range: 0.0-3.0 Comments: C-Reactive Protein (CRP) provides useful information for thediagnosis, therapy and monitoring of inflammatory processesand associated diseases. For the evaluation of Relative Riskfor Cardiovascular Dise ase, a High Sensitivity CRP (HSCRP)should be ordered. :19 Erythrocyte Sed Rate Comments: [facility] [address] [place], [id number] SED RATE 2 mm/h (Normal) Range: 0-20 8-Uqp-262297:19 Hep B Surface Antibodies Comments: [facility] (refer to report for specific site)refer to report for address and phone number Hep B Christopher AB Reactive (Normal) Comments: Non Reactive: Inconsistent with immunity, less than 10 mIU/mL Reactive: Consistent with immunity, greater than 9.9 mIU/mL 3-Tsp-755637:19 Hepatitis B Surface Ag Comments: [facility] (refer to report for specific site)refer to report for address and phone number HB SURF AG Negative (Normal) Comments: Performed at: - [facility] [address] [id number] Director: West Spivey PhD, Phone: [phone] at: - [facility] [id number] Director: Juan Clifton PhD, Phone: [phone] at: - [facility] [id number] Director: Iesha Ambrocio MD, Phone: [phone] 0-Lyl-291624:19 Hepatitis C Antibodies Comments: [facility] (refer to report for specific site)refer to report for address and phone number HEP C AB <0.1 {s/co_ratio} Range: 0.0-0.9 (Normal) Comments: Negative: < 0.8 Indeterminate: 0.8 - 0.9 Positive: > 0.9 The CDC recommends that a positive HCV antibody result be followed up with a HCV Nucleic Acid Amplification test (640384). : HLA B27 Negative (Normal) Comments: [facility] (refer to report for specific site)refer to report for address and phone number 19 Comments: HLA-B*27 WdjctarcM29 allele interpretation for all loci based on IMGT/HLAdatabase version 3.31.0This test was developed and its performance characteristicsdetermined by [facility]. It has not been cleared or approvedby the Food and Drug Administration.[facility] CLIA ID Number [id number] test was performed using PCR (Polymerase ChainReaction)/SSOP (Sequence Specific Oligonucleotide Probes)technique. S BT (Sequence Based Typing) and/or SSP(Sequence Specific Primers) may be used as supplementalmethods when necessary. Please contact [facility] CustomerService at if you have any questions. Director of [facility] Dr Juan Clifton, PhD :19 Protein+Creatinine Ratio,Urine Comments: [facility] [address] [facility], [address] PROT:CRE RATIO 234 {mg/g_CRE} (Abnormal) Range: 0-200 PROTEIN,UR.RAN. 11.5 mg/dL (Normal) UR CREAT 49.10 mg/dL (Normal) :19 Rheumatoid Factor Comments: [facility] [address] [facility] [address] [place], [address] RHEUMATOID FAC < 10.0 {IU/mL} (Normal) :19 Sjogren's Antibodies A/B Comments: [facility] (refer to report for specific site)refer to report for address and phone number Anti-SS-B < 0.2 {AI} (Normal) Range: 0.0-0.9 Anti-SS-A < 0.2 {AI} (Normal) Range: 0.0-0.9 :19 Urinalysis, Routine (Dipstick) Comments: How was Urine Obtained? [facility] [address] [facility] [address] [place], [address] LEUK ESTERASE Negative /ul (Normal) OCCULT BLOOD-UR [...] Qn, 24-Hr Comments: PATIENT NOT FASTINGPERFORMED BY: AudienceRate LtdSaint Francis Medical CenterMwpjcl5209 [facility] [id number] Information: START 07/14/18@705AM Urine Prot,24hr calculated 71 {mg/24_hr} (Normal) Range: 30-150 Protein,Total,Urine 4.2 mg/dL (Normal) :38 Microscopic Examination Comments: PATIENT WAS FASTINGPERFORMED BY: [employer] [id number] BY: QuboleSaint Francis Medical CenterSuiahw4935 [facility] [id number] Bacteria Few (Normal) Epithelial Cells (non renal) 0-10 {/hpf} (Normal) Range: 0 - 10 RBC 0-2 {/hpf} (Normal) Range: 0 - 2 WBC 0-5 {/hpf} (Normal) Range: 0 - 5 :38 T4, FREE (THYROXINE) Comments: PATIENT WAS FASTINGPERFORMED BY: [employer] [address] [id number] BY: Ondore Gppovk3553 [facility] [id number] (38472) T4,Free(Direct) 1.45 ng/dL (Normal) Range: 0.82-1.77 :38 T3, FREE (TRIDOTHYRONINE) Comments: PATIENT WAS FASTINGPERFORMED BY: [employer] [address] [id number] BY: QuboleSaint Francis Medical CenterUcuciv8378 [facility] [id number] (13515) Triiodothyronine (T3), Free 2.6 pg/mL (Normal) Range: 2.0-4.4 :38 TSH (72391) Comments: PATIENT WAS FASTINGPERFORMED BY: [employer]ub[employer] [id number] BY: QuboleLaura Ville 9511270 [facility] [id number] TSH 3.910 {uIU/mL} (Normal) Range: 0.450-4.500 :38 URINALYSIS, W/ MICRO Comments: PATIENT WAS FASTINGPERFORMED BY: [employer]sk[address] [id number] BY: Qubole Zziyus0025 [facility] [id number] (39298) Microscopic Examination See below: (Normal) Comments: Microscopic was indicated and was performed. Microscopic Examination MICRON (Normal) Comments: Microscopic follows if indicated. Nitrite, Urine Negative (Normal) Urobilinogen,Semi-Qn 0.2 mg/dL (Normal) Range: 0.2-1.0 Bilirubin Negative (Normal) Occult Blood Negative (Normal) Ketones Negative (Normal) Glucose Negative (Normal) Protein Negative (Normal) WBC Esterase Negative (Normal) Appearance Clear (Normal) Urine-Color Yellow (Normal) pH 7.0 (Normal) Range: 5.0-7.5 Specific Gaston 1.011 (Normal) Range: 1.005-1.030 :38 MICROALBUMIN: CREATININE Comments: PATIENT WAS FASTINGPERFORMED BY: [employer] [id number] BY: web2media.skChristine Ville 5117370 [facility] [id number] RATIO (71505) AND (69817) Alb/Creat Ratio 11.9 {mg/g_creat} (Normal) Range: 0.0-30.0 Albumin, Urine 7.4 ug/mL (Normal) Creatinine, Urine 62.1 mg/dL (Normal) 39-Khj-36860:38 METABOLIC PANEL, Comments: PATIENT WAS FASTINGPERFORMED BY: Reviewspotterton1447 [facility] [id number] BY: LabZupCatSaint Francis Medical CenterIezwge9462 [facility] [id number] COMPREHENSIVE (46145) ALT (SGPT) 14 [iU]/L (Normal) Range: 0-32 [...] 6-24 Glucose 83 mg/dL (Normal) Range: 65-99 79-Kbl-17892:38 LIPOPROTEIN, BLD, BY NMR Comments: PATIENT WAS FASTINGPERFORMED BY: [employer] [id number] BY: QuboleSaint Francis Medical CenterLdznbt5947 [facility] [id number] (36033) LP-IR Score <25 (Normal) Comments: INSULIN RESISTANCE MARKER <--Insulin Sensitive Insulin Resistant--> Percentile in Reference PopulationInsulin Resistance ScoreLP-IR Score Low 25th 50th 75th High <27 27 45 63 >63LP-IR Score is inaccurate if patient is non-fasting. .The LP-IR score is a laboratory developed i [facility] that has beenassociated with insulin resistance and [...] were developed and their performance characteristicsdetermined by [employer]. These assays have not been cleared by [...] 1600 - 2000 Very High > 2000 77-Gpx-46908:38 CBC W/AUTO DIFF WBC Comments: PATIENT WAS FASTINGPERFORMED BY: BN [facility] Ctfozigjqf5168 [facility] [id number] BY: CB [facility] Slvlkr2376 [facility] [id number] (90483) Immature Grans (Abs) 0.0 {x10E3/uL} (Normal) Range: [...] 3.77-5.28 WBC 8.2 {x10E3/uL} (Normal) Range: 3.4-10.8 58-Zzb-398731:56 URINE EDWARD CULTURE-SHANAE COL Comments: PATIENT NOT FASTINGPERFORMED BY: web2media.skGarden City Hospital6370 [facility] [id number] Information: SRC:UC COUNT (58141) Result 1 MUG (Normal) Comments: Mixed urogenital flora1,000 Colonies/mL Urine Culture,Comprehensive Final report (Normal) 92-Gjz-719737:11 Urinalysis, Office (07707) UA - LEUKOCYTE ESTERASE Negative (Normal) UA - NITRITE Negative (Normal) URINE UROBILINGN SHANAE TIMED Normal mg/dL (Normal) UA - PROTEIN Negative mg/dL (Normal) UA - PH 6 (Abnormal) UA - BLOOD Hemolyzed Trace (Normal) UA - SPECIFIC GRAVITY 1.030 (Abnormal) UA - KETONES Negative mg/dL (Normal) UA - BILIRUBIN Negative (Normal) UA - GLUCOSE Negative (Normal) 67-Qwo-80054:55 Albumin, 24-Hr Urine Comments: PATIENT NOT FASTINGPERFORMED BY: [employer] Ujbkak2345 [facility] [id number] Albumin,Urine mg/day 34.8 {mg/day} (Abnormal) Albumin, Urine 34.8 ug/mL (Normal) 73-Fwf-185377:56 Protein Electro, Random Urine Comments: PATIENT WAS FASTINGPERFORMED BY: QuboleSaint Francis Medical CenterWyjwfe0592 [facility] [id number] Please note: SPRCS (Normal) Comments: Protein electrophoresis scan will follow via computer, mail, orcourier delivery. M-Jas, % Not Observed % (Normal) Gamma Globulin, U 7.5 % (Normal) Beta Globulin, U 15.8 % (Normal) Ijfnt-9-Ileaofhk, U 4.0 % (Normal) Iyfcc-6-Tmwgvcqd, U 2.8 % (Normal) Albumin, U 69.9 % (Normal) Protein,Total,Urine 7.5 mg/dL (Normal) :55 Total Protein,24 Hour Comments: PATIENT NOT FASTINGPERFORMED BY: web2media.skG[facility] Hospital6370 [facility] [id number] Information: START 12/11/17@651AM Urine (81890) Prot,24hr calculated 119 {mg/24_hr} (Normal) Range: 30-150 Protein,Total,Urine 11.9 mg/dL (Normal) :56 LIPID PANEL (95307) Comments: PATIENT WAS FASTINGPERFORMED BY: [facility]6370 [facility] [id number] LDL/HDL Ratio 1.5 {ratio_units} (Normal) Range: 0.0-3.2 Comments: LDL/HDL Ratio Men Women 1/2 Avg.Risk 1.0 1.5 Av g.Risk 3.6 3.2 2X Avg.Risk 6.2 5.0 3X Avg.Risk 8.0 6.1 LDL Cholesterol Calc 105 mg/dL (Abnormal) Range: 0-99 VLDL Cholesterol Pete 17 mg/dL (Normal) Range: 5-40 HDL Cholesterol 69 mg/dL (Normal) Triglycerides 86 mg/dL (Normal) Range: 0-149 Cholesterol, Total 191 mg/dL (Normal) Range: 100-199 71-Vmv-064828:56 MICROALBUMIN: CREATININE RATIO Comments: PATIENT WAS FASTINGPERFORMED BY: [facility]6370 [facility] [id number] (05207) AND (86692) Microalb/Creat Ratio 87.3 {mg/g_creat} (Abnormal) Range: 0.0-30.0 Microalbumin, Urine 41.4 ug/mL (Normal) Creatinine, Urine 47.4 mg/dL (Normal) :56 METABOLIC PANEL, COMPREHENSIVE Comments: PATIENT WAS FASTINGPERFORMED BY: [facility]6370 [facility] [id number] (87150) ALT (SGPT) 15 [iU]/L (Normal) Range: 0-32 [...] Glucose, Serum 84 mg/dL (Normal) Range: 65-99 84-Uvj-615905:56 CBC W/AUTO DIFF WBC (13389) Comments: PATIENT WAS FASTINGPERFORMED BY: [facility] Kbskwa1210 [facility] [id number] Immature Grans (Abs) 0.0 {x10E3/uL} (Normal) Range: [...] Protein Electrophoresis Comments: PATIENT WAS FASTINGPERFORMED BY: QuboleAlbuquerque Indian Health CenterIskpdk6937 [facility] [id number] ([facility]) (39373) Please note: SPRCS (Normal) Comments: Protein electrophoresis scan will follow via computer, mail, orcourier delivery. A/G Ratio 1.3 (Normal) Range: 0.7-1.7 Globulin, Total 3.0 g/dL (Normal) Range: 2.2-3.9 M-Jas Not Observed g/dL (Normal) Gamma Globulin 1.0 g/dL (Normal) Range: 0.4-1.8 Beta Globulin 1.1 g/dL (Normal) Range: 0.7-1.3 Ejsmq-4-Etplbulm 0.7 g/dL (Normal) Range: 0.4-1.0 Tsogs-3-Ljxyvtzd 0.2 g/dL (Normal) Range: 0.0-0.4 Albumin 3.9 g/dL (Normal) Range: 2.9-4.4 :56 MAGNESIUM (77475) Comments: PATIENT WAS FASTINGPERFORMED BY: QuboleSaint Francis Medical CenterVybqpf0708 [facility] [id number] Magnesium, Serum 2.1 mg/dL (Normal) Range: 1.6-2.3 :56 PHOSPHORUS (19930) Comments: PATIENT WAS FASTINGPERFORMED BY: Qubole Suqaxc2775 [facility] [id number] Phosphorus, Serum 3.1 mg/dL (Normal) Range: 2.5-4.5 :56 CALCIFEDIOL (53775) Comments: PATIENT WAS FASTINGPERFORMED BY: LabZupCat Ahrnpf0216 Reina [facility] [place] [id number] Vitamin D, 25-Hydroxy 39.0 ng/mL (Normal) Range: 30.0-100.0 Comments: Vitamin D deficiency has been defined by the [place] [facility] and an Endocrine Society practice guideline as alevel of serum 25-OH vitamin D less than 20 ng/mL (1,2).The Endocrine Society went on to further define vitamin Dinsufficiency as a level between 21 and 29 ng/mL (2).1. IOM ([place] of Medicine). 2010. Dietary reference intakes for calcium and D. [place]: The National Academies Press.2. Chriss MF, Ez MUSE, Kilo MCCORMICK, et al. Evaluation, treatment, and prevention of vitamin D deficiency: an Endocrine Society clinical practice guideline. JCEM. 2010; 96(7):1911-30. :56 PARATHORMONE (40440) Comments: PATIENT WAS FASTINGPERFORMED BY: [facility] Efxikr2499 Reina [facility] [place] [id number] PTH, Intact 30 pg/mL (Normal) Range: 15-65 :43 METABOLIC PANEL, COMPREHENSIVE Comments: PATIENT NOT FASTINGPERFORMED BY: Qubole Npmhft1435 Re[facility] [place] [id number] (82559) ALT (SGPT) 10 [iU]/L (Normal) Range: 0-32 [...] Glucose, Serum 83 mg/dL (Normal) Range: 65-99 74-Usp-695362:40 TSH (76288) Comments: week of Aug 04; PATIENT NOT FASTINGPERFORMED BY: Dashi IntelligenceECU Health Bert[facility] Hospital [id number] TSH 4.000 {uIU/mL} (Normal) Range: 0.450-4.500 5-Gzi-379273:10 URINE EDWARD CULTURE-IDENTIFICATN Comments: PATIENT NOT FASTINGPERFORMED BY: Dashi IntelligenceECU [facility] Hospital [id number] (78152) Result 1 MUG (Normal) Comments: Mixed urogenital flora10,000-25,000 colony forming units per mL Urine Final report (Normal) Culture,Comprehensive 5-Fst-065475:10 URINALYSIS (73643) Comments: PATIENT NOT FASTINGPERFORMED BY: [employer] bioServices70 [facility]-ViewEC[facility] [id number] Microscopic Examination MICNIP (Normal) Comments: Microscopic not indicated and not performed. Nitrite, Urine Negative (Normal) Urobilinogen,Semi-Qn 0.2 mg/dL (Normal) Range: 0.2-1.0 Bilirubin Negative (Normal) Occult Blood Negative (Normal) Ketones Negative (Normal) Glucose Negative (Normal) Protein Negative (Normal) WBC Esterase Negative (Normal) Appearance Clear (Normal) Urine-Color Yellow (Normal) pH 7.0 (Normal) Range: 5.0-7.5 Specific Gaston 1.007 (Normal) Range: 1.005-1.030 0-Kmg-287647:10 MICROALBUMIN: CREATININE RATIO Comments: PATIENT NOT FASTINGPERFORMED BY: QuboleSaint Francis Medical CenterRujdnx6003 [facility] [id number] (91090) AND (51336) Microalb/Creat Ratio 77.2 {mg/g_creat} (Abnormal) Range: 0.0-30.0 Microalbumin, Urine 26.4 ug/mL (Normal) Creatinine, Urine 34.2 mg/dL (Normal) 3-Opi-285545:10 Metabolic Panel, Comments: PATIENT NOT FASTINGPERFORMED BY: LabZupCat Yykutt7880 [facility] [id number] Information: SRC:[facility] (08435) ALT (SGPT) 13 [iU]/L (Normal) Range: 0-32 [...] Glucose, Serum 68 mg/dL (Normal) Range: 65-99 :10 T4, FREE (THYROXINE) (01001) Comments: PATIENT NOT FASTINGPERFORMED BY: [facility]6370 [facility] [id number] T4,Free(Direct) 1.03 ng/dL (Normal) Range: 0.82-1.77 :10 T3, FREE (TRIDOTHYRONINE) (67424) Comments: PATIENT NOT FASTINGPERFORMED BY: [facility]6370 [facility] [id number] Triiodothyronine,Free,Serum 2.8 pg/mL (Normal) Range: 2.0-4.4 :10 TSH (42330) Comments: PATIENT NOT FASTINGPERFORMED BY: LabGarden City Hospital6370 [facility] [id number] TSH 5.160 {uIU/mL} (Abnormal) Range: 0.450-4.500 28-Mqr-201750:33 Serum Creatinine AND GFR Comments: [facility] Tgunfawhny[address] [place], [place], [id number] EST GFR - AA 61 mL/min (Normal) Comments: GFR Calc EST GFR 50 mL/min (Abnormal) Comments: Non- GFR Calc CREAT,SERUM 1.22 mg/dL (Abnormal) Range: 0.55-1.02 Comments: The validity of the calculated GFR AND GFRAA in patients over70 years has not been determined. Clinical correlation isessential. :14 CBC W/Diff, Automated Comments: [facility] Nvmkxhwemo[address] [place], [place], [id number] Absolute Lymph 1.12 {X10_3/ul} (Normal) Range: 0.83-4.51 [...] Range: 4.4-11.0 22-Mar-20178:14 Comprehensive Metabolic Profil Comments: [facility] [address] [place], [address] GAP 9 (Normal) Range: 5-15 CO2 26.0 [...] (Normal) Range: 70-110 :14 Free T3 Comments: [facility] Dezeuuxffj[address] [place], [place], [id number] FREE T3 2.2 pg/mL (Normal) Range: 2.18-3.98 22-Mar-20178:14 Lipid Profile Comments: [facility] [address] [place], [place], [id number] VLDL 23 mg/dL (Normal) Range: 5-40 LDL [...] High Risk 22-Mar-20178:14 Microalb:Creat Ratio,Random UR Comments: [facility] [address] [place], [address] MALB:CREAT 18.6 {mg/g_CRE} (Normal) MICROALBUMIN,UR 18.6 mg/L (Normal) UR CREAT 100.00 mg/dL (Normal) :14 T4 Free Direct Comments: [facility] Astbsynqxh[address] [place], [address] T4 FREE DIRECT 0.83 ng/dL (Normal) Range: 0.76-1.46 :14 Thyroid Peroxidase AB Comments: [facility] (refer to report for specific site)refer to report for address and phone number TPO AB 6419 15 {IU/mL} (Normal) Range: 0-34 Comments: Performed at: [address] [id number] Director: West pSivey PhD, Phone: [phone] 22-Mar-20178:14 Thyroid Stim Hormone (TSH) Comments: [facility] [address] [place], [address] TSH 6.38 {uIU/mL} (Abnormal) Range: 0.358-3.74 :14 Urinalysis, Complete Comments: How was Urine Obtained? CLEAN [facility] [address] [place], [address] MUCUS, URINE 0 SEEN {/hpf} (Normal) [...] (Normal) CLARITY Clear (Normal) COLOR Yellow (Normal) 24-Vxt-628232:10 Mycoplasma pneu. IgG/IgM Abs Comments: PATIENT NOT FASTINGPERFORMED BY: QuboleSaint Francis Medical CenterTevbzg0352 [facility] [id number] M pneumoniae IgM Abs <770 U/mL (Normal) [...] showing a significant increase in antibody levels. 89-Woz-92797:56 Bordetella Pertussis PCR Comments: PATIENT NOT FASTINGPERFORMED BY: Qubole[address] [id number] Information: NASAL (47717) Bordetella parapertussis DNA Negative (Normal) Comments: This test was developed and its performance characteristics determinedby [employer]. It has not been cleared or approved by theU.S. Food and Drug Administration. The FDA has determined that lino chclearance or approval is not necessary. This test is used for clinicalpurposes. It should not be regarded as investigational or research. Bordetella pertussis DNA Negative (Normal) 1-Jcz-222902:50 CPK Total, Creatine Kinase Comments: [facility] [address]oyuo[address] [place], [place], [address] CPK TOTAL 116 U/L (Normal) Range: 26-192 5-Pwd-044587:02 CBC with auto diff Comments: PATIENT NOT FASTINGPERFORMED BY: [facility]6370 [facility] [id number] Information: [id number] (69033) Immature Grans (Abs) 0.0 {x10E3/uL} (Normal) Range: [...] 3.77-5.28 WBC 7.3 {x10E3/uL} (Normal) Range: 3.4-10.8 2-Yqj-199853:46 EDWARD CULTURE-BLOOD (67100) Comments: PATIENT NOT FASTINGPERFORMED BY: LabCoSaint Francis Medical CenterEnyxwi0552 [facility] [id number] Information: SRC:BLD [id number] Result 1 NGFD (Normal) Comments: No aerobic or anaerobic growth in five days. Blood Culture, Routine Final report (Normal) 3-Tiu-978380:01 URINE EDWARD CULTURE-IDENTIFICATN Comments: PATIENT NOT FASTINGPERFORMED BY: LabCoSaint Francis Medical CenterNbdlby5768 [facility] [id number] Information: [id number] (84814) Result 1 MUG (Normal) Comments: Mixed urogenital flora2,000 Colonies/mL Urine Culture,Comprehensive Final report (Normal) 7-Sdc-864634:22 Urinalysis, Office (47721) UA - LEUKOCYTE ESTERASE Negative (Normal) UA - NITRITE Negative (Normal) URINE UROBILINGN SHANAE TIMED Normal mg/dL (Normal) UA - PROTEIN 30 mg/dL (Normal) UA - PH 7 (Normal) UA - BLOOD Non Hemolyzed Moderate (Normal) UA - SPECIFIC GRAVITY 1.030 (Abnormal) UA - KETONES Negative mg/dL (Normal) UA - BILIRUBIN Negative (Normal) UA - GLUCOSE Negative (Normal) 22-Feb-20161:05 Basic Metabolic Profile (BMP) Comments: Serial Specimen #1, #2 or #3? 1'TROP' Serial specimen #1, #2, #3, or #4: 1[facility] [address] [place], [address] GAP 5 (Normal) Range: 5-15 CO2 26.0 [...] 7-18 GLU 85 mg/dL (Normal) Range: 70-110 22-Feb-20161:05 CBC W/Diff, Automated Comments: [facility] [address] [place], [address] Absolute Lymph 1.64 {X10_3/ul} (Normal) Range: 0.83-4.51 [...] Serial specimen #1, #2, #3, or #4: 1[facility] [address] [place], [address] CKRI 0.9 % (Normal) Range: 0.0-1.4 Comments: RELATIVE INDEX >1.5% IS PRESUMPTIVELY POSITIVE CPKMB 0.8 ng/mL (Normal) Range: 0.0-5.0 Comments: CK-MB and RI Interpretation MB Relative Index Non-AMI <or= 5 NA Indeterminate > 5 <or= 4 AMI > 5 > 4 CPK TOTAL 90 U/L (Normal) Range: 26-192 22-Feb-20161:05 Troponin-I Comments: Serial Specimen #1, #2 or #3? 1'TROP' Serial specimen #1, #2, #3, or #4: 1[facility] [address] [place], [address] TROPONIN-I < 0.02 ng/mL (Normal) Comments: TROPONIN-I EXPECTED VALUES <0.05 NEGATIVE 0.06 - 0.59 AT RISK OF SC > OR = 0.60 SUGGEST SC 39-Chd-951231:00 Ferritin (25616) Comments: PATIENT NOT FASTINGPERFORMED BY: Qubole [facility] [id number] Ferritin, Serum 47 ng/mL (Normal) Range: 15-150 89-Jxn-437872:00 Sed Rate Erythrocyte (51072) Comments: PATIENT NOT FASTINGPERFORMED BY: Qubole Vjjlqz5993 [facility] [id number] Sedimentation Rate-Westergren 2 mm/h (Normal) Range: 0-32 92-Ikn-718501:00 MICROALBUMIN: CREATININE RATIO Comments: PATIENT NOT FASTINGPERFORMED BY: Qubole Duznzz9187 [facility] [id number] (20370) AND (64778) Microalb/Creat Ratio 129.6 {mg/g_creat} (Abnormal) Range: 0.0-30.0 Microalbumin, Urine 97.3 ug/mL (Abnormal) Range: 0.0-17.0 Creatinine, Urine 75.1 mg/dL (Normal) Range: 15.0-278.0 66-Ytx-364831:00 TSH (79702) Comments: PATIENT NOT FASTINGPERFORMED BY: QuboleSaint Francis Medical CenterRdnkci7100 [facility] [id number] TSH 6.780 {uIU/mL} (Abnormal) Range: 0.450-4.500 39-Nue-029001:00 METABOLIC PANEL, COMPREHENSIVE Comments: PATIENT NOT FASTINGPERFORMED BY: LabCoSaint Francis Medical CenterMqpskz5355 [facility] [id number] (39837) ALT (SGPT) 40 [iU]/L (Abnormal) Range: 0-32 [...] Glucose, Serum 78 mg/dL (Normal) Range: 65-99 39-Bmf-243375:00 CBC with auto diff Comments: PATIENT NOT FASTINGPERFORMED BY: KEVIN LabCoSaint Francis Medical CenterXuuvuj4753 [facility] [id number] Information: [id number] (03968) Immature Grans (Abs) 0.0 {x10E3/uL} (Normal) Range: [...] 3.77-5.28 WBC 7.9 {x10E3/uL} (Normal) Range: 3.4-10.8 :53 Serum Creatinine AND GFR Comments: [facility] Eqjiejexuu[address] [place], [place], [address] EST GFR - AA 62 mL/min (Normal) Comments: GFR Calc EST GFR 51 mL/min (Abnormal) Comments: Non- GFR Calc CREAT,SERUM 1.21 mg/dL (Abnormal) Range: 0.55-1.20 Comments: The validity of the calculated GFR AND GFRAA in patients over70 years has not been determined. Clinical correlation isessential. :41 URINE EDWARD CULTURE-SHANAE COL Comments: PATIENT NOT FASTINGPERFORMED BY: [facility] Uiswqo8881 [facility] [id number] Information: SRC:[facility] [id number] COUNT (59370) Result 1 MUG (Normal) Comments: Mixed urogenital flora10,000-25,000 colony forming units per mL Urine Final report (Normal) Culture,Comprehensive 04-Lke-739054:51 COMPLEMENT, TOTAL (CH50) Comments: PATIENT NOT FASTINGPERFORMED BY: [address] [id number] Information: [id number] (70578) Complement, Total (CH50) 59 U/mL (Normal) Range: 42-62 27-Vhu-484523:52 COMPLEMENT C4 (96512) Comments: PATIENT NOT FASTINGPERFORMED BY: [address] [id number] Complement C4, Serum 28 {mg/dL_Adult} (Normal) Range: 9-36 68-Oek-138430:52 COMPLEMENT C3 (16119) Comments: PATIENT NOT FASTINGPERFORMED BY: [address] [id number] Complement C3, Serum 118 {mg/dL_Adult} (Normal) Range: 90-180 31-Pki-061608:52 CBC, Platelets & Auto Comments: PATIENT NOT FASTINGPERFORMED BY: [address] [id number] Information: [id number] Diff (89616) Immature Grans (Abs) 0.0 {x10E3/uL} (Normal) Range: [...] 3.77-5.28 WBC 8.5 {x10E3/uL} (Normal) Range: 3.4-10.8 74-Dea-438644:52 Metabolic Panel, Comprehensive Comments: PATIENT NOT FASTINGPERFORMED BY: [facility] Jcicaq9787 [facility] [id number] (36136) ALT (SGPT) 13 [iU]/L (Normal) Range: 0-32 [...] Glucose, Serum 82 mg/dL (Normal) Range: 65-99 72-Uxn-335923:28 URINE EDWARD CULTURE-IDENTIFICATN Comments: PATIENT NOT FASTINGPERFORMED BY: LabCoSaint Francis Medical CenterZjbujo9625 [facility] [id number] (77597) Result 1 MUG (Normal) Comments: Mixed urogenital flora50,000-100,000 colony forming units per mL Urine Final report (Normal) Culture,Comprehensive 49-Jxc-602356:28 MICROALBUMIN: CREATININE Comments: PATIENT NOT FASTINGPERFORMED BY: LabCoSaint Francis Medical CenterRpvhta9279 [facility] [id number] Information: [id number] RATIO (19076) AND (83606) Microalb/Creat Ratio 125.4 {mg/g_creat} (Abnormal) Range: 0.0-30.0 Microalbumin, Urine 224.4 ug/mL (Abnormal) Range: 0.0-17.0 Creatinine, Urine 179.0 mg/dL (Normal) Range: 15.0-278.0 70-Xyd-053749:08 Urinalysis, Office (33404) UA - LEUKOCYTE ESTERASE Negative (Normal) UA - NITRITE Negative (Normal) URINE UROBILINGN SHANAE TIMED Normal mg/dL (Normal) UA - PROTEIN 100 mg/dL (Normal) UA - PH 6.5 (Normal) UA - BLOOD Non Hemolyzed Moderate (Normal) UA - SPECIFIC GRAVITY 1.030 (Abnormal) UA - KETONES Negative mg/dL (Normal) UA - BILIRUBIN Negative (Normal) UA - GLUCOSE Negative (Normal) 5-Zxd-795503:59 Free T3 Comments: Test performed at:[facility] [address]feeqzpvyc[address] [place] [address] FREE T3 2.2 pg/mL (Normal) Range: 2.18-3.98 8-Ylg-010684:59 T4 Free Direct Comments: Test performed at:[facility] Qiyodkdwty1625 [place] [address] T4 FREE DIRECT 1.00 ng/dL (Normal) Range: 0.76-1.46 7-Bkx-254233:59 Thyroid Peroxidase AB Comments: Test performed at:[facility] Ukwzzmwfgt1070 [facility] [place] [address] TPO AB 6676 8 {IU/mL} (Normal) Range: 0-34 Comments: Performed at: [address] [id number] Director: [place] Spivey PhD, Phone: [phone] 2-Bgr-725983:59 Thyroid Stim Hormone (TSH) Comments: Test performed at:[facility] Qdjsicchlz0654 [facility] [address] [place] [address] TSH 2.15 {uIU/mL} (Normal) Range: 0.358-3.74 85-Ekl-384215:51 Microscopic Examination Comments: PATIENT NOT FASTINGPERFORMED BY: [address] [id number] Bacteria Few (Normal) Mucus Threads Present (Normal) Epithelial Cells (non renal) 0-10 {/hpf} (Normal) Range: 0 - 10 RBC 0-2 {/hpf} (Normal) Range: 0 - 2 WBC 0-5 {/hpf} (Normal) Range: 0 - 5 83-Fap-267268:51 Thyroxine (T4) Free, Comments: PATIENT NOT FASTINGPERFORMED BY: [address] [id number] Information: [id number] Direct, S T4,Free(Direct) 1.02 ng/dL Range: 0.82-1.77 (Normal) 28-Feb-2015 Triiodothyronine,Free,Seru 2.3 pg/mL (Normal) Comments: PATIENT NOT FASTINGPERFORMED BY: [address] [id number] 10:51 m Range: 2.0-4.4 28-Feb-2015 Written Authorization WAR (Normal) Comments: PATIENT NOT FASTINGPERFORMED BY: [address] [id number] 10:51 Comments: Written Authorization Received.Authorization received from HILLARY RUSSELL [id number] by Mary Christensen 88-Yya-233087:51 Creatine Kinase Total (88672) Comments: PATIENT NOT FASTINGPERFORMED BY: [facility]University [facility] Mdpbpq9143 [facility]in [place] [id number] Creatine Kinase,Total,Serum 122 U/L (Normal) Range: 24-173 38-Lze-372712:51 CALCIFIDIOL (34107) VIT D 25 Comments: PATIENT NOT FASTINGPERFORMED BY: LabUniversity [facility] Xtgbqw2440 [facility] [place] [id number] Vitamin D, 25-Hydroxy 28.8 ng/mL (Abnormal) Range: 30.0-100.0 Comments: Vitamin D deficiency has been defined by the [place] [facility] and an Endocrine Society practice guideline as alevel of serum 25-OH vitamin D less than 20 ng/mL (1,2).The Endocrine Society went on to further define vitamin Dinsufficiency as a level between 21 and 29 ng/mL (2).1. IOM ([place] of Medicine). 2010. Dietary reference intakes for calcium and D. [place]: The National Academies Press.2. Chriss MF, Ez NC, Kilo MCCORMICK, et al. Evaluation, treatment, and prevention of vitamin D deficiency: an Endocrine Society clinical practice guideline. JCEM. 2010; 96(7):1911-30. 79-Ngd-770262:51 TSH (44872) Comments: PATIENT NOT FASTINGPERFORMED BY: [facility]University [facility] Pxkmqi6825 [facility] [id number] TSH 4.840 {uIU/mL} (Abnormal) Range: 0.450-4.500 59-Vrr-359618:51 URINALYSIS, W/ MICRO (43507) Comments: PATIENT NOT FASTINGPERFORMED BY: LabUniversity [facility] Yewena2473 [facility] [place] [id number] Microscopic Examination See below: (Normal) Comments: Microscopic was indicated and was performed. Microscopic Examination MICRON (Normal) Comments: Microscopic follows if indicated. Nitrite, Urine Negative (Normal) Urobilinogen,Semi-Qn 0.2 mg/dL (Normal) Range: 0.0-1.9 Bilirubin Negative (Normal) Occult Blood Negative (Normal) Ketones Negative (Normal) Glucose Negative (Normal) Protein Trace (Normal) WBC Esterase Negative (Normal) Appearance Clear (Normal) Urine-Color Yellow (Normal) pH 7.0 (Normal) Range: 5.0-7.5 Specific Gaston 1.018 (Normal) Range: 1.005-1.030 88-Loc-623083:51 METABOLIC PANEL, COMPREHENSIVE Comments: PATIENT NOT FASTINGPERFORMED BY: [employer]Services70 [facility]EC[facility] [id number] (72461) ALT (SGPT) 11 [iU]/L (Normal) Range: 0-32 [...] Glucose, Serum 86 mg/dL (Normal) Range: 65-99 89-Cvl-553571:51 CBC with auto diff Comments: PATIENT NOT FASTINGPERFORMED BY: [employer]70 [facility]EC[facility] [id number] Information: [id number] (77897) Immature Grans (Abs) 0.0 {x10E3/uL} (Normal) Range: [...] 3.77-5.28 WBC 4.7 {x10E3/uL} (Normal) Range: 3.4-10.8 46-Nmb-996663:46 Metabolic Panel, Basic Comments: PATIENT NOT FASTINGPERFORMED BY: [facility] Xydnat7113 [facility] [id number] Information: [id number] (87816) Calcium, Serum 9.2 mg/dL (Normal) Range: 8.7-10.2 [...] Glucose, Serum 79 mg/dL (Normal) Range: 65-99 11-Zdj-928990:08 CPK 85 U/L (Normal) Range: 26-192 47-Grj-412808:02 CPKISO tCKBB 0 % (Normal) Comments: Performed at: [facility] [id number] Director: Emmanuel Cary MD, Phone: [phone] tCKMACI 0 % (Normal) tCKMB 0 % (Normal) Range: 0-3 tCKMM 100 % (Normal) Range: 97-100 tCKMACII 0 % (Normal) tCPK 81 U/L (Normal) Range: 24-173 :02 MYOS 52 ng/mL (Normal) Range: 25-58 Comments: Performed at: [facility] [id number] Director: Emmanuel Cary MD, Phone: [phone] :24 BMP CO2 27.0 mmol/L (Normal) Range: [...] 37.1 mg/L (Normal) CREU 191.6 mg/dL (Normal) 05-Sxd-787062:42 CPK 3766 U/L (Abnormal) Range: 26-192 :42 CPKISO tCPK 4094 Comments: TEST RESULT LIMITSCK, Total+Isoenzymes, SerumCreatine Kinase,Total,Serum 4094 U/L H 24 - 173CK Isoenzymes:Macro Type 2 0 % Not Observe (Normal) dCK-MM 100 % 97 - 100Macro Type 1 0 % Not ObservedCK-MB 0 % 0 - 3CK-BB 0 % 0 TESTING PERFORMED AT [facility]. ORIGINAL REPORT ONFILE IN LAB CONTAINS ADDITIONAL TEST SITE INFORMATION. 1 MYOS 1188 Range: 25-58 7 ng/mL Comments: Performed at: [address] [id number] Director: Emmanuel Cary MD, Phone: [phone] - (Abnormal D ) e c - 2 0 1 3 1 6 : 4 2 37-Xft-417501:52 MRSAD tMRSA Negative (Normal) SOURCE: NASAL SWAB (Normal) 67-Dvc-828549:09 CUV VAC See Note (Normal) Comments: No Gardnerella, Neisseria orbeta-hemolytic Streptococcus isolated. [place] GROW[place] VERY RARE ORGANISM 1: YEAST GS See Note (Normal) Comments: Score = 0 Interpretation:Score 0 - 3 - Normal Jeni Score 4 - 6 - Intermediate Jeni Score 7 - 10 - Suggestive of Bacterial Vaginosis GRAM STAIN3+ EPITHELIAL CELLS4+ GRAM POSITIVE RODSNO GRAM NEGATIVE DIPLOCOCCI : CUW Comments: ULCER OF COCCYX WC See Note (Normal) Comments: Possible skin contamination, further Identification andsensitivity will be performed only by physician's request. AM[place] GROWTH 1+ ORGANISM 1: COAG NEGATIVE STAPH GS See Note (Normal) Comments: GRAM STAINRARE EPITHELIAL CELLSRARE GRAM POSITIVE RODS : HSAN Comment (Normal) Comments: NegativeNo Herpes simplex virus isolated.Performed at: [address] [id number] Director: Gee Lord PhD, Phone: [phone] :18 CDIF See Note (Normal) Comments: A [...] in these cases. C. DIFF ANTIGENS NEGATIVE : CUST SHIGA See Note (Normal) Comments: SHIGA TOXIN 1 AND SHIGA TOXIN 2 NOT DETECTED CULST See Note (Normal) Comments: No Salmonella, Shigella, Yersinia or Campylobacter isolated.No significant amount of Staphylococcus aureusor yeast-like organisms isolated. : STOB See Note (Normal) Comments: OCCULT BLOOD [...] ng/mL 25 - 58 TESTING PERFORMED AT [facility]. [facility] T ONFILE IN LAB CONTAINS ADDITIONAL TEST SITE INFORMATION. :41 MISC2 (Normal) Comments: TEST RESULT LIMITSCarnitine, Total and FreeCarnitine, Total 56 umol/L 25 - 69Carnitine, Free 38 umol/L 16 - 60Esterified/Free 0 .5 Ratio 0.1 - 0.9Esterified/Free Ratio is a calculated value equal to TotalCarnitine minus Free Carnitine divided by the FreeCarnitine. _TESTING PERFORMED AT [facility]. ORIGINAL REPORT ONFILE IN LAB CONTAINS ADDITIONAL TEST SITE INFORMATION. :41 ZI 77 ug/dL (Normal) Range: 56-134 Comments: Detection Limit = 5Performed at: [facility] [address] [id number] Director: Gee Lord PhD, Phone: [phone] at: [facility] [email or web address] [place], [place] [id number] Director: Ketan Lopez MD, Phone: [phone] 18-Jun-20138:52 Urinalysis, Office (15335) UA - BILIRUBIN Negative (Normal) UA - BLOOD Negative (Normal) UA - GLUCOSE Negative (Normal) UA - KETONES Negative mg/dL (Normal) UA - LEUKOCYTE ESTERASE Negative (Normal) UA - NITRITE Negative (Normal) UA - PH 7.0 (Normal) UA - PROTEIN Trace mg/dL (Normal) UA - SPECIFIC GRAVITY 1.025 (Normal) Comments: 1.030 URINE UROBILINGN SHANAE TIMED Normal mg/dL (Normal) 0-Czx-862408:13 Pathology Report Comments: PERFORMED BY: [facility] [id number] [facility] [id number] BY: [facility] [place] [id number] [facility] [id number] Information: [id number] See MATER Comments: Material submitted: .VULVA BXClinical [...] INRARE MOSTLY INDIVIDUAL SCATTERED LYMPHOCYTES. NO SIGNIFICANT [id number] IS APPRECIATED. BOTH CD10 AND BCL-6 STAININDIVIDUAL [...] SUBMITTED IN TOTO IN A SINGLE CASSETTE.XJW/BXSCPT .921001, 920827, O72991, F99317, R08647, H07276, P8 3425, V89303, M46226,B91358, U21341, V35424, Q39428, 135027, 869669 1 HS12G Comments: The specimen submitted does not meet the laboratory'scriteria for acceptability. Refer to [facility]'s Directory ofServices for specimen acceptability criteria.RECEIVED: VIRAL TRANSPORTREQUIRES: SERUMCONTA 1 (Normal) CTED LAURA APPLE AT YOUR FACILITY 0-26-51HOTBYXF: PERFORM [id number] HSV CULTURE WITH TYPINGNegative <0.9Equivocal 0.9 - 1.0Positive >1.0.Note: Negative indicates no antibodies detected - toeither HSV-1 or HSV-2. Equivocal may suggest earlyinfection. If clinically appropriate, retest at alater date. Positive indicates antibodies detectedto HSV-1 and/or HSV-2. M a r - 2 0 1 3 1 2 : 1 7 10-Ucv-626091:23 CBCD ANC 4.1 3/uL (Normal) Range: 2.0-7.7 [...] 4.2-5.4 WBC 5.8 K/mm3 (Normal) Range: 4.4-11.0 90-Tha-669948:23 CKMB CPKMB 1.3 ng/mL (Normal) Range: 0.0-5.0 Comments: CK-MB and RI Interpretation MB Relative Index Non-AMI <or= 5 NA Indeterminate > 5 <or= 4 AMI > 5 > 4 CPK 123 U/L (Normal) Range: 26-192 48-Kmu-037726:23 CMP GAP 9 (Normal) Range: 5-15 CO2 [...] 7-18 GLU 89 mg/dL (Normal) Range: 70-110 59-Cwh-566934:23 TROP < 0.02 ng/mL (Normal) Comments: TROPONIN-I EXPECTED VALUES <0.05 NEGATIVE 0.06 - 0.59 AT RISK OF SC > OR = 0.60 SUGGEST SC 9-Oct-53325:00 BRAIN W/WO CONTRAST Radiology Report See Note [...] Lutz M.D.August 25, 2012 at 2:18:09 PM [id number] Signed DN/DN If you are the referring physician and would like to consult with theradiologist who provided th is interpretation, please contact Lorena Velazquez M.D. at [phone]. If this radiologist is unavailable, youwillbe directed to another radiologist to assist. If you are a patient with a question rega rding this report, pleasecontactyour referring physician directly. Professional Interpretation Provided By: Wayger, Phone , These documents contain legally protected [...] ofconfusion and difficulty finding words. TECHNIQUE: 3-D zplx-jc-wqpwws (TOF) imaging was performed with MIPs.Thestudy was [...] of the anterior cerebral artery. Normal left C1mwanktdw of the anterior cerebral artery. Normal intact anteriorc ommunicating artery (ACOM). Normal visualized proximal bilateral V0gcoyvjhu of the anterior cerebral arteries. Normal right [...] is no demonstra mara aneurysm of the rampart of Mel[place], within thetechnical limitations of this modality. No demonstrated hemodynamicallysignificant stenosis or major branch occlusion. IMPRESSION:No significant abnormal ity of visualized intracranial vasculature. Signed:Lorena Lutz M.D.August 25, 2012 at 2:24:09 PM [id number] Signed DN/DN If you are the referring physician and would like to cons ult with theradiologist who provided this interpretation, please contact Lorena Velazquez M.D. at [phone]. If this radiologist is unavailable, youwillbe directed to another radiologist to assist. If you are a patient with a question regarding this report, pleasecontactyour referring physician directly. Professional Interpretation Provided By: Wayger, Phone , Thes e documents contain legally [...] on 08/25/121755 Sign by: LORENA LUTZ MD 6-Unp-480767:19 ANCA tATYPANCA <1:20 {titer} Comments: The atypical pANCA pattern has been observed in asignificant percentage of patients with ulcerative colitis,primary sclerosing cholangitis and autoimmune hepatitis.Performed at: [facility] (Normal) [place], [place] [id number] Director: Katelin Swift MD, Phone: [phone] tANCAP <1:20 {titer} Comments: The presence of positive fluorescence exhibiting P-ANCA orC-ANCA patterns alone is not specific for the diagnosis ofWegener's Granulomatosis (WG) or microscopic polyangiitis.Decisions about treatment sh (Normal) ould not be based solely onANCA IFA results. The International ANCA Group Consensusrecommends follow up testing of positive sera with both ID-3 and MPO-ANCA enzyme immunoassays. As many as 5% serumsamp les are positive only by EIA. Ref. AM J Clin Zqjpmm9265;111:507-513. tANCAC <1:20 {titer} (Normal) 31-Mhp-260400:3 MISC . (Normal) Comments: TEST RESULT LIMITSANCA PanelAntimyeloperoxidase (MPO) Abs < 9.0 U/mL 0.0 - 9.0Antiproteinase 3 (ID-3) Abs < 3.5 U/mL 0.0 - 3.5Cytoplasmic [...] up testing of positive sera with both ID-3and MPO-ANCA enzyme immunoassays. As many as 5% serumsamples are positive only by EIA.Ref. AM J Clin Pathol 1999;111:507-513.Atypical pANCA < 1:20 titer Neg:<1:20The atypical pANCA pattern has been observed in asignificant percentage of patients with ulcerative colitis,primary sclerosing cholangitis and autoimmune hepatitis. TESTING PERFORMED AT [facility]. ORIGINAL REPORT ON FILE IN LAB CONTAINS ADDITIONAL TEST SITE INFORMATION. 36-Ydt-851989:52 BILAT SCRN DIGITAL & CAD Radiology Report [...] a clinically suspiciousabnormality. Signed:Oni Leone M.D.June 30 at 4:03:08 PM [id number] Signed GP/GP If you are the referring physician and would like to consult with theradiologist who provided this interpretation, please contact Jeremie moreira M.D. at [phone]. If this radiologist is unavailable, youwill be directed to another radiologist to assist. If you are a patient with a question regarding this report, pleasecontactyour refer ring physician directly. Professional Interpretation Provided By: Wayger, Phone , These documents contain legally protected [...] destructionofthese documents. Dictated on 06/30/12 1453 by Rin Estrellaranscribed on 06/30/12 1608 by ITS IMPORTSign by Oni Leone MD on 06/30/12 1609 Sign by: Oni Leone MD 27-May-2012 C3 92 (Normal) Range: 90-180 11:56 Comments: INFCE Result Units: mg/dL AdultPerformed at: [facility] [address] [id number] Director: Katelin Swift MD, Phone: [phone] 27-May-2012 C4 24 (Normal) Range: 9-36 11:56 Comments: INFCE Result Units: mg/dL Adult 30-Kuo-267805:56 CBCD ANC 3.4 3/uL (Normal) Range: 2.0-7.7 [...] 4.2-5.4 WBC 4.4 K/mm3 (Normal) Range: 4.4-11.0 05-Xpm-143027:56 CMP Comments: Interface Comments: VERIFIED DX 03/24/12 AST Order Date: 03/24/12Diagnosis: 782.3 - SYMPTOMS INVOLVING SKIN AND OTHER INTEGUMENTARY TISSUE, EDEMA (782.3)OV Order #: [id number] ID: [id number] ORDERED BMP HAS A COPY TO GO TO GAP [...] OTHER INTEGUMENTARY TISSUE, EDEMA (782.3)OV Order #: [id number] ID: [id number] ORDERED BMPDR.FLOYD HAS A COPY TO GO TO Range: 1.8-2.4 :56 PHOS 2.9 mg/dL (Normal) Comments: Interface Comments: VERIFIED DX 03/24/12 AST Order Date: 03/24/12Diagnosis: 782.3 - SYMPTOMS INVOLVING SKIN AND OTHER INTEGUMENTARY TISSUE, EDEMA (782.3)OV Order #: [id number] ID: [id number] ORDERED BMPDR.EVERETT HAS A COPY TO GO TO Range: 2.5-4.9 93-Sdq-689728:56 PROCRER tPROCRER 207 {mg/g_CRE} (Abnormal) Range: 0-200 PROUR 20.5 mg/dL (Abnormal) CREU 98.9 mg/dL (Normal) :56 PTHIN 63 pg/mL (Normal) Range: 14-72 :56 VITD 43.5 ng/mL (Normal) Range: 30.0-100.0 Comments: Vitamin D deficiency has been defined by the [place] [employer] and an Endocrine Society practice guideline as alevel of serum 25-OH vitamin D less than 20 ng/mL (1,2).The Endocrine Society went on to further define vitamin Dinsufficiency as a level between 21 and 29 ng/mL (2).1. IOM ([place] of [employer]). 2010. Dietary reference intakes for calcium and D. [place]: The National Academies Press.2. Chriss MF, Ez MUSE, Kilo MCCORMICK, et al. Evaluation, treatment, and prevention of vitamin D deficiency: an Endocrine Society clinical practice guideline. JCEM. 2010; 96(7):1911-30. 9-Kat-684600:23 CMP Comments: STATRESULTS FAXED TO DR RUSSELL [...] 7-18 GLU 86 mg/dL (Normal) Range: 70-110 :23 CPK 154 U/L (Normal) Comments: STATRESULTS FAXED TO DR RUSSLEL 03/24/12 VÍCTOR AZUL. Range: 26-192 86-Glw-887783:53 ABDOMEN/PELVIS WITHOUT CONT Radiology Report See Note [...] with mild facet and ligamento us hypertrophy fpxgC6lh S1 with mild foraminal and spinal stenosis. The disk bases are notnarrowed.. IMPRESSION:No acute process of the abdomen and pelvis. Status post hysterectomy. Tiny umbilical katy ia. The appendix is not identified. No renal, ureteral, or bladder stones or obstruction. Bulging disks from L3 to S1 with mild foraminal and spinal stenosis. Signed:Nicholas William M.D.March 13, 2012 a t 4:49:02 PM EDTElectronically Signed PF/PF Professional Interpretation Provided By: [facility], , To consult with a radiologist regarding thi s report, please call our 12L7tfeyimg line @ Dictated on 03/13/12 1559 by Nicholas William MDTranscribed on 03/13/121652 by ITS IMPORTSign by Nicholas William MD on 03/13/121652 Sign by: Nicholas William MD 47-Sqj-316993:30 Urinalysis, Office (75337) UA - BILIRUBIN Negative (Normal) UA - [...] (Normal) UR COLLECT TIME 24.0 {HOURS} (Normal) :36 COMP METABOLIC GAP 8 (Normal) Range: 5-15 [...] 7-18 GLU 103 mg/dL (Normal) Range: 70-110 :27 CBCD,SMEAR DIFF RED CELL MORPH SeeNote {NORMAL} [...] 4.2-5.4 WBC 8.9 K/mm3 (Normal) Range: 4.4-11.0 03-Ynk-467302:27 COMP METABOLIC Comments: MG ADDED 01/01/12 GAP [...] (Normal) Comments: MG ADDED 01/01/12 Range: 1.5-2.2 :10 CBCD,SMEAR DIFF ANISO 1+ (Normal) RED CELL [...] 4.2-5.4 WBC 7.1 K/mm3 (Normal) Range: 4.4-11.0 02-Sgc-959368:10 COMP METABOLIC GAP 4 (Abnormal) Range: 5-15 [...] 7-18 GLU 78 mg/dL (Normal) Range: 70-110 92-Qla-694193:10 MITOCHN AB 6650 <20.0 {Units} (Normal) Comments: appt 12-31-11 Range: 0.0-20.0 Comments: Negative 0.0 - 20.0 Equivocal 20.1 - 24.9 Positive >24.9 . Mitochondrial (M2) Antibodies are found in 90-96% of patients with primary biliary cirrhosis.Performed at: [facility] [address] [id number] Director: Katelin Swift MD, Phone: [phone] 69-Ojj-522580:14 Urinalysis, Office (89214) UA - NITRITE Negative (Normal) URINE UROBILINGN [...] years) 6.0 - 27.0Roche ECLIA methodologyPerformed at: CB - [facility] [address] [id number] Director: Katelin Swift MD, Phone: [phone] FSH 4309 4.3 m[iU]/mL Comments: Follicular phase [...] 7-18 GLU 88 mg/dL (Normal) Range: 70-110 :52 COMPLETE UA MUCUS, URINE 0 SEEN {/hpf} [...] {IU/mL} (Normal) Range: 0-34 Comments: Performed at: [address] [id number] Director: Katelin Swift MD, Phone: [phone] :52 TSH 4.07 {uIU/mL} (Abnormal) Range: 0.358-3.74 :52 VIT D,25 06448 42.7 ng/mL (Normal) Comments: appt 09/10/11 Range: [...] 7-18 GLU 69 mg/dL (Abnormal) Range: 70-110 14-Wbs-681463:11 CPK TOTAL 82 U/L (Normal) Range: 26-192 Comments: Please note: Revised Creatinine Kinase (CK) Reference ramge effective 11/15/10. 1-Kpn-593966:07 BMP Comments: Please Note: TROPONIN REFERENCE RANGE [...] 7-18 GLU 72 mg/dL (Normal) Range: 70-110 :07 CBCD ABSOLUTE NEUT 4.1 3/uL (Normal) Range: [...] D-Dimer level indicates no DVT or PE. 8-Ukb-530695:07 TROPONIN-I < 0.02 ng/mL (Normal) Comments: Please Note: TROPONIN REFERENCE RANGE CHANGEEffective OCTOBER 17, 2009. Comments: TROPONIN-I EXPECTED VALUES <0.05 NEGATIVE 0.06 - 0.59 AT RISK OF SC > OR = 0.60 SUGGEST SC :00 CHEST, PA AND LATERAL Radiology Report [...] Rao on 12/20/102006 Sign by: Lupillo Rao 31-Qyh-29582:48 UPPER GI SERIES ONLY Radiology Report See [...] 10/03/10850 by Rin Leoneranscribed on 10/03/10850 by IVAN EDGESONSign by Adrian Leone on 10/05/1018 Sign by: Oni Leone 27-Sep-2010 H.PYLORI [id number] < 0.9 U/mL Range: 0.0-0.8 8:09 (Normal) Comments: Negative <0.9 Indeterminate 0.9 - 1.0 Positive >1.0Performed at: [address] [id number] Director: Katelin Swift MD, Phone: [phone] Plan of Care Name Dates Details Instructions [...] with (acute) exacerbation Planned Observations LIPID PANEL (77289)Indication: Hypercholesteremia On: 60-Wbe-576690:23 Request MICROALBUMIN 24 HOUR OR RANDOM (97973)Indication: Chronic kidney disease, stage III (moderate) On: 06-Mdg-866838:19 Request Comments: 24 hour urine for protein T3, FREE (TRIDOTHYRONINE) (06525)Indication: Hypothyroidism (acquired) On: :19 Request T4, FREE (THYROXINE) (44068)Indication: Hypothyroidism (acquired) On: :19 Request TSH (26808)Indication: Hypothyroidism (acquired) On: :17 Request Comments: do this tsh in mid to late december MICROALBUMIN 24 HOUR OR RANDOM (29680)Indication: IgA nephropathy, chronic On: :14 Request Comments: need 24 hour urine for total protein Urine Protein Electrophoresis (UPEP) (74771)Indication: Chronic kidney disease, stage III (moderate) On: 99-Rxe-871139:11 Request T3, FREE (TRIDOTHYRONINE) (94438)Indication: Abnormal TSH On: 73-Tah-732534: Request T4, FREE (THYROXINE) (91094)Indication: Abnormal TSH On: 80-Bhu-567373: Request TSH (32939)Indication: Abnormal TSH On: 01-Vbb-776219: Request Anti-TPO Antibody (04980)Indication: Abnormal TSH On: 25-Qmt-947328: Request CREATININE BLOOD (50161)Indication: MRI of brain abnormal On: 72-Bmf-66668:59 Request Anti-TPO Antibody (53290)Indication: Hypothyroidism (acquired) On: :49 Request T4, FREE (THYROXINE) (97440)Indication: Hypothyroidism (acquired) On: :49 Request T3, FREE (TRIDOTHYRONINE) (01950)Indication: Hypothyroidism (acquired) On: :49 Request TSH (69276)Indication: Hypothyroidism (acquired) On: :49 Request URINALYSIS, W/ MICRO (11275)Indication: Hypertensive kidney disease On: :49 Request MICROALBUMIN: CREATININE RATIO (11108) AND (36901)Indication: Hypertensive kidney disease On: :49 Request METABOLIC PANEL, COMPREHENSIVE (05160)Indication: Hypertensive kidney disease On: 0-Sut-926707:49 Request CBC W/AUTO DIFF WBC (20181)Indication: Hypertensive kidney disease On: 9-Gvw-141661:49 Request LIPID PANEL (14945)Indication: Hypertensive kidney disease On: 0-Hgt-108750:49 Request MYCOPLAMA PNEUM AB IgG/IgM 299286 (99260)Indication: Cough On: 03-Zzy-140817:41 Request TSH (25385)Indication: Hypothyroidism (acquired) On: 39-Fwk-341699:57 Request CALCIFIDIOL (01108) VIT D 25Indication: CKD (chronic kidney disease) On: :34 Request TSH (11930)Indication: Hypothyroidism (acquired) On: :34 Request METABOLIC PANEL, COMPREHENSIVE (22772)Indication: CKD (chronic kidney disease) On: :34 Request CBC with auto diff (76512)Indication: CKD (chronic kidney disease) On: :34 Request T3, FREE (TRIDOTHYRONINE) (98252)Indication: Hypothyroidism (acquired) On: 83-Myp-932992:40 Request T4, FREE (THYROXINE) (46234)Indication: Hypothyroidism (acquired) On: :40 Request TSH (89206)Indication: Hypothyroidism (acquired) On: 72-Nvo-192126:40 Request Anti-TPO Antibody (91537)Indication: Hypothyroidism (acquired) On: :40 Request T3 UPTAKE (51220)Indication: Abnormal TSH On: :52 Request T4, TOTAL (89464)Indication: Abnormal TSH On: 50-Vgv-854103:52 Request T4, FREE (THYROXINE) (40264)Indication: Abnormal TSH On: :52 Request TSH (57873)Indication: Abnormal TSH On: 18-Hhx-331601:51 Request T4, FREE (THYROXINE) (87500)Indication: Abnormal TSH On: 34-Ymj-063400:25 Request T3, FREE (TRIDOTHYRONINE) (09805)Indication: Abnormal TSH On: 92-Cdz-054554:24 Request MYOGLOBIN (86475)Indication: Rhabdomyolysis (Renamed from Disease characterized by destruction of skeletal muscle) On: 67-Ehv-102981:33 Request CPK TOTAL & ISOENZYMES (06816)Indication: Rhabdomyolysis (Renamed from Disease characterized by destruction of skeletal muscle) On: 02-The-789153:32 Request FECAL OCCULT HGB ASSAY- tubes sent home (65870)Indication: Well woman exam with routine gynecological exam On: 58-Cfh-269774:12 Request OCCULT BLOOD FECES SCREEN- card done in office (62054)Indication: Well woman exam with routine gynecological exam On: 17-Vfx-531841:12 Request Thin prep Pap (18809)Indication: Well woman exam with routine gynecological exam On: 21-Ibk-259765:12 Request MICROALBUMIN: CREATININE RATIO (78295) AND (38224)Indication: CKD (chronic kidney disease) On: 1-Jzo-194818:02 Request Metabolic Panel, Basic (04625)Indication: Rhabdomyolysis (Renamed from Disease characterized by destruction of skeletal muscle) On: 6-Mmu-466640:53 Request MYOGLOBIN (82103)Indication: Rhabdomyolysis (Renamed from Disease characterized by destruction of skeletal muscle) On: 30-Xto-758718:04 Request CPK TOTAL & ISOENZYMES (16828)Indication: Rhabdomyolysis (Renamed from Disease characterized by destruction of skeletal muscle) On: 06-Yyz-414489:04 Request MRSA Culture (06233)Indication: Decubitus ulcer of coccyx On: 11-Epz-889492:40 Request HSV CULTURE SCREEN 418743 (08776)Indication: Genital ulcer, female On: 35-Wgo-74001:55 Request Culture, Aerobic, Bacterial ID (62657)Indication: Decubitus ulcer of coccyx On: 03-Bpd-68048:39 Request NuSwab STD (STD W/ Herpes) (07399)Indication: Genital ulcer, female On: :36 Request Comments: intra vaginal area and lesion CULTURE, VAG/CX COMPREHENSIVE (68478)Indication: Genital ulcer, female On: 66-Jci-26601:44 Request CALCIUM SERUM (86975)Indication: Hypocalcemia On: 0-Wbi-688260:21 Request LACTATE (LACTIC ACID) (52034)Indication: Muscle pain On: :18 Request Comments: stat ZINC, BLOOD (22116)Indication: Muscle pain On: :17 Request Comments: stat MAGNESIUM (65976)Indication: Muscle pain On: :17 Request Comments: stat Metabolic Panel, Comprehensive (73527)Indication: Muscle pain On: :17 Request Comments: stat MYOGLOBIN (56648)Indication: Muscle pain On: :17 Request Comments: stat CPK TOTAL & ISOENZYMES (45674)Indication: Muscle pain On: :17 Request Comments: stat ASSAY, CARNITINE, SHANAE, EACH SPEC (61294)Indication: Muscle pain On: :14 Request OVA & PARASITE DIR SMEAR (46754)Indication: DIARRHEA On: : Request OCCULT BLOOD FECES SCREEN (75899)Indication: DIARRHEA On: : Request LEUKOCYTE COUNT, FECAL (62962)Indication: DIARRHEA On: : Request C-DIFFICILE, STOOL (58195)Indication: DIARRHEA On: : Request EDWARD CULTURE-STOOL (42674)Indication: DIARRHEA On: :06 Request Lyme Disease,Serum, Western Blot (52071)Indication: Neck pain on right side On: 23-Gcb-140517:07 Request Lyme Disease Antibody W/ Reflex (45680)Indication: Neck pain on right side On: 62-Tmx-792486:07 Request Herpes Simplex II Ag, Direct Fluorescent Ab (86007)Indication: Uncomplicated herpes simplex On: 72-Qsu-668031:05 Request Herpes Simplex I Ag, Direct Fluorescent Ab (53591)Indication: Uncomplicated herpes simplex On: 44-Vvp-853592:05 Request CBC with manual diff (07644)Indication: Essential hypertension On: 41-Cje-799082:57 Request Metabolic Panel, Comprehensive (08552)Indication: Essential hypertension On: 40-Uha-550403:15 Request Troponin I (53316)Indication: Chest pain On: 88-Urv-120712:14 Request Comments: stat CPK MB FRACTION (48517)Indication: Chest pain On: 83-Lfy-215636:14 Request Comments: stat CREATINE KINASE TOTAL (38849)Indication: Chest pain On: 28-Kff-158522:14 Request Comments: stat ANCA-P (ANTI NEUTROPHIL CYTOPLASMIC ANTIBODY)Indication: Memory loss On: :01 Request ANCA-C (ANTI NEUTROPHIL CYTOPLASMIC ANTIBODY)Indication: Memory loss On: :01 Request Metabolic Panel, Basic (58134)Indication: Edema, unspecified On: :01 Request Creatine Kinase Total (72026)Indication: Rhabdomyolysis (Renamed from Disease characterized by destruction of skeletal muscle) On: :27 Request Metabolic Panel, Comprehensive (51481)Indication: Rhabdomyolysis (Renamed from Disease characterized by destruction of skeletal muscle) On: :26 Request Metabolic Panel, Comprehensive (01314)Indication: Pruritic disorder On: :01 Request Potassium Serum (51629)Indication: Hypokalemia On: :47 Request Comments: STAT Calcium Serum (15248)Indication: Hypokalemia On: :47 Request Comments: STAT MAGNESIUM (46335)Indication: Hypokalemia On: 67-Cjg-44444:52 Request CBC with manual diff (82271)Indication: Fatigue On: 66-Zvs-622017:42 Request Metabolic Panel, Comprehensive (06841)Indication: Hypokalemia On: 89-Llu-993771:41 Request ANTIMITOCHONDRIAL ANTIBODY (18016)Indication: Pruritic disorder On: :52 Request METABOLIC PANEL, COMPREHENSIVE (48080)Indication: Pruritic disorder On: :47 Request CBC WITH MANUAL DIFF (12142)Indication: Pruritic disorder On: :47 Request CREATININE CLEARANCE (55396)Indication: Chronic kidney disease, stage III (moderate) On: :48 Request 24 hour urine for Protein (59909)Indication: Chronic kidney disease, stage III (moderate) On: :48 Request Metabolic Panel, Basic (74736)Indication: Chronic kidney disease, stage III (moderate) On: 49-Gov-260926:36 Request MICROALBUMIN: CREATININE RATIO (29815) AND (20660)Indication: Chronic kidney disease, stage III (moderate) On: 70-Wuu-101125:33 Request ESTRADIOL (36587)Indication: Fatigue On: 20-Qms-436350:58 Request TSH (THYROID STIMULATING HORMONE) (91132)Indication: Abnormal TSH On: 29-Gym-930417:19 Request Comments: check in 8 weeks TSH (59528)Indication: Abnormal TSH On: :48 Request Anti-TPO Antibody (87346)Indication: Abnormal TSH On: :48 Request DNA ANTIBODY-NATV/DBL ST (07946) test code 506889Ckodagqugu: Fatigue On: :47 Request Vitamin D Hydroxy (92542)Indication: Fatigue On: Request VITAMIN B-12 (CYANOCOBALAMIN) (75874)Indication: Fatigue On: 47 Request URINALYSIS, W/ MICRO (37597)Indication: Fatigue On: :47 Request METABOLIC PANEL, COMPREHENSIVE (98261)Indication: Fatigue On: 47 Request CBC WITH MANUAL DIFF (00808)Indication: Fatigue On: :47 Request MONIQUE (ANTINUCLEAR ANTIBODY) (79221)Indication: Fatigue On: :47 Request C-REACTIVE PROTEIN (11163)Indication: Fatigue On: :46 Request SED RATE ERYTHROCYTE (85212)Indication: Fatigue On: :46 Request T4, FREE (THYROXINE) (67767)Indication: Abnormal TSH On: :30 Request T3, FREE (TRIDOTHYRONINE) (97454)Indication: Abnormal TSH On: :30 Request TSH (53847)Indication: Abnormal TSH On: :30 Request Potassium Serum (06591)Indication: Hypokalemia On: :20 Request Metabolic Panel, Comprehensive (93464)Indication: Rhabdomyolysis (Renamed from Disease characterized by destruction of skeletal muscle) On: :19 Request Creatine Kinase Total (01871)Indication: Rhabdomyolysis (Renamed from Disease characterized by destruction of skeletal muscle) On: :19 Request D-Dimer (96149)Indication: Chest pain On: :28 Request CBC (Auto) ([id number])Indication: Chest pain On: :28 Request Metabolic Panel, Basic ([id number])Indication: Chest pain On: :28 Request CARDIAC ISOENZYMES ([id number])Indication: Chest pain On: :28 Request HELICOBACTER PYLORI ANTIBODY ([id number])Indication: Abdominal pain, acute, generalized On: :55 Request Planned Procedures Spirometry ([id number])By: Gerry STRANGE, On: 10-Jun-2018 Intent Rosalinda Paris DO Comments: normal ELECTROCARDIOGRAM, COMPLETE (ECG) On: 10-Jun-2018 Intent ([id number])By: Rosalinda Garrett DO Comments: nsr no acute chg Rosalinda Garrett DO Radiology - Chest- PA and LatBy: On: 30-Oct-2017 Intent Rosalinda Garrett DO, DO, Kathleen Breast Ultrasound - LeftBy: Gerry On: 02-Oct-2017 Intent Rosalinda STRNAGE DO, Rosalinda Spot Compression - LeftBy: Gerry On: 02-Oct-2017 Intent DO, Rosalinda Gerry DO, Rosalinda Spot Compression - RightBy: Gerry On: 02-Oct-2017 Intent Rosalinda STRANGE DO, Kathleen Comments: if needed Breast Ultrasound - RightBy: On: 02-Oct-2017 Intent Rosalinda Garrett DO, DO, Comments: if needed Rosalinda SCREENING DIGITAL TOMOSYNTHESIS OF On: 02-Oct-2017 Intent BREAST ([id number])By: Rosalinda Garrett DO, DO, Kathleen ATTENDED SLEEP STUDY ([id number])By: On: 20-Jun-2017 Intent Amy Gonzalez CNP E SCREENING DIGITAL TOMOSYNTHESIS OF On: 11-Apr-2017 Intent BREAST ([id number])By: Rosalinda Garrett DO, DO, Kathleen MRA OF BRAIN ([id number])By: Gerry STRANGE, On: 19-Mar-2017 Intent Rosalinda Paris DO MRI BRAIN W/ CONTRAST ([id number])By: On: 19-Mar-2017 Intent Rosalinda Garrett DO, DO, Kathleen ELECTROCARDIOGRAM, COMPLETE (ECG) On: 19-Mar-2017 Intent ([id number])By: Rosalinda Garrett DO Comments: nsr no acute chg Rosalinda Garrett DO Spirometry ([id number])By: Gerry STRANGE, On: 19-Mar-2017 Intent Rosalinda Paris DO Comments: see scanned report Ultrasound - PelvisBy: Gerry STRANGE, On: 20-Feb-2017 Intent Rosalinda Paris DO Spirometry ([id number])By: Gerry STRANGE, On: 05-Dec-2016 Intent Rosalinda Paris DO Comments: normal Aerosol Treatment ([id number])By: On: 05-Dec-2016 Rosalinda Gaxiola DO, DO, Comments: Albuterol 0.83% given via nebulizer machine. Pt tolerated well.less noise and more a/e Rosalinda Solu- Medrol Injection, 125mg On: 05-Dec-2016 Intent ([id number])By: Rosalinda Garrett DO Comments: 2 ml given im rt glut lot [id number] exp 05/05 Rosalinda Garrett DO Radiology - Cervical SpineBy: On: 26-Mar-2016 Intent Hillary Russell MD Phenergan Injection, up to 50 mg On: 26-Mar-2016 Intent ([id number])By: Hillary Russell MD Toradol Injection, 30 mg On: 26-Mar-2016 Intent ([id number])By: Hillary Russell MD Kenalog Injection, 10 mgm On: 12-Feb-2016 Intent ([id number])By: Hillary Russell MD NEUROPSYCHOLOGICAL TESTING On: 29-Nov-2015 Intent ([id number])By: Hillary Russell MD MRI - Brain (IV Contrast On: 31-Oct-2015 Intent Needed)By: Hillary Russell MD Ultrasound - RenalBy: Lisa CONDE, On: 05-Sep-2015 Intent Amy Joseph Eprescribed prescriptions On: 31-Mar-2014 Intent ([id number])By: Amy Gonzalez CNP MAMMOGRAM, SCREENING, BOTH BREASTS On: 03-Feb-2014 Intent ([id number])By: Hillary Russell MD Radiology - ChestBy: María MARTÍNEZ, On: 01-Feb-2014 Intent Hillary Peng Aerosol Treatment ([id number])By: Lisa On: 25-Jan-2014 Intent Amy CONDE Ultrasound - Abdomen Complete & On: 24-Nov-2013 Intent PelvisBy: Amy Gonzalez CNP Eprescribed prescriptions On: 17-Aug-2013 Intent ([id number])By: Long BAG PRESSER, Marisela L INFUSION, NORMAL SALINE SOLUTION , On: 18-Jun-2013 Intent 1000 CC (Special Coverage Comments: Normal Saline, Lot #[id number], exp. 10/01 1 ltr infused in L AC without difficulty, Instructions Apply. See MCM: 2048) ([id number])By: Amy Gonzalez CNP HYDRATION IV INFUSION, INIT On: 18-Jun-2013 Intent ([id number])By: Amy Gonzalez CNP Comments: IV initiated in: R ACwith 22 gaugenumber of attempts: x1 attempt without difficultyTolerated well: MAMTA Elizabeth Eprescribed prescriptions On: 16-Mar-2013 Intent ([id number])By: Adolfo GILBERTN Marisela L Eprescribed prescriptions On: 25-Jan-2013 Intent ([id number])By: Adolfo GILBERTN, Marisela L Eprescribed prescriptions On: 15-Jan-2013 Intent ([id number])By: Cy Mata LPNn L Toradol Injection, 30 mg On: 24-Nov-2012 Intent ([id number])By: Hillary Russell MD Comments: Lot #[id number]-right hipDose- 30mlgiven by: Didier Farrar LPN Eprescribed prescriptions On: 24-Nov-2012 Intent ([id number])By: Cy Mata LPNn L EKG ([id number])By: Isac OLEARY, On: 09-Sep-2012 Intent Saida Comments: sinus rhythm no changes compared to 03-24 Pulse Oximetry ([id number])By: Isac On: 09-Sep-2012 Intent Saida OLEARY Comments: 99% on room air MRA - brainBy: Hillary Russell MD On: 14-Aug-2012 Intent MRI - Brain (IV Contrast On: 14-Aug-2012 Intent Needed)By: Hillary Russell MD Eprescribed prescriptions On: 14-Aug-2012 Intent ([id number])By: Liberty Choi LPN TDAP VACCINE >7 IM ([id number])By: On: 25-Jun-2012 Intent Hillary Russell MD Comments: Lot #[id number]/8/14Site-left deltoidgiven by: Didier Farrar LPN MAMMOGRAM, SCREENING, BOTH BREASTS On: 25-Jun-2012 Intent ([id number])By: Hillary Russell MD EKG ([id number])By: Hillary Russell MD On: 24-Mar-2012 Intent Comments: see scanned document of test done to see results reviewed today with patient Pulse Oximetry ([id number])By: Lupillo, On: 24-Mar-[address] - Abdomen & Pelvis Stone On: 13-Mar-2012 Intent ProtocolBy: Amy Gonzalez CNP Nerve ConductionBy: Isac OLEARY, On: 06-Jan-2012 Intent Saida EMGBy: Saida Chau LPN On: 06-Jan-2012 Intent Solu -Medrol Injection, 125 mg On: 03-Jan-2012 Intent ([id number])By: Saida Chau LPN Comments: Lot #[id number]-right hipDose- 125 mggiven by: Didier Farrar LPN Radiology - ChestBy: María MARTÍNEZ, On: 20-Dec-2010 Intent Hillary Peng Pulse Oximetry ([id number])By: Lupillo, On: 20-Dec-2010 Intent JAMAR EKG ([id number])By: JAMAR Wesley On: 20-Dec-2010 Intent UGI (With [...] UP TO 125 MG Ordered: 03-Jan-2012 Pending Isac OLEARY Saida INJECTION, METHYLPREDNISOLONE SODIUM SUCCINATE, UP TO 125 MG Ordered: 05-Dec-2016 Pending Rosalinda Garrett DO, DO, Kathleen INJECTION, TRIAMCINOLONE ACETONIDE, NOT OTHERWISE SPECIFIED, 10 [...] Hypokalemia : DISCONTINUED - METABOLIC PANEL, BASIC ([id number]) Indication: Hypokalemia BMI 25.0-25.9,adult : How to [...] be. Was recently i n sun at [facility]. Has underlying autoimmune followed by Dr. Newsome [...] corrected R 20/15 L 20/15 and both 20/uncorrected - R 20/50 L 20/30 both Encounter Diagnosis: End: 31-Mar-2014 17:08 Memory loss (780.93), [...] the time. Note for Fatigue : had End: 06-Aug-2011 11:56 yroid w/u done end [...] (728.88), WWV V73.21 [facility] [employer] [place] [employer] [place] [employer]; a guarantor
--- OUTSIDE RECORDS SUMMARY | 2018-12-12 19:07 | XMS RPT_ITS | Continuity of Care Document ---
:1970 Author Organization [facility] Address [address] [facility] [address] [place] [address] Phone Care Team Providers Name Role Phone Rosalinda Garrett DO Unavailable Tanphaichitr - Childers, Neville Unavailable Jhoan Burks MD Unavailable Nadir Bangura DO Unavailable Juancarlos Mon Unavailable Albertina Lopez Unavailable Marisela Mata LPN Unavailable Unavailable MAMTA Choi Unavailable Unavailable Amy Gonzalez CNP Unavailable Unavailable Unavailable Problems Name Dates Details Abnormal MRI (R93.8, 793.99) Status: Active Abnormal TSH (R79.89, 790.6) [...] neg, myophosphorylase and myoadenylate de aminase at [facility], mitochondrial screening neg, [facility] rhabo/myopathy neg Status: Active Rheumatoid arthritis (M06.9, [...] Quantity: 90 {Tablet} Refills: 3 Ordered:21-Jan-2011 Long LINE WELDER, Marisela L Start : 21-Jan-2011 Active Cardizem [...] 90 days Quantity: 180 {Tablet} Refills: 0 Ordered:29-Jun-2018 Birdie Garrett DO, DO, Kathleen Start : 29-Jun-2018 Active PredniSONE 20 MG Oral Tablet 1 [...] 2 Views Result: Comments: See Note; NOTES: [facility] Imaging Services [address] [place] [address] Pelvis 1 or 2 Views MR#: [id number] Acct: [id number] Name: KRISTIN FAUST Edmund Rep #: [id number] D OB: 1970 F 47 From: Slava Lake MD PCP: Rosalinda Garrett DO Status: REG CLI Study: Pelvis 1 or 2 Views Date of Exam: 09/17/18 Exam# [id number] Ordering Dr: Re López MD STUDY: X-RAY [...] CC: Rosalinda Garrett DO; Re López MD Reception Centre Manager: Signed 16-Oct-2017 Bilat Brst Sky Stand Alone Result: Comments: See Note; NOTES: [facility] Services [address] [place] [address] Bilat Brst Sky Stand Alone MR#: [id number] Acct: [id number] Name: KRISTIN FAUST Rep #: [id number] : 1970 F 46 From: Oni Leone MD PCP: Rosalinda Garrett DO Status: REG CLI Study: Bilat Brst Sky Stand Alone Date of Exam: 10/16/17 Exam# [id number] Ordering Dr: Rosalinda Garrett MAMMOGRAPHY - BILATERAL [...] delay biopsy of a clinically suspicious abnormality. [id number] Electronically Signed: Oni Leone MD at 14:42 EST Tel [phone], Service support [phone], CC: Rosalinda Garrett DO Reception Centre Manager: Signed 16-Oct-2017 Breast Limited Unilateral Result: Comments: See Note; NOTES: [facility] [address] [place] [address] Breast Limited Unilateral MR#: [id number] Acct: [id number] Name: KRISTIN FAUST Rep #: [id number] : 1970 F 46 From: Oni Leone MD PCP: Rosalinda Garrett DO Status: REG CLI Study: Breast Limited Unilateral Date of Exam: 10/16/17 Exam# [id number] Ordering Dr: Rosalinda Garrett DO STUDY: ULTRASOUND [...] Oni Leone MD at 15:23 EST Tel [phone], Service support , CC: Rosalinda Garrett DO Reception Centre Manager: Signed 16-Oct-2017 DIAG MAMM W/CAD, BILAT Result: Comments: See Note; NOTES: [facility] [address] [place] [address] DIAG MAMM W/CAD, BILAT MR#: [id number] Acct: [id number] Name: KRISTIN FAUST Rep #: [id number] : 1970 F 46 From: Oni Leone MD PCP: Rosalinda Garrett DO Status: REG CLI Study: DIAG MAMM W/CAD, BILAT Date of Exam: 10/16/17 Exam# [id number] Ordering Dr: Rosalinda Garrett DO MAMMOG TIFFANIE [...] delay biopsy of a clinically suspicious abnormality. [id number] Electronically Signed: Oni Leone MD at 14:42 EST Tel [phone], Service support , Fa x [phone] CC: Rosalinda Garrett DO Reception Centre Manager: Signed 04-Apr-2017 Brain W/WO Contrast Result: Comments: See Note; NOTES: [facility] [address] [place] [address] Verdana 4d Brain W/WO Contrast MR#: [id number] Acct: [id number] Name: FAUSTKRISTIN Edmund Rep #: [id number] : 1970 F 46 From: Nir Zuleta MD PCP: Rosalinda Garrett DO Status: REG CLI Study: Brain W/WO Contrast Date of Exam: 04/04/17 Exam# [id number] Ordering Dr: Rosalinda Garrett DO STUDY: MRI [...] Service support , CC: Rosalinda Garrett DO Reception Centre Manager: Signed 04-Apr-2017 MRA Head ONLY without Contrast Result: Comments: See Note; NOTES: [facility] [address] [place] [address] Verdana 4d MRA Head ONLY without Contrast MR#: [id number] Acct: [id number] Name: FISH FAUST Rep #: [id number] : 1970 F 46 From: Kian Pedroza MD PCP: Rosalinda Garrett DO Status: REG CLI Study: MRA Head ONLY without Contrast Date of Exam: 04/04/17 Exam# [id number] Ordering Dr: Rosalinda Herron DO STUDY: MRA OF THE HEAD WITHOUT CONTRAST REASON FOR EXAM: Female, 46 years old. Memory loss, anisocoria, headaches. TECHNIQUE: 3-D fqjm-jb-utszpc (TOF) imaging was performed with M IPs. [...] There is no demonstrated aneurysm of the [place] of [place]. There is no major vessel occlusion or hemodynamically significant stenosis. There is no demonstrated abnormality of the visualized brain. MRI/MRA Head ON LY without Contrast IMPRESSION: Normal MRA of the head, without any interval change from prior study. Electronically Signed: Marcos Pedroza MD at 1:46 EDT Tel , Service suppo rt , CC: Rosalinda Garrett DO Reception Centre Manager: Signed 20-Apr-2016 Emergency Department Summary Result: Comments: See Note; NOTES: [facility] Medical Records Department [address] [place] [address] Emergency Department Summary MR#: [id number] Acct: [id number] Name: KRISTIN FAUST Rep #: [id number] : 1970 45 From: Markus Palma MD PCP: Rosalinda Garrett DO Status: DEP ER DATE OF SERVICE: 04/20/2016 HISTORY OF PRESENT ILLNESS: A 45-year-old woman who prese nts with myalgias that started yesterday with dark colored urine. This occurred after helping her mother lay yards of FAD ? IO. She has history of autoimmune disorder, renal [...] C: Rosalinda Garrett DO T: NTS JOB: [id number] 04/20/162341 <Electronically signed by Markus Palma MD> Date Markus Palma MD Cosigner S ignature (If Indicated): Date CC: Rosalinda Garrett DO Date Dictated: 04/20/161741 Date Transcribed: 04/20/161741 Reception Centre Manager: Signed 20-Apr-2016 Discharge Instruction Result: Comments: See Note; NOTES: [facility] Medical Records Department [address] [place] [address] Discharge Instruction 04/20/161741 MR#: [id number] Acct: [id number] Name: KRISTIN FAUST Rep #: [id number] : 1970 45 From: Markus Palma MD PCP: Rosalinda Garrett DO Status: REG ER ED Disposition - Plan for ED Patient: Disposition: Home or Assisted Living C [facility] Complaint: General Illness Instructions: ED Myalgias, ED Renal Insufficiency Referrals: Rosalinda Garrett DO [Primary Care Provider] - As Needed What to do if you have Problems For any incr eased pain, shortness of breath, bleeding, nausea or vomiting, chest pain, or any unexpected problems, contact your doctor. Call [facility] ([phone]) or report to the closest Emergency Room . Call 911 if necessary. 04/20/161743 <Electronically signed by Markus Palma MD> Date Markus Palma MD Cosigner Signature (If Ind icated): Date CC: Rosalinda Garrett 23-Feb-2016 12 Lead Electrocardiogram Result: Comments: See Note; NOTES: [facility] Cardiovascular Services [address] [place] [address] 12 Lead EKG 02/22/16103 MR#: [id number] Acct: [id number] Name: KRISTIN FAUST Rep #: [id number] : 1970 45 From: Davi Lutz MD [...] Normal ECG Confirmed by DAVI LUTZ ([id number]), research editor DICK SHIPLEY ([id number]) on 02/23/2016 2:52:46 PM Referred By: ABHISHEK Confirmed By:DAVI LUTZ 02/23/16 1452 Date ___ Davi Lutz MD CC: Hillary Russell MD Date Dictated: 02/22/16103 Date Transcribed: 02/22/16103 Reception Centre Manager: Signed 23-Feb-2016 EKG (22298) Result: [MEASUREMENTS ANALYSIS] Date of Test: 02/23/2016 13:44:59; Heart Rate: 72; IN Interval: 150; QRS: 88; QT Interval: 412; Corrected QT Interval (QTc): 433; P [place]: 57; QRS [place]: 55; T [place]: 41; Blood Pressure: 130/86 [ECG DIAGNOSTIC STATEMENTS] Date of Test: 02/23/2016 13:44:59; Summary: Sinus Rhythm WITHIN NORMAL LIMITS 22-Feb-2016 Emergency Department Summary Result: Comments: See Note; NOTES: [facility] Medical Records Department [address] [place] [address] Emergency Department Summary MR#: [id number] Acct: [id number] Name: KRISTIN FAUST Rep #: [id number] : 1970 45 From: Garcia Asencio MD [...] of 72 with no acute signs of PR, ischemia or dysrhythmia. White count of 11, [...] Hillary Russell MD T: [facility] JOB: [id number] 02/22/16 0535 <Electronically signed by Garcia Asencio MD> Date Garcia Asencio MD Cosigner Signature (If Indicated): Date CC: Hillary Russell MD Date Dictated: 02/22/16418 Date T ranscribed: 02/22/16418 Reception Centre Manager: Signed 22-Feb-2016 Discharge Instruction Result: Comments: See Note; NOTES: [facility] Medical Records Department [address] [place] [address] Discharge Instruction 02/22/16 0148 MR#: [id number] Acct: [id number] Name: KRISTIN FAUST Edmund Rep #: [id number] : 1970 45 From: Garcia Asencio MD [...] unexpected problems, contact your doct or. Call [facility] ([phone]) or report to the closest Emergency Room. Call 911 if necessary. 02/22/16 0529 <Electronically signed by Garcia Asencio MD> Date __ Garcia Asencio MD Cosigner Signature (If Indicated): Date CC: Hillary Russell MD 22-Feb-2016 Chest 1 View (Portable) Result: Comments: See Note; NOTES: [facility] [address] [place] [address] Verdana 4d Chest 1 View (Portable) MR#: [id number] Acct: [id number] Name: KRISTIN JACKSON Rep #: [id number] : 1970 F 45 From: Winston Espinosa PCP: Hillary Russell MD Status: REG ER Study: Chest 1 View (Portable) Date of Exam: 02/22/16 Exam# [id number] Ordering Dr: Garcia Asencio MD STUDY: X-RAY [...] at 1:42 EDT , Servic e support [phone], RAD/Chest 1 View (Portable) IMPRESSION: Normal x-ray examination of the chest. Electronically Signed: Winston Espinosa MD at 1:42 EDT , Service support [phone], CC: Hillary Russell MD; Garcia Asencio MD Reception Centre Manager: Signed 08-Nov-2015 Brain W/WO Contrast Result: Comments: See Note; NOTES: [facility] [address] [place] [address] Verdana 4d Brain W/WO Contrast MR#: [id number] Acct: [id number] Name: VIBHA FAUST Rep #: [id number] : 1970 F 44 From: Daylin Quintana MD PCP: Hillary Russell MD Status: REG CLI Study: Brain W/WO Contrast Date of Exam: 11/08/15 Exam# [id number] Ordering Dr: Aamir Russell MD STUDY: MRI [...] MD at 16:49 EST , Service support [phone], CC: Hillary Russell MD Reception Centre Manager: Signed 08-Sep-2015 Kidney and Bladder Result: Comments: See Note; NOTES: [facility] [address] [place] [address] Verdana 4d Kidney and Bladder MR#: [id number] Acct: [id number] Name: LISA FAUST Rep #: [id number] : 1970 F 44 From: Bia Cain MD PCP: Hillary Russell MD Status: REG CLI Study: Kidney and Bladder Date of Exam: 09/08/15 Exam# [id number] Ordering Dr: Amy Gonzalez STUDY: RENAL ULTRASOUND [...] 17 :16 EDT Tel , Service support [phone], CC: Amy Gonzalez; Hillary Russell MD Reception Centre Manager: Signed 27-Jun-2014 Ligia Vasquez Digital & CAD Result: Comments: See Note; NOTES: [facility] Imaging Services [address] [place] [address] Breast Imaging Report MR#: [id number] Acct: [id number] Name: KRISTIN YOUNG Rep #: [id number] : 1970 F 43 From: Oni Leone MD PCP: Hillary Russell MD Status: REG CLI Exam# [id number] Ordering Dr: Hillary Russell MD MAMMOGRAPHY - [...] Oni moreira MD at 11:04 EDT Tel [phone], Service support [phone], CC: Hillary Russell MD Reception Centre Manager: Signed 01-Feb-2014 Chest PA and Lateral Result: Comments: See Note; NOTES: [facility] Imaging Services [address] [place] [address] Radiology Report MR#: [id number] Acct: [id number] Name: KRISTIN YOUNG Rep #: [id number] : 1970 F 43 From: Winston Espinosa PCP: Hilalry Russell MD Status: REG CLI Study: Chest PA and Lateral Date of Exam: 02/01/14 Exam# [id number] Ordering Dr: Hillary Russell MD STUDY: X-RA [...] M.D. at 7:18 EDT , Service support [phone], Fax CC: Hillary Russell MD Reception Centre Manager: Signed 17-Dec-2013 Abdomen Complete Result: Comments: See Note; NOTES: [facility] Services [address] [place] [address] Ultrasound Report MR#: [id number] Acct: [id number] Name: KRISTIN YOUNG Rep #: [id number] : 1970 F 43 From: Oni Leone MD PCP: Status: REG CLI Study: Abdomen Complete Date of Exam: 12/17/13 Exam# [id number] Ordering Dr: Amy Gonzalez STUDY: ABDOMINAL ULTRASOUND [...] M.D. at 14:04 EST , Service support [phone], CC: Amy Gonzalez Reception Centre Manager: Signed 17-Dec-2013 Pelvic (Non ) Result: Comments: See Note; NOTES: [facility] [address] [place] [address] Ultrasound Report MR#: [id number] Acct: [id number] Name: KRISTIN YOUNG Rep #: [id number] : 1970 F 43 From: Oni Leone MD PCP: Status: REG CLI Study: Pelvic (Non ) Date of Exam: 12/17/13 Exam# [id number] Ordering Dr: Amy Gonzalez STUDY: ULTRASOUND OF [...] at 14:06 EST Tel , Service support [phone], CC: Amy Gonzalez Reception Centre Manager: Signed Family History Unknown Family Member Name [...] ANTI-KARY <0.2 {AI} (Normal) Range: 0.0-0.9 :19 Nvzn-Ssqgqczozfo-26 AB Comments: [facility] (refer to report for specific site)refer to report for address and phone number ANTISCLER <0.2 {AI} (Normal) Range: 0.0-0.9 :19 Antiextractable Nug Ag Comments: [facility] (refer to report for specific site)refer to report for address and phone number BRICENO Ab <0.2 {AI} (Normal) Range: 0.0-0.9 LINEN ROOM HOUSEPERSON Ab <0.2 {AI} (Normal) Range: 0.0-0.9 :19 ANTINUCLEAR ANTIBODIES DIRECT Comments: [facility] (refer to report for specific site)refer to report for address and phone number MONIQUE-DIRECT Negative (Normal) Comments: Performed at: CB - [facility] [id number] Director: West Spivey PhD, Phone: [phone] :19 CBC W/Diff, Automated Comments: [facility] [address] [place], [place], [id number] Absolute Lymph 1.12 {X10_3/ul} (Normal) Range: 0.83-4.51 [...] 4.2-5.4 WBC 6.3 K/mm3 (Normal) Range: 4.4-11.0 7-Trb-135031:19 CCP IgG Antibodies Comments: [facility] (refer to report for specific site)refer to report for address and phone number ANTI-CCP 419614 6 {units} (Normal) Range: 0-19 Comments: Negative <20 Weak positive 20 - 39 Moderate positive 40 - 59 Strong positive >59 7-Jyf-831607:19 Complement C3 Comments: [facility] (refer to report for specific site)refer to report for address and phone number COMP C3 128 mg/dL (Normal) Range: 82-167 0-Bjr-915119:19 Complement C4 Comments: [facility] (refer to report for specific site)refer to report for address and phone number COMP C4 28 mg/dL (Normal) Range: 14-44 4-Ash-910117:19 Comprehensive Metabolic Profil Comments: [facility] [address] [place], [address] GAP 8 (Normal) Range: 5-15 CO2 26.0 [...] Comments: Please note revised GLUCOSE reference range aldovobtd72/02/2018. 2-Dry-595604:19 CRP Comments: [facility] [address] [place], [place], [id number] C-REACTIVE PROT < 2.90 mg/L (Normal) Range: 0.0-3.0 Comments: C-Reactive Protein (CRP) provides useful information for thediagnosis, therapy and monitoring of inflammatory processesand associated diseases. For the evaluation of Relative Riskfor Cardiovascular Dise ase, a High Sensitivity CRP (HSCRP)should be ordered. :19 Erythrocyte Sed Rate Comments: [facility] [address] [place], [id number] SED RATE 2 mm/h (Normal) Range: 0-20 5-Hqf-203628:19 Hep B Surface Antibodies Comments: [facility] (refer to report for specific site)refer to report for address and phone number Hep B Christopher AB Reactive (Normal) Comments: Non Reactive: Inconsistent with immunity, less than 10 mIU/mL Reactive: Consistent with immunity, greater than 9.9 mIU/mL 1-Faf-672303:19 Hepatitis B Surface Ag Comments: [facility] (refer to report for specific site)refer to report for address and phone number HB SURF AG Negative (Normal) Comments: Performed at: - [facility] [address] [id number] Director: West Spivey PhD, Phone: [phone] at: - [facility] [id number] Director: Juan Clifton PhD, Phone: [phone] at: - [facility] [id number] Director: Iesha Ambrocio MD, Phone: [phone] 1-Msu-499546:19 Hepatitis C Antibodies Comments: [facility] (refer to report for specific site)refer to report for address and phone number HEP C AB <0.1 {s/co_ratio} Range: 0.0-0.9 (Normal) Comments: Negative: < 0.8 Indeterminate: 0.8 - 0.9 Positive: > 0.9 The CDC recommends that a positive HCV antibody result be followed up with a HCV Nucleic Acid Amplification test (318224). : HLA B27 Negative (Normal) Comments: [facility] (refer to report for specific site)refer to report for address and phone number 19 Comments: HLA-B*27 UlvplgbpK68 allele interpretation for all loci based on IMGT/HLAdatabase version 3.31.0This test was developed and its performance characteristicsdetermined by [facility]. It has not been cleared or approvedby the Food and Drug Administration.[facility] CLIA ID Number [id number] test was performed using PCR (Polymerase ChainReaction)/SSOP (Sequence Specific Oligonucleotide Probes)technique. S BT (Sequence Based Typing) and/or SSP(Sequence Specific Primers) may be used as supplementalmethods when necessary. Please contact [facility] CustomerService at if you have any questions. Director of [facility] Dr Juan Clifton, PhD :19 Protein+Creatinine Ratio,Urine Comments: [facility] [address] [facility] [place], [address] PROT:CRE RATIO 234 {mg/g_CRE} (Abnormal) Range: 0-200 PROTEIN,UR.RAN. 11.5 mg/dL (Normal) UR CREAT 49.10 mg/dL (Normal) :19 Rheumatoid Factor Comments: [facility] [address] [facility], [address] RHEUMATOID FAC < 10.0 {IU/mL} (Normal) :19 Sjogren's Antibodies A/B Comments: [facility] (refer to report for specific site)refer to report for address and phone number Anti-SS-B < 0.2 {AI} (Normal) Range: 0.0-0.9 Anti-SS-A < 0.2 {AI} (Normal) Range: 0.0-0.9 :19 Urinalysis, Routine (Dipstick) Comments: How was Urine Obtained? [facility] [address] [facility], [address] LEUK ESTERASE Negative /ul (Normal) OCCULT BLOOD-UR [...] Qn, 24-Hr Comments: PATIENT NOT FASTINGPERFORMED BY: LapioMeadowlands Hospital Medical CenterMyuzgt7639 [facility] [id number] Information: START 07/14/18@705AM Urine Prot,24hr calculated 71 {mg/24_hr} (Normal) Range: 30-150 Protein,Total,Urine 4.2 mg/dL (Normal) :38 Microscopic Examination Comments: PATIENT WAS FASTINGPERFORMED BY: [employer] [id number] BY: Project InsidersMeadowlands Hospital Medical CenterWukltq9262 [facility] [id number] Bacteria Few (Normal) Epithelial Cells (non renal) 0-10 {/hpf} (Normal) Range: 0 - 10 RBC 0-2 {/hpf} (Normal) Range: 0 - 2 WBC 0-5 {/hpf} (Normal) Range: 0 - 5 :38 T4, FREE (THYROXINE) Comments: PATIENT WAS FASTINGPERFORMED BY: [employer] [address] [id number] BY: [employer] Iqdhso0721 [facility] [id number] (89115) T4,Free(Direct) 1.45 ng/dL (Normal) Range: 0.82-1.77 :38 T3, FREE (TRIDOTHYRONINE) Comments: PATIENT WAS FASTINGPERFORMED BY: [employer] [address] [id number] BY: Project InsidersMeadowlands Hospital Medical CenterLccmyb8415 [facility] [id number] (93803) Triiodothyronine (T3), Free 2.6 pg/mL (Normal) Range: 2.0-4.4 :38 TSH (13750) Comments: PATIENT WAS FASTINGPERFORMED BY: [employer] [id number] BY: Project InsidersJerry V[place] 0279370 [facility] [id number] TSH 3.910 {uIU/mL} (Normal) Range: 0.450-4.500 :38 URINALYSIS, W/ MICRO Comments: PATIENT WAS FASTINGPERFORMED BY: [employer] [id number] BY: [employer] Blcqnr6259 [facility] [id number] (02924) Microscopic Examination See below: (Normal) Comments: Microscopic was indicated and was performed. Microscopic Examination MICRON (Normal) Comments: Microscopic follows if indicated. Nitrite, Urine Negative (Normal) Urobilinogen,Semi-Qn 0.2 mg/dL (Normal) Range: 0.2-1.0 Bilirubin Negative (Normal) Occult Blood Negative (Normal) Ketones Negative (Normal) Glucose Negative (Normal) Protein Negative (Normal) WBC Esterase Negative (Normal) Appearance Clear (Normal) Urine-Color Yellow (Normal) pH 7.0 (Normal) Range: 5.0-7.5 Specific Koppel 1.011 (Normal) Range: 1.005-1.030 :38 MICROALBUMIN: CREATININE Comments: PATIENT WAS FASTINGPERFORMED BY: [employer] [id number] BY: [facility] LabsDustin Ville 0867070 [facility] [id number] RATIO (48384) AND (42586) Alb/Creat Ratio 11.9 {mg/g_creat} (Normal) Range: 0.0-30.0 Albumin, Urine 7.4 ug/mL (Normal) Creatinine, Urine 62.1 mg/dL (Normal) 35-Ttf-66380:38 METABOLIC PANEL, Comments: PATIENT WAS FASTINGPERFORMED BY: [employer]upasston1447 [facility] [id number] BY: LabAfinity Life SciencesMeadowlands Hospital Medical CenterZezcpm1313 [facility] [id number] COMPREHENSIVE (21762) ALT (SGPT) 14 [iU]/L (Normal) Range: 0-32 [...] 6-24 Glucose 83 mg/dL (Normal) Range: 65-99 37-Wba-71005:38 LIPOPROTEIN, BLD, BY NMR Comments: PATIENT WAS FASTINGPERFORMED BY: [employer] [id number] BY: Project InsidersMeadowlands Hospital Medical CenterFhtsgo3682 [facility] [id number] (17740) LP-IR Score <25 (Normal) Comments: INSULIN RESISTANCE MARKER <--Insulin Sensitive Insulin Resistant--> Percentile in Reference PopulationInsulin Resistance ScoreLP-IR Score Low 25th 50th 75th High <27 27 45 63 >63LP-IR Score is inaccurate if patient is non-fasting. .The LP-IR score is a laboratory developed i [facility] that has beenassociated with insulin resistance [...] 1600 - 2000 Very High > 2000 77-Uvb-29336:38 CBC W/AUTO DIFF WBC Comments: PATIENT WAS FASTINGPERFORMED BY: BN [facility] Dhakfyoraa8598 [facility] [id number] BY: CB [facility] Dunejf0821 [facility] [id number] (34176) Immature Grans (Abs) 0.0 {x10E3/uL} (Normal) Range: [...] 3.77-5.28 WBC 8.2 {x10E3/uL} (Normal) Range: 3.4-10.8 87-Guk-762820:56 URINE EDWARD CULTURE-SHANAE COL Comments: PATIENT NOT FASTINGPERFORMED BY: [facility] LabsSelect Specialty Hospital6370 [facility] [id number] Information: SRC:UC COUNT (53555) Result 1 MUG (Normal) Comments: Mixed urogenital flora1,000 Colonies/mL Urine Culture,Comprehensive Final report (Normal) 36-Ccz-110539:11 Urinalysis, Office (31288) UA - LEUKOCYTE ESTERASE Negative (Normal) UA - NITRITE Negative (Normal) URINE UROBILINGN SHANAE TIMED Normal mg/dL (Normal) UA - PROTEIN Negative mg/dL (Normal) UA - PH 6 (Abnormal) UA - BLOOD Hemolyzed Trace (Normal) UA - SPECIFIC GRAVITY 1.030 (Abnormal) UA - KETONES Negative mg/dL (Normal) UA - BILIRUBIN Negative (Normal) UA - GLUCOSE Negative (Normal) 79-Pql-41863:55 Albumin, 24-Hr Urine Comments: PATIENT NOT FASTINGPERFORMED BY: [employer] Fasbjq0061 [facility] [id number] Albumin,Urine mg/day 34.8 {mg/day} (Abnormal) Albumin, Urine 34.8 ug/mL (Normal) 09-Cmu-784997:56 Protein Electro, Random Urine Comments: PATIENT WAS FASTINGPERFORMED BY: Project InsidersMeadowlands Hospital Medical CenterQhndve2181 [facility] [facility] [id number] Please note: SPRCS (Normal) Comments: Protein electrophoresis scan will follow via computer, mail, orcourier delivery. M-Jas, % Not Observed % (Normal) Gamma Globulin, U 7.5 % (Normal) Beta Globulin, U 15.8 % (Normal) Bmdyk-2-Wqferpth, U 4.0 % (Normal) Swkoo-1-Hswdcqrm, U 2.8 % (Normal) Albumin, U 69.9 % (Normal) Protein,Total,Urine 7.5 mg/dL (Normal) :55 Total Protein,24 Hour Comments: PATIENT NOT FASTINGPERFORMED BY: [facility]6370 [facility] [id number] Information: START 12/11/17@651AM Urine (60182) Prot,24hr calculated 119 {mg/24_hr} (Normal) Range: 30-150 Protein,Total,Urine 11.9 mg/dL (Normal) :56 LIPID PANEL (56104) Comments: PATIENT WAS FASTINGPERFORMED BY: [facility]6370 [facility] [id number] LDL/HDL Ratio 1.5 {ratio_units} (Normal) Range: 0.0-3.2 Comments: LDL/HDL Ratio Men Women 1/2 Avg.Risk 1.0 1.5 Av g.Risk 3.6 3.2 2X Avg.Risk 6.2 5.0 3X Avg.Risk 8.0 6.1 LDL Cholesterol Calc 105 mg/dL (Abnormal) Range: 0-99 VLDL Cholesterol Pete 17 mg/dL (Normal) Range: 5-40 HDL Cholesterol 69 mg/dL (Normal) Triglycerides 86 mg/dL (Normal) Range: 0-149 Cholesterol, Total 191 mg/dL (Normal) Range: 100-199 00-Abx-889448:56 MICROALBUMIN: CREATININE RATIO Comments: PATIENT WAS FASTINGPERFORMED BY: [facility]6370 [facility] [id number] (33505) AND (96008) Microalb/Creat Ratio 87.3 {mg/g_creat} (Abnormal) Range: 0.0-30.0 Microalbumin, Urine 41.4 ug/mL (Normal) Creatinine, Urine 47.4 mg/dL (Normal) :56 METABOLIC PANEL, COMPREHENSIVE Comments: PATIENT WAS FASTINGPERFORMED BY: [facility]6370 [facility] [id number] (27122) ALT (SGPT) 15 [iU]/L (Normal) Range: 0-32 [...] Glucose, Serum 84 mg/dL (Normal) Range: 65-99 81-Mri-842188:56 CBC W/AUTO DIFF WBC (82792) Comments: PATIENT WAS FASTINGPERFORMED BY: [facility] Fiprxu5246 [facility] [id number] Immature Grans (Abs) 0.0 {x10E3/uL} (Normal) Range: [...] Protein Electrophoresis Comments: PATIENT WAS FASTINGPERFORMED BY: Project InsidersCrownpoint Health Care FacilityHfklei5120 [facility] [id number] ([facility] (79056) Please note: SPRCS (Normal) Comments: Protein electrophoresis scan will follow via computer, mail, orcourier delivery. A/G Ratio 1.3 (Normal) Range: 0.7-1.7 Globulin, Total 3.0 g/dL (Normal) Range: 2.2-3.9 M-Jas Not Observed g/dL (Normal) Gamma Globulin 1.0 g/dL (Normal) Range: 0.4-1.8 Beta Globulin 1.1 g/dL (Normal) Range: 0.7-1.3 Xlmrt-1-Podvcrmy 0.7 g/dL (Normal) Range: 0.4-1.0 Enwrf-9-Umjyvwse 0.2 g/dL (Normal) Range: 0.0-0.4 Albumin 3.9 g/dL (Normal) Range: 2.9-4.4 :56 MAGNESIUM (68865) Comments: PATIENT WAS FASTINGPERFORMED BY: Project InsidersMeadowlands Hospital Medical CenterRaqjdl3962 [facility] [id number] Magnesium, Serum 2.1 mg/dL (Normal) Range: 1.6-2.3 :56 PHOSPHORUS (95838) Comments: PATIENT WAS FASTINGPERFORMED BY: [employer] Aexwwb0187 [facility] [id number] Phosphorus, Serum 3.1 mg/dL (Normal) Range: 2.5-4.5 :56 CALCIFEDIOL (99829) Comments: PATIENT WAS FASTINGPERFORMED BY: [facility] [employer] Ntgnxi8212 [facility] [place] [id number] Vitamin D, 25-Hydroxy 39.0 ng/mL (Normal) Range: 30.0-100.0 Comments: Vitamin D deficiency has been defined by the [place] of[facility] Board[facility] Hospitalcine and an Endocrine Society practice guideline as alevel of serum 25-OH vitamin D less than 20 ng/mL (1,2).The Endocrine Society went on to further define vitamin Dinsufficiency as a level between 21 and 29 ng/mL (2).1. IOM ([place] of Medicine). 2010. Dietary reference intakes for calcium and D. [place]: The National Academies Press.2. Chriss MF, Ez MUSE, Kilo MCCORMICK, et al. Evaluation, treatment, and prevention of vitamin D deficiency: an Endocrine Society clinical practice guideline. JCEM. 2010; 96(7):1911-30. :56 PARATHORMONE (48720) Comments: PATIENT WAS FASTINGPERFORMED BY: [facility] Uppxam6448 [facility] [place] [id number] PTH, Intact 30 pg/mL (Normal) Range: 15-65 :43 METABOLIC PANEL, COMPREHENSIVE Comments: PATIENT NOT FASTINGPERFORMED BY: [employer] Ghambi[address] [facility]in [place] [id number] (30990) ALT (SGPT) 10 [iU]/L (Normal) Range: 0-32 [...] Glucose, Serum 83 mg/dL (Normal) Range: 65-99 17-Vaa-501120:40 TSH (76483) Comments: week of Aug 04; PATIENT NOT FASTINGPERFORMED BY: FoodiniNov[facility] [id number] TSH 4.000 {uIU/mL} (Normal) Range: 0.450-4.500 2-Zqj-325401:10 URINE EDWARD CULTURE-IDENTIFICATN Comments: PATIENT NOT FASTINGPERFORMED BY: [facility]iniNov[facility] [id number] (31158) Result 1 MUG (Normal) Comments: Mixed urogenital flora10,000-25,000 colony forming units per mL Urine Final report (Normal) Culture,Comprehensive 4-Exs-260616:10 URINALYSIS (57415) Comments: PATIENT NOT FASTINGPERFORMED BY: [employer]70 [place] Self StorageNov[facility] Center [id number] Microscopic Examination MICNIP (Normal) Comments: Microscopic not indicated and not performed. Nitrite, Urine Negative (Normal) Urobilinogen,Semi-Qn 0.2 mg/dL (Normal) Range: 0.2-1.0 Bilirubin Negative (Normal) Occult Blood Negative (Normal) Ketones Negative (Normal) Glucose Negative (Normal) Protein Negative (Normal) WBC Esterase Negative (Normal) Appearance Clear (Normal) Urine-Color Yellow (Normal) pH 7.0 (Normal) Range: 5.0-7.5 Specific Koppel 1.007 (Normal) Range: 1.005-1.030 6-Bgt-493226:10 MICROALBUMIN: CREATININE RATIO Comments: PATIENT NOT FASTINGPERFORMED BY: Project InsidersMeadowlands Hospital Medical CenterKhtaui4642 [facility] [id number] (64989) AND (27248) Microalb/Creat Ratio 77.2 {mg/g_creat} (Abnormal) Range: 0.0-30.0 Microalbumin, Urine 26.4 ug/mL (Normal) Creatinine, Urine 34.2 mg/dL (Normal) 2-Xvw-798936:10 Metabolic Panel, Comments: PATIENT NOT FASTINGPERFORMED BY: [facility] [employer] Oajqht2577 [facility] [id number] Information: SRC:RUST (99247) ALT (SGPT) 13 [iU]/L (Normal) Range: 0-32 [...] (Normal) Range: 65-99 :10 T4, FREE (THYROXINE) (33022) Comments: PATIENT NOT FASTINGPERFORMED BY: [facility]6370 [facility] [id number] T4,Free(Direct) 1.03 ng/dL (Normal) Range: 0.82-1.77 :10 T3, FREE (TRIDOTHYRONINE) (72249) Comments: PATIENT NOT FASTINGPERFORMED BY: [facility]6370 [facility] [id number] Triiodothyronine,Free,Serum 2.8 pg/mL (Normal) Range: 2.0-4.4 :10 TSH (86974) Comments: PATIENT NOT FASTINGPERFORMED BY: LabSelect [facility]ty Hospital6370 [facility] [id number] TSH 5.160 {uIU/mL} (Abnormal) Range: 0.450-4.500 37-Ouk-524018:33 Serum Creatinine AND GFR Comments: [facility] Tw[address]vproyy[address] [place], [place], [id number] EST GFR - AA 61 mL/min (Normal) Comments: GFR Calc EST GFR 50 mL/min (Abnormal) Comments: Non- GFR Calc CREAT,SERUM 1.22 mg/dL (Abnormal) Range: 0.55-1.02 Comments: The validity of the calculated GFR AND GFRAA in patients over70 years has not been determined. Clinical correlation isessential. :14 CBC W/Diff, Automated Comments: [facility] Baawgpbalx[address] [place], [place], [id number] Absolute Lymph 1.12 {X10_3/ul} (Normal) Range: 0.83-4.51 [...] Range: 4.4-11.0 22-Mar-20178:14 Comprehensive Metabolic Profil Comments: [facility] Fbpyjmawio25[address] [place], [address] GAP 9 (Normal) Range: 5-15 CO2 26.0 [...] (Normal) Range: 70-110 :14 Free T3 Comments: [facility] Hcsneqwqgm[address] [place], [place], [id number] FREE T3 2.2 pg/mL (Normal) Range: 2.18-3.98 22-Mar-20178:14 Lipid Profile Comments: [facility] [address] [place], [place], [id number] VLDL 23 mg/dL (Normal) Range: 5-40 LDL [...] High Risk 22-Mar-20178:14 Microalb:Creat Ratio,Random UR Comments: [facility] [address] [place], [address] MALB:CREAT 18.6 {mg/g_CRE} (Normal) MICROALBUMIN,UR 18.6 mg/L (Normal) UR CREAT 100.00 mg/dL (Normal) :14 T4 Free Direct Comments: [facility] [address] [place], [address] T4 FREE DIRECT 0.83 ng/dL (Normal) Range: 0.76-1.46 :14 Thyroid Peroxidase AB Comments: [facility] (refer to report for specific site)refer to report for address and phone number TPO AB 9314 15 {IU/mL} (Normal) Range: 0-34 Comments: Performed at: [address] [id number] Director: West Spivey PhD, Phone: [phone] 22-Mar-20178:14 Thyroid Stim Hormone (TSH) Comments: [facility] Zksdinrelo8416 [place], [address] TSH 6.38 {uIU/mL} (Abnormal) Range: 0.358-3.74 :14 Urinalysis, Complete Comments: How was Urine Obtained? CLEAN [facility] [address] [place], [address] MUCUS, URINE 0 SEEN {/hpf} [...] (Normal) CLARITY Clear (Normal) COLOR Yellow (Normal) 32-Ukk-813695:10 Mycoplasma pneu. IgG/IgM Abs Comments: PATIENT NOT FASTINGPERFORMED BY: Project InsidersMeadowlands Hospital Medical CenterHamdqp5283 [facility] [id number] M pneumoniae IgM Abs <770 U/mL (Normal) [...] showing a significant increase in antibody levels. 51-Sac-28251:56 Bordetella Pertussis PCR Comments: PATIENT NOT FASTINGPERFORMED BY: [facility] [employer] [id number] Information: NASAL (98811) Bordetella parapertussis DNA Negative (Normal) Comments: This test was developed and its performance characteristics determinedby ticketstreet. It has not been cleared or approved by theU.S. Food and Drug Administration. The FDA has determined that lino chclearance or approval is not necessary. This test is used for clinicalpurposes. It should not be regarded as investigational or research. Bordetella pertussis DNA Negative (Normal) 7-Zwb-740262:50 CPK Total, Creatine Kinase Comments: [facility] [address]odt[address] Raymond[address] [place], [place], [address] CPK TOTAL 116 U/L (Normal) Range: 26-192 8-Xqw-070837:02 CBC with auto diff Comments: PATIENT NOT FASTINGPERFORMED BY: [facility]6370 [facility] [id number] Information: [id number] (34370) Immature Grans (Abs) 0.0 {x10E3/uL} (Normal) Range: [...] 3.77-5.28 WBC 7.3 {x10E3/uL} (Normal) Range: 3.4-10.8 8-Jii-357213:46 EDWARD CULTURE-BLOOD (32489) Comments: PATIENT NOT FASTINGPERFORMED BY: LabCoMeadowlands Hospital Medical CenterCjtnfg0167 [facility] [id number] Information: SRC:BLD [id number] Result 1 NGFD (Normal) Comments: No aerobic or anaerobic growth in five days. Blood Culture, Routine Final report (Normal) 3-Vwb-598120:01 URINE EDWARD CULTURE-IDENTIFICATN Comments: PATIENT NOT FASTINGPERFORMED BY: LabCoMeadowlands Hospital Medical CenterWtjzck1740 [facility] [id number] Information: [id number] (69048) Result 1 MUG (Normal) Comments: Mixed urogenital flora2,000 Colonies/mL Urine Culture,Comprehensive Final report (Normal) 1-Cie-206834:22 Urinalysis, Office (64828) UA - LEUKOCYTE ESTERASE Negative (Normal) UA [...] Serial specimen #1, #2, #3, or #4: 1[facility] [address] [place], [address] GAP 5 (Normal) Range: 5-15 [...] Range: 70-110 22-Feb-20161:05 CBC W/Diff, Automated Comments: [facility] Ymicgotges[address] [place], [address] Absolute Lymph 1.64 {X10_3/ul} (Normal) Range: 0.83-4.51 [...] Serial specimen #1, #2, #3, or #4: 1[facility] Wispcgqtgq[address] [place], [address] CKRI 0.9 % (Normal) Range: [...] Serial specimen #1, #2, #3, or #4: 1[facility] [address]jf[address] [place], [address] TROPONIN-I < 0.02 ng/mL (Normal) Comments: TROPONIN-I EXPECTED VALUES <0.05 NEGATIVE 0.06 - 0.59 AT RISK OF PR > OR = 0.60 SUGGEST PR 06-Vfo-228690:00 Ferritin (56869) Comments: PATIENT NOT FASTINGPERFORMED BY: [employer] [facility] [id number] Ferritin, Serum 47 ng/mL (Normal) Range: 15-150 43-Nxd-373452:00 Sed Rate Erythrocyte (42142) Comments: PATIENT NOT FASTINGPERFORMED BY: [employer] Faznrf1868 [facility] [id number] Sedimentation Rate-Westergren 2 mm/h (Normal) Range: 0-32 66-Chx-972015:00 MICROALBUMIN: CREATININE RATIO Comments: PATIENT NOT FASTINGPERFORMED BY: [employer] Cgemwc2278 [facility] [id number] (29788) AND (23623) Microalb/Creat Ratio 129.6 {mg/g_creat} (Abnormal) Range: 0.0-30.0 Microalbumin, Urine 97.3 ug/mL (Abnormal) Range: 0.0-17.0 Creatinine, Urine 75.1 mg/dL (Normal) Range: 15.0-278.0 60-Ais-265481:00 TSH (62405) Comments: PATIENT NOT FASTINGPERFORMED BY: Project InsidersMeadowlands Hospital Medical CenterMvkixc2521 [facility] [id number] TSH 6.780 {uIU/mL} (Abnormal) Range: 0.450-4.500 11-Vqo-601332:00 METABOLIC PANEL, COMPREHENSIVE Comments: PATIENT NOT FASTINGPERFORMED BY: LabCoMeadowlands Hospital Medical CenterUycohk2352 [facility] [id number] (08638) ALT (SGPT) 40 [iU]/L (Abnormal) Range: 0-32 [...] Glucose, Serum 78 mg/dL (Normal) Range: 65-99 89-Fdr-375565:00 CBC with auto diff Comments: PATIENT NOT FASTINGPERFORMED BY: KEVIN LabCoMeadowlands Hospital Medical CenterSirvqu8541 [facility] [id number] Information: [id number] (97702) Immature Grans (Abs) 0.0 {x10E3/uL} (Normal) Range: [...] 3.4-10.8 :53 Serum Creatinine AND GFR Comments: [facility] Rvpgntrvzm[address] [place], [place], [address] EST GFR - AA 62 mL/min (Normal) Comments: GFR Calc EST GFR 51 mL/min (Abnormal) Comments: Non- GFR Calc CREAT,SERUM 1.21 mg/dL (Abnormal) Range: 0.55-1.20 Comments: The validity of the calculated GFR AND GFRAA in patients over70 years has not been determined. Clinical correlation isessential. :41 URINE EDWARD CULTURE-SHANAE COL Comments: PATIENT NOT FASTINGPERFORMED BY: [facility] Ojuxwd3054 [facility] [id number] Information: SRC:[facility] [id number] COUNT (92636) Result 1 MUG (Normal) Comments: Mixed urogenital flora10,000-25,000 colony forming units per mL Urine Final report (Normal) Culture,Comprehensive 98-Ybf-565372:51 COMPLEMENT, TOTAL (CH50) Comments: PATIENT NOT FASTINGPERFORMED BY: [address] [id number] Information: [id number] (31648) Complement, Total (CH50) 59 U/mL (Normal) Range: 42-62 37-Thc-131149:52 COMPLEMENT C4 (54709) Comments: PATIENT NOT FASTINGPERFORMED BY: [address] [id number] Complement C4, Serum 28 {mg/dL_Adult} (Normal) Range: 9-36 02-Xmk-134250:52 COMPLEMENT C3 (52939) Comments: PATIENT NOT FASTINGPERFORMED BY: [address] [id number] Complement C3, Serum 118 {mg/dL_Adult} (Normal) Range: 90-180 19-Iax-782395:52 CBC, Platelets & Auto Comments: PATIENT NOT FASTINGPERFORMED BY: [address] [id number] Information: [id number] Diff (07368) Immature Grans (Abs) 0.0 {x10E3/uL} (Normal) Range: [...] 3.77-5.28 WBC 8.5 {x10E3/uL} (Normal) Range: 3.4-10.8 58-Ddt-764325:52 Metabolic Panel, Comprehensive Comments: PATIENT NOT FASTINGPERFORMED BY: [facility] Jywjpr5097 [facility] [id number] (33132) ALT (SGPT) 13 [iU]/L (Normal) Range: 0-32 [...] Glucose, Serum 82 mg/dL (Normal) Range: 65-99 72-Rra-855265:28 URINE EDWARD CULTURE-IDENTIFICATN Comments: PATIENT NOT FASTINGPERFORMED BY: LabCoMeadowlands Hospital Medical CenterKjgvaz1246 [facility] [id number] (15351) Result 1 MUG (Normal) Comments: Mixed urogenital flora50,000-100,000 colony forming units per mL Urine Final report (Normal) Culture,Comprehensive 64-Vpc-934647:28 MICROALBUMIN: CREATININE Comments: PATIENT NOT FASTINGPERFORMED BY: LabCoMeadowlands Hospital Medical CenterMxptik0023 [facility] [id number] Information: [id number] RATIO (07687) AND (11878) Microalb/Creat Ratio 125.4 {mg/g_creat} (Abnormal) Range: 0.0-30.0 Microalbumin, Urine 224.4 ug/mL (Abnormal) Range: 0.0-17.0 Creatinine, Urine 179.0 mg/dL (Normal) Range: 15.0-278.0 63-Jad-074423:08 Urinalysis, Office (67013) UA - LEUKOCYTE ESTERASE Negative (Normal) UA - NITRITE Negative (Normal) URINE UROBILINGN SHANAE TIMED Normal mg/dL (Normal) UA - PROTEIN 100 mg/dL (Normal) UA - PH 6.5 (Normal) UA - BLOOD Non Hemolyzed Moderate (Normal) UA - SPECIFIC GRAVITY 1.030 (Abnormal) UA - KETONES Negative mg/dL (Normal) UA - BILIRUBIN Negative (Normal) UA - GLUCOSE Negative (Normal) 1-Ojc-144351:59 Free T3 Comments: Test performed at:[facility] Twldkcuvao3016 [place] [address] FREE T3 2.2 pg/mL (Normal) Range: 2.18-3.98 9-Xxw-621309:59 T4 Free Direct Comments: Test performed at:[facility] Siukgyxvlk0853 [place] [address] T4 FREE DIRECT 1.00 ng/dL (Normal) Range: 0.76-1.46 3-Fgy-762190:59 Thyroid Peroxidase AB Comments: Test performed at:[facility] Cfgyofbcsz9298 [facility] [address] TPO AB 6676 8 {IU/mL} (Normal) Range: 0-34 Comments: Performed at: [address] [id number] Director: West Spivey PhD, Phone: [phone] 7-Pyc-275366:59 Thyroid Stim Hormone (TSH) Comments: Test performed at:[facility] Mqzbklkdoi6665 [facility] [address] TSH 2.15 {uIU/mL} (Normal) Range: 0.358-3.74 40-Tdk-621787:51 Microscopic Examination Comments: PATIENT NOT FASTINGPERFORMED BY: [address] [id number] Bacteria Few (Normal) Mucus Threads Present (Normal) Epithelial Cells (non renal) 0-10 {/hpf} (Normal) Range: 0 - 10 RBC 0-2 {/hpf} (Normal) Range: 0 - 2 WBC 0-5 {/hpf} (Normal) Range: 0 - 5 37-Yax-819785:51 Thyroxine (T4) Free, Comments: PATIENT NOT FASTINGPERFORMED BY: [address] [id number] Information: [id number] Direct, S T4,Free(Direct) 1.02 ng/dL Range: 0.82-1.77 (Normal) 28-Feb-2015 Triiodothyronine,Free,Seru 2.3 pg/mL (Normal) Comments: PATIENT NOT FASTINGPERFORMED BY: [address] [id number] 10:51 m Range: 2.0-4.4 28-Feb-2015 Written Authorization WAR (Normal) Comments: PATIENT NOT FASTINGPERFORMED BY: [address] [id number] 10:51 Comments: Written Authorization Received.Authorization received from HILLARY RUSSELL [id number] by Mary Christensen 69-Wbn-369937:51 Creatine Kinase Total (92669) Comments: PATIENT NOT FASTINGPERFORMED BY: [facility]Saint [facility] Faxxjn2217 [facility] [place] [id number] Creatine Kinase,Total,Serum 122 U/L (Normal) Range: 24-173 23-Zuw-922641:51 CALCIFIDIOL (30974) VIT D 25 Comments: PATIENT NOT FASTINGPERFORMED BY: LabSaint [facility] Nzssxh5268 [facility] [place] [id number] Vitamin D, 25-Hydroxy 28.8 ng/mL (Abnormal) Range: 30.0-100.0 Comments: Vitamin D deficiency has been defined by the [place] of[facility] Board[facility] Hospitalcine and an Endocrine Society practice guideline as alevel of serum 25-OH vitamin D less than 20 ng/mL (1,2).The Endocrine Society went on to further define vitamin Dinsufficiency as a level between 21 and 29 ng/mL (2).1. IOM ([place] of Medicine). 2010. Dietary reference intakes for calcium and D. [place]: The National Academies Press.2. Chriss MF, Ez NC, Kilo MCCORMICK, et al. Evaluation, treatment, and prevention of vitamin D deficiency: an Endocrine Society clinical practice guideline. JCEM. 2010; 96(7):1911-30. 71-Pqe-054313:51 TSH (47212) Comments: PATIENT NOT FASTINGPERFORMED BY: LabSaint [facility] Zewgkc9510 [facility] [id number] TSH 4.840 {uIU/mL} (Abnormal) Range: 0.450-4.500 37-Unb-506247:51 URINALYSIS, W/ MICRO (64557) Comments: PATIENT NOT FASTINGPERFORMED BY: LabSaint [facility] Ujqnkf4483 [facility] [place] [id number] Microscopic Examination See below: (Normal) Comments: Microscopic was indicated and was performed. Microscopic Examination MICRON (Normal) Comments: Microscopic follows if indicated. Nitrite, Urine Negative (Normal) Urobilinogen,Semi-Qn 0.2 mg/dL (Normal) Range: 0.0-1.9 Bilirubin Negative (Normal) Occult Blood Negative (Normal) Ketones Negative (Normal) Glucose Negative (Normal) Protein Trace (Normal) WBC Esterase Negative (Normal) Appearance Clear (Normal) Urine-Color Yellow (Normal) pH 7.0 (Normal) Range: 5.0-7.5 Specific Koppel 1.018 (Normal) Range: 1.005-1.030 29-Jtf-691110:51 METABOLIC PANEL, COMPREHENSIVE Comments: PATIENT NOT FASTINGPERFORMED BY: [employer]70 [place] [facility] StorageNov[facility] [id number] (74008) ALT (SGPT) 11 [iU]/L (Normal) Range: 0-32 [...] Glucose, Serum 86 mg/dL (Normal) Range: 65-99 62-Xny-631399:51 CBC with auto diff Comments: PATIENT NOT FASTINGPERFORMED BY: [employer]70 [place] [facility] StorageNov[facility] [id number] Information: [id number] (14732) Immature Grans (Abs) 0.0 {x10E3/uL} (Normal) Range: [...] 3.77-5.28 WBC 4.7 {x10E3/uL} (Normal) Range: 3.4-10.8 01-Skx-461035:46 Metabolic Panel, Basic Comments: PATIENT NOT FASTINGPERFORMED BY: [facility] Fnbvqe8375 [facility] [id number] Information: [id number] (53935) Calcium, Serum 9.2 mg/dL (Normal) Range: 8.7-10.2 [...] Glucose, Serum 79 mg/dL (Normal) Range: 65-99 71-Yln-211834:08 CPK 85 U/L (Normal) Range: 26-192 82-Ndo-602627:02 CPKISO tCKBB 0 % (Normal) Comments: Performed at: [facility] [id number] Director: Emmanuel Cary MD, Phone: [phone] tCKMACI 0 % (Normal) tCKMB 0 % (Normal) Range: 0-3 tCKMM 100 % (Normal) Range: 97-100 tCKMACII 0 % (Normal) tCPK 81 U/L (Normal) Range: 24-173 :02 MYOS 52 ng/mL (Normal) Range: 25-58 Comments: Performed at: [facility] [id number] Director: Emmanuel Cary MD, Phone: [phone] :24 BMP CO2 27.0 mmol/L (Normal) Range: [...] 37.1 mg/L (Normal) CREU 191.6 mg/dL (Normal) 30-Nir-636580:42 CPK 3766 U/L (Abnormal) Range: 26-192 :42 CPKISO tCPK 4094 Comments: TEST RESULT LIMITSCK, Total+Isoenzymes, SerumCreatine Kinase,Total,Serum 4094 U/L H 24 - 173CK Isoenzymes:Macro Type 2 0 % Not Observe (Normal) dCK-MM 100 % 97 - 100Macro Type 1 0 % Not ObservedCK-MB 0 % 0 - 3CK-BB 0 % 0 TESTING PERFORMED AT [facility]. ORIGINAL REPORT ONFILE IN LAB CONTAINS ADDITIONAL TEST SITE INFORMATION. 1 MYOS 1188 Range: 25-58 7 ng/mL Comments: Performed at: [address] [id number] Director: Emmanuel Cary MD, Phone: [phone] - (Abnormal D ) e c - 2 0 1 3 1 6 : 4 2 45-Jqz-850281:52 MRSAD tMRSA Negative (Normal) SOURCE: NASAL SWAB (Normal) 63-Zfg-889314:09 CUV VAC See Note (Normal) Comments: No [...] Comments: NegativeNo Herpes simplex virus isolated.Performed at: [address] [id number] Director: Gee Lord PhD, Phone: [phone] :18 CDIF See Note (Normal) Comments: A [...] ng/mL 25 - 58 TESTING PERFORMED AT [facility]. [facility] T ONFILE IN LAB CONTAINS ADDITIONAL TEST SITE INFORMATION. :41 MISC2 (Normal) Comments: TEST RESULT LIMITSCarnitine, Total and FreeCarnitine, Total 56 umol/L 25 - 69Carnitine, Free 38 umol/L 16 - 60Esterified/Free 0 .5 Ratio 0.1 - 0.9Esterified/Free Ratio is a calculated value equal to TotalCarnitine minus Free Carnitine divided by the FreeCarnitine. _TESTING PERFORMED AT [facility]. ORIGINAL REPORT ONFILE IN LAB CONTAINS ADDITIONAL TEST SITE INFORMATION. :41 ZI 77 ug/dL (Normal) Range: 56-134 Comments: Detection Limit = 5Performed at: [facility] [employer] [id number] Director: Gee Lord PhD, Phone: [phone] at: [facility] [facility] [place], [place] [id number] Director: Ketan Lopez MD, Phone: [phone] 18-Jun-20138:52 Urinalysis, Office (54352) UA - BILIRUBIN Negative (Normal) UA - BLOOD Negative (Normal) UA - GLUCOSE Negative (Normal) UA - KETONES Negative mg/dL (Normal) UA - LEUKOCYTE ESTERASE Negative (Normal) UA - NITRITE Negative (Normal) UA - PH 7.0 (Normal) UA - PROTEIN Trace mg/dL (Normal) UA - SPECIFIC GRAVITY 1.025 (Normal) Comments: 1.030 URINE UROBILINGN SHANAE TIMED Normal mg/dL (Normal) 7-Coc-331186:13 Pathology Report Comments: PERFORMED BY: [facility] Boja[address] [facility] [id number] BY: [facility] [place] Dujuhrkir447 [facility] [id number] Information: [id number] See MATER Comments: Material submitted: .VULVA BXClinical [...] INRARE MOSTLY INDIVIDUAL SCATTERED LYMPHOCYTES. NO SIGNIFICANT [id number] IS APPRECIATED. BOTH CD10 AND BCL-6 STAININDIVIDUAL [...] SUBMITTED IN TOTO IN A SINGLE CASSETTE.XJW/BXSCPT .095471, 492444, Q87963, Y80995, C08091, E17890, P8 3425, G75135, J32020,J58665, G63685, P29907, F89402, 099515, 009000 1 HS12G Comments: The specimen submitted does not meet the laboratory'scriteria for acceptability. Refer to [facility]'s Directory ofServices for specimen acceptability criteria.RECEIVED: VIRAL TRANSPORTREQUIRES: SERUMCONTA 1 (Normal) CTED LAURA APPLE AT YOUR FACILITY 1-04-01DWDMLBJ: PERFORM [id number] HSV CULTURE WITH TYPINGNegative <0.9Equivocal 0.9 - 1.0Positive >1.0.Note: Negative indicates no antibodies detected - toeither HSV-1 or HSV-2. Equivocal may suggest earlyinfection. If clinically appropriate, retest at alater date. Positive indicates antibodies detectedto HSV-1 and/or HSV-2. M a r - 2 0 1 3 1 2 : 1 7 31-Pgl-638577:23 CBCD ANC 4.1 3/uL (Normal) Range: 2.0-7.7 [...] 4.2-5.4 WBC 5.8 K/mm3 (Normal) Range: 4.4-11.0 64-Rtv-809594:23 CKMB CPKMB 1.3 ng/mL (Normal) Range: 0.0-5.0 Comments: CK-MB and RI Interpretation MB Relative Index Non-AMI <or= 5 NA Indeterminate > 5 <or= 4 AMI > 5 > 4 CPK 123 U/L (Normal) Range: 26-192 16-Zyw-581241:23 CMP GAP 9 (Normal) Range: 5-15 CO2 [...] 7-18 GLU 89 mg/dL (Normal) Range: 70-110 30-Ndn-382792:23 TROP < 0.02 ng/mL (Normal) Comments: TROPONIN-I EXPECTED VALUES <0.05 NEGATIVE 0.06 - 0.59 AT RISK OF PR > OR = 0.60 SUGGEST PR 9-Oct-78349:00 BRAIN W/WO CONTRAST Radiology Report See Note [...] Lutz M.D.August 25, 2012 at 2:18:09 PM [id number] Signed DN/DN If you are the referring physician and would like to consult with theradiologist who provided th is interpretation, please contact Lorena Velazquez M.D. at [phone]. If this radiologist is unavailable, youwillbe directed to another radiologist to assist. If you are a patient with a question rega rding this report, pleasecontactyour referring physician directly. Professional Interpretation Provided By: [employer] Phone , These documents contain legally protected [...] ofconfusion and difficulty finding words. TECHNIQUE: 3-D qwum-nw-llznhb (TOF) imaging was performed with MIPs.Thestudy was [...] of the anterior cerebral artery. Normal left F2rryztkex of the anterior cerebral artery. Normal intact anteriorc ommunicating artery (ACOM). Normal visualized proximal bilateral N7avqbeelp of the anterior cerebral arteries. Normal right [...] is no demonstra mara aneurysm of the [place] of [place], within thetechnical limitations of this modality. No demonstrated hemodynamicallysignificant stenosis or major branch occlusion. IMPRESSION:No significant abnormal ity of visualized intracranial vasculature. Signed:Lorena Lutz M.D.August 25, 2012 at 2:24:09 PM [id number] Signed DN/DN If you are the referring physician and would like to cons ult with theradiologist who provided this interpretation, please contact Lorena Velazquez M.D. at [phone]. If this radiologist is unavailable, youwillbe directed to another radiologist to assist. If you are a patient with a question regarding this report, pleasecontactyour referring physician directly. Professional Interpretation Provided By: [employer] Phone , Thes e documents contain legally [...] on 08/25/121755 Sign by: LORENA LUTZ MD 7-Iqo-542021:19 ANCA tATYPANCA <1:20 {titer} Comments: The atypical pANCA pattern has been observed in asignificant percentage of patients with ulcerative colitis,primary sclerosing cholangitis and autoimmune hepatitis.Performed at: [facility] (Normal) [place], [place] [id number] Director: Katelin Swift MD, Phone: [phone] tANCAP <1:20 {titer} Comments: The presence of positive fluorescence exhibiting P-ANCA orC-ANCA patterns alone is not specific for the diagnosis ofWegener's Granulomatosis (WG) or microscopic polyangiitis.Decisions about treatment sh (Normal) ould not be based solely onANCA IFA results. The International ANCA Group Consensusrecommends follow up testing of positive sera with both IN-3 and MPO-ANCA enzyme immunoassays. As many as 5% serumsamp les are positive only by EIA. Ref. AM J Clin Cgrmed4155;111:507-513. tANCAC <1:20 {titer} (Normal) 76-Xab-237508:3 MISC . (Normal) Comments: TEST RESULT LIMITSANCA PanelAntimyeloperoxidase (MPO) Abs < 9.0 U/mL 0.0 - 9.0Antiproteinase 3 (IN-3) Abs < 3.5 U/mL 0.0 - 3.5Cytoplasmic [...] up testing of positive sera with both IN-3and MPO-ANCA enzyme immunoassays. As many as 5% serumsamples are positive only by EIA.Ref. AM J Clin Pathol 1999;111:507-513.Atypical pANCA < 1:20 titer Neg:<1:20The atypical pANCA pattern has been observed in asignificant percentage of patients with ulcerative colitis,primary sclerosing cholangitis and autoimmune hepatitis. TESTING PERFORMED AT [facility]. ORIGINAL REPORT ON FILE IN LAB CONTAINS ADDITIONAL TEST SITE INFORMATION. 60-Kib-474526:52 BILAT SCRN DIGITAL & CAD Radiology Report [...] Signed:Oni Leone M.D.June 30 at 4:03:08 PM [id number] Signed GP/GP If you are the referring physician and would like to consult with theradiologist who provided this interpretation, please contact Jeremie moreira M.D. at [phone]. If this radiologist is unavailable, youwill be directed to another radiologist to assist. If you are a patient with a question regarding this report, pleasecontactyour refer ring physician directly. Professional Interpretation Provided By: [employer] Phone , These documents contain legally protected [...] Comments: INFCE Result Units: mg/dL AdultPerformed at: [facility] [id number] Director: Katelin Swift MD, Phone: [phone] 27-May-2012 C4 24 (Normal) Range: 9-36 11:56 Comments: INFCE Result Units: mg/dL Adult 57-Uff-371541:56 CBCD ANC 3.4 3/uL (Normal) Range: 2.0-7.7 [...] 4.2-5.4 WBC 4.4 K/mm3 (Normal) Range: 4.4-11.0 25-Ifo-091779:56 CMP Comments: Interface Comments: VERIFIED DX 03/24/12 AST Order Date: 03/24/12Diagnosis: 782.3 - SYMPTOMS INVOLVING SKIN AND OTHER INTEGUMENTARY TISSUE, EDEMA (782.3)OV Order #: [id number] ID: [id number] ORDERED BMP HAS A COPY TO GO [...] OTHER INTEGUMENTARY TISSUE, EDEMA (782.3)OV Order #: [id number] ID: [id number] ORDERED BMPDR.FLOYD HAS A COPY TO GO TO Range: 1.8-2.4 :56 PHOS 2.9 mg/dL (Normal) Comments: Interface Comments: VERIFIED DX 03/24/12 AST Order Date: 03/24/12Diagnosis: 782.3 - SYMPTOMS INVOLVING SKIN AND OTHER INTEGUMENTARY TISSUE, EDEMA (782.3)OV Order #: [id number] ID: [id number].BONEZZI ORDERED BMPDR.EVERETT HAS A COPY TO GO TO Range: 2.5-4.9 22-Bij-318363:56 PROCRER tPROCRER 207 {mg/g_CRE} (Abnormal) Range: 0-200 PROUR 20.5 mg/dL (Abnormal) CREU 98.9 mg/dL (Normal) :56 PTHIN 63 pg/mL (Normal) Range: 14-72 :56 VITD 43.5 ng/mL (Normal) Range: 30.0-100.0 Comments: Vitamin D deficiency has been defined by the [place] [employer] and an Endocrine Society practice guideline as alevel of serum 25-OH vitamin D less than 20 ng/mL (1,2).The Endocrine Society went on to further define vitamin Dinsufficiency as a level between 21 and 29 ng/mL (2).1. IOM ([place] [employer]). 2010. Dietary reference intakes for calcium and D. [place]: The National Academies Press.2. Chriss MF, Ez MUSE, Kilo MCCORMICK, et al. Evaluation, treatment, and prevention of vitamin D deficiency: an Endocrine Society clinical practice guideline. JCEM. 2010; 96(7):1911-30. 0-Blh-755858:23 CMP Comments: STATRESULTS FAXED TO DR RUSSELL [...] DR RUSSELL 03/24/12 VÍCTOR AZUL. Range: 26-192 55-Ugr-694619:53 ABDOMEN/PELVIS WITHOUT CONT Radiology Report See Note [...] with mild facet and ligamento us hypertrophy dzheP1ax S1 with mild foraminal and spinal stenosis. [...] EDTElectronically Signed PF/PF Professional Interpretation Provided By: [facility] [place], , To consult with a radiologist regarding thi s report, please call our [id number] line @ Dictated on 03/13/12 1559 by Nicholas William MDTranscribed on 03/13/121652 by ITS IMPORTSign by Nicholas William MD on 03/13/121652 Sign by: Nicholas William MD 89-Uzc-761104:30 Urinalysis, Office (81327) UA - BILIRUBIN Negative (Normal) UA - [...] 4.2-5.4 WBC 8.9 K/mm3 (Normal) Range: 4.4-11.0 42-Ink-684506:27 COMP METABOLIC Comments: MG ADDED 01/01/12 GAP [...] 4.2-5.4 WBC 7.1 K/mm3 (Normal) Range: 4.4-11.0 89-Twc-099691:10 COMP METABOLIC GAP 4 (Abnormal) Range: 5-15 [...] 7-18 GLU 78 mg/dL (Normal) Range: 70-110 77-Hoe-440770:10 MITOCHN AB 6650 <20.0 {Units} (Normal) Comments: appt 12-31-11 Range: 0.0-20.0 Comments: Negative 0.0 - 20.0 Equivocal 20.1 - 24.9 Positive >24.9 . Mitochondrial (M2) Antibodies are found in 90-96% of patients with primary biliary cirrhosis.Performed at: [facility] [id number] Director: Katelin Swift MD, Phone: [phone] 31-Ucl-178721:14 Urinalysis, Office (30346) UA - NITRITE Negative (Normal) URINE UROBILINGN [...] 27.0Roche ECLIA methodologyPerformed at: [facility] [address] [id number] Director: Katelin Swift MD, Phone: [phone] FSH 4309 4.3 m[iU]/mL Comments: Follicular phase [...] {IU/mL} (Normal) Range: 0-34 Comments: Performed at: [address] [id number] Director: Katelin Swift MD, Phone: [phone] :52 TSH 4.07 {uIU/mL} (Abnormal) Range: 0.358-3.74 :52 VIT D,25 07622 42.7 ng/mL (Normal) Comments: appt 09/10/11 Range: [...] 7-18 GLU 69 mg/dL (Abnormal) Range: 70-110 23-Zir-594748:11 CPK TOTAL 82 U/L (Normal) Range: 26-192 Comments: Please note: Revised Creatinine Kinase (CK) Reference ramge effective 11/15/10. 0-Pge-028179:07 BMP Comments: Please Note: TROPONIN REFERENCE RANGE [...] D-Dimer level indicates no DVT or PE. 1-Ypu-052629:07 TROPONIN-I < 0.02 ng/mL (Normal) Comments: Please Note: TROPONIN REFERENCE RANGE CHANGEEffective OCTOBER 17, 2009. Comments: TROPONIN-I EXPECTED VALUES <0.05 NEGATIVE 0.06 - 0.59 AT RISK OF PR > OR = 0.60 SUGGEST PR :00 CHEST, PA AND LATERAL Radiology Report [...] by Lupillo Rao on 12/20/102006 Sign by: Luplilo Rao 21-Knx-96188:48 UPPER GI SERIES ONLY Radiology Report See [...] 10/05/1018 Sign by: Oni Leone 27-Sep-2010 H.PYLORI [id number] < 0.9 U/mL Range: 0.0-0.8 8:09 (Normal) Comments: Negative <0.9 Indeterminate 0.9 - 1.0 Positive >1.0Performed at: [address] [id number] Director: Katelin Swift MD, Phone: [phone] Plan of Care Name Dates Details Instructions [...] with (acute) exacerbation Planned Observations LIPID PANEL (34596)Indication: Hypercholesteremia On: 49-Zvr-681829:23 Request MICROALBUMIN 24 HOUR OR RANDOM (83390)Indication: Chronic kidney disease, stage III (moderate) On: 11-Ekv-926025:19 Request Comments: 24 hour urine for protein T3, FREE (TRIDOTHYRONINE) (35813)Indication: Hypothyroidism (acquired) On: :19 Request T4, FREE (THYROXINE) (35150)Indication: Hypothyroidism (acquired) On: :19 Request TSH (82768)Indication: Hypothyroidism (acquired) On: :17 Request Comments: do this tsh in mid to late december MICROALBUMIN 24 HOUR OR RANDOM (53917)Indication: IgA nephropathy, chronic On: :14 Request Comments: need 24 hour urine for total protein Urine Protein Electrophoresis (UPEP) (34533)Indication: Chronic kidney disease, stage III (moderate) On: 21-Yop-027733:11 Request T3, FREE (TRIDOTHYRONINE) (65618)Indication: Abnormal TSH On: 97-Aoa-810015: Request T4, FREE (THYROXINE) (54721)Indication: Abnormal TSH On: 90-Dnh-983329: Request TSH (87390)Indication: Abnormal TSH On: 43-Azw-679183: Request Anti-TPO Antibody (79277)Indication: Abnormal TSH On: 56-Nnu-325192: Request CREATININE BLOOD (72091)Indication: MRI of brain abnormal On: 79-Bsd-38974:59 Request Anti-TPO Antibody (93183)Indication: Hypothyroidism (acquired) On: :49 Request T4, FREE (THYROXINE) (10091)Indication: Hypothyroidism (acquired) On: :49 Request T3, FREE (TRIDOTHYRONINE) (82945)Indication: Hypothyroidism (acquired) On: :49 Request TSH (68856)Indication: Hypothyroidism (acquired) On: :49 Request URINALYSIS, W/ MICRO (01334)Indication: Hypertensive kidney disease On: :49 Request MICROALBUMIN: CREATININE RATIO (87272) AND (86427)Indication: Hypertensive kidney disease On: :49 Request METABOLIC PANEL, COMPREHENSIVE (62833)Indication: Hypertensive kidney disease On: 2-Hle-521564:49 Request CBC W/AUTO DIFF WBC (57620)Indication: Hypertensive kidney disease On: 7-Tta-623020:49 Request LIPID PANEL (00603)Indication: Hypertensive kidney disease On: 3-Qau-429358:49 Request MYCOPLAMA PNEUM AB IgG/IgM 191002 (44470)Indication: Cough On: 75-Bmr-557832:41 Request TSH (85025)Indication: Hypothyroidism (acquired) On: 18-Xcy-292728:57 Request CALCIFIDIOL (01533) VIT D 25Indication: CKD (chronic kidney disease) On: :34 Request TSH (86083)Indication: Hypothyroidism (acquired) On: :34 Request METABOLIC PANEL, COMPREHENSIVE (72679)Indication: CKD (chronic kidney disease) On: :34 Request CBC with auto diff (89980)Indication: CKD (chronic kidney disease) On: :34 Request T3, FREE (TRIDOTHYRONINE) (73392)Indication: Hypothyroidism (acquired) On: 93-Mhb-657372:40 Request T4, FREE (THYROXINE) (58676)Indication: Hypothyroidism (acquired) On: :40 Request TSH (41218)Indication: Hypothyroidism (acquired) On: 10-Zqx-517805:40 Request Anti-TPO Antibody (34524)Indication: Hypothyroidism (acquired) On: :40 Request T3 UPTAKE (28453)Indication: Abnormal TSH On: :52 Request T4, TOTAL (00132)Indication: Abnormal TSH On: 47-Xzb-371139:52 Request T4, FREE (THYROXINE) (68720)Indication: Abnormal TSH On: :52 Request TSH (27599)Indication: Abnormal TSH On: 51-Iub-823464:51 Request T4, FREE (THYROXINE) (09363)Indication: Abnormal TSH On: 58-Keb-108547:25 Request T3, FREE (TRIDOTHYRONINE) (04938)Indication: Abnormal TSH On: 86-Dva-549700:24 Request MYOGLOBIN (73619)Indication: Rhabdomyolysis (Renamed from Disease characterized by destruction of skeletal muscle) On: 49-Brv-213981:33 Request CPK TOTAL & ISOENZYMES (60729)Indication: Rhabdomyolysis (Renamed from Disease characterized by destruction of skeletal muscle) On: 30-Rkc-817926:32 Request FECAL OCCULT HGB ASSAY- tubes sent home (13924)Indication: Well woman exam with routine gynecological exam On: 97-Mlf-156916:12 Request OCCULT BLOOD FECES SCREEN- card done in office (48245)Indication: Well woman exam with routine gynecological exam On: 17-Gwf-257174:12 Request Thin prep Pap (75331)Indication: Well woman exam with routine gynecological exam On: 64-Hix-900276:12 Request MICROALBUMIN: CREATININE RATIO (98863) AND (52770)Indication: CKD (chronic kidney disease) On: 7-Eqm-258023:02 Request Metabolic Panel, Basic (42032)Indication: Rhabdomyolysis (Renamed from Disease characterized by destruction of skeletal muscle) On: 7-Lwl-667596:53 Request MYOGLOBIN (72854)Indication: Rhabdomyolysis (Renamed from Disease characterized by destruction of skeletal muscle) On: 57-Jqg-289236:04 Request CPK TOTAL & ISOENZYMES (80115)Indication: Rhabdomyolysis (Renamed from Disease characterized by destruction of skeletal muscle) On: 77-Yoe-242169:04 Request MRSA Culture (55287)Indication: Decubitus ulcer of coccyx On: 97-Twn-871489:40 Request HSV CULTURE SCREEN 118686 (40038)Indication: Genital ulcer, female On: 44-Ebz-52736:55 Request Culture, Aerobic, Bacterial ID ([id number])Indication: Decubitus ulcer of coccyx On: 57-Pqx-70047:39 Request NuSwab STD (STD W/ Herpes) (27142)Indication: Genital ulcer, female On: :36 Request Comments: intra vaginal area and lesion CULTURE, VAG/CX COMPREHENSIVE (29382)Indication: Genital ulcer, female On: 07-Jvv-23236:44 Request CALCIUM SERUM (23851)Indication: Hypocalcemia On: 0-Mfs-270045:21 Request LACTATE (LACTIC ACID) (46138)Indication: Muscle pain On: :18 Request Comments: stat ZINC, BLOOD (42665)Indication: Muscle pain On: :17 Request Comments: stat MAGNESIUM (37098)Indication: Muscle pain On: :17 Request Comments: stat Metabolic Panel, Comprehensive (68488)Indication: Muscle pain On: :17 Request Comments: stat MYOGLOBIN (82551)Indication: Muscle pain On: :17 Request Comments: stat CPK TOTAL & ISOENZYMES (13248)Indication: Muscle pain On: :17 Request Comments: stat ASSAY, CARNITINE, SHANAE, EACH SPEC (59295)Indication: Muscle pain On: :14 Request OVA & PARASITE DIR SMEAR (05863)Indication: DIARRHEA On: : Request OCCULT BLOOD FECES SCREEN (93379)Indication: DIARRHEA On: : Request LEUKOCYTE COUNT, FECAL (17625)Indication: DIARRHEA On: : Request C-DIFFICILE, STOOL (01938)Indication: DIARRHEA On: : Request EDWARD CULTURE-STOOL (77366)Indication: DIARRHEA On: :06 Request Lyme Disease,Serum, Western Blot (90799)Indication: Neck pain on right side On: 43-Eke-342281:07 Request Lyme Disease Antibody W/ Reflex (34747)Indication: Neck pain on right side On: 54-Hjk-178914:07 Request Herpes Simplex II Ag, Direct Fluorescent Ab (94839)Indication: Uncomplicated herpes simplex On: 28-Hyo-770314:05 Request Herpes Simplex I Ag, Direct Fluorescent Ab (45838)Indication: Uncomplicated herpes simplex On: 17-Ldk-223675:05 Request CBC with manual diff (98921)Indication: Essential hypertension On: 52-Fue-538910:57 Request Metabolic Panel, Comprehensive (26866)Indication: Essential hypertension On: 82-Jrz-981151:15 Request Troponin I (40495)Indication: Chest pain On: 02-Upz-183729:14 Request Comments: stat CPK MB FRACTION (07823)Indication: Chest pain On: 02-Crd-585633:14 Request Comments: stat CREATINE KINASE TOTAL (39956)Indication: Chest pain On: 95-Upg-670984:14 Request Comments: stat ANCA-P (ANTI NEUTROPHIL CYTOPLASMIC ANTIBODY)Indication: Memory loss On: :01 Request ANCA-C (ANTI NEUTROPHIL CYTOPLASMIC ANTIBODY)Indication: Memory loss On: :01 Request Metabolic Panel, Basic (52473)Indication: Edema, unspecified On: :01 Request Creatine Kinase Total (94666)Indication: Rhabdomyolysis (Renamed from Disease characterized by destruction of skeletal muscle) On: :27 Request Metabolic Panel, Comprehensive (44107)Indication: Rhabdomyolysis (Renamed from Disease characterized by destruction of skeletal muscle) On: :26 Request Metabolic Panel, Comprehensive (43723)Indication: Pruritic disorder On: :01 Request Potassium Serum (67188)Indication: Hypokalemia On: :47 Request Comments: STAT Calcium Serum (16230)Indication: Hypokalemia On: :47 Request Comments: STAT MAGNESIUM (24567)Indication: Hypokalemia On: 73-Ouo-37083:52 Request CBC with manual diff (75600)Indication: Fatigue On: 58-Iwk-315398:42 Request Metabolic Panel, Comprehensive (88159)Indication: Hypokalemia On: 37-End-254907:41 Request ANTIMITOCHONDRIAL ANTIBODY (50016)Indication: Pruritic disorder On: :52 Request METABOLIC PANEL, COMPREHENSIVE (38517)Indication: Pruritic disorder On: :47 Request CBC WITH MANUAL DIFF (83522)Indication: Pruritic disorder On: :47 Request CREATININE CLEARANCE (12655)Indication: Chronic kidney disease, stage III (moderate) On: :48 Request 24 hour urine for Protein (20593)Indication: Chronic kidney disease, stage III (moderate) On: :48 Request Metabolic Panel, Basic (43174)Indication: Chronic kidney disease, stage III (moderate) On: 87-Lza-660176:36 Request MICROALBUMIN: CREATININE RATIO (15008) AND (78596)Indication: Chronic kidney disease, stage III (moderate) On: 09-Ymz-446245:33 Request ESTRADIOL (89384)Indication: Fatigue On: 48-Jhx-338092:58 Request TSH (THYROID STIMULATING HORMONE) (98359)Indication: Abnormal TSH On: 83-Zov-886894:19 Request Comments: check in 8 weeks TSH (46817)Indication: Abnormal TSH On: :48 Request Anti-TPO Antibody (25963)Indication: Abnormal TSH On: :48 Request DNA ANTIBODY-NATV/DBL ST (90040) test code 113927Kwaugjmhtf: Fatigue On: :47 Request Vitamin D Hydroxy (81293)Indication: Fatigue On: Request VITAMIN B-12 (CYANOCOBALAMIN) (01902)Indication: Fatigue On: 47 Request URINALYSIS, W/ MICRO (99595)Indication: Fatigue On: :47 Request METABOLIC PANEL, COMPREHENSIVE (90686)Indication: Fatigue On: 47 Request CBC WITH MANUAL DIFF (84206)Indication: Fatigue On: :47 Request MONIQUE (ANTINUCLEAR ANTIBODY) (51715)Indication: Fatigue On: :47 Request C-REACTIVE PROTEIN (41518)Indication: Fatigue On: :46 Request SED RATE ERYTHROCYTE (12396)Indication: Fatigue On: :46 Request T4, FREE (THYROXINE) (61216)Indication: Abnormal TSH On: :30 Request T3, FREE (TRIDOTHYRONINE) (68553)Indication: Abnormal TSH On: :30 Request TSH (70580)Indication: Abnormal TSH On: :30 Request Potassium Serum (36093)Indication: Hypokalemia On: :20 Request Metabolic Panel, Comprehensive (45344)Indication: Rhabdomyolysis (Renamed from Disease characterized by destruction of skeletal muscle) On: :19 Request Creatine Kinase Total (65353)Indication: Rhabdomyolysis (Renamed from Disease characterized by destruction of skeletal muscle) On: :19 Request D-Dimer (73493)Indication: Chest pain On: :28 Request CBC (Auto) (02545)Indication: Chest pain On: :28 Request Metabolic Panel, Basic (74385)Indication: Chest pain On: :28 Request CARDIAC ISOENZYMES (22294)Indication: Chest pain On: :28 Request HELICOBACTER PYLORI ANTIBODY (42430)Indication: Abdominal pain, acute, generalized On: :55 Request Planned Procedures Spirometry (58334)By: Gerry STRANGE, On: 10-Jun-2018 Intent Rosalinda Paris DO Comments: normal ELECTROCARDIOGRAM, COMPLETE (ECG) On: 10-Jun-2018 Intent (76520)By: Rosalinda Garrett DO Comments: nsr no acute chg Rosalinda Garrett DO Radiology - Chest- PA and LatBy: On: 30-Oct-2017 Intent Rosalinda Garrett DO, DO, Kathleen Breast Ultrasound - LeftBy: Gerry On: 02-Oct-2017 Intent Rosalinda STRANGE DO, Rosalinda Spot Compression - LeftBy: Gerry On: 02-Oct-2017 Intent DO, Rosalinda Gerry DO, Rosalinda Spot Compression - RightBy: Gerry On: 02-Oct-2017 Intent Rosalinda STRANGE DO, Kathleen Comments: if needed Breast Ultrasound - RightBy: On: 02-Oct-2017 Intent Rosalinda Garrett DO, DO, Comments: if needed Rosalinda SCREENING DIGITAL TOMOSYNTHESIS OF On: 02-Oct-2017 Intent BREAST (33467)By: Rosalinda Garrett DO, DO, Kathleen ATTENDED SLEEP STUDY (89047)By: On: 20-Jun-2017 Intent Amy Gonzalez CNP E SCREENING DIGITAL TOMOSYNTHESIS OF On: 11-Apr-2017 Intent BREAST (39597)By: Rosalinda Garrett DO, DO, Kathleen MRA OF BRAIN (25281)By: Gerry STRANGE, On: 19-Mar-2017 Intent Rosalinda Paris DO MRI BRAIN W/ CONTRAST (94386)By: On: 19-Mar-2017 Intent Rosalinda Garrett DO, DO, Kathleen ELECTROCARDIOGRAM, COMPLETE (ECG) On: 19-Mar-2017 Intent (06855)By: Rosalinda Garrett DO Comments: nsr no acute chg Rosalinda Garrett DO Spirometry (17995)By: Gerry STRANGE, On: 19-Mar-2017 Intent Rosalinda Paris DO Comments: see scanned report Ultrasound - PelvisBy: Gerry STRANGE, On: 20-Feb-2017 Intent Rosalinda Paris DO Spirometry (95251)By: Gerry STRANGE, On: 05-Dec-2016 Intent Rosalinda Paris DO Comments: normal Aerosol Treatment (40804)By: On: 05-Dec-2016 Rosalinda Gaxiola DO, DO, Comments: Albuterol 0.83% given via nebulizer machine. Pt tolerated well.less noise and more a/e Rosalinda Solu- Medrol Injection, 125mg On: 05-Dec-2016 Intent (J2930)By: Rosalinda Garrett DO Comments: 2 ml given im rt glut lot [id number] exp 05/05 Rosalinda Garrett DO Radiology - Cervical SpineBy: On: 26-Mar-2016 Intent Hillary Russell MD Phenergan Injection, up to 50 mg On: 26-Mar-2016 Intent ([id number])By: Hillary Russell MD Toradol Injection, 30 mg On: 26-Mar-2016 Intent ([id number])By: Hillary Russell MD Kenalog Injection, 10 mgm On: 12-Feb-2016 Intent ([id number])By: Hillary Russell MD NEUROPSYCHOLOGICAL TESTING On: 29-Nov-2015 Intent ([id number])By: Hillary Russell MD MRI - Brain (IV Contrast On: 31-Oct-2015 Intent Needed)By: Hillary Russell MD Ultrasound - RenalBy: Lisa CONDE, On: 05-Sep-2015 Intent Amy Joseph Eprescribed prescriptions On: 31-Mar-2014 Intent ([id number])By: Amy Gonzalez CNP MAMMOGRAM, SCREENING, BOTH BREASTS On: 03-Feb-2014 Intent ([id number])By: Hillary Russell MD Radiology - ChestBy: María MARTÍNEZ, On: 01-Feb-2014 Intent Hillary Peng Aerosol Treatment ([id number])By: Lisa On: 25-Jan-2014 Intent Amy CONDE Ultrasound - Abdomen Complete & On: 24-Nov-2013 Intent PelvisBy: Amy Gonzalez CNP Eprescribed prescriptions On: 17-Aug-2013 Intent ([id number])By: Long LINE WELDER, Marisela L INFUSION, NORMAL SALINE SOLUTION , On: 18-Jun-2013 Intent 1000 CC (Special Coverage Comments: Normal Saline, Lot #[id number], exp. 10/01 1 ltr infused in L AC without difficulty, Instructions Apply. See MCM: 2048) ([id number])By: Amy Gonzalez CNP HYDRATION IV INFUSION, INIT On: 18-Jun-2013 Intent ([id number])By: Amy Gonzalez CNP Comments: IV initiated in: R ACwith 22 gaugenumber of attempts: x1 attempt without difficultyTolerated well: MAMTA Elizabeth Eprescribed prescriptions On: 16-Mar-2013 Intent ([id number])By: Adolfo GILBERTN Marisela L Eprescribed prescriptions On: 25-Jan-2013 Intent ([id number])By: Adolfo GILBERTN, Marisela L Eprescribed prescriptions On: 15-Jan-2013 Intent ([id number])By: Cy Mata LPNn L Toradol Injection, 30 mg On: 24-Nov-2012 Intent ([id number])By: Hillary Russell MD Comments: Lot #[id number]-right hipDose- 30mlgiven by: Didier Farrar LPN Eprescribed prescriptions On: 24-Nov-2012 Intent (G8553)By: Cy Mata LPNn L EKG ([id number])By: Isac OLEARY, On: 09-Sep-2012 Intent Saida Comments: sinus rhythm no changes compared to 03-24 Pulse Oximetry ([id number])By: Isac On: 09-Sep-2012 Intent Saida OLEARY Comments: 99% on room air MRA - brainBy: Hillary Russell MD On: 14-Aug-2012 Intent MRI - Brain (IV Contrast On: 14-Aug-2012 Intent Needed)By: Hillary Russell MD Eprescribed prescriptions On: 14-Aug-2012 Intent ([id number])By: Liberty Choi LPN TDAP VACCINE >7 IM ([id number])By: On: 25-Jun-2012 Intent Hillary Russell MD Comments: Lot #[id number]-left deltoidgiven by: Didier Farrar LPN MAMMOGRAM, SCREENING, BOTH BREASTS On: 25-Jun-2012 Intent ([id number])By: Hillary Russell MD EKG ([id number])By: Hillary Russell MD On: 24-Mar-2012 Intent Comments: see scanned document of test done to see results reviewed today with patient Pulse Oximetry ([id number])By: Lupillo, On: 24-Mar-[address] - Abdomen & Pelvis Stone On: 13-Mar-2012 Intent ProtocolBy: Amy Gonzalez CNP Nerve ConductionBy: Isac OLEARY, On: 06-Jan-2012 Intent Saida EMGBy: Saida Chau LPN On: 06-Jan-2012 Intent Solu -Medrol Injection, 125 mg On: 03-Jan-2012 Intent ([id number])By: Saida Chau LPN Comments: Lot #[id number]-right hipDose- 125 mggiven by: Didier Farrar LPN Radiology - ChestBy: María MARTÍNEZ, On: 20-Dec-2010 Intent Hillary Peng Pulse Oximetry ([id number])By: Lupillo, On: 20-Dec-2010 Intent JAMAR EKG ([id number])By: JAMAR Wesley On: 20-Dec-2010 Intent UGI (With [...] Hypokalemia : DISCONTINUED - METABOLIC PANEL, BASIC (06321) Indication: Hypokalemia BMI 25.0-25.9,adult : How to [...] be. Was recently i n sun at [place]. Has underlying autoimmune followed by Dr. Newsome [...] WWV V73.21 [facility] [employer] [facility] [place] [facility] [place] [employer]; a guarantor
--- OUTSIDE RECORDS SUMMARY | 2018-12-12 19:08 | XMS RPT_ITS | Continuity of Care Document ---
:1970 Author Organization [facility] Address [address] [facility] [address] [place] [address] Phone Care Team Providers Name Role Phone [...] neg, myophosphorylase and myoadenylate de aminase at [facility], mitochondrial screening neg, [facility] rhabo/myopathy neg Status: Active Rheumatoid [...] Quantity: 90 {Tablet} Refills: 3 Ordered:21-Jan-2011 Long OPERATIONS CONTROLLER, Marisela L Start : 21-Jan-2011 Active Cardizem [...] 90 days Quantity: 90 {Tablet} Refills: 0 Ordered:29-Jun-2018 Birdie Garrett DO, DO, Kathleen Start : 29-Jun-2018 Active Lasix 20 MG Oral Tablet uad Tablet fri for 90 days Quantity: 180 {Tablet} Refills: 0 Ordered:29-Jun-2018 Birdie Garrett DO, DO, Kathleen Start : 29-Jun-2018 Active Maxalt 10 MG Oral Tablet uad [...] 90 days Quantity: 90 {Capsule} Refills: 0 Ordered:29-Jun-2018 Birdie Garrett DO, DO, Kathleen Start : 29-Jun-2018 Active Plaquenil 200 MG Oral Tablet 2 [...] 90 days Quantity: 360 {Capsule} Refills: 0 Ordered:29-Jun-2018 Birdie Garrett DO, DO, Kathleen Start : 29-Jun-2018 Active RITALIN, 10MG (Oral Tablet) 1 (one) Tablet Tablet BID for 0 days Quantity: 60 {Tablet} Refills: 0 Ordered:13-Jul-2015 Hillary Russell MD Start : 13-Jul-2015 Active Singulair 10 MG Oral Tablet 1 Tablet qd for 90 days Quantity: 90 {Tablet} Refills: 0 Ordered:29-Jun-2018 Birdie Garrett DO, DO, Kathleen Start : 29-Jun-2018 Active Synthroid 50 MCG Oral Tablet 1 Tablet daily for 0 days Quantity: 90 {Tablet} Refills: 3 Ordered:03-Aug-2018 Birdie Garrett DO, DO, Kathleen Start : 03-Aug-2018 Active Comments:on empty stomach in am with no food Topamax 50 MG Oral Tablet 2 (two) Tablet in AM and 2 tabs in PM for 90 days Quantity: 360 {Tablet} Refills: 0 Ordered:29-Jun-2018 Birdie Garrett DO, DO, Kathleen Start : 29-Jun-2018 Active TraMADol HCl 50 MG Oral Tablet [...] 2 Views Result: Comments: See Note; NOTES: [facility] Imaging Services [address] [place] [address] Pelvis 1 or 2 Views MR#: [id number] Acct: [id number] Name: KRISTIN FAUST Edmund Rep #: [id number] D OB: 1970 F 47 From: Slava Lake MD PCP: Rosalinda Garrett DO Status: REG CLI Study: Pelvis 1 or 2 Views Date of Exam: 09/17/18 Exam# [id number] Ordering Dr: Re López MD STUDY: X-RAY [...] CC: Rosalinda Garrett DO; Re López MD Barrel Lathe Operator Inside: Signed 16-Oct-2017 Bilat Brst Sky Stand Alone Result: Comments: See Note; NOTES: [facility] Imaging Services [address] [place] [address] Bilat Brst Sky Stand Alone MR#: [id number] Acct: [id number] Name: KRISTIN FAUST Rep #: [id number] : 1970 F 46 From: Oni Leone MD PCP: Rosalinda Garrett DO Status: REG CLI Study: Bilat Brst Sky Stand Alone Date of Exam: 10/16/17 Exam# [id number] Ordering Dr: Rosalinda Garrett MAMMOGRAPHY - BILATERAL [...] delay biopsy of a clinically suspicious abnormality. [id number] Electronically Signed: Oni Leone MD at 14:42 EST Tel [phone], Service support [phone], CC: Rosalinda Garrett DO Barrel Lathe Operator Inside: Signed 16-Oct-2017 Breast Limited Unilateral Result: Comments: See Note; NOTES: [facility] Imaging Services [address] [place] [address] Breast Limited Unilateral MR#: [id number] Acct: [id number] Name: KRISTIN FAUST Rep #: [id number] : 1970 F 46 From: Oni Leone MD PCP: Rosalinda Garrett DO Status: REG CLI Study: Breast Limited Unilateral Date of Exam: 10/16/17 Exam# [id number] Ordering Dr: Rosalinda Garrett DO STUDY: ULTRASOUND [...] Oni Leone MD at 15:23 EST Tel [phone], Service support , CC: Rosalinda Garrett DO Barrel Lathe Operator Inside: Signed 16-Oct-2017 DIAG MAMM W/CAD, BILAT Result: Comments: See Note; NOTES: [facility] Imaging Services [address] [place] [address] DIAG MAMM W/CAD, BILAT MR#: [id number] Acct: [id number] Name: KRISTIN FAUST Rep #: [id number] : 1970 F 46 From: Oni Leone MD PCP: Rosalinda Garrett DO Status: REG CLI Study: DIAG MAMM W/CAD, BILAT Date of Exam: 10/16/17 Exam# [id number] Ordering Dr: Rosalinda Garrett DO MAMMOG TIFFANIE [...] delay biopsy of a clinically suspicious abnormality. [id number] Electronically Signed: Oni Leone MD at 14:42 EST Tel [phone], Service support , Fa x [phone] CC: Rosalinda Garrett DO Barrel Lathe Operator Inside: Signed 04-Apr-2017 Brain W/WO Contrast Result: Comments: See Note; NOTES: [facility] Imaging Services [address] [place] [address] Verdana 4d Brain W/WO Contrast MR#: [id number] Acct: [id number] Name: FAUSTKRISTIN Edmund Rep #: [id number] : 1970 F 46 From: Nir Zuleta MD PCP: Rosalinda Garrett DO Status: REG CLI Study: Brain W/WO Contrast Date of Exam: 04/04/17 Exam# [id number] Ordering Dr: Rosalinda Garrett DO STUDY: MRI [...] Service support , CC: Rosalinda Garrett DO Barrel Lathe Operator Inside: Signed 04-Apr-2017 MRA Head ONLY without Contrast Result: Comments: See Note; NOTES: [facility] Imaging Services [address] [place] [address] Verdana 4d MRA Head ONLY without Contrast MR#: [id number] Acct: [id number] Name: FISH FAUST Rep #: [id number] : 1970 F 46 From: Kian Pedroza MD PCP: Rosalinda Garrett DO Status: REG CLI Study: MRA Head ONLY without Contrast Date of Exam: 04/04/17 Exam# [id number] Ordering Dr: Rosalinda Herron DO STUDY: MRA OF THE HEAD WITHOUT CONTRAST REASON FOR EXAM: Female, 46 years old. Memory loss, anisocoria, headaches. TECHNIQUE: 3-D vtjl-yz-hoqurt (TOF) imaging was performed with M IPs. [...] There is no demonstrated aneurysm of the [place]. There is no major vessel occlusion or hemodynamically significant stenosis. There is no demonstrated abnormality of the visualized brain. MRI/MRA Head ON LY without Contrast IMPRESSION: Normal MRA of the head, without any interval change from prior study. Electronically Signed: Marcos Pedroza MD at 1:46 EDT Tel , Service suppo rt , CC: Rosalinda Garrett DO Barrel Lathe Operator Inside: Signed 20-Apr-2016 Emergency Department Summary Result: Comments: See Note; NOTES: [facility] Medical Records Department [address] [place] [address] Emergency Department Summary MR#: [id number] Acct: [id number] Name: KRISTIN FAUST Rep #: [id number] : 1970 45 From: Markus Palma MD PCP: Rosalinda Garrett DO Status: DEP ER DATE OF SERVICE: 04/20/2016 HISTORY OF PRESENT ILLNESS: A 45-year-old woman who prese nts with myalgias that started yesterday with dark colored urine. This occurred after helping her mother lay yards of Promuc. She has history of autoimmune disorder, renal [...] C: Rosalinda Garrett DO T: NTS JOB: [id number] 04/20/162341 <Electronically signed by Markus Palma MD> Date Markus Palma MD Cosigner S ignature (If Indicated): Date CC: Rosalinda Garrett DO Date Dictated: 04/20/161741 Date Transcribed: 04/20/161741 Barrel Lathe Operator Inside: Signed 20-Apr-2016 Discharge Instruction Result: Comments: See Note; NOTES: [facility] Medical Records Department [address] [place] [address] Discharge Instruction 04/20/161741 MR#: [id number] Acct: [id number] Name: KRISTIN FAUST Rep #: [id number] : 1970 45 From: Markus Palma MD PCP: Rosalinda Garrett DO Status: REG ER ED Disposition - Plan for ED Patient: Disposition: Home or Assisted Living [facility] Complaint: General Illness Instructions: ED Myalgias, ED Renal Insufficiency Referrals: Rosalinda Garrett DO [Primary Care Provider] - As Needed What to do if you have Problems For any incr eased pain, shortness of breath, bleeding, nausea or vomiting, chest pain, or any unexpected problems, contact your doctor. Call [facility] ([phone]) or report to the closest Emergency Room . Call 911 if necessary. 04/20/161743 <Electronically signed by Markus Palma MD> Date Markus Palma MD Cosigner Signature (If Ind icated): Date CC: Rosalinda Garrett 23-Feb-2016 12 Lead Electrocardiogram Result: Comments: See Note; NOTES: [facility] Cardiovascular Services [address] [place] [address] 12 Lead EKG 02/22/16103 MR#: [id number] Acct: [id number] Name: KRISTIN FAUST Rep #: [id number] : 1970 45 From: Davi Lutz MD [...] Normal ECG Confirmed by DAVI LUTZ ([id number]), photograph editor DICK SHIPLEY ([id number]) on 02/23/2016 2:52:46 PM Referred By: ABHISHEK Confirmed By:DAVI LUTZ 02/23/16 1452 Date ___ Davi Lutz MD CC: Hillary Russell MD Date Dictated: 02/22/16103 Date Transcribed: 02/22/16103 Barrel Lathe Operator Inside: Signed 23-Feb-2016 EKG (42930) Result: [MEASUREMENTS ANALYSIS] Date of Test: 02/23/2016 13:44:59; Heart Rate: 72; MT Interval: 150; QRS: 88; QT Interval: 412; Corrected QT Interval (QTc): 433; P Wave [place]: 57; QRS Wave [place]: 55; T Wave [place]: 41; Blood Pressure: 130/86 [ECG DIAGNOSTIC STATEMENTS] Date of Test: 02/23/2016 13:44:59; Summary: Sinus Rhythm WITHIN NORMAL LIMITS 22-Feb-2016 Emergency Department Summary Result: Comments: See Note; NOTES: [facility] Medical Records Department [address] [place] [address] Emergency Department Summary MR#: [id number] Acct: [id number] Name: KRISTIN FAUST Rep #: [id number] : 1970 45 From: Garcia Asencio MD [...] of 72 with no acute signs of IA, ischemia or dysrhythmia. White count of 11, [...] MD C C: Hillary Russell MD T: [facility] JOB: [id number] 02/22/16 0535 <Electronically signed by Garcia Asencio MD> Date Garcia Asencio MD Cosigner Signature (If Indicated): Date CC: Hillary Russell MD Date Dictated: 02/22/16418 Date T ranscribed: 02/22/16418 Barrel Lathe Operator Inside: Signed 22-Feb-2016 Discharge Instruction Result: Comments: See Note; NOTES: [facility] Medical Records Department [address] [place] [address] Discharge Instruction 02/22/16 0148 MR#: [id number] Acct: [id number] Name: KRISTIN FAUST Edmund Rep #: [id number] : 1970 45 From: Garcia Asencio MD [...] unexpected problems, contact your doct or. Call [facility] ([phone]) or report to the closest Emergency Room. Call 911 if necessary. 02/22/16 0529 <Electronically signed by Garcia Asencio MD> Date __ Garcia Asencio MD Cosigner Signature (If Indicated): Date CC: Hillary Russell MD 22-Feb-2016 Chest 1 View (Portable) Result: Comments: See Note; NOTES: [facility] Imaging Services [address] [place] [address] Verdana 4d Chest 1 View (Portable) MR#: [id number] Acct: [id number] Name: KRISTIN JCAKSON Rep #: [id number] : 1970 F 45 From: Winston Espinosa PCP: Hillary Russell MD Status: REG ER Study: Chest 1 View (Portable) Date of Exam: 02/22/16 Exam# [id number] Ordering Dr: Garcia Asencio MD STUDY: X-RAY [...] at 1:42 EDT , Servic e support [phone], RAD/Chest 1 View (Portable) IMPRESSION: Normal x-ray examination of the chest. Electronically Signed: Winston Espinosa MD at 1:42 EDT , Service support [phone], CC: Hillary Russell MD; Garcia Asencio MD Barrel Lathe Operator Inside: Signed 08-Nov-2015 Brain W/WO Contrast Result: Comments: See Note; NOTES: [facility] Imaging Services [address] [place] [address] Verdana 4d Brain W/WO Contrast MR#: [id number] Acct: [id number] Name: VIBHA FAUST Rep #: [id number] : 1970 F 44 From: Daylin Quintana MD PCP: Hillary Russell MD Status: REG CLI Study: Brain W/WO Contrast Date of Exam: 11/08/15 Exam# [id number] Ordering Dr: Aamir Russell MD STUDY: MRI [...] MD at 16:49 EST , Service support [phone], CC: Hillary Russell MD Barrel Lathe Operator Inside: Signed 08-Sep-2015 Kidney and Bladder Result: Comments: See Note; NOTES: [facility] Imaging Services [address] [place] [address] Verdana 4d Kidney and Bladder MR#: [id number] Acct: [id number] Name: LISA FAUST Rep #: [id number] : 1970 F 44 From: Bia Cain MD PCP: Hillary Russell MD Status: REG CLI Study: Kidney and Bladder Date of Exam: 09/08/15 Exam# [id number] Ordering Dr: Amy Gonzalez STUDY: RENAL ULTRASOUND [...] 17 :16 EDT Tel , Service support [phone], CC: Amy Gonzalez; Hillary Russell MD Barrel Lathe Operator Inside: Signed 27-Jun-2014 Ligia Vasquez Digital & CAD Result: Comments: See Note; NOTES: [facility] Imaging Services [address] [place] [address] Breast Imaging Report MR#: [id number] Acct: [id number] Name: KRISTIN YOUNG Rep #: [id number] : 1970 F 43 From: Oni Leone MD PCP: Hillary Russell MD Status: REG CLI Exam# [id number] Ordering Dr: Hillary Russell MD MAMMOGRAPHY - [...] Oni moreira MD at 11:04 EDT Tel [phone], Service support [phone], CC: Hillary Russell MD Barrel Lathe Operator Inside: Signed 01-Feb-2014 Chest PA and Lateral Result: Comments: See Note; NOTES: [facility] Imaging Services [address] [place] [address] Radiology Report MR#: [id number] Acct: [id number] Name: KRISTIN YOUNG Rep #: [id number] : 1970 F 43 From: Winston Espinosa PCP: Hillary Russell MD Status: REG CLI Study: Chest PA and Lateral Date of Exam: 02/01/14 Exam# [id number] Ordering Dr: Hillary Russell MD STUDY: X-RA [...] M.D. at 7:18 EDT , Service support [phone], Fax CC: Hillary Russell MD Barrel Lathe Operator Inside: Signed 17-Dec-2013 Abdomen Complete Result: Comments: See Note; NOTES: [facility] Imaging Services [address] [place] [address] Ultrasound Report MR#: [id number] Acct: [id number] Name: KRISTIN YOUNG Rep #: [id number] : 1970 F 43 From: Oni Leone MD PCP: Status: REG CLI Study: Abdomen Complete Date of Exam: 12/17/13 Exam# [id number] Ordering Dr: Amy Gonzalez STUDY: ABDOMINAL ULTRASOUND [...] M.D. at 14:04 EST , Service support [phone], CC: Amy Gonzalez Barrel Lathe Operator Inside: Signed 17-Dec-2013 Pelvic (Non ) Result: Comments: See Note; NOTES: [facility] Imaging Services [address] [place] [address] Ultrasound Report MR#: [id number] Acct: [id number] Name: KRISTIN YOUNG Rep #: [id number] : 1970 F 43 From: Oni Leone MD PCP: Status: REG CLI Study: Pelvic (Non ) Date of Exam: 12/17/13 Exam# [id number] Ordering Dr: Amy Gonzalez STUDY: ULTRASOUND OF [...] at 14:06 EST Tel , Service support [phone], CC: Amy Gonzalez Barrel Lathe Operator Inside: Signed Family History Unknown Family Member Name [...] ANTI-KARY <0.2 {AI} (Normal) Range: 0.0-0.9 :19 Cpuv-Nzpyvrmtfub-25 AB Comments: [facility] (refer to report for specific site)refer to report for address and phone number ANTISCLER <0.2 {AI} (Normal) Range: 0.0-0.9 :19 Antiextractable Nug Ag Comments: [facility] (refer to report for specific site)refer to report for address and phone number BRICENO Ab <0.2 {AI} (Normal) Range: 0.0-0.9 ONLINE MERCHANT Ab <0.2 {AI} (Normal) Range: 0.0-0.9 :19 ANTINUCLEAR ANTIBODIES DIRECT Comments: [facility] (refer to report for specific site)refer to report for address and phone number MONIQUE-DIRECT Negative (Normal) Comments: Performed at: CB - [facility] [id number] Director: [place] Spivey PhD, Phone: [phone] 8-Egl-810746:19 CBC W/Diff, Automated Comments: [facility] [address] [place], [address] Absolute Lymph 1.12 {X10_3/ul} (Normal) [...] 4.2-5.4 WBC 6.3 K/mm3 (Normal) Range: 4.4-11.0 1-Ifm-875551:19 Comprehensive Metabolic Profil Comments: [facility] [address] [place], [address] GAP 8 (Normal) Range: 5-15 CO2 26.0 [...] Comments: Please note revised GLUCOSE reference range fvsgdmcue64/02/2018. 4-Kgl-706883:19 CRP Comments: [facility] [address] [place], [place], [address] C-REACTIVE PROT < 2.90 mg/L (Normal) Range: 0.0-3.0 Comments: C-Reactive Protein (CRP) provides useful information for thediagnosis, therapy and monitoring of inflammatory processesand associated diseases. For the evaluation of Relative Riskfor Cardiovascular Dise ase, a High Sensitivity CRP (HSCRP)should be ordered. 6-Cxa-221480:19 Erythrocyte Sed Rate Comments: [facility] [address] [place], [address] SED RATE 2 mm/h (Normal) Range: 0-20 :19 Protein+Creatinine Ratio,Urine Comments: [facility] [address] [place], [address] PROT:CRE RATIO 234 {mg/g_CRE} (Abnormal) Range: 0-200 PROTEIN,UR.RAN. 11.5 mg/dL (Normal) UR CREAT 49.10 mg/dL (Normal) 6-Uuq-894954:19 Rheumatoid Factor Comments: [facility] [address] [place], [address] RHEUMATOID FAC < 10.0 {IU/mL} (Normal) :19 Sjogren's Antibodies A/B Comments: [facility] (refer to report for specific site)refer to report for address and phone number Anti-SS-B < 0.2 {AI} (Normal) Range: 0.0-0.9 Anti-SS-A < 0.2 {AI} (Normal) Range: 0.0-0.9 :19 Urinalysis, Routine (Dipstick) Comments: How was Urine Obtained? CLEAN [facility] [address] [place], [address] LEUK ESTERASE Negative /ul (Normal) OCCULT [...] Qn, 24-Hr Comments: PATIENT NOT FASTINGPERFORMED BY: KEVIN [facility] [address] [place] [id number] Information: START 07/14/18@705AM Urine Prot,24hr calculated 71 {mg/24_hr} (Normal) Range: 30-150 Protein,Total,Urine 4.2 mg/dL (Normal) :38 Microscopic Examination Comments: PATIENT WAS FASTINGPERFORMED BY: [address] [id number] BY: [place] [id number] [facility] [id number] Bacteria Few (Normal) Epithelial Cells (non renal) 0-10 {/hpf} (Normal) Range: 0 - 10 RBC 0-2 {/hpf} (Normal) Range: 0 - 2 WBC 0-5 {/hpf} (Normal) Range: 0 - 5 :38 T4, FREE (THYROXINE) Comments: PATIENT WAS FASTINGPERFORMED BY: [address] [id number] BY: [place] [address] [facility] [id number] (41121) T4,Free(Direct) 1.45 ng/dL (Normal) Range: 0.82-1.77 :38 T3, FREE (TRIDOTHYRONINE) Comments: PATIENT WAS FASTINGPERFORMED BY: [facility] [id number] BY: [place] [address] [facility] [id number] (46222) Triiodothyronine (T3), Free 2.6 pg/mL (Normal) Range: 2.0-4.4 :38 TSH (83039) Comments: PATIENT WAS FASTINGPERFORMED BY: [facility] [id number] BY: [facility] MedicalZachary [place] 2280570 [facility] [id number] TSH 3.910 {uIU/mL} (Normal) Range: 0.450-4.500 80-Lsr-02774:38 URINALYSIS, W/ MICRO Comments: PATIENT WAS FASTINGPERFORMED BY: [address] [id number] BY: [facility] ReadyClara [facility] CenterNtogcv8679 [facility] [id number] (18754) Microscopic Examination See below: (Normal) Comments: Microscopic was indicated and was performed. Microscopic Examination MICRON (Normal) Comments: Microscopic follows if indicated. Nitrite, Urine Negative (Normal) Urobilinogen,Semi-Qn 0.2 mg/dL (Normal) Range: 0.2-1.0 Bilirubin Negative (Normal) Occult Blood Negative (Normal) Ketones Negative (Normal) Glucose Negative (Normal) Protein Negative (Normal) WBC Esterase Negative (Normal) Appearance Clear (Normal) Urine-Color Yellow (Normal) pH 7.0 (Normal) Range: 5.0-7.5 Specific Sterrett 1.011 (Normal) Range: 1.005-1.030 :38 MICROALBUMIN: CREATININE Comments: PATIENT WAS FASTINGPERFORMED BY: [facility] [id number] BY: [facility] ReadyClara [facility] Medical CenterVqfddn7066 [facility] [id number] RATIO (80583) AND (49480) Alb/Creat Ratio 11.9 {mg/g_creat} (Normal) Range: 0.0-30.0 Albumin, Urine 7.4 ug/mL (Normal) Creatinine, Urine 62.1 mg/dL (Normal) 23-Sio-49110:38 METABOLIC PANEL, Comments: PATIENT WAS FASTINGPERFORMED BY: [facility] [id number] BY: [facility] ReadyClara [facility] Medical CenterBiltvd2644 [facility] [id number] COMPREHENSIVE (04212) ALT (SGPT) 14 [iU]/L (Normal) Range: 0-32 [...] 6-24 Glucose 83 mg/dL (Normal) Range: 65-99 50-Mrw-80378:38 LIPOPROTEIN, BLD, BY NMR Comments: PATIENT WAS FASTINGPERFORMED BY: BN [facility] [address] [id number] BY: CB [facility] [address] [facility] [id number] (41488) LP-IR Score <25 (Normal) Comments: INSULIN RESISTANCE MARKER <--Insulin Sensitive Insulin Resistant--> Percentile in Reference PopulationInsulin Resistance ScoreLP-IR Score Low 25th 50th 75th High <27 27 45 63 >63LP-IR Score is inaccurate if patient is non-fasting. .The LP-IR score is a laboratory developed i banner that has beenassociated with insulin resistance and [...] were developed and their performance characteristicsdetermined by [employer]. These assays have not been cleared by [...] High 1600 - 2000 Very High > 09-Jul-20188:38 CBC W/AUTO DIFF WBC Comments: PATIENT WAS FASTINGPERFORMED BY: BN [facility] Vreqfcides3371 [facility] [id number] BY: CB [facility] Vmixpi7014 [facility] [id number] (98527) Immature Grans (Abs) 0.0 {x10E3/uL} (Normal) Range: [...] 3.77-5.28 WBC 8.2 {x10E3/uL} (Normal) Range: 3.4-10.8 71-Rrn-010327:56 URINE EDWARD CULTURE-SHANAE COL Comments: PATIENT NOT FASTINGPERFORMED BY: [facility] CenterVjbhez8402 [facility] [id number] Information: SRC:UC COUNT (63760) Result 1 MUG (Normal) Comments: Mixed urogenital flora1,000 Colonies/mL Urine Culture,Comprehensive Final report (Normal) 01-Hcd-517700:11 Urinalysis, Office (16561) UA - LEUKOCYTE ESTERASE Negative (Normal) UA - NITRITE Negative (Normal) URINE UROBILINGN SHANAE TIMED Normal mg/dL (Normal) UA - PROTEIN Negative mg/dL (Normal) UA - PH 6 (Abnormal) UA - BLOOD Hemolyzed Trace (Normal) UA - SPECIFIC GRAVITY 1.030 (Abnormal) UA - KETONES Negative mg/dL (Normal) UA - BILIRUBIN Negative (Normal) UA - GLUCOSE Negative (Normal) 03-Khd-40471:55 Albumin, 24-Hr Urine Comments: PATIENT NOT FASTINGPERFORMED BY: [facility] [facility] [id number] Albumin,Urine mg/day 34.8 {mg/day} (Abnormal) Albumin, Urine 34.8 ug/mL (Normal) :56 Protein Electro, Random Urine Comments: PATIENT WAS FASTINGPERFORMED BY: [facility] [facility] [id number] Please note: SPRCS (Normal) Comments: Protein electrophoresis scan will follow via computer, mail, orcourier delivery. M-Jas, % Not Observed % (Normal) Gamma Globulin, U 7.5 % (Normal) Beta Globulin, U 15.8 % (Normal) Zbiqz-9-Ymeggpvv, U 4.0 % (Normal) Ehqht-8-Sqacyiqk, U 2.8 % (Normal) Albumin, U 69.9 % (Normal) Protein,Total,Urine 7.5 mg/dL (Normal) :55 Total Protein,24 Hour Comments: PATIENT NOT FASTINGPERFORMED BY: [facility] [facility] [id number] Information: START 12/11/17@651AM Urine (68537) Prot,24hr calculated 119 {mg/24_hr} (Normal) Range: 30-150 Protein,Total,Urine 11.9 mg/dL (Normal) :56 LIPID PANEL (74944) Comments: PATIENT WAS FASTINGPERFORMED BY: [facility]6[address] [facility] [id number] LDL/HDL Ratio 1.5 {ratio_units} (Normal) Range: 0.0-3.2 Comments: LDL/HDL Ratio Men Women 1/2 Avg.Risk 1.0 1.5 Av g.Risk 3.6 3.2 2X Avg.Risk 6.2 5.0 3X Avg.Risk 8.0 6.1 LDL Cholesterol Calc 105 mg/dL (Abnormal) Range: 0-99 VLDL Cholesterol Pete 17 mg/dL (Normal) Range: 5-40 HDL Cholesterol 69 mg/dL (Normal) Triglycerides 86 mg/dL (Normal) Range: 0-149 Cholesterol, Total 191 mg/dL (Normal) Range: 100-199 :56 MICROALBUMIN: CREATININE RATIO Comments: PATIENT WAS FASTINGPERFORMED BY: [facility] ReadyClara [facility] Medical CenterEdoaxb6895 [facility] [id number] (22010) AND (55371) Microalb/Creat Ratio 87.3 {mg/g_creat} (Abnormal) Range: 0.0-30.0 Microalbumin, Urine 41.4 ug/mL (Normal) Creatinine, Urine 47.4 mg/dL (Normal) :56 METABOLIC PANEL, COMPREHENSIVE Comments: PATIENT WAS FASTINGPERFORMED BY: [facility] ReadyClara [facility] Medical CenterIxyzqx0605 [facility] [id number] (05175) ALT (SGPT) 15 [iU]/L (Normal) Range: 0-32 [...] Glucose, Serum 84 mg/dL (Normal) Range: 65-99 :56 CBC W/AUTO DIFF WBC (97576) Comments: PATIENT WAS FASTINGPERFORMED BY: Podcast Ready Efyjht5925 [facility] [id number] Immature Grans (Abs) 0.0 {x10E3/uL} (Normal) Range: [...] Protein Electrophoresis Comments: PATIENT WAS FASTINGPERFORMED BY: Podcast ReadyClara [facility]ass Medical CenterKaipmh9842 [facility] [id number] (SPEP) (75990) Please note: SPRCS (Normal) Comments: Protein electrophoresis scan will follow via computer, mail, orcourier delivery. A/G Ratio 1.3 (Normal) Range: 0.7-1.7 Globulin, Total 3.0 g/dL (Normal) Range: 2.2-3.9 M-Jas Not Observed g/dL (Normal) Gamma Globulin 1.0 g/dL (Normal) Range: 0.4-1.8 Beta Globulin 1.1 g/dL (Normal) Range: 0.7-1.3 Rbkjj-0-Zfwdznwe 0.7 g/dL (Normal) Range: 0.4-1.0 Nspsd-9-Rndowhkg 0.2 g/dL (Normal) Range: 0.0-0.4 Albumin 3.9 g/dL (Normal) Range: 2.9-4.4 :56 MAGNESIUM (53924) Comments: PATIENT WAS FASTINGPERFORMED BY: [employer] Ipqbyu5317 [facility] [id number] Magnesium, Serum 2.1 mg/dL (Normal) Range: 1.6-2.3 :56 PHOSPHORUS (41773) Comments: PATIENT WAS FASTINGPERFORMED BY: [employer] Ready Qlrvqc2564 [facility] [place] [id number] Phosphorus, Serum 3.1 mg/dL (Normal) Range: 2.5-4.5 35-Qwt-996494:56 CALCIFEDIOL (49131) Comments: PATIENT WAS FASTINGPERFORMED BY: [facility] Ygirzo6637 [facility] [id number] Vitamin D, 25-Hydroxy 39.0 ng/mL (Normal) Range: 30.0-100.0 Comments: Vitamin D deficiency has been defined by the [place] of[place]icine and an Endocrine Society practice guideline as alevel of serum 25-OH vitamin D less than 20 ng/mL (1,2).The Endocrine Society went on to further define vitamin Dinsufficiency as a level between 21 and 29 ng/mL (2).1. IOM ([place] of Medicine). 2010. Dietary reference intakes for calcium and D. [place]: The National Academies Press.2. Chriss MF, Ez MUSE, Kilo MCCORMICK, et al. Evaluation, treatment, and prevention of vitamin D deficiency: an Endocrine Society clinical practice guideline. JCEM. 2010; 96(7):1911-30. :56 PARATHORMONE (10448) Comments: PATIENT WAS FASTINGPERFORMED BY: [facility] Lepdua1972 Reina RoadDublin [place] [id number] PTH, Intact 30 pg/mL (Normal) Range: 15-65 :43 METABOLIC PANEL, COMPREHENSIVE Comments: PATIENT NOT FASTINGPERFORMED BY: [facility] Hjocgz2529 Reina RoadDublin [place] [id number] (81336) ALT (SGPT) 10 [iU]/L (Normal) Range: 0-32 [...] Glucose, Serum 83 mg/dL (Normal) Range: 65-99 :40 TSH (68789) Comments: week of Aug 04; PATIENT NOT FASTINGPERFORMED BY: [facility] [facility] [id number] TSH 4.000 {uIU/mL} (Normal) Range: 0.450-4.500 4-Xna-238499:10 URINE EDWARD CULTURE-IDENTIFICATN Comments: PATIENT NOT FASTINGPERFORMED BY: [facility] [facility] [address] [id number] (84283) Result 1 MUG (Normal) Comments: Mixed urogenital flora10,000-25,000 colony forming units per mL Urine Final report (Normal) Culture,Comprehensive 5-Nij-039434:10 URINALYSIS (67053) Comments: PATIENT NOT FASTINGPERFORMED BY: [facility] [facility] [address] [id number] Microscopic Examination MICNIP (Normal) Comments: Microscopic not indicated and not performed. Nitrite, Urine Negative (Normal) Urobilinogen,Semi-Qn 0.2 mg/dL (Normal) Range: 0.2-1.0 Bilirubin Negative (Normal) Occult Blood Negative (Normal) Ketones Negative (Normal) Glucose Negative (Normal) Protein Negative (Normal) WBC Esterase Negative (Normal) Appearance Clear (Normal) Urine-Color Yellow (Normal) pH 7.0 (Normal) Range: 5.0-7.5 Specific Sterrett 1.007 (Normal) Range: 1.005-1.030 3-Obe-622863:10 MICROALBUMIN: CREATININE RATIO Comments: PATIENT NOT FASTINGPERFORMED BY: [facility] [id number] (86112) AND (96927) Microalb/Creat Ratio 77.2 {mg/g_creat} (Abnormal) Range: 0.0-30.0 Microalbumin, Urine 26.4 ug/mL (Normal) Creatinine, Urine 34.2 mg/dL (Normal) 9-Boc-943122:10 Metabolic Panel, Comments: PATIENT NOT FASTINGPERFORMED BY: [facility] [id number] Information: SRC:[facility] (90069) ALT (SGPT) 13 [iU]/L (Normal) Range: 0-32 [...] Glucose, Serum 68 mg/dL (Normal) Range: 65-99 4-Akc-786102:10 T4, FREE (THYROXINE) (40872) Comments: PATIENT NOT FASTINGPERFORMED BY: [employer] Ready Gndjrn8378 Redeem&GetFormerly [facility], [facility] [id number] T4,Free(Direct) 1.03 ng/dL (Normal) Range: 0.82-1.77 :10 T3, FREE (TRIDOTHYRONINE) (66311) Comments: PATIENT NOT FASTINGPERFORMED BY: [employer] Ready Jxmaos3829 Redeem&GetFormerly [facility], [facility] [id number] Triiodothyronine,Free,Serum 2.8 pg/mL (Normal) Range: 2.0-4.4 5-Gul-464324:10 TSH (06467) Comments: PATIENT NOT FASTINGPERFORMED BY: [facility] Mafmjf[address] Richardson [place] [id number] TSH 5.160 {uIU/mL} (Abnormal) Range: 0.450-4.500 07-Qzi-808248:33 Serum Creatinine AND GFR Comments: [facility] [address] [place], [place], [address] EST GFR - AA 61 mL/min (Normal) Comments: GFR Calc EST GFR 50 mL/min (Abnormal) Comments: Non- GFR Calc CREAT,SERUM 1.22 mg/dL (Abnormal) Range: 0.55-1.02 Comments: The validity of the calculated GFR AND GFRAA in patients over70 years has not been determined. Clinical correlation isessential. 22-Mar-20178:14 CBC W/Diff, Automated Comments: [facility] [address] [place], [place], [id number] Absolute Lymph 1.12 {X10_3/ul} (Normal) Range: 0.83-4.51 [...] 4.2-5.4 WBC 6.4 K/mm3 (Normal) Range: 4.4-11.0 :14 Comprehensive Metabolic Profil Comments: [facility] [address] [place], [address] GAP 9 (Normal) Range: 5-15 CO2 26.0 [...] 7-18 GLU 86 mg/dL (Normal) Range: 70-110 6-May-12333:14 Free T3 Comments: [facility] [address] [place], [place], [address] FREE T3 2.2 pg/mL (Normal) Range: 2.18-3.98 22-Mar-20178:14 Lipid Profile Comments: [facility] F[address]phylwvg[address] [place], [place], [address] VLDL 23 mg/dL (Normal) Range: 5-40 LDL [...] 200-240 mg/dL Borderline >240 mg/dL High Risk :14 Microalb:Creat Ratio,Random UR Comments: [facility] [address] [place], [place], [address] MALB:CREAT 18.6 {mg/g_CRE} (Normal) MICROALBUMIN,UR 18.6 mg/L (Normal) UR CREAT 100.00 mg/dL (Normal) :14 T4 Free Direct Comments: [facility] [address] [place], [place], [address] T4 FREE DIRECT 0.83 ng/dL (Normal) Range: 0.76-1.46 22-Mar-20178:14 Thyroid Peroxidase AB Comments: [facility] (refer to report for specific site)refer to report for address and phone number TPO AB 0997 15 {IU/mL} (Normal) Range: 0-34 Comments: Performed at: [address] [id number] Director: West Spivey PhD, Phone: [phone] 22-Mar-20178:14 Thyroid Stim Hormone (TSH) Comments: [facility] [address] [place], [address] TSH 6.38 {uIU/mL} (Abnormal) Range: 0.358-3.74 22-Mar-20178:14 Urinalysis, Complete Comments: How was Urine Obtained? [facility]ATCHW[facility] Iketimlyqe[address] [place], [address] MUCUS, URINE 0 SEEN {/hpf} (Normal) BACTERIA [...] (Normal) CLARITY Clear (Normal) COLOR Yellow (Normal) 98-Fpa-739464:10 Mycoplasma pneu. IgG/IgM Abs Comments: PATIENT NOT FASTINGPERFORMED BY: [facility] [facility] [address] [id number] M pneumoniae IgM Abs <770 U/mL (Normal) [...] showing a significant increase in antibody levels. :56 Bordetella Pertussis PCR Comments: PATIENT NOT FASTINGPERFORMED BY: [employer] Pdqhniyane3513 [facility] [id number] Information: NASAL (16816) Bordetella parapertussis DNA Negative (Normal) Comments: This test was developed and its performance characteristics determinedby [employer]. It has not been cleared or approved by theU.S. Food and Drug Administration. The FDA has determined that lino chclearance or approval is not necessary. This test is used for clinicalpurposes. It should not be regarded as investigational or research. Bordetella pertussis DNA Negative (Normal) 0-Ggj-688314:50 CPK Total, Creatine Kinase Comments: [facility] [address] [place], [address] CPK TOTAL 116 U/L (Normal) Range: 26-192 2-Oei-032566:02 CBC with auto diff Comments: PATIENT NOT FASTINGPERFORMED BY: Podcast ReadyClara Maass Medical CenterXeipkz0210 [facility] [id number] Information: [id number] (40159) Immature Grans (Abs) 0.0 {x10E3/uL} (Normal) Range: [...] 3.77-5.28 WBC 7.3 {x10E3/uL} (Normal) Range: 3.4-10.8 6-Jti-228473:46 EDWARD CULTURE-BLOOD (06504) Comments: PATIENT NOT FASTINGPERFORMED BY: [employer] [id number] Information: SRC:BLD [id number] Result 1 NGFD (Normal) Comments: No aerobic or anaerobic growth in five days. Blood Culture, Routine Final report (Normal) 7-Hki-688635:01 URINE EDWARD CULTURE-IDENTIFICATN Comments: PATIENT NOT FASTINGPERFORMED BY: [employer] [facility]Land[address] [id number] Information: [id number] (06701) Result 1 MUG (Normal) Comments: Mixed urogenital flora2,000 Colonies/mL Urine Culture,Comprehensive Final report (Normal) 5-Xsm-298930:22 Urinalysis, Office (37352) UA - LEUKOCYTE ESTERASE Negative (Normal) UA [...] Serial specimen #1, #2, #3, or #4: 1W[facility] [address] [place], [place], [address] GAP 5 (Normal) Range: 5-15 CO2 26.0 [...] Range: 70-110 :05 CBC W/Diff, Automated Comments: [facility] [address]clher[address] [place], [place], [address] Absolute Lymph 1.64 {X10_3/ul} (Normal) Range: 0.83-4.51 [...] Serial specimen #1, #2, #3, or #4: [address] [place] [address] [address]akd[address] [place], [address] CKRI 0.9 % (Normal) Range: [...] Serial specimen #1, #2, #3, or #4: [address] [place] [address] Obzhqadaji[address] [place], [address] TROPONIN-I < 0.02 ng/mL (Normal) Comments: TROPONIN-I EXPECTED VALUES <0.05 NEGATIVE 0.06 - 0.59 AT RISK OF IA > OR = 0.60 SUGGEST IA 27-Rty-141848:00 Ferritin (22369) Comments: PATIENT NOT FASTINGPERFORMED BY: [facility] YoungstownCoClara Maass Medical CenterIkkovj9055 [facility] [id number] Ferritin, Serum 47 ng/mL (Normal) Range: 15-150 Sed Rate Erythrocyte (08726) Comments: PATIENT NOT FASTINGPERFORMED BY: [facility] [id number] Sedimentation Rate-Westergren 2 mm/h (Normal) Range: 0-32 : MICROALBUMIN: CREATININE RATIO Comments: PATIENT NOT FASTINGPERFORMED BY: [address] [id number] (81920) AND (50216) Microalb/Creat Ratio 129.6 {mg/g_creat} (Abnormal) Range: 0.0-30.0 Microalbumin, Urine 97.3 ug/mL (Abnormal) Range: 0.0-17.0 Creatinine, Urine 75.1 mg/dL (Normal) Range: 15.0-278.0 TSH (30131) Comments: PATIENT NOT FASTINGPERFORMED BY: [facility] [id number] TSH 6.780 {uIU/mL} (Abnormal) Range: 0.450-4.500 METABOLIC PANEL, COMPREHENSIVE Comments: PATIENT NOT FASTINGPERFORMED BY: [place] [address]378[address] [facility] [id number] (33871) ALT (SGPT) 40 [iU]/L (Abnormal) Range: 0-32 [...] Glucose, Serum 78 mg/dL (Normal) Range: 65-99 83-Ata-743428:00 CBC with auto diff Comments: PATIENT NOT FASTINGPERFORMED BY: KEVIN LabCoClara Maass Medical CenterAamjze2658 [facility] [id number] Information: [id number] (00106) Immature Grans (Abs) 0.0 {x10E3/uL} (Normal) Range: [...] 3.77-5.28 WBC 7.9 {x10E3/uL} (Normal) Range: 3.4-10.8 64-Klu-240727:53 Serum Creatinine AND GFR Comments: [facility] [address] [place], [address] EST GFR - AA 62 mL/min (Normal) Comments: GFR Calc EST GFR 51 mL/min (Abnormal) Comments: Non- GFR Calc CREAT,SERUM 1.21 mg/dL (Abnormal) Range: 0.55-1.20 Comments: The validity of the calculated GFR AND GFRAA in patients over70 years has not been determined. Clinical correlation isessential. :41 URINE EDWARD CULTURE-SHANAE COL Comments: PATIENT NOT FASTINGPERFORMED BY: [employer] [facility] [id number] Information: SRC:[facility] [id number] COUNT (70178) Result 1 MUG (Normal) Comments: Mixed urogenital flora10,000-25,000 colony forming units per mL Urine Final report (Normal) Culture,Comprehensive :51 COMPLEMENT, TOTAL (CH50) Comments: PATIENT NOT FASTINGPERFORMED BY: [employer] [facility] [id number] Information: [id number] (87759) Complement, Total (CH50) 59 U/mL (Normal) Range: 42-62 :52 COMPLEMENT C4 (59417) Comments: PATIENT NOT FASTINGPERFORMED BY: Pulse TechnologiesClara Maass Medical CenterNpkwln792[address] [place] [address] [id number] Complement C4, Serum 28 {mg/dL_Adult} (Normal) Range: 9-36 :52 COMPLEMENT C3 (99414) Comments: PATIENT NOT FASTINGPERFORMED BY: CB [place] 9878470 [facility] [id number] Complement C3, Serum 118 {mg/dL_Adult} (Normal) Range: 90-180 :52 CBC, Platelets & Auto Comments: PATIENT NOT FASTINGPERFORMED BY: KEVIN [facility] [id number] Information: [id number] Diff (36286) Immature Grans (Abs) 0.0 {x10E3/uL} (Normal) Range: [...] Panel, Comprehensive Comments: PATIENT NOT FASTINGPERFORMED BY: [facility] [id number] (34158) ALT (SGPT) 13 [iU]/L (Normal) Range: 0-32 [...] Glucose, Serum 82 mg/dL (Normal) Range: 65-99 16-Xsn-727217:28 URINE EDWARD CULTURE-IDENTIFICATN Comments: PATIENT NOT FASTINGPERFORMED BY: [employer] SalesconxFormerly [facility], [facility] [id number] (03244) Result 1 MUG (Normal) Comments: Mixed urogenital flora50,000-100,000 colony forming units per mL Urine Final report (Normal) Culture,Comprehensive 11-Npy-637763:28 MICROALBUMIN: CREATININE Comments: PATIENT NOT FASTINGPERFORMED BY: [employer] SalesconxFormerly [facility], [facility] [id number] Information: [id number] RATIO (40226) AND (29220) Microalb/Creat Ratio 125.4 {mg/g_creat} (Abnormal) Range: 0.0-30.0 Microalbumin, Urine 224.4 ug/mL (Abnormal) Range: 0.0-17.0 Creatinine, Urine 179.0 mg/dL (Normal) Range: 15.0-278.0 52-Tal-768550:08 Urinalysis, Office (25969) UA - LEUKOCYTE ESTERASE Negative (Normal) UA - NITRITE Negative (Normal) URINE UROBILINGN SHANAE TIMED Normal mg/dL (Normal) UA - PROTEIN 100 mg/dL (Normal) UA - PH 6.5 (Normal) UA - BLOOD Non Hemolyzed Moderate (Normal) UA - SPECIFIC GRAVITY 1.030 (Abnormal) UA - KETONES Negative mg/dL (Normal) UA - BILIRUBIN Negative (Normal) UA - GLUCOSE Negative (Normal) 4-Taw-985632:59 Free T3 Comments: Test performed at:[facility] [address] [place] [address] FREE T3 2.2 pg/mL (Normal) Range: 2.18-3.98 4-Mqp-105106:59 T4 Free Direct Comments: Test performed at:[facility] [address] [place] [address] T4 FREE DIRECT 1.00 ng/dL (Normal) Range: 0.76-1.46 5-Ore-190179:59 Thyroid Peroxidase AB Comments: Test performed at:[facility] [address] [place] [address] TPO AB 6676 8 {IU/mL} (Normal) Range: 0-34 Comments: Performed at: - LabCo[address] [id number] Director: West Spivey PhD, Phone: [phone] 5-Ikf-677514:59 Thyroid Stim Hormone (TSH) Comments: Test performed at:[facility] Oxvjinuctt[address] [place] [address] TSH 2.15 {uIU/mL} (Normal) Range: 0.358-3.74 13-Rge-036336:51 Microscopic Examination Comments: PATIENT NOT FASTINGPERFORMED BY: [facility] Gchlxe3685 [address] [facility] [place] [id number] Bacteria Few (Normal) Mucus Threads Present (Normal) Epithelial Cells (non renal) 0-10 {/hpf} (Normal) Range: 0 - 10 RBC 0-2 {/hpf} (Normal) Range: 0 - 2 WBC 0-5 {/hpf} (Normal) Range: 0 - 5 23-Gvp-055027:51 Thyroxine (T4) Free, Comments: PATIENT NOT FASTINGPERFORMED BY: [facility] Sdteba0205 [facility] [id number] Information: [id number] Direct, S T4,Free(Direct) 1.02 ng/dL Range: 0.82-1.77 (Normal) 28-Feb-2015 Triiodothyronine,Free,Seru 2.3 pg/mL (Normal) Comments: PATIENT NOT FASTINGPERFORMED BY: [facility] Aivvzx5750 [address] [id number] 10:51 m Range: 2.0-4.4 28-Feb-2015 Written Authorization WAR (Normal) Comments: PATIENT NOT FASTINGPERFORMED BY: [facility] Aijpnw1826 [address] [id number] 10:51 Comments: Written Authorization Received.Authorization received from HILLARY RUSSELL [id number] by Mary Christensen 37-Zll-440317:51 Creatine Kinase Total (69521) Comments: PATIENT NOT FASTINGPERFORMED BY: [facility] Aukpxi0656 [facility] [id number] Creatine Kinase,Total,Serum 122 U/L (Normal) Range: 24-173 30-Tji-446341:51 CALCIFIDIOL (92627) VIT D 25 Comments: PATIENT NOT FASTINGPERFORMED BY: [facility] Rvxdux4027 [facility] [id number] Vitamin D, 25-Hydroxy 28.8 ng/mL (Abnormal) Range: 30.0-100.0 Comments: Vitamin D deficiency has been defined by the [place] of[place]icine and an Endocrine Society practice guideline as alevel of serum 25-OH vitamin D less than 20 ng/mL (1,2).The Endocrine Society went on to further define vitamin Dinsufficiency as a level between 21 and 29 ng/mL (2).1. IOM ([place] of [employer]). 2010. Dietary reference intakes for calcium and D. [place]: The National Academies Press.2. Chriss MF, Ez MUSE, Kilo MCCORMICK, et al. Evaluation, treatment, and prevention of vitamin D deficiency: an Endocrine Society clinical practice guideline. JCEM. 2010; 96(7):1911-30. 47-Pqh-231503:51 TSH (51876) Comments: PATIENT NOT FASTINGPERFORMED BY: [employer]6370 [employer] [place] [id number] TSH 4.840 {uIU/mL} (Abnormal) Range: 0.450-4.500 :51 URINALYSIS, W/ MICRO (63981) Comments: PATIENT NOT FASTINGPERFORMED BY: [employer]70 Redeem&GetFormerly [facility], [facility] [id number] Microscopic Examination See below: (Normal) Comments: Microscopic was indicated and was performed. Microscopic Examination MICRON (Normal) Comments: Microscopic follows if indicated. Nitrite, Urine Negative (Normal) Urobilinogen,Semi-Qn 0.2 mg/dL (Normal) Range: 0.0-1.9 Bilirubin Negative (Normal) Occult Blood Negative (Normal) Ketones Negative (Normal) Glucose Negative (Normal) Protein Trace (Normal) WBC Esterase Negative (Normal) Appearance Clear (Normal) Urine-Color Yellow (Normal) pH 7.0 (Normal) Range: 5.0-7.5 Specific Sterrett 1.018 (Normal) Range: 1.005-1.030 :51 METABOLIC PANEL, COMPREHENSIVE Comments: PATIENT NOT FASTINGPERFORMED BY: [employer]70 Redeem&GetFormerly [facility], [facility] [id number] (26720) ALT (SGPT) 11 [iU]/L (Normal) Range: 0-32 [...] Glucose, Serum 86 mg/dL (Normal) Range: 65-99 61-Diu-121880:51 CBC with auto diff Comments: PATIENT NOT FASTINGPERFORMED BY: [facility] Vpcffb2783 [address] [id number] Information: [id number] (39651) Immature Grans (Abs) 0.0 {x10E3/uL} (Normal) Range: [...] 3.77-5.28 WBC 4.7 {x10E3/uL} (Normal) Range: 3.4-10.8 39-Ncj-396640:46 Metabolic Panel, Basic Comments: PATIENT NOT FASTINGPERFORMED BY: [employer] FX [facility]North[facility] [id number] Information: [id number] (79265) Calcium, Serum 9.2 mg/dL (Normal) Range: 8.7-10.2 [...] Glucose, Serum 79 mg/dL (Normal) Range: 65-99 33-Evw-354532:08 CPK 85 U/L (Normal) Range: 26-192 41-Ofg-550514:02 CPKISO tCKBB 0 % (Normal) Comments: Performed at: [facility] Podcast ReadyClara Maass Medical CenterWcrzim66[address] [place] [address] [id number] Director: Emmanuel Cary MD, Phone: [phone] tCKMACI 0 % (Normal) tCKMB 0 % (Normal) Range: 0-3 tCKMM 100 % (Normal) Range: 97-100 tCKMACII 0 % (Normal) tCPK 81 U/L (Normal) Range: 24-173 07-Aif-875459:02 MYOS 52 ng/mL (Normal) Range: 25-58 Comments: Performed at: - [facility] [address] [id number] Director: Emmanuel Cary MD, Phone: [phone] :[phone] BMP CO2 27.0 mmol/L (Normal) Range: [...] 37.1 mg/L (Normal) CREU 191.6 mg/dL (Normal) 22-Rin-975263:42 CPK 3766 U/L (Abnormal) Range: 26-192 :42 CPKISO tCPK 4094 Comments: TEST RESULT LIMITSCK, Total+Isoenzymes, SerumCreatine Kinase,Total,Serum 4094 U/L H 24 - 173CK Isoenzymes:Macro Type 2 0 % Not Observe (Normal) dCK-MM 100 % 97 - 100Macro Type 1 0 % Not ObservedCK-MB 0 % 0 - 3CK-BB 0 % 0 TESTING PERFORMED AT [facility]. ORIGINAL REPORT ONFILE IN LAB CONTAINS ADDITIONAL TEST SITE INFORMATION. 1 MYOS 1188 Range: 25-58 7 ng/mL Comments: Performed at: [address] [id number] Director: Emmanuel Cary MD, Phone: [phone] - (Abnormal D ) e c - 2 0 1 3 1 6 : 4 2 01-Nze-445622:52 MRSAD tMRSA Negative (Normal) SOURCE: NASAL SWAB (Normal) 78-Edr-344225:09 CUV VAC See Note (Normal) Comments: No [...] Comments: NegativeNo Herpes simplex virus isolated.Performed at: [address] [id number] Director: Gee Lord PhD, Phone: [phone] 8-Mma-823032:18 CDIF See Note (Normal) Comments: A positive [...] ng/mL 25 - 58 TESTING PERFORMED AT [facility]. ORIGINAL REPOR T ONFILE IN LAB CONTAINS ADDITIONAL TEST SITE INFORMATION. :41 MISC2 (Normal) Comments: TEST RESULT LIMITSCarnitine, Total and FreeCarnitine, Total 56 umol/L 25 - 69Carnitine, Free 38 umol/L 16 - 60Esterified/Free 0 .5 Ratio 0.1 - 0.9Esterified/Free Ratio is a calculated value equal to TotalCarnitine minus Free Carnitine divided by the FreeCarnitine. _TESTING PERFORMED AT [facility]. ORIGINAL REPORT ONFILE IN LAB CONTAINS ADDITIONAL TEST SITE INFORMATION. :41 ZI 77 ug/dL (Normal) Range: 56-134 Comments: Detection Limit = 5Performed at: [facility] [place], [place] [id number] Director: Gee Lord PhD, Phone: [phone] at: [place] [address] [place], [place] [id number] Director: Ketan Lopez MD, Phone: [phone] 18-Jun-20138:52 Urinalysis, Office (17517) UA - BILIRUBIN Negative (Normal) UA - BLOOD Negative (Normal) UA - GLUCOSE Negative (Normal) UA - KETONES Negative mg/dL (Normal) UA - LEUKOCYTE ESTERASE Negative (Normal) UA - NITRITE Negative (Normal) UA - PH 7.0 (Normal) UA - PROTEIN Trace mg/dL (Normal) UA - SPECIFIC GRAVITY 1.025 (Normal) Comments: 1.030 URINE UROBILINGN SHANAE TIMED Normal mg/dL (Normal) 4-War-473171:13 Pathology Report Comments: PERFORMED BY: KWCYT [facility]CoPaint[facility] Jhqx73576 [facility] [id number] BY: Edmund# [facility]CoPaint[facility] Qyibunlua250 [facility] [id number] 2070Clinical Information: [id number] See MATER Comments: Material submitted: .VULVA BXClinical [...] INRARE MOSTLY INDIVIDUAL SCATTERED LYMPHOCYTES. NO SIGNIFICANT PT25IIBVOUXVYNMBQH IS APPRECIATED. BOTH CD10 AND BCL-6 STAININDIVIDUAL [...] SUBMITTED IN TOTO IN A SINGLE CASSETTE.XJW/BXSCPT .788791, 411023, F85948, Y69213, V04906, T94777, P8 3425, J52054, A18813,E94622, K77995, Z99574, I49315, 895910, 248327 1 HS12G Comments: The specimen submitted does not meet the laboratory'scriteria for acceptability. Refer to [facility]'s Directory ofServices for specimen acceptability criteria.RECEIVED: VIRAL TRANSPORTREQUIRES: SERUMCONTA 1 (Normal) CTED LAURA APPLE AT YOUR FACILITY 0-59-39DWCGVQO: PERFORM 553224 HSV CULTURE WITH TYPINGNegative <0.9Equivocal 0.9 - 1.0Positive >1.0.Note: Negative indicates no antibodies detected - toeither HSV-1 or HSV-2. Equivocal may suggest earlyinfection. If clinically appropriate, retest at alater date. Positive indicates antibodies detectedto HSV-1 and/or HSV-2. M a r - 2 0 1 3 1 2 : 1 7 [id number] CBCD ANC 4.1 3/uL (Normal) Range: 2.0-7.7 [...] 4.2-5.4 WBC 5.8 K/mm3 (Normal) Range: 4.4-11.0 [id number] CKMB CPKMB 1.3 ng/mL (Normal) Range: 0.0-5.0 Comments: CK-MB and RI Interpretation MB Relative Index Non-AMI <or= 5 NA Indeterminate > 5 <or= 4 AMI > 5 > 4 CPK 123 U/L (Normal) Range: 26-192 [id number] CMP GAP 9 (Normal) Range: 5-15 CO2 [...] 7-18 GLU 89 mg/dL (Normal) Range: 70-110 80-Hoy-284449:23 TROP < 0.02 ng/mL (Normal) Comments: TROPONIN-I EXPECTED VALUES <0.05 NEGATIVE 0.06 - 0.59 AT RISK OF IA > OR = 0.60 SUGGEST IA 25-Aug-20120:00 BRAIN W/WO CONTRAST Radiology Report See [...] Lutz M.D.August 25, 2012 at 2:18:09 PM [id number] Signed DN/DN If you are the referring physician and would like to consult with theradiologist who provided th is interpretation, please contact Lorena Velazquez M.D. at [phone]. If this radiologist is unavailable, youwillbe directed to another radiologist to assist. If you are a patient with a question rega rding this report, pleasecontactyour referring physician directly. Professional Interpretation Provided By: mktg, Phone , These documents contain legally protected [...] ofconfusion and difficulty finding words. TECHNIQUE: 3-D [id number]-rbqdkv (TOF) imaging was performed with MIPs.Thestudy was [...] of the anterior cerebral artery. Normal left R4mqtgoxur of the anterior cerebral artery. Normal intact anteriorc ommunicating artery (ACOM). Normal visualized proximal bilateral G7hovyamnx of the anterior cerebral arteries. Normal right [...] is no demonstra mara aneurysm of the [place] of [place], within thetechnical limitations of this modality. No demonstrated hemodynamicallysignificant stenosis or major branch occlusion. IMPRESSION:No significant abnormal ity of visualized intracranial vasculature. Signed:Lorena Lutz M.D.August 25, 2012 at 2:24:09 PM [id number] Signed DN/DN If you are the referring physician and would like to cons ult with theradiologist who provided this interpretation, please contact Lorena Velazquez M.D. at [phone]. If this radiologist is unavailable, youwillbe directed to another radiologist to assist. If you are a patient with a question regarding this report, pleasecontactyour referring physician directly. Professional Interpretation Provided By: mktg, Phone , Thes e documents contain legally [...] on 08/25/121755 Sign by: LORENA LUTZ MD 2-Zrw-644091:19 ANCA tATYPANCA <1:20 {titer} Comments: The atypical pANCA pattern has been observed in asignificant percentage of patients with ulcerative colitis,primary sclerosing cholangitis and autoimmune hepatitis.Performed at: [facility] (Normal) [place], [place] [id number] Director: Katelin Swift MD, Phone: [phone] tANCAP <1:20 {titer} Comments: The presence of positive fluorescence exhibiting P-ANCA orC-ANCA patterns alone is not specific for the diagnosis ofWegener's Granulomatosis (WG) or microscopic polyangiitis.Decisions about treatment sh (Normal) ould not be based solely onANCA IFA results. The International ANCA Group Consensusrecommends follow up testing of positive sera with both MT-3 and MPO-ANCA enzyme immunoassays. As many as 5% serumsamp les are positive only by EIA. Ref. AM J Clin Iebwot2300;111:507-513. tANCAC <1:20 {titer} (Normal) 25-Qev-317412:3 MISC . (Normal) Comments: TEST RESULT LIMITSANCA PanelAntimyeloperoxidase (MPO) Abs < 9.0 U/mL 0.0 - 9.0Antiproteinase 3 (MT-3) Abs < 3.5 U/mL 0.0 - 3.5Cytoplasmic [...] up testing of positive sera with both MT-3and MPO-ANCA enzyme immunoassays. As many as 5% serumsamples are positive only by EIA.Ref. AM J Clin Pathol 1999;111:507-513.Atypical pANCA < 1:20 titer Neg:<1:20The atypical pANCA pattern has been observed in asignificant percentage of patients with ulcerative colitis,primary sclerosing cholangitis and autoimmune hepatitis. TESTING PERFORMED AT [facility]. ORIGINAL REPORT ON FILE IN LAB CONTAINS ADDITIONAL TEST SITE INFORMATION. 37-Hhi-266335:52 BILAT SCRN DIGITAL & CAD Radiology Report [...] Leone M.D.June 30 12 at 4:03:08 PM [id number] Signed GP/GP If you are the referring physician and would like to consult with theradiologist who provided this interpretation, please contact Jeremie moreira M.D. at [phone]. If this radiologist is unavailable, youwill be directed to another radiologist to assist. If you are a patient with a question regarding this report, pleasecontactyour refer ring physician directly. Professional Interpretation Provided By: mktg, Phone , These documents contain legally protected [...] destructionofthese documents. Dictated on 06/30/12 1453 by Adrian EstrellariCasranscribed on 06/30/12 1608 by ITS IMPORTSign by Oni Leone MD on 06/30/12 1609 Sign by: Oni Leone MD 27-May-2012 C3 92 (Normal) Range: 90-180 11:56 Comments: INFCE Result Units: mg/dL AdultPerformed at: [facility] [id number] Director: Katelin Swift MD, Phone: [phone] 27-May-2012 C4 24 (Normal) Range: 9-36 11:56 Comments: INFCE Result Units: mg/dL Adult 92-Dpx-620895:56 CBCD ANC 3.4 3/uL (Normal) Range: 2.0-7.7 [...] 4.2-5.4 WBC 4.4 K/mm3 (Normal) Range: 4.4-11.0 47-Zxz-366613:56 CMP Comments: Interface Comments: VERIFIED DX 03/24/12 AST Order Date: 03/24/12Diagnosis: 782.3 - SYMPTOMS INVOLVING SKIN AND OTHER INTEGUMENTARY TISSUE, EDEMA (782.3)OV Order #: [id number] ID: [id number] ORDERED BMPDR.EVERETT HAS A COPY TO GO TO GAP [...] OTHER INTEGUMENTARY TISSUE, EDEMA (782.3)OV Order #: [id number] ID: [id number] ORDERED BMPDR.EVERETT HAS A COPY TO GO TO Range: 1.8-2.4 :56 PHOS 2.9 mg/dL (Normal) Comments: Interface Comments: VERIFIED DX 03/24/12 AST Order Date: 03/24/12Diagnosis: 782.3 - SYMPTOMS INVOLVING SKIN AND OTHER INTEGUMENTARY TISSUE, EDEMA (782.3)OV Order #: [id number] ID: [id number].DREW ORDERED BMPDRCHELI HAS A COPY TO GO TO Range: 2.5-4.9 :56 PROCRER tPROCRER 207 {mg/g_CRE} (Abnormal) Range: 0-200 PROUR 20.5 mg/dL (Abnormal) CREU 98.9 mg/dL (Normal) :56 PTHIN 63 pg/mL (Normal) Range: 14-72 :56 VITD 43.5 ng/mL (Normal) Range: 30.0-100.0 Comments: Vitamin D deficiency has been defined by the [place] [facility] and an Endocrine Society practice guideline as alevel of serum 25-OH vitamin D less than 20 ng/mL (1,2).The Endocrine Society went on to further define vitamin Dinsufficiency as a level between 21 and 29 ng/mL (2).1. IOM ([place] of Medicine). 2010. Dietary reference intakes for calcium and D. [place]: The National Academies Press.2. Chriss MF, Ez NC, Kilo MCCORMICK, et al. Evaluation, treatment, and prevention of vitamin D deficiency: an Endocrine Society clinical practice guideline. JCEM. 2010; 96(7):1911-30. 2-Yhh-519284:23 CMP Comments: STATRESULTS FAXED TO DR RUSSELL [...] 7-18 GLU 86 mg/dL (Normal) Range: 70-110 8-Zzt-776155:23 CPK 154 U/L (Normal) Comments: STATRESULTS FAXED TO DR RUSSELL 03/24/12 1138 VÍCTOR YOUSSEF. Range: 26-192 61-Fvj-409931:53 ABDOMEN/PELVIS WITHOUT CONT Radiology Report See Note [...] with mild facet and ligamento us hypertrophy auemV1bc S1 with mild foraminal and spinal stenosis. [...] EDTElectronically Signed PF/PF Professional Interpretation Provided By: [facility], , To consult with a radiologist regarding thi s report, please call our [id number] line @ Dictated on 03/13/12 1559 by Nicholas William MDTranscribed on 03/13/121652 by ITS IMPORTSign by Nicholas William MD on 03/13/121652 Sign by: Nicholas William MD 58-Tux-113573:30 Urinalysis, Office (31004) UA - BILIRUBIN Negative (Normal) UA - [...] 7-18 GLU 103 mg/dL (Normal) Range: 70-110 25-Pcv-116255:27 CBCD,SMEAR DIFF RED CELL MORPH SeeNote {NORMAL} [...] 4.2-5.4 WBC 7.1 K/mm3 (Normal) Range: 4.4-11.0 :10 COMP METABOLIC GAP 4 (Abnormal) Range: 5-15 [...] 7-18 GLU 78 mg/dL (Normal) Range: 70-110 89-Puf-633864:10 MITOCHN AB 6650 <20.0 {Units} (Normal) Comments: appt 12-31-11 Range: 0.0-20.0 Comments: Negative 0.0 - 20.0 Equivocal 20.1 - 24.9 Positive >24.9 . Mitochondrial (M2) Antibodies are found in 90-96% of patients with primary biliary cirrhosis.Performed at: [address] [id number] Director: Katelin Swift MD, Phone: [phone] 74-Loi-064731:14 Urinalysis, Office (13838) UA - NITRITE Negative (Normal) URINE UROBILINGN [...] years) 6.0 - 27.0Roche ECLIA methodologyPerformed at: [address] [id number] Director: Katelin Swift MD, Phone: [phone] FSH 4309 4.3 m[iU]/mL Comments: Follicular phase 3.5 - 12.5 Ovulation phase 4.7 - 21.5 Luteal phase 1.7 - 7.7 :46 (Normal) Postmenopausal 25.8 - 134.8 TSH 1.69 {uIU/mL} Range: 0.358-3.74 :21 (Normal) 06-Jtb-605360:52 MONIQUE DIR SEMI-QL MONIQUE DIRECT 36 AU/mL [...] {IU/mL} (Normal) Range: 0-34 Comments: Performed at: [address] [id number] Director: Katelin Swift MD, Phone: [phone] :52 TSH 4.07 {uIU/mL} (Abnormal) Range: 0.358-3.74 :52 VIT D, 46902 42.7 ng/mL (Normal) Comments: appt 09/10/11 Range: [...] 7-18 GLU 69 mg/dL (Abnormal) Range: 70-110 89-Ywt-795469:11 CPK TOTAL 82 U/L (Normal) Range: 26-192 Comments: Please note: Revised Creatinine Kinase (CK) Reference ramge effective 11/15/10. 6-Tax-237074:07 BMP Comments: Please Note: TROPONIN REFERENCE RANGE [...] NEGATIVE 0.06 - 0.59 AT RISK OF IA > OR = 0.60 SUGGEST IA :00 CHEST, PA AND LATERAL Radiology Report [...] Rao on 12/20/102006 Sign by: Lupillo Rao :48 UPPER GI SERIES ONLY Radiology Report See [...] 10/03/10850 by Rin Leoneranscribed on 10/03/10850 by AILEEN EDGEKESSONSign by Adrian Leone on 10/05/10917 Sign by: Oni Leone 27-Sep-2010 H.PYLORI [id number] < 0.9 U/mL Range: 0.0-0.8 8:09 (Normal) Comments: Negative <0.9 Indeterminate 0.9 - 1.0 Positive >1.0Performed at: [address] [id number] Director: Katelin Swift MD, Phone: [phone] Plan of Care Name Dates Details Instructions [...] with (acute) exacerbation Planned Observations LIPID PANEL (84567)Indication: Hypercholesteremia On: 40-Doi-468386:23 Request MICROALBUMIN 24 HOUR OR RANDOM (96438)Indication: Chronic kidney disease, stage III (moderate) On: 61-Kus-756845:19 Request Comments: 24 hour urine for protein T3, FREE (TRIDOTHYRONINE) (67868)Indication: Hypothyroidism (acquired) On: 80-Imr-067366:19 Request T4, FREE (THYROXINE) (21612)Indication: Hypothyroidism (acquired) On: 13-Nzl-431204:19 Request TSH (68020)Indication: Hypothyroidism (acquired) On: 36-Eab-352929:17 Request Comments: do this tsh in mid to late december MICROALBUMIN 24 HOUR OR RANDOM (58872)Indication: IgA nephropathy, chronic On: 46-Epi-210576:14 Request Comments: need 24 hour urine for total protein Urine Protein Electrophoresis (UPEP) (62072)Indication: Chronic kidney disease, stage III (moderate) On: 43-Jgr-411266:11 Request T3, FREE (TRIDOTHYRONINE) (27726)Indication: Abnormal TSH On: : Request T4, FREE (THYROXINE) (83838)Indication: Abnormal TSH On: 69-Kff-248515:01 Request TSH (11041)Indication: Abnormal TSH On: 08-Oeo-734569: Request Anti-TPO Antibody (57515)Indication: Abnormal TSH On: : Request CREATININE BLOOD (70114)Indication: MRI of brain abnormal On: 38-Pxc-84684:59 Request Anti-TPO Antibody (24562)Indication: Hypothyroidism (acquired) On: :49 Request T4, FREE (THYROXINE) (05620)Indication: Hypothyroidism (acquired) On: :49 Request T3, FREE (TRIDOTHYRONINE) (73872)Indication: Hypothyroidism (acquired) On: 9-Vmn-249542:49 Request TSH (78594)Indication: Hypothyroidism (acquired) On: 2-Yki-887845:49 Request URINALYSIS, W/ MICRO (31471)Indication: Hypertensive kidney disease On: 8-Gbk-091209:49 Request MICROALBUMIN: CREATININE RATIO (84623) AND (84918)Indication: Hypertensive kidney disease On: 3-Hfq-386086:49 Request METABOLIC PANEL, COMPREHENSIVE (52272)Indication: Hypertensive kidney disease On: 7-Rul-378464:49 Request CBC W/AUTO DIFF WBC (41704)Indication: Hypertensive kidney disease On: 3-Ohg-080929:49 Request LIPID PANEL (45610)Indication: Hypertensive kidney disease On: 4-Pqf-159214:49 Request MYCOPLAMA PNEUM AB IgG/IgM 524478 (85983)Indication: Cough On: 96-Kqo-951307:41 Request TSH (83663)Indication: Hypothyroidism (acquired) On: 39-Tkm-666699:57 Request CALCIFIDIOL (29784) VIT D 25Indication: CKD (chronic kidney disease) On: 64-Zjo-053920:34 Request TSH (73382)Indication: Hypothyroidism (acquired) On: 65-Osf-276168:34 Request METABOLIC PANEL, COMPREHENSIVE (46783)Indication: CKD (chronic kidney disease) On: 26-Jdm-611458:34 Request CBC with auto diff (76864)Indication: CKD (chronic kidney disease) On: 79-Wek-844905:34 Request T3, FREE (TRIDOTHYRONINE) (86537)Indication: Hypothyroidism (acquired) On: 33-Rbd-626428:40 Request T4, FREE (THYROXINE) (49151)Indication: Hypothyroidism (acquired) On: 45-Qga-220341:40 Request TSH (16633)Indication: Hypothyroidism (acquired) On: 84-Cas-769161:40 Request Anti-TPO Antibody (96754)Indication: Hypothyroidism (acquired) On: 40-Fmk-469806:40 Request T3 UPTAKE (63125)Indication: Abnormal TSH On: 22-Zsi-884697:52 Request T4, TOTAL (35215)Indication: Abnormal TSH On: 77-Owa-557564:52 Request T4, FREE (THYROXINE) (98833)Indication: Abnormal TSH On: 22-Qfm-344825:52 Request TSH (73660)Indication: Abnormal TSH On: 63-Uyc-145663:51 Request T4, FREE (THYROXINE) (95759)Indication: Abnormal TSH On: 79-Sbc-315396:25 Request T3, FREE (TRIDOTHYRONINE) (22185)Indication: Abnormal TSH On: 97-Wln-018687:24 Request MYOGLOBIN (65881)Indication: Rhabdomyolysis (Renamed from Disease characterized by destruction of skeletal muscle) On: 28-Hvr-550901:33 Request CPK TOTAL & ISOENZYMES (99470)Indication: Rhabdomyolysis (Renamed from Disease characterized by destruction of skeletal muscle) On: 78-Ipr-393735:32 Request FECAL OCCULT HGB ASSAY- tubes sent home (56139)Indication: Well woman exam with routine gynecological exam On: 89-Oha-075145:12 Request OCCULT BLOOD FECES SCREEN- card done in office (58562)Indication: Well woman exam with routine gynecological exam On: 81-Vqw-531135:12 Request Thin prep Pap (08696)Indication: Well woman exam with routine gynecological exam On: 02-Xom-162217:12 Request MICROALBUMIN: CREATININE RATIO (09830) AND (45614)Indication: CKD (chronic kidney disease) On: 0-Ypx-614325:02 Request Metabolic Panel, Basic (13094)Indication: Rhabdomyolysis (Renamed from Disease characterized by destruction of skeletal muscle) On: 1-Ivt-724923:53 Request MYOGLOBIN (18492)Indication: Rhabdomyolysis (Renamed from Disease characterized by destruction of skeletal muscle) On: 97-Mrt-083949:04 Request CPK TOTAL & ISOENZYMES (05125)Indication: Rhabdomyolysis (Renamed from Disease characterized by destruction of skeletal muscle) On: 73-Edz-401726:04 Request MRSA Culture (75627)Indication: Decubitus ulcer of coccyx On: 45-Dto-255549:40 Request HSV CULTURE SCREEN 511586 (90287)Indication: Genital ulcer, female On: 50-Hzu-93373:55 Request Culture, Aerobic, Bacterial ID ([id number])Indication: Decubitus ulcer of coccyx On: :39 Request NuSwab STD (STD W/ Herpes) (98379)Indication: Genital ulcer, female On: 14-Ebw-96499:36 Request Comments: intra vaginal area and lesion CULTURE, VAG/CX COMPREHENSIVE (16805)Indication: Genital ulcer, female On: 93-Iju-94194:44 Request CALCIUM SERUM (07941)Indication: Hypocalcemia On: 6-Opm-176880:21 Request LACTATE (LACTIC ACID) (37356)Indication: Muscle pain On: :18 Request Comments: stat ZINC, BLOOD (89867)Indication: Muscle pain On: :17 Request Comments: stat MAGNESIUM (98406)Indication: Muscle pain On: :17 Request Comments: stat Metabolic Panel, Comprehensive (07985)Indication: Muscle pain On: :17 Request Comments: stat MYOGLOBIN (35550)Indication: Muscle pain On: :17 Request Comments: stat CPK TOTAL & ISOENZYMES (70782)Indication: Muscle pain On: :17 Request Comments: stat ASSAY, CARNITINE, SHANAE, EACH SPEC (94906)Indication: Muscle pain On: :14 Request OVA & PARASITE DIR SMEAR (79367)Indication: DIARRHEA On: :06 Request OCCULT BLOOD FECES SCREEN (55364)Indication: DIARRHEA On: :06 Request LEUKOCYTE COUNT, FECAL (52405)Indication: DIARRHEA On: :06 Request C-DIFFICILE, STOOL (94738)Indication: DIARRHEA On: :06 Request EDWARD CULTURE-STOOL (16573)Indication: DIARRHEA On: :06 Request Lyme Disease,Serum, Western Blot (98664)Indication: Neck pain on right side On: : Request Lyme Disease Antibody W/ Reflex (08109)Indication: Neck pain on right side On: :07 Request Herpes Simplex II Ag, Direct Fluorescent Ab (20407)Indication: Uncomplicated herpes simplex On: : Request Herpes Simplex I Ag, Direct Fluorescent Ab (58418)Indication: Uncomplicated herpes simplex On: : Request CBC with manual diff (27449)Indication: Essential hypertension On: 20-Luj-844987:57 Request Metabolic Panel, Comprehensive (32431)Indication: Essential hypertension On: 90-Skn-369723:15 Request Troponin I (04473)Indication: Chest pain On: 46-Kyj-876670:14 Request Comments: stat CPK MB FRACTION (06164)Indication: Chest pain On: 19-Miu-873557:14 Request Comments: stat CREATINE KINASE TOTAL (67796)Indication: Chest pain On: 18-Szx-865979:14 Request Comments: stat ANCA-P (ANTI NEUTROPHIL CYTOPLASMIC ANTIBODY)Indication: Memory loss On: :01 Request ANCA-C (ANTI NEUTROPHIL CYTOPLASMIC ANTIBODY)Indication: Memory loss On: 55-Whw-400394:01 Request Metabolic Panel, Basic (25338)Indication: Edema, unspecified On: :01 Request Creatine Kinase Total (80018)Indication: Rhabdomyolysis (Renamed from Disease characterized by destruction of skeletal muscle) On: :27 Request Metabolic Panel, Comprehensive (19209)Indication: Rhabdomyolysis (Renamed from Disease characterized by destruction of skeletal muscle) On: :26 Request Metabolic Panel, Comprehensive (11033)Indication: Pruritic disorder On: :01 Request Potassium Serum (87530)Indication: Hypokalemia On: :47 Request Comments: STAT Calcium Serum (05405)Indication: Hypokalemia On: :47 Request Comments: STAT MAGNESIUM (68822)Indication: Hypokalemia On: :52 Request CBC with manual diff (48979)Indication: Fatigue On: :42 Request Metabolic Panel, Comprehensive (47403)Indication: Hypokalemia On: :41 Request ANTIMITOCHONDRIAL ANTIBODY (06536)Indication: Pruritic disorder On: :52 Request METABOLIC PANEL, COMPREHENSIVE (92895)Indication: Pruritic disorder On: :47 Request CBC WITH MANUAL DIFF (34200)Indication: Pruritic disorder On: :47 Request CREATININE CLEARANCE (72522)Indication: Chronic kidney disease, stage III (moderate) On: :48 Request 24 hour urine for Protein (52618)Indication: Chronic kidney disease, stage III (moderate) On: :48 Request Metabolic Panel, Basic (24530)Indication: Chronic kidney disease, stage III (moderate) On: 20-Fhu-545175:36 Request MICROALBUMIN: CREATININE RATIO (14500) AND (99744)Indication: Chronic kidney disease, stage III (moderate) On: 46-Vbn-563460:33 Request ESTRADIOL (54558)Indication: Fatigue On: :58 Request TSH (THYROID STIMULATING HORMONE) (99572)Indication: Abnormal TSH On: 94-Yvo-529800:19 Request Comments: check in 8 weeks TSH (80385)Indication: Abnormal TSH On: 27-Ily-708961:48 Request Anti-TPO Antibody (44391)Indication: Abnormal TSH On: :48 Request DNA ANTIBODY-NATV/DBL ST (16909) test code 442221Syxkeygjff: Fatigue On: :47 Request Vitamin D Hydroxy (16895)Indication: Fatigue On: :47 Request VITAMIN B-12 (CYANOCOBALAMIN) (94826)Indication: Fatigue On: :47 Request URINALYSIS, W/ MICRO (07769)Indication: Fatigue On: :47 Request METABOLIC PANEL, COMPREHENSIVE (03093)Indication: Fatigue On: Request CBC WITH MANUAL DIFF (06151)Indication: Fatigue On: 47 Request MONIQUE (ANTINUCLEAR ANTIBODY) (30654)Indication: Fatigue On: Request C-REACTIVE PROTEIN (25258)Indication: Fatigue On: :46 Request SED RATE ERYTHROCYTE (36610)Indication: Fatigue On: : Request T4, FREE (THYROXINE) (80870)Indication: Abnormal TSH On: : Request T3, FREE (TRIDOTHYRONINE) (80841)Indication: Abnormal TSH On: :30 Request TSH (01984)Indication: Abnormal TSH On: :30 Request Potassium Serum (20779)Indication: Hypokalemia On: :20 Request Metabolic Panel, Comprehensive (04177)Indication: Rhabdomyolysis (Renamed from Disease characterized by destruction of skeletal muscle) On: :19 Request Creatine Kinase Total (24671)Indication: Rhabdomyolysis (Renamed from Disease characterized by destruction of skeletal muscle) On: :19 Request D-Dimer (10582)Indication: Chest pain On: :28 Request CBC (Auto) (08104)Indication: Chest pain On: :28 Request Metabolic Panel, Basic (05583)Indication: Chest pain On: :28 Request CARDIAC ISOENZYMES (00567)Indication: Chest pain On: :28 Request HELICOBACTER PYLORI ANTIBODY (91492)Indication: Abdominal pain, acute, generalized On: :55 Request Planned Procedures Spirometry (17457)By: Gerry STRANGE, On: 10-Jun-2018 Intent Rosalinda Paris DO Comments: normal ELECTROCARDIOGRAM, COMPLETE (ECG) On: 10-Jun-2018 Intent (25400)By: Rosalinda Garrett DO Comments: nsr no acute chg Rosalinda Garrett DO Radiology - Chest- PA and LatBy: On: 30-Oct-2017 Intent Gerry DO, Rosalinda Gerry DO, Rosalinda Breast Ultrasound - LeftBy: Gerry On: 02-Oct-2017 Intent DO, Rosalinda Gerry DO, Rosalinda Spot Compression - LeftBy: Gerry On: 02-Oct-2017 Intent DO, Rosalinda Gerry DO, Rosalinda Spot Compression - RightBy: Gerry On: 02-Oct-2017 Intent DO, Rosalinda Gerry DO, Rosalinda Comments: if needed Breast Ultrasound - RightBy: On: 02-Oct-2017 Intent Gerry DO, Rosalinda Gerry DO, Comments: if needed Rosalinda SCREENING DIGITAL TOMOSYNTHESIS OF On: 02-Oct-2017 Intent BREAST (66692)By: Rosalinda Garrett DO, DO, Kathleen ATTENDED SLEEP STUDY (27088)By: On: 20-Jun-2017 Intent Amy Gonzalez CNP E SCREENING DIGITAL TOMOSYNTHESIS OF On: 11-Apr-2017 Intent BREAST (62784)By: Rosalinda Garrett DO, DO, Kathleen MRA OF BRAIN (23020)By: Gerry STRANGE, On: 19-Mar-2017 Intent Rosalinda Paris DO MRI BRAIN W/ CONTRAST (62895)By: On: 19-Mar-2017 Intent Rosalinda Garrett DO Gerry DORosalinda ELECTROCARDIOGRAM, COMPLETE (ECG) On: 19-Mar-2017 Intent (23130)By: Rosalinda Garrett DO Comments: nsr no acute chg Gerry DORosalinda Spirometry (01970)By: Gerry STRANGE, On: 19-Mar-2017 Intent Rosalinda Paris DO Comments: see scanned report Ultrasound - PelvisBy: Gerry STRANGE, On: 20-Feb-2017 Intent Rosalinda Paris DO Spirometry (43869)By: Gerry STRANGE, On: 05-Dec-2016 Intent Rosalinda Paris DO Comments: normal Aerosol Treatment (58802)By: On: 05-Dec-2016 Intent Rosalinda Garrett DO, DO, Comments: Albuterol 0.83% given via nebulizer machine. Pt tolerated well.less noise and more a/e Rosalinda Solu- Medrol Injection, 125mg On: 05-Dec-2016 Intent (J2930)By: Rosalinda Garrett DO Comments: 2 ml given im rt glut lot [id number] exp 05/05 Rosalinda Garrett DO Radiology - Cervical SpineBy: On: 26-Mar-2016 Intent Hillary Russell MD Phenergan Injection, up to 50 mg On: 26-Mar-2016 Intent (J2550)By: Hillary Russell MD Toradol Injection, 30 mg On: 26-Mar-2016 Intent (J1885)By: Hillary Russell MD Kenalog Injection, 10 mgm On: 12-Feb-2016 Intent (J3301)By: Hillary Russell MD NEUROPSYCHOLOGICAL TESTING On: 29-Nov-2015 Intent (70157)By: Hillary Russell MD MRI - Brain (IV Contrast On: 31-Oct-2015 Intent Needed)By: Hillary Russell MD Ultrasound - RenalBy: Lisa CONDE, On: 05-Sep-2015 Intent Amy Joseph Eprescribed prescriptions On: 31-Mar-2014 Intent (G8553)By: Amy Gonzalez CNP MAMMOGRAM, SCREENING, BOTH BREASTS On: 03-Feb-2014 Intent (16739)By: Hillary Russell MD Radiology - ChestBy: Drew MARTÍNEZ, On: 01-Feb-2014 Intent Hillary Peng Aerosol Treatment (09403)By: Lisa On: 25-Jan-2014 Intent Amy CONDE Ultrasound - Abdomen Complete & On: 24-Nov-2013 Intent PelvisBy: Amy Gonzalez CNP Eprescribed prescriptions On: 17-Aug-2013 Intent (G8553)By: Long OPERATIONS CONTROLLER, Marisela L INFUSION, NORMAL SALINE SOLUTION , On: 18-Jun-2013 Intent 1000 CC (Special Coverage Comments: Normal Saline, Lot #[id number], exp. 10/01 1 ltr infused in L AC without difficulty, Instructions Apply. See MCM: 2049) (J7030)By: Amy Gonzalez CNP HYDRATION IV INFUSION, INIT On: 18-Jun-2013 Intent (34461)By: Amy Gonzalez CNP Comments: IV initiated in: R ACwith 22 gaugenumber of attempts: x1 attempt without difficultyTolerated well: MAMTA Elizabeth Eprescribed prescriptions On: 16-Mar-2013 Intent (G8553)By: Marisela Mata LPN Eprescribed prescriptions On: 25-Jan-2013 Intent (G8553)By: Marisela Mata LPN Eprescribed prescriptions On: 15-Jan-2013 Intent (G8553)By: Marisela Mata LPN Toradol Injection, 30 mg On: 24-Nov-2012 Intent (J1885)By: Hillary Russell MD Comments: Lot #[id number]-7/14Site-right hipDose- 30mlgiven by: Didier Farrar LPN Eprescribed prescriptions On: 24-Nov-2012 Intent (G8553)By: Marisela Mata LPN EKG (42991)By: Isac OLEARY, On: 09-Sep-2012 Intent Saida Comments: sinus rhythm no changes compared to 03-24 Pulse Oximetry ([id number])By: Isac On: 09-Sep-2012 Intent Saida OLEARY Comments: 99% on room air MRA - brainBy: Hillary Russell MD On: 14-Aug-2012 Intent MRI - Brain (IV Contrast On: 14-Aug-2012 Intent Needed)By: Hillary Russell MD Eprescribed prescriptions On: 14-Aug-2012 Intent ([id number])By: Liberty Choi LPN TDAP VACCINE >7 IM ([id number])By: On: 25-Jun-2012 Intent Hillary Russell MD Comments: Lot #[id number]-left deltoidgiven by: Didier Farrar LPN MAMMOGRAM, SCREENING, BOTH BREASTS On: 25-Jun-2012 Intent ([id number])By: Hillary Russell MD EKG ([id number])By: Hillary Russell MD On: 24-Mar-2012 Intent Comments: see scanned document of test done to see results reviewed today with patient Pulse Oximetry ([id number])By: Lupillo, On: 24-Mar-[address] - Abdomen & Pelvis Stone On: 13-Mar-2012 Intent ProtocolBy: Amy Gonzalez CNP Nerve ConductionBy: Isac OLEARY, On: 06-Jan-2012 Intent Saida EMGBy: Saida Chau LPN On: 06-Jan-2012 Intent Solu -Medrol Injection, 125 mg On: 03-Jan-2012 Intent ([id number])By: Saida Chau LPN Comments: Lot #[id number]-right hipDose- 125 mggiven by: Didier Farrar LPN Radiology - ChestBy: Drew MARTÍNEZ, On: 20-Dec-2010 Intent Hillary Peng Pulse Oximetry ([id number])By: Lupillo On: 20-Dec-2010 Intent JAMAR EKG ([id number])By: JAMAR Wesley On: 20-Dec-2010 Intent UGI (With [...] Hypokalemia : DISCONTINUED - METABOLIC PANEL, BASIC (58257) Indication: Hypokalemia BMI 25.0-25.9,adult : How to [...] be. Was recently i n sun at [place]. Has underlying autoimmune followed by Dr. Newsome [...] (728.88), WWV V73.21 [facility] Payers [facility] [place]; a guarantor
--- OUTSIDE RECORDS SUMMARY | 2018-12-12 19:09 | XMS RPT_ITS ---
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 / Community M06.4(ICD-10) Hospital Repository 10/19/2018 Unknown Z79.899 - Other long Vellanki, Re Active [facility] term (current) drug Community therapy / Hospital Z79.899(ICD-10) Repository 10/19/2018 Unknown M79.7 - Fibromyalgia Vellanki, Re Active [place] / M79.7(ICD-10) Community Hospital Repository 10/19/2018 Unknown I73.00 - Raynaud's Vellanki, Re Active [facility] syndrome without Community gangrene / Hospital I73.00(ICD-10) Repository 10/19/2018 Unknown R53.82 - Chronic Re López Active [place] fatigue, unspecified Community / R53.82(ICD-10) Hospital Repository 10/19/2018 Unknown E03.9 - Re Lóepz Active [place] Hypothyroidism, Community unspecified / Hospital E03.9(ICD-10) Repository 10/19/2018 Unknown G43.909 - Migraine, Re López Active [place] unspecified, not Community intractable, without Hospital status migrainosus / Repository G43.909(ICD-10) 10/19/2018 Unknown Z87.11 - Personal Re López Active [facility] history of peptic Community ulcer disease / Hospital Z87.11(ICD-10) Repository PROCEDURES PROCEDURES No Procedure Records FoundRESULTS RESULTS COMPREHENSIVE METABOLIC Collected: 10/19/2018 Status: F Source: [place] PROFIL 12:40 PM [facility] REPOSITORY TYPE CODE TESTS RESULT OUT OF RANGE REFERENCE UNITS LAB L501.0100 74-106 mg/dL Normal GLU 85 Result Comment: Please note revised GLUCOSE reference range effective 2017. LAB L501.1000 7-18 mg/dL Normal BUN 18 LAB L501.1100 0.55-1.02 mg/dL High CREAT,SERUM 1.27 Result Comment: The validity of the calculated GFR AND GFRAA in patients over 70 years has not been determined. Clinical correlation is essential. LAB L501.1110 >60 mL/min Low EST GFR 48 Result Comment: Non- GFR Calc LAB L501.1115 >60 mL/min Low EST GFR - AA 58 Result Comment: GFR Calc LAB L501.1300 10-20 RATIO Normal BUN/CRE 14.2 LAB L501.1500 6.4-8.2 g/dL T Normal PROT 6.8 LAB L501.1800 3.2-5.0 g/dL Normal ALB 3.5 LAB L501.1950 2.2-4.2 g/dL Normal GLOB 3.3 LAB L501.2000 0.9-2.4 RATIO Normal A/G 1.1 LAB L501.2200 8.5-10.1 mg/dL CA Normal 8.5 LAB L501.4100 15-37 U/L Normal AST 20 LAB L501.4305 45-117 U/L Normal ALK P 65 LAB L501.4405 13-56 U/L Normal ALT 21 LAB L501.4600 0.20-1.00 mg/dL T Normal BILI 0.50 LAB L501.5300 136-145 mmol/L NA Normal 142 LAB L501.5600 3.5-5.1 mmol/L K Normal 3.5 LAB L501.5900 98-107 mmol/L CL Normal 106 LAB L501.6100 21.0-32.0 mmol/L Normal CO2 27.0 LAB L501.6200 5-15 Normal GAP 9 Performed By: #### L500.4050 #### [facility] [address] [place], [address] ERYTHROCYTE SED RATE Collected: 09/17/2018 Status: F Source: [place] 2:19 PM [facility] REPOSITORY TYPE CODE TESTS RESULT OUT OF RANGE REFERENCE UNITS LAB L102.0000 0-20 mm/hr Normal SED RATE 2 Performed By: #### L101.9900, L100.0100 #### [facility] [address] [place], [address] CBC W/DIFF, AUTOMATED Collected: 09/17/2018 Status: F Source: [place] 2:19 PM [facility] REPOSITORY TYPE CODE TESTS RESULT OUT OF RANGE REFERENCE UNITS LAB L100.1000 4.4-11.0 K/mm3 Normal WBC 6.3 LAB L100.1200 4.2-5.4 M/mm3 Normal RBC 4.38 LAB L100.1300 12.0-15.0 g/dl Normal HGB 13.9 LAB L100.1400 37-47 % Normal HCT 42.0 LAB L100.1500 81-99 fL Normal MCV 95.9 LAB L100.1600 27.0-32.0 pg Normal MCH 31.7 LAB L100.1700 32-36 g/gl Normal MCHC 33.1 LAB L100.1810 11.6-14.6 % Normal RDW CV 12.6 LAB L100.1820 35.1-43.9 fl Normal RDW SD 43.6 LAB L100.1900 150-450 K/mm3 Normal PLT 248 LAB L100.2000 6.2-12.0 fl Normal MPV 10.1 LAB L100.2100 47-70 % High NEUT% 71.9 LAB L100.2200 19-41 % Low LY% 17.7 LAB L100.2300 0-10 % Normal MONO% 8.4 LAB L100.2400 0-5 % Normal EO% 1.1 LAB L100.2500 0-1 % Normal BASO% 0.3 LAB L100.2550 0.0-0.9 % Normal IM GRAN % 0.600 Result Comment: IG% - Immature Granulocytes (promyelocytes, myelocytes and metamyelocytes) > 1% indicates that a LEFT SHIFT is Present. LAB L100.2620 2.0-7.7 X10 3/uL Normal Absolute Neut 4.5 LAB L100.2720 0.83-4.51 X10 3/ul Normal Absolute Lymph 1.12 Performed By: #### L101.9900, L100.0100 #### [facility] [address] [place], [address] URINALYSIS, ROUTINE Collected: 09/17/2018 Status: F Source: [place] (DIPSTICK) 2:19 PM [facility] REPOSITORY Order Comment: How was Urine Obtained? CLEAN CATCH TYPE CODE TESTS RESULT OUT OF RANGE REFERENCE UNITS LAB L400.3000 Yellow COLOR Normal Yellow LAB L400.3050 Clear Normal CLARITY Clear LAB L400.3200 Normal mg/dl Normal GLUCOSE, UR Normal LAB L400.3300 Negative mg/dL Normal BILIRUBIN URINE Negative LAB L400.3400 Negative mg/dl Normal KETONE UR Negative LAB L400.3465 1.002-1.030 Normal SP.GR. DIPSTX 1.010 LAB L400.3550 5.0 - 8.0 pH UR Normal 6.5 LAB L400.3600 Negative mg/dl PROT Normal DIPSTX Negative LAB L400.3700 Normal mg/dl Normal UROBILI Normal LAB L400.3750 Negative Normal NITRITE UR Negative LAB L400.3780 Negative /ul High 10 OCCULT BLOOD-UR LAB L400.3800 Negative /ul LEUK Normal ESTERASE Negative Performed By: #### L400.2010 #### [facility] [address] [place], [address] PROTEIN+CREATININE Collected: Status: F Source: [place] RATIO,URINE 09/17/2018 2:19 PM [facility] REPOSITORY TYPE CODE TESTS RESULT OUT OF RANGE REFERENCE UNITS LAB L501.1200 NO RANGE EST. mg/dL Normal UR CREAT 49.10 LAB L501.1930 <11.9 mg/dL Normal 11.5 PROTEIN,UR.R AN. LAB L501.1940 0-200 mg/g CRE High PROT:CRE 234 RATIO Performed By: #### L501.0900 #### [facility] [address] [place], [address] COMPREHENSIVE METABOLIC Collected: 09/17/2018 Status: F Source: [place] PROFIL 2:19 PM [facility] REPOSITORY TYPE CODE TESTS RESULT OUT OF RANGE REFERENCE UNITS LAB L501.0100 74-106 mg/dL Normal GLU 79 Result Comment: Please note revised GLUCOSE reference range effective 2017. LAB L501.1000 7-18 mg/dL Normal BUN 14 LAB L501.1100 0.55-1.02 mg/dL High CREAT,SERUM 1.19 Result Comment: The validity of the calculated GFR AND GFRAA in patients over 70 years has not been determined. Clinical correlation is essential. LAB L501.1110 >60 mL/min Low EST GFR 52 Result Comment: Non- GFR Calc LAB L501.1115 >60 mL/min Normal EST GFR - AA 62 Result Comment: GFR Calc LAB L501.1300 10-20 RATIO Normal BUN/CRE 11.8 LAB L501.1500 6.4-8.2 g/dL T Normal PROT 7.2 LAB L501.1800 3.2-5.0 g/dL Normal ALB 3.7 LAB L501.1950 2.2-4.2 g/dL Normal GLOB 3.5 LAB L501.2000 0.9-2.4 RATIO Normal A/G 1.1 LAB L501.2200 8.5-10.1 mg/dL CA Normal 8.5 LAB L501.4100 15-37 U/L Normal AST 15 LAB L501.4305 45-117 U/L Normal ALK P 64 LAB L501.4405 13-56 U/L Normal ALT 22 LAB L501.4600 0.20-1.00 mg/dL T Normal BILI 0.40 LAB L501.5300 136-145 mmol/L NA Normal 141 LAB L501.5600 3.5-5.1 mmol/L K Normal 3.7 LAB L501.5900 98-107 mmol/L CL Normal 107 LAB L501.6100 21.0-32.0 mmol/L Normal CO2 26.0 LAB L501.6200 5-15 Normal GAP 8 Performed By: #### L500.4050, L501.6710, L505.7010 #### [facility] [address] [place], [place], [id number] CRP Collected: 09/17/2018 Status: F Source: [place] 2:19 PM [facility] REPOSITORY TYPE CODE TESTS RESULT OUT OF RANGE REFERENCE UNITS LAB L501.6710 0.0-3.0 mg/L Normal < 2.90 C-REACTIVE PROT Result Comment: C-Reactive Protein (CRP) provides useful information for the diagnosis, therapy and monitoring of inflammatory processes and associated diseases. For the evaluation of Relative Risk for Cardiovascular Disease, a High Sensitivity CRP (HSCRP) should be ordered. Performed By: #### L500.4050, L501.6710, L505.7010 #### [facility] [place], [address] RHEUMATOID FACTOR Collected: 09/17/2018 Status: F Source: [place] 2:19 PM [facility] REPOSITORY TYPE CODE TESTS RESULT OUT OF RANGE REFERENCE UNITS LAB L505.7010 <15 IU/mL Normal RHEUMATOID FAC < 10.0 Performed By: #### L500.4050, L501.6710, L505.7010 #### [facility] [address], [address] ANTINUCLEAR ANTIBODIES Collected: 09/17/2018 Status: F Source: [place] DIRECT 2:19 PM [facility] REPOSITORY TYPE CODE TESTS RESULT OUT OF RANGE REFERENCE UNITS LAB L3100.5475 Negative Normal Negative MONIQUE-DIRECT Result Comment: Performed at: [address] [id number] Supervisor Fleshing: West Spivey PhD, Phone: [phone] Performed By: #### L3100.5475, L3100.5500, L3100.9100, L3410.0500, L3410.0700, L3410.1110, L3410.4010 #### [facility] (refer to report for specific site) refer to report for address and phone number ANTI-DSDNA AB Collected: 09/17/2018 Status: F Source: [place] 2:19 PM [facility] REPOSITORY TYPE CODE TESTS RESULT OUT OF RANGE REFERENCE UNITS LAB L3100.5500 0-9 IU/mL Normal dsDNA AB <1 Result Comment: Negative <5 Equivocal 5 - 9 Positive >9 Performed By: #### L3100.5475, L3100.5500, L3100.9100, L3410.0500, L3410.0700, L3410.1110, L3410.4010 #### [facility] (refer to report for specific site) refer to report for address and phone number SJOGREN'S ANTIBODIES Collected: 09/17/2018 Status: F Source: [place] A/B 2:19 PM [facility] REPOSITORY TYPE CODE TESTS RESULT OUT OF RANGE REFERENCE UNITS LAB L3100.9200 0.0-0.9 AI Normal Anti-SS-A < 0.2 LAB L3100.9300 0.0-0.9 AI Normal Anti-SS-B < 0.2 Performed By: #### L3100.5475, L3100.5500, L3100.9100, L3410.0500, L3410.0700, L3410.1110, L3410.4010 #### [facility] (refer to report for specific site) refer to report for address and phone number ANTI-JOHN Collected: 09/17/2018 Status: F Source: [place] 2:19 PM [facility] REPOSITORY TYPE CODE TESTS RESULT OUT OF RANGE REFERENCE UNITS LAB L3410.0500 0.0-0.9 AI Normal ANTI-JOHN <0.2 Performed By: #### L3100.5475, L3100.5500, L3100.9100, L3410.0500, L3410.0700, L3410.1110, L3410.4010 #### [facility] (refer to report for specific site) refer to report for address and phone number [id number] AB Collected: Status: F Source: [place] 09/17/2018 2:19 PM [facility] REPOSITORY TYPE CODE TESTS RESULT OUT OF RANGE REFERENCE UNITS LAB L3410.0700 0.0-0.9 AI Normal ANTISCLER <0.2 Performed By: #### L3100.5475, L3100.5500, L3100.9100, L3410.0500, L3410.0700, L3410.1110, L3410.4010 #### [facility] (refer to report for specific site) refer to report for address and phone number ANTIEXTRACTABLE NUG AG Collected: 09/17/2018 Status: F Source: [place] 2:19 PM [facility] REPOSITORY TYPE CODE TESTS RESULT OUT OF RANGE REFERENCE UNITS LAB L3410.1200 0.0-0.9 AI Normal FIELD SALES ASSOCIATE Ab <0.2 LAB L3410.1300 0.0-0.9 AI Normal BRICENO Ab <0.2 Performed By: #### L3100.5475, L3100.5500, L3100.9100, L3410.0500, L3410.0700, L3410.1110, L3410.4010 #### [facility] (refer to report for specific site) refer to report for address and phone number ANTI-CENTROMERE B AB Collected: 09/17/2018 Status: F Source: [place] 2:19 PM [facility] REPOSITORY TYPE CODE TESTS RESULT OUT OF RANGE REFERENCE UNITS LAB L3410.4010 0.0-0.9 AI Normal ANTI-CENT <0.2 B Performed By: #### L3100.5475, L3100.5500, L3100.9100, L3410.0500, L3410.0700, L3410.1110, L3410.4010 #### [facility] (refer to report for specific site) refer to report for address and phone number HEPATITIS B SURFACE Collected: 09/17/2018 Status: F Source: [place] AG 2:19 PM [facility] REPOSITORY TYPE CODE TESTS RESULT OUT OF RANGE REFERENCE UNITS LAB L3100.0400 Negative Normal HB Negative SURF AG Result Comment: Performed at: [facility] [address] [id number] Supervisor Fleshing: West Spivey PhD, Phone: [phone] Performed at: 2 - [facility] [id number] Supervisor Fleshing: Juan Clifton PhD, Phone: [phone] Performed at: - [facility] [address] [id number] Supervisor Fleshing: Iesha Ambrocio MD, Phone: [phone] Performed By: #### L3100.0390, L3100.0528, L3100.0625, L3100.5700, L3100.5800, L3410.1400, L4600.0100 #### [facility] (refer to report for specific site) refer to report for address and phone number HEP B SURFACE Collected: 09/17/2018 Status: F Source: [place] ANTIBODIES 2:19 PM [facility] REPOSITORY TYPE CODE TESTS RESULT OUT OF RANGE REFERENCE UNITS LAB L3100.0528 . Normal Hep B Reactive Christopher AB Result Comment: Non Reactive: Inconsistent with immunity, less than 10 mIU/mL Reactive: Consistent with immunity, greater than 9.9 mIU/mL Performed By: #### L3100.0390, L3100.0528, L3100.0625, L3100.5700, L3100.5800, L3410.1400, L4600.0100 #### [facility] (refer to report for specific site) refer to report for address and phone number HEPATITIS C ANTIBODIES Collected: 09/17/2018 Status: F Source: [place] 2:19 PM [facility] REPOSITORY TYPE CODE TESTS RESULT OUT OF RANGE REFERENCE UNITS LAB L3100.0650 0.0-0.9 s/co ratio Normal HEP C AB <0.1 Result Comment: Negative: < 0.8 Indeterminate: 0.8 - 0.9 Positive: > 0.9 The CDC recommends that a positive HCV antibody result be followed up with a HCV Nucleic Acid Amplification test (163821). Performed By: #### L3100.0390, L3100.0528, L3100.0625, L3100.5700, L3100.5800, L3410.1400, L4600.0100 #### [facility] (refer to report for specific site) refer to report for address and phone number COMPLEMENT C3 Collected: 09/17/2018 Status: F Source: [place] 2:19 PM [facility] REPOSITORY TYPE CODE TESTS RESULT OUT OF RANGE REFERENCE UNITS LAB L3100.5700 82-167 mg/dL Normal COMP C3 128 Performed By: #### L3100.0390, L3100.0528, L3100.0625, L3100.5700, L3100.5800, L3410.1400, L4600.0100 #### [facility] (refer to report for specific site) refer to report for address and phone number COMPLEMENT C4 Collected: 09/17/2018 Status: F Source: [place] 2:19 PM [facility] REPOSITORY TYPE CODE TESTS RESULT OUT OF RANGE REFERENCE UNITS LAB L3100.5800 14-44 mg/dL Normal COMP C4 28 Performed By: #### L3100.0390, L3100.0528, L3100.0625, L3100.5700, L3100.5800, L3410.1400, L4600.0100 #### [facility] (refer to report for specific site) refer to report for address and phone number HLA B27 Collected: 09/17/2018 Status: F Source: [place] 2:19 PM [facility] REPOSITORY TYPE CODE TESTS RESULT OUT OF RANGE REFERENCE UNITS LAB L3410.1500 . Normal HLA Negative B27 Result Comment: HLA-B*27 Negative B27 allele interpretation for all loci based on IMGT/HLA database version 3.31.0 This test was developed and its performance characteristics determined by [facility]. It has not been cleared or approved by the Food and Drug Administration. [facility] CLIA ID Number [id number] This test was performed using PCR (Polymerase Chain Reaction)/SSOP (Sequence Specific Oligonucleotide Probes) technique. SBT (Sequence Based Typing) and/or SSP (Sequence Specific Primers) may be used as supplemental methods when necessary. Please contact [facility] Customer Service at if you have any questions. Director of [facility] Laboratory Dr Juan Clifton, PhD Performed By: #### L3100.0390, L3100.0528, L3100.0625, L3100.5700, L3100.5800, L3410.1400, L4600.0100 #### [facility] (refer to report for specific site) refer to report for address and phone number CCP IGG ANTIBODIES Collected: 09/17/2018 Status: F Source: [place] 2:19 PM [facility] REPOSITORY TYPE CODE TESTS RESULT OUT OF RANGE REFERENCE UNITS LAB L4600.0100 0-19 units Normal ANTI-CCP 6 [id number] Result Comment: Negative <20 Weak positive 20 - 39 Moderate positive 40 - 59 Strong positive >59 Performed By: #### L3100.0390, L3100.0528, L3100.0625, L3100.5700, L3100.5800, L3410.1400, L4600.0100 #### [facility] (refer to report for specific site) refer to report for address and phone number PELVIS 1 OR 2 VIEWS Observed: 09/17/2018 Status: F Source: [place] 2:18 PM [facility] REPOSITORY [facility] Imaging Services [address] [place] [address] Pelvis 1 or 2 Views MR#: [id number] Acct: [id number] Name: YOVANY FUENTES Rep #: [id number] : 1970 F 47 From: Slava Lake MD PCP: Rosalinda Garrett DO Status: REG CLI Study: Pelvis 1 or 2 Views Date of Exam: 09/17/18 Exam# [id number] Ordering Dr: Re López MD STUDY: X-RAY - PELVIS REASON FOR EXAM: Female, 47 years old. Inflammatory polyarthropathy. TECHNIQUE: One view of the pelvis was obtained. COMPARISON: None. FINDINGS: There is a non-specific bowel gas pattern. Normal visualized soft tissue structures. Normal bilateral iliac wings, sacroiliac joints and visualized sacrum. Normal visualized bilateral superior and inferior pubic rami. Normal pubic symphysis. Normal ischial tuberosities. Normal visualized right femoral head. Normal right acetabulum. Normal right hip joint. Normal visualized left femoral head. Normal left acetabulum. Normal left hip joint. RAD/Pelvis 1 or 2 Views IMPRESSION: Normal x-ray examination of the pelvis. Electronically Signed: Slava Lake MD at 18:46 EDT , Service support , CC: Rosalinda Garrett DO; Re López MD Salvage Determiner: Signed PROGRESS Observed: 06/11/2018 Status: COMPLETED Source: [place] 3:53 PM [facility] REPOSITORY O ID: [id number] Author: Asiya Field Service: (none) Author Type: Physician Type: Progress Notes Filed: 06/12/2018 8:43 AM Note Text: 47-years female (referred by SELF / PCP - hSena Daniel MD, [facility], [address] [place] [address] 2, [place] [address] ? ) ? ACTIVE PROBLEM LIST Fibromyalgia Episodic rhabdomyolysis Moderately Severe Depression Migraines Fatigue and brain fog Migraines Asthma H/o IgA nephropathy Current Outpatient Prescriptions: methylphenidate (RITALIN) 10 mg tablet Take one(1) tablet two(2) times daily (7 AM and 1 PM). NO FURTHER REFILLS UNTIL SEEN BY PHYSICIAN.Earliest Fill Date: 03/02/18 rizatriptan (MAXALT) 10 mg tablet Take 10 mg by mouth as needed. May repeat in 2 hours if needed levothyroxine (SYNTHROID) 50 mcg tablet Take 50 mcg by mouth twice daily. Topiramate (TOPAMAX) 50 mg tablet Take 50 mg by mouth twice daily. doxepin capsule 25 mg Take 25 mg by mouth at bedtime as needed. loratadine 10 mg cap Take by mouth twice daily. Omeprazole 40 mg capsule Take 40 mg by mouth twice daily. potassium chloride SR 20 mEq tablet Take 20 mEq by mouth. 1 tablet 3 times a week. Gabapentin 300 mg ORAL Tab Take by mouth. Two tablets at bedtime. KARUNA Masters 10/07/12. furosemide (LASIX) 20 mg ORAL tablet Take by mouth. One tablet THREE times weekly Multivitamin ORAL capsule Take 1 capsule by mouth once daily. predniSONE 10 mg ORAL tablet Take 10 mg by mouth as needed. hydroxychloroquine sulfate(PLAQUENIL 200 MG TAB) Take one(1) tablet twice daily. SINGULAIR 10 MG TAB Take one(1) tablet twice a day ADVAIR DISKUS 100 MCG-50 MCG/DOSE FOR INHALATION 1 puff twice a day FLUoxetine (PROZAC) 20 mg capsule Take by mouth. UPDATE: Last seen in 2012! Has seen Dr. Re Joaquin MD in [place]. She still has profound fatigue and brain fog. Ritalin really helps. Has new insurance now. She can now Dr. Joaquin again now. Her hips and elbows hurt really bad. Other joints also hurt. ? Past h/o Raynaud's, polyarthralgia/arthritis, episodic rhabdomyolyisis, fatigue, cognitive impairment, poor sleep - h/o positive MONIQUE in the apst, recent kidney biopsy (prompted by protenuria) indicated IgA nephropathy. ? 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 Off Etanercept. ? Patient was investigated for recurrent rhabdomyosis by [facility] neurology (Dr. Sanjana Montanez). Patient has a variety of symptoms for the past 13 years that require further elucidation. When last seen labs were within normal limits, including labs for systemic lupus erythematosus and Sjogren's syndrome. Recently had another bout of genital ulcers - biopsy performed by by Dr. Daniel - called her this morning - results are pending. She also has seen Dr. Sanjana Montanez at the Clinic - muscle biopsy specimen is being analyzed. ? She is back today - fatigue is overwhelming problem. She is also having more pain - elbows and hips in particular. Fatigue ++ HX OF PRESENT ILLNESS: For the past 8 years, the patient has the following symptoms: ? Raynauds - in hands and feet, worse in the winter months, w/ non healing ulcers, with cracking Arthritic symptoms - hands become swollen and painful, worse for the past two years, weekly and now improved w/ Enbrel injections Renal Disease - proteinuria, HTN around 2001, recently biopsied in 2011 and diagnosed as chronic kidney disease IgA nephropathy not lupus nephritis HTN rhabdomyolysis - especially after heavy physical activity that required hospitalization in the past 3 years on three separate occasions. She has also been forgetful for the past two years forgetting family names that negatively affects work. MRI/MRA showed ischemic changes There is also chronically elevated fever first noticed around 2003 on a daily basis especially more noticeable in the evening. Several cysts and inflamed. ? REVIEW OF SYSTEMS: Constitutional: dx with FUO, fever on and off, gain of 30lbs in the past 6 months, but previously lost same amount. Eye Symptoms: red and irritated eyes with her allergies, blurry vision is intermittent. ? ENT Symptoms: mouth sores helped by folate due to MTX treatment, bleeding gums due to sratching them, oral thrush several times each was a two week episode. ? ? Cardiovascular Symptoms: chest pain and palpitations an ecg was done which showed no abnormalities palpitations. ? Respiratory Symptoms: No shortness of breath ,difficulty breathing at night ,swollen legs or feet ,cough ,coughing of blood ,wheezing (asthma) ? GI Symptoms: No nausea ,vomiting of blood ,jaundice ,persistent diarrhea ,blood in stools ,black stools,heartburn ? Genitourinary Symptoms: hematuria during the rhabdomyolysis episdoes ? For Women Only: hysterectomy was performed 2009, dyspareunia, prior to that she had metomenorrhagia ? Musculoskeletal Symptoms: muscle pain with exercise, stiff joints joints in the morning become better better with use, regular muscle weakness ? Integumentary Involvement: bruise easily, loses hair, rashes and hives. ? Neurological Symptoms: headaches, memory loss. ? Psychiatric Symptoms: sleep disturbances past 8 years, Endocrine Symptoms: No Excessive Thirst,Polyuria Hematologic Symptoms: No swollen glands ,tender glands ,anemia ,bleeding tendency,transfusions ? Allergic/Immunologic: ? REVIEW OF SYSTEMS: June 11, 2018 CONSTITUTIONAL: Fever: No Fatigue: Yes Pain: Yes EYES: Pain: Yes Redness: No Loss of vision: No Dryness: Yes EAR, NOSE, MOUTH, THROAT: Nose bleeds: No Hearing loss: No Sores in mouth: Yes Swallowing problems: No Dry mouth: Yes CARDIOVASCULAR: Chest pain: No Swelling in the feet or legs: Yes RESPIRATORY: Shortness of breath: No Pain with breathing: No Chronic cough: No Coughing up blood: No GASTROINTESTINAL: Heartburn: No Nausea: Yes Diarrhea: No Blood in the stool or black stool: No Abdominal pain: Yes GENITOURINARY: Blood in urine: Yes Pain or burning on urination: No MUSCULOSKELETAL: Joint pain: Yes Joint swelling: Yes Morning stiffness in joints: Yes Muscle weakness: Yes Back pain: Yes SKIN: Rashes: Yes Sun sensitive rashes: Yes Color changes of hands or feet in the cold: Yes Hair loss: Yes Nail changes: Yes NEUROLOGICAL: Headaches: Yes Dizziness: Yes Numbness or tingling: Yes Memory loss: Yes Seizures: No HEMATOLOGIC/LYMPHATIC: Swollen glands: Yes Anemia: Yes ALLERGIES/IMMUNOLOGIC: Allergies (other than medications): Yes Increased susceptibility to infection: No KNOWN MEDICAL CONDITIONS: Diabetes: No Thyroid disease: Yes High blood pressure: Yes PROMIS? (Patient-Reported Outcomes Measurement Information System) is a set of person-centered measures that evaluates and monitors physical, social, and emotional health. It can be used with the general population and with individuals living with chronic conditions. PROMIS 10: PHYSICAL AND MENTAL HEALTH: Global Physical Health T Score: 29.6 Global Physical Health Percentile: 2.07 Global Mental Health T Score: 25.1 Global Mental Health Percentile: 0.64 RAPID 3: DISEASE ACTIVITY: Weighed Score Levels: 0 - 1: Near Remission 1.3 - 2.0: Low Severity 2.3 - 4.0: Moderate Severity 4.3 - 10.0: High Severity RAPID-3 Weighed Score 06/11/2018 RAPID 3 Weighed Score 5.3 Patient Health Questionnaire (PHQ-9) PHQ-9 Levels: 0 - 4 Minimal depression 5 - 9 Mild depression 10-14 Moderate depression 15-19 Moderately severe depression 20-27 Severe depression PHQ-9 Score: 23 PHQ-2 Score: 6 (0-3) Daily difficulty level due to depression (0-3): 2 1. Little interest or pleasure in doing things?: Nearly every day 2. Feeling down, depressed, or hopeless?: Nearly every day 3. Trouble falling or staying asleep, or sleeping too much?: Nearly every day 4. Feeling tired or having little energy?: Nearly every day 5. Poor appetite or overeating?: Nearly every day 6. Feeling bad about yourself - or that you are a failure or have let yourself or your family down?: Nearly every day 7. Trouble concentrating on things, such as reading the newspaper or watching television?: Not at all 8. Moving or speaking so slowly that other people could have noticed. Or the opposite - being so fidgety or restless that you have been moving around a lot more than usual?: More than half the days 9. Thoughts that you would be better off , or of hurting yourself in some way?: Nearly every day PHQ 9 - patient marked nearly every day on question 9: Thoughts that you would be better off , or of hurting yourself in some way. On enquiry the patient admits that it was a mistake. He/She did not mean what he/she wrote - he/she does not have any intention to commit self harm including suicide. 10. If you checked off any problems, how difficult have these problems made it for you to do your work, take care of things at home, or get along with other people?: Very difficult ? PAST MEDICAL HISTORY Unspecified Asthma Acute Glomerulonephritis With Other Specified Pathological Lesion in Kidney in Disease Classified Elsewhere (kidney disorder hardening of arteries) Essential Hypertension, Benign Lupus Erythematosus Raynaud's Syndrome Arthritis Associated With Another Disorder (SLe related) Steroid Long-Term Use ? ? PAST SURGICAL HISTORY Delivery Only Total Abdom Hysterectomy - 04/13/2009 Past Surgical History of (right wrist ganglion cyst resection) Excis Bartholin Gland/Cyst ? 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 No reported control method. ? FAMILY HISTORY Mother: Cancer (bladder) Father: Heart Brother: Diabetes Maternal Grandfather: Colon Cancer Maternal Aunt: Stroke, Aneurysm (cerebral) Maternal Uncle: Aneurysm (cerebral) Paternal Aunt: other (thyroid; Grave's Disease) ? PHYSICAL EXAMINATION: Vitals: LMP 03/17/2009 General appearance: well appearing, alert, in no acute distress, well-hydrated, well nourished Skin: skin color, texture, turgor - malar erythema; hyperpigmentation of skin of legs, thighs - Plaquenil induced? no other suspicious rashes or lesions Head: normal Eyes: Anicteric sclera. Pupils are equally round and reactive to light. Extraocular movements are intact. Ears: external ears normal, canals clear, TM's normal Nose/Sinuses: negative Oropharynx: lips, mucosa, and tongue normal, teeth and gums normal, oropharynx normal Neck: Supple, no adenopathy; thyroid symmetric, normal size, no bruits Back: no pain to palpation over spine or costovertebral angles, reflexes are 2+ and symmetric, motor and sensory appear to be normal Lungs: clear to auscultation, no wheezing or rhonchi Heart: RRR without murmur, gallop, or rubs. No ectopy Abdomen: Normal abdominal exam, Abdomen soft, non-tender. Bowel sounds normal. No masses, organomegaly Extremities: Extremities normal. No deformities, edema, or skin discoloration. Good capillary refill. Musculoskeletal: Spine range of motion normal. Muscular strength intact. No clinical synovitis or joint deformity. Multiple tender points. Peripheral pulses: Normal Neuro: Gait normal. Reflexes normal and symmetric. Sensation grossly intact. ? Questionnaire scores: Telephone sleepiness scale: 17 (was 3) MDQ (mood disorder questionnaire): 5 (was11) PHQ (patient health questionnaire): depression 24 (was 8), anxiety 15 (was 3) ? Fibromyalgia evaluation: Wide spread pain scale 10 (was 3), symptom severity 12 (was12) Fatigue VAS: 10 ? The patient satisfies the recently published preliminary ACR criteria for fibromyalgia (WPI 7 AND SS 5) or (WPI 3-6 AND SS 9) with a WPI of 3 and SS of 12 ? See: Yvan F, Shana DJ, Jaden MA, Yamile DL, Ana RS, Estrella P, Lupillo , Lupillo IJ, Kamran BAUDILIO, Farida VELAZCO. Arthritis Care Res. 2010 March;62(5):600-10. The [employer] preliminary diagnostic criteria for fibromyalgia and measurement of symptom severity. ? ? PHQ 9 - patient marked nearly every day on question 9: Thoughts that you would be better off , or of hurting yourself in some way. On enquiry the patient admits that it was a mistake. He/She did not mean what he/she wrote - he/she does not have any intention to commit self harm including suicide. ASSESSMENT AND PLAN: Profound fatigue and brain fog. ? H/o Raynaud's, polyarthralgia/arthritis, 'opto mechanical technician's hands'?, episodic rhabdomyolyisis, fatigue, cognitive impairment, poor sleep - h/o positive MONIQUE in mike apst, recent kidney biopsy (prompted by protenuria) indicated IgA nephropathy. ? 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 ? Patient is being investigated for recurrent rhabdomyosis by [facility] neurology (Dr. Sanjana Montanez) ? RECOMMEND: Will check labs. 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 This condition is associated with abnormal central processing of various peripheral stimuli including pain. Fibromyalgia is a musculoskeletal manifestation of this condition. It is a very common condition and is a diagnosis of inclusion rather than that of exclusion, i.e. it can co-exist with other concomitant rheumatologic and/or non-rheumatologic conditions. A meta- analysis from the [facility] in [place] suggested that concomitant fibromyalgia is common in patients with inflammatory arthritis, which can have a major impact on assessing disease severity and treatment decisions. The overall prevalence of fibromyalgia was 21% among patients with rheumatoid arthritis and 13% in ankylosing spondylitis, whereas the condition is reported in approximately 1% to 5% of the general population, according to Hernandez Morris, [facility], PhD, of the [facility] in [place], and colleagues. The cornerstones of therapy for fibromyalgia (based on level 1 evidence) are regular aerobic exercise (stationary bike, pool therapy), optimal sleep, and optimal treatment of depression. Optimal quality sleep (especially deep sleep - phase 3/4 NREM) is important to achieve. If your sleep remains disturbed, you might need to have a sleep study to identify a primary sleep disorder that might need concomitant treatment. You might also benefit from relaxation techniques such as yoga, rosalia chi, acupuncture, or biofeedback to help deal better with stress. I emphasize that all the three aspects of the treatment (sleep, exercise, depression) be addressed simultaneously for maximum benefit and effective treatment of this condition. Doing one or the other will result in less than an optimal response to treatment. Medications sometimes used to treat fibromyalgia include those to help correct sleep disturbances and depression such as low dose antidepressants (Cymbalta or Savella) or non-habit forming sedatives and mild analgesics such as Tylenol. Lyrica is another drug that has been FDA approved for treatment of fibromyalgia. Narcotics have been found to be not only ineffective, but harmful and habit forming, and should be avoided. Therapy must be highly individualized. Most signs and symptoms of fibromyalgia can be managed by primary care providers under the guidance of a specialist. So please discuss the following with your primary care provider: - Aquatic therapy - Routine low grade aerobic exercise - Relaxation techniques / mindfulness / yoga /Rosalia Chi / Qi Gong - Improvement of sleep hygiene - Appropriately address depression/anxiety with SNRIs - Can use Gabapentin and Tricyclics for symptomatic benefit - Occupational therapy evaluation for desensitization therapy. For additional information please visit the following excellent resource that also outlines the management guidelines of fibromyalgia: [email or web address] Continue Ritalin mg twice daily (7 AM and 1 PM). Switch from Doxepin to Elavil - 10 mg one(1) tablet daily at bedtime. Follow up with [facility] Neurology (Sanjana Montanez MD). Please continue current medications for now. Physical and aquatic therapy. F/U - 1 year. ? The duration of this appointment was 60 minutes of [id number] time with the patient. At least 50% of this time was spent in counseling, explanation of diagnosis, planning of further management, and coordination of care. Asiya Field MD CNOV Observed: 06/11/2018 Status: COMPLETED Source: [id number] 2:40 PM [facility] [place] [facility] Office Visit (RHEUMN) YOVANY FUENTES ([id number]) 1970 F Date Time Provider Department 06/11/18 2:40 PM ASIYA FIELD RHEUMYuliana During your visit today, we recorded the following information about you: Temperature Pulse Blood pressure Weight 98.7 degrees 84/minute 128/73 72.2 kg Height 1.63 m Asiya Field MD 06/12/2018 8:43 AM Signed 47-years female (referred by SELF / PCP - Shena Daniel MD, [facility], [address] [place] [address] 2, [place] [address] ? ) ? ACTIVE PROBLEM LIST Fibromyalgia Episodic rhabdomyolysis Moderately Severe Depression Migraines Fatigue and brain fog Migraines Asthma H/o IgA nephropathy Current Outpatient Prescriptions: methylphenidate (RITALIN) 10 mg tablet Take one(1) tablet two(2) times daily (7 AM and 1 PM). NO FURTHER REFILLS UNTIL SEEN BY PHYSICIAN.Earliest Fill Date: 03/02/18 rizatriptan (MAXALT) 10 mg tablet Take 10 mg by mouth as needed. May repeat in 2 hours if needed levothyroxine (SYNTHROID) 50 mcg tablet Take 50 mcg by mouth twice daily. Topiramate (TOPAMAX) 50 mg tablet Take 50 mg by mouth twice daily. doxepin capsule 25 mg Take 25 mg by mouth at bedtime as needed. loratadine 10 mg cap Take by mouth twice daily. Omeprazole 40 mg capsule Take 40 mg by mouth twice daily. potassium chloride SR 20 mEq tablet Take 20 mEq by mouth. 1 tablet 3 times a week. Gabapentin 300 mg ORAL Tab Take by mouth. Two tablets at bedtime. KARUNA Masters 10/07/12. furosemide (LASIX) 20 mg ORAL tablet Take by mouth. One tablet THREE times weekly Multivitamin ORAL capsule Take 1 capsule by mouth once daily. predniSONE 10 mg ORAL tablet Take 10 mg by mouth as needed. hydroxychloroquine sulfate(PLAQUENIL 200 MG TAB) Take one(1) tablet twice daily. SINGULAIR 10 MG TAB Take one(1) tablet twice a day ADVAIR DISKUS 100 MCG-50 MCG/DOSE FOR INHALATION 1 puff twice a day FLUoxetine (PROZAC) 20 mg capsule Take by mouth. UPDATE: Last seen in 2012! Has seen Dr. Re Joaquin MD in [place]. She still has profound fatigue and brain fog. Ritalin really helps. Has new insurance now. She can now Dr. Joaquin again now. Her hips and elbows hurt really bad. Other joints also hurt. ? Past h/o Raynaud's, polyarthralgia/arthritis, episodic rhabdomyolyisis, fatigue, cognitive impairment, poor sleep - h/o positive MONIQUE in the apst, recent kidney biopsy (prompted by protenuria) indicated IgA nephropathy. ? 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 Off Etanercept. ? Patient was investigated for recurrent rhabdomyosis by [facility] neurology (Dr. Sanjana Montanez). Patient has a variety of symptoms for the past 13 years that require further elucidation. When last seen labs were within normal limits, including labs for systemic lupus erythematosus and Sjogren's syndrome. Recently had another bout of genital ulcers - biopsy performed by by Dr. Daniel - called her this morning - results are pending. She also has seen Dr. Sanjana Montanez at the Clinic - muscle biopsy specimen is being analyzed. ? She is back today - fatigue is overwhelming problem. She is also having more pain - elbows and hips in particular. Fatigue ++ HX OF PRESENT ILLNESS: For the past 8 years, the patient has the following symptoms: ? Raynauds - in hands and feet, worse in the winter months, w/ non healing ulcers, with cracking Arthritic symptoms - hands become swollen and painful, worse for the past two years, weekly and now improved w/ Enbrel injections Renal Disease - proteinuria, HTN around 2001, recently biopsied in 2011 and diagnosed as chronic kidney disease IgA nephropathy not lupus nephritis HTN rhabdomyolysis - especially after heavy physical activity that required hospitalization in the past 3 years on three separate occasions. She has also been forgetful for the past two years forgetting family names that negatively affects work. MRI/MRA showed ischemic changes There is also chronically elevated fever first noticed around 2003 on a daily basis especially more noticeable in the evening. Several cysts and inflamed. ? REVIEW OF SYSTEMS: Constitutional: dx with FUO, fever on and off, gain of 30lbs in the past 6 months, but previously lost same amount. Eye Symptoms: red and irritated eyes with her allergies, blurry vision is intermittent. ? ENT Symptoms: mouth sores helped by folate due to MTX treatment, bleeding gums due to sratching them, oral thrush several times each was a two week episode. ? ? Cardiovascular Symptoms: chest pain and palpitations an ecg was done which showed no abnormalities palpitations. ? Respiratory Symptoms: No shortness of breath ,difficulty breathing at night ,swollen legs or feet ,cough ,coughing of blood ,wheezing (asthma) ? GI Symptoms: No nausea ,vomiting of blood ,jaundice ,persistent diarrhea ,blood in stools ,black stools,heartburn ? Genitourinary Symptoms: hematuria during the rhabdomyolysis episdoes ? For Women Only: hysterectomy was performed 2009, dyspareunia, prior to that she had metomenorrhagia ? Musculoskeletal Symptoms: muscle pain with exercise, stiff joints joints in the morning become better better with use, regular muscle weakness ? Integumentary Involvement: bruise easily, loses hair, rashes and hives. ? Neurological Symptoms: headaches, memory loss. ? Psychiatric Symptoms: sleep disturbances past 8 years, Endocrine Symptoms: No Excessive Thirst,Polyuria Hematologic Symptoms: No swollen glands ,tender glands ,anemia ,bleeding tendency,transfusions ? Allergic/Immunologic: ? REVIEW OF SYSTEMS: June 11, 2018 CONSTITUTIONAL: Fever: No Fatigue: Yes Pain: Yes EYES: Pain: Yes Redness: No Loss of vision: No Dryness: Yes EAR, NOSE, MOUTH, THROAT: Nose bleeds: No Hearing loss: No Sores in mouth: Yes Swallowing problems: No Dry mouth: Yes CARDIOVASCULAR: Chest pain: No Swelling in the feet or legs: Yes RESPIRATORY: Shortness of breath: No Pain with breathing: No Chronic cough: No Coughing up blood: No GASTROINTESTINAL: Heartburn: No Nausea: Yes Diarrhea: No Blood in the stool or black stool: No Abdominal pain: Yes GENITOURINARY: Blood in urine: Yes Pain or burning on urination: No MUSCULOSKELETAL: Joint pain: Yes Joint swelling: Yes Morning stiffness in joints: Yes Muscle weakness: Yes Back pain: Yes SKIN: Rashes: Yes Sun sensitive rashes: Yes Color changes of hands or feet in the cold: Yes Hair loss: Yes Nail changes: Yes NEUROLOGICAL: Headaches: Yes Dizziness: Yes Numbness or tingling: Yes Memory loss: Yes Seizures: No HEMATOLOGIC/LYMPHATIC: Swollen glands: Yes Anemia: Yes ALLERGIES/IMMUNOLOGIC: Allergies (other than medications): Yes Increased susceptibility to infection: No KNOWN MEDICAL CONDITIONS: Diabetes: No Thyroid disease: Yes High blood pressure: Yes PROMIS? (Patient-Reported Outcomes Measurement Information System) is a set of person-centered measures that evaluates and monitors physical, social, and emotional health. It can be used with the general population and with individuals living with chronic conditions. PROMIS 10: PHYSICAL AND MENTAL HEALTH: Global Physical Health T Score: 29.6 Global Physical Health Percentile: 2.07 Global Mental Health T Score: 25.1 Global Mental Health Percentile: 0.64 RAPID 3: DISEASE ACTIVITY: Weighed Score Levels: 0 - 1: Near Remission 1.3 - 2.0: Low Severity 2.3 - 4.0: Moderate Severity 4.3 - 10.0: High Severity RAPID-3 Weighed Score 06/11/2018 RAPID 3 Weighed Score 5.3 Patient Health Questionnaire (PHQ-9) PHQ-9 Levels: 0 - 4 Minimal depression 5 - 9 Mild depression 10-14 Moderate depression 15-19 Moderately severe depression 20-27 Severe depression PHQ-9 Score: 23 PHQ-2 Score: 6 (0-3) Daily difficulty level due to depression (0-3): 2 1. Little interest or pleasure in doing things?: Nearly every day 2. Feeling down, depressed, or hopeless?: Nearly every day 3. Trouble falling or staying asleep, or sleeping too much?: Nearly every day 4. Feeling tired or having little energy?: Nearly every day 5. Poor appetite or overeating?: Nearly every day 6. Feeling bad about yourself - or that you are a failure or have let yourself or your family down?: Nearly every day 7. Trouble concentrating on things, such as reading the newspaper or watching television?: Not at all 8. Moving or speaking so slowly that other people could have noticed. Or the opposite - being so fidgety or restless that you have been moving around a lot more than usual?: More than half the days 9. Thoughts that you would be better off , or of hurting yourself in some way?: Nearly every day PHQ 9 - patient marked nearly every day on question 9: Thoughts that you would be better off , or of hurting yourself in some way. On enquiry the patient admits that it was a mistake. He/She did not mean what he/she wrote - he/she does not have any intention to commit self harm including suicide. 10. If you checked off any problems, how difficult have these problems made it for you to do your work, take care of things at home, or get along with other people?: Very difficult ? PAST MEDICAL HISTORY Unspecified Asthma Acute Glomerulonephritis With Other Specified Pathological Lesion in Kidney in Disease Classified Elsewhere (kidney disorder hardening of arteries) Essential Hypertension, Benign Lupus Erythematosus Raynaud's Syndrome Arthritis Associated With Another Disorder (SLe related) Steroid Long-Term Use ? ? PAST SURGICAL HISTORY Delivery Only Total Abdom Hysterectomy - 04/13/2009 Past Surgical History of (right wrist ganglion cyst resection) Excis Bartholin Gland/Cyst ? 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 No reported control method. ? FAMILY HISTORY Mother: Cancer (bladder) Father: Heart Brother: Diabetes Maternal Grandfather: Colon Cancer Maternal Aunt: Stroke, Aneurysm (cerebral) Maternal Uncle: Aneurysm (cerebral) Paternal Aunt: other (thyroid; Grave's Disease) ? PHYSICAL EXAMINATION: Vitals: LMP 03/17/2009 General appearance: well appearing, alert, in no acute distress, well-hydrated, well nourished Skin: skin color, texture, turgor - malar erythema; hyperpigmentation of skin of legs, thighs - Plaquenil induced? no other suspicious rashes or lesions Head: normal Eyes: Anicteric sclera. Pupils are equally round and reactive to light. Extraocular movements are intact. Ears: external ears normal, canals clear, TM's normal Nose/Sinuses: negative Oropharynx: lips, mucosa, and tongue normal, teeth and gums normal, oropharynx normal Neck: Supple, no adenopathy; thyroid symmetric, normal size, no bruits Back: no pain to palpation over spine or costovertebral angles, reflexes are 2+ and symmetric, motor and sensory appear to be normal Lungs: clear to auscultation, no wheezing or rhonchi Heart: RRR without murmur, gallop, or rubs. No ectopy Abdomen: Normal abdominal exam, Abdomen soft, non-tender. Bowel sounds normal. No masses, organomegaly Extremities: Extremities normal. No deformities, edema, or skin discoloration. Good capillary refill. Musculoskeletal: Spine range of motion normal. Muscular strength intact. No clinical synovitis or joint deformity. Multiple tender points. Peripheral pulses: Normal Neuro: Gait normal. Reflexes normal and symmetric. Sensation grossly intact. ? Questionnaire scores: Telephone sleepiness scale: 17 (was 3) MDQ (mood disorder questionnaire): 5 (was11) PHQ (patient health questionnaire): depression 24 (was 8), anxiety 15 (was 3) ? Fibromyalgia evaluation: Wide spread pain scale 10 (was 3), symptom severity 12 (was12) Fatigue VAS: 10 ? The patient satisfies the recently published preliminary ACR criteria for fibromyalgia (WPI 7 AND SS 5) or (WPI 3-6 AND SS 9) with a WPI of 3 and SS of 12 ? See: Yvan F, Shana DJ, Jaden MA, Yamile DL, Ana RS, Estrella P, Lupillo , Lupillo IJ, Kamran BAUDILIO, Farida MB. Arthritis Care Res. 2010 March;62(5):600-10. [employer] [employer] preliminary diagnostic criteria for fibromyalgia and measurement of symptom severity. ? ? PHQ 9 - patient marked nearly every day on question 9: Thoughts that you would be better off , or of hurting yourself in some way. On enquiry the patient admits that it was a mistake. He/She did not mean what he/she wrote - he/she does not have any intention to commit self harm including suicide. ASSESSMENT AND PLAN: Profound fatigue and brain fog. ? H/o Raynaud's, polyarthralgia/arthritis, 'opto mechanical technician's hands'?, episodic rhabdomyolyisis, fatigue, cognitive impairment, poor sleep - h/o positive MONIQUE in mike apst, recent kidney biopsy (prompted by protenuria) indicated IgA nephropathy. ? 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 ? Patient is being investigated for recurrent rhabdomyosis by [facility] neurology (Dr. Sajnana Montanez) ? RECOMMEND: Will check labs. 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 This condition is associated with abnormal central processing of various peripheral stimuli including pain. Fibromyalgia is a musculoskeletal manifestation of this condition. It is a very common condition and is a diagnosis of inclusion rather than that of exclusion, i.e. it can co-exist with other concomitant rheumatologic and/or non-rheumatologic conditions. A meta-analysis from the [facility] in [place] suggested that concomitant fibromyalgia is common in patients with inflammatory arthritis, which can have a major impact on assessing disease severity and treatment decisions. The overall prevalence of fibromyalgia was 21% among patients with rheumatoid arthritis and 13% in ankylosing spondylitis, whereas the condition is reported in approximately 1% to 5% of the general population, according to Hernandez Morris, [facility], PhD, of the [facility] in [place], and colleagues. The cornerstones of therapy for fibromyalgia (based on level 1 evidence) are regular aerobic exercise (stationary bike, pool therapy), optimal sleep, and optimal treatment of depression. Optimal quality sleep (especially deep sleep - phase 3/4 NREM) is important to achieve. If your sleep remains disturbed, you might need to have a sleep study to identify a primary sleep disorder that might need concomitant treatment. You might also benefit from relaxation techniques such as yoga, rosalia chi, acupuncture, or biofeedback to help deal better with stress. I emphasize that all the three aspects of the treatment (sleep, exercise, depression) be addressed simultaneously for maximum benefit and effective treatment of this condition. Doing one or the other will result in less than an optimal response to treatment. Medications sometimes used to treat fibromyalgia include those to help correct sleep disturbances and depression such as low dose antidepressants (Cymbalta or Savella) or non-habit forming sedatives and mild analgesics such as Tylenol. Lyrica is another drug that has been FDA approved for treatment of fibromyalgia. Narcotics have been found to be not only ineffective, but harmful and habit forming, and should be avoided. Therapy must be highly individualized. Most signs and symptoms of fibromyalgia can be managed by primary care providers under the guidance of a specialist. So please discuss the following with your primary care provider: - Aquatic therapy - Routine low grade aerobic exercise - Relaxation techniques / mindfulness / yoga /Rosalia Chi / Qi Gong - Improvement of sleep hygiene - Appropriately address depression/anxiety with SNRIs - Can use Gabapentin and Tricyclics for symptomatic benefit - Occupational therapy evaluation for desensitization therapy. For additional information please visit the following excellent resource that also outlines the management guidelines of fibromyalgia: [email or web address]/ Continue Ritalin mg twice daily (7 AM and 1 PM). Switch from Doxepin to Elavil - 10 mg one(1) tablet daily at bedtime. Follow up with [facility] (Sanjana Montanez MD). Please continue current medications for now. Physical and aquatic therapy. F/U - 1 year. ? The duration of this appointment was 60 minutes of [id number]-rg-[id number] time with the patient. At least 50% of this time was spent in counseling, explanation of diagnosis, planning of further management, and coordination of care. 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 NO FURTHER REFILLS UNTIL SEEN BY PHYSICIAN. Earliest Fill Date: 07/02/18Disp: 180 tabletRfl: 0 amitriptyline (ELAVIL) 10 mg tabletTake 1 tablet by mouth daily at bedtime.Disp: 90 tabletRfl: 3 Prescriptions as of 06/11/2018 Sig: METHYLPHENIDATE 10 MG TABLET Take one(1) tablet two(2) anthony* RIZATRIPTAN 10 MG TABLET Take 10 mg by mouth as needed* LEVOTHYROXINE 50 MCG TABLET Take 50 mcg by mouth twice da* TOPIRAMATE 50 MG TABLET Take 50 mg by mouth twice saray* LORATADINE 10 MG CAPSULE Take by mouth twice daily. * OMEPRAZOLE 40 MG CAPSULE,DELVIN* Take 40 mg by mouth twice saray* * POTASSIUM CHLORIDE ER 20 MEQ * Take 20 mEq by mouth. 1 table* * GABAPENTIN 300 MG TABLET Take by mouth. Two tablets a* * FUROSEMIDE 20 MG TABLET Take by mouth. One tablet TH* * MULTIVITAMIN CAPSULE Take 1 capsule by mouth once * * PREDNISONE 10 MG TABLET Take 10 mg by mouth as needed. * PLAQUENIL 200 MG TABLET Take one(1) tablet twice kirt* * SINGULAIR 10 MG TABLET Take one(1) tablet twice a day * ADVAIR DISKUS 100 MCG-50 MCG/* 1 puff twice a day FLUOXETINE 20 MG CAPSULE Take by mouth. AMITRIPTYLINE 10 MG TABLET Take 1 tablet by mouth daily * Problem List As Of Date 06/11/2018 Noted Resolved Rhabdomyolysis [M62.82] INVALID FOR* Prescriptions ordered this encounter Disp Refills Start End METHYLPHENIDATE 10 MG TABLET 180 * 0 07/02/2018 06/11/2019 Class: Print RX Sig: Take one(1) tablet two(2) times daily (7 AM and 1 PM). NO FURTHER REFILLS UNTIL SEEN BY PHYSICIAN. Earliest Fill Date: 07/02/18 AMITRIPTYLINE 10 MG TABLET 90 t* 3 06/11/2018 Route: ORAL Sig: Take 1 tablet by mouth daily at bedtime. Medications Discontinued During This Encounter DULoxetine (CYMBALTA) 30 mg capsule 06/11/2018 Class: Historical Med Route: ORAL Sig: Take 60 mg by mouth twice daily. Disc: Reason for discontinue is not on file. methylphenidate (RITALIN) 10 mg tabl* 180 * 0 03/02/2018 06/11/2018 Class: Print RX Sig: Take one(1) tablet two(2) times daily (7 AM and 1 PM). NO FURTHER REFILLS UNTIL SEEN BY PHYSICIAN. Earliest Fill Date: 03/02/18 Disc: Reason for discontinue is not on file. doxepin capsule 25 mg 06/11/2018 Class: Historical Med Route: ORAL Sig: Take 25 mg by mouth at bedtime as needed. Disc: Other Disposition: Return in about 1 year (around 06/11/2019), or if symptoms worsen or fail to improve. Follow-up and Disposition History Recorded Encounter Status:Closed by ASIYA FIELD MD on 06/12/18 ALLERGIES ALLERGIES DATE TYPE / CODE NAME / CODE REACTION SEVERITY SOURCE 04/20/2016 Drug hydromorphone Itching Unknown Carlo Allergy/416 HCl/[id number]([facility] [id number]([facility] ED CT) Repository 11/20/2006 DRUG THEOPHYLLINE [facility] INGREDI/419 [facility] [id number]([facility] Repository ED CT) ENCOUNTERS ENCOUNTERS ADMIT/DISCHARGE ACCOUNT ADMITTING ENCOUNTER LOCATION SOURCE NUMBER CLASS 10/19/2018 [id number] [facility] ing:MTLAB Repository 09/17/2018 [id number] [facility] ing:MTLAB Repository 06/11/2018/06/12/[id number] [place] [address] Repository PAYERS PAYERS ENCOUNTER GUARANTOR PAYER SUBSCRIBER SOURCE 10/19/2018 Yovany Fuentes3574 Primary Amy Shaffer EduardoB: Carlo REAIRIS LUJAN Insurance:MEDICAL [id number] [address]Xdc: (330) Number: Repository [phone] () [id number] Date:[id number] [id number]: 10/19/2018 Secondary NOT GIVENUNK Carlo Insurance:SELF PAY [facility] Number: Effective Repository Date:2018-10-19 09/17/2018 Yovany Fuentes3574 Primary Amy FuentesB: Carlo PRETTY Insurance:MEDICAL [id number] [address]Rdu: (330) Number: Repository [phone] () [id number] Date:[id number] [address]SG: 09/17/2018 Secondary NOT GIVENUNK Carlo Insurance:SELF PAY [facility] Number: Effective Repository Date:2018-09-17
== END ==
PROVIDERS: Family Provider Internal Medicine; PCP Internal Medicine; Referring Provider Internal Medicine Rheumatology; Visit Provider Internal Medicine Rheumatology
DX: M06.4 Inflammatory polyarthropathy (principal); Z79.899 Other long term (current) drug therapy; M79.7 Fibromyalgia; I73.00 Raynaud's syndrome without gangrene; R53.82 Chronic fatigue, unspecified; E03.9 Hypothyroidism, unspecified; G43.909 Migraine, unspecified, not intractable, without status migrainosus; Z87.11 Personal history of peptic ulcer disease
CPT/HCPCS: 36415; 80053

== ENCOUNTER → 2019-02-22 14:40 | Outpatient (CLI) | payer OTHER, SELFPAY ==
[2019-02-22 16:57] LABS: ALB/GLOB Ratio 1.1 RATIO (0.9-2.4); AST(SGOT) 21 U/L (15-37); Alanine Aminotransfer ALT/SGPT 26 U/L (13-56); Albumin, Serum 3.8 g/dL (3.2-5.0); Alkaline Phosphatase 69 U/L (45-117); Anion Gap 4 (5-15); BUN 14 mg/dL (7-18); Calcium,Total 8.5 mg/dL (8.5-10.1); Chloride 110 mmol/L (98-107); Creatinine, Serum 1.27 mg/dL (0.55-1.02); EST Glomerular Filtration Rate 48 mL/min (>60); Est Glom Filt Rate - Afr Amer 58 mL/min (>60); Globulin 3.5 g/dL (2.2-4.2); Glucose 88 mg/dL (74-106); Potassium 4.1 mmol/L (3.5-5.1); Protein, Total 7.3 g/dL (6.4-8.2); Sodium Level 139 mmol/L (136-145)
[2019-02-24 20:06] LABS: QNTFERON TB Mitogen Value > 10.00 IU/mL (.); QNTFERON TB Nil Value 0.01 IU/mL (.); QNTFERON TB1+ Ag Value 0.01 IU/mL (.); QNTFERON TB2+ Ag Value 0.01 IU/mL (.)
[2019-02-25 15:56] LABS: QNTIFERON TB Positive Criteria Negative (Negative)
== END ==
PROVIDERS: Family Provider Internal Medicine; PCP Internal Medicine; Referring Provider Internal Medicine Rheumatology; Visit Provider Internal Medicine Rheumatology
DX: M06.4 Inflammatory polyarthropathy (principal); M79.7 Fibromyalgia; I73.00 Raynaud's syndrome without gangrene; R53.82 Chronic fatigue, unspecified; E03.9 Hypothyroidism, unspecified; G43.909 Migraine, unspecified, not intractable, without status migrainosus; Z79.899 Other long term (current) drug therapy; Z87.11 Personal history of peptic ulcer disease
CPT/HCPCS: 36415; 80053; 86480

== ENCOUNTER → 2020-03-22 14:59 | Outpatient (CLI) | payer OTHER, SELFPAY ==
--- NOTE | 2020-03-22 15:05 | RAD_ITS ---
STUDY: X-RAY CHEST REASON FOR EXAM: Female, 49 years old. Inflammatory polyarthropathy TECHNIQUE: PA and lateral views of the chest. COMPARISON: Comparison is made with prior examination dated February 22, 2016. FINDINGS: The lungs are clear and expanded. Scattered calcified granulomas. There is no demonstrated pleural abnormality. Normal size heart. Normal mediastinum and ivy. Normal visualized pulmonary arteries. Normal visualized aortic arch and descending thoracic aorta. There are mild degenerative changes of the visualized thoracic spine. Normal visualized ribs, clavicles, and shoulders. There is no demonstrated abnormality of the visualized soft tissue structures of the upper abdomen. RAD/Chest PA and Lateral IMPRESSION: Normal x-ray examination of the chest. Electronically Signed: Oni Leone, at 15:52 EDT , Service support ,
[2020-03-22 17:46] LABS: Absolute Lymphocyte Count 0.65 X10^3/uL (0.83-4.51); Absolute Neutrophil Count 5.8 X10^3/uL (2.0-7.7); Basophil# 0.03 X10^3/uL; Basophil% 0.4 % (0-1); Eosinophil# 0.02 X10^3/uL; Eosinophils% 0.3 % (0-5); Hematocrit 44.3 % (37-47); Hemoglobin 14.4 g/dL (12.0-15.0); Lymphocyte # 0.65 X10^3/ul (4.0); Lymphocyte % 9.5 % (19-41); Mean Corp Hgb Conc 32.5 g/dL (32-36); Mean Corpuscular Hgb 30.6 pg (27.0-32.0); Mean Corpuscular Volume 94.3 fL (81-99); Mean Platelet Vol. 10.3 fl (6.2-12.0); Monocyte# 0.32 X10^3/uL; Monocyte% 4.7 % (0-10); NRBC Flagged by Analyzer 0 % (0-5); Neutrophil % 84.4 % (47-70); Platelet Count 261 K/mm3 (150-450); RBC Distribution Width CV 12.4 % (11.6-14.6); White Blood Count 6.9 K/mm3 (4.4-11.0)
[2020-03-22 17:55] LABS: Erythrocyte Sedimentation Rate 5 mm/hr (0-20)
[2020-03-22 18:16] LABS: ALB/GLOB Ratio 1.1 RATIO (0.9-2.4); AST(SGOT) 18 U/L (15-37); Alanine Aminotransfer ALT/SGPT 21 U/L (13-56); Albumin, Serum 3.6 g/dL (3.2-5.0); Alkaline Phosphatase 65 U/L (45-117); Anion Gap 6 (5-15); BUN 12 mg/dL (7-18); BUN/Creat Ratio 9.8 RATIO (10-20); CRP < 2.90 mg/L (0.0-3.0); Calcium,Total 8.6 mg/dL (8.5-10.1); Chloride 107 mmol/L (98-107); Creatinine, Serum 1.22 mg/dL (0.55-1.02); EST Glomerular Filtration Rate 50 mL/min (>60); Est Glom Filt Rate - Afr Amer 60 mL/min (>60); Globulin 3.2 g/dL (2.2-4.2); Glucose 97 mg/dL (74-106); Potassium 3.9 mmol/L (3.5-5.1); Protein, Total 6.8 g/dL (6.4-8.2); Sodium Level 139 mmol/L (136-145); Thyroid Stim Hormone (TSH) 1.09 uIU/mL (0.358-3.74)
[2020-03-22 18:23] LABS: Protein, Urine (Random) 13.3 mg/dL (<11.9); Protein:Creat Ratio 207 mg/g CRE (0-200)
[2020-03-22 18:30] LABS: Vitamin B12 381 pg/mL (211-911)
[2020-03-22 18:33] LABS: Color, Urine Yellow (Yellow); Glucose, Dipstick Normal (Normal); Ketone-Dipstick Negative (Negative); Leukocyte Esterase-Dipstick Negative /ul (Negative); Nitrite-Dipstick Negative (Negative); Occult Blood-Urine Negative /ul (Negative); Protein-Dipstick Negative (Negative); Urine Bilirubin Dipstick Negative (Negative); Urine Clarity Sl. Cloudy (Clear); Urine Urobilinogen Normal (Normal)
[2020-03-25 03:06] LABS: QNTFERON TB Mitogen Value > 10.00 IU/mL (.); QNTFERON TB Nil Value 0.02 IU/mL (.); QNTFERON TB1+ Ag Value 0.02 IU/mL (.); QNTFERON TB2+ Ag Value 0.01 IU/mL (.)
[2020-03-25 03:28] LABS: QNTIFERON TB Positive Criteria Negative (Negative)
== END ==
PROVIDERS: PCP Internal Medicine; Referring Provider Internal Medicine Rheumatology; Visit Provider Internal Medicine Rheumatology
DX: M06.4 Inflammatory polyarthropathy (principal); M79.7 Fibromyalgia; I73.00 Raynaud's syndrome without gangrene; M70.61 Trochanteric bursitis, right hip; R53.82 Chronic fatigue, unspecified; R41.3 Other amnesia; R19.7 Diarrhea, unspecified; E03.9 Hypothyroidism, unspecified; G43.909 Migraine, unspecified, not intractable, without status migrainosus; Z87.11 Personal history of peptic ulcer disease; M15.9 Polyosteoarthritis, unspecified
CPT/HCPCS: 36415; 71046; 80053; 81002; 82140; 82570; 82607; 83921; 84156; 84443; 85025; 85652; 86140; 86480

== ENCOUNTER → 2020-03-24 | Outpatient (CLI) | payer OTHER, SELFPAY | END | disposition home or self-care (01) | LOC: LABSPEC 14:01 | PROVIDERS: PCP Internal Medicine; Referring Provider Internal Medicine; Visit Provider Internal Medicine | DX: R19.7 Diarrhea, unspecified (principal); R41.3 Other amnesia | CPT/HCPCS: 82274; 83630; 87177; 87209; 87493; 87506 ==

== ENCOUNTER → 2020-07-13 14:50 | Outpatient (CLI) | payer OTHER, SELFPAY ==
--- NOTE | 2020-07-13 14:53 | RAD_ITS ---
STUDY: X-RAY - CERVICAL SPINE REASON FOR EXAM: Female, 49 years old. neck pain TECHNIQUE: 5 view(s) of the cervical spine were obtained. COMPARISON: None FINDINGS: Normal anterior atlantoaxial articulation. Normal odontoid process. Normal cervical lordosis. There is C4-5 and C5-6 endplate spondylosis. There is C4-5 and C5-6 degenerative disc disease with multilevel disc space narrowing. Normal visualized intervertebral neuroforamina. The soft tissue structures are unremarkable. RAD/Cerv Spine 4 or 5 Views IMPRESSION: Degenerative disc disease at C4-5 and C5-6. Electronically Signed: Bia Cain, at 5:39 EDT Tel , Service support ,
[2020-07-13 17:31] LABS: Color, Urine Yellow (Yellow); Glucose, Dipstick Normal (Normal); Ketone-Dipstick Negative (Negative); Leukocyte Esterase-Dipstick Negative /ul (Negative); Nitrite-Dipstick Negative (Negative); Occult Blood-Urine Negative /ul (Negative); Protein-Dipstick Negative (Negative); Urine Bilirubin Dipstick Negative (Negative); Urine Clarity Clear (Clear); Urine Urobilinogen Normal (Normal)
[2020-07-13 17:33] LABS: Absolute Lymphocyte Count 0.32 X10^3/uL (0.83-4.51); Absolute Neutrophil Count 5.8 X10^3/uL (2.0-7.7); Basophil# 0.02 X10^3/uL; Basophil% 0.3 % (0-1); Hematocrit 46.4 % (37-47); Lymphocyte # 0.32 X10^3/ul (4.0); Mean Corp Hgb Conc 32.3 g/dL (32-36); Mean Corpuscular Hgb 31.2 pg (27.0-32.0); Mean Corpuscular Volume 96.5 fL (81-99); Mean Platelet Vol. 10.5 fl (6.2-12.0); Monocyte# 0.19 X10^3/uL; NRBC Flagged by Analyzer 0 % (0-5); Neutrophil # 5.78 X10^3/uL (2.7-7.7); Neutrophil % 90.6 % (47-70); POSITIVE DIFFERENTIAL YES; Platelet Count 292 K/mm3 (150-450); RBC Distribution Width CV 12.5 % (11.6-14.6); RBC Distribution Width SD 44.7 fl (35.1-43.9); Red Blood Count 4.81 M/mm3 (4.2-5.4); White Blood Count 6.4 K/mm3 (4.4-11.0)
[2020-07-13 17:52] LABS: ALB/GLOB Ratio 1.1 RATIO (0.9-2.4); AST(SGOT) 15 U/L (15-37); Alanine Aminotransfer ALT/SGPT 20 U/L (13-56); Albumin, Serum 3.7 g/dL (3.2-5.0); Alkaline Phosphatase 69 U/L (45-117); Anion Gap 6 (5-15); BUN 13 mg/dL (7-18); BUN/Creat Ratio 10.5 RATIO (10-20); Calcium,Total 8.8 mg/dL (8.5-10.1); Chloride 107 mmol/L (98-107); Creatinine, Serum 1.24 mg/dL (0.55-1.02); EST Glomerular Filtration Rate 49 mL/min (>60); Est Glom Filt Rate - Afr Amer 59 mL/min (>60); Globulin 3.4 g/dL (2.2-4.2); Glucose 94 mg/dL (74-106); Protein, Total 7.1 g/dL (6.4-8.2); Sodium Level 140 mmol/L (136-145)
[2020-07-13 17:56] LABS: Protein, Urine (Random) 22.4 mg/dL (<11.9); Protein:Creat Ratio 246 mg/g CRE (0-200)
[2020-07-13 18:13] LABS: Differential Comment SCANNED; Differential Indicated SCAN CRITERIA MET
== END ==
PROVIDERS: PCP Internal Medicine; Referring Provider Internal Medicine Rheumatology; Visit Provider Internal Medicine Rheumatology
DX: M54.2 Cervicalgia (principal); M06.4 Inflammatory polyarthropathy; M79.7 Fibromyalgia; I73.00 Raynaud's syndrome without gangrene; M70.61 Trochanteric bursitis, right hip; R53.82 Chronic fatigue, unspecified; E03.9 Hypothyroidism, unspecified; G43.909 Migraine, unspecified, not intractable, without status migrainosus; Z87.11 Personal history of peptic ulcer disease; M15.9 Polyosteoarthritis, unspecified
CPT/HCPCS: 36415; 72050; 80053; 81002; 82570; 84156; 85025

== ENCOUNTER → 2020-09-22 13:21 | Outpatient (CLI) | payer OTHER, SELFPAY ==
[2020-09-22 15:11] LABS: Color, Urine Yellow (Yellow); Glucose, Dipstick Normal (Normal); Ketone-Dipstick Negative (Negative); Leukocyte Esterase-Dipstick Negative /ul (Negative); Nitrite-Dipstick Negative (Negative); Occult Blood-Urine Negative /ul (Negative); Protein-Dipstick Negative (Negative); Specific Gravity, Urine 1.005 (1.002-1.030); Urine Bilirubin Dipstick Negative (Negative); Urine Clarity Clear (Clear); Urine Urobilinogen Normal (Normal)
[2020-09-22 15:12] LABS: Absolute Lymphocyte Count 0.58 X10^3/uL (0.83-4.51); Absolute Neutrophil Count 7.6 X10^3/uL (2.0-7.7); Basophil# 0.04 X10^3/uL; Basophil% 0.5 % (0-1); Eosinophil# 0.01 X10^3/uL; Eosinophils% 0.1 % (0-5); Hematocrit 47.9 % (37-47); Hemoglobin 15.3 g/dL (12.0-15.0); Lymphocyte # 0.58 X10^3/ul (4.0); Lymphocyte % 6.7 % (19-41); Mean Corp Hgb Conc 31.9 g/dL (32-36); Mean Corpuscular Hgb 31.2 pg (27.0-32.0); Mean Corpuscular Volume 97.6 fL (81-99); Mean Platelet Vol. 10.2 fl (6.2-12.0); Monocyte# 0.42 X10^3/uL; Monocyte% 4.8 % (0-10); NRBC Flagged by Analyzer 0 % (0-5); Neutrophil # 7.56 X10^3/uL (2.7-7.7); Neutrophil % 86.8 % (47-70); POSITIVE DIFFERENTIAL YES; Platelet Count 302 K/mm3 (150-450); RBC Distribution Width CV 12.9 % (11.6-14.6); RBC Distribution Width SD 46.2 fl (35.1-43.9); Red Blood Count 4.91 M/mm3 (4.2-5.4); White Blood Count 8.7 K/mm3 (4.4-11.0)
[2020-09-22 15:13] LABS: Differential Indicated SCAN CRITERIA MET
[2020-09-22 15:31] LABS: ALB/GLOB Ratio 1.1 RATIO (0.9-2.4); AST(SGOT) 17 U/L (15-37); Alanine Aminotransfer ALT/SGPT 30 U/L (13-56); Alkaline Phosphatase 94 U/L (45-117); Anion Gap 6 (5-15); BUN 14 mg/dL (7-18); BUN/Creat Ratio 10.3 RATIO (10-20); Calcium,Total 8.7 mg/dL (8.5-10.1); Chloride 106 mmol/L (98-107); Creatinine, Serum 1.36 mg/dL (0.55-1.02); EST Glomerular Filtration Rate 44 mL/min (>60); Est Glom Filt Rate - Afr Amer 53 mL/min (>60); Globulin 3.6 g/dL (2.2-4.2); Glucose 98 mg/dL (74-106); Potassium 4.2 mmol/L (3.5-5.1); Protein, Total 7.6 g/dL (6.4-8.2); Sodium Level 140 mmol/L (136-145)
[2020-09-22 15:32] LABS: Protein, Urine (Random) 14.6 mg/dL (<11.9); Protein:Creat Ratio 215 mg/g CRE (0-200)
== END ==
PROVIDERS: PCP Internal Medicine; Referring Provider Internal Medicine Rheumatology; Visit Provider Internal Medicine Rheumatology
DX: M06.09 Rheumatoid arthritis without rheumatoid factor, multiple sites (principal); Z79.899 Other long term (current) drug therapy; M79.7 Fibromyalgia; M25.512 Pain in left shoulder; M70.61 Trochanteric bursitis, right hip; R53.82 Chronic fatigue, unspecified; E03.9 Hypothyroidism, unspecified; G43.909 Migraine, unspecified, not intractable, without status migrainosus; Z87.11 Personal history of peptic ulcer disease
CPT/HCPCS: 36415; 80053; 81002; 82570; 84156; 85025

== ENCOUNTER → 2020-09-28 13:11 | Outpatient (CLI) | payer OTHER, SELFPAY ==
--- NOTE | 2020-09-28 13:13 | RAD_ITS ---
STUDY: X-RAY - RIGHT KNEE REASON FOR EXAM: Female, 49 years old. Right knee pain, swelling TECHNIQUE: 4 view(s) of the knee. COMPARISON: None. FINDINGS: Normal visualized distal femur. Normal visualized proximal tibia and fibula. Normal proximal tibiofibular articulation. Normal medial femorotibial compartment. Normal lateral femorotibial compartment. Normal patellofemoral articulation. The soft tissue structures are unremarkable. RAD/Knee 4 or More Views IMPRESSION: Within normal limits x-ray examination of the knee. Electronically Signed: Dorita Hines MD at 18:20 EST Tel , Service support ,
== END ==
PROVIDERS: PCP Internal Medicine; Referring Provider Anesthesiology Pain Medicine; Visit Provider Anesthesiology Pain Medicine
DX: M25.561 Pain in right knee (principal)
CPT/HCPCS: 73564

== ENCOUNTER 2020-10-11 13:21 | Outpatient (RCR) | payer OTHER, SELFPAY ==
--- NOTE | 2020-10-11 14:06 | HP.PTEVAL_ITS ---
Patient's Visit Information KRISTIN FUENTES is a 49 year old F referred to Physical Therapy by Dr. Rosalinda Garrett DO with a diagnosis of vertigo. Date of Evaluation: 10/11/20 Physical Therapist: Justin Hinkle, KELLEYT, OCS, CSCS - Visit Plan Frequency: 1x/Week Duration: 4 Weeks Plan: weekly as needed x 3-4 for positional treatments and balnce checks. Next session check positional and balance if doing better. - Subjective I have been falling and fell really bad and hit face needing stitches around mouth. Not sure why she fell. Realized it is probably vertigo. Went to [facility] who treated her for BPPV. Also down 30% hearing in right ear. Has had vertigo for a couple months. Insidious. has autoimmune and was not feeling good for long time. Gets dizzy when sits up. Now daily when she bends or lies or turns head . This last a minute. Feels like whole body is off in between these episodes. Has had blood tests and low b12 and vitamin D and taking meds for those and shots. Was spinning this morning getting out of bed. Feels like fall was from dizzyness. Scared to do much at home, will not stand on high surfaces at home. 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 Sleep is not great, not sure why. Spends day straightening up house and cooking dinner. - Objective Walks normal and transfers normal. Does not feel steady though all the time. cervical aROM WFL and without pain. VOR walking is tolerable. - L hallpike gil. + R hallpike gil for up torsional nystagmus 8 seconds. Treated with R janina then - HD test. - Balance Scores Functional Gait Assessment Score: 28 % Disability: 6.6700 CATSIB Score (Max score 120 seconds): 95 - Goals Goal 1:: abolish dizzyness with position changes of head. Goal Time Frame: 2-4 Weeks Goal 2:: Pt feel 90% back to normal with acitivities Goal Time Frame: 2-4 Weeks Goal 3:: DHI score of 10 or less Goal Time Frame: 2-4 Weeks - Rehabilitation Potential Physical Therapy Diagnosis: R post canal BPPV Rehabilitation Potential: Excellent - Anticipated Interventions Patient/Client Instruction: Educate patient on: Condition, Plan of Care For the Purpose of:: To increase tolerance to activity/condition/position Therapeutic Exercise to Include: Balance training Comment: vestibular /positional For the Purpose of:: To increase tolerance to activity/condition/position, To improve ability of physical actions for home/community/work/leisure, To improve gait and locomotor functions Thank you for the opportunity to evaluate your patient. For Medicare and Medicare HMO plans, please review the plan of care and approve it. It will need to be FAXED BACK to us at [phone] for Medicare purposes. For Medicare only, by signing this I certify the plan of care. Please let me know if there are questions or concerns regarding this plan of care. Physician Signature: Date:
--- NOTE | 2020-11-27 15:55 | HP.PT.NRP ---
KRISTIN FUENTES was seen in my office for initial evaluation on 10/11/20. The following Plan of Care was established for this patient: Initial Frequency: 1x/Week Initial Duration: 4 Weeks Patient/Client Instruction: Educate patient on: Condition, Plan of Care For the Purpose of:: To increase tolerance to activity/condition/position Therapeutic Exercise to Include: Balance training For the Purpose of:: To increase tolerance to activity/condition/position, To improve ability of physical actions for home/community/work/leisure, To improve gait and locomotor functions This patient was last seen in our office 10/11/20. Pertinent comments regarding their Physical therapy will appear below: Pt seen one visit for evaluation adn treat for BPPV. Was treated and POC set but pt did not return for any further visits. At this point, it has been over 6 weeks adn I will discontinue from my care. At this point I will be discontinuing this patient from physical therapy. I would be happy to see this patient again in the future if found appropriate by the physician. Thank you! Justin Hinkle, DPT, OCS, CSCS
== END 2020-10-11 19:00 | disposition home or self-care (01) ==
LOC: PT 13:21
PROVIDERS: PCP Internal Medicine; Referring Provider Internal Medicine; Visit Provider Internal Medicine
DX: R42 Dizziness and giddiness (principal)
CPT/HCPCS: 97161

== ENCOUNTER → 2020-10-17 | Outpatient (CLI) | payer OTHER, SELFPAY | END | disposition home or self-care (01) | LOC: LABSPEC 10:11 | PROVIDERS: PCP Internal Medicine; Referring Provider Otolaryngology Otolaryngology/Facial Plastic Surgery; Visit Provider Otolaryngology Otolaryngology/Facial Plastic Surgery | DX: Z11.59 Encounter for screening for other viral diseases (principal) | CPT/HCPCS: 87635; C9803; U0003 ==

== ENCOUNTER → 2020-11-14 15:45 | Outpatient (CLI) | payer OTHER, SELFPAY ==
[2020-11-14 18:32] LABS: ALB/GLOB Ratio 1.2 RATIO (0.9-2.4); AST(SGOT) 14 U/L (15-37); Alanine Aminotransfer ALT/SGPT 33 U/L (13-56); Albumin, Serum 3.6 g/dL (3.2-5.0); Alkaline Phosphatase 63 U/L (45-117); Anion Gap 5 (5-15); BUN 18 mg/dL (7-18); BUN/Creat Ratio 14.8 RATIO (10-20); Calcium,Total 8.9 mg/dL (8.5-10.1); Chloride 107 mmol/L (98-107); Creatinine, Serum 1.22 mg/dL (0.55-1.02); EST Glomerular Filtration Rate 50 mL/min (>60); Est Glom Filt Rate - Afr Amer 60 mL/min (>60); Globulin 3.1 g/dL (2.2-4.2); Glucose 107 mg/dL (74-106); Protein, Total 6.7 g/dL (6.4-8.2); Sodium Level 138 mmol/L (136-145)
== END ==
PROVIDERS: PCP Internal Medicine; Referring Provider Internal Medicine Rheumatology; Visit Provider Internal Medicine Rheumatology
DX: M06.09 Rheumatoid arthritis without rheumatoid factor, multiple sites (principal); Z79.899 Other long term (current) drug therapy; M79.7 Fibromyalgia; M25.512 Pain in left shoulder; M70.61 Trochanteric bursitis, right hip; R53.82 Chronic fatigue, unspecified; E03.9 Hypothyroidism, unspecified; G43.909 Migraine, unspecified, not intractable, without status migrainosus; Z87.11 Personal history of peptic ulcer disease
CPT/HCPCS: 36415; 80053

== ENCOUNTER → 2021-05-01 13:22 | Outpatient (CLI) | payer OTHER, SELFPAY ==
[2021-05-01 15:05] LABS: Absolute Lymphocyte Count 0.44 X10^3/uL (0.83-4.51); Absolute Neutrophil Count 7.1 X10^3/uL (2.0-7.7); Basophil# 0.02 X10^3/uL; Basophil% 0.2 % (0-1); Eosinophil# 0.01 X10^3/uL; Eosinophils% 0.1 % (0-5); Hematocrit 43.8 % (37-47); Hemoglobin 13.8 g/dL (12.0-15.0); Lymphocyte # 0.44 X10^3/ul (0.83-4.51); Lymphocyte % 5.4 % (19-41); Mean Corp Hgb Conc 31.5 g/dL (32-36); Mean Corpuscular Hgb 31.4 pg (27.0-32.0); Mean Corpuscular Volume 99.5 fL (81-99); Mean Platelet Vol. 10.6 fl (6.2-12.0); Monocyte# 0.47 X10^3/uL; Monocyte% 5.8 % (0-10); NRBC Flagged by Analyzer 0 % (0-5); Neutrophil # 7.09 X10^3/uL (2.7-7.7); Neutrophil % 87.8 % (47-70); POSITIVE DIFFERENTIAL YES; Platelet Count 261 K/mm3 (150-450); RBC Distribution Width CV 13.3 % (11.6-14.6); RBC Distribution Width SD 48.8 fl (35.1-43.9); White Blood Count 8.1 K/mm3 (4.4-11.0)
[2021-05-01 15:31] LABS: ALB/GLOB Ratio 1.1 RATIO (0.9-2.4); AST(SGOT) 20 U/L (15-37); Alanine Aminotransfer ALT/SGPT 26 U/L (13-56); Albumin, Serum 3.6 g/dL (3.2-5.0); Alkaline Phosphatase 66 U/L (45-117); Anion Gap 4 (5-15); BUN 16 mg/dL (7-18); BUN/Creat Ratio 13.3 RATIO (10-20); Calcium,Total 8.9 mg/dL (8.5-10.1); Chloride 108 mmol/L (98-107); EST Glomerular Filtration Rate 51 mL/min (>60); Est Glom Filt Rate - Afr Amer 61 mL/min (>60); Globulin 3.2 g/dL (2.2-4.2); Glucose 91 mg/dL (74-106); Potassium 3.9 mmol/L (3.5-5.1); Protein, Total 6.8 g/dL (6.4-8.2); Sodium Level 141 mmol/L (136-145)
[2021-05-01 15:53] LABS: Differential Indicated SCAN CRITERIA MET
[2021-05-01 15:54] LABS: Anisocytosis RARE; Macrocytosis RARE; Platelet Estimate ADEQUATE (ADEQ); Red Cell Morphology N CHROM NORMAL (NORM C&C)
== END ==
PROVIDERS: PCP Internal Medicine; Referring Provider Internal Medicine Rheumatology; Visit Provider Internal Medicine Rheumatology
DX: M06.09 Rheumatoid arthritis without rheumatoid factor, multiple sites (principal); Z79.899 Other long term (current) drug therapy; M79.7 Fibromyalgia; M25.512 Pain in left shoulder; M76.10 Psoas tendinitis, unspecified hip; R53.82 Chronic fatigue, unspecified; E03.9 Hypothyroidism, unspecified; G43.909 Migraine, unspecified, not intractable, without status migrainosus; Z87.11 Personal history of peptic ulcer disease
CPT/HCPCS: 36415; 80053; 85025

== ENCOUNTER → 2021-05-03 14:02 | Outpatient (CLI) | payer OTHER, SELFPAY ==
--- NOTE | 2021-05-03 14:05 | RAD_ITS ---
INDICATION: BACK PAIN EXAMINATION/TECHNIQUE: X-RAY - XR Spine Lumbar Min 4 Views COMPARISON: None. FINDINGS: VERTEBRAE: Preserved vertebral body height. No fracture. No spondylolisthesis. Preservation of the normal lumbar lordosis. Mild multilevel facet arthropathy. DISCS: Disc spaces are maintained. INCLUDED ABDOMEN: Included bowel gas pattern is non-obstructive. RAD/L/S Spine Min 4 Views IMPRESSION: No acute abnormalities. Mild multilevel facet arthropathy. Large amount of retained stool in colon. Electronically Signed: Yinka East MD at 21:31 EDT Tel , Service support ,
== END ==
PROVIDERS: PCP Internal Medicine; Referring Provider Nurse Practitioner Family; Visit Provider Nurse Practitioner Family
DX: M54.9 Dorsalgia, unspecified (principal)
CPT/HCPCS: 72110

== ENCOUNTER 2021-05-24 13:30 | Outpatient (RCR) | payer OTHER, SELFPAY ==
--- NOTE | 2021-05-17 14:25 | HP.PTEVAL_ITS ---
Patient's Visit Information KRISTIN FUENTES is a 50 year old F referred to Physical Therapy by DANYEL Nobles with a diagnosis of LUMBAR SPONDYLOSIS,LUMBOSCARAL RADICULOPATHY,RIGHT KNEE ,LUMBAR IDDD. Date of Evaluation: 05/15/21 Physical Therapist: Levi Serrano, PT, Cert MDT, OCS - Visit Plan Frequency: 2x /Week Duration: 4 Weeks Plan: CAUTION WITH BEING AGGRESSIVE WITH EX'S DUE TO COMORBITIES. PT INTERVETIONS KWADWO EX'S ,GRADED DLS AND POSTIRAL EX'S KAREN AND MODALITIES KAREN,PATIENT EDUCATION - Subjective This 50 y/o female for physical therapy with low back pain with radicular symptoms left leg and right knee pain. Patient has had low back pain and left leg symptoms about one month . Started intermittently and worsen overtime. Patient seen pain pain management and plans to do epidural injections. MEDS tramdol, gabepetin. Patient c/o paresthesia/tingling LLE . Coughing/sneezing/straining. Bowel/bladder -. Patient has difficulty sleeping . But ,no abnormal night pain. Aggravating factors bending, lifting, sitting ,tw isting ,walking and standing. Alleviating factors MEDS. Patient symptoms affects work demnads and housework tasks. Symptoms worse in squatting /kneeling . Pain is global.Worse at night. Patient has comorbities influences condition michrondrial disease causes rhamdolyis with any type of exercises, stage chronic kidney disease, autoimmune disease , RA , raynuads. Patient symptoms affects QOL. SOCIAL: . VOCATION: [employer] - Pain Left Back Pain Intensity (Out of 10): 8 Pain Intensity Range: 10 Comment: worst Left Lower Extremity Pain Intensity (Out of 10): 10 Pain Intensity Range: 10 Right Knee Pain Intensity (Out of 10): 2 Pain Intensity Range: 10 - Objective POSTURE: mild forward posture. PALAPTION: unremarkable. NEURO: C/O parathesia/tingling LLE ,light touch intact, reflexes 1/3 L3-4,L4-5,L5-S1. MMT: quads/hams 4/5,hip flexion 4-/5 ankle 4/5. LUMBAR ROM: flexion mod loss pain ,extension min loss ,side glides min loss - Special Tests L/S Slump test left side: Negative L/S Slump test right side: Positive L/S Left Straight Leg Raise: Positive L/S Right Straight Leg Raise: Negative Lumbar Standing: Flexion - Mechanical Response: No effect Lumbar Standing: Flexion - Symptoms During Testing: Increases Lumbar Standing: Flexion - Symptoms After Testing: Worse Lumbar Standing: Extension - Mechanical Response: No effect Lumbar Standing: Extension - Symptoms During Testing: Decreases Lumbar Standing: Extension - Symptoms After Testing: No better Comments:: RIGHT LEG Lumbar Standing: Right Side Glides - Mechanical Response: No effect Lumbar Standing: Right Side Center - Symptoms During Testing: No effect Lumbar Standing: Right Side Center - Symptoms After Testing: No effect Lumbar Standing: Left Side Center - Mechanical Response: No effect Lumbar Standing: Left Side Center - Symptoms During Testing: No effect Lumbar Standing: Left Side Center - Symptoms After Testing: No effect Lumbar Lying: Flexion - Mechanical Response: No effect Lumbar Lying: Flexion - Symptoms During Testing: Increases Lumbar Lying: Flexion - Symptoms After Testing: Worse Lumbar Lying: Extension - Mechanical Response: No effect Lumbar Lying: Extension - Symptoms During Testing: Decreases Lumbar Lying: Extension - Symptoms After Testing: No better - Goals Goal 1:: Patient to be I with HEP Goal Time Frame: 4-6 Weeks Goal 2:: Patient improve posture/body mechanics for ADLS Goal Time Frame: 4-6 Weeks Goal 3:: Patient to decrease lumbar radiculopathy by 50 % or > to improve function Goal Time Frame: 4-6 Weeks Goal 4:: Patient to improve lumbar ROM for function of recovery Goal Time Frame: 4-6 Weeks Goal 5:: Patient to improve back owestry score by 5 points or> to improve function/QOL. Goal Time Frame: 4-6 Weeks - Rehabilitation Potential Physical Therapy Diagnosis: This patient has lumbar radiculopathy with possible disc involvement with derangement below knee worse with test movements ,position decrease lumbar ROM affects ADLS' with walking and standing some better with posture correction and extension thus benefit from MRI Rehabilitation Potential: Good - Anticipated Interventions Patient/Client Instruction: Educate patient on: Condition, Plan of Care For the Purpose of:: To decrease pain, To decrease swelling/inflammation, To increase ROM, To improve muscle performance and motor function, To improve ability to perform ADL's, To increase tolerance to activity/condition/position, To improve ability of physical actions for home/community/work/leisure, To improve health of tissue, To decrease soft tissue restriction, To increase flexibility/ROM, To reduce risk of recurrence, To improve ability to perform tasks related to life management Therapeutic Exercise to Include: Strength training, Body mechanics, Postural training, Active ROM, Dynamic Lumbar Stabilization, Kwadwo Exercises For the Purpose of:: To decrease pain, To increase ROM, To improve muscle performance and motor function, To improve ability to perform ADL's, To increase tolerance to activity/condition/position, To improve ability of physical actions for home/community/work/leisure, To improve health of tissue, To decrease soft tissue restriction, To increase flexibility/ROM, To reduce risk of recurrence, To improve ability to perform tasks related to life management TENS: Yes IF ES: Yes Thermo therapy (hot pack): Yes Ultrasound (thermal/non thermal): Yes For the Purpose of:: To decrease pain, To decrease swelling/inflammation, To improve nutrient delivery to tissue, To increase oxygenation perfusion, To improve health of tissue Thank you for the opportunity to evaluate your patient. For Medicare and Medicare HMO plans, please review the plan of care and approve it. It will need to be FAXED BACK to us at [phone] for Medicare purposes. For Medicare only, by signing this I certify the plan of care. Please let me know if there are questions or concerns regarding this plan of care. Physician Signature: Da te:
--- NOTE | 2021-08-24 07:09 | HP.PT.NRP ---
KRISTIN FUENTES was seen in my office for initial evaluation on 05/15/21. The following Plan of Care was established for this patient: Initial Frequency: 2x /Week Initial Duration: 4 Weeks Patient/Client Instruction: Educate patient on: Condition, Plan of Care For the Purpose of:: To decrease pain, To decrease swelling/inflammation, To increase ROM, To improve muscle performance and motor function, To improve ability to perform ADL's, To increase tolerance to activity/condition/position, To improve ability of physical actions for home/community/work/leisure, To improve health of tissue, To decrease soft tissue restriction, To increase flexibility/ROM, To reduce risk of recurrence, To improve ability to perform tasks related to life management Therapeutic Exercise to Include: Strength training, Body mechanics, Postural training, Active ROM, Dynamic Lumbar Stabilization, Diamond Exercises For the Purpose of:: To decrease pain, To increase ROM, To improve muscle performance and motor function, To improve ability to perform ADL's, To increase tolerance to activity/condition/position, To improve ability of physical actions for home/community/work/leisure, To improve health of tissue, To decrease soft tissue restriction, To increase flexibility/ROM, To reduce risk of recurrence, To improve ability to perform tasks related to life management TENS: Yes IF ES: Yes Thermo therapy (hot pack): Yes Ultrasound (thermal/non thermal): Yes For the Purpose of:: To decrease pain, To decrease swelling/inflammation, To improve nutrient delivery to tissue, To increase oxygenation perfusion, To improve health of tissue This patient was last seen in our office . Pertinent comments regarding their Physical therapy will appear below: At this point I will be discontinuing this patient from physical therapy. I would be happy to see this patient again in the future if found appropriate by the physician. Thank you! Levi Serrano, PT, Cert MDT, OCS Balance/Gait/Functional tests - Balance/Special Test Scores Oswestry Low Back Score: 0
== END 2021-05-24 19:00 | disposition home or self-care (01) ==
LOC: PT 13:30
PROVIDERS: PCP Internal Medicine; Referring Provider Nurse Practitioner Family; Visit Provider Nurse Practitioner Family
DX: M25.561 Pain in right knee (principal); M51.37 Other intervertebral disc degeneration, lumbosacral region; M47.817 Spondylosis without myelopathy or radiculopathy, lumbosacral region; M54.17 Radiculopathy, lumbosacral region
CPT/HCPCS: 97032; 97035; 97110; 97162

== ENCOUNTER 2021-09-27 13:30 | Outpatient (RCR) | payer OTHER, SELFPAY ==
--- NOTE | 2021-09-24 08:31 | HP.PTEVAL_ITS ---
Patient's Visit Information KRISTIN FUENTES is a 50 year old F referred to Physical Therapy by DANYEL Alvarado with a diagnosis of Vertigo. Date of Evaluation: 09/24/21 Physical Therapist: Justin Hinkle, KELLEYT, OCS, CSCS - Visit Plan Frequency: 1-2x /Week Duration: 2-4 Weeks Plan: 1-2x/week for 2-4 weeks as needed for positional treatments and vestibular therapy. - Subjective Just had lumbar fusion 08/16. Dizzyness started last Friday09/15/21 and just woke up that way. not sure what started it. Vomitted that day. Tried Holden and made her sick. It has gotten a lot better in the last 3 days. Spinniong was lasting a couple minutes first day and then sitting up and lying down made her dizzy or rolling i bed. [place] weird in betweeen...shaky. No falls. Had some spinning this morning gently sitting up in bed. Feels normal walking in , just has to be careful. sleeping is ot interrupted with dizzyness. 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 was a little goofy at first. Basic ADLs are getting done at home. Hobbies include reading and she can do that. Overall currently is 80% better. - Objective walks and trasnfers normal and I. cervical AROM WNL. Has lumbar support on from her surgery. UE AROM WFL and balance is good. - R hallpike gil. + L hallpike gil for up torsional nystagmus of 5 seconds. Treated with Holden then - HD test. - Balance/Special Test Scores Functional Gait Assessment Score: 29 % Disability: 3.3400 Dizziness Score: 54 - Goals Goal 1:: Abolish dizzyness 100% Goal Time Frame: 2-4 Weeks Goal 2:: Feel activities are back to normal without hesitation Goal Time Frame: 2-4 Weeks Goal 3:: <10 DHI score Goal Time Frame: 2-4 Weeks - Rehabilitation Potential Physical Therapy Diagnosis: BPPV L post canal Rehabilitation Potential: Good - Anticipated Interventions Patient/Client Instruction: Educate patient on: Condition, Plan of Care For the Purpose of:: To increase tolerance to activity/condition/position Comment: vestibular ex and maneuvers For the Purpose of:: To increase tolerance to activity/condition/position Thank you for the opportunity to evaluate your patient. For Medicare and Medicare HMO plans, please review the plan of care and approve it. It will need to be FAXED BACK to us at [phone] for Medicare purposes. For Medicare only, by signing this I certify the plan of care. Please let me know if there are questions or concerns regarding this plan of care. Physician Signature: Date:
--- NOTE | 2021-11-30 10:18 | HP.PT.NRP ---
KRISTIN FUENTES was seen in my office for initial evaluation on 09/24/21. The following Plan of Care was established for this patient: Initial Frequency: 1-2x /Week Initial Duration: 2-4 Weeks Patient/Client Instruction: Educate patient on: Condition, Plan of Care For the Purpose of:: To increase tolerance to activity/condition/position For the Purpose of:: To increase tolerance to activity/condition/position This patient was last seen in our office 09/27/21. Pertinent comments regarding their Physical therapy will appear below: Pt seen 2 visits of POC and was 95% improved. She cancelled her last visit and did not reschedule. At this point, it has been over 2 months adn i will dicontinue due to nonattendance. At this point I will be discontinuing this patient from physical therapy. I would be happy to see this patient again in the future if found appropriate by the physician. Thank you! Justin Hinkle, DPT, OCS, CSCS Balance/Gait/Functional tests - Balance/Special Test Scores Functional Gait Assessment Score: 29 % Disability: 3.3400 Dizziness Score: 54
== END 2021-09-27 19:00 | disposition home or self-care (01) ==
LOC: PT 13:30
PROVIDERS: PCP Internal Medicine; Visit Provider Nurse Practitioner
DX: R42 Dizziness and giddiness (principal)
CPT/HCPCS: 97161; 97530

== ENCOUNTER 2021-10-12 12:40 | Outpatient (CLI) | payer OTHER, SELFPAY ==
[2021-10-12 12:55] VITALS: BP 127/79; PULSE 104; RESP 18; TEMP 36.7; O2SAT 100; BMI 25.7
[2021-10-12] MEDS: 0.9% Saline Lock 10 ML Syringe IV (12:58)
[2021-10-12 13:30] VITALS: BP 133/62; PULSE 91; RESP 16; TEMP 37.2; O2SAT 99
[2021-10-12 14:15] VITALS: BP 125/58; PULSE 89; RESP 16; TEMP 37.5; O2SAT 99
== END 2021-10-12 14:30 | disposition home or self-care (01) ==
LOC: MS3OUT 12:41 → MS3 12:41
PROVIDERS: PCP Internal Medicine; Referring Provider Nurse Practitioner Adult Health; Visit Provider Nurse Practitioner Adult Health
DX: Z23 Encounter for immunization (principal); U07.1 COVID-19
CPT/HCPCS: J7050; M0245; Q0245; A4216

== ENCOUNTER 2022-01-15 13:09 | Outpatient (CLI) | payer OTHER, SELFPAY ==
[2022-01-15 13:23] LABS: Bacteria 0 SEEN /hpf (None Seen); Mucous, Urine 0 SEEN /hpf (<or=2+); White Blood Cells 0 SEEN /hpf (0-5)
[2022-01-15 15:19] LABS: Color, Urine Yellow (Yellow); Glucose, Dipstick Normal (Normal); Ketone-Dipstick Negative (Negative); Leukocyte Esterase-Dipstick Negative /ul (Negative); Nitrite-Dipstick Negative (Negative); Occult Blood-Urine 25 /ul (Negative); Protein-Dipstick 15 mg/dl (Negative); Urine Bilirubin Dipstick Negative (Negative); Urine Clarity Sl. Cloudy (Clear); Urine Urobilinogen Normal (Normal)
[2022-01-15 15:21] LABS: Absolute Neutrophil Count 6.4 X10^3/uL (2.0-7.7); Basophil# 0.01 X10^3/uL; Basophil% 0.1 % (0-1); Hematocrit 36.9 % (37-47); Hemoglobin 12.4 g/dL (12.0-15.0); Lymphocyte % 4.3 % (19-41); Mean Corp Hgb Conc 33.6 g/dL (32-36); Mean Corpuscular Hgb 31.2 pg (27.0-32.0); Mean Corpuscular Volume 92.7 fL (81-99); Mean Platelet Vol. 10.3 fl (6.2-12.0); Monocyte# 0.21 X10^3/uL; NRBC Flagged by Analyzer 0 % (0-5); Neutrophil % 92.2 % (47-70); POSITIVE DIFFERENTIAL YES; Platelet Count 303 K/mm3 (150-450); RBC Distribution Width CV 13.3 % (11.6-14.6); RBC Distribution Width SD 44.9 fl (35.1-43.9); Red Blood Count 3.98 M/mm3 (4.2-5.4)
[2022-01-15 15:40] LABS: Differential Indicated SCAN CRITERIA MET
[2022-01-15 16:06] LABS: ALB/GLOB Ratio 0.9 RATIO (0.9-2.4); AST(SGOT) 28 U/L (15-37); Alanine Aminotransfer ALT/SGPT 27 U/L (13-56); Albumin, Serum 3.3 g/dL (3.2-5.0); Alkaline Phosphatase 78 U/L (45-117); Anion Gap 7 (5-15); BUN 12 mg/dL (7-18); BUN/Creat Ratio 12.4 RATIO (10-20); Calcium,Total 8.5 mg/dL (8.5-10.1); Chloride 106 mmol/L (98-107); Cholesterol 269 mg/dL (200); Creatinine, Serum 0.96 mg/dL (0.55-1.02); EST Glomerular Filtration Rate 65 mL/min (>60); Est Glom Filt Rate - Afr Amer 78 mL/min (>60); Globulin 3.7 g/dL (2.2-4.2); Glucose 101 mg/dL (74-106); High Density Lipoprotein 104 mg/dL; Potassium 3.9 mmol/L (3.5-5.1); Sodium Level 139 mmol/L (136-145); Thyroid Stim Hormone (TSH) 1.56 uIU/mL (0.358-3.74); Triglycerides 91 mg/dL; Very Low Density Lipoprotein 18 mg/dL (5-40)
[2022-01-15 16:17] LABS: Vitamin B12 513 pg/mL (211-911); Vitamin D,25 Hydroxy 43.6 ng/mL
[2022-01-15 16:22] LABS: Microalbumin,Random Urine 65.7 mg/L (NO RANGE EST.); Microalbumin:Creatinine Ratio 94.9 mg/g CRE (<30 mg/g CRE)
[2022-01-15 16:32] LABS: Red Blood Cells-Urine 0-5 SEEN /hpf (0-5); Squamous Epithelial Cells - UA 0-5 SEEN /hpf (5-10)
[2022-01-15 18:16] LABS: Differential Comment SCANNED
== END 2022-01-15 23:59 | disposition home or self-care (01) ==
LOC: MTLAB 13:12
PROVIDERS: PCP Internal Medicine; Referring Provider Internal Medicine; Visit Provider Internal Medicine
DX: E55.9 Vitamin D deficiency, unspecified (principal); I10 Essential (primary) hypertension; E03.9 Hypothyroidism, unspecified; E53.8 Deficiency of other specified B group vitamins
CPT/HCPCS: 36415; 80053; 80061; 81001; 82043; 82306; 82570; 82607; 84443; 85025

== ENCOUNTER → 2022-05-07 | Outpatient (CLI) | payer OTHER, SELFPAY ==
[2022-05-07 17:50] LABS: Absolute Lymphocyte Count 0.73 X10^3/uL (0.83-4.51); Absolute Neutrophil Count 6.1 X10^3/uL (2.0-7.7); Basophil# 0.02 X10^3/uL; Basophil% 0.3 % (0-1); Eosinophil# 0.01 X10^3/uL; Eosinophils% 0.1 % (0-5); Hematocrit 40.1 % (37-47); Hemoglobin 13.7 g/dL (12.0-15.0); Lymphocyte # 0.73 X10^3/ul (0.83-4.51); Lymphocyte % 9.8 % (19-41); Mean Corp Hgb Conc 34.2 g/dL (32-36); Mean Corpuscular Hgb 31.4 pg (27.0-32.0); Mean Platelet Vol. 10.3 fl (6.2-12.0); Monocyte# 0.54 X10^3/uL; Monocyte% 7.3 % (0-10); NRBC Flagged by Analyzer 0 % (0-5); Neutrophil # 6.09 X10^3/uL (2.7-7.7); Platelet Count 323 K/mm3 (150-450); RBC Distribution Width SD 47.7 fl (35.1-43.9); Red Blood Count 4.36 M/mm3 (4.2-5.4); White Blood Count 7.4 K/mm3 (4.4-11.0)
[2022-05-07 18:09] LABS: ALB/GLOB Ratio 1.2 RATIO (0.9-2.4); AST(SGOT) 22 U/L (15-37); Alanine Aminotransfer ALT/SGPT 26 U/L (13-56); Alkaline Phosphatase 70 U/L (45-117); Anion Gap 8 (5-15); BUN 14 mg/dL (7-18); BUN/Creat Ratio 10.1 RATIO (10-20); Calcium,Total 9.3 mg/dL (8.5-10.1); Chloride 101 mmol/L (98-107); Creatinine, Serum 1.39 mg/dL (0.55-1.02); EST Glomerular Filtration Rate 42 mL/min (>60); Est Glom Filt Rate - Afr Amer 51 mL/min (>60); Globulin 3.2 g/dL (2.2-4.2); Glucose 107 mg/dL (74-106); Potassium 4.1 mmol/L (3.5-5.1); Protein, Total 7.2 g/dL (6.4-8.2); Sodium Level 136 mmol/L (136-145)
== END | disposition home or self-care (01) ==
PROVIDERS: PCP Internal Medicine; Referring Provider Internal Medicine Rheumatology; Visit Provider Internal Medicine Rheumatology
DX: M06.09 Rheumatoid arthritis without rheumatoid factor, multiple sites (principal); M79.7 Fibromyalgia; M25.512 Pain in left shoulder; M70.61 Trochanteric bursitis, right hip; R53.82 Chronic fatigue, unspecified; E03.9 Hypothyroidism, unspecified; G43.909 Migraine, unspecified, not intractable, without status migrainosus; Z87.11 Personal history of peptic ulcer disease; Z79.899 Other long term (current) drug therapy
CPT/HCPCS: 36415; 80053; 85025

== ENCOUNTER 2022-12-16 13:30 | Outpatient (RCR) | payer BC, SELFPAY ==
--- NOTE | 2022-12-02 14:06 | HP.PTEVAL ---
Patient's Visit Information KRISTIN FUENTES is a 51 year old F referred to Physical Therapy by Dr. Re López MD with a diagnosis of R lateral epicondylitis. Date of Evaluation: 12/02/22 Physical Therapist: Justin Hinkle DPT, OCS, CSCS - Visit Plan Frequency: 2x /Week Duration: 4-6 Weeks Plan: 2x/week for 2-4 weeks to start for ... 1/US nonthermal to R lat epicondyle. 2. cross friction massage to same. 3. teach eccentric strength for same. 4. monitor activity modificaiton, brace usage etc. Pt has raynauds so no ice massage. May have an injection in two weeks. Does not want ionto as it is not covered by insurance - Subjective I have tennis elbow on R side. I use a mouse alot. it started a couple weeks ago aggravating her and she thought it was her OA. Have not been doing anything different. Pain is lateral elbow R. Worse when using mouse or lifting coffe cup or glass. it hurts her to sleep. Wakes her up at night. may be lying on it. 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 Has started using L hand to copy and paste. Basic ADLS are getting done but they hurt to put socks on and pull things up.\. Hobbies: None, dinner, tv, straighten house. No regular ex - Pain R elbow lat Pain Intensity (Out of 10): 0 Pain Intensity Range: 0, 5 Comment: using it - Objective Walks and trasnfers normal. UE AROM WFL but wrist extension and end range flexion are painful at elbow, moreso with elbow extended. resisted testing is good and symmetrical in UE except R wrist extension whcih is painful and therefore weak at 3+ in r side. Tender max over R lat epicondyle at elbow. + R lat epicondyle tests with mid finger extension. Pt did not want other diagnoses included in evaluiation today, stay focussed on lat epicondylitis. Did not wish to pay for ionto phoresis and panda tick with covered treatments for this POC - Balance/Special Test Scores Quick DASH Score: 79.5450 - Goals Goal 1:: Full wrist aROM without pain Goal Time Frame: 4-6 Weeks Goal 2:: I management of condition Goal Time Frame: 4-6 Weeks Goal 3:: quick dash score 15 or better. Goal Time Frame: 4-6 Weeks - Rehabilitation Potential Physical Therapy Diagnosis: R lateral epiconylitis Rehabilitation Potential: Fair - Anticipated Interventions Patient/Client Instruction: Educate patient on: Condition, Plan of Care For the Purpose of:: To decrease pain, To improve nutrient delivery to tissue, To improve muscle performance and motor function, To improve ability of physical actions for home/community/work/leisure Therapeutic Exercise to Include: Strength training, Flexibilty training For the Purpose of:: To decrease pain, To decrease swelling/inflammation, To improve muscle performance and motor function, To increase tolerance to activity/condition/position Manual Therapy Techniques to Include: Mobilization, Soft tissue mobilization For the Purpose of:: To decrease pain, To improve nutrient delivery to tissue, To improve muscle performance and motor function, To improve ability of physical actions for home/community/work/leisure, To improve gait and locomotor functions Ultrasound (thermal/non thermal): Yes - nonthermal For the Purpose of:: To decrease pain, To improve nutrient delivery to tissue, To improve muscle performance and motor function Thank you for the opportunity to evaluate your patient. For Medicare and Medicare HMO plans, please review the plan of care and approve it. It will need to be FAXED BACK to us at [phone] for Medicare purposes. For Medicare only, by signing this I certify the plan of care. Please let me know if there are questions or concerns regarding this plan of care. Physician Signature: Date:
--- NOTE | 2022-12-16 14:06 | HP.PTDCSUM ---
It has been my pleasure to treat KRISTIN FUENTES referred by Dr. Re López MD, with the diagnosis of R lateral epicondylitis for a total of 5 visit(s). Discharge Date: 12/16/22 Please see the following information for a summary of their discharge status. Subjective: Will get injetion tomorrow. has to work alot in next month. Got arm brace and it really helps. Doing eccentrics and stretches and activitiy modfiicaiton at home. 01/24 over weekend. Overall 75% better. R elbow lat Pain Intensity (Out of 10): 0 % Improvement: 75 Objective/Function: Full aROM and stretching of R UE but pain end range of wrist extension adn still pretty tender over R lat epicondyle. strength is good but painful to extend wrist. Brace she has today is appropriate. Goal 1:: Full wrist aROM without pain Goal Progress: Progressing Goal 2:: I management of condition Goal Progress: Goal Met Goal 3:: quick dash score 15 or better. Goal Progress: Progressing Plan: d/c to [facility], Says she will get injection tomorrow. Discharge Comments: To doctor tomorrow for likely injection. If there are questions or concerns regarding this patient's physical therapy, please feel free to call me at [phone]. Thank you for the referral of this patient. Sincerely, Justin Hinkle, DPT, OCS, CSCS Balance/Gait/Functional tests - Balance/Special Test Scores Quick DASH Score: 43.1800
== END 2022-12-16 15:00 | disposition home or self-care (01) ==
LOC: PT 13:30
PROVIDERS: PCP Internal Medicine; Referring Provider Internal Medicine Rheumatology; Visit Provider Internal Medicine Rheumatology
DX: M06.00 Rheumatoid arthritis without rheumatoid factor, unspecified site (principal); Z79.899 Other long term (current) drug therapy; M79.7 Fibromyalgia; M77.11 Lateral epicondylitis, right elbow; M70.61 Trochanteric bursitis, right hip; R53.82 Chronic fatigue, unspecified
CPT/HCPCS: 97110; 97140; 97161; 97164

== ENCOUNTER → 2023-01-27 | Outpatient (CLI) | payer BC, SELFPAY ==
[2023-01-27 15:22] LABS: Absolute Lymphocyte Count 0.61 X10^3/uL (0.83-4.51); Absolute Neutrophil Count 6.4 X10^3/uL (2.0-7.7); Basophil# 0.03 X10^3/uL; Basophil% 0.4 % (0-1); Hematocrit 41.6 % (37-47); Hemoglobin 13.3 g/dL (12.0-15.0); Lymphocyte # 0.61 X10^3/ul (0.83-4.51); Lymphocyte % 8.1 % (19-41); Mean Corpuscular Hgb 31.1 pg (27.0-32.0); Mean Corpuscular Volume 97.4 fL (81-99); Mean Platelet Vol. 10.1 fl (6.2-12.0); Monocyte# 0.44 X10^3/uL; Monocyte% 5.9 % (0-10); NRBC Flagged by Analyzer 0 % (0-5); Neutrophil # 6.39 X10^3/uL (2.7-7.7); Neutrophil % 85.1 % (47-70); Platelet Count 312 K/mm3 (150-450); RBC Distribution Width SD 45.8 fl (35.1-43.9); Red Blood Count 4.27 M/mm3 (4.2-5.4); White Blood Count 7.5 K/mm3 (4.4-11.0)
[2023-01-27 15:33] LABS: ALB/GLOB Ratio 1.1 RATIO (0.9-2.4); AST(SGOT) 22 U/L (15-37); Alanine Aminotransfer ALT/SGPT 27 U/L (13-56); Albumin, Serum 3.7 g/dL (3.2-5.0); Alkaline Phosphatase 69 U/L (45-117); Anion Gap 5 (5-15); BUN 17 mg/dL (7-18); BUN/Creat Ratio 12.6 RATIO (10-20); Calcium,Total 9.4 mg/dL (8.5-10.1); Chloride 101 mmol/L (98-107); Creatinine, Serum 1.35 mg/dL (0.55-1.02); EST Glomerular Filtration Rate 44 mL/min (>60); Est Glom Filt Rate - Afr Amer 53 mL/min (>60); Globulin 3.3 g/dL (2.2-4.2); Glucose 87 mg/dL (74-106); Potassium 4.2 mmol/L (3.5-5.1); Sodium Level 138 mmol/L (136-145)
== END | disposition home or self-care (01) ==
PROVIDERS: PCP Internal Medicine; Referring Provider Internal Medicine Rheumatology; Visit Provider Internal Medicine Rheumatology
DX: M06.00 Rheumatoid arthritis without rheumatoid factor, unspecified site (principal); Z79.899 Other long term (current) drug therapy; M79.7 Fibromyalgia; M77.11 Lateral epicondylitis, right elbow; M70.61 Trochanteric bursitis, right hip; R53.82 Chronic fatigue, unspecified; E03.9 Hypothyroidism, unspecified; G43.909 Migraine, unspecified, not intractable, without status migrainosus; Z87.11 Personal history of peptic ulcer disease
CPT/HCPCS: 36415; 80053; 85025

== ENCOUNTER → 2023-04-18 | Outpatient (CLI) | payer BC, SELFPAY ==
[2023-04-18 17:43] LABS: Bacteria 0 SEEN /hpf (None Seen); Mucous, Urine 0 SEEN /hpf (<or=2+); Red Blood Cells-Urine 0 SEEN /hpf (0-5); Squamous Epithelial Cells - UA 0 SEEN /hpf (5-10); White Blood Cells 0 SEEN /hpf (0-5)
[2023-04-18 18:01] LABS: Color, Urine Yellow (Yellow); Glucose, Dipstick Normal (Normal); Ketone-Dipstick Negative (Negative); Leukocyte Esterase-Dipstick 25 /ul (Negative); Nitrite-Dipstick Negative (Negative); Occult Blood-Urine Negative /ul (Negative); Protein-Dipstick Negative (Negative); Specific Gravity, Urine 1.005 (1.002-1.030); Urine Bilirubin Dipstick Negative (Negative); Urine Clarity Clear (Clear); Urine Urobilinogen Normal (Normal)
== END | disposition home or self-care (01) ==
PROVIDERS: PCP Internal Medicine; Visit Provider Physician Assistant Surgical
DX: R10.9 Unspecified abdominal pain (principal)
CPT/HCPCS: 81001; 87086; 87088

== ENCOUNTER → 2023-04-22 | Outpatient (CLI) | payer BC, SELFPAY ==
[2023-04-22 17:31] LABS: Absolute Lymphocyte Count 0.95 X10^3/uL (0.83-4.51); Absolute Neutrophil Count 6.3 X10^3/uL (2.0-7.7); Basophil# 0.04 X10^3/uL; Basophil% 0.5 % (0-1); Eosinophil# 0.02 X10^3/uL; Eosinophils% 0.2 % (0-5); Hemoglobin 13.2 g/dL (12.0-15.0); Lymphocyte # 0.95 X10^3/ul (0.83-4.51); Lymphocyte % 11.8 % (19-41); Mean Corp Hgb Conc 31.4 g/dL (32-36); Mean Corpuscular Hgb 30.6 pg (27.0-32.0); Mean Corpuscular Volume 97.4 fL (81-99); Mean Platelet Vol. 9.4 fl (6.2-12.0); Monocyte# 0.64 X10^3/uL; Monocyte% 7.9 % (0-10); NRBC Flagged by Analyzer 0 % (0-5); Neutrophil # 6.32 X10^3/uL (2.7-7.7); Neutrophil % 78.4 % (47-70); Platelet Count 306 K/mm3 (150-450); RBC Distribution Width CV 13.4 % (11.6-14.6); Red Blood Count 4.31 M/mm3 (4.2-5.4); White Blood Count 8.1 K/mm3 (4.4-11.0)
[2023-04-22 17:45] LABS: Color, Urine Yellow (Yellow); Glucose, Dipstick Normal (Normal); Ketone-Dipstick Negative (Negative); Leukocyte Esterase-Dipstick 25 /ul (Negative); Nitrite-Dipstick Negative (Negative); Occult Blood-Urine 10 /ul (Negative); Protein-Dipstick Negative (Negative); Specific Gravity, Urine 1.005 (1.002-1.030); Urine Bilirubin Dipstick Negative (Negative); Urine Clarity Clear (Clear); Urine Urobilinogen Normal (Normal); Urine pH 6.5 (5.0 - 8.0)
[2023-04-22 17:46] LABS: Bacteria 0 SEEN /hpf (None Seen); Mucous, Urine 0 SEEN /hpf (<or=2+); Red Blood Cells-Urine 0 SEEN /hpf (0-5); Squamous Epithelial Cells - UA 0 SEEN /hpf (5-10)
[2023-04-22 18:04] LABS: Protein, Urine (Random) < 6.0 mg/dL (<11.9)
[2023-04-22 18:40] LABS: ALB/GLOB Ratio 1.2 RATIO (0.9-2.4); AST(SGOT) 23 U/L (15-37); Alanine Aminotransfer ALT/SGPT 25 U/L (13-56); Alkaline Phosphatase 78 U/L (45-117); Anion Gap 5 (5-15); BUN 23 mg/dL (7-18); BUN/Creat Ratio 17.7 RATIO (10-20); Calcium,Total 9.3 mg/dL (8.5-10.1); Chloride 103 mmol/L (98-107); EST Glomerular Filtration Rate 46 mL/min (>60); Est Glom Filt Rate - Afr Amer 55 mL/min (>60); Globulin 3.4 g/dL (2.2-4.2); Glucose 87 mg/dL (74-106); Potassium 4.2 mmol/L (3.5-5.1); Protein, Total 7.4 g/dL (6.4-8.2); Sodium Level 137 mmol/L (136-145)
[2023-04-22 19:26] LABS: White Blood Cells 0-5 SEEN /hpf (0-5)
== END | disposition home or self-care (01) ==
LOC: LAB 17:18
PROVIDERS: PCP Internal Medicine; Referring Provider Internal Medicine Rheumatology; Visit Provider Internal Medicine Rheumatology
DX: M06.00 Rheumatoid arthritis without rheumatoid factor, unspecified site (principal); Z79.899 Other long term (current) drug therapy; M79.7 Fibromyalgia
CPT/HCPCS: 36415; 80053; 81001; 82570; 84156; 85025

== ENCOUNTER 2023-05-08 17:31 | Observation (INO) | payer BC, SELFPAY ==
[2023-05-08] VITALS (7 sets, daily range): BP systolic 121–141; BP diastolic 75–97; PULSE 60–78; RESP 10–17; TEMP 36.3–37.1; O2SAT 95–99; BMI 30.4
--- NOTE | 2023-05-08 17:43 | EDS_ITS ---
HPI History of Present Illness Chief Complaint: Chest Pain PFSH PFS Home Medications Omeprazole [Prilosec] 40 mg PO DAILY 02/22/16 [History Last Taken Unknown] doxepin 25 mg capsule 25 mg PO QHS 02/22/16 [History Last Taken Unknown] fluticasone 100 mcg-salmeterol 50 mcg/dose blistr powdr for inhalation (Advair Diskus) 1 puff inhalation DAILY 02/22/16 [History Last Taken Unknown] furosemide 20 mg tablet 10 mg PO MOWEFR 02/22/16 [History Last Taken Unknown] gabapentin 300 mg capsule 600 mg PO QHS 02/22/16 [History Last Taken Unknown] hydroxychloroquine 200 mg tablet 300 mg PO DAILY 02/22/16 [History Last Taken Unknown] levothyroxine 50 mcg tablet 50 mcg PO SUMOTUWETHFR 02/22/16 [History Last Taken Unknown] loratadine 10 mg tablet (Allergy Relief (loratadine)) 10 mg PO QHS 02/22/16 [History Last Taken Unknown] methylphenidate HCl 10 mg tablet (Ritalin) 10 mg PO BID 02/22/16 [History Last Taken Unknown] multivitamin (Daily Multiple tablet) 1 ea PO DAILY 02/22/16 [History Last Taken Unknown] abatacept 125 mg/mL subcutaneous syringe (Orencia) 125 mg subcut MO 10/12/21 [History Last Taken Unknown] cholecalciferol (vitamin D3) 25 mcg (1,000 unit) capsule (Vitamin D3) 25 mcg PO DAILY 10/12/21 [History Last Taken Unknown] fluoxetine 20 mg capsule (Prozac) 60 mg PO QHS 10/12/21 [History Last Taken Unknown] fremanezumab-vfrm 225 mg/1.5 mL subcutaneous auto-injector (Ajovy) 225 mg subcut QMONTH 10/12/21 [History Last Taken Unknown] gabapentin 300 mg capsule 300 mg PO DAILY 10/12/21 [History Last Taken Unknown] levothyroxine 50 mcg tablet 100 mcg PO SA 10/12/21 [History Last Taken Unknown] lisinopril 20 mg tablet 20 mg PO DAILY 10/12/21 [History Last Taken Unknown] potassium chloride 20 mEq tablet,extended release(part/cryst) (Klor-Con M) 20 meq PO MOWEFR 10/12/21 [History Last Taken Unknown] rizatriptan 5 mg tablet 5 mg PO Q2H PRN Migraine Headache 10/12/21 [History Last Taken Unknown] tramadol 50 mg tablet 50 mg PO BID PRN Pain 10/12/21 [History Last Taken Unknown] montelukast 10 mg tablet 10 mg PO DAILY 05/08/23 [History Last Taken Unknown] prednisone 5 mg tablet 5 mg PO DAILY 05/08/23 [History Last Taken Unknown] ropinirole 0.5 mg tablet 0.5 mg PO QHS 05/08/23 [History Last Taken Unknown] solifenacin 5 mg tablet 5 mg PO DAILY 05/08/23 [History Last Taken Unknown] trazodone 50 mg tablet 50 mg PO QHS 05/08/23 [History Last Taken Unknown] Allergy/AdvReac Type Severity Reaction Status Date / Time hydromorphone HCl AdvReac Itching Verified 10/10/21 16:55 [From Dilaudid] Family History (Updated 05/08/23 @ 23:[address] Rios Howard MD) Other Heart disease Hypertension Myocardial infarction Surgical History (Updated 05/08/23 @ 23:[address] Rios Howard MD) H/O section History of spinal fusion Hx of laminectomy Social History Smoking Status: Never smoker EXAM Physical Exam Const Vital Signs: 05/08/23 17:33 05/08/23 18:27 05/08/23 18:28 Temperature 98.7 F Temperature Source Oral Pulse Rate 78 67 Respiratory Rate 12 Blood Pressure 141/86 H 139/85 H Blood Pressure Mean 104 Pulse Ox 95 Oxygen Delivery Method Room Air Room Air 05/08/23 18:44 05/08/23 19:20 05/08/23 20:13 Temperature Temperature Source Pulse Rate 64 64 62 Respiratory Rate 16 10 L Blood Pressure 135/85 H 121/79 H 127/75 H Blood Pressure Mean 93 92 Pulse Ox 96 97 Oxygen Delivery Method Room Air Room Air Heart Score History: Highly Suspicious ECG: Normal Age: >45 - <65 years Risk Factors: >/= 3 Risk Factors or History of CAD Score: 5 MDM MDM MDM Narrative Medical decision making narrative: HISTORY OF PRESENT ILLNESS: 52-year-old female here with chest pain. States it started if she has back pain and then became more chest pain today she does not radiate to the jaw. She further states she started experiencing pain at approximately 10 AM. The pain is initially in her back. She also notes a few moments later the pain migrated to her chest she also notes pain radiates to her neck. Denies any focal weakness. Denies any pain now. States she got 4 baby aspirin by EMS. Denies any bleeding diathesis. Denies any vomiting. Denies any excessive diarrhea. She denies any cough. Denies any leg swelling. Notes family history of heart issues at 50. She is not a smoker. Patient denies sudden onset of pain, no tearing sensation, no migratory symptoms, no new numbness, weakness or loss of sensation. Patient denies family history or personal history of Marfan syndrome or Dacia-Danlos Patient the patient denies recent surgery in the last 4 weeks or immobilization in the last 3 days, denies previous diagnosis of DVT or PE, hemoptysis, unilateral leg swelling or malignancy with treatment the last 6 months. No estrogen use noted. REVIEW OF SYSTEMS: Pertinent positives: Chest pain Pertinent negatives: Syncope, focal weakness, vomiting PHYSICAL EXAM: Nursing triage notes reviewed, Vital signs reviewed Constitutional: please see mdm HENT: MMM Eyes: Pupils equal round and reactive to light, Extraocular muscles intact Neck: No stridor, no JVD, full neck ROM Lungs: Clear to auscultation, No wheezing or rales. No increased work of breathing, no conversational dyspnea, no accessory muscle use, no nasal flaring. No respiratory distress noted Heart: Regular rate and rhythm, No murmurs, No rubs and No gallops, 2+ distal pulses (radial, femoral, posterior tibial) in all extremities Abdomen: Soft, there is no tenderness, rigidity, rebound or guarding, no obvious peritoneal signs, no palpable pulsatile abdominal masses, no auscultated abdominal bruit : No CVAT Extremities: No edema Neuro: No focal neurological deficits, cranial nerves II through XII intact, 5/5 strength in all extremities. Intact sensation to light touch in all extremities, 2+ reflexes bilateral patella tendons. Normal gait. No ataxia. Skin: No rash or lesions noted MEDICAL DECISION MAKING: Chief Complaint: Chest pain External records reviewed: No recent cardiac catheterizations, stress test or echocardiograms noted in the chart Factors affecting care: none hypertension, hypothyroidism Social determinants of health: never smoker History obtained from others: the patient's Consults: Internal medicine (Dr. Howard) ALL IMAGES (IF OBTAINED) HAVE BEEN PERSONALLY REVIEWED AND INTERPRETED BY MYSELF. MDM Narrative: Patient was hemodynamically stable, afebrile, nontoxic-appearing. Exam without focal cardiopulmonary abnormalities, no murmurs, no pulse deficits, no focal weakness or loss of sensation. I considered the following differential diagnosis: PE, aortic dissection, ACS, arrhythmia, anemia, electrolyte maladies, heart failure, pneumothorax, pneumonia I obtained a broad lab and imaging work-up to further elucidate the etiology the patient complaints. Labs images were remarkable no evidence of significant anemia, D-dimer was negative ruling out VTE and lowering suspicion for dissection, PE. There is no significant electrolyte abnormalities, no s ignificant elevations in her troponin values x2. EKG was nonischemic. BNP without significant elevated. I calculated heart score for the patient which was 5 (high risk). I will recommend admission for serial biomarkers and confirmatory testing. Discussed with hospitalist who accepted the patient's case. The patient and/or family, caregivers express understanding. The patient and/or family, caregivers agrees with the plan. Total critical care time today provided was at least 0 minutes. This excludes separately billable procedures. Critical care time (if documented) is secondary to the patient having high probability of clinically significant/life threatening deterioration in the patient's condition which required my urgent intervention. Shared decision making: I will have a discussion with the patient and or visitors regarding risk/benefits of further testing or admission. They will be made aware of of the risk/benefits inherent in this decision they will be given the opportunity to voice understanding. Lab Data Attestation: I reviewed the patient's lab results. Lab results narrative: EKG with normal sinus rhythm, normal axis, normal intervals, no STEMI D-dimer negative making VTE and dissection less likely BMP without significant [place] normalities, there is mild renal insufficiency is consistent with baseline, no anion gap to suggest endorgan hypoperfusion Troponin is negative, no evidence of myocardial ischemia x2 BNP within normal limits making heart strain, CHF and volume overload less like Labs: Laboratory Results - last 24 hr 05/08/23 05/08/23 05/08/23 17:55 17:55 17:55 WBC 8.2 RBC 4.26 Hgb 13.3 Hct 39.7 MCV 93.2 MCH 31.2 MCHC 33.5 RDW Std Deviation 44.1 H RDW Coeff of [place] 13.0 Plt Count 307 MPV 10.2 Immature Gran % (Auto) 0.500 Neut % (Auto) 76.7 H Lymph % (Auto) 13.6 L [place] % (Auto) 8.6 Eos % (Auto) 0.2 Baso % (Auto) 0.4 Absolute Neuts (auto) 6.3 Absolute Lymphs (auto) 1.11 Nucleated RBC % 0 D-Dimer Quant (PE/DVT) < 0.27 L Sodium 140 Potassium 3.7 Chloride 103 Carbon Dioxide 29.0 Anion Gap 8 BUN 17 Creatinine 1.37 H Estim Creat Clear Calc 41.48 Est GFR (MDRD) Af Amer 52 L Est GFR (MDRD) Non-Af 43 L BUN/Creatinine Ratio 12.4 Glucose 89 Calcium 9.6 Troponin I High Sens 5 B-Natriuretic Peptide 05/08/23 05/08/23 17:55 20:25 WBC RBC Hgb Hct MCV MCH MCHC RDW Std Deviation RDW Coeff of [place] Plt Count MPV Immature Gran % (Auto) Neut % (Auto) Lymph % (Auto) [place] % (Auto) Eos % (Auto) Baso % (Auto) Absolute Neuts (auto) Absolute Lymphs (auto) Nucleated RBC % D-Dimer Quant (PE/DVT) Sodium Potassium Chloride Carbon Dioxide Anion Gap BUN Creatinine Estim Creat Clear Calc Est GFR (MDRD) Af Amer Est GFR (MDRD) Non-Af BUN/Creatinine Ratio Glucose Calcium Troponin I High Sens 6 B-Natriuretic Peptide 63.3 Radiography Diagnostic Testing: Clinical Impression(s) from Imaging Studies Chest X-Ray 05/08/23 18:30 IMPRESSION: No radiographic evidence of acute cardiopulmonary disease. Electronically Signed: Carlos Fernandes MD at 18:44 EDT , I have personally reviewed the patient's chest x-ray. Chest x-ray is unremarkable for pulmonary edema, pneumothorax, pneumonia or focal cardiopulmonary abnormality. Discharge Plan Dx/Rx/DC Orders Clinical Impression: Chest pain, History of essential hypertension, History of hyperlipidemia Disposition Disposition: Acute Care Hospital [facility]
[2023-05-08] MEDS: Nitroglycerin SL (ED/IMG/CATH) 0.4 MG TABLET SL ×2 (18:27→18:44)
--- NOTE | 2023-05-08 18:30 | RAD_ITS ---
EXAM: XR CHEST, 1 VIEW CLINICAL INDICATION: chest pain TECHNIQUE: Frontal view of the chest. COMPARISON: No relevant prior studies available. FINDINGS: LUNGS AND PLEURAL SPACES: Unremarkable. No consolidation or edema. No pneumothorax. No effusion. HEART: Unremarkable. Cardiac silhouette not enlarged. MEDIASTINUM: Central airways and mediastinal contour are unremarkable. BONES/JOINTS: Unremarkable. SOFT TISSUES: Unremarkable. RAD/Chest 1 View (Portable) IMPRESSION: No radiographic evidence of acute cardiopulmonary disease. Electronically Signed: Carlos Fernandes MD at 18:44 EDT ,
[2023-05-08 18:31] LABS: Absolute Lymphocyte Count 1.11 X10^3/uL (0.83-4.51); Absolute Neutrophil Count 6.3 X10^3/uL (2.0-7.7); Basophil# 0.03 X10^3/uL; Basophil% 0.4 % (0-1); Eosinophil# 0.02 X10^3/uL; Eosinophils% 0.2 % (0-5); Hematocrit 39.7 % (37-47); Hemoglobin 13.3 g/dL (12.0-15.0); Lymphocyte # 1.11 X10^3/ul (0.83-4.51); Lymphocyte % 13.6 % (19-41); Mean Corp Hgb Conc 33.5 g/dL (32-36); Mean Corpuscular Hgb 31.2 pg (27.0-32.0); Mean Corpuscular Volume 93.2 fL (81-99); Mean Platelet Vol. 10.2 fl (6.2-12.0); Monocyte% 8.6 % (0-10); NRBC Flagged by Analyzer 0 % (0-5); Neutrophil # 6.26 X10^3/uL (2.7-7.7); Neutrophil % 76.7 % (47-70); Platelet Count 307 K/mm3 (150-450); RBC Distribution Width SD 44.1 fl (35.1-43.9); Red Blood Count 4.26 M/mm3 (4.2-5.4); White Blood Count 8.2 K/mm3 (4.4-11.0)
[2023-05-08 18:49] LABS: BNP,B-Type NATRIURETIC PEPTIDE 63.3 pg/mL (0-100)
[2023-05-08 18:52] LABS: D-Dimer Quantitative (DVT/PE) < 0.27 FEU/ug/m (0.27-0.49)
[2023-05-08 18:53] LABS: Anion Gap 8 (5-15); BUN 17 mg/dL (7-18); BUN/Creat Ratio 12.4 RATIO (10-20); Calcium,Total 9.6 mg/dL (8.5-10.1); Chloride 103 mmol/L (98-107); Creatinine, Serum 1.37 mg/dL (0.55-1.02); EST Glomerular Filtration Rate 43 mL/min (>60); Est Glom Filt Rate - Afr Amer 52 mL/min (>60); Estimated Creatinine Clearance 41.48 ml/min; Glucose 89 mg/dL (74-106); Potassium 3.7 mmol/L (3.5-5.1); Sodium Level 140 mmol/L (136-145); Troponin-I HS (w/2H Reflex) 5 pg/mL (3.0-54.0)
[2023-05-08 20:25] LABS: Reflex Troponin-HS? (from REC) Y
[2023-05-08 20:45] LABS: Troponin-I HS 6 pg/mL (3.0-54.0)
--- NOTE | 2023-05-08 23:14 | HP.PCM.HOS_ITS ---
HPI - General General Date of Admission: 05/08/23 Date of Service: 05/08/23 Chief Complaint: Chest pain HPI Narrative KRISTIN FUENTES, is a 52 F with a significant history of mitochondrial disease; hypertension; hyperlipidemia; and hypothyroidism who presents emergency department with excruciating substernal chest pain. Her symptoms started several hours before presentation. Has symptoms for started with pain in between his shoulder blade. The pain later progressed to substernal chest and to his head and left neck. She called the paramedics and was brought to emergency department. At the emergency department patient received nitroglycerin which helped with the pain. At the emergency department patient walked short distance to the bathroom and had pain came back on. She reports a constant back pain and intermittent chest pain. She described the pain as sharp dull and aching. Associated with her symptom is nausea and shortness of breath. She denies any vomiting or diaphoresis. [facility] Medical History (Updated 05/09/23 @ 01:57 by Taya Stewart) Hyperlipidemia Hypertension Hypothyroid Migraine Mitochondrial disease Home Medications Omeprazole [Prilosec] 40 mg PO DAILY 02/22/16 [History Last Taken Unknown] doxepin 25 mg capsule 25 mg PO QHS 02/22/16 [History Last Taken Unknown] fluticasone 100 mcg-salmeterol 50 mcg/dose blistr powdr for inhalation (Advair Diskus) 1 puff inhalation DAILY 02/22/16 [History Last Taken Unknown] furosemide 20 mg tablet 10 mg PO MOWEFR 02/22/16 [History Last Taken Unknown] gabapentin 300 mg capsule 600 mg PO QHS 02/22/16 [History Last Taken Unknown] hydroxychloroquine 200 mg tablet 300 mg PO DAILY 02/22/16 [History Last Taken Unknown] levothyroxine 50 mcg tablet 50 mcg PO SUMOTUWETHFR 02/22/16 [History Last Taken Unknown] loratadine 10 mg tablet (Allergy Relief (loratadine)) 10 mg PO QHS 02/22/16 [History Last Taken Unknown] methylphenidate HCl 10 mg tablet (Ritalin) 10 mg PO BID 02/22/16 [History Last Taken Unknown] multivitamin (Daily Multiple tablet) 1 ea PO DAILY 02/22/16 [History Last Taken Unknown] abatacept 125 mg/mL subcutaneous syringe (Orencia) 125 mg subcut MO 10/12/21 [History Last Taken Unknown] cholecalciferol (vitamin D3) 25 mcg (1,000 unit) capsule (Vitamin D3) 25 mcg PO DAILY 10/12/21 [History Last Taken Unknown] fluoxetine 20 mg capsule (Prozac) 60 mg PO QHS 10/12/21 [History Last Taken Unknown] fremanezumab-vfrm 225 mg/1.5 mL subcutaneous auto-injector (Ajovy) 225 mg subcut QMONTH 10/12/21 [History Last Taken Unknown] gabapentin 300 mg capsule 300 mg PO DAILY 10/12/21 [History Last Taken Unknown] levothyroxine 50 mcg tablet 100 mcg PO SA 10/12/21 [History Last Taken Unknown] lisinopril 20 mg tablet 20 mg PO DAILY 10/12/21 [History Last Taken Unknown] potassium chloride 20 mEq tablet,extended release(part/cryst) (Klor-Con M) 20 meq PO MOWEFR 10/12/21 [History Last Taken Unknown] rizatriptan 5 mg tablet 5 mg PO Q2H PRN Migraine Headache 10/12/21 [History Last Taken Unknown] tramadol 50 mg tablet 50 mg PO BID PRN Pain 10/12/21 [History Last Taken Unknown] montelukast 10 mg tablet 10 mg PO DAILY 05/08/23 [History Last Taken Unknown] prednisone 5 mg tablet 5 mg PO DAILY 05/08/23 [History Last Taken Unknown] ropinirole 0.5 mg tablet 0.5 mg PO QHS 05/08/23 [History Last Taken Unknown] solifenacin 5 mg tablet 5 mg PO DAILY 05/08/23 [History Last Taken Unknown] trazodone 50 mg tablet 50 mg PO QHS 05/08/23 [History Last Taken Unknown] Allergy/AdvReac Type Severity Reaction Status Date / Time hydromorphone HCl AdvReac Itching Verified 10/10/21 16:55 [From Dilaudid] Family History (Updated 05/08/23 @ 23:[address] Rios Howard MD) Other Heart disease Hypertension Myocardial infarction Surgical History (Updated 05/08/23 @ 23:[address] Rios Howard MD) H/O section History of spinal fusion Hx of laminectomy Social History Smoking Status: Never smoker Vital Signs Vital Signs Vital Signs: 05/08/23 17:33 05/08/23 18:27 05/08/23 18:28 Temperature 98.7 F Temperature Source Oral Pulse Rate 78 67 Respiratory Rate 12 Blood Pressure 141/86 H 139/85 H Blood Pressure Mean 104 Pulse Ox 95 Oxygen Delivery Method Room Air Room Air 05/08/23 18:44 05/08/23 19:20 05/08/23 20:13 Temperature Temperature Source Pulse Rate 64 64 62 Respiratory Rate 16 10 L Blood Pressure 135/85 H 121/79 H 127/75 H Blood Pressure Mean 93 92 Pulse Ox 96 97 Oxygen Delivery Method Room Air Room Air 05/08/23 22:38 05/08/23 23:00 Temperature 97.4 F L Temperature Source Temporal Pulse Rate 60 62 Respiratory Rate 16 17 Blood Pressure 123/97 H 133/84 H Blood Pressure Mean 105 100 Pulse Ox 99 99 Oxygen Delivery Method Room Air Room Air Weight Weight: 80.286 kg Body Mass Index (BMI) 30.4 Physical Exam Narrative Physical exam: General: Well-nourished, well-developed. Head: Normocephalic, atraumatic, no tenderness Eyes: Vision is grossly intact. EOMI ENT, no trauma, moist mucous membranes, no rhinorrhea Neck: Nontender, No thyromegaly. CVS: Regular rate and rhythm. S1-S2 present. No murmur, gallop or rub. Respiratory : clear to auscultation bilaterally, chest wall nontender Abdomen: Soft, nontender, nondistended, normal bowel sounds, no masses : Deferred Back: Nontender, no CVA tenderness, no midline spinal tenderness, deformities, step-offs Extremities: Nontender full range of motion, no trauma Skin: Normal color, no trauma, abrasions Neuro: Alert, oriented, cranial nerves II through XII grossly intact. Psychiatry: Normal mood. Normal affect. Not depressed. Not anxious. Results Lab / Micro Data Result Diagrams: 05/08/23 17:55 05/08/23 17:55 Labs: Laboratory Results - last 24 hr 05/08/23 17:55: WBC 8.2, RBC 4.26, Hgb 13.3, Hct 39.7, MCV 93.2, MCH 31.2, MCHC 33.5, RDW Std Deviation 44.1 H, RDW Coeff of Stuart 13.0, Plt Count 307, MPV 10.2, Immature Gran % (Auto) 0.500, Neut % (Auto) 76.7 H, Lymph % (Auto) 13.6 L, [place] % (Auto) 8.6, Eos % (Auto) 0.2, Baso % (Auto) 0.4, Absolute Neuts (auto) 6.3, Absolute Lymphs (auto) 1.11, Nucleated RBC % 0 05/08/23 17:55: D-Dimer Quant (PE/DVT) < 0.27 L 05/08/23 17:55: Sodium 140, Potassium 3.7, Chloride 103, Carbon Dioxide 29.0, Anion Gap 8, BUN 17, Creatinine 1.37 H, Estim Creat Clear Calc 41.48, Est GFR (MDRD) Af Amer 52 L, Est GFR (MDRD) Non-Af 43 L, BUN/Creatinine Ratio 12.4, Glucose 89, Calcium 9.6, Troponin I High Sens 5 05/08/23 17:55: B-Natriuretic Peptide 63.3 05/08/23 20:25: Troponin I High Sens 6 Radiology Impression Chest X-Ray 05/08/23 18:30 IMPRESSION: No radiographic evidence of acute cardiopulmonary disease. Electronically Signed: Carlos Fernandes MD at 18:44 EDT , Assessment & Plan Assessment/Plan (1) Chest pain: (2) History of essential hypertension: (3) History of hyperlipidemia: PLAN: Plan Chest pain Place on a monitored bed at PCU Radiologist impression of chest x-ray: No acute cardiopulmonary process. Actual CXR image was independently visualized. No acute cardiopulmonary process was noted. Actual EKG tracing was independently visualized. EKG tracing showed sinus rhythm with no T wave or ST abnormalities. ASA 81 mg p.o. daily ordered SL NTG 0.4 mg prn as needed for chest pain ordered Morphine as needed for pain ordered We will check lipid panel. High-sensitivity troponin x2 were negative. Serial cardiac enzymes ordered Stat EKG as needed for chest pain Treadmill stress test in the AM if the cardiac enzymes are negative Hypertension Blood pressure is not within goal Home blood pressure medication. Trend blood pressure and adjust blood pressure medications. DVT prophylaxis SCDs ordered Charges/Coding Visit Charges Inpatient E&M: 03879 Init Hosp L2
--- NOTE | 2023-05-09 01:16 | ECHOD_ITS ---
Reason For Study: CHEST PAIN Procedure This was a 2D Doppler, Color Flow transthoracic echocardiogram. Exam performed portable in patient room. Left Ventricle Normal size and thickness. The left ventricular ejection fraction is 60 %. Normal diastololic function. Right Ventricle Normal right ventricle. Atria The left and right atria are normal. Mitral Valve Trivial mitral valve insufficiency. Tricuspid Valve Trivial tricuspid valve insufficiency. Unable to estimate RV systolic pressure due to insufficient tricuspid regurgitant envelope. Aortic Valve Normal aortic valve. Pulmonic Valve The pulmonic valve is not well visualized. Great Vessels Normal sized aortic root. Pericardium/Pleural No pericardial effusion. MMode/2D Measurements & Calculations LVIDd: 4.3 cm IVSd: 1.1 cm Ao root diam: 3.2 cm LVIDs: 3.0 cm LVPWd: 1.1 cm FS: 30.1 % LAV(MOD-bp): 45.1 ml LVAd ap4: 26.1 cm2 SV(MOD-sp4): 38.8 ml LAV(MOD-bp) Indexed: 24.7 ml/m2 LVLd ap4: 8.2 cm LAV(MOD-sp2): 47.8 ml EDV(MOD-sp4): 71.2 ml LAV(MOD-sp4): 37.8 ml EDV(sp4-el): 70.9 ml LVAs ap4: 15.1 cm2 LVLs ap4: 6.4 cm ESV(MOD-sp4): 32.5 ml ESV(sp4-el): 30.2 ml EF(MOD-sp4): 54.4 % EF(sp4-el): 57.3 % SV(sp4-el): 40.7 ml LA A4 area: 15.8 cm2 LA dimension(2D): 3.5 cm RA A4 area: 12.0 cm2 Time Measurements MV dec time: 0.22 sec Doppler Measurements & Calculations MV E max juan: 78.4 cm/sec Lat Peak E' Juan: 13.7 cm/sec Med Peak E' Juan: 10.8 cm/sec MV A max juan: 66.7 cm/sec E/E' lat: 5.7 E/E' med: 7.2 MV E/A: 1.2 MV V2 max: 75.7 cm/sec Ao V2 max: 152.7 cm/sec MV max P.3 mmHg MV dec slope: 365.4 cm/sec2 Ao max P.3 mmHg MV V2 mean: 51.5 cm/sec Ao V2 mean: 101.5 cm/sec MV mean P.2 mmHg Ao mean P.8 mmHg MV V2 VTI: 29.1 cm Ao V2 VTI: 32.0 cm AV (velocity ratio): 0.88 LV V1 max: 129.0 cm/sec MR max juan: 424.4 cm/sec PA V2 max: 102.4 cm/sec LV V1 max P.7 mmHg MR max P.1 mmHg PA V2 mean: 73.1 cm/sec LV V1 mean P.7 mmHg LV V1 mean: 90.5 cm/sec LV V1 VTI: 28.0 cm ECHO/Echo Complete Interpretation Summary The left ventricular ejection fraction is 60 %. Ordering Physician: Rios Howard Referring Physician: Rosalinda Garrett M.D. Performed By: Jacquelin Lozoya RCS
--- NOTE | 2023-05-09 01:16 | EX.EMERGENCY ---
EMERGENCY DOCUMENTATION INITIATED: Date: 02/26/2023 Time: 1900 O
[2023-05-09 01:17] VITALS: BP 138/77; PULSE 62; RESP 16; TEMP 36.9; O2SAT 95; BMI 29.2
[2023-05-09 01:20] VITALS: PULSE 62; RESP 16
[2023-05-09 05:36] LABS: Absolute Neutrophil Count 3.3 X10^3/uL (2.0-7.7); Basophil# 0.02 X10^3/uL; Basophil% 0.4 % (0-1); Eosinophil# 0.03 X10^3/uL; Eosinophils% 0.5 % (0-5); Hematocrit 39.9 % (37-47); Hemoglobin 13.2 g/dL (12.0-15.0); Lymphocyte % 30.2 % (19-41); Mean Corp Hgb Conc 33.1 g/dL (32-36); Mean Corpuscular Hgb 31.1 pg (27.0-32.0); Mean Corpuscular Volume 93.9 fL (81-99); Mean Platelet Vol. 9.6 fl (6.2-12.0); Monocyte# 0.53 X10^3/uL; Monocyte% 9.4 % (0-10); NRBC Flagged by Analyzer 0 % (0-5); Neutrophil # 3.31 X10^3/uL (2.7-7.7); Neutrophil % 58.8 % (47-70); Platelet Count 257 K/mm3 (150-450); RBC Distribution Width CV 13.1 % (11.6-14.6); RBC Distribution Width SD 44.7 fl (35.1-43.9); Red Blood Count 4.25 M/mm3 (4.2-5.4); White Blood Count 5.6 K/mm3 (4.4-11.0)
[2023-05-09 06:14] LABS: Anion Gap 3 (5-15); BUN 15 mg/dL (7-18); BUN/Creat Ratio 12.3 RATIO (10-20); Calcium,Total 8.6 mg/dL (8.5-10.1); Chloride 109 mmol/L (98-107); Cholesterol 251 mg/dL (200); Creatinine, Serum 1.22 mg/dL (0.55-1.02); EST Glomerular Filtration Rate 49 mL/min (>60); Est Glom Filt Rate - Afr Amer 59 mL/min (>60); Estimated Creatinine Clearance 46.58 ml/min; Glucose 90 mg/dL (74-106); High Density Lipoprotein 81 mg/dL; Potassium 4.1 mmol/L (3.5-5.1); Sodium Level 142 mmol/L (136-145); Triglycerides 95 mg/dL; Very Low Density Lipoprotein 19 mg/dL (5-40)
[2023-05-09] MEDS: Aspirin E.C. 81 MG Tablet PO (06:17)
[2023-05-09] MEDS: Levothyroxine 50 MCG Tablet PO (06:18)
[2023-05-09 06:26] VITALS: BP 127/56; PULSE 66; RESP 16; TEMP 36.6; O2SAT 97
[2023-05-09 06:55] VITALS: PULSE 64; RESP 16; O2SAT 98
[2023-05-09] MEDS: Albuterol 2.5 MG/3 ML VIAL.NEB. INHALATION ×2 (06:55→12:52)
[2023-05-09] MEDS: Budesonide Respules 0.5 MG/2 ML AMPUL.NEB. INHALATION (06:55)
[2023-05-09 07:20] LABS: Troponin-I HS 7 pg/mL (3.0-54.0)
[2023-05-09 11:26] VITALS: BP 116/77; PULSE 71; RESP 14; TEMP 37.4; O2SAT 98
[2023-05-09] MEDS: Acetaminophen 325 MG Tablet 650 MG PO (11:49)
--- NOTE | 2023-05-09 12:20 | STRESSREP_ITS ---
Stress Test Report Date: 05/09/2023 Procedure: Exercise tolerance test/imaging study Indications: Chest pain Consent: Per the patient Procedure: The patient exercised on a Toro protocol for 6 minutes and 59 achieving a peak heart rate of 162 bpm (96% predicted maximal heart rate) with a peak blood pressure 164/70 mmHg and a peak MET capacity of 9.9 METs. The baseline ECG demonstrated normal sinus rhythm. The peak exercise ECG demonstrated no ischemic changes. There were no cardiac dysrhythmias pretest, during exercise, or recovery. The functional capacity was considered average. There was no complaint of chest discomfort during exercise or recovery. The examination was discontinued secondary to target heart rate being achieved. The patient was injected with 12.0 mCi of technetium 99m Cardiolite and subsequently rest SPECT Cardiolite nuclear imaging was obtained in the horizontal long, vertical long, and short axis views. Post-exercise, the patient was injected with 36.0 mCi of technetium 99m Cardiolite and subsequently stress SPECT Cardiolite nuclear imaging was obtained in the horizontal long, vertical long, and short axis views. A gated Cardiolite study at peak stress was obtained. Rest and stress SPECT Cardiolite nuclear imaging status post realignment, normalization, and attenuation correction, demonstrates the appearance of relative uniform tracer uptake and myocardial perfusion appearing within normal limits. There is end systolic thickening and brightening. The gated Cardiolite study demonstrates myocardial thickening and inward wall motion. The reported LVEF is 52%. Impression: 1. Technically adequate (percent predicted maximal heart rate greater than 85%) exercise tolerance test 2. Peak exercise ECG no ischemic changes 3. There were no cardiac dysrhythmias pretest, during exercise, or recovery 4. Rest and stress SPECT Cardiolite nuclear imaging demonstrate no fixed or reversible perfusion defects. 5. The gated Cardiolite study reports an LVEF of 52%. This note was generated with [employer]ation software. It may contain incorrect words, spelling, and punctuation that were not noted in checking the note before signing.
[2023-05-09 12:52] VITALS: PULSE 64; RESP 16
--- NOTE | 2023-05-09 15:06 | PCM.DC.SUM ---
Providers Date of Admission: 05/08/23 Date of Discharge: 05/09/23 Primary Care Physician: Dr. Rosalinda Garrett DO Reason For Visit: Chest pain Diagnosis Discharge Diagnosis (1) Chest pain: Status: Acute Code(s): R07.9 - Chest pain, unspecified (2) History of essential hypertension: Status: Acute Code(s): Z86.79 - Personal history of other diseases of the circulatory system (3) History of hyperlipidemia: Status: Acute Code(s): Z86.39 - Personal history of other endocrine, nutritional and metabolic disease Medications at Discharge Home Medications Omeprazole [Prilosec] 40 mg PO DAILY reflux 02/22/16 doxepin 25 mg capsule 25 mg PO QHS mental health 02/22/16 fluticasone 100 mcg-salmeterol 50 mcg/dose blistr powdr for inhalation (Advair Diskus) 1 puff inhalation DAILY BREATHING 02/22/16 furosemide 20 mg tablet 10 mg PO MOWEFR DIURETIC 02/22/16 gabapentin 300 mg capsule 600 mg PO QHS NERVE PAIN 02/22/16 hydroxychloroquine 200 mg tablet 300 mg PO DAILY arthritis 02/22/16 levothyroxine 50 mcg tablet 50 mcg PO SUMOTUWETHFR THYROID 02/22/16 loratadine 10 mg tablet (Allergy Relief (loratadine)) 10 mg PO QHS ALLERGIES 02/22/16 methylphenidate HCl 10 mg tablet (Ritalin) 10 mg PO BID ADD 02/22/16 multivitamin (Daily Multiple tablet) 1 ea PO DAILY vitamin 02/22/16 abatacept 125 mg/mL subcutaneous syringe (Orencia) 125 mg subcut MO arthritis 10/12/21 cholecalciferol (vitamin D3) 25 mcg (1,000 unit) capsule (Vitamin D3) 25 mcg PO DAILY VITAMIN 10/12/21 fluoxetine 20 mg capsule (Prozac) 60 mg PO QHS DEPRESSION 10/12/21 fremanezumab-vfrm 225 mg/1.5 mL subcutaneous auto-injector (Ajovy) 225 mg subcut QMONTH migraines 10/12/21 gabapentin 300 mg capsule 300 mg PO DAILY NERVE PAIN 10/12/21 levothyroxine 50 mcg tablet 100 mcg PO SA THYROID 10/12/21 lisinopril 20 mg tablet 20 mg PO DAILY BLOOD PRESSURE 10/12/21 potassium chloride 20 mEq tablet,extended release(part/cryst) (Klor-Con M) 20 meq PO MOWEFR supplement 10/12/21 rizatriptan 5 mg tablet 5 mg PO Q2H PRN Migraine Headache 10/12/21 tramadol 50 mg tablet 50 mg PO BID PRN Pain 10/12/21 montelukast 10 mg tablet 10 mg PO DAILY allergies 05/08/23 prednisone 5 mg tablet 5 mg PO DAILY inflammation 05/08/23 ropinirole 0.5 mg tablet 0.5 mg PO QHS restless legs 05/08/23 solifenacin 5 mg tablet 5 mg PO DAILY 05/08/23 trazodone 50 mg tablet 50 mg PO QHS sleep 05/08/23 Hospital Course Operations None Procedures 2-D Echocardiogram, EKG, Nuclear stress test and - (Chest x-ray) Summary of Care Provided Minutes Spent on Discharge: 25 Hospital Course: Ms. Faust is a 52-year-old white female who presents emergency department on 05/08/2023 complaining of chest pain that was substernal. She reported was excruciating and started several hours prior to presentation. Initial pain was between her shoulder blades. She reported it had radiated to her head and her left neck and she therefore called the paramedics to be brought to the emergency department. She received nitroglycerin in the emergency department which helped with her pain. Upon walking short distances to the bathroom her pain had returned. She had no associated diaphoresis or vomiting but did complain of some mild nausea and shortness of breath. Vital signs on presentation showed a temperature of 98.7, heart rate was 78, blood pressure 141/86, oxygen saturation was 95% on room ai her CBC was unremarkable. Her D-dimer was less than 0.27. Her chemistry panel showed normal electrolytes with mildly elevated renal function which is consistent with her baseline. Cardiac enzymes were cycled during her hospital stay and were not elevated. Her BNP was 63.3. Total cholesterol was found to be 251/LDL was 151/HDL was 81. An echocardiogram was performed and demonstrated an EF of 60% with no wall motion abnormalities. Her stress test demonstrated no fixed or reversible perfusion defects and a technically adequate exercise tolerance test. I would recommend she be evaluated further as an outpatient for potentially initiating a statin if her diet changes do not improve her cholesterol. She was able to be discharged home in stable condition on 05/06/20202022. We have asked her to follow-up with her primary care physician. I am questioning whether or not her pain is related to esophageal spasm since it did improve with nitroglycerin and no cardiac etiology was found. Discharge diagnoses: Chest pain-resolved Hyperlipidemia Hypertension Rheumatoid arthritis and asthma Did pression Neuropathy Hypothyroidism Seasonal allergies is GERD Restless leg syndrome Chronic pain Insomnia Physical Exam Const alert, oriented x3, no apparent distress and well nourished Constitutional Narrative: Overweight, white, middle-aged, female, very pleasant, appears comfortable and nontoxic, watching television and playing on her phone General Appearance: cooperative, comfortable, well kempt and well developed Orientation / Consciousness: awake, oriented to person, oriented to place and oriented to time Exam Limitations: no limitations Nutritional Appearance: overweight HEENT normocephalic, head/scalp atraumatic, hearing grossly normal bilaterally and moist oral mucous membranes HEENT Narrative: Mallampati 2, no thrush Resp normal respiratory effort, no retractions, no use of accessory muscles and clear to auscultation bilaterally Auscultation: Negative for rales, rhonchi or wheezes Cardio regular rate, regular rhythm, S1 normal heart sound, S2 normal heart sound, no murmurs and no rub GI normal to inspection, nondistended, normoactive bowel sounds, soft to palpation and non-tender Extremity no clubbing, cyanosis or edema Extremity Narrative: 2+ pedal pulses Neuro oriented x3, moves all extremities and no focal motor deficits Speech: speech normal Psych affect normal Psych Narrative: Very pleasant, appropriately interactive, eye contact is good Weight / BMI Weight Weight: 77.4 kg Body Mass Index (BMI) 29.2 ABG / Lab / Microbiology Data Result Diagrams: 05/09/23 05:23 05/09/23 05:23 Laboratory: Laboratory Results - last 24 hr 05/08/23 17:55: WBC 8.2, RBC 4.26, Hgb 13.3, Hct 39.7, MCV 93.2, MCH 31.2, MCHC 33.5, RDW Std Deviation 44.1 H, RDW Coeff of Stuart 13.0, Plt Count 307, MPV 10.2, Immature Gran % (Auto) 0.500, Neut % (Auto) 76.7 H, Lymph % (Auto) 13.6 L, [place] % (Auto) 8.6, Eos % (Auto) 0.2, Baso % (Auto) 0.4, Absolute Neuts (auto) 6.3, Absolute Lymphs (auto) 1.11, Nucleated RBC % 0 05/08/23 17:55: D-Dimer Quant (PE/DVT) < 0.27 L 05/08/23 17:55: Sodium 140, Potassium 3.7, Chloride 103, Carbon Dioxide 29.0, Anion Gap 8, BUN 17, Creatinine 1.37 H, Estim Creat Clear Calc 41.48, Est GFR (MDRD) Af Amer 52 L, Est GFR (MDRD) Non-Af 43 L, BUN/Creatinine Ratio 12.4, Glucose 89, Calcium 9.6, Troponin I High Sens 5 05/08/23 17:55: B-Natriuretic Peptide 63.3 05/08/23 20:25: Troponin I High Sens 6 05/09/23 05:23: Sodium 142, Potassium 4.1, Chloride 109 H, Carbon Dioxide 30.0, Anion Gap 3 L, BUN 15, Creatinine 1.22 H, Estim Creat Clear Calc 46.58, Est GFR (MDRD) Af Amer 59 L, Est GFR (MDRD) Non-Af 49 L, BUN/Creatinine Ratio 12.3, Glucose 90, Calcium 8.6, Triglycerides 95, Cholesterol 251 H, LDL Cholesterol 151 H, VLDL Cholesterol 19, HDL Cholesterol 81 05/09/23 05:23: WBC 5.6, RBC 4.25, Hgb 13.2, Hct 39.9, MCV 93.9, MCH 31.1, MCHC 33.1, RDW Std Deviation 44.7 H, RDW Coeff of Stuart 13.1, Plt Count 257, MPV 9.6, Immature Gran % (Auto) 0.700, Neut % (Auto) 58.8, Lymph % (Auto) 30.2, [place] % (Auto) 9.4, Eos % (Auto) 0.5, Baso % (Auto) 0.4, Absolute Neuts (auto) 3.3, Absolute Lymphs (auto) 1.70, Nucleated RBC % 0 05/09/23 05:23: Troponin I High Sens 7 Radiography Diagnostic Testing: Radiology Impression Chest X-Ray 05/08/23 18:30 IMPRESSION: No radiographic evidence of acute cardiopulmonary disease. Electronically Signed: Carlos Fernandes MD at 18:44 EDT , Echocardiogram 05/09/23 01:16 Interpretation Summary The left ventricular ejection fraction is 60 %. Ordering Physician: Rios Howard Referring Physician: Rosalinda Garrett M.D. Performed By: Jacquelin Lozoya RCS D/C Instructions Discharge Diet: Low fat / Low cholesterol Discharge Activity: Return to Normal Activity Meaningful Use Info Meaningful Use Diagnoses (Choose all that apply): None applicable Discharge Plan Admission Admit Date/Time: 05/08/23 22:35 Primary Reason for Your Visit: Chest pain Attending Provider: Mary Valentin Primary Care Provider: Rosalinda Garrett Consulting Providers: Rios Howard Discharge Orders/Prescriptions Prescriptions: Continued multivitamin [Daily Multiple] 1 EACH tablet 1 ea PO DAILY doxepin 25 MG capsule 25 mg PO QHS methylphenidate HCl [Ritalin] 10 MG tablet 10 mg PO BID levothyroxine 50 MCG tablet 50 mcg PO SUMOTUWETHFR gabapentin 300 MG capsule 600 mg PO QHS furosemide 20 MG tablet 10 mg PO MOWEFR hydroxychloroquine 200 MG tablet 300 mg PO DAILY fluticasone propion-salmeterol [Advair Diskus] 1 PUFF inhaler 1 puff inhalation DAILY loratadine [Allergy Relief (loratadine)] 10 MG tablet 10 mg PO QHS Omeprazole [Prilosec] 40 MG capsule 40 mg PO DAILY gabapentin 300 mg capsule 300 mg PO DAILY lisinopril 20 mg Tablet 20 mg PO DAILY tramadol 50 mg Tablet 50 mg PO BID PRN (Reason: Pain) potassium chloride [Klor-Con M20] 20 mEq Tablet,Er Particles/Crystals 20 meq PO MOWEFR levothyroxine 50 mcg tablet 100 mcg PO SA fluoxetine [Prozac] 20 mg Capsule 60 mg PO QHS rizatriptan 5 mg Tablet 5 mg PO Q2H PRN (Reason: Migraine Headache) cholecalciferol (vitamin D3) [Vitamin D3] 25 mcg (1,000 unit) Capsule 25 mcg PO DAILY Orencia 125 mg/mL Syringe 125 mg SUBCUT MO Ajovy Autoinjector 225 mg/1.5 mL Auto-Injector 225 mg SUBCUT QMONTH Rx Instructions: each month trazodone 50 mg tablet 50 mg PO QHS Label Comments: TAKE 1 TABLET BY MOUTH AT BEDTIME prednisone 5 mg tablet 5 mg PO DAILY Label Comments: TAKE 1 TABLET BY MOUTH ONCE DAILY. ropinirole 0.5 mg tablet 0.5 mg PO QHS Label Comments: ONE 1/2 TO 1 TAB AT BEDTIME montelukast 10 mg tablet 10 mg PO DAILY solifenacin 5 mg tablet 5 mg PO DAILY Referrals / Follow Up: Rosalnida Garrett DO [Primary Care Provider] - Within 1 Month (For hospital follow-up) Disposition Disposition (needs filled in before D/C Order can be placed): Home, Self Care Charges/Coding Visit Charges Inpatient E&M: 59718 Disch Hosp
== END 2023-05-09 01:16 | disposition home or self-care (01) ==
LOC: ED 22:41 → PCU 22:50
PROVIDERS: Admitting Provider Hospitalist; Emergency Provider Emergency Medicine; PCP Internal Medicine; Visit Provider Internal Medicine
DX: R07.89 Other chest pain (principal); M06.9 Rheumatoid arthritis, unspecified; G89.29 Other chronic pain; J45.909 Unspecified asthma, uncomplicated; E03.9 Hypothyroidism, unspecified; E78.5 Hyperlipidemia, unspecified; G25.81 Restless legs syndrome; K21.9 Gastro-esophageal reflux disease without esophagitis; I10 Essential (primary) hypertension; Z79.899 Other long term (current) drug therapy; Z79.890 Hormone replacement therapy; R06.02 Shortness of breath
CPT/HCPCS: 36415; 71045; 78452; 80048; 80061; 83880; 84484; 85025; 85379; 93005; 93017; 93306; 94640; 99221; 99285; A9500; G0378

== ENCOUNTER → 2023-05-29 | Outpatient (CLI) | payer BC, SELFPAY ==
--- NOTE | 2023-05-29 13:21 | RAD_ITS ---
STUDY: X-RAY - LUMBAR SPINE REASON FOR EXAM: Female, 52 years old. LUMBOSACRAL RADICULOPATHY TECHNIQUE: 3 view(s) of the lumbar spine were obtained. COMPARISON: May 03, 2021 Lumbar Spine x-ray FINDINGS: Normal lumbar lordosis. There is no substantial scoliosis. There is a normal alignment of the vertebrae. This visualized spinal fusion L3-L4 with a visualized laminectomy at the same level. There are bilateral spinal rods. There is mild disc space narrowing L2-L3 and L4-L5. The soft tissue structures are unremarkable. RAD/Lumbar Spine 2 or 3 Views IMPRESSION: Interval post spinal fusion laminectomy L3-L4. Mild degenerative change. No apparent acute loss of height or alignment. Electronically Signed: Georgia Carroll MD at 22:56 EDT ,
== END | disposition home or self-care (01) ==
LOC: MTRAD 13:20
PROVIDERS: PCP Internal Medicine; Visit Provider Nurse Practitioner Acute Care
DX: M51.37 Other intervertebral disc degeneration, lumbosacral region (principal); M54.17 Radiculopathy, lumbosacral region; M47.817 Spondylosis without myelopathy or radiculopathy, lumbosacral region
CPT/HCPCS: 72100

== ENCOUNTER → 2023-10-01 | Outpatient (CLI) | payer BC, SELFPAY ==
--- NOTE | 2023-10-01 16:33 | RAD_ITS ---
STUDY: X-RAY CHEST REASON FOR EXAM: Female, 52 years old. Cough. TECHNIQUE: Frontal and lateral views of the chest. COMPARISON: May 08, 2023. FINDINGS: Stable mild hyperinflation. There is no demonstrated pleural abnormality. Normal size heart. Normal mediastinum and ivy. Normal visualized pulmonary arteries. Normal visualized aortic arch and descending thoracic aorta. Normal visualized thoracic spine. Normal visualized ribs, clavicles, and shoulders. No abnormality of the visualized soft tissue structures of the upper abdomen. RAD/Chest PA and Lateral IMPRESSION: Stable mild hyperinflation with no acute or active cardiopulmonary disease. Electronically Signed: Slava Lake MD at 9:35 EST ,
== END | disposition home or self-care (01) ==
PROVIDERS: PCP Internal Medicine; Referring Provider Nurse Practitioner Family; Visit Provider Nurse Practitioner Family
DX: R05.9 Cough, unspecified (principal)
CPT/HCPCS: 71046

== ENCOUNTER → 2023-10-10 | Outpatient (CLI) | payer BC, SELFPAY ==
[2023-10-10 14:41] LABS: Absolute Lymphocyte Count 0.77 X10^3/uL (0.83-4.51); Absolute Neutrophil Count 6.2 X10^3/uL (2.0-7.7); Basophil# 0.04 X10^3/uL; Basophil% 0.5 % (0-1); Eosinophil# 0.01 X10^3/uL; Eosinophils% 0.1 % (0-5); Hematocrit 42.5 % (37-47); Hemoglobin 13.3 g/dL (12.0-15.0); Lymphocyte # 0.77 X10^3/ul (0.83-4.51); Lymphocyte % 10.1 % (19-41); Mean Corp Hgb Conc 31.3 g/dL (32-36); Mean Corpuscular Hgb 30.4 pg (27.0-32.0); Mean Corpuscular Volume 97.3 fL (81-99); Monocyte# 0.47 X10^3/uL; Monocyte% 6.2 % (0-10); NRBC Flagged by Analyzer 0 % (0-5); Neutrophil # 6.24 X10^3/uL (2.7-7.7); Neutrophil % 82.2 % (47-70); Platelet Count 313 K/mm3 (150-450); RBC Distribution Width CV 13.2 % (11.6-14.6); RBC Distribution Width SD 47.3 fl (35.1-43.9); Red Blood Count 4.37 M/mm3 (4.2-5.4); White Blood Count 7.6 K/mm3 (4.4-11.0)
[2023-10-10 15:22] LABS: ALB/GLOB Ratio 1.2 RATIO (0.9-2.4); AST(SGOT) 18 U/L (15-37); Alanine Aminotransfer ALT/SGPT 24 U/L (13-56); Albumin, Serum 3.8 g/dL (3.2-5.0); Alkaline Phosphatase 66 U/L (45-117); Anion Gap 5 (5-15); BUN 14 mg/dL (7-18); BUN/Creat Ratio 10.5 RATIO (10-20); Calcium,Total 9.1 mg/dL (8.5-10.1); Chloride 101 mmol/L (98-107); Creatinine, Serum 1.33 mg/dL (0.55-1.02); EST Glomerular Filtration Rate 44 mL/min (>60); Est Glom Filt Rate - Afr Amer 54 mL/min (>60); Globulin 3.3 g/dL (2.2-4.2); Glucose 93 mg/dL (74-106); Potassium 4.2 mmol/L (3.5-5.1); Protein, Total 7.1 g/dL (6.4-8.2); Sodium Level 137 mmol/L (136-145)
== END | disposition home or self-care (01) ==
LOC: MTLAB 13:18
PROVIDERS: PCP Internal Medicine; Referring Provider Internal Medicine Rheumatology; Visit Provider Internal Medicine Rheumatology
DX: M06.00 Rheumatoid arthritis without rheumatoid factor, unspecified site (principal); Z79.899 Other long term (current) drug therapy; M79.7 Fibromyalgia
CPT/HCPCS: 36415; 80053; 85025

== ENCOUNTER → 2023-12-31 | Outpatient (CLI) | payer BC, SELFPAY ==
[2023-12-31 15:30] LABS: Absolute Lymphocyte Count 0.59 X10^3/uL (0.83-4.51); Absolute Neutrophil Count 6.9 X10^3/uL (2.0-7.7); Basophil# 0.03 X10^3/uL; Basophil% 0.4 % (0-1); Hematocrit 39.8 % (37-47); Hemoglobin 12.4 g/dL (12.0-15.0); Lymphocyte # 0.59 X10^3/ul (0.83-4.51); Lymphocyte % 7.4 % (19-41); Mean Corp Hgb Conc 31.2 g/dL (32-36); Mean Corpuscular Hgb 30.3 pg (27.0-32.0); Mean Corpuscular Volume 97.3 fL (81-99); Mean Platelet Vol. 10.9 fl (6.2-12.0); NRBC Flagged by Analyzer 0 % (0-5); Neutrophil # 6.86 X10^3/uL (2.7-7.7); Neutrophil % 86.6 % (47-70); POSITIVE DIFFERENTIAL YES; Platelet Count 271 K/mm3 (150-450); RBC Distribution Width CV 13.2 % (11.6-14.6); RBC Distribution Width SD 47.3 fl (35.1-43.9); Red Blood Count 4.09 M/mm3 (4.2-5.4); White Blood Count 7.9 K/mm3 (4.4-11.0)
[2023-12-31 16:22] LABS: ALB/GLOB Ratio 1.2 RATIO (0.9-2.4); AST(SGOT) 30 U/L (15-37); Alanine Aminotransfer ALT/SGPT 26 U/L (13-56); Albumin, Serum 3.9 g/dL (3.2-5.0); Alkaline Phosphatase 67 U/L (45-117); Anion Gap 4 (5-15); BUN 12 mg/dL (7-18); BUN/Creat Ratio 8.9 RATIO (10-20); Calcium,Total 9.1 mg/dL (8.5-10.1); Chloride 102 mmol/L (98-107); Creatinine, Serum 1.35 mg/dL (0.55-1.02); EST Glomerular Filtration Rate 44 mL/min (>60); Est Glom Filt Rate - Afr Amer 53 mL/min (>60); Globulin 3.2 g/dL (2.2-4.2); Glucose 103 mg/dL (74-106); Protein, Total 7.1 g/dL (6.4-8.2); Sodium Level 137 mmol/L (136-145)
[2024-01-02 18:08] LABS: QNTFERON TB Nil Value 0 IU/mL (.); QNTFERON TB1+ Ag Value 0.02 IU/mL (.); QNTFERON TB2+ Ag Value 0.01 IU/mL (.); QNTIFERON TB Positive Criteria Negative (Negative)
== END | disposition home or self-care (01) ==
PROVIDERS: PCP Internal Medicine; Referring Provider Internal Medicine Rheumatology; Visit Provider Internal Medicine Rheumatology
DX: M06.00 Rheumatoid arthritis without rheumatoid factor, unspecified site (principal); Z79.899 Other long term (current) drug therapy; M79.7 Fibromyalgia
CPT/HCPCS: 36415; 80053; 85025; 86480

== ENCOUNTER 2024-03-15 10:32 | Inpatient (IN) | payer SELFPAY ==
[2024-03-15] VITALS (8 sets, daily range): BP systolic 99–140; BP diastolic 47–68; PULSE 71–86; RESP 14–18; TEMP 30.3–37.1; O2SAT 97–100; BMI 30.9; BMI 28.7
--- NOTE | 2024-03-15 10:46 | EDS_ITS ---
HPI History of Present Illness Chief Complaint: Abd Pain [facility] Medical History (Updated 03/15/24 @ 11:07 by Tahira Oswald) Chronic steroid use History of essential hypertension History of hyperlipidemia Hyperlipidemia Hypertension Hypothyroid Kidney disease Migraine Mitochondrial disease Secondary adrenal insufficiency Home Medications fluticasone 100 mcg-salmeterol 50 mcg/dose blistr powdr for inhalation (Advair Diskus) 1 puff inhalation DAILY BREATHING 02/22/16 [History Last Taken 03/14/24] furosemide 20 mg tablet 10 mg PO MOWEFR DIURETIC 02/22/16 [History Last Taken 03/12/24] gabapentin 300 mg capsule 600 mg PO QHS NERVE PAIN 02/22/16 [History Last Taken 03/14/24] hydroxychloroquine 200 mg tablet 300 mg PO DAILY arthritis 02/22/16 [History Last Taken 03/14/24] loratadine 10 mg tablet (Allergy Relief (loratadine)) 10 mg PO QHS ALLERGIES 02/22/16 [History Last Taken 03/14/24] methylphenidate HCl 10 mg tablet (Ritalin) 10 mg PO BID ADD 02/22/16 [History Last Taken 03/14/24] fremanezumab-vfrm 225 mg/1.5 mL subcutaneous auto-injector (Ajovy) 225 mg subcut QMONTH migraines 10/12/21 [History Last Taken Unknown] gabapentin 300 mg capsule 300 mg PO DAILY NERVE PAIN 10/12/21 [History Last Taken 03/14/24] lisinopril 20 mg tablet 20 mg PO DAILY BLOOD PRESSURE 10/12/21 [History Last Taken 03/14/24] potassium chloride 20 mEq tablet,extended release(part/cryst) (Klor-Con M) 20 meq PO MOWEFR supplement 10/12/21 [History Last Taken 03/12/24] montelukast 10 mg tablet 10 mg PO DAILY allergies 05/08/23 [History Last Taken 03/14/24] prednisone 5 mg tablet 5 mg PO DAILY inflammation 05/08/23 [History Last Taken 03/14/24] ropinirole 0.5 mg tablet 0.5 mg PO QHS restless legs 05/08/23 [History Last Taken 03/14/24] solifenacin 5 mg tablet 5 mg PO DAILY 05/08/23 [History Last Taken 03/14/24] abatacept 125 mg/mL subcutaneous syringe (Orencia) 125 mg subcut TU arthritis 06/18/23 [History Last Taken 03/09/24] amlodipine 5 mg tablet 5 mg PO DAILY 06/18/23 [History Last Taken 03/14/24] fluoxetine 20 mg capsule (Prozac) 60 mg PO QHS DEPRESSION 06/18/23 [History Last Taken 03/14/24] levothyroxine 50 mcg tablet 50 mcg PO DAILY THYROID 06/18/23 [History Last Taken 03/14/24] trazodone 50 mg tablet 50 mg PO QHS PRN sleep 06/18/23 [History Last Taken 03/14/24] multivitamin (Daily Multi-Vitamin tablet) 1 tab PO DAILY 03/15/24 [History Last Taken 03/14/24] omeprazole 40 mg capsule,delayed release 40 mg PO DAILY 03/15/24 [History Last Taken 03/14/24] rizatriptan 10 mg tablet 10 mg PO Q2H PRN migraine headache 03/15/24 [History Last Taken Unknown] rosuvastatin 10 mg tablet 10 mg PO QHS 03/15/24 [History Last Taken 03/14/24] tramadol 50 mg tablet 50 mg PO TID PRN PRN severe pain 03/15/24 [History Last Taken 03/14/24] Allergy/AdvReac Type Severity Reaction Status Date / Time adhesive tape AdvReac Severe Rash Verified 03/15/24 10:33 hydromorphone HCl AdvReac Itching Verified 03/15/24 10:33 [From Dilaudid] Family History Mother Heart disease Hypertension Cancer Lung, Bladder Father Hypertension Diabetes Brother Diabetes Hypertension Kidney disease Uncle Graves disease Aunt Graves disease Other Myocardial infarction Surgical History H/O section History of spinal fusion Hx of laminectomy Social History Smoking Status: Never smoker EXAM Physical Exam Const Vital Signs: 03/15/24 10:34 03/15/24 10:51 03/15/24 12:46 Temperature 86.5 F L 97.9 F Temperature Source Temporal Oral Pulse Rate 86 75 Respiratory Rate 14 16 Blood Pressure 140/54 H 126/60 H Blood Pressure Mean 82 82 Pulse Ox 99 98 Oxygen Delivery Method Room Air Room Air [facility] [place] Narrative Medical decision making narrative: HISTORY OF PRESENT ILLNESS: 50-year-old female presents with abdominal pain nausea vomiting. She states I think have rhabdo. Notes history similar. Notes 2 days ago she was doing approximate 7 hours of yard work as well as drinking alcohol. Notes after she developed nausea vomiting and diffuse muscle aches. REVIEW OF SYSTEMS: Pertinent positives: Abdominal pain nausea vomiting muscle aches Pertinent negatives: Chest pain, shortness of breath, focal weakness PHYSICAL EXAM: Nursing triage notes reviewed, Vital signs reviewed Constitutional: please see mdm HENT: MMM Eyes: Pupils equal round and reactive to light, Extraocular muscles intact Neck: No stridor, no JVD, full neck ROM Lungs: Clear to auscultation, No wheezing or rales. No increased work of breathing, no conversational dyspnea, no accessory muscle use, no nasal flaring. No respiratory distress noted Heart: Regular rate and rhythm, No murmurs, No rubs and No gallops, 2+ distal pulses (radial, femoral, posterior tibial) in all extremities Abdomen: Soft, there is no tenderness, rigidity, rebound or guarding, no obvious peritoneal signs, no palpable pulsatile abdominal masses, no auscultated abdominal bruit : No CVAT Extremities: No edema, diffuse TTP over upper and lower extremities Neuro: No focal neurological deficits, cranial nerves II through XII intact, 5/5 strength in all extremities. Intact sensation to light touch in all extremities, 2+ reflexes bilateral patella tendons. Normal gait. No ataxia. Skin: No rash or lesions noted MEDICAL DECISION MAKING: Chief Complaint: Abdominal pain nausea External records reviewed: Prior imaging reviewed: No recent Marquez imaging the abdomen pelvis Factors affecting care: Hypertension, GERD Social determinants of health: Denies drug use History obtained from others: Patient's Consults: Internal medicine (Dr. Jansen) [facility] Narrative: Patient was initially hemodynamically stable patient was hypothermic (resolved without intervention), diffuse abdominal pain noted. No peritoneal signs. I considered the following differential diagnosis: AAA, small bowel obstruction, abdominal perforation, appendicitis, pancreatitis, hepatobiliary pathology (acute cholecystitis), mesenteric ischemia, pathology (ie nephrolithiasis, pyelonephritis), Rhabdomyolysis, POLY, electrolyte disturbance ALL IMAGES (IF OBTAINED) HAVE BEEN PERSONALLY REVIEWED AND INTERPRETED BY MYSELF. CBC without leukocytosis, severe anemia, no thrombocytopenia. CMP without evidence of acute kidney injury, significant electrolyte abnormality, anion gap, no evidence hepatobiliary pathology. CK elevated consistent with rhabdomyolysis Lipase elevated Urinalysis shows no evidence of urinary inflammation suggestive of UTI CT scan ordered however deferred by patient The synthesis of the patient's history, physical exam, labs images suggest dehydration and rhabdomyolysis. Given ongoing nausea and vomiting will require admission for IV fluids. Admitted under hospitalist. The patient and/or family, caregivers express understanding. The patient and/or family, caregivers agrees with the plan. Shared decision making: I will have a discussion with the patient and or visitors regarding risk/delroy efits of further testing or admission. They will be made aware of of the risk/benefits inherent in this decision they will be given the opportunity to voice understanding. Total critical care time today provided was at least 0 minutes. This excludes separately billable procedures. Critical care time (if documented) is secondary to the patient having high probability of clinically significant/life threatening deterioration in the patient's condition which required my urgent intervention. Impression: 1. Intractable nausea vomiting 2. Dehydration 3. Rhabdomyolysis Dispo: Admit to floor This note was generated with [employer] dictation software. It may contain incorrect words, spelling, and punctuation that were not noted in review of the chart prior to signing. Lab Data Labs: Laboratory Results - last 24 hr 03/15/24 03/15/24 11:45 12:40 WBC 7.0 RBC 4.22 Hgb 12.9 Hct 40.3 MCV 95.5 MCH 30.6 MCHC 32.0 RDW Std Deviation 47.1 H RDW Coeff of [place] 13.4 Plt Count 216 MPV 9.9 Immature Gran % (Auto) 2.300 H Neut % (Auto) 68.8 Lymph % (Auto) 18.5 L [place] % (Auto) 9.3 Eos % (Auto) 0.7 Baso % (Auto) 0.4 Absolute Neuts (auto) 4.8 Absolute Lymphs (auto) 1.29 Nucleated RBC % 0 Sodium 144 Potassium 3.7 Chloride 110 H Carbon Dioxide 26.0 Anion Gap 8 BUN 12 Creatinine 1.21 H Estim Creat Clear Calc 57.68 Est GFR (MDRD) Af Amer 60 Est GFR (MDRD) Non-Af 49 L BUN/Creatinine Ratio 9.9 L Glucose 105 Calcium 8.3 L Total Bilirubin 0.40 Direct Bilirubin 0.12 AST 122 H ALT 54 Alkaline Phosphatase 55 Total Creatine Kinase 3121 H Total Protein 5.8 L Albumin 3.0 L Globulin 2.8 Lipase 91 H Urine Color Yellow Urine Clarity Clear Urine pH 5.0 Ur Specific [place] 1.020 Urine Protein 15 H Urine Glucose (UA) Normal Urine Ketones Negative Urine Occult Blood 25 H Urine Nitrite Negative Urine Bilirubin Negative Urine Urobilinogen Normal Ur Leukocyte Esterase 100 H Urine RBC 0-5 SEEN Urine WBC 5-10 SEEN Ur Squamous Epith Cells 0-5 SEEN Urine Bacteria 1+ Urine Mucus 1+ Discharge Plan Disposition Disposition: Acute Care Hospital [facility] Discharge Date/Time: 03/15/24 14:50
[2024-03-15] MEDS: Ondansetron 4 MG/2 ML Vial IV ×2 (11:02→15:59)
[2024-03-15] MEDS: Ketorolac 15 MG/ML Vial IV (11:02)
[2024-03-15] MEDS: 0.9% Normal Saline (1000mL) 1,000 ML 1000 ML IV (11:02)
[2024-03-15 11:59] LABS: Absolute Lymphocyte Count 1.29 X10^3/uL (0.83-4.51); Absolute Neutrophil Count 4.8 X10^3/uL (2.0-7.7); Basophil# 0.03 X10^3/uL; Basophil% 0.4 % (0-1); Eosinophil# 0.05 X10^3/uL; Eosinophils% 0.7 % (0-5); Hematocrit 40.3 % (37-47); Hemoglobin 12.9 g/dL (12.0-15.0); Lymphocyte # 1.29 X10^3/ul (0.83-4.51); Lymphocyte % 18.5 % (19-41); Mean Corpuscular Hgb 30.6 pg (27.0-32.0); Mean Corpuscular Volume 95.5 fL (81-99); Mean Platelet Vol. 9.9 fl (6.2-12.0); Monocyte# 0.65 X10^3/uL; Monocyte% 9.3 % (0-10); NRBC Flagged by Analyzer 0 % (0-5); Neutrophil % 68.8 % (47-70); Platelet Count 216 K/mm3 (150-450); RBC Distribution Width CV 13.4 % (11.6-14.6); RBC Distribution Width SD 47.1 fl (35.1-43.9); Red Blood Count 4.22 M/mm3 (4.2-5.4)
[2024-03-15 12:53] LABS: Color, Urine Yellow (Yellow); Glucose, Dipstick Normal (Normal); Ketone-Dipstick Negative (Negative); Leukocyte Esterase-Dipstick 100 /ul (Negative); Nitrite-Dipstick Negative (Negative); Occult Blood-Urine 25 /ul (Negative); Protein-Dipstick 15 mg/dl (Negative); Urine Bilirubin Dipstick Negative (Negative); Urine Clarity Clear (Clear); Urine Urobilinogen Normal (Normal)
[2024-03-15] MEDS: Metoclopramide 10 MG/2 ML Vial 5 MG IV (12:54)
[2024-03-15 12:55] LABS: AST(SGOT) 122 U/L (15-37); Alanine Aminotransfer ALT/SGPT 54 U/L (13-56); Alkaline Phosphatase 55 U/L (45-117); Anion Gap 8 (5-15); BUN 12 mg/dL (7-18); BUN/Creat Ratio 9.9 RATIO (10-20); Bilirubin, Direct 0.12 mg/dL (0.00-0.30); CPK Total, Creatine Kinase 3121 U/L (26-192); Calcium,Total 8.3 mg/dL (8.5-10.1); Chloride 110 mmol/L (98-107); Creatinine, Serum 1.21 mg/dL (0.55-1.02); EST Glomerular Filtration Rate 49 mL/min (>60); Est Glom Filt Rate - Afr Amer 60 mL/min (>60); Estimated Creatinine Clearance 57.68 ml/min; Globulin 2.8 g/dL (2.2-4.2); Glucose 105 mg/dL (74-106); Lipase 91 U/L (13-75); Potassium 3.7 mmol/L (3.5-5.1); Protein, Total 5.8 g/dL (6.4-8.2); Sodium Level 144 mmol/L (136-145)
[2024-03-15 13:00] LABS: Bacteria 1+ /hpf (None Seen); Mucous, Urine 1+ /hpf (<or=2+); Red Blood Cells-Urine 0-5 SEEN /hpf (0-5); Squamous Epithelial Cells - UA 0-5 SEEN /hpf (5-10); White Blood Cells 5-10 SEEN /hpf (0-5)
[2024-03-15] MEDS: 0.9% Normal Saline (1000mL) 1,000 ML 999 ML IV (13:00)
--- NOTE | 2024-03-15 13:39 | PCM.HP.STD ---
[facility] - General General Date of Admission: 03/15/24 Date of Service: 03/15/24 Chief Complaint: Nausea, Vomiting and Abdominal Pain. HPI Narrative KRISTIN FAUST, is a 53 F with a past medical history of essential hypertension, hyperlipidemia, hypothyroidism, obesity; with BMI of 31 this admission, asthma, RA; with secondary adrenal insufficiency due to chronic steroid use, history of mitochondrial disease, ADD, RLS, depression, migraine headaches, GERD, history of , history of hysterectomy and history of rhabdomyolysis who presents to [facility] ER complaining of nausea, vomiting and abdominal pain. Mrs. Faust reports her symptoms began approximately one day prior to admission after she engaged in strenuous activity helping her mother in the yard all day on March 14, 2024. She then noted diffuse cramping abdominal pain followed by nausea with bilious emesis that was uncontrollable at home so she decided to come in for further evaluation and treatment. She denies associated fever, chills, diarrhea, constipation, chest pain or SOB. In the ER she was noted to have an elevated CK of 3,121 U/L consistent with suspected rhabdomyolysis due to recent overexertion complicated by a UA positive for Acute Cystitis; without hematuria compounded by clinical evidence of intractable nausea and vomiting with bilious emesis and she was then admitted to the general medical floor for ongoing care for a stay that is expected to be greater than 48 hours. [facility] [place] Medical History Anemia Anxiety Chronic pain Chronic steroid use GERD (gastroesophageal reflux disease) History of essential hypertension History of hyperlipidemia Hyperlipidemia Hypertension Hypothyroid Kidney disease Kidney stones Migraine Mitochondrial disease Non-smoker Osteoporosis Secondary adrenal insufficiency Home Medications fluticasone 100 mcg-salmeterol 50 mcg/dose blistr powdr for inhalation (Advair Diskus) 1 puff inhalation DAILY BREATHING 02/22/16 [History Last Taken 03/14/24] furosemide 20 mg tablet 10 mg PO MOWEFR DIURETIC 02/22/16 [History Last Taken 03/12/24] gabapentin 300 mg capsule 600 mg PO QHS NERVE PAIN 02/22/16 [History Last Taken 03/14/24] hydroxychloroquine 200 mg tablet 300 mg PO DAILY arthritis 02/22/16 [History Last Taken 03/14/24] loratadine 10 mg tablet (Allergy Relief (loratadine)) 10 mg PO QHS ALLERGIES 02/22/16 [History Last Taken 03/14/24] methylphenidate HCl 10 mg tablet (Ritalin) 10 mg PO BID ADD 02/22/16 [History Last Taken 03/14/24] fremanezumab-vfrm 225 mg/1.5 mL subcutaneous auto-injector (Ajovy) 225 mg subcut QMONTH migraines 10/12/21 [History Last Taken Unknown] gabapentin 300 mg capsule 300 mg PO DAILY NERVE PAIN 10/12/21 [History Last Taken 03/14/24] lisinopril 20 mg tablet 20 mg PO DAILY BLOOD PRESSURE 10/12/21 [History Last Taken 03/14/24] potassium chloride 20 mEq tablet,extended release(part/cryst) (Klor-Con M) 20 meq PO MOWEFR supplement 10/12/21 [History Last Taken 03/12/24] montelukast 10 mg tablet 10 mg PO DAILY allergies 05/08/23 [History Last Taken 03/14/24] prednisone 5 mg tablet 5 mg PO DAILY inflammation 05/08/23 [History Last Taken 03/14/24] ropinirole 0.5 mg tablet 0.5 mg PO QHS restless legs 05/08/23 [History Last Taken 03/14/24] solifenacin 5 mg tablet 5 mg PO DAILY 05/08/23 [History Last Taken 03/14/24] abatacept 125 mg/mL subcutaneous syringe (Orencia) 125 mg subcut TU arthritis 06/18/23 [History Last Taken 03/09/24] amlodipine 5 mg tablet 5 mg PO DAILY 06/18/23 [History Last Taken 03/14/24] fluoxetine 20 mg capsule (Prozac) 60 mg PO QHS DEPRESSION 06/18/23 [History Last Taken 03/14/24] levothyroxine 50 mcg tablet 50 mcg PO DAILY THYROID 06/18/23 [History Last Taken 03/14/24] trazodone 50 mg tablet 50 mg PO QHS PRN sleep 06/18/23 [History Last Taken 03/14/24] multivitamin (Daily Multi-Vitamin tablet) 1 tab PO DAILY 03/15/24 [History Last Taken 03/14/24] omeprazole 40 mg capsule,delayed release 40 mg PO DAILY 03/15/24 [History Last Taken 03/14/24] rizatriptan 10 mg tablet 10 mg PO Q2H PRN migraine headache 03/15/24 [History Last Taken Unknown] rosuvastatin 10 mg tablet 10 mg PO QHS 03/15/24 [History Last Taken 03/14/24] tramadol 50 mg tablet 50 mg PO TID PRN PRN severe pain 03/15/24 [History Last Taken 03/14/24] Allergy/AdvReac Type Severity Reaction Status Date / Time adhesive tape AdvReac Severe Rash Verified 03/15/24 10:33 hydromorphone HCl AdvReac Itching Verified 03/15/24 10:33 [From Dilaudid] Family History Mother Heart disease Hypertension Cancer Lung, Bladder Father Hypertension Diabetes Brother Diabetes Hypertension Kidney disease Uncle Graves disease Aunt Graves disease Other Myocardial infarction Surgical History H/O section History of spinal fusion Hx of laminectomy Social History Smoking Status: Never smoker ROS ROS Narrative Review of systems: General: Patient denies fever or chills. HENT: Denies headache, denies stuffy nose, denies sore throat EYES: Denies changes in vision or discharge from eyes. Resp: Denies cough, denies shortness of breath Cardiac: Denies chest pain, palpitations or heart racing. GI: Patient admits to nausea and bilious emesis with generalized cramping abdominal pain as per HPI. : Denies changes in urination Extremity: Denies swelling Musculoskeletal: Feels somewhat generally weak and unwell with generalized myalgias. Neuro: Patient denies related headache, paresthesias or focal neurologic deficits. Heme: Denies easy bleeding or easy bruising Skin: Denies rashes Psychiatric: No complaints voiced related to uncontrolled depression or anxiety. Endocrine: No polyuria, polydipsia or polyphagia. The rest of the 14 point ROS was negative except for positives in HPI. Vital Signs Vital Signs Vital Signs: 03/15/24 10:34 03/15/24 10:51 03/15/24 12:46 Temperature 86.5 F L 97.9 F Temperature Source Temporal Oral Pulse Rate 86 75 Respiratory Rate 14 16 Blood Pressure 140/54 H 126/60 H Blood Pressure Mean 82 82 Pulse Ox 99 98 Oxygen Delivery Method Room Air Room Air Weight Weight: 186 lb Body Mass Index (BMI) 30.9 Physical Exam Const alert, oriented x3, no apparent distress and average body habitus General Appearance: cooperative HEENT normocephalic, head/scalp atraumatic and hearing grossly normal bilaterally HEENT Narrative: Mucous membranes dry. Eyes PERRL, EOMs intact bilaterally and conjunctivae normal Neck no lymphadenopathy and supple Resp normal respiratory effort, no retractions, no use of accessory muscles and clear to auscultation bilaterally Cardio regular rate and regular rhythm GI normal to inspection, nondistended, normoactive bowel sounds, soft to palpation and non-distended GI Narrative: Mild generalized TTP. Extremity normal to inspection, full ROM and no clubbing, cyanosis or edema Skin Skin Narrative: Patient has no evidence of abscess, jaundice or rash. Neuro oriented x3, CN's II-XII intact bilaterally, moves all extremities and no focal motor deficits Sensorium / Orientation: awake, alert, oriented to person, oriented to place and oriented to time Speech: speech normal Motor Exam: strength 5/5 throughout Psych affect normal Results Medical Records Data Attestation: I reviewed the patient's medical records Lab / Micro Data Attestation: I reviewed the patient's lab results. 03/15/24 11:45 03/15/24 11:45 Labs: Laboratory Results - last 24 hr 03/15/24 11:45: WBC 7.0, RBC 4.22, Hgb 12.9, Hct 40.3, MCV 95.5, MCH 30.6, MCHC 32.0, RDW Std Deviation 47.1 H, RDW Coeff of [place] 13.4, Plt Count 216, MPV 9.9, Immature Gran % (Auto) 2.300 H, Neut % (Auto) 68.8, Lymph % (Auto) 18.5 L, [place] % (Auto) 9.3, Eos % (Auto) 0.7, Baso % (Auto) 0.4, Absolute Neuts (auto) 4.8, Absolute Lymphs (auto) 1.29, Nucleated RBC % 0, Sodium 144, Potassium 3.7, Chloride 110 H, Carbon Dioxide 26.0, Anion Gap 8, BUN 12, Creatinine 1.21 H, Estim Creat Clear Calc 57.68, Est GFR (MDRD) Af Amer 60, Est GFR (MDRD) Non-Af 49 L, BUN/Creatinine Ratio 9.9 L, Glucose 105, Calcium 8.3 L, Total Bilirubin 0.40, Direct Bilirubin 0.12, AST 122 H, ALT 54, Alkaline Phosphatase 55, Total Creatine Kinase 3121 H, Total Protein 5.8 L, Albumin 3.0 L, Globulin 2.8, Lipase 91 H 03/15/24 12:40: Urine Color Yellow, Urine Clarity Clear, Urine pH 5.0, Ur Specific [place] 1.020, Urine Protein 15 H, Urine Glucose (UA) Normal, Urine Ketones Negative, Urine Occult Blood 25 H, Urine Nitrite Negative, Urine Bilirubin Negative, Urine Urobilinogen Normal, Ur Leukocyte Esterase 100 H, Urine RBC 0-5 SEEN, Urine WBC 5-10 SEEN, Ur Squamous Epith Cells 0-5 SEEN, Urine Bacteria 1+, Urine Mucus 1+ Imaging Patient declined CT scan of abdomen pelvis in ER. Assessment & Plan Assessment/Plan (1) Rhabdomyolysis: QUALIFIERS: Rhabdomyolysis type: non-traumatic Qualified Code(s): M62.82 - Rhabdomyolysis (2) Acute cystitis without hematuria: (3) Intractable nausea and vomiting: (4) Rheumatoid arthritis: QUALIFIERS: Rheumatoid arthritis location: unspecified site Rheumatoid factor presence: unspecified presence Qualified Code(s): M06.9 - Rheumatoid arthritis, unspecified (5) Chronic steroid use: (6) Secondary adrenal insufficiency: PLAN: Plan 1. Rhabdomyolysis evidenced by elevated CK of 3,121 U/L present on admission after recent overexertion in the setting of previously known rhabdomyolysis - Admit to general medical floor. Give vigorous IV volume resuscitation with normal saline and recheck CK level in a.m. to ensure improvement. Avoid potentially nephrotoxic agents. Patient was instructed not to overexert herself in the future to prevent serial readmission. 2. Acute Cystitis; without hematuria complicating #1 - Start empiric IV Rocephin and await culture and sensitivity data. Give Tylenol as needed pain or fever. 3. Abdominal pain with intractable nausea vomiting compounding #1 & #2 - Patient refused CT scan of the abdomen pelvis in the ER but abdomen is soft, nondistended and appears nonsurgical. Give Protonix 40 mg IV daily. Give Zofran IV as needed for nausea or vomiting. Give morphine IV as needed for severe (level 6-10 out of 10) pain. 4. Essential hypertension - Continue Norvasc at this time but hold other antihypertensive agents until volume status is corrected. Give IV hydralazine as needed for systolic blood pressure greater than 160 mmHg. 4. Hyperlipidemia - Resume statin and check lipid profile. 5. Hypothyroidism - Continue Synthroid as previous. 6. Obesity; with BMI of 31 this admission - Weight loss will be recommended. 7. Asthma - Stable with no evidence of acute flare at this time. Continue as needed nebulizers. 8. RA; with secondary adrenal insufficiency due to chronic steroid use - Home regimen will be continued. 9. History of mitochondrial disease - Patient claims her underlying medical renal disease predisposes her to rhabdomyolysis. She states it has been a long time since she has triggered about of rhabdomyolysis due to overactivity - but now she states she will be more careful in the future. 10. ADD - Continue Ritalin as before. 11. RLS - Resume Requip as previous. 12. Depression - Continue home regimen plus give prn Xanax for breakthrough symptoms. 13. Migraine headaches - Resume prn triptan as previous. 14. GERD - Continue PPI IV in light of #3. 15. History of - Noted. 16. History of hysterectomy - Noted. 17. DVT prophylaxis - Lovenox 40 mg sq daily. Total time: Approximately 75 minutes. Charges/Coding Visit Charges [facility]: [facility]
--- NOTE | 2024-03-15 13:40 | NURSING ---
HOSPITALIST FOR DR RUANO
--- NOTE | 2024-03-15 13:44 | NURSING ---
MED SURG QUITA RHABDOMYOLYSIS
[2024-03-15] MEDS: 0.9% Normal Saline (1000mL) 1,000 ML 125 ML IV ×2 (15:59→23:33)
[2024-03-15] MEDS: Ceftriaxone 1 GM/50 ML BAG IV (15:59)
[2024-03-15] MEDS: Potassium Chloride Oral Tablet 20 MEQ PO (17:56)
[2024-03-15] MEDS: Budesonide Respules 0.5 MG/2 ML AMPUL.NEB. INHALATION (19:10)
[2024-03-15] MEDS: Albuterol 2.5 MG/3 ML VIAL.NEB. INHALATION (19:10)
[2024-03-15] MEDS: Morphine 2 MG/ML Syringe IV (19:43)
[2024-03-15] MEDS: 0.9% Saline Lock 10 ML Syringe IV (19:43)
[2024-03-15] MEDS: FLUoxetine 20 MG Capsule 60 MG PO (20:54)
[2024-03-15] MEDS: Loratadine 10 MG Tablet PO (20:54)
[2024-03-15] MEDS: Gabapentin 600 MG Tablet PO (20:54)
[2024-03-15] MEDS: Atorvastatin Calcium 20 MG Tablet PO (20:55)
[2024-03-15] MEDS: Pramipexole Di-HCl 0.25 MG Tablet PO (20:55)
[2024-03-15] MEDS: Methylphenidate HCl 5 MG Tablet 10 MG PO (21:03)
[2024-03-16] VITALS (7 sets, daily range): BP systolic 91–112; BP diastolic 40–60; PULSE 56–80; RESP 16–17; TEMP 36.4–37.3; O2SAT 94–98
[2024-03-16] MEDS: traZODone 50 MG Tablet PO ×2 (00:20→20:46)
[2024-03-16] MEDS: Rizatriptan Benzoate 10 MG Tablet PO ×3 (00:20→08:26)
[2024-03-16] MEDS: Morphine 2 MG/ML Syringe IV ×2 (02:56→09:50)
[2024-03-16 06:22] LABS: Absolute Neutrophil Count 4.1 X10^3/uL (2.0-7.7); Basophil# 0.01 X10^3/uL; Basophil% 0.2 % (0-1); Eosinophil# 0.03 X10^3/uL; Eosinophils% 0.5 % (0-5); Hematocrit 36.1 % (37-47); Hemoglobin 11.6 g/dL (12.0-15.0); Lymphocyte % 23.9 % (19-41); Mean Corp Hgb Conc 32.1 g/dL (32-36); Mean Corpuscular Hgb 30.8 pg (27.0-32.0); Mean Corpuscular Volume 95.8 fL (81-99); Mean Platelet Vol. 10.3 fl (6.2-12.0); Monocyte# 0.61 X10^3/uL; Monocyte% 9.7 % (0-10); NRBC Flagged by Analyzer 0 % (0-5); Neutrophil # 4.09 X10^3/uL (2.7-7.7); Neutrophil % 65.1 % (47-70); Platelet Count 195 K/mm3 (150-450); RBC Distribution Width CV 13.4 % (11.6-14.6); RBC Distribution Width SD 47.4 fl (35.1-43.9); Red Blood Count 3.77 M/mm3 (4.2-5.4); White Blood Count 6.3 K/mm3 (4.4-11.0)
[2024-03-16] MEDS: Levothyroxine 50 MCG Tablet PO (06:32)
[2024-03-16] MEDS: 0.9% Normal Saline (1000mL) 1,000 ML 125 ML IV ×3 (07:27→23:48)
[2024-03-16 07:30] LABS: AST(SGOT) 106 U/L (15-37); Alanine Aminotransfer ALT/SGPT 50 U/L (13-56); Albumin, Serum 2.6 g/dL (3.2-5.0); Alkaline Phosphatase 49 U/L (45-117); Anion Gap 3 (5-15); BUN 6 mg/dL (7-18); CPK Total, Creatine Kinase 3022 U/L (26-192); Chloride 115 mmol/L (98-107); EST Glomerular Filtration Rate 62 mL/min (>60); Est Glom Filt Rate - Afr Amer 75 mL/min (>60); Estimated Creatinine Clearance 67.27 ml/min; Globulin 2.5 g/dL (2.2-4.2); Glucose 96 mg/dL (74-106); Potassium 3.8 mmol/L (3.5-5.1); Protein, Total 5.1 g/dL (6.4-8.2); Sodium Level 144 mmol/L (136-145)
[2024-03-16] MEDS: predniSONE 5 MG Tablet PO (07:32)
[2024-03-16] MEDS: Montelukast 10 MG Tablet PO (07:33)
[2024-03-16] MEDS: Hydroxychloroquine 200 MG Tablet 300 MG PO (07:33)
[2024-03-16] MEDS: Multivitamins,Therapeutic Tablet 1 TABLET PO (07:33)
[2024-03-16] MEDS: Methylphenidate HCl 5 MG Tablet 10 MG PO (07:38)
[2024-03-16] MEDS: Albuterol 2.5 MG/3 ML VIAL.NEB. INHALATION ×2 (07:43→19:29)
[2024-03-16] MEDS: Budesonide Respules 0.5 MG/2 ML AMPUL.NEB. INHALATION ×2 (07:43→19:29)
--- NOTE | 2024-03-16 07:45 | PN.HOSP_ITS ---
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 She suspected she had rhabdo myelitis is given recent extension where she went inhale for 7 hours CPK on admission was 3121. Objective Data Objective Data Vital Signs: Vital Signs Temp Pulse Resp BP Pulse Ox O2 Del Method 98.5 F 74 17 102/57 L 97 Room Air 03/16/24 01:54 03/16/24 07:41 03/16/24 07:41 03/16/24 01:54 03/16/24 01:54 03/16/24 01:55 Oxygen Delivery Method Room Air Weight: 78.245 kg Body Mass Index (BMI) 28.7 Intake & Output: Intake and Output for Last 24 Hours 03/14/24 03/15/24 03/16/24 23:59 23:59 23:59 Intake Total 2933.33 / 2933.33 987.5 / 987.5 Balance 2933.33 / 2933.33 987.5 / 987.5 Lab / Micro Data 03/16/24 06:02 03/16/24 06:02 Labs: Laboratory Results - last 24 hr 03/15/24 11:45: WBC 7.0, RBC 4.22, Hgb 12.9, Hct 40.3, MCV 95.5, MCH 30.6, MCHC 32.0, RDW Std Deviation 47.1 H, RDW Coeff of Stuart 13.4, Plt Count 216, MPV 9.9, Immature Gran % (Auto) 2.300 H, Neut % (Auto) 68.8, Lymph % (Auto) 18.5 L, [place] % (Auto) 9.3, Eos % (Auto) 0.7, Baso % (Auto) 0.4, Absolute Neuts (auto) 4.8, Absolute Lymphs (auto) 1.29, Nucleated RBC % 0, Sodium 144, Potassium 3.7, Chloride 110 H, Carbon Dioxide 26.0, Anion Gap 8, BUN 12, Creatinine 1.21 H, Estim Creat Clear Calc 57.68, Est GFR (MDRD) Af Amer 60, Est GFR (MDRD) Non-Af 49 L, BUN/Creatinine Ratio 9.9 L, Glucose 105, Calcium 8.3 L, Total Bilirubin 0.40, Direct Bilirubin 0.12, AST 122 H, ALT 54, Alkaline Phosphatase 55, Total Creatine Kinase 3121 H, Total Protein 5.8 L, Albumin 3.0 L, Globulin 2.8, Lipase 91 H 03/15/24 12:40: Urine Color Yellow, Urine Clarity Clear, Urine pH 5.0, Ur Specific [place] 1.020, Urine Protein 15 H, Urine Glucose (UA) Normal, Urine Ketones Negative, Urine Occult Blood 25 H, Urine Nitrite Negative, Urine Bilirubin Negative, Urine Urobilinogen Normal, Ur Leukocyte Esterase 100 H, Urine RBC 0-5 SEEN, Urine WBC 5-10 SEEN, Ur Squamous Epith Cells 0-5 SEEN, Urine Bacteria 1+, Urine Mucus 1+ 03/16/24 06:02: WBC 6.3, RBC 3.77 L, Hgb 11.6 L, Hct 36.1 L, MCV 95.8, MCH 30.8, MCHC 32.1, RDW Std Deviation 47.4 H, RDW Coeff of Stuart 13.4, Plt Count 195, MPV 10.3, Immature Gran % (Auto) 0.600, Neut % (Auto) 65.1, Lymph % (Auto) 23.9, [place] % (Auto) 9.7, Eos % (Auto) 0.5, Baso % (Auto) 0.2, Absolute Neuts (auto) 4.1, Absolute Lymphs (auto) 1.50, Nucleated RBC % 0, Sodium 144, Potassium 3.8, Chloride 115 H, Carbon Dioxide 26.0, Anion Gap 3 L, BUN 6 L, Creatinine 1.00, Estim Creat Clear Calc 67.27, Est GFR (MDRD) Af Amer 75, Est GFR (MDRD) Non-Af 62, BUN/Creatinine Ratio 6.0 L, Glucose 96, Calcium 8.0 L, Total Bilirubin 0.20, AST 106 H, ALT 50, Alkaline Phosphatase 49, Total Creatine Kinase 3022 H, Total Protein 5.1 L, Albumin 2.6 L, Globulin 2.5, Albumin/Globulin Ratio 1.0 Physical Exam Narrative GENERAL: cooperative HEENT: Atraumatic; normocephalic EYES; Anicteric, Normal Conjunctiva NECK; supple, normal thyroid, RESPIRATORY: Diminished to auscultation CARDIOVASCULAR: Regular S1 S2, GI: soft, normoactive bowel sounds, : No Renal angle tenderness; EXTREMITIES: No edema, no clubbing, MUSCULOSKELETAL: no muscle wasting NEURO: Awake; no lateralizing signs. SKIN: No Rash PSYCH; Flat affect Assessment & Plan Assessment/Plan (1) Rhabdomyolysis: QUALIFIERS: Rhabdomyolysis type: non-traumatic Qualified Code(s): M62.82 - Rhabdomyolysis PLAN: Plan Patient is a 53-year-old female who presented with abdominal pain with associated nausea and vomiting. She suspected she had rhabdo myelitis is given recent extension where she went inhale for 7 hours CPK on admission was 3121. 1. Acute rhabdomyolysis ? CK on admission was 3121. Admitted to regular nursing floor managed with hydration with subsequent monitoring of CPK levels ordered 2. Acute cystitis without hematuria ? Patient started on ceftriaxone cultures sent 3. Hypertension - Blood pressure controlled, home medications continued with dose adjustment as needed 4. Dyslipidemia -Patient is on statin therapy, continued at home dose 5. Hypothyroidism - Patient is on levothyroxine home dose continued 6. Rheumatoid arthritis ? Patient is on hydroxychloroquine as well as abatacept 7. Mild intermittent asthma ? 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 ADD ? Patient is on Reglan 10. Restless leg syndrome ? Patient is on Requip 11. GERD ? Patient is on PPI 12. Depression ? Patient is on SSRI home dose continue next 13. DVT prophylaxis ? SC enoxaparin Time spent in the patient's overall evaluation,decision-making process, review of diagnostic data, adjustment of management, discussion with other providers, nursing nursing and ancillary staff involved in patient's care documentation, 52 Minutes Charges/Coding Visit Charges Inpatient E&M: 61109 [facility] Hosp L3
[2024-03-16] MEDS: Gabapentin 300 MG Capsule PO (08:26)
[2024-03-16] MEDS: Tolterodine Tartrate 2 MG CAP.SA PO (08:26)
[2024-03-16] MEDS: Pantoprazole Sodium 40 MG in 0.9% Normal Saline (100mL MB+) 100 ML 330 MG IV (08:28)
[2024-03-16] MEDS: Ceftriaxone 1 GM/50 ML BAG IV (09:47)
--- NOTE | 2024-03-16 10:42 | CASEMGMT ---
BROCK DODD Assessment Face to Face with patient for initial transition planning/care coordination assessment. RN CM introduced self and role at [facility], pt voices understanding. Pt is A&Ox4 and is resting comfortably in bed and is calm. Care providers, pharmacy, and demographics verified. Admitting dx: Rhabdomyolysis, UTI, N/V PCP: [facility] Specialists: Dr. López (Hot Box Operator), Dr. Sanjana Montanez (Neuro [facility]) Preferred Pharmacy: [facility] Insurance: Pt is currently self pay. Pt states that her is starting a new job on Friday. Pt states that an employee at [facility] came and talked to her about options. Pt states that her and her make too much money to qualify for MAGGIE. Pt was educated about COBRA. This RN CM made SW aware and SW to provide additional resources as warranted. Prescription Benefit: None at this time. Pt is aware of services like [facility]. Pt states that all of her Rx are currently filled. LNOK: Karl Faust (H), Krupa Lo (Daughter) Living Arrangements: Pt lives with her in a single story home with a BM with HR and 2 steps to enter ADLs/IADLs: Ind Transportation: Self, DME: BP and stethoscope. Walker but does not need to use. HHC/SNF: Denies history or needs Pt?s goal: Home no needs Plan: 6-click is 24. No therapy ordered. Pt denies the need for HHC or OP Therapy at this time. Pt wishes to return home once medically ready. Pt denies further questions or concerns at this time. CM to follow for safe DC from [facility]. Aj Souza RN, CM
--- NOTE | 2024-03-16 12:03 | CASEMGMT ---
Social Work Pt had insurance until mid February. SW spoke w/pt about COBRA and how COBRA works. She plans to pay the premiums retroactively so her hospital stay will be covered. SW encouraged pt, should she get any bills, to be sure to follow up w/the financial dept and give them her insurance information. Pt states understanding. YASMANY Archibald
[2024-03-16] MEDS: Acetaminophen 500 MG Tablet 1000 MG PO ×2 (13:27→20:48)
[2024-03-16] MEDS: oxyCODONE 5 MG Tablet 10 MG PO (13:27)
[2024-03-16] MEDS: DiphenhydrAMINE 25 MG Capsule PO (18:59)
[2024-03-16] MEDS: FLUoxetine 20 MG Capsule 60 MG PO (20:45)
[2024-03-16] MEDS: Pramipexole Di-HCl 0.25 MG Tablet PO (20:45)
[2024-03-16] MEDS: Gabapentin 600 MG Tablet PO (20:46)
[2024-03-16] MEDS: Loratadine 10 MG Tablet PO (20:46)
[2024-03-16] MEDS: Atorvastatin Calcium 20 MG Tablet PO (20:46)
[2024-03-17 02:33] VITALS: BP 103/67; PULSE 65; RESP 16; TEMP 36.5; O2SAT 95
[2024-03-17] MEDS: Methylphenidate HCl 5 MG Tablet 10 MG PO (06:21)
[2024-03-17] MEDS: Levothyroxine 50 MCG Tablet PO (06:21)
[2024-03-17] MEDS: Acetaminophen 500 MG Tablet 1000 MG PO (06:21)
[2024-03-17 06:24] LABS: Absolute Lymphocyte Count 1.24 X10^3/uL (0.83-4.51); Absolute Neutrophil Count 3.5 X10^3/uL (2.0-7.7); Basophil# 0.02 X10^3/uL; Basophil% 0.4 % (0-1); Eosinophil# 0.03 X10^3/uL; Eosinophils% 0.6 % (0-5); Hematocrit 33.4 % (37-47); Hemoglobin 10.3 g/dL (12.0-15.0); Lymphocyte # 1.24 X10^3/ul (0.83-4.51); Lymphocyte % 23.4 % (19-41); Mean Corp Hgb Conc 30.8 g/dL (32-36); Mean Corpuscular Hgb 30.1 pg (27.0-32.0); Mean Corpuscular Volume 97.7 fL (81-99); Mean Platelet Vol. 10.4 fl (6.2-12.0); Monocyte% 9.5 % (0-10); NRBC Flagged by Analyzer 0 % (0-5); Neutrophil # 3.45 X10^3/uL (2.7-7.7); Neutrophil % 65.2 % (47-70); Platelet Count 175 K/mm3 (150-450); RBC Distribution Width CV 13.6 % (11.6-14.6); RBC Distribution Width SD 48.7 fl (35.1-43.9); Red Blood Count 3.42 M/mm3 (4.2-5.4); White Blood Count 5.3 K/mm3 (4.4-11.0)
[2024-03-17] MEDS: Budesonide Respules 0.5 MG/2 ML AMPUL.NEB. INHALATION (07:20)
[2024-03-17] MEDS: Albuterol 2.5 MG/3 ML VIAL.NEB. INHALATION (07:20)
[2024-03-17 07:22] LABS: Anion Gap 2 (5-15); BUN 4 mg/dL (7-18); BUN/Creat Ratio 4.7 RATIO (10-20); CPK Total, Creatine Kinase 3614 U/L (26-192); Calcium,Total 7.6 mg/dL (8.5-10.1); Chloride 117 mmol/L (98-107); Creatinine, Serum 0.86 mg/dL (0.55-1.02); EST Glomerular Filtration Rate 74 mL/min (>60); Est Glom Filt Rate - Afr Amer 89 mL/min (>60); Estimated Creatinine Clearance 78.22 ml/min; Glucose 110 mg/dL (74-106); Magnesium 1.8 mg/dL (1.6-2.6); Phosphorus 3.6 mg/dL (2.5-4.9); Potassium 3.8 mmol/L (3.5-5.1); Sodium Level 145 mmol/L (136-145)
[2024-03-17] MEDS: 0.9% Normal Saline (1000mL) 1,000 ML 125 ML IV (07:23)
[2024-03-17 07:35] VITALS: PULSE 77; RESP 17
--- NOTE | 2024-03-17 07:48 | PCM.PN.HOSP ---
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 Plan is for patient to be discharged home with subsequent follow-up with her PCP Objective Data Objective Data Vital Signs: Vital Signs Temp Pulse Resp BP Pulse Ox O2 Del Method 97.7 F L 65 16 103/67 95 Room Air 03/17/24 02:33 03/17/24 02:33 03/17/24 02:33 03/17/24 02:33 03/17/24 02:03/17/24 02:33 Oxygen Delivery Method Room Air Weight: 78.245 kg Body Mass Index (BMI) 28.7 Intake & Output: Intake and Output for Last 24 Hours 03/15/24 03/16/24 03/17/24 23:59 23:59 23:59 Intake Total 2933.33 / 2933.33 4003.75 / 4223.75 1217.92 / 1217.92 Balance 2933.33 / 2933.33 4003.75 / 4223.75 1217.92 / 1217.92 Lab / Micro Data 03/17/24 05:45 03/17/24 05:45 Labs: Laboratory Results - last 24 hr 03/17/24 05:45: WBC 5.3, RBC 3.42 L, Hgb 10.3 L, Hct 33.4 L, MCV 97.7, MCH 30.1, MCHC 30.8 L, RDW Std Deviation 48.7 H, RDW Coeff of Stuart 13.6, Plt Count 175, MPV 10.4, Immature Gran % (Auto) 0.900, Neut % (Auto) 65.2, Lymph % (Auto) 23.4, [place] % (Auto) 9.5, Eos % (Auto) 0.6, Baso % (Auto) 0.4, Absolute Neuts (auto) 3.5, Absolute Lymphs (auto) 1.24, Nucleated RBC % 0, Sodium 145, Potassium 3.8, Chloride 117 H, Carbon Dioxide 26.0, Anion Gap 2 L, BUN 4 L, Creatinine 0.86, Estim Creat Clear Calc 78.22, Est GFR (MDRD) Af Amer 89, Est GFR (MDRD) Non-Af 74, BUN/Creatinine Ratio 4.7 L, Glucose 110 H, Calcium 7.6 L, Phosphorus 3.6, Magnesium 1.8, Total Creatine Kinase 3614 H Physical Exam Narrative GENERAL: cooperative HEENT: Atraumatic; normocephalic EYES; Anicteric, Normal Conjunctiva NECK; supple, normal thyroid, RESPIRATORY: Diminished to auscultation CARDIOVASCULAR: Regular S1 S2, GI: soft, normoactive bowel sounds, : No Renal angle tenderness; EXTREMITIES: No edema, no clubbing, MUSCULOSKELETAL: no muscle wasting NEURO: Awake; no lateralizing signs. SKIN: No Rash PSYCH; Flat affect Assessment & Plan Assessment/Plan (1) Rhabdomyolysis: QUALIFIERS: Rhabdomyolysis type: non-traumatic Qualified Code(s): M62.82 - Rhabdomyolysis PLAN: Plan Patient is a 53-year-old female who presented with abdominal pain with associated nausea and vomiting. She suspected she had rhabdo myelitis is given recent extension where she went inhale for 7 hours CPK on admission was 3121. 1. Acute rhabdomyolysis ? CK on admission was 3121. Admitted to regular nursing floor managed with hydration with subsequent monitoring of CPK levels ordered 2. Acute cystitis without hematuria ? Patient started on ceftriaxone cultures sent 3. Hypertension - Blood pressure controlled, home medications continued with dose adjustment as needed 4. Dyslipidemia -Patient is on statin therapy, continued at home dose 5. Hypothyroidism - Patient is on levothyroxine home dose continued 6. Rheumatoid arthritis ? Patient is on hydroxychloroquine as well as abatacept 7. Mild intermittent asthma ? 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 ADD ? Patient is on Reglan 10. Restless leg syndrome ? Patient is on Requip 11. GERD ? Patient is on PPI 12. Depression ? Patient is on SSRI home dose continue next 13. DVT prophylaxis ? SC enoxaparin Time spent in the patient's overall evaluation,decision-making process, review of diagnostic data, adjustment of management, discussion with other providers, nursing nursing and ancillary staff involved in patient's care documentation, 35 Minutes Charges/Coding Visit Charges Inpatient E&M: 93072 Subs Hosp L2
[2024-03-17] MEDS: oxyCODONE 5 MG Tablet 10 MG PO (08:02)
[2024-03-17] MEDS: DiphenhydrAMINE 25 MG Capsule PO (08:02)
[2024-03-17] MEDS: Multivitamins,Therapeutic Tablet 1 TABLET PO (08:03)
[2024-03-17] MEDS: Potassium Chloride Oral Tablet 20 MEQ PO (08:03)
[2024-03-17] MEDS: predniSONE 5 MG Tablet PO (08:03)
[2024-03-17 08:23] VITALS: O2SAT 95
--- NOTE | 2024-03-17 08:32 | DS.PCM_ITS ---
Providers Date of Admission: 03/15/24 Date of Discharge: 03/17/24 Primary Care Physician: Dr. Rosalinda Garrett, DO Reason For Visit: RHABDOMYOLYSIS, UTI ANS INTRACTABLE N/V Diagnosis Discharge Diagnosis (1) Rhabdomyolysis: Status: Acute Code(s): M62.82 - Rhabdomyolysis Qualifiers: Rhabdomyolysis type: non-traumatic Qualified Code(s): M62.82 - Rhabdomyolysis Plan Patient is a 53-year-old female who presented with abdominal pain with associated nausea and vomiting. She suspected she had rhabdo myelitis is given recent extension where she went inhale for 7 hours CPK on admission was 3121. 1. Acute rhabdomyolysis ? CK on admission was 3121. Admitted to regular nursing floor managed with hydration with subsequent monitoring of CPK levels ordered ? Patient symptoms remarkably improved. Patient was discharged home with hydration encouraged 2. Acute cystitis without hematuria ? Patient started on ceftriaxone cultures sent ? Patient urine cultures came back positive for mixed organisms antibiotics discontinued 3. Hypertension - Blood pressure controlled, home medications continued with dose adjustment as needed 4. Dyslipidemia -Patient is on statin therapy, continued at home dose 5. Hypothyroidism - Patient is on levothyroxine home dose continued 6. Rheumatoid arthritis ? Patient is on hydroxychloroquine as well as abatacept 7. Mild intermittent asthma ? 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 ADD ? Patient is on Reglan 10. Restless leg syndrome ? Patient is on Requip 11. GERD ? Patient is on PPI 12. Depression ? Patient is on SSRI home dose continue next 13. DVT prophylaxis ? SC enoxaparin Time spent in the patient's overall evaluation,decision-making process, review of diagnostic data, adjustment of management, discussion with other providers, nursing nursing and ancillary staff involved in patient's care documentation, 35 Minutes Medications at Discharge Home Medications fluticasone 100 mcg-salmeterol 50 mcg/dose blistr powdr for inhalation (Advair Diskus) 1 puff inhalation DAILY BREATHING 02/22/16 gabapentin 300 mg capsule 600 mg PO QHS NERVE PAIN 02/22/16 hydroxychloroquine 200 mg tablet 300 mg PO DAILY arthritis 02/22/16 loratadine 10 mg tablet (Allergy Relief (loratadine)) 10 mg PO QHS ALLERGIES 02/22/16 methylphenidate HCl 10 mg tablet (Ritalin) 10 mg PO BID ADD 02/22/16 fremanezumab-vfrm 225 mg/1.5 mL subcutaneous auto-injector (Ajovy) 225 mg subcut QMONTH migraines 10/12/21 gabapentin 300 mg capsule 300 mg PO DAILY NERVE PAIN 10/12/21 lisinopril 20 mg tablet 20 mg PO DAILY BLOOD PRESSURE 10/12/21 potassium chloride 20 mEq tablet,extended release(part/cryst) (Klor-Con M) 20 meq PO MOWEFR supplement 10/12/21 montelukast 10 mg tablet 10 mg PO DAILY allergies 05/08/23 prednisone 5 mg tablet 5 mg PO DAILY inflammation 05/08/23 ropinirole 0.5 mg tablet 0.5 mg PO QHS restless legs 05/08/23 solifenacin 5 mg tablet 5 mg PO DAILY 05/08/23 abatacept 125 mg/mL subcutaneous syringe (Orencia) 125 mg subcut TU arthritis 06/18/23 amlodipine 5 mg tablet 5 mg PO DAILY 06/18/23 fluoxetine 20 mg capsule (Prozac) 60 mg PO QHS DEPRESSION 06/18/23 levothyroxine 50 mcg tablet 50 mcg PO DAILY THYROID 06/18/23 trazodone 50 mg tablet 50 mg PO QHS PRN sleep 06/18/23 multivitamin (Daily Multi-Vitamin tablet) 1 tab PO DAILY 03/15/24 omeprazole 40 mg capsule,delayed release 40 mg PO DAILY 03/15/24 rizatriptan 10 mg tablet 10 mg PO Q2H PRN migraine headache 03/15/24 rosuvastatin 10 mg tablet 10 mg PO QHS 03/15/24 tramadol 50 mg tablet 50 mg PO TID PRN PRN severe pain 03/15/24 diphenhydramine HCl 25 mg capsule (Banophen) 25 mg PO Q4H PRN PRN Itching #20 caps 03/17/24 oxycodone 5 mg tablet 5 mg PO Q4H PRN PRN Pain Score 4-10 5 days #20 tabs 03/17/24 Physical Exam Narrative GENERAL: cooperative HEENT: Atraumatic; normocephalic EYES; Anicteric, Normal Conjunctiva NECK; supple, normal thyroid, RESPIRATORY: Diminished to auscultation CARDIOVASCULAR: Regular S1 S2, GI: soft, normoactive bowel sounds, : No Renal angle tenderness; EXTREMITIES: No edema, no clubbing, MUSCULOSKELETAL: no muscle wasting NEURO: Awake; no lateralizing signs. SKIN: No Rash PSYCH; Flat affect Weight / BMI Weight Weight: 78.245 kg Body Mass Index (BMI) 28.7 ABG / Lab / Microbiology Data 03/17/24 05:45 03/17/24 05:45 Laboratory: Laboratory Results - last 24 hr 03/17/24 05:45: WBC 5.3, RBC 3.42 L, Hgb 10.3 L, Hct 33.4 L, MCV 97.7, MCH 30.1, MCHC 30.8 L, RDW Std Deviation 48.7 H, RDW Coeff of Stuart 13.6, Plt Count 175, MPV 10.4, Immature Gran % (Auto) 0.900, Neut % (Auto) 65.2, Lymph % (Auto) 23.4, [place] % (Auto) 9.5, Eos % (Auto) 0.6, Baso % (Auto) 0.4, Absolute Neuts (auto) 3.5, Absolute Lymphs (auto) 1.24, Nucleated RBC % 0, Sodium 145, Potassium 3.8, Chloride 117 H, Carbon Dioxide 26.0, Anion Gap 2 L, BUN 4 L, Creatinine 0.86, Estim Creat Clear Calc 78.22, Est GFR (MDRD) Af Amer 89, Est GFR (MDRD) Non-Af 74, BUN/Creatinine Ratio 4.7 L, Glucose 110 H, Calcium 7.6 L, Phosphorus 3.6, Magnesium 1.8, Total Creatine Kinase 3614 H D/C Instructions Discharge Diet: No restrictions and - (Patient to keep hydrated as much as possible) Discharge Activity: Return to Normal Activity Call your doctor if you observe: Fever of 101 or Higher, Shortness of breath, Fainting spells and Chest pain Meaningful Use Info Meaningful Use Meaningful Use Diagnoses (Choose all that apply): None applicable Ischemic Stroke Statin Dosing Therapy Reference: STATIN DOSE THERAPY REFERENCE: * Patients > 75 years receive moderate or high dose statin therapy. * Patients 75 years or YOUNGER should receive HIGH intensity statin dose unless contraindicated. You will be required to document reason for non-treatment if statin daily dose does not meet guidelines. HIGH DOSE STATIN THERAPY DAILY Atorvastatin > than or = to 40 mg Rosuvastatin > than or = to 20 mg Amlodipine + Atorvastatin > than or = to 2.5/40 mg Ezetimibe + Simvastatin 10/80 mg Simvastatin 80mg Discharge Plan Admission Admit Date/Time: 03/15/24 14:01 Attending Provider: Jhoan Yee Primary Care Provider: Rosalinda Garrett Consulting Providers: Jhoan Britt Discharge Orders/Prescriptions Prescriptions: New oxycodone 5 mg Tablet 5 mg PO Q4H PRN PRN (Reason: Pain Score 4-10) 5 Days Qty: 20 0RF diphenhydramine HCl [Banophen] 25 mg Capsule 25 mg PO Q4H PRN PRN (Reason: Itching) Qty: 20 0RF Continued amlodipine 5 mg tablet 5 mg PO DAILY methylphenidate HCl [Ritalin] 10 MG tablet 10 mg PO BID gabapentin 300 MG capsule 600 mg PO QHS hydroxychloroquine 200 MG tablet 300 mg PO DAILY fluticasone propion-salmeterol [Advair Diskus] 1 PUFF inhaler 1 puff inhalation DAILY loratadine [Allergy Relief (loratadine)] 10 MG tablet 10 mg PO QHS levothyroxine 50 mcg tablet 50 mcg PO DAILY gabapentin 300 mg capsule 300 mg PO DAILY lisinopril 20 mg Tablet 20 mg PO DAILY potassium chloride [Klor-Con M20] 20 mEq Tablet,Er Particles/Crystals 20 meq PO MOWEFR Ajovy Autoinjector 225 mg/1.5 mL Auto-Injector 225 mg SUBCUT QMONTH Rx Instructions: each Orencia 125 mg/mL syringe 125 mg SUBCUT TU fluoxetine [Prozac] 20 mg capsule 60 mg PO QHS prednisone 5 mg tablet 5 mg PO DAILY ropinirole 0.5 mg tablet 0.5 mg PO QHS Patient Comments: 1/2 TO 1 TAB AT BEDTIME montelukast 10 mg tablet 10 mg PO DAILY solifenacin 5 mg tablet 5 mg PO DAILY trazodone 50 mg tablet 50 mg PO QHS PRN (Reason: sleep) Patient Comments: TAKE 1 TABLET BY MOUTH AT BEDTIME multivitamin [Daily Multi-Vitamin] Tablet 1 tab PO DAILY rizatriptan 10 mg tablet 10 mg PO Q2H PRN (Reason: migraine headache) omeprazole 40 mg capsule,delayed release(DR/EC) 40 mg PO DAILY tramadol 50 mg tablet 50 mg PO TID PRN PRN (Reason: severe pain) rosuvastatin 10 mg tablet 10 mg PO QHS Discontinued furosemide 20 MG tablet 10 mg PO MOWEFR Referrals / Follow Up: Rosalinda Garrett DO [Primary Care Provider] - In 1 Week Disposition Disposition (needs filled in before D/C Order can be placed): Home, Self Care Charges/Coding Visit Charges Inpatient E&M: 53493 Disch Hosp >30min
[2024-03-17 08:33] VITALS: BP 125/63; PULSE 83; RESP 18; TEMP 36.7; O2SAT 95
[2024-03-17] MEDS: Ceftriaxone 1 GM/50 ML BAG IV (08:57)
[2024-03-17] MEDS: Gabapentin 300 MG Capsule PO (08:58)
[2024-03-17] MEDS: amLODIPine 5 MG Tablet PO (08:59)
[2024-03-17] MEDS: Montelukast 10 MG Tablet PO (08:59)
[2024-03-17] MEDS: Hydroxychloroquine 200 MG Tablet 300 MG PO (08:59)
[2024-03-17] MEDS: Tolterodine Tartrate 2 MG CAP.SA PO (09:00)
--- NOTE | 2024-03-17 09:45 | CASEMGMT ---
RN CM NOTE: Discharge order is in. RN CM to room. Introduced self and role. Pt denies having any discharge concerns/needs. Ninoska LUDWIGN RN CM
--- NOTE | 2024-03-17 10:47 | PHA.DC.MR.R ---
Pharmacy [facility] Med Reconciliation Pharmacy Service has performed discharge medication reconciliation for this patient. Medication education papers prepared, patient discharged when counseling was attempted. The patient's discharge medication list was reviewed for discrepancies and discrepancies were resolved. Medications at Discharge Home Medications fluticasone 100 mcg-salmeterol 50 mcg/dose blistr powdr for inhalation (Advair Diskus) 1 puff inhalation DAILY BREATHING 02/22/16 gabapentin 300 mg capsule 600 mg PO QHS NERVE PAIN 02/22/16 hydroxychloroquine 200 mg tablet 300 mg PO DAILY arthritis 02/22/16 loratadine 10 mg tablet (Allergy Relief (loratadine)) 10 mg PO QHS ALLERGIES 02/22/16 methylphenidate HCl 10 mg tablet (Ritalin) 10 mg PO BID ADD 02/22/16 fremanezumab-vfrm 225 mg/1.5 mL subcutaneous auto-injector (Ajovy) 225 mg subcut QMONTH migraines 10/12/21 gabapentin 300 mg capsule 300 mg PO DAILY NERVE PAIN 10/12/21 lisinopril 20 mg tablet 20 mg PO DAILY BLOOD PRESSURE 10/12/21 potassium chloride 20 mEq tablet,extended release(part/cryst) (Klor-Con M) 20 meq PO MOWEFR supplement 10/12/21 montelukast 10 mg tablet 10 mg PO DAILY allergies 05/08/23 prednisone 5 mg tablet 5 mg PO DAILY inflammation 05/08/23 ropinirole 0.5 mg tablet 0.5 mg PO QHS restless legs 05/08/23 solifenacin 5 mg tablet 5 mg PO DAILY 05/08/23 abatacept 125 mg/mL subcutaneous syringe (Orencia) 125 mg subcut TU arthritis 06/18/23 amlodipine 5 mg tablet 5 mg PO DAILY 06/18/23 fluoxetine 20 mg capsule (Prozac) 60 mg PO QHS DEPRESSION 06/18/23 levothyroxine 50 mcg tablet 50 mcg PO DAILY THYROID 06/18/23 trazodone 50 mg tablet 50 mg PO QHS PRN sleep 06/18/23 multivitamin (Daily Multi-Vitamin tablet) 1 tab PO DAILY 03/15/24 omeprazole 40 mg capsule,delayed release 40 mg PO DAILY 03/15/24 rizatriptan 10 mg tablet 10 mg PO Q2H PRN migraine headache 03/15/24 rosuvastatin 10 mg tablet 10 mg PO QHS 03/15/24 tramadol 50 mg tablet 50 mg PO TID PRN PRN severe pain 03/15/24 diphenhydramine HCl 25 mg capsule (Banophen) 25 mg PO Q4H PRN PRN Itching #20 caps 03/17/24 oxycodone 5 mg tablet 5 mg PO Q4H PRN PRN Pain Score 4-10 5 days #20 tabs 03/17/24
== END 2024-03-17 10:08 | disposition home or self-care (01) | DRG 558 ==
LOC: ED 11:19 → MS3 14:00
PROVIDERS: Admitting Provider Internal Medicine; Emergency Provider Emergency Medicine; PCP Internal Medicine; Visit Provider Internal Medicine
DX: M62.82 Rhabdomyolysis (principal); E27.40 Unspecified adrenocortical insufficiency; E88.40 Mitochondrial metabolism disorder, unspecified; N30.00 Acute cystitis without hematuria; M06.9 Rheumatoid arthritis, unspecified; I10 Essential (primary) hypertension; E03.9 Hypothyroidism, unspecified; J45.20 Mild intermittent asthma, uncomplicated; G25.81 Restless legs syndrome; F32.A Depression, unspecified; K21.9 Gastro-esophageal reflux disease without esophagitis; T73.3XXA Exhaustion due to excessive exertion, initial encounter; G43.909 Migraine, unspecified, not intractable, without status migrainosus; E78.5 Hyperlipidemia, unspecified; E86.0 Dehydration; E66.9 Obesity, unspecified; Z79.52 Long term (current) use of systemic steroids; G89.29 Other chronic pain; Z79.51 Long term (current) use of inhaled steroids; Z68.31 Body mass index [BMI] 31.0-31.9, adult; F98.8 Other specified behavioral and emotional disorders with onset usually occurring in childhood and adolescence
CPT/HCPCS: 36415; 80048; 80053; 80076; 81001; 82550; 83690; 83735; 84100; 85025; 94640; 99284; J7030; A4216; J2405

== ENCOUNTER → 2024-04-20 | Outpatient (CLI) | payer BC, SELFPAY ==
[2024-04-20 18:02] LABS: Absolute Lymphocyte Count 0.72 X10^3/uL (0.83-4.51); Absolute Neutrophil Count 5.1 X10^3/uL (2.0-7.7); Basophil# 0.02 X10^3/uL; Basophil% 0.3 % (0-1); Eosinophil# 0.01 X10^3/uL; Eosinophils% 0.2 % (0-5); Hematocrit 38.5 % (37-47); Hemoglobin 12.2 g/dL (12.0-15.0); Lymphocyte # 0.72 X10^3/ul (0.83-4.51); Lymphocyte % 11.3 % (19-41); Mean Corp Hgb Conc 31.7 g/dL (32-36); Mean Corpuscular Hgb 29.8 pg (27.0-32.0); Mean Corpuscular Volume 94.1 fL (81-99); Mean Platelet Vol. 10.4 fl (6.2-12.0); Monocyte# 0.46 X10^3/uL; Monocyte% 7.2 % (0-10); NRBC Flagged by Analyzer 0 % (0-5); Neutrophil # 5.14 X10^3/uL (2.7-7.7); Neutrophil % 80.4 % (47-70); Platelet Count 308 K/mm3 (150-450); RBC Distribution Width CV 13.1 % (11.6-14.6); RBC Distribution Width SD 45.3 fl (35.1-43.9); Red Blood Count 4.09 M/mm3 (4.2-5.4); White Blood Count 6.4 K/mm3 (4.4-11.0)
[2024-04-20 18:46] LABS: ALB/GLOB Ratio 1.2 RATIO (0.9-2.4); AST(SGOT) 22 U/L (15-37); Alanine Aminotransfer ALT/SGPT 24 U/L (13-56); Albumin, Serum 3.8 g/dL (3.2-5.0); Alkaline Phosphatase 66 U/L (45-117); Anion Gap 7 (5-15); BUN 16 mg/dL (7-18); BUN/Creat Ratio 12.6 RATIO (10-20); CPK Total, Creatine Kinase 125 U/L (26-192); Calcium,Total 9.2 mg/dL (8.5-10.1); Chloride 102 mmol/L (98-107); Creatinine, Serum 1.27 mg/dL (0.55-1.02); EST Glomerular Filtration Rate 47 mL/min (>60); Est Glom Filt Rate - Afr Amer 57 mL/min (>60); Globulin 3.1 g/dL (2.2-4.2); Glucose 91 mg/dL (74-106); Potassium 4.1 mmol/L (3.5-5.1); Protein, Total 6.9 g/dL (6.4-8.2); Sodium Level 135 mmol/L (136-145)
[2024-04-22 13:08] LABS: Aldolase 4.7 U/L (3.3-10.3)
== END | disposition home or self-care (01) ==
LOC: MTLAB 15:17
PROVIDERS: PCP Internal Medicine; Referring Provider Internal Medicine Rheumatology; Visit Provider Internal Medicine Rheumatology
DX: M06.00 Rheumatoid arthritis without rheumatoid factor, unspecified site (principal); M79.7 Fibromyalgia; Z79.899 Other long term (current) drug therapy
CPT/HCPCS: 36415; 80053; 82085; 82550; 85025

== ENCOUNTER 2024-06-12 10:38 | Emergency (ER) | payer BC, SELFPAY ==
[2024-06-12 10:38] VITALS: BP 138/70; PULSE 92; RESP 14; TEMP 36.6; O2SAT 100; BMI 30.6
--- NOTE | 2024-06-12 11:02 | CT_ITS ---
STUDY: CT ABDOMEN AND PELVIS WITH CONTRAST REASON FOR EXAM: Female, 53 years old. Pain. RADIATION DOSAGE (If Supplied By Facility): CTDIvol = ( 17 ) mGy, DLP = ( 852 ) mGycm TECHNIQUE: Transaxial images were obtained through the abdomen and pelvis without oral contrast. 100 ml of Isovue-370 contrast was administered. Sagittal and coronal images were reconstructed. Individualized dose optimization techniques were used for this CT. COMPARISON: No relevant prior comparison study available FINDINGS: LOWER THORAX: The visualized lung bases are clear. The visualized portions of the heart and pericardium are within normal limits. GALLBLADDER / BILE DUCTS: There are no calcified gallstones present. There is no intrahepatic biliary duct dilatation. The common bile duct is normal in caliber. There are no calcified ductal stones. LIVER: The liver is within normal limits. There are no suspicious hepatic lesions. SPLEEN: The spleen is normal in size. PANCREAS: The pancreas is within normal limits. ADRENAL GLANDS: The adrenal glands are within normal limits. KIDNEYS / BLADDER: There are no renal or ureteral stones. There is no hydronephrosis. There are no focal renal lesions. The urinary bladder is partially distended and appears grossly unremarkable. STOMACH / BOWEL: Normal visualized stomach. There is no bowel obstruction or inflammation. The appendix is visualized and appears normal. PERITONEUM/RETROPERITONEUM: There is no abdominal or pelvic free air, free fluid or fluid collection. There is no abnormal soft tissue mass identified. There is no abdominal or pelvic lymphadenopathy. VESSELS: The aorta is normal in caliber. The IVC is unremarkable. BONES: There are postsurgical changes from posterior fusion of L3/L4 with associated laminectomies. There are no destructive osseous lesions. SOFT TISSUES: The visualized soft tissues are within normal limits. CT/Abdomen/Pelvis W IV Cont ONLY IMPRESSION: No acute abdominal or pelvic pathology. Electronically Signed: Nikita Dawn MD at 12:42 EDT ,
--- NOTE | 2024-06-12 11:05 | ED.VIS.GI ---
HPI HPI - GI History of Present Illness Chief Complaint: Abd Pain Narrative Narrative: 53-year-old female recently admitted a few months ago for rhabdomyolysis, presents with diarrhea that she has had for weeks. She states that with her diarrhea, it usually loose stool in the morning then become progressively watery throughout the day. She denies any fevers or chills. On occasion she had nausea and may be vomited once over the last few weeks except for yesterday when her diarrhea had ceased, and she was vomiting. She denies any blood in her stool or in her emesis. Past surgical history includes hysterectomy. She states that on , 2 days ago, she dropped off stool samples to her primary care provider who is aware of the problems with diarrhea that she has been having. She feels lightheaded and weak. Past medical history does also rheumatoid arthritis and autoimmune disease, mitochondrial disease as well. [facility] Medical History Anemia Anxiety Chronic pain Osteoporosis Kidney stones GERD (gastroesophageal reflux disease) Non-smoker Kidney disease Secondary adrenal insufficiency Chronic steroid use Hyperlipidemia Hypertension Migraine Hypothyroid Mitochondrial disease History of hyperlipidemia History of essential hypertension Home Medications ?Medication ?Instructions ?Recorded ?Last Taken ?Type fluticasone 100 mcg-salmeterol 50 1 puff inhalation DAILY BREATHING 02/22/16 03/14/24 History mcg/dose blistr powdr for inhalation (Advair Diskus) gabapentin 300 mg capsule 600 mg PO QHS NERVE PAIN 02/22/16 03/14/24 History hydroxychloroquine 200 mg tablet 300 mg PO DAILY arthritis 02/22/16 03/14/24 History loratadine 10 mg tablet (Allergy 10 mg PO QHS ALLERGIES 02/22/16 03/14/24 History Relief (loratadine)) methylphenidate HCl 10 mg tablet 10 mg PO BID ADD 02/22/16 03/14/24 History (Ritalin) fremanezumab-vfrm 225 mg/1.5 mL 225 mg subcut QMONTH migraines 10/12/21 Unknown History subcutaneous auto-injector (Ajovy) gabapentin 300 mg capsule 300 mg PO DAILY NERVE PAIN 10/12/21 03/14/24 History lisinopril 20 mg tablet 20 mg PO DAILY BLOOD PRESSURE 10/12/21 03/14/24 History potassium chloride 20 mEq 20 meq PO MOWEFR supplement 10/12/21 03/12/24 History tablet,extended release(part/cryst) (Mikaela-Con M) montelukast 10 mg tablet 10 mg PO DAILY allergies 05/08/23 03/14/24 History prednisone 5 mg tablet 5 mg PO DAILY inflammation 05/08/23 03/14/24 History ropinirole 0.5 mg tablet 0.5 mg PO QHS restless legs 05/08/23 03/14/24 History solifenacin 5 mg tablet 5 mg PO DAILY 05/08/23 03/14/24 History abatacept 125 mg/mL subcutaneous 125 mg subcut TU arthritis 06/18/23 03/09/24 History syringe (Orencia) amlodipine 5 mg tablet 5 mg PO DAILY 06/18/23 03/14/24 History fluoxetine 20 mg capsule (Prozac) 60 mg PO QHS DEPRESSION 06/18/23 03/14/24 History levothyroxine 50 mcg tablet 50 mcg PO DAILY THYROID 06/18/23 03/14/24 History trazodone 50 mg tablet 50 mg PO QHS PRN sleep 06/18/23 03/14/24 History multivitamin (Daily Multi-Vitamin 1 tab PO DAILY 03/15/24 03/14/24 History tablet) omeprazole 40 mg capsule,delayed 40 mg PO DAILY 03/15/24 03/14/24 History release rizatriptan 10 mg tablet 10 mg PO Q2H PRN migraine headache 03/15/24 Unknown History rosuvastatin 10 mg tablet 10 mg PO QHS 03/15/24 03/14/24 History tramadol 50 mg tablet 50 mg PO TID PRN PRN severe pain 03/15/24 03/14/24 History diphenhydramine HCl 25 mg capsule 25 mg PO Q4H PRN PRN Itching #20 03/17/24 Unknown Rx (Banophen) caps oxycodone 5 mg tablet 5 mg PO Q4H PRN PRN Pain Score 03/17/24 Unknown Rx 4-10 5 days #20 tabs Allergy/AdvReac Type Severity Reaction Status Date / Time adhesive tape AdvReac Severe Rash Verified 06/12/24 10:39 hydromorphone HCl (From AdvReac Itching Verified 06/12/24 10:39 Dilaudid) Family History Mother Heart disease Hypertension Cancer Lung, Bladder Father Hypertension Diabetes Brother Diabetes Hypertension Kidney disease Uncle Graves disease Aunt Graves disease Other Myocardial infarction Surgical History History of spinal fusion Hx of laminectomy H/O section Social History Smoking Status: Never smoker ROS ROS ED ROS Narrative Constitutional: No fever, no chills. HEENT: No sore throat. No neck pain. No loss of vision. No rhinorrhea. Cardiovascular: No chest pain. No palpitations. No pedal edema. Respiratory: No cough, no shortness of breath. Abdominal: No abdominal pain. Intermittent nausea and vomiting, positive diarrhea times weeks. Genitourinary: No dysuria. No hematuria. Musculoskeletal: No myalgias. No arthralgias. Neurologic: No headaches. No dizziness. No lightheadedness. Skin: No rash. No change in color. Psychiatric: No depression. No anxiety. EXAM Physical Exam Narrative Exam Narrative: Afebrile. Vital signs noted. HEENT: Normocephalic. Atraumatic. PERRL, EOMI. Neck soft and supple. No point tenderness or step off. Cardiovascular: Regular rate and rhythm. No murmurs, rubs, or gallops appreciated. Respiratory: No tachypnea. Lungs clear to auscultation bilaterally. Gastrointestinal: Abdomen soft, nontender, with normoactive bowel sounds. No rebound or guarding. Neurological: Awake. Alert. Nonfocal, nonlateralizing. Skin: No rash. Normal color. No pallor. Musculoskeletal: No pedal edema. Full range of motion extremities. Const Vital Signs: 06/12/24 10:38 Temperature 98 F Temperature Source Temporal Pulse Rate 92 Respiratory Rate 14 Blood Pressure 138/70 H Blood Pressure Mean 92 Pulse Ox 100 MDM MDM MDM Narrative Medical decision making narrative: In the differential diagnosis would be irritable bowel syndrome versus diverticulitis versus enteritis/gastroenteritis. I have low suspicion for bowel obstruction. C. difficile colitis would also be in the differential, but her antibiotics was a small amount and was a few months ago. I reviewed her laboratory work, her stool studies have not returned from as of yet. On review of her white count is normal at 7.8 with hemoglobin 14.0, platelet count normal at 311. BUN is normal at 11 with creatinine 1.52, but she does have history of chronic kidney disease with elevated creatinines of 1.3 and 1.2 when compared to prior laboratories. Electrolyte panel shows evidence of dehydration otherwise with normal sodium of 138 and potassium 3.6 with chloride 105. Glucose appropriately elevated at 98. Lipase normal at 26 so I doubt pancreatitis. Additionally, I reviewed the radiology report of the CT of the abdomen pelvis which shows no evidence of an acute process, no bowel obstruction, no colitis. At this point in time, she states she had an episode of diarrhea here in the emergency department. As this has been ongoing for weeks, I am unsure as to the cause of her loose stool and diarrhea but I feel she can be discharged to follow-up with her primary care provider. I also referred her to gastroenterology as there also is the possibility that this may be irritable bowel syndrome. Return instructions were reviewed. Disposition is discharged home in stable condition. History & Record Review Discussion w/independent historian: Patient Additional record(s) reviewed:: Prior labs Lab Data Attestation: I reviewed the patient's lab results. Labs: Laboratory Results - last 24 hr 06/12/24 06/12/24 10:58 12:00 WBC 7.8 RBC 4.67 Hgb 14.0 Hct 42.4 MCV 90.8 MCH 30.0 MCHC 33.0 RDW Std Deviation 43.5 RDW Coeff of Stuart 13.3 Plt Count 311 MPV 9.2 Immature Gran % (Auto) 0.400 Neut % (Auto) 77.3 H Lymph % (Auto) 9.4 L [place] % (Auto) 12.1 H Eos % (Auto) 0.3 Baso % (Auto) 0.5 Absolute Neuts (auto) 6.1 Absolute Lymphs (auto) 0.74 L Nucleated RBC % 0 Sodium 138 Potassium 3.6 Chloride 105 Carbon Dioxide 31.0 Anion Gap 2 L BUN 11 Creatinine 1.52 H Estim Creat Clear Calc 44.07 Est GFR (MDRD) Af Amer 46 L Est GFR (MDRD) Non-Af 38 L BUN/Creatinine Ratio 7.2 L Glucose 98 Calcium 9.0 Total Bilirubin 0.50 AST 21 ALT 31 Alkaline Phosphatase 81 Total Protein 6.8 Albumin 3.4 Globulin 3.4 Albumin/Globulin Ratio 1.0 Lipase 26 Urine Color Yellow Urine Clarity Clear Urine pH 7.0 Ur Specific Blue 1.005 Urine Protein 15 H Urine Glucose (UA) Normal Urine Ketones Negative Urine Occult Blood 10 H Urine Nitrite Negative Urine Bilirubin Negative Urine Urobilinogen Normal Ur Leukocyte Esterase 100 H Urine RBC 0 SEEN Urine WBC 0-5 SEEN Ur Squamous Epith Cells 0 SEEN Urine Bacteria 0 SEEN Urine Mucus 0 SEEN Radiography Diagnostic Testing: Clinical Impression(s) from Imaging Studies Abdomen/Pelvis CT 06/12/24 11:02 IMPRESSION: No acute abdominal or pelvic pathology. Electronically Signed: Nikita Dawn MD at 12:42 EDT , Discharge Plan Triage Chief Complaint: Abd Pain ED Provider: Nir Henderson Dx/Rx/DC Orders Clinical Impression: Diarrhea, Weakness Instructions: ED Diarrhea, Unknown Cause Prescriptions: No Action amlodipine 5 mg tablet 5 mg PO DAILY methylphenidate HCl [Ritalin] 10 MG tablet 10 mg PO BID gabapentin 300 MG capsule 600 mg PO QHS hydroxychloroquine 200 MG tablet 300 mg PO DAILY fluticasone propion-salmeterol [Advair Diskus] 1 PUFF inhaler 1 puff inhalation DAILY loratadine [Allergy Relief (loratadine)] 10 MG tablet 10 mg PO QHS levothyroxine 50 mcg tablet 50 mcg PO DAILY gabapentin 300 mg capsule 300 mg PO DAILY lisinopril 20 mg Tablet 20 mg PO DAILY potassium chloride [Klor-Con M20] 20 mEq Tablet,Er Particles/Crystals 20 meq PO MOWEFR Ajovy Autoinjector 225 mg/1.5 mL Auto-Injector 225 mg SUBCUT QMONTH Rx Instructions: each Orencia 125 mg/mL syringe 125 mg SUBCUT TU fluoxetine [Prozac] 20 mg capsule 60 mg PO QHS prednisone 5 mg tablet 5 mg PO DAILY ropinirole 0.5 mg tablet 0.5 mg PO QHS Patient Comments: 1/2 TO 1 TAB AT BEDTIME montelukast 10 mg tablet 10 mg PO DAILY solifenacin 5 mg tablet 5 mg PO DAILY trazodone 50 mg tablet 50 mg PO QHS PRN (Reason: sleep) Patient Comments: TAKE 1 TABLET BY MOUTH AT BEDTIME multivitamin [Daily Multi-Vitamin] Tablet 1 tab PO DAILY rizatriptan 10 mg tablet 10 mg PO Q2H PRN (Reason: migraine headache) omeprazole 40 mg capsule,delayed release(DR/EC) 40 mg PO DAILY tramadol 50 mg tablet 50 mg PO TID PRN PRN (Reason: severe pain) rosuvastatin 10 mg tablet 10 mg PO QHS oxycodone 5 mg Tablet 5 mg PO Q4H PRN PRN (Reason: Pain Score 4-10) 5 Days Qty: 20 0RF diphenhydramine HCl [Banophen] 25 mg Capsule 25 mg PO Q4H PRN PRN (Reason: Itching) Qty: 20 0RF Primary Care Provider: Rosalinda Garrett Referrals: Rosalinda Garrett DO [Primary Care Provider] - 3-5 Days if not improving Katherine,DO Robert [Med Staff - Active Staff] - As soon as possible Print Language: Indonesian Disposition Disposition: Home, Self Care
[2024-06-12] MEDS: 0.9% Normal Saline (1000mL) 1,000 ML 999 ML IV (11:08)
[2024-06-12 11:11] LABS: Absolute Lymphocyte Count 0.74 X10^3/uL (0.83-4.51); Absolute Neutrophil Count 6.1 X10^3/uL (2.0-7.7); Basophil# 0.04 X10^3/uL; Basophil% 0.5 % (0-1); Eosinophil# 0.02 X10^3/uL; Eosinophils% 0.3 % (0-5); Hematocrit 42.4 % (37-47); Lymphocyte # 0.74 X10^3/ul (0.83-4.51); Lymphocyte % 9.4 % (19-41); Mean Corpuscular Volume 90.8 fL (81-99); Mean Platelet Vol. 9.2 fl (6.2-12.0); Monocyte# 0.95 X10^3/uL; Monocyte% 12.1 % (0-10); NRBC Flagged by Analyzer 0 % (0-5); Neutrophil # 6.06 X10^3/uL (2.7-7.7); Neutrophil % 77.3 % (47-70); Platelet Count 311 K/mm3 (150-450); RBC Distribution Width CV 13.3 % (11.6-14.6); RBC Distribution Width SD 43.5 fl (35.1-43.9); Red Blood Count 4.67 M/mm3 (4.2-5.4); White Blood Count 7.8 K/mm3 (4.4-11.0)
[2024-06-12 11:27] LABS: AST(SGOT) 21 U/L (15-37); Alanine Aminotransfer ALT/SGPT 31 U/L (13-56); Albumin, Serum 3.4 g/dL (3.2-5.0); Alkaline Phosphatase 81 U/L (45-117); Anion Gap 2 (5-15); BUN 11 mg/dL (7-18); BUN/Creat Ratio 7.2 RATIO (10-20); Chloride 105 mmol/L (98-107); Creatinine, Serum 1.52 mg/dL (0.55-1.02); EST Glomerular Filtration Rate 38 mL/min (>60); Est Glom Filt Rate - Afr Amer 46 mL/min (>60); Estimated Creatinine Clearance 44.07 ml/min; Globulin 3.4 g/dL (2.2-4.2); Glucose 98 mg/dL (74-106); Lipase 26 U/L (13-75); Potassium 3.6 mmol/L (3.5-5.1); Protein, Total 6.8 g/dL (6.4-8.2); Sodium Level 138 mmol/L (136-145)
[2024-06-12] MEDS: Ondansetron 4 MG/2 ML Vial IV (11:33)
[2024-06-12 12:03] LABS: Bacteria 0 SEEN /hpf (None Seen); Mucous, Urine 0 SEEN /hpf (<or=2+); Red Blood Cells-Urine 0 SEEN /hpf (0-5); Squamous Epithelial Cells - UA 0 SEEN /hpf (5-10)
[2024-06-12 12:06] LABS: Color, Urine Yellow (Yellow); Glucose, Dipstick Normal (Normal); Ketone-Dipstick Negative (Negative); Leukocyte Esterase-Dipstick 100 /ul (Negative); Nitrite-Dipstick Negative (Negative); Occult Blood-Urine 10 /ul (Negative); Protein-Dipstick 15 mg/dl (Negative); Specific Gravity, Urine 1.005 (1.002-1.030); Urine Bilirubin Dipstick Negative (Negative); Urine Clarity Clear (Clear); Urine Urobilinogen Normal (Normal)
[2024-06-12 12:13] LABS: White Blood Cells 0-5 SEEN /hpf (0-5)
--- NOTE | 2024-06-12 13:11 | ED.RN ---
cam in to go over DC instructions with pt and she had removed her own V. Advised pt next time we need to do that and we need to check the IV cath and site for documentation.
== END 2024-06-12 13:12 | disposition home or self-care (01) ==
PROVIDERS: Emergency Provider Emergency Medicine; PCP Internal Medicine; Visit Provider Emergency Medicine
DX: R10.9 Unspecified abdominal pain (principal); M06.9 Rheumatoid arthritis, unspecified; N18.9 Chronic kidney disease, unspecified; E78.5 Hyperlipidemia, unspecified; R19.7 Diarrhea, unspecified; I12.9 Hypertensive chronic kidney disease with stage 1 through stage 4 chronic kidney disease, or unspecified chronic kidney disease; R53.1 Weakness; Z90.710 Acquired absence of both cervix and uterus; Z79.899 Other long term (current) drug therapy; E03.9 Hypothyroidism, unspecified; K21.9 Gastro-esophageal reflux disease without esophagitis
CPT/HCPCS: 74177; 80053; 81001; 83690; 85025; 96361; 96374; 99283; J7030; Q9967; A4216; J2405

== ENCOUNTER → 2024-07-30 | Outpatient (CLI) | payer BC, SELFPAY ==
[2024-07-30 18:04] LABS: Absolute Lymphocyte Count 0.46 X10^3/uL (0.83-4.51); Absolute Neutrophil Count 4.7 X10^3/uL (2.0-7.7); Basophil# 0.01 X10^3/uL; Basophil% 0.2 % (0-1); Hematocrit 38.2 % (37-47); Hemoglobin 12.2 g/dL (12.0-15.0); Lymphocyte # 0.46 X10^3/ul (0.83-4.51); Lymphocyte % 8.5 % (19-41); Mean Corp Hgb Conc 31.9 g/dL (32-36); Mean Corpuscular Hgb 29.8 pg (27.0-32.0); Mean Corpuscular Volume 93.2 fL (81-99); Mean Platelet Vol. 10.4 fl (6.2-12.0); Monocyte# 0.27 X10^3/uL; NRBC Flagged by Analyzer 0 % (0-5); Neutrophil # 4.67 X10^3/uL (2.7-7.7); Neutrophil % 86.1 % (47-70); POSITIVE DIFFERENTIAL YES; Platelet Count 262 K/mm3 (150-450); RBC Distribution Width CV 13.8 % (11.6-14.6); RBC Distribution Width SD 46.9 fl (35.1-43.9); White Blood Count 5.4 K/mm3 (4.4-11.0)
[2024-07-30 18:09] LABS: Differential Indicated SCAN CRITERIA MET
[2024-07-30 18:32] LABS: Platelet Estimate ADEQUATE (ADEQ); Red Cell Morphology N CHROM NORMAL (NORM C&C)
[2024-07-30 18:33] LABS: Anisocytosis RARE; Macrocytosis RARE
[2024-07-30 19:02] LABS: ALB/GLOB Ratio 1.2 RATIO (0.9-2.4); AST(SGOT) 29 U/L (15-37); Alanine Aminotransfer ALT/SGPT 31 U/L (13-56); Albumin, Serum 3.6 g/dL (3.2-5.0); Alkaline Phosphatase 64 U/L (45-117); Anion Gap 9 (5-15); BUN 9 mg/dL (7-18); BUN/Creat Ratio 8.3 RATIO (10-20); CPK Total, Creatine Kinase 89 U/L (26-192); Chloride 106 mmol/L (98-107); Creatinine, Serum 1.09 mg/dL (0.55-1.02); EST Glomerular Filtration Rate 56 mL/min (>60); Est Glom Filt Rate - Afr Amer 67 mL/min (>60); Glucose 102 mg/dL (74-106); Potassium 4.1 mmol/L (3.5-5.1); Protein, Total 6.6 g/dL (6.4-8.2); Sodium Level 139 mmol/L (136-145)
[2024-08-02 14:08] LABS: Aldolase 5.5 U/L (3.3-10.3)
== END | disposition home or self-care (01) ==
LOC: MTLAB 14:46
PROVIDERS: PCP Internal Medicine; Referring Provider Internal Medicine Rheumatology; Visit Provider Internal Medicine Rheumatology
DX: M06.00 Rheumatoid arthritis without rheumatoid factor, unspecified site (principal); Z79.899 Other long term (current) drug therapy
CPT/HCPCS: 36415; 80053; 82085; 82550; 85025

== ENCOUNTER → 2024-10-26 | Outpatient (CLI) | payer BC, SELFPAY ==
[2024-10-26 15:32] LABS: Absolute Lymphocyte Count 0.53 X10^3/uL (0.83-4.51); Absolute Neutrophil Count 4.7 X10^3/uL (2.0-7.7); Basophil# 0.02 X10^3/uL; Basophil% 0.4 % (0-1); Hematocrit 39.9 % (37-47); Hemoglobin 12.5 g/dL (12.0-15.0); Lymphocyte # 0.53 X10^3/ul (0.83-4.51); Lymphocyte % 9.4 % (19-41); Mean Corp Hgb Conc 31.3 g/dL (32-36); Mean Corpuscular Hgb 28.7 pg (27.0-32.0); Mean Corpuscular Volume 91.7 fL (81-99); Mean Platelet Vol. 10.3 fl (6.2-12.0); Monocyte# 0.37 X10^3/uL; Monocyte% 6.5 % (0-10); NRBC Flagged by Analyzer 0 % (0-5); Neutrophil # 4.72 X10^3/uL (2.7-7.7); Neutrophil % 83.3 % (47-70); POSITIVE DIFFERENTIAL YES; Platelet Count 294 K/mm3 (150-450); RBC Distribution Width CV 13.1 % (11.6-14.6); RBC Distribution Width SD 43.7 fl (35.1-43.9); Red Blood Count 4.35 M/mm3 (4.2-5.4); White Blood Count 5.7 K/mm3 (4.4-11.0)
[2024-10-26 16:23] LABS: ALB/GLOB Ratio 1.3 RATIO (0.9-2.4); AST(SGOT) 23 U/L (15-37); Alanine Aminotransfer ALT/SGPT 22 U/L (13-56); Albumin, Serum 3.9 g/dL (3.2-5.0); Alkaline Phosphatase 74 U/L (45-117); Anion Gap 7 (5-15); BUN 8 mg/dL (7-18); BUN/Creat Ratio 7.4 RATIO (10-20); CPK Total, Creatine Kinase 155 U/L (26-192); Calcium,Total 9.3 mg/dL (8.5-10.1); Chloride 106 mmol/L (98-107); Creatinine, Serum 1.08 mg/dL (0.55-1.02); EST Glomerular Filtration Rate 56 mL/min (>60); Est Glom Filt Rate - Afr Amer 68 mL/min (>60); Glucose 105 mg/dL (74-106); Potassium 4.1 mmol/L (3.5-5.1); Protein, Total 6.9 g/dL (6.4-8.2); Sodium Level 140 mmol/L (136-145)
[2024-11-01 09:22] LABS: Aldolase 4.3 U/L (3.3-10.3)
== END | disposition home or self-care (01) ==
PROVIDERS: PCP Internal Medicine; Referring Provider Internal Medicine Rheumatology; Visit Provider Internal Medicine Rheumatology
DX: M06.00 Rheumatoid arthritis without rheumatoid factor, unspecified site (principal); Z79.899 Other long term (current) drug therapy
CPT/HCPCS: 36415; 80053; 82085; 82550; 85025

== ENCOUNTER → 2025-04-27 | Outpatient (CLI) | payer BC, SELFPAY ==
--- NOTE | 2025-04-27 12:56 | BI_ITS ---
EXAM: SCRN MAMM (CAD)W/ORESTES BILAT 04/27/2025 CLINICAL HISTORY: F, Age 54 y/o , SCREENING MAMMOGRAM TECHNIQUE: Bilateral screening digital breast tomosynthesis with 2D and 3D images. Computer aided detection. COMPARISON: Prior exam(s) dated 10/16/2017, 06/27/2014. FINDINGS: TISSUE DENSITY: The breast tissue is composed of scattered area of fibroglandular density. Bilateral Breast Mammographic Findings: No significant masses, calcifications or other abnormalities are identified. BI/SCRN MAMM (CAD)W/ORESTES BILAT IMPRESSION: Right Breast: BIRADS 1 NEGATIVE. Left Breast: BIRADS 1 NEGATIVE. OVERALL FINAL ASSESSMENT: BIRADS 1 NEGATIVE. RECOMMENDATION: Routine annual follow-up in 1 Year A letter with findings and recommendations will be mailed to the patient. Reading Location: [id number]
--- NOTE | 2025-04-27 13:13 | US_ITS ---
PROCEDURE: PELVIC (NON ) 04/27/2025 REASON FOR EXAM: PELVIC PAIN TECHNIQUE: Transabdominal pelvic ultrasound COMPARISON: None. FINDINGS: Prior hysterectomy. Normal right ovary measuring 2.1 x 2 x 1.7 cm. Normal left ovary measuring 2.1 x 1.5 x 1.3 cm. Normal bilateral ovarian flow without evidence of ovarian torsion. No free fluid in the pelvic cul-de-sac. Unremarkable bladder measuring 288 cc in volume. US/Pelvic (Non ) IMPRESSION: Unremarkable exam. Reading Location[facility]
== END | disposition home or self-care (01) ==
PROVIDERS: PCP Internal Medicine; Referring Provider Internal Medicine; Visit Provider Internal Medicine
DX: Z12.31 Encounter for screening mammogram for malignant neoplasm of breast (principal)
CPT/HCPCS: 76856; 77063; 77067

== ENCOUNTER → 2025-05-26 | Outpatient (CLI) | payer BC, SELFPAY ==
--- NOTE | 2025-05-26 09:02 | RAD_ITS ---
PROCEDURE: ELBOW MIN 3 VIEWS 05/26/2025 REASON FOR EXAM: ELBOW INJURY TECHNIQUE: ELBOW MIN 3 VIEWS COMPARISON: None FINDINGS: Bones: There is evidence of a nondisplaced radial neck fracture. Joints: Joint effusion. Soft tissues: Soft tissue swelling. Other: RAD/Elbow min 3 Views IMPRESSION: Nondisplaced radial neck fracture with evidence of an elbow joint effusion. Reading Location: [place] [id number]
== END | disposition home or self-care (01) ==
LOC: MTRAD 09:00
PROVIDERS: PCP Internal Medicine; Referring Provider Physician Assistant Surgical; Visit Provider Physician Assistant Surgical
DX: S59.909A Unspecified injury of unspecified elbow, initial encounter (principal)
CPT/HCPCS: 73080

== ENCOUNTER → 2025-07-06 | Outpatient (CLI) | payer BC, SELFPAY ==
[2025-07-06 15:25] LABS: Hematocrit 41.7 % (37-47); Hemoglobin 13.6 g/dL (12.0-15.0); Immature Granulocytes Count 0.040 X10^3/uL (0.0-0.0); Mean Corp Hgb Conc 32.6 g/dL (32-36); Mean Corpuscular Volume 92.7 fL (81-99); Mean Platelet Vol. 10.0 fl (6.2-12.0); NRBC Flagged by Analyzer 0 % (0-5); Platelet Count 322 K/mm3 (150-450); RBC Distribution Width CV 13.1 % (11.6-14.6); RBC Distribution Width SD 44.5 fl (35.1-43.9); Red Blood Count 4.50 M/mm3 (4.2-5.4); White Blood Count 7.7 K/mm3 (4.4-11.0)
[2025-07-06 15:53] LABS: AST(SGOT) 22 U/L (<=31); Alanine Aminotransfer ALT/SGPT 13 U/L (<=34); Albumin, Serum 4.1 g/dL (3.5-5.0); Alkaline Phosphatase 82 U/L (35-104); Anion Gap 11 (5-15); BUN 13 mg/dL (4-19); BUN/Creat Ratio 13.8 RATIO (10-20); CPK Total, Creatine Kinase 71 U/L (24-195); Calcium,Total 9.6 mg/dL (7.6-11.0); Carbon Dioxide 26.5 mmol/L (21.0-32.0); Chloride 98 mmol/L (98-108); Globulin 2.7 g/dL (2.2-4.2); Glucose 92 mg/dL (70-99); Potassium 4.5 mmol/L (3.3-5.1)
== END | disposition home or self-care (01) ==
LOC: MTLAB 13:06
PROVIDERS: PCP Internal Medicine; Referring Provider Internal Medicine Rheumatology; Visit Provider Internal Medicine Rheumatology
DX: M06.00 Rheumatoid arthritis without rheumatoid factor, unspecified site (principal); Z79.899 Other long term (current) drug therapy; M79.7 Fibromyalgia
CPT/HCPCS: 36415; 80053; 82550; 85025